=== PATIENT | female | born 1935 | race Caucasian/White ===

== ENCOUNTER 2019-07-06 15:42 | Inpatient (IN) | payer OTHER ==
[2019-07-06] MEDS ORDERED: ALBUTEROL 2.5 MG/3 ML NEB SOL ONE (16:24)
[2019-07-06] MEDS ORDERED: NA CHLORIDE 0.9% 500 ML ONE (16:24)
[2019-07-06] MEDS ORDERED: IPRATROPIUM BROM 0.5MG/2.5ML ONE (16:24)
[2019-07-06 17:17] LABS: Protime INR 1.34
[2019-07-06 17:18] LABS: Absolute Lymphocytes (CBC) 1.1 K/uL (0.7-4.9); Basophils % 0.3 % (0-1.3); Hematocrit 29.9 % (36.0-45.0); Lymphocytes % 7.1 % (15.3-44.8); MPV 7.8 fL (7.6-11.3); RBC Red Blood Cell Count 3.24 M/uL (3.86-4.86)
[2019-07-06] MEDS ORDERED: NA CHLORIDE 0.9% 1,000 ML ONE ×2 (17:28→21:53)
[2019-07-06] MEDS ORDERED: Levofloxacin500mg IV 500 MG/100 ML BAG IV ONE (17:28)
[2019-07-06] MEDS ORDERED: KETOROLAC 30 MG/ML INJ ONE (17:28)
[2019-07-06 17:34] LABS: Albumin 2.3 g/dL (3.4-5.0); Bilirubin Direct 0.4 mg/dL (0-0.2); Magnesium 1.9 mg/dL (1.8-2.4); Potassium 4.6 mmol/L (3.5-5.1); Protein, Total 6.4 g/dL (6.4-8.2); Troponin (Emerg Dept Use Only) 0.08 ng/mL (0.0-0.045)
[2019-07-06 17:52] LABS: Blood Morphology Comment NOT SEEN (NOT SEEN); Platelet Estimate ADEQ; Urine White Blood Cell Casts OK
--- NOTE | 2019-07-06 17:59 | EDPHYS ---
Physician Documentation [facility] Name: Allison Vickers Age: 84 yrs Sex: Female : 1935 Arrival Date: 07/06/2019 Time: 15:44 Bed 14 Private MD: Jalen Curran K ED Physician Terrance Howe HPI: 07/06 16:15 This 84 yrs old Female presents to ER via Wheelchair with complaints of cp Pneumonia. 16:15 The patient or guardian reports cough, that is intermittent. cp 16:15 Onset: The symptoms/episode began/occurred 3 day(s) ago. Associated signs and symptoms: cp Pertinent positives: fever, back pain, Pertinent negatives: chest pain, diarrhea, vomiting, abdominal pain. 16:15 The patient has been recently seen by a physician: the patient's primary care provider, cp with similar presenting complaints, and apparently given a diagnosis of pneumonia, and was sent to the [facility] Emergency Department for further evaluation. Historical: - Allergies: 15:56 Clindamycin; hb 15:56 Codeine; hb - Home Meds: 18:52 hydrocodone-acetaminophen 10-325 mg Oral tab 1 tab every 6 hours [Active]; albuterol ph sulfate 2.5 mg /3 mL (0.083 %) Nebulizer nebu 3 mL 4 times per day [Active]; atorvastatin 40 mg oral tab 1 tab once daily [Active]; carvedilol 12.5 mg oral tab 1 tab 2 times per day [Active]; furosemide 20 mg Oral tab 1 tab once daily [Active]; gabapentin 300 mg oral cap 1 cap 3 times per day [Active]; lisinopril 40 mg Oral tab 1 tab once daily [Active]; loratadine 10 mg oral TbDL 1 tab once daily [Active]; ondansetron HCl 4 mg Oral tab 1 tabs every 8 hours [Active]; pantoprazole 40 mg oral TbEC 1 tab once daily [Active]; Bryant 500 mg oral tab as needed [Active]; potassium chloride 20 mEq Oral TbER 1 tab once daily [Active]; ProAir HFA 90 mcg/actuation inhalation HFAA 2 puffs every 6 hours [Active]; Vitamin D Oral [Active]; - PMHx: 15:56 chronic bronchitis; Hypertension; Arthritis; carpal tunnel syndrome; Hiatal Hernia; hb diverticulosis; iron deficiency anemia; - PSHx: 15:56 Appendectomy; Tubal ligation; Carpal Tunnel Repair; Back; hb - Immunization history:: Adult Immunizations up to date. - Social history:: Smoking status: Patient/guardian denies using tobacco. - Ebola Screening: : No symptoms or risks identified at this time. ROS: 16:20 Constitutional: Positive for poor PO intake, Negative for body aches, chills, fever. cp 16:20 Eyes: Negative for injury, pain, redness, and discharge. cp 16:20 ENT: Negative for drainage from ear(s), ear pain, sore throat, difficulty swallowing, difficulty handling secretions. 16:20 Cardiovascular: Negative for chest pain, edema, palpitations. 16:20 Respiratory: Positive for cough, shortness of breath, Negative for hemoptysis, wheezing. 16:20 Abdomen/GI: Negative for abdominal pain, nausea, vomiting, and diarrhea, constipation, anorexia, black/tarry stool, rectal bleeding. 16:20 Back: Positive for chronic pain. 16:20 : Negative for urinary symptoms. 16:20 Skin: Negative for cellulitis, rash. 16:20 Neuro: Negative for altered mental status, headache, numbness, syncope, weakness. 16:20 All other systems are negative. Exam: 16:25 Constitutional: The patient appears in no acute distress, alert, awake, cp non-diaphoretic, non-toxic, well developed, well nourished, uncomfortable. 16:25 Head/Face: Normocephalic, atraumatic. cp 16:25 Eyes: Periorbital structures: appear normal, Pupils: equal, round, and reactive to light and accomodation, Extraocular movements: intact throughout, Conjunctiva: normal, no exudate, no injection, Sclera: no appreciated abnormality, Lids and lashes: appear normal, bilaterally. 16:25 ENT: External ear(s): are unremarkable, Ear canal(s): are normal, clear, TM's: bulging, is not appreciated, bilaterally, dullness, bilaterally, erythema, is not appreciated, bilaterally, Nose: is normal, Mouth: Lips: moist, Oral mucosa: pink and intact, moist, Posterior pharynx: is normal, airway is patent, no erythema, no exudate. 16:25 Neck: ROM/movement: is normal, is supple, without pain, no range of motions limitations, no meningismus, no nuchal rigidity, Lymph nodes: no appreciated lymphadenopathy. 16:25 Chest/axilla: Inspection: normal, Palpation: is normal, no crepitus, no tenderness. 16:25 Cardiovascular: Rate: normal, Rhythm: regular, Edema: is not appreciated, JVD: is not appreciated. 16:25 Respiratory: the patient does not display signs of respiratory distress, Respirations: labored breathing, is not present, intercostal retractions, are absent, shallow respirations, that is mild, tachypnea, is not appreciated, Breath sounds: decreased breath sounds, that are mild, are located in both bases, stridor, is not appreciated, wheezing: is not appreciated. 16:25 Abdomen/GI: Inspection: abdomen appears normal, Bowel sounds: active, all quadrants, Palpation: abdomen is soft and non-tender, in all quadrants, rebound tenderness, is not appreciated, voluntary guarding, is not appreciated, involuntary guarding, is not appreciated. 16:25 Back: pain, that is moderate, ROM is painful. 16:25 Skin: cellulitis, is not appreciated, no rash present. 16:25 Neuro: Orientation: to person, place \T\ time. Mentation: is normal, Motor: moves all fours, strength is normal. 16:46 ECG was reviewed by the Attending Physician. cp Vital Signs: 15:53 BP 67 / 49; Pulse 82; Resp 20; Temp 97.8; Pulse Ox 89% on R/A; Weight 49.9 kg; Height 5 hb ft. 4 in. (162.56 cm); Pain 9/10; 16:05 BP 89 / 51; ph 17:16 BP 84 / 47; Pulse 69; Resp 18; Pulse Ox 100% on 100% Nebulizer Mask; ph 17:21 BP 88 / 69; ph 17:45 BP 96 / 38; Pulse 69; Resp 16; Pulse Ox 96% on R/A; ph 18:39 BP 99 / 48; Pulse 71; Resp 18; Pulse Ox 93% on R/A; ph 19:22 BP 92 / 48; Pulse 66; Resp 30; Pulse Ox 92% on R/A; rv 19:45 BP 87 / 48; Pulse 73; Resp 16; Pulse Ox 96% on R/A; rv 20:00 BP 83 / 49; Pulse 73; Resp 16; Pulse Ox 96% on R/A; rv 20:15 BP 97 / 49; Pulse 75; Resp 17; Pulse Ox 96% on R/A; rv 15:53 Body Mass Index 18.88 (49.90 kg, 162.56 cm) hb Procedures: 07/07 14:04 Central Line: the site was prepped with Betadine, in sterile fashion, a triple lumen jr8 catheter was inserted, in the right femoral vein, in 1 attempts. placement was verified, by blood return, the site was dressed with 4X4s, Tegaderm, foam tape, using sterile technique, the patient tolerated the procedure, well. MDM: 07/06 16:[address] [facility] 16:30 Differential diagnosis: bronchitis, flu, pneumonia, sepsis. cp 07/07 14:02 Data reviewed: vital signs, nurses notes, lab test result(s), EKG, radiologic studies, jr8 plain films. Data interpreted: Pulse oximetry: on BIPAP is 97 %. Interpretation: acceptable. Counseling: I had a detailed discussion with the patient and/or guardian regarding: the historical points, exam findings, and any diagnostic results supporting the discharge/admit diagnosis, lab results, radiology results, the need for further work-up and treatment in the hospital. ED course: Patient started to deteriorate this AM. Work of breathing had increased and BP started to decreased. Hospital medicine was called down. We switched patients Abx and did a couple of fluid boluses along with increasing levophed. I placed central line in patient. BIPAP also added this AM. Patient doing much better . 07/06 16:13 Order name: Basic Metabolic Panel; Complete Time: 17:48 cp 07/06 17:48 Interpretation: Normal except: NA 135; BUN 36; CRE 2.01; GFR 24. cp 07/06 16:13 Order name: CBC with Diff; Complete Time: 19:04 cp 07/06 17:29 Interpretation: Normal except: WBC 15.9; RBC 3.24; HGB 10.2; HCT 29.9; EARLE% 84.0; LYM% cp 7.1; NEUT A 13.3; MNA 1.4. 07/06 16:13 Order name: LFT's; Complete Time: 17:48 cp 07/06 17:48 Interpretation: Normal except: ALK 139; BILID 0.4; ALB 2.3; GLOB 4.1; A/G 0.6. cp 07/06 16:13 Order name: Magnesium; Complete Time: 17:48 cp 07/06 16:13 Order name: NT PRO-BNP; Complete Time: 17:48 cp 07/06 17:48 Interpretation: Abnormal: NT PRO-BNP 9706. cp 07/06 16:13 Order name: PT-INR; Complete Time: 17:28 cp 07/06 17:29 Interpretation: Reviewed. cp 07/06 16:13 Order name: Troponin (emerg Dept Use Only); Complete Time: 17:48 cp 07/06 17:48 Interpretation: Abnormal: TROPED 0.08. cp 07/06 16:13 Order name: Procalcitonin; Complete Time: 19:04 cp 07/06 19:05 Interpretation: Abnormal: Procalcitonin 57.37. cp 07/06 16:13 Order name: Lactate; Complete Time: 17:28 cp 07/06 17:29 Interpretation: Reviewed. cp 07/06 16:13 Order name: Blood Culture Adult (2) cp 07/06 16:13 Order name: Urine Microscopic Only; Complete Time: 10:29 cp 07/06 17:26 Order name: CBC Smear Scan; Complete Time: 19:04 EDMS 07/06 22:42 Order name: Urine Dipstick--Ancillary (enter results) em1 07/06 23:03 Order name: Urine Dipstick-Ancillary; Complete Time: 10:29 EDMS 07/07 00:23 Order name: Group A Streptococcus Rapid Sc; Complete Time: 10:29 EDMS 07/07 00:28 Order name: Influenza Screen (A ; Complete Time: 10:29 EDMS 07/07 00:43 Order name: Lactate; Complete Time: 10:29 EDMS 07/07 06:13 Order name: Lactate; Complete Time: 10:29 EDMS 07/07 06:14 Order name: CBC with Automated Diff; Complete Time: 10:29 EDMS 07/07 06:19 Order name: Creatine Phosphokinase; Complete Time: 10:29 EDMS 07/07 06:19 Order name: CKMB Creatine Kinase MB; Complete Time: 10:29 EDMS 07/07 06:19 Order name: Troponin I; Complete Time: 10:29 EDMS 07/07 06:58 Order name: Blood Culture EDMS 07/07 07:19 Order name: Basic Metabolic Panel; Complete Time: 10:29 EDMS 07/07 07:19 Order name: Lipid Profile; Complete Time: 10:29 EDMS 07/07 07:19 Order name: T4 Free; Complete Time: 10:29 EDMS 07/07 07:19 Order name: Magnesium; Complete Time: 10:29 EDMS 07/07 07:19 Order name: Thyroid Stimulating Hormone; Complete Time: 10:29 EDMS 07/07 07:46 Order name: Transferrin Sat/Iron Binding; Complete Time: 10:29 EDMS 07/07 07:46 Order name: Ferritin; Complete Time: :29 EDMS 07/06 16:13 Order name: XRAY Chest (1 view); Complete Time: 10:29 cp 07/06 16:13 Order name: EKG; Complete Time: 16:14 cp 07/06 16:13 Order name: Cardiac monitoring; Complete Time: 16:19 cp 07/06 16:13 Order name: EKG - Nurse/Tech; Complete Time: 17:47 cp 07/06 16:13 Order name: IV Saline Lock; Complete Time: 16:20 cp 07/06 16:13 Order name: Labs collected and sent; Complete Time: 16:20 cp 07/06 16:13 Order name: O2 Per Protocol; Complete Time: 17:47 cp 07/06 16:13 Order name: O2 Sat Monitoring; Complete Time: 17:47 cp 07/06 16:13 Order name: Urine Dipstick-Ancillary (obtain specimen); Complete Time: 22:40 cp 07/06 17:06 Order name: Vital Signs; Complete Time: 17:22 cp 07/07 07:46 Order name: Vitamin B12 Level; Complete Time: 10:29 EDMS 07/07 08:43 Order name: RAD; Complete Time: 09:18 EDMS 07/07 09:55 Order name: RAD; Complete Time: 10:29 EDMS EC/04 16:46 Rate is 70 beats/min. Rhythm is regular. [place] interval is normal. QRS interval is normal. cp QT interval is normal. Interpreted by me. Reviewed by me. Administered Medications: 16:57 Drug: Albuterol - atroVENT (3:1) (2.5 mg - 0.5 mg) 3 ml Route: Nebulizer; ph 17:43 Follow up: Response: No adverse reaction ph 16:57 Drug: NS 0.9% 500 ml Route: IV; Rate: bolus; Site: left forearm; ph 17:42 Follow up: Response: No adverse reaction; IV Status: Completed infusion; IV Intake: ph 500ml 17:40 Drug: LevaQUIN 500 mg Volume: 100 ml; Route: IVPB; Infused Over: 60 mins; Site: left ph forearm; 18:38 Follow up: Response: No adverse reaction; IV Status: Completed infusion ph 17:40 Drug: NS 0.9% 500 ml Route: IV; Rate: bolus; Site: left forearm; ph 18:38 Follow up: Response: No adverse reaction; IV Status: Completed infusion; IV Intake: ph 500ml 17:41 Drug: TORadol - Ketorolac 15 mg Route: IVP; Site: left forearm; ph 17:58 Follow up: Response: No adverse reaction; Pain is decreased ph 18:37 Drug: Aspirin Chewable Tablet 324 mg Route: PO; ph 18:38 Follow up: Response: No adverse reaction ph 18:37 Drug: Cefepime 1 grams Route: IVPB; Rate: 200 ml/hr; Infused Over: 30 mins; Site: left ph forearm; 19:25 Follow up: IV Status: Completed infusion rv 19:13 Drug: NS 0.9% (30 ml/kg) 30 ml/kg Route: IV; Rate: bolus; Site: left antecubital; ph Disposition: 07/08 07:54 Co-signature as Attending Physician, Terrance Howe MD I agree with the assessment and [facility] plan of care. Disposition: 07/06/19 17:58 Hospitalization ordered by Marques Thomason for Inpatient Admission. Preliminary diagnosis are Unspecified kidney failure, Other sepsis, Pneumonia due to other specified bacteria. - Bed requested for Intensive Care Unit. - Status is Inpatient Admission. aa5 - Condition is Serious. - Problem is new. - Symptoms have improved. UTI on Admission? No Signatures: Dispatcher [employer] Terrance Lo MD MD cha Nieto, Roman, MD MD rn Calderon, Audri, RN RN aa5 Yariel Light PA PA [id number] Hodan Gayle RN RN ph Terrance Casey PA PA cp Garcia, Shanti, RN RN Sandra Andujar, RN RN Roman Tereza Hossein Owens RN Corrections: (The following items were deleted from the chart) 07/06 16:18 16:17 This 84 yrs old Female presents to ER via Wheelchair with complaints of cp Pneumonia. cp 17:29 17:29 Normal except: WBC 15.9; RBC 3.24; HGB 10.2; HCT 29.9; EARLE% 84.0; LYM% 7.1; NEUT cp A 13.3. cp 07/07 06:05 07/06 17:58 Hospitalization Ordered by Marques Thomason DO for Inpatient Admission. cg Preliminary diagnosis is Unspecified kidney failure; Other sepsis; Pneumonia due to other specified bacteria. Bed requested for Intensive Care Unit. Status is Inpatient Admission. Condition is Serious. Problem is new. Symptoms have improved. UTI on Admission? No. cp 07/07 12:21 06:05 07/06/2019 17:58 Hospitalization Ordered by Marques Thomason DO for Inpatient gm Admission. Preliminary diagnosis is Unspecified kidney failure; Other sepsis; Pneumonia due to other specified bacteria. Bed requested for [facility] ER HOLD. Status is Inpatient Admission. Condition is Serious. Problem is new. Symptoms have improved. UTI on Admission? No. cg 14:24 12:21 07/06/2019 17:58 Hospitalization Ordered by Marques Thomason DO for Inpatient aa5 Admission. Preliminary diagnosis is Unspecified kidney failure; Other sepsis; Pneumonia due to other specified bacteria. Bed requested for Intensive Care Unit. Status is Inpatient Admission. Condition is Serious. Problem is new. Symptoms have improved. UTI on Admission? No. gm
--- NOTE | 2019-07-06 17:59 | ER ---
Nurse's Notes [facility] Name: Allison Vickers Age: 84 yrs Sex: Female : 1935 Arrival Date: 07/06/2019 Time: 15:44 Bed 14 Private MD: Jalen Curran K Diagnosis: Unspecified kidney failure;Other sepsis;Pneumonia due to other specified bacteria Presentation: 07/06 15:52 Presenting complaint: Sent by Dr. Amin for RLL pneumonia, SOB, mid back pain, and hb decreased oral intake x 3 days. Transition of care: patient was not received from another setting of care. Onset of symptoms was July 03, 2019. Risk Assessment: Do you want to hurt yourself or someone else? Patient reports no desire to harm self or others. Care prior to arrival: None. 15:52 Method Of Arrival: Wheelchair hb 15:52 Acuity: JESUS 2 hb 16:11 Initial Sepsis Screen: Does the patient meet any 2 criteria? Mean Arterial Pressure ph (MAP) < 65. Does the patient have a suspected source of infection? Yes: Productive cough/pneumonia. Historical: - Allergies: 15:56 Clindamycin; hb 15:56 Codeine; hb - Home Meds: 18:52 hydrocodone-acetaminophen 10-325 mg Oral tab 1 tab every 6 hours [Active]; albuterol ph sulfate 2.5 mg /3 mL (0.083 %) Nebulizer nebu 3 mL 4 times per day [Active]; atorvastatin 40 mg oral tab 1 tab once daily [Active]; carvedilol 12.5 mg oral tab 1 tab 2 times per day [Active]; furosemide 20 mg Oral tab 1 tab once daily [Active]; gabapentin 300 mg oral cap 1 cap 3 times per day [Active]; lisinopril 40 mg Oral tab 1 tab once daily [Active]; loratadine 10 mg oral TbDL 1 tab once daily [Active]; ondansetron HCl 4 mg Oral tab 1 tabs every 8 hours [Active]; pantoprazole 40 mg oral TbEC 1 tab once daily [Active]; Bryant 500 mg oral tab as needed [Active]; potassium chloride 20 mEq Oral TbER 1 tab once daily [Active]; ProAir HFA 90 mcg/actuation inhalation HFAA 2 puffs every 6 hours [Active]; Vitamin D Oral [Active]; - PMHx: 15:56 chronic bronchitis; Hypertension; Arthritis; carpal tunnel syndrome; Hiatal Hernia; hb diverticulosis; iron deficiency anemia; - PSHx: 15:56 Appendectomy; Tubal ligation; Carpal Tunnel Repair; Back; hb - Immunization history:: Adult Immunizations up to date. - Social history:: Smoking status: Patient/guardian denies using tobacco. - Ebola Screening: : No symptoms or risks identified at this time. Screenin:11 Abuse screen: Denies threats or abuse. Denies injuries from another. Nutritional ph screening: No deficits noted. Tuberculosis screening: No symptoms or risk factors identified. Fall Risk No fall in past 12 months (0 pts). No secondary diagnosis (0 pts). IV access (20 points). Ambulatory Aid- Crutches/Cane/Walker (15 pts). Gait- Weak (10 pts.). Mental Status- Oriented to own ability (0 pts). Total Francisco Fall Scale indicates High Risk Score (45 or more points). Fall prevention measures have been instituted. Side Rails Up X 2 Placed Close to Nursing Station Frequent Obs/Assessments Occuring Family Present and informed to notify staff if the need to leave the bedside As available patient and family educated on Fall Prevention Program and Strategies. Assessment: 16:45 General: Appears in no apparent distress. uncomfortable, slender, well groomed, ph Behavior is cooperative, appropriate for age. Pain: Complains of pain in back. Neuro: Level of Consciousness is awake, alert, obeys commands, Oriented to person, place, time, situation. Cardiovascular: Capillary refill is sluggish in bilateral fingers Patient's skin is warm and dry. Respiratory: Reports shortness of breath cough that is pain with cough Airway is patent Respiratory effort is even, unlabored, Respiratory pattern is regular, symmetrical, Breath sounds are diminished bilaterally. GI: Reports decreased appetite x 3 days Patient currently denies abdominal pain, diarrhea, nausea, vomiting. Derm: Skin is fragile, is thin, Skin is pink, warm \T\ dry. Musculoskeletal: Circulation, motion, and sensation intact. Range of motion: intact in all extremities. 17:45 Reassessment: Patient appears in no apparent distress at this time. Patient and/or ph family updated on plan of care and expected duration. Pain level reassessed. Patient is alert, oriented x 3, equal unlabored respirations, skin warm/dry/pink. 18:39 Reassessment: Patient appears in no apparent distress at this time. Patient and/or ph family updated on plan of care and expected duration. Pain level reassessed. Patient is alert, oriented x 3, equal unlabored respirations, skin warm/dry/pink. Patient denies pain at this time. 19:22 Reassessment: Patient appears in no apparent distress at this time. PATIENT APPEARS TO rv BE COMFORTABLE AT THIS MOMENT. HOSPITALIST CAME IN AND TALKED TO THE PATIENT AND FAMILY, EXPLAINED THE PLAN OF CARE. PATIENT IS FOR ADMISSION IN ICU. PATIENT AND FAMILY AGREED. 20:20 Reassessment: BLOOD PRESSURE STAYS ON THE LOW SIDE AFTER THE BOLUS 30ML/KG. REFERRED TO rv DR CASE, GIVEN ANOTHER BOLUS OF NS. PRESSURE IS MORE STABLE OF THIS MOMENT. PATIENT AND FAMILY UPDATED ON THE STATUS OF BED ASSIGNMENT. 07/07 13:50 Reassessment: Gave report to SAMANTHA Wheeler. Information from the SBAR was given. all rb1 questions asked and answered. Vital Signs: 07/06 15:53 BP 67 / 49; Pulse 82; Resp 20; Temp 97.8; Pulse Ox 89% on R/A; Weight 49.9 kg; Height 5 hb ft. 4 in. (162.56 cm); Pain 9/10; 16:05 BP 89 / 51; ph 17:16 BP 84 / 47; Pulse 69; Resp 18; Pulse Ox 100% on 100% Nebulizer Mask; ph 17:21 BP 88 / 69; ph 17:45 BP 96 / 38; Pulse 69; Resp 16; Pulse Ox 96% on R/A; ph 18:39 BP 99 / 48; Pulse 71; Resp 18; Pulse Ox 93% on R/A; ph 19:22 BP 92 / 48; Pulse 66; Resp 30; Pulse Ox 92% on R/A; rv 19:45 BP 87 / 48; Pulse 73; Resp 16; Pulse Ox 96% on R/A; rv 20:00 BP 83 / 49; Pulse 73; Resp 16; Pulse Ox 96% on R/A; rv 20:15 BP 97 / 49; Pulse 75; Resp 17; Pulse Ox 96% on R/A; rv 15:53 Body Mass Index 18.88 (49.90 kg, 162.56 cm) hb ED Course: 15:44 Patient arrived in ED. as 15:45 Jalen Curran MD is Private Physician. as 15:53 Triage completed. hb 15:53 Arm band placed on. hb 15:57 Terrance Casey PA is PHCP. cp 15:57 Terrance Howe MD is Attending Physician. cp 16:02 Hodan Gayle, SAMANTHA is Primary Nurse. ph 16:12 Patient has correct armband on for positive identification. Placed in gown. Bed in low ph position. Call light in reach. Side rails up X2. monitoring tech on. Pulse ox on. NIBP on. Door closed. Warm blanket given. 16:32 XRAY Chest (1 view) In Process Unspecified. EDMS 16:45 Inserted saline lock: 22 gauge in left forearm, using aseptic technique. ph 16:59 EKG done, by school laboratory technician. reviewed by Terrance CATALAN. 3 17:54 Marques Case DO is Hospitalizing Provider. cp 18:39 Patient admitted, IV remains in place. ph 22:30 No provider procedures requiring assistance completed. Chowdary cath inserted, using rv sterile technique, 16 Fr., by or, balloon inflated, to gravity drainage, urine specimen collected. 10/05 07:00 Inserted 22 G R forearm, inserted by mini shifter. rb1 Administered Medications: 10/04 16:57 Drug: Albuterol - atroVENT (3:1) (2.5 mg - 0.5 mg) 3 ml Route: Nebulizer; ph 17:43 Follow up: Response: No adverse reaction ph 16:57 Drug: NS 0.9% 500 ml Route: IV; Rate: bolus; Site: left forearm; ph 17:42 Follow up: Response: No adverse reaction; IV Status: Completed infusion; IV Intake: ph 500ml 17:40 Drug: LevaQUIN 500 mg Volume: 100 ml; Route: IVPB; Infused Over: 60 mins; Site: left ph forearm; 18:38 Follow up: Response: No adverse reaction; IV Status: Completed infusion ph 17:40 Drug: NS 0.9% 500 ml Route: IV; Rate: bolus; Site: left forearm; ph 18:38 Follow up: Response: No adverse reaction; IV Status: Completed infusion; IV Intake: ph 500ml 17:41 Drug: TORadol - Ketorolac 15 mg Route: IVP; Site: left forearm; ph 17:58 Follow up: Response: No adverse reaction; Pain is decreased ph 18:37 Drug: Aspirin Chewable Tablet 324 mg Route: PO; ph 18:38 Follow up: Response: No adverse reaction ph 18:37 Drug: Cefepime 1 grams Route: IVPB; Rate: 200 ml/hr; Infused Over: 30 mins; Site: left ph forearm; 19:25 Follow up: IV Status: Completed infusion rv 19:13 Drug: NS 0.9% (30 ml/kg) 30 ml/kg Route: IV; Rate: bolus; Site: left antecubital; ph Intake: 17:42 IV: 500ml; Total: 500ml. ph 18:38 IV: 500ml; Total: 1000ml. ph Outcome: 17:58 Decision to Hospitalize by Provider. cp 07/07 06:51 Admitted to ER Hold. Please see [facility] for further documentation. rv Condition: stable Discharge instructions given to patient, Instructed on the need for admit. 14:24 Patient left the ED. aa5 Signatures: Dispatcher [employer] EDMS Denisse Ley Audri RN RN aa5 Hodan Gayle RN RN ph Terrance Casey PA PA cp Caridad Woodruff, RN RN [facility] Sandra Andujar RN RN Gertrudis Mclaughlin [facility] Hossein Owens RN RN rv Corrections: (The following items were deleted from the chart) 07/06 15:54 15:52 Presenting complaint: Sent by Dr. Amin for pneumonia, SOB, and decreased hb oral intake x 3 days hb 15:56 15:52 Presenting complaint: Sent by Dr. Amin for pneumonia, SOB, mid back pain, hb and decreased oral intake x 3 days hb
[2019-07-06] MEDS ORDERED: ASPIRIN 81 MG CHEWABLE TABLET ONE (18:21)
[2019-07-06] MEDS ORDERED: CEFEPIME 1 GM/100 ML BAG IV ONE (18:21)
[2019-07-06] MEDS ORDERED: NA CHLORIDE 0.9% 2,000 ML ONE (19:06)
--- NOTE | 2019-07-06 19:54 | P.HP ---
Certification for Inpatient Patient admitted to: Inpatient With expected LOS: >2 Midnights Patient will require the following post-hospital care: None Practitioner: I am a practitioner with admitting privileges, knowledge of patient current condition, hospital course, and medical plan of care. Services: Services provided to patient in accordance with Admission requirements found in Title 42 Section 412.3 of the Code of Federal Regulations Patient History Date of Service: 07/06/19 Primary Care Provider: Dr. Wong; Cardiology-Dr. Ash Reason for admission: Fatigue, cough, fever History of Present Illness: 84-year-old female presented to the emergency room with fatigue, cough and fever. Patient with history of hypertension and chronic vertebral fractures. Patient takes lisinopril/carvedilol/Lasix. Over the past week patient has been very tired. She also reported cough and congestion. Over the last 2 days she has been running fever. She denies any nausea, vomiting, diarrhea or constipation. She denies any chest pain. She thought it maybe allergies. Her symptoms did not improve therefore she came to the ER for further evaluation. In the ER patient was found to be hypotensive with blood pressures around 75. Patient was given IV fluid bolus per protocol. Patient found to have right sided pneumonia. White count 15.9, hemoglobin 10.2. Sodium 135, potassium 4.6. BUN of 36, creatinine 2.01 with a GFR of 24. Glucose 96. Troponin 0.08. BNP 9700. Lactic acid within normal range at 1.4 but pro calcitonin elevated at 57. Patient was admitted for sepsis/pneumonia. Sepsis protocol in place. When I saw the patient in the ER, she appeared comfortable. Blood pressure still remained low. She was getting her 30 milligram/kilogram bolus of IV fluids. Antibiotics have been initiated. Home medications list reviewed: Yes - Past Medical/Surgical History Diabetic: No -: Hypertension -: Chronic vertebral fractures -: Former smoker -: Back surgery -: Appendectomy Psychosocial/ Personal History: Patient is - Family History Family History: Reviewed- Non-Contributory - Social History Smoking Status: Former smoker Alcohol use: No CD- Drugs: No Caffeine use: Yes Place of Residence: Home Review of Systems General: Fever, Chills, Weakness, Malaise, As per HPI Eyes: Unremarkable ENT: Nose Congestion, As per HPI Respiratory: Cough, Shortness of Breath, As per HPI Cardiovascular: Unremarkable Gastrointestinal: Unremarkable Genitourinary: Unremarkable Musculoskeletal: Unremarkable Integumentary: Unremarkable Neurological: Unremarkable Lymphatics: Unremarkable Physical Examination - Physical Exam General: Alert, In no apparent distress, Oriented x3, Cooperative HEENT: Atraumatic, Normocephalic, PERRLA, Other (Dry mucous membranes) Neck: Supple, No Thyromegaly Respiratory: Crackles/rales (Crackles to the right side) Cardiovascular: Normal pulses, Regular rate/rhythm Gastrointestinal: Normal bowel sounds, Soft and benign, Non-distended, No tenderness, No masses, No rebound, No guarding Musculoskeletal: No contractures, No erythema, No tenderness, No warmth, Kyphosis, Scoliosis Integumentary: No tenderness/swelling, No erythema, No warmth, No cyanosis Neurological: Normal speech, Normal strength at 5/5 x4 extr, Normal tone, Normal affect - Studies Laboratory Data (last 24 hrs) 07/06/19 16:40: PT 15.6 H, INR 1.34 07/06/19 16:40: WBC 15.9 H, Hgb 10.2 L, Hct 29.9 L, Plt Count 233 07/06/19 16:40: Sodium 135 L, Potassium 4.6, BUN 36 H, Creatinine 2.01 H, Glucose 96, Magnesium 1.9, Total Bilirubin 1.0, AST 20, ALT 21, Alkaline Phosphatase 139 H Assessment and Plan - Plan Impression: Sepsis secondary to right upper lobe pneumonia Acute renal injury suspect dehydration Elevated troponin likely cardiac stress related to sepsis History of hypertension Chronic vertebral fractures Anemia likely of chronic disease Plan: Sepsis secondary to right upper lobe pneumonia: Patient will be admitted to ICU for close monitoring. Will continue with sepsis protocol. Patient has received 30 milligram/kilogram bolus of normal saline. Will continue with aggressive IV fluid hydration. Will maintain map of 65. IV antibiotics- Rocephin and Zithromax initiated. Will obtain sputum, blood cultures. Will recheck chest x-ray tomorrow. Will also obtain echocardiogram to further evaluate. Cardiology consulted due to elevated troponin but this is likely related to cardiac stress. Will continue to monitor closely. Will hold her lisinopril and Lasix due to low blood pressure. Monitor electrolytes. Replacement protocol in place. DVT prophylaxis-Lovenox provided. Daytime hospitalist will continue her care. Will follow up on sepsis protocol. Anticipate discharge in the next 3-4 days pending clinical improvement. Acute renal injury suspect dehydration: Continue with aggressive IV fluid hydration. Replace in protocol in place. Continue to monitor lab closely. Will hold her lisinopril and Lasix. Elevated troponin likely cardiac stress related to sepsis: Continue monitor cardiac enzymes. Cardiology consulted to further assess. Likely no need for intervention. History of hypertension: Continue to hold blood pressure medication from home. Patient takes lisinopril and Lasix. Need to investigate other medications. Chronic vertebral fractures: May need to provide medication for pain. Anemia likely of chronic disease: Will check iron and B12 studies. Monitor hemoglobin closely. Discharge Plan: Home Plan to discharge in: Greater than 2 days - Advance Directives Does patient have a Living Will: No Does patient have a Durable POA for Healthcare: No - Code Status/Comfort Care Code Status Assessed: Yes (Patient is full code) Time Spent Managing Pts Care (In Minutes): 60
[2019-07-06] MEDS ORDERED: NOREPINEPHRINE 4mg/D5W 250mL 4 MG/250 ML BAG IV ONE (21:51)
[2019-07-06] MEDS ORDERED: BENZONATATE 100 MG CAP PO PRN (22:41)
[2019-07-06] MEDS ORDERED: FAMOTIDINE 20 MG TAB PO SCH (22:41)
[2019-07-06] MEDS ORDERED: ONDANSETRON 4 MG/2 ML VIAL IV PRN (22:41)
[2019-07-06] MEDS ORDERED: ACETAMINOPHEN 500 MG TAB PO PRN (22:41)
[2019-07-06] MEDS ORDERED: CEFTRIAXONE 1 GM/NS 50 ML 1 GM/50 ML BAG IV SCH (22:41)
[2019-07-06] MEDS ORDERED: GUAIFENESIN 600 MG SA TAB PO PRN (22:41)
[2019-07-06] MEDS ORDERED: NACHLORIDE 0.45% 1,000 ML IV SCH (22:41)
[2019-07-06 23:02] LABS: Urine Blood NEGATIVE (NEG); Urine Glucose NEGATIVE (NEG); Urine Protein 1+ (NEG); Urine Specific Gravity 1.015 (1.005-1.030)
[2019-07-06 23:13] LABS: Urine Amorphous Sediment 2+ /HPF (NONE SEEN); Urine Bacteria <20 /HPF (<20); Urine Culture Reflex Order NOT NEEDED; Urine Mucus LIGHT /HPF (NONE SEEN); Urine RBC NONE SEEN /HPF (NONE SEEN)
[2019-07-06] MEDS ORDERED: NACHLORIDE 0.45% 1,000 ML IV ONE (23:34)
[2019-07-06] MEDS ORDERED: CEFTRIAXONE/SWI 1gm 1 GM/10 ML SYR ONE (23:34)
[2019-07-06] MEDS ORDERED: FAMOTIDINE 20 MG/2 ML VIAL IV ONE (23:34)
--- NOTE | 2019-07-07 00:48 | P.INFCA ---
Sepsis Focused Assessment - Focused Assessment Complete? Sepsis Focused Assessment Completed?: Yes - Sepsis Screen Result Septic Shock: Positive - Evaluation Current stage of sepsis: Septic shock - Vital Signs Reviewed: Yes Heart rate: 66 Blood Pressure: 97/60 Respiratory Rate: 15 - Examination Date exam was performed: 07/07/19 Time exam was performed: 00:48 Heart: Regular rate/rhythm Lungs: Crackles Peripheral pulses: 3+ Normal Peripheral pulse location: Radial Capillary refill: >2 Seconds Skin examination: Normal turgor
--- NOTE | 2019-07-07 00:53 | P.PN ---
Subjective Date of Service: 07/07/19 Primary Care Provider: Dr. Wong; Cardiology-Dr. Ash Chief Complaint: Fatigue, cough, fever Subjective: Other (Patient stable this time. Patient was started on Levophed earlier. Blood pressure improved. Continue IV antibiotic therapy.) Physical Examination - Vital Signs Blood Pressure: 97/60 Pulse: 66 Respirations: 15 Pulse Ox (%): 100 - Physical Exam General: Alert, In no apparent distress, Oriented x3, Cooperative HEENT: Atraumatic Neck: Supple Respiratory: Crackles/rales (Crackles to the bases but good air movement bilateral) Cardiovascular: Normal pulses, Regular rate/rhythm Gastrointestinal: Normal bowel sounds, Soft and benign, Non-distended, No tenderness, No masses, No rebound, No guarding Musculoskeletal: No erythema, No tenderness, No warmth Integumentary: No tenderness/swelling, No erythema, No warmth, No cyanosis Neurological: Normal speech, Normal strength at 5/5 x4 extr, Normal tone, Normal affect - Studies Laboratory Data (last 24 hrs) 07/06/19 16:40: PT 15.6 H, INR 1.34 07/06/19 16:40: WBC 15.9 H, Hgb 10.2 L, Hct 29.9 L, Plt Count 233 07/06/19 16:40: Sodium 135 L, Potassium 4.6, BUN 36 H, Creatinine 2.01 H, Glucose 96, Magnesium 1.9, Total Bilirubin 1.0, AST 20, ALT 21, Alkaline Phosphatase 139 H Medications List Reviewed: Yes Assessment & Plan Discharge Plan: Home Plan to discharge in: Greater than 2 days - Code Status/Comfort Care Code Status Assessed: Yes (Patient is full code) Physician Review Additional Text: Impression: Septic shock secondary to right upper lobe pneumonia Acute renal injury suspect dehydration Elevated troponin likely cardiac stress related to sepsis History of hypertension Chronic vertebral fractures Anemia likely of chronic disease Plan: Septic shock secondary to right upper lobe pneumonia: Patient continues with aggressive IV fluid hydration. Patient was started on Levophed to maintain map of 65. Continue IV antibiotic therapy-Rocephin, Zithromax. Sputum, blood cultures obtained. Recheck chest x-ray this morning. Maintain sats above 90%. Continue to follow lab closely. Echocardiogram ordered. Patient admitted to ICU for close monitoring. Cardiology consulted due to elevated troponin but this is likely related to cardiac stress. Will hold her lisinopril and Lasix due to low blood pressure and acute renal failure. Will consult Nephrology to further monitor and address. Electrolyte replacement protocol in place. DVT prophylaxis-Lovenox provided. Daytime hospitalist will continue her care. Anticipate discharge in the next 3-4 days with clinical improvement Acute renal injury suspect dehydration: Continue with aggressive IV fluid hydration. Patient now on Levophed. Continue to hold lisinopril/Lasix. Nephrology consulted to further address. Elevated troponin likely cardiac stress related to sepsis: Continue to monitor cardiac enzymes. Cardiology consulted to further assess. Likely no need for intervention. Echocardiogram ordered. History of hypertension: Continue to hold blood pressure medication-lisinopril/ Lasix. Need to investigate other medications. Chronic vertebral fractures: May need to provide medication for pain. Anemia likely of chronic disease: Will check iron and B12 studies. Monitor hemoglobin closely. Time Spent Managing Pts Care (In Minutes): 55
[2019-07-07] MEDS ORDERED: NOREPINEPHRINE 4mg/D5W 250mL 4 MG/250 ML BAG IV ONE (02:57)
--- NOTE | 2019-07-07 04:39 | EKG ---
Test Date: 2019-07-06 Test Time: 16:41:22 Jewelry Maker: DANY MEASUREMENT RESULTS: Intervals: Rate: 70 MN: 130 QRSD: 70 QT: 358 QTc: 386 [place]: P: 75 MN: 130 QRS: 79 T: 62 INTERPRETIVE STATEMENTS: Normal sinus rhythm Normal ECG Compared to ECG 06/07/1997 07:03:00 No significant changes Electronically Signed On 07-07-19 04:38:27 CDT by Bruce Mckenzie
[2019-07-07 06:04] LABS: Absolute Lymphocytes (CBC) 0.4 K/uL (0.7-4.9); Basophils % 0.3 % (0-1.3); Hematocrit 31.7 % (36.0-45.0); Lymphocytes % 11.7 % (15.3-44.8); MPV 7.8 fL (7.6-11.3); RBC Red Blood Cell Count 3.39 M/uL (3.86-4.86)
[2019-07-07 06:19] LABS: CKMB Creatine Kinase MB 2.4 ng/mL (0.3-3.6); Troponin I 0.04 ng/mL (0.0-0.045)
[2019-07-07 07:19] LABS: Magnesium 1.7 mg/dL (1.8-2.4); Potassium 4.6 mmol/L (3.5-5.1); Thyroid Stimulating Hormone 0.817 uIU/mL (0.360-3.740)
[2019-07-07 07:46] LABS: Ferritin 212.6 ng/mL (8-388)
[2019-07-07] MEDS: HYDROCODONE/APAP 7.5/325 MG TAB PO PRN ×2 (07:50→18:18)
[2019-07-07] MEDS ORDERED: MAGNESIUM SULFATE 1 gm IVPB 1 GM/100 ML BAG IV ONE ×2 (08:04→09:07)
--- NOTE | 2019-07-07 08:41 | RAD REPORT ---
EXAM DESCRIPTION: Jairon Single View07/07/2019 7:01 am CLINICAL HISTORY: Chest pain COMPARISON: July 06, 2019 FINDINGS: Mild worsening in the right upper lobe consolidation No other change IMPRESSION: Mild worsening in the right upper lobe consolidation probably representing pneumonia. Th is be followed until it is clear to help exclude a post obstructive process/underlying mass
[2019-07-07] MEDS: FOLIC ACID 1 MG TABLET PO SCH (09:00)
[2019-07-07] MEDS: ASPIRIN EC 81 MG TAB PO SCH (09:00)
[2019-07-07] MEDS: FAMOTIDINE 20 MG TAB PO SCH (09:00)
[2019-07-07] MEDS ORDERED: ENOXAPARIN 40 MG/0.4 ML SQ SCH (09:00)
[2019-07-07] MEDS: THIAMINE HCL 100 MG TABLET PO SCH (09:00)
[2019-07-07] MEDS ORDERED: AZITHROMYCIN IV 500 MG in NA CHLORIDE 0.9% 250 ML IVPB SCH (09:00)
[2019-07-07] MEDS ORDERED: CEFTRIAXONE/SWI 1gm 1 GM/10 ML SYR IV SCH (09:00)
[2019-07-07] MEDS: ENOXAPARIN 30 MG/0.3 ML SQ SCH (09:00)
[2019-07-07] MEDS ORDERED: IPRATROPIUM BROM 0.5MG/2.5ML ONE (09:03)
[2019-07-07] MEDS ORDERED: ALBUTEROL 2.5 MG/3 ML NEB SOL ONE (09:03)
[2019-07-07] MEDS ORDERED: FOLIC ACID 1 MG TABLET ONE (09:06)
[2019-07-07] MEDS ORDERED: ENOXAPARIN 30 MG/0.3 ML SQ ONE (09:06)
[2019-07-07] MEDS ORDERED: ASPIRIN EC 81 MG TAB PO ONE (09:06)
[2019-07-07] MEDS ORDERED: FAMOTIDINE 20 MG/2 ML VIAL IV ONE (09:07)
[2019-07-07] MEDS ORDERED: NACHLORIDE 0.45% 0 ML IV ONE (09:07)
[2019-07-07] MEDS ORDERED: CEFTRIAXONE/SWI 1gm 0 GM/0 ML SYR ONE (09:07)
[2019-07-07] MEDS: ALBUTEROL 2.5 MG/3 ML NEB SOL NEB PRN (09:10)
[2019-07-07] MEDS: IPRATROPIUM BROM 0.5MG/2.5ML NEB PRN (09:10)
[2019-07-07] MEDS ORDERED: ACETAMINOPHEN 500 MG TAB ONE (09:24)
[2019-07-07] MEDS ORDERED: Levofloxacin500mg IV 500 MG/100 ML BAG IV ONE (09:27)
[2019-07-07] MEDS ORDERED: FAMOTIDINE 20 MG TAB ONE (09:27)
[2019-07-07] MEDS ORDERED: D5 0.45 NS 1,000 ML IV ONE (09:27)
[2019-07-07] MEDS ORDERED: ACETAMINOPHEN 500 MG TAB PO ONE (09:30)
--- NOTE | 2019-07-07 09:53 | RAD REPORT ---
EXAM DESCRIPTION: Jairon Single View07/07/2019 9:35 am CLINICAL HISTORY: Shortness of breath COMPARISON: July 07 FINDINGS: Mild worsening in the right upper lobe consolidation. Left lung appears clear The heart is normal size IMPRESSION: Mild worsening in the right upper lobe consolidation consistent with pneumonia. This be followed until it is clear to exclude a post obstructive process/underlying mass
--- NOTE | 2019-07-07 09:54 | RAD REPORT ---
EXAM DESCRIPTION: Jairon Single View07/07/2019 8:30 am CLINICAL HISTORY: Cough COMPARISON: none FINDINGS: Moderate right upper lobe opacity Left lung appears clear of acute infiltrate. The heart is normal size IMPRESSION: Moderate right upper lobe opacity probably pneumonia
[2019-07-07] MEDS: Levofloxacin500mg IV 500 MG/100 ML BAG IV SCH (10:00)
[2019-07-07] MEDS: CEFEPIME/SWI 1gm 10 ML IV SCH (10:00)
[2019-07-07] MEDS ORDERED: D5 0.45 NS 1,000 ML IV SCH (10:00)
[2019-07-07] MEDS ORDERED: NA CHLORIDE 0.9% 500 ML ONE ×2 (10:28→11:46)
[2019-07-07] MEDS ORDERED: THIAMINE HCL 100 MG TABLET ONE (11:23)
--- NOTE | 2019-07-07 13:22 | P.CNS ---
Date of Consult: 07/07/19 Reason for Consult: AMBER Primary Care Provider: Dr. Wong; Cardiology-Dr. Ash Chief Complaint: Fatigue, cough, fever History of Present Illness: An 84 Y/o woman with PMHX of HTN , CHF ,CHronic vertebral fractures.Patient takes lisinopril/carvedilol/Lasix. sent from pulmonary clinic for PNA Pt was complaining of SOB and productive cough for 2-3 days, seen by her die stamper , CXR revealed PNA, pt instructed to come to ER in ER pt was hypotensive , febrile, Cr elevated to 2.0, elevated pro josette , teran placed with minimally UO on admission no chest pain, nausea , vomiting or diarrhea Allergies clindamycin Allergy (Verified 07/06/19 22:38) Itching/Hives/Rash codeine Allergy (Verified 07/06/19 22:38) Itching/Hives/Rash - Past Medical/Surgical History Diabetic: No -: Hypertension -: Chronic vertebral fractures -: Former smoker -: Back surgery -: Appendectomy Psychosocial/ Personal History: Patient is - Social History Alcohol use: No CD- Drugs: No Caffeine use: Yes Place of Residence: Home Physical Examination Temp Pulse Resp BP Pulse Ox 98.4 F 83 21 H 104/55 L 95 07/07/19 12:00 07/07/19 12:00 07/07/19 12:00 07/07/19 12:00 07/07/19 12:00 General: Oriented x3, Mild distress HEENT: Atraumatic Neck: Supple, Without JVD or thyroid abnormality Respiratory: Other (Rt sided rales ) Cardiovascular: No edema, Regular rate/rhythm, No gallops, No rubs, No murmurs Gastrointestinal: Soft and benign Laboratory Data (last 24 hrs) 07/06/19 16:40: PT 15.6 H, INR 1.34 07/06/19 16:40: WBC 15.9 H, Hgb 10.2 L, Hct 29.9 L, Plt Count 233 07/06/19 16:40: Sodium 135 L, Potassium 4.6, BUN 36 H, Creatinine 2.01 H, Glucose 96, Magnesium 1.9, Total Bilirubin 1.0, AST 20, ALT 21, Alkaline Phosphatase 139 H - Problems (1) AMBER (acute kidney injury) Current Visit: Yes Status: Acute Conclusions/Impression: AMBER Cr baseline ~1.0 Possibly due to ischemic ATN and dehydration will dc IVF Cont pressers Cont to hold lasix Septic shock due to PNA Cont ABx f/u cultures BP meds on hold Anemia GINGER will start IV iron when more stable prognosis guarded
[2019-07-07] MEDS ORDERED: HYDROCORTISONE SUC 100 MG INJ IV ONE (13:40)
--- NOTE | 2019-07-07 14:15 | CON ---
Chief Complaint: Trouble breathing. History Of Present Illness: Ms. Vickers came into the hospital with trouble breathing. Entire right u pper lobe is consolidated. She has abnormal procalcitonin levels, other signs of sepsis. She is on norepinephrine now. Her blood pressure is just 78/52. She has a history of severe obstructive lung disease. She was a heavy cigarette smoker until September 2018. She sees Dr. Ash. Dr. Ash told her that she does not have any significant heart disease. She has not had intracoronary stents or by pass surgery or heart catheterization. Apparently, noninvasive tests were done. We do not have any of those. Those are under the care of Dr. Ash. The patient is not having chest pain that she has abnormal troponins, and I am asked to evaluate her for that. Medications: The patient's outpatient medications had been albuterol, Atrovent. Actually, we are no t sure what her outpatient medications had been. Past History: Includes chronic bronchitis, hypotension, arthritis, carpal tunnel syndrome, hiatal he rnia, iron-deficiency anemia, diverticulosis. She has had appendectomy, tubal ligation. Allergies: SHE IS ALLERGIC TO CLINDAMYCIN AND CODEINE. Physical Examination: Vital signs: The patient's heart rate is 90. Her blood pressure 78/52. Attempts to raise her blood pressure being done with the norepinephrine. General: She is alert, not in distress. Cardiac: Within normal limits. Extremities: The skin is still well perfused despite her low blood pressure. Diagnostic Studies: Her electrocardiogram shows sinus rhythm. It is normal in every way. Laboratory Data: Reveals troponin levels of 0.08. N-terminal proBNP is 9706. Creatinine 2.01. She has elevated procalcitonin levels. The procalcitonin was 57.37 when she came in. Impression: The patient's slight rise in enzymes is no doubt related to sepsis from pneumonia, has c onsolidated lung looks. I would be concerned that there might be a mass and not just pneumonia there . At some point, doing a CAT scan might be useful with the patient is deteriorating fairly quickly a nd I think perhaps admitting to her to a higher level of care would be good, I would be in favor of leela gonzalez to a tertiary care facility. She is not even in the ICU now. She is in the ER, hypotensive with sepsis. SH/MODL Voice ID: [id number] Report ID: [id number]
[2019-07-07] MEDS ORDERED: WATER FOR INJ,STERILE 10 ML IV PRN (15:02)
[2019-07-07] MEDS: NOREPINEPHRINE 4 MG in D5W 250 ML IV PRN ×3 (15:16→21:15)
[2019-07-07 17:51] LABS: Urine Protein/Creatinine Ratio 1.38 ratio (<0.15)
[2019-07-07] MEDS: TRAMADOL HCL 50 MG TAB PO PRN (20:22)
[2019-07-07] MEDS ORDERED: FAMOTIDINE 20 MG TAB PO SCH (21:00)
[2019-07-07] MEDS ORDERED: CEFEPIME 1 GM/VIAL IV SCH (21:00)
[2019-07-08] MEDS: NOREPINEPHRINE 4 MG in D5W 250 ML IV PRN (00:01)
[2019-07-08] MEDS: HYDROCODONE/APAP 7.5/325 MG TAB PO PRN (04:45)
[2019-07-08 05:56] LABS: Absolute Lymphocytes (CBC) 0.4 K/uL (0.7-4.9); Basophils % 0.3 % (0-1.3); Hematocrit 28.5 % (36.0-45.0); Lymphocytes % 4.5 % (15.3-44.8); MPV 8.4 fL (7.6-11.3); RBC Red Blood Cell Count 3.11 M/uL (3.86-4.86)
[2019-07-08 06:07] LABS: Magnesium 2.2 mg/dL (1.8-2.4); Potassium 4.4 mmol/L (3.5-5.1)
[2019-07-08] MEDS: TRAMADOL HCL 50 MG TAB PO PRN (07:19)
--- NOTE | 2019-07-08 08:05 | RAD REPORT ---
EXAM DESCRIPTION: US - Renal Ultrasound-Complete - 07/07/2019 9:23 pm CLINICAL HISTORY: Acute kidney injury COMPARISON: None. FINDINGS: The right kidney measures 10.3 x 3.6 x 5.1 cm. The left kidney measures 10.2 x 4.4 x 3.9 cm. Renal cortical thickness and echogenicity are normal. No hydronephrosis or suspicious renal mass. An 11 millimeter cyst is present in the upper pole of the right kidney with a 15 millimeter cyst med ial lower pole right kidney. Urinary bladder is contracted around a Chowdary catheter limiting assessment. IMPRESSION: No hydronephrosis or suspicious renal mass. Benign right renal cysts are identified up to 15 mm in size. Bladder is contracted around a Chowdary catheter.
--- NOTE | 2019-07-08 08:57 | RAD REPORT ---
EXAM DESCRIPTION: RAD - Chest Single View - 07/08/2019 8:13 am CLINICAL HISTORY: Pneumonia COMPARISON: July 07 TECHNIQUE: AP portable chest image was obtained 0810 hours . FINDINGS: Large right upper lobe pneumonia is again identified. Findings are improved but differenti al is minimal. No new finding in the left lung field or lower right lung field. Cardiomediastinal jessica houette is stable. No measurable pleural effusion and no pneumothorax. No acute bony abnormality seen . No acute aortic findings suspected. IMPRESSION: Large right upper lobe pneumonia showing improvement. Interval change from prior day is minimal.
[2019-07-08] MEDS: Levofloxacin500mg IV 500 MG/100 ML BAG IV SCH (09:35)
[2019-07-08] MEDS: ENOXAPARIN 30 MG/0.3 ML SQ SCH (09:35)
[2019-07-08] MEDS: FAMOTIDINE 20 MG TAB PO SCH (09:38)
[2019-07-08] MEDS: ASPIRIN EC 81 MG TAB PO SCH (09:38)
[2019-07-08] MEDS: THIAMINE HCL 100 MG TABLET PO SCH (09:38)
[2019-07-08] MEDS: FOLIC ACID 1 MG TABLET PO SCH (09:38)
[2019-07-08] MEDS: CEFEPIME/SWI 1gm 10 ML IV SCH (09:39)
--- NOTE | 2019-07-08 11:24 | P.PN ---
Subjective Date of Service: 07/09/19 Primary Care Provider: Dr. Wong; Cardiology-Dr. Ash Chief Complaint: Fatigue, cough, fever Subjective: Improving pt with Hx of CHF , amitted for Pneumonia, sepsis and Hypotension was on pressers Today feels better , but still complaining of back pain Cr at baseline consider changing albuterol to Xopenex Physical Examination - Vital Signs Temperature: 97.3 F Blood Pressure: 119/98 Pulse: 120 Respirations: 30 Pulse Ox (%): 98 - Physical Exam General: Oriented x3, Mild distress HEENT: Atraumatic Neck: Supple, Without JVD or thyroid abnormality Respiratory: Rhonchi/gurgles Cardiovascular: No edema, Regular rate/rhythm, Normal S1 S2, No gallops, No rubs , No murmurs Gastrointestinal: Soft and benign Musculoskeletal: No swelling - Studies Medications List Reviewed: Yes Assessment And Plan - Current Problems (Diagnosis) (1) AMBER (acute kidney injury) Current Visit: Yes Status: Acute - Plan AMBER resolved Cr baseline ~1.0 Possibly due to ischemic ATN and dehydration Cont to hold lasix Septic shock due to PNA Cont ABx f/u cultures BP meds on hold off pressers now Anemia GINGER will start IV iron when more stable prognosis guarded Physician Review: Patient Assessed, Agree with Above Assessment and Plan
--- NOTE | 2019-07-08 11:43 | P.PN ---
Subjective Date of Service: 07/08/19 Primary Care Provider: Dr. Wong; Cardiology-Dr. Ash Chief Complaint: Fatigue, cough, fever Patient seen and examined at bedside. No family at bedside. Chart reviewed and case discussed with nursing staff. Patient reports feeling a little better. Continues to complain of back pain Off of Levophed this morning, blood pressure is holding steady at this time Review of Systems 10-point ROS is otherwise unremarkable Physical Examination - Vital Signs Temperature: 97.3 F Blood Pressure: 119/98 Pulse: 120 Respirations: 30 Pulse Ox (%): 98 - Physical Exam General: Alert, In no apparent distress HEENT: Atraumatic, PERRLA, EOMI Neck: Supple, JVD not distended Respiratory: Clear to auscultation bilaterally, Normal air movement Cardiovascular: Regular rate/rhythm, Normal S1 S2 Gastrointestinal: Normal bowel sounds, No tenderness Musculoskeletal: No tenderness Integumentary: No rashes Neurological: Normal speech, Normal tone, Normal affect Lymphatics: No axilla or inguinal lymphadenopathy - Studies Medications List Reviewed: Yes Assessment And Plan - Plan Impression: Septic shock secondary to right upper lobe pneumonia Acute renal injury suspect dehydration Elevated troponin likely cardiac stress related to sepsis History of hypertension Chronic vertebral fractures Anemia likely of chronic disease Plan: Septic shock secondary to right upper lobe pneumonia: -continue IV fluid hydration. -patient currently weaned off of Levophed. Blood pressure is holding steady at this time. -continue IV antibiotics-Levaquin and cefepime. -sputum and blood cultures NG24 -continue supportive care-provide oxygen as needed -continue to hold blood pressure medications at this time. Acute renal injury likely pre renal/ATN -nephrology consulted, recommendations appreciated -Continue to hold lisinopril/Lasix. Elevated troponin likely cardiac stress related to sepsis: -cardiology consulted, recommendations appreciated. No further cardiac interventions planned at this time. History of hypertension: -Continue to hold blood pressure medication-lisinopril/Lasix. Chronic vertebral fractures: -will review home medications Anemia likely of chronic disease: Will check iron and B12 studies. Monitor hemoglobin closely. DVT prophylaxis: Lovenox GI prophylaxis: Protonix, home medication Diet: Heart healthy Disposition: Continue to monitor in the ICU, continue to monitor blood pressures. Physician Review Additional Text: .
[2019-07-08] MEDS ORDERED: HYDROCODONE/APAP 10/325 TAB PO SCH (12:00)
[2019-07-08] MEDS: HYDROCODONE/APAP 10/325 TAB PO PRN ×2 (12:33→19:33)
[2019-07-08] MEDS: ALBUTEROL 2.5 MG/3 ML NEB SOL NEB PRN (13:50)
[2019-07-08] MEDS: IPRATROPIUM BROM 0.5MG/2.5ML NEB PRN (13:50)
[2019-07-09] MEDS: HYDROCODONE/APAP 10/325 TAB PO PRN ×4 (03:40→20:58)
[2019-07-09] MEDS ORDERED: MORPHINE 2 MG/ML SYR IV ONE (04:01)
[2019-07-09 05:12] LABS: Absolute Lymphocytes (CBC) 0.5 K/uL (0.7-4.9); Basophils % 0.2 % (0-1.3); Lymphocytes % 4.3 % (15.3-44.8); MPV 7.8 fL (7.6-11.3); RBC Red Blood Cell Count 3.09 M/uL (3.86-4.86)
[2019-07-09 05:19] VITALS: BMI 21.2
[2019-07-09 05:30] LABS: Magnesium 2.1 mg/dL (1.8-2.4); Potassium 4.7 mmol/L (3.5-5.1)
[2019-07-09] MEDS: Umeclidinium Brm/Vilanterol Tr [Anoro Ellipta 62.5-25 Mcg Inh] IH SCH (09:00)
[2019-07-09] MEDS: FOLIC ACID 1 MG TABLET PO SCH (09:27)
[2019-07-09] MEDS: ENOXAPARIN 30 MG/0.3 ML SQ SCH (09:27)
[2019-07-09] MEDS: ASPIRIN EC 81 MG TAB PO SCH (09:27)
[2019-07-09] MEDS: FAMOTIDINE 20 MG TAB PO SCH (09:27)
[2019-07-09] MEDS: THIAMINE HCL 100 MG TABLET PO SCH (09:28)
[2019-07-09] MEDS: CEFEPIME/SWI 1gm 10 ML IV SCH (09:28)
[2019-07-09] MEDS: Levofloxacin500mg IV 500 MG/100 ML BAG IV SCH (09:29)
[2019-07-09] MEDS: ALBUTEROL 2.5 MG/3 ML NEB SOL NEB PRN (09:42)
[2019-07-09] MEDS: IPRATROPIUM BROM 0.5MG/2.5ML NEB PRN (09:42)
--- NOTE | 2019-07-09 11:10 | ECHO ---
HEIGHT: 5 ft 4 in WEIGHT: 123 lb 12.8 oz DATE OF STUDY: 07/09/[address]: Marques Thomason DO 2-DIMENSIONAL: YES M.MODE: YES DOPPLER: YES COLOR FLOW: YES TDS: NO PORTABLE: NO DEFINITY: NO BUBBLE STUDY: NO DIAGNOSIS: SEPSIS, HYPERTENSION CARDIAC HISTORY: CATHERIZATION: NO SURGERY: NO PROSTHETIC VALVE: NO PACEMAKER: NO MEASUREMENTS (cm) DIASTOLIC (NORMALS) SYSTOLIC (NORMALS) IVSd 1.1 (0.6-1.2) LA Diam 3.7 (1.9-4.0) LVEF 71% LVIDd 4.1 (3.5-5.7) LVIDs 2.4 (2.0-3.5) %FS 40% LVPWd 1.1 (0.6-1.2) Ao Diam 2.6 (2.0-3.7) 2 DIMENSIONAL ASSESSMENT: RIGHT ATRIUM: NORMAL LEFT ATRIUM: NORMAL RIGHT VENTRICLE: NORMAL LEFT VENTRICLE: NORMAL TRICUSPID VALVE: NORMAL MITRAL VALVE: NORMAL PULMONIC VALVE: NORMAL AORTIC VALVE: NORMAL PERICARDIAL EFFUSION: NONE AORTIC ROOT: NORMAL LEFT VENTRICULAR WALL MOTION: NORMAL. DOPPLER/COLOR FLOW: MILD MITRAL AND TRICUSPID REGURGITATION. ESTIMATED RIGHT VENTRICULAR SYSTOLIC PRESSURE 42mmHg (MILD PULMONARY HYPERTENSION). IMPAIRED LEFT VENTRICULAR RELAXATION. COMMENTS: NORMAL 2D ECHO. MILD MITRAL AND TRICUSPID REGURGITATION. MILD PULMONARY HYPERTENSION. IMPAIRED LEFT VENTRICULAR RELAXATION. TECHNOLOGIST: AMOR NG
[2019-07-09] MEDS: TRAMADOL HCL 50 MG TAB PO PRN (13:08)
[2019-07-09] MEDS: ALBUTEROL 2.5 MG/3 ML NEB SOL NEB SCH ×2 (14:25→20:10)
[2019-07-09] MEDS: IPRATROPIUM BROM 0.5MG/2.5ML NEB SCH ×2 (14:25→20:10)
--- NOTE | 2019-07-09 18:01 | P.PN ---
Subjective Date of Service: 07/09/19 Primary Care Provider: Dr. Wong; Cardiology-Dr. Ash Chief Complaint: Fatigue, cough, fever Subjective: Improving Patient seen and examined at bedside. No family at bedside. Chart reviewed and case discussed with nursing staff. Patient reports feeling a little better. Continues to complain of back pain Off of Levophed since yesterday, blood pressure is holding steady at this time Doing well this morning, tolerating an oral diet Review of Systems 10-point ROS is otherwise unremarkable Physical Examination - Vital Signs Temperature: 97.2 F Blood Pressure: 157/77 Pulse: 94 Respirations: 16 Pulse Ox (%): 94 - Physical Exam General: Alert, Oriented x3, Moderate distress HEENT: Atraumatic, PERRLA, EOMI Neck: Supple, JVD not distended Respiratory: Clear to auscultation bilaterally, Normal air movement Cardiovascular: Regular rate/rhythm, Normal S1 S2 Gastrointestinal: Normal bowel sounds, No tenderness Musculoskeletal: No tenderness Integumentary: No rashes Neurological: Normal speech, Normal tone, Normal affect Lymphatics: No axilla or inguinal lymphadenopathy - Studies Microbiology Data (last 24 hrs): 07/06/19 13:00 Sputum Gram Stain - Final Medications List Reviewed: Yes Assessment And Plan - Plan Impression: Septic shock secondary to right upper lobe pneumonia Acute renal injury suspect dehydration Elevated troponin likely cardiac stress related to sepsis History of hypertension Chronic vertebral fractures Anemia likely of chronic disease Plan: Septic shock secondary to right upper lobe pneumonia: -continue IV fluid hydration. -patient currently weaned off of Levophed. Blood pressure is holding steady at this time. -continue IV antibiotics-Levaquin and cefepime. -sputum and blood cultures NG24 -continue supportive care-provide oxygen as needed -continue to hold blood pressure medications at this time. Will restart as blood pressures start to increase Acute renal injury likely pre renal/ATN -nephrology consulted, recommendations appreciated -Continue to hold lisinopril/Lasix. Elevated troponin likely cardiac stress related to sepsis: -cardiology consulted, recommendations appreciated. No further cardiac interventions planned at this time. History of hypertension: -Continue to hold blood pressure medication-lisinopril/Lasix. Chronic vertebral fractures: -will review home medications Anemia likely of chronic disease: Will check iron and B12 studies. Monitor hemoglobin closely. DVT prophylaxis: Lovenox GI prophylaxis: Protonix, home medication Diet: Heart healthy Disposition: Transfer to the floor. Physician Review Additional Text: .
[2019-07-10] MEDS: TRAMADOL HCL 50 MG TAB PO PRN ×2 (00:29→23:13)
[2019-07-10] MEDS: IPRATROPIUM BROM 0.5MG/2.5ML NEB SCH ×4 (01:25→19:25)
[2019-07-10] MEDS: ALBUTEROL 2.5 MG/3 ML NEB SOL NEB SCH ×4 (01:25→19:25)
[2019-07-10] MEDS: HYDROCODONE/APAP 10/325 TAB PO PRN ×3 (02:57→18:05)
--- NOTE | 2019-07-10 03:01 | PN ---
Date of Progress Note: 07/09/2019 Chief Complaint: Acute kidney injury, nonoliguric, associated with prerenal azotemia. Patient responded to treatment. Renal function has improved. Patient has history of congestive heart failure. She was admitted for pneumonia , sepsis, and severe hypotension, septic shock. She required pressors. She has been weaned off pressors. Serum creatinine improved to baseline. Patient has nonoliguric urine output. Electrolytes are stable ranges. Review of Systems: Patient is complaining of chronic pain. Denies nausea, vomiting. Physical Examination: Lungs: Clear to auscultation bilaterally. Heart: S1, S2. Abdomen: Soft, benign. Extremities: No edema. Laboratory Data: Hemoglobin 9.4, WBC 11.6, platelet count 237,000. Sodium 139 , potassium 4.7, chloride 109, CO2 23, BUN 23, creatinine 0.82, calcium 9.0, magnesium 2.1. Impression And Plan: 1. Acute kidney injury. Creatinine level has improved from 2.01 to 0.82. Renal function is plateauing at baseline. There is persistent prerenal azotemia. BUN is 23 and improved from 36. 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 Renal function improved to baseline. Avoid nephrotoxic medication. 2. Chronic pain. Avoid nephrotoxic medication. 3. Anemia. Monitor iron level and iron study will be evaluated to rule out anemia due to iron deficiency. I spent total 36 min including 25 min to coordinate care plan. SAUL/SUNDEEP Voice ID: [id number] Report ID: [id number] BARRY
[2019-07-10 04:35] LABS: Absolute Lymphocytes (CBC) 0.6 K/uL (0.7-4.9); Basophils % 0.4 % (0-1.3); Hematocrit 30.7 % (36.0-45.0); Lymphocytes % 3.6 % (15.3-44.8); RBC Red Blood Cell Count 3.37 M/uL (3.86-4.86)
[2019-07-10 04:42] LABS: BUN Blood Urea Nitrogen 23 mg/dL (7-18); Bicarbonate 22 mmol/L (21-32); Glucose Level 81 mg/dL (74-106); Magnesium 1.9 mg/dL (1.8-2.4); Potassium 4.4 mmol/L (3.5-5.1); Sodium Level 141 mmol/L (136-145)
[2019-07-10 05:32] LABS: Blood Morphology Comment NOT SEEN (NOT SEEN); Platelet Estimate ADEQ
[2019-07-10] MEDS ORDERED: HYDROMORPHONE HCL 0.5 MG/0.5 ML INJ IV ONE (06:34)
--- NOTE | 2019-07-10 07:16 | RAD REPORT ---
EXAM DESCRIPTION: RAD - Chest Single View - 07/10/2019 6:56 am CLINICAL HISTORY: f/u pneumonia Chest pain. COMPARISON: Chest Single View dated 07/08/2019; Chest Single View dated 07/07/2019; Chest Single View dated 07/07/2019; Chest Single View dated 07/06/2019 FINDINGS: Portable technique limits examination quality. Mild improvement in the right upper lobe pneumonia pattern is seen since the comparative study. Small bilateral pleural effusions are present. The heart is mildly enlarged in size. No displaced fracture s. IMPRESSION: Mild improvement in right upper lobe pneumonia since comparative study.
[2019-07-10] MEDS: ASPIRIN EC 81 MG TAB PO SCH (08:09)
[2019-07-10] MEDS: FAMOTIDINE 20 MG TAB PO SCH (08:09)
[2019-07-10] MEDS: THIAMINE HCL 100 MG TABLET PO SCH (08:09)
[2019-07-10] MEDS: ENOXAPARIN 30 MG/0.3 ML SQ SCH (08:10)
[2019-07-10] MEDS: FOLIC ACID 1 MG TABLET PO SCH (08:10)
[2019-07-10] MEDS: Umeclidinium Brm/Vilanterol Tr [Anoro Ellipta 62.5-25 Mcg Inh] IH SCH (08:44)
[2019-07-10] MEDS: CEFEPIME/SWI 1gm 10 ML IV SCH (08:44)
[2019-07-10] MEDS: Levofloxacin500mg IV 500 MG/100 ML BAG IV SCH (09:45)
--- NOTE | 2019-07-10 15:39 | P.PN ---
Subjective Date of Service: 07/10/19 Primary Care Provider: Dr. Wong; Cardiology-Dr. Ash Chief Complaint: Fatigue, cough, fever Patient seen and examined at bedside. No family at bedside. Chart reviewed and case discussed with nursing staff. Patient reports feeling a little better. Continues to complain of back pain Transferred out of the ICU, to the floor. Doing well this morning, tolerating an oral diet Review of Systems 10-point ROS is otherwise unremarkable Physical Examination - Vital Signs Temperature: 97.9 F Blood Pressure: 152/84 Pulse: 104 Respirations: 20 Pulse Ox (%): 95 - Physical Exam General: Alert, In no apparent distress HEENT: Atraumatic, PERRLA, EOMI Neck: Supple, JVD not distended Respiratory: Clear to auscultation bilaterally, Normal air movement Cardiovascular: Regular rate/rhythm, Normal S1 S2 Gastrointestinal: Normal bowel sounds, No tenderness Musculoskeletal: No tenderness Integumentary: No rashes Neurological: Normal speech, Normal tone, Normal affect Lymphatics: No axilla or inguinal lymphadenopathy - Studies Microbiology Data (last 24 hrs): 07/06/19 13:00 Sputum Gram Stain - Final 07/06/19 13:00 Sputum Culture & Sensitivity - Final Medications List Reviewed: Yes Assessment And Plan - Plan Impression: Septic shock secondary to right upper lobe pneumonia Acute renal injury suspect dehydration Elevated troponin likely cardiac stress related to sepsis History of hypertension Chronic vertebral fractures Anemia likely of chronic disease Plan: Septic shock secondary to right upper lobe pneumonia: Resolved -continue IV fluid hydration. -patient currently weaned off of Levophed. Blood pressure is holding steady at this time. -continue IV antibiotics-Levaquin and cefepime. -sputum and blood cultures negative to date -continue supportive care-provide oxygen as needed -continue to hold blood pressure medications at this time. Will restart as blood pressures start to increase Acute renal injury likely pre renal/ATN -nephrology consulted, recommendations appreciated -Continue to hold lisinopril/Lasix. Elevated troponin likely cardiac stress related to sepsis: -cardiology consulted, recommendations appreciated. No further cardiac interventions planned at this time. History of hypertension: -Continue to hold blood pressure medication-lisinopril/Lasix. Chronic vertebral fractures: -will review home medications Anemia likely of chronic disease: Will check iron and B12 studies. Monitor hemoglobin closely. DVT prophylaxis: Lovenox GI prophylaxis: Protonix, home medication Diet: Heart healthy Disposition: Pending symptomatic improvement. Anticipate discharge home in the next 24-48 hr. Physician Review: Patient Assessed, Agree with Above Assessment and Plan Physician Review Additional Text: .
--- NOTE | 2019-07-10 17:28 | PN ---
Date of Progress Note: 07/10/2019 Subjective: The patient was admitted with acute kidney injury, recovering very well. Physical Examination: Vital Signs: When I saw the patient, the patient lying in bed. Blood pressure of 152/84, pulse of 104, afebrile. Chest: Clear to auscultation. Heart: S1, S2. Systolic murmur. Abdomen: Soft, nontender. Extremities: No edema. Laboratory Data: WBC 15.7, H and H 10.3/30.7, platelets of 290. Sodium 141, potassium 4.4, bicarb 22, BUN 23, creatinine 0.6, calcium 9.3, magnesium 1.9. Current Medications: The patient on include cefepime, Levaquin, Lovenox, Tylenol, ipratropium, folic acid, Zofran, guaifenesin, thiamin. Renal ultrasound .. Assessment And Plan: 1. Acute kidney injury secondary to prerenal poor perfusion, acute tubular necrosis, recovered, resolved, normal volume. We will continue to monitor the patient. 2. Sepsis, septic shock secondary to pneumonia. Appropriate dose of antibiotic. 3. Hypertension, controlled, optimal. Continue current treatment. 4. Pneumonia. Continue current antibiotic. We will follow up with primary. CECILIO/SUNDEEP Voice ID: [id number] Report ID: [id number] BARRY
[2019-07-11] MEDS: HYDROCODONE/APAP 10/325 TAB PO PRN ×4 (00:13→19:51)
[2019-07-11] MEDS: ALBUTEROL 2.5 MG/3 ML NEB SOL NEB SCH ×4 (01:30→20:10)
[2019-07-11] MEDS: IPRATROPIUM BROM 0.5MG/2.5ML NEB SCH ×4 (01:30→20:10)
[2019-07-11] MEDS: Umeclidinium Brm/Vilanterol Tr [Anoro Ellipta 62.5-25 Mcg Inh] IH SCH (09:00)
[2019-07-11] MEDS: Levofloxacin500mg IV 500 MG/100 ML BAG IV SCH (09:27)
[2019-07-11] MEDS: THIAMINE HCL 100 MG TABLET PO SCH (09:27)
[2019-07-11] MEDS: FAMOTIDINE 20 MG TAB PO SCH (09:27)
[2019-07-11] MEDS: FOLIC ACID 1 MG TABLET PO SCH (09:28)
[2019-07-11] MEDS: TRAMADOL HCL 50 MG TAB PO PRN ×2 (09:28→16:50)
[2019-07-11] MEDS: CEFEPIME/SWI 1gm 10 ML IV SCH (09:29)
[2019-07-11] MEDS: ENOXAPARIN 30 MG/0.3 ML SQ SCH (09:29)
[2019-07-11] MEDS: ASPIRIN EC 81 MG TAB PO SCH (09:29)
--- NOTE | 2019-07-11 10:51 | P.PN ---
Subjective Date of Service: 07/11/19 Primary Care Provider: Dr. Wong; Cardiology-Dr. Ash Chief Complaint: Fatigue, cough, fever Subjective: No C/O voiced, Improving Patient seen and examined at bedside. No family at bedside. Chart reviewed and case discussed with nursing staff. Patient reports feeling a little better. Doing well this morning, tolerating an oral diet Working a little with PT Review of Systems 10-point ROS is otherwise unremarkable Physical Examination - Vital Signs Temperature: 97.8 F Blood Pressure: 129/84 Pulse: 114 Respirations: 16 Pulse Ox (%): 100 - Physical Exam General: Alert, In no apparent distress, Cachectic, Other (Elderly, frail) HEENT: Atraumatic, PERRLA, EOMI Neck: Supple, JVD not distended Respiratory: Clear to auscultation bilaterally, Normal air movement Cardiovascular: Regular rate/rhythm, Normal S1 S2 Gastrointestinal: Normal bowel sounds, No tenderness Musculoskeletal: No tenderness Integumentary: No rashes Neurological: Normal speech, Normal tone, Normal affect Lymphatics: No axilla or inguinal lymphadenopathy - Studies Microbiology Data (last 24 hrs): 07/06/19 13:00 Sputum Gram Stain - Final 07/06/19 13:00 Sputum Culture & Sensitivity - Final Medications List Reviewed: Yes Assessment And Plan - Plan Impression: Septic shock secondary to right upper lobe pneumonia Acute renal injury suspect dehydration Elevated troponin likely cardiac stress related to sepsis History of hypertension Chronic vertebral fractures Anemia likely of chronic disease Plan: Septic shock secondary to right upper lobe pneumonia: Resolved -patient weaned off of Levophed. Blood pressure is holding steady at this time. -Switch to PO antibiotics-Levaquin -sputum and blood cultures negative to date -continue supportive care-provide oxygen as needed -Restart BP medications Acute renal injury likely pre renal/ATN -nephrology consulted, recommendations appreciated Elevated troponin likely cardiac stress related to sepsis: -cardiology consulted, recommendations appreciated. No further cardiac interventions planned at this time. History of hypertension: -Continue blood pressure medication-lisinopril/Lasix. Chronic vertebral fractures: Anemia likely of chronic disease: Monitor hemoglobin closely. DVT prophylaxis: Lovenox GI prophylaxis: Protonix, home medication Diet: Heart healthy Disposition: Patient will benefit from SNF for further rehabilitation. SW consulted, pending placement. Physician Review: Patient Assessed, Agree with Above Assessment and Plan Physician Review Additional Text: .
[2019-07-11] MEDS: DOCUSATE NA 100 MG CAP PO SCH ×2 (12:21→20:44)
--- NOTE | 2019-07-11 16:28 | P.DS ---
Admission Date: 07/06/19 Discharge Date: 07/11/19 Primary Care Provider: Dr. Wong; Cardiology-Dr. Ash Disposition: TRANSFER TO CARE HOME Discharge Condition: FAIR Reason for Admission: Fatigue, cough, fever Consultations: Nephrology Brief History of Present Illness: 84-year-old female presented to the emergency room with fatigue, cough and fever. Patient with history of hypertension and chronic vertebral fractures. Patient takes lisinopril/carvedilol/Lasix. Over the past week patient has been very tired. She also reported cough and congestion. Over the last 2 days she has been running fever. She denies any nausea, vomiting, diarrhea or constipation. She denies any chest pain. She thought it maybe allergies. Her symptoms did not improve therefore she came to the ER for further evaluation. In the ER patient was found to be hypotensive with blood pressures around 75. Patient was given IV fluid bolus per protocol. Patient found to have right sided pneumonia. White count 15.9, hemoglobin 10.2. Sodium 135, potassium 4.6. BUN of 36, creatinine 2.01 with a GFR of 24. Glucose 96. Troponin 0.08. BNP 9700. Lactic acid within normal range at 1.4 but pro calcitonin elevated at 57. Patient was admitted for sepsis/pneumonia. Sepsis protocol in place. When I saw the patient in the ER, she appeared comfortable. Blood pressure still remained low. She was getting her 30 milligram/kilogram bolus of IV fluids. Antibiotics have been initiated. Hospital Course: Patient was admitted for septic shock secondary right upper lobe pneumonia. She was admitted to the ICU, started on Levophed and IV antibiotics. Sputum blood cultures remained negative throughout the stay. She was provided supportive care as needed. Her symptoms improved, she was weaned off of Levophed. Her blood pressures remained stable, she was transferred to the floor. Her creatinine returned back to baseline. She worked a little better with physical therapy. It was thought that patient would benefit greatly from detention facility. Her antibiotics were converted to oral, social work was consulted and patient was transferred to [facility] once accepted. She otherwise did well throughout the stay Vital Signs/Physical Exam: Temp Pulse Resp BP Pulse Ox 97.7 F 100 H 18 155/86 H 100 07/11/19 12:00 07/11/19 12:00 07/11/19 12:20 07/11/19 12:00 07/11/19 12:20 General: Alert, In no apparent distress HEENT: Atraumatic, PERRLA, EOMI Neck: Supple, JVD not distended Respiratory: Clear to auscultation bilaterally, Normal air movement Cardiovascular: Regular rate/rhythm, Normal S1 S2 Gastrointestinal: Normal bowel sounds, No tenderness Musculoskeletal: No tenderness Integumentary: No rashes Neurological: Normal speech, Normal tone, Normal affect Lymphatics: No axilla or inguinal lymphadenopathy Laboratory Data at Discharge: WBC 15.7 K/uL (4.3-10.9) H D 07/10/19 03:45 Hgb 10.3 g/dL (12.0-15.0) L 07/10/19 03:45 Hct 30.7 % (36.0-45.0) L 07/10/19 03:45 Plt Count 290 K/uL (152-406) D 07/10/19 03:45 PT 15.6 SECONDS (9.5-12.5) H 07/06/19 16:40 INR 1.34 07/06/19 16:40 Sodium 141 mmol/L (136-145) 07/10/19 03:45 Potassium 4.4 mmol/L (3.5-5.1) 07/10/19 03:45 BUN 23 mg/dL (7-18) H 07/10/19 03:45 Creatinine 0.61 mg/dL (0.55-1.3) 07/10/19 03:45 Glucose 81 mg/dL (74-106) 07/10/19 03:45 Magnesium 1.9 mg/dL (1.8-2.4) 07/10/19 03:45 Total Bilirubin 1.0 mg/dL (0.2-1.0) 07/06/19 16:40 AST 20 U/L (15-37) 07/06/19 16:40 ALT 21 U/L (12-78) 07/06/19 16:40 Alkaline Phosphatase 139 U/L (45-117) H 07/06/19 16:40 Troponin I 0.04 ng/mL (0.0-0.045) 07/07/19 05:35 Triglycerides 112 mg/dL (<150) 07/07/19 05:35 Cholesterol 113 mg/dL (<200) 07/07/19 05:35 HDL Cholesterol 30 mg/dL (40-60) L 07/07/19 05:35 Cholesterol/HDL Ratio 3.77 07/07/19 05:35 Home Medications: Albuterol Sulfate [Proair Respiclick] 2 inh IH Q6H PRN 07/07/19 Albuterol Sulfate [Ventolin Hfa] 2 inh IH Q6H PRN 07/07/19 Carvedilol 12.5 mg PO BID 07/07/19 Furosemide 20 mg PO DAILY 07/07/19 Gabapentin 300 mg PO TID 07/07/19 Hydrocodone Bit/Acetaminophen [Hydrocodon-Acetaminophn 10-325] 1 each PO Q6H 02/18 Lisinopril 40 mg PO DAILY 07/07/19 Loratadine 10 mg PO DAILY 07/07/19 Pantoprazole [Protonix Tab*] 40 mg PO DAILY 07/07/19 Potassium Chloride [Klor-Con] 20 meq PO DAILY 07/07/19 Umeclidinium Brm/Vilanterol Tr [Anoro Ellipta 62.5-25 Mcg INH] 1 each IH DAILY 07/07/19 l Gasseri/B Bifidum/B Longum [[facility] Capsule] 1 each PO DAILY PRN 07/07/19 predniSONE [Prednisone*] 20 mg PO BID PRN 07/07/19 Benzonatate [Tessalon Perle*] 100 mg PO TID PRN #15 cap 07/11/19 Docusate [Colace Cap*] 100 mg PO BID cap 07/11/19 levoFLOXacin [Levaquin*] 500 mg PO DAILY #9 tab 07/11/19 New Medications: Benzonatate [Tessalon Perle*] 100 mg PO TID PRN #15 cap PRN Reason: Cough levoFLOXacin [Levaquin*] 500 mg PO DAILY #9 tab Patient Discharge Instructions: Please follow up with the primary care physician in 2-3 days. New medications: Levaquin, an antibiotic for your pneumonia. Return to the emergency room for worsening symptoms. Diet: AHA Activity: Ad jesus manuel Followup: Ankur Nesbitt MD [Primary Care Provider] - Time spent managing pt's care (in minutes): 55
[2019-07-11] MEDS ORDERED: FUROSEMIDE 40 MG/4 ML VIAL IV ONE (20:38)
[2019-07-11] MEDS ORDERED: FUROSEMIDE 40 MG/4 ML VIAL ONE (20:41)
[2019-07-11] MEDS: CARVEDILOL 12.5 MG TAB PO SCH (20:44)
--- NOTE | 2019-07-11 20:47 | PN ---
Date of Progress Note: 07/11/2019 Subjective: The patient was admitted with acute kidney injury. Patient recovered significantly. Th e patient is feeling well. Physical Examination: Vital Signs: When I saw the patient, blood pressure 129/84, pulse of 110. Chest: Clear to auscultation. Heart: S1, S2. Regular. Systolic murmur. Abdomen: Soft, nontender. Extremities: No edema. Laboratory Data: WBC 15.7, H and H 10.3/30.7, platelets 290. Sodium 141, potassium 4.4, bicarb 22, BUN 23, creatinine 0.6, calcium 9.3, magnesium 1.9. Current Medications: The patient on its include. 1.Aspirin. 2.Levaquin 500 daily. 3.Lovenox. 4.Carvedilol 12.5. 5.Lisinopril 40. 6.Lasix 20 daily. 7.Pepcid. Assessment And Plan: 1.Acute kidney injury secondary to poor perfusion acute tubular necrosis, toxic acute tubular necros is secondary to sepsis, recovered, resolved. 2.Hypertension, controlled, optimal. Continue current medication. 3.Pneumonia with leukocytosis as by primary. 4.Hypomagnesemia. We will supplement. ROCAEL Voice ID: [id number] Report ID: [id number]
[2019-07-12] MEDS: TRAMADOL HCL 50 MG TAB PO PRN ×3 (00:11→21:29)
[2019-07-12] MEDS: IPRATROPIUM BROM 0.5MG/2.5ML NEB SCH ×4 (01:20→20:00)
[2019-07-12] MEDS: ALBUTEROL 2.5 MG/3 ML NEB SOL NEB SCH ×4 (01:20→20:00)
[2019-07-12] MEDS: HYDROCODONE/APAP 10/325 TAB PO PRN ×3 (07:13→18:53)
[2019-07-12] MEDS: FUROSEMIDE 20 MG TABLET PO SCH (09:05)
[2019-07-12] MEDS: ENOXAPARIN 30 MG/0.3 ML SQ SCH (09:05)
[2019-07-12] MEDS: CARVEDILOL 12.5 MG TAB PO SCH ×2 (09:06→21:29)
[2019-07-12] MEDS: DOCUSATE NA 100 MG CAP PO SCH ×2 (09:06→21:29)
[2019-07-12] MEDS: LISINOPRIL 20 MG TAB PO SCH (09:06)
[2019-07-12] MEDS: levoFLOXacin 500 MG TAB PO SCH (09:06)
[2019-07-12] MEDS: FOLIC ACID 1 MG TABLET PO SCH (09:06)
[2019-07-12] MEDS: ASPIRIN EC 81 MG TAB PO SCH (09:07)
[2019-07-12] MEDS: THIAMINE HCL 100 MG TABLET PO SCH (09:07)
[2019-07-12] MEDS: FAMOTIDINE 20 MG TAB PO SCH (09:07)
[2019-07-12] MEDS: Umeclidinium Brm/Vilanterol Tr [Anoro Ellipta 62.5-25 Mcg Inh] IH SCH (09:08)
--- NOTE | 2019-07-12 09:48 | P.PN ---
Subjective Date of Service: 07/11/19 PATIENT'S CLINICAL CONDITION HAS DETERIORATED. PATIENT IS TACHYCARDIC AND TACHYPNEIC. PATIENT HAS BEEN ON BIPAP. I REVIEWED THE CHEST X-RAYS FROM ADMISSION AND THERE IS SUBSTANTIAL WORSENING OF THE RIGHT UPPER LOBE PNEUMONIA. PATIENT COULD HAVE A POSTOBSTRUCTIVE PNEUMONIA PROCESS. WE WILL WAIT FOR RADIOLOGY REPORT. WILL NEED TO HOLD DISCHARGE AND MAKE SURE PNEUMONIA IS IMPROVING PRIOR TO DISCHARGE. MAY NEED TO ALSO MAKE SURE THIS IS NOT A POSTOBSTRUCTIVE PNEUMONIA CLINICALLY THESE ARE MUCH HARDER TO TREAT. Review of Systems 10-point ROS is otherwise unremarkable Physical Examination - Vital Signs Temperature: 97.8 F Blood Pressure: 112/63 Pulse: 92 Respirations: 20 Pulse Ox (%): 96 - Physical Exam General: Alert, In no apparent distress, Oriented x2 HEENT: Atraumatic, PERRLA, EOMI Neck: Supple, JVD not distended Respiratory: Diminished, Rhonchi/gurgles Cardiovascular: Other ( TACHYARRHYTHMIA), Systolic murmur Gastrointestinal: Normal bowel sounds, Soft and benign, Non-distended, No tenderness Musculoskeletal: No clubbing, No swelling, No tenderness Integumentary: No rashes Neurological: Normal speech, Normal tone, Sensation intact, Cranial nerves 3-12 intact, Normal affect, Abnormal strength Lymphatics: No axilla or inguinal lymphadenopathy - Studies Microbiology Data (last 24 hrs): 07/06/19 17:00 Blood - Blood Aerobic Blood Culture - Final No growth in 5 days. 07/06/19 17:00 Blood - Blood Anaerobic Blood Culture - Final No growth in 5 days. 07/06/19 16:40 Blood - Blood Aerobic Blood Culture - Final No growth in 5 days. 07/06/19 16:40 Blood - Blood Anaerobic Blood Culture - Final No growth in 5 days. Medications List Reviewed: Yes Assessment & Plan - Problems (Diagnosis) (1) Pneumonia of right upper lobe due to infectious organism Current Visit: Yes Status: Acute (2) Hypoxemia Current Visit: Yes Status: Acute (3) Encounter for counseling on use of bilevel positive airway pressure (BiPAP) therapy Current Visit: Yes Status: Acute (4) Tachycardia Current Visit: Yes Status: Acute - Plan PLAN: 1. CONTINUE WITH IV ANTIBIOTICS 2. AWAITING SPUTUM AND BLOOD CULTURE; PROCALCITONIN LEVEL 3. REPEAT CHEST X-RAY IN AM 4. WILL ORDER CT SCAN OF THE CHEST SINCE PNEUMONIA IS NOT IMPROVING 5. CONTINUE WITH NEBS NEEDED 6. O2 PER PROTOCOL 7. CONTINUE WITH GENTLE HYDRATION 8. REPEAT LABS INCLUDING CBC AND RENAL FUNCTION IN A.M. 9. OUTPT FOLLOW-UP WITH PULMONARY 10. GI AND DVT PROPHYLAXIS Discharge Plan: Home Plan to discharge in: Greater than 2 days - Advance Directives Does patient have a Living Will: Yes Does patient have a Durable POA for Healthcare: Yes - Code Status/Comfort Care Code Status Assessed: No Code Status: Full Code Physician Review: Patient Assessed, Agree with Above Assessment and Plan Critical Care: No Time Spent Managing PTS Care (In Minutes): 40
--- NOTE | 2019-07-12 10:14 | RAD REPORT ---
EXAM DESCRIPTION: Chest Single View CLINICAL HISTORY: Increased SOB/pneumonia TECHNIQUE: Single frontal view of the chest is submitted. COMPARISON: 07/10/2019 FINDINGS: Heart: The cardiothoracic silhouette is within normal limits. Lungs: Right upper lobe opacification appears more confluent along the periphery. Rounded area of opa cification centrally more pronounced on the current study measuring approximately 6 cm. Mediastinum: Thoracic aortic atherosclerosis. Possible small to moderate hiatal hernia. Pleura: Blunting of the costophrenic angles bilaterally. Slight fissural retraction on the right. Bones: Multilevel spondylosis. No acute fracture. Upper abdomen: Unremarkable IMPRESSION: Right upper lobe infiltrate appears more confluent along the periphery. Rounded area of opacification centrally measuring approximately 6 cm which appears more pronounced on the current nadiya dy. Follow-up is recommended in order to exclude underlying mass/malignancy. Possible small bilateral pleural effusions. Electronically signed by: Mina Mcdonald MD 07/11/2019 9:37 PM CDT Due to temporary technical issues with the PACS/Fluency reporting system, reports are being signed by the in house radiologist as a courtesy to ensure prompt reporting. The interpreting radiologist is f ully responsible for the content of the report.
--- NOTE | 2019-07-12 11:51 | RAD REPORT ---
EXAM DESCRIPTION: CT - Thorax Wo Con CLINICAL HISTORY: Chest pain Pneumonia COMPARISON: Chest Single View dated 07/11/2019 FINDINGS: Emphysematous changes are noted with a large area of consolidated lung in the right upper lobe with air bronchograms. This most likely represents bronchopneumonia, although follow-up imaging until complete clearance is recommended. Bilateral pleural effusions are present, slightly greater on the right. No pneumothorax. No axillary, mediastinal or hilar adenopathy. No concerning bony finding. Moderate hiatal hernia. All CT scans are performed using dose optimization technique as appropriate and may include automated exposure control or mA/KV adjustment according to patient size. IMPRESSION: Large area of bronchopneumonia suspected right upper lobe. An obstructing hilar mass is not seen, although assessment is limited by lack of IV contrast.Advise follow-up imaging until cleara nce.
[2019-07-12 12:43] LABS: Absolute Lymphocytes (CBC) 1.2 K/uL (0.7-4.9); Basophils % 0.3 % (0-1.3); Hematocrit 27.2 % (36.0-45.0); Lymphocytes % 9.1 % (15.3-44.8); MPV 7.7 fL (7.6-11.3); RBC Red Blood Cell Count 3.02 M/uL (3.86-4.86)
[2019-07-12 13:05] LABS: Albumin 1.5 g/dL (3.4-5.0); Bilirubin Total 0.3 mg/dL (0.2-1.0); Potassium 3.9 mmol/L (3.5-5.1); Protein, Total 5.1 g/dL (6.4-8.2)
--- NOTE | 2019-07-12 16:15 | P.PN ---
Subjective Date of Service: 07/12/19 Primary Care Provider: Dr. Wong; Cardiology-Dr. Ash Chief Complaint: Fatigue, cough, fever Subjective: Improving Patient seen and examined at bedside. No family at bedside. Chart reviewed and case discussed with nursing staff. Overnight, patient Review of Systems 10-point ROS is otherwise unremarkable Physical Examination - Vital Signs Temperature: 97.6 F Blood Pressure: 115/61 Pulse: 90 Respirations: 20 Pulse Ox (%): 96 - Physical Exam General: Alert, Oriented x3, Moderate distress HEENT: Atraumatic, PERRLA, EOMI Neck: Supple, JVD not distended Respiratory: Clear to auscultation bilaterally, Normal air movement Cardiovascular: Regular rate/rhythm, Normal S1 S2 Gastrointestinal: Normal bowel sounds, No tenderness Musculoskeletal: Tenderness Integumentary: No rashes Neurological: Normal speech, Normal tone, Normal affect - Studies Microbiology Data (last 24 hrs): 07/06/19 17:00 Blood - Blood Aerobic Blood Culture - Final No growth in 5 days. 07/06/19 17:00 Blood - Blood Anaerobic Blood Culture - Final No growth in 5 days. 07/06/19 16:40 Blood - Blood Aerobic Blood Culture - Final No growth in 5 days. 07/06/19 16:40 Blood - Blood Anaerobic Blood Culture - Final No growth in 5 days. Medications List Reviewed: Yes Assessment And Plan - Plan Impression: Septic shock secondary to right upper lobe pneumonia Acute renal injury suspect dehydration Elevated troponin likely cardiac stress related to sepsis History of hypertension Chronic vertebral fractures Anemia likely of chronic disease Plan: Septic shock secondary to right upper lobe pneumonia: Resolved -patient weaned off of Levophed. Blood pressure is holding steady at this time. -Switch to PO antibiotics-Levaquin -sputum and blood cultures negative to date -continue supportive care-provide oxygen as needed -Continue BP medications -CT scan with large area of bronchopneumonia in Right upper lobe Acute renal injury likely pre renal/ATN -nephrology consulted, recommendations appreciated Elevated troponin likely cardiac stress related to sepsis: -cardiology consulted, recommendations appreciated. No further cardiac interventions planned at this time. History of hypertension: -Continue blood pressure medication-lisinopril/Lasix. Chronic vertebral fractures: patient states she had another fall last week. She just mentioned this now; X-ray of the back ordered to evaluate for acute fracture. Anemia likely of chronic disease: Monitor hemoglobin closely. DVT prophylaxis: Lovenox GI prophylaxis: Protonix, home medication Diet: Heart healthy Disposition: Patient will benefit from SNF for further rehabilitation. SW consulted, accepted. Pending symptomatic improvement. Anticipate DC in the next 24-48 hrs Physician Review: Patient Assessed, Agree with Above Assessment and Plan Physician Review Additional Text: .
--- NOTE | 2019-07-12 16:17 | PN ---
Date of Progress Note: 07/12/2019 Subjective: The patient doing well. No event. No nausea. No vomiting. Physical Examination: Vital Signs: Blood pressure 112/63, pulse of 92. Chest: Clear to auscultation. Heart: S1, S2 regular. Abdomen: Soft, nontender. Extremities: No edema. Laboratory Data: WBC 15.7, H and H 10.3/30.7, platelets 290. Sodium 140, potassium 4.4, bicarb 22, BUN 23, creatinine 0.6, magnesium 1.9. Current Medications: The patient on its include Levaquin 500, aspirin, albuterol, Lovenox, carvedilo l 12.5 b.i.d., lisinopril 40, Lasix 20 daily, folic acid. Assessment And Plan: 1.Acute kidney injury secondary to toxic acute tubular necrosis, poor perfusion acute tubular necros is, recovered, resolved. 2.Hypomagnesemia, status post supplement. 3.Hypertension, controlled, optimal. Continue current medication. 4.Pneumonia. Continue current treatment. Follow up with the primary. ROCAEL Voice ID: [id number] Report ID: [id number]
--- NOTE | 2019-07-12 17:42 | RAD REPORT ---
EXAM DESCRIPTION: RAD - Thoracic Spine Ap/Lat - 07/12/2019 5:25 pm CLINICAL HISTORY: Worsening back pain CT chest July 12 COMPARISON: None. FINDINGS: AP & lateral views of the thoracic spine were obtained. T1-T10 bodies show normal height. Bones are osteopenic. No lytic, sclerotic or expansile destructive process. Patient has a large right upper lobe bronchopneumonia that is addressed in the CT study. No paraspinal masses are identified. No significant disc space narrowing. The T11-T12 bodies are addressed in the lumbar spine report. IMPRESSION: Osteopenic and degenerative changes involving T1-T10. T11-T12 findings are addressed in the lumbar spine report.
--- NOTE | 2019-07-12 17:44 | RAD REPORT ---
EXAM DESCRIPTION: RAD - Lumbar Spine 3 Views - 07/12/2019 5:25 pm CLINICAL HISTORY: Back pain, fall COMPARISON: None. FINDINGS: A three-view lumbar spine examination was performed. L2-L5 bodies are normal in height. Miah quinten are osteopenic. Prominent facet degenerative changes are present along with mild endplate spurrin g. No significant disc space narrowing seen. Approximately 50% wedge compression fracture deformity seen in the T12 body. No acute fracture lines confirmed on the CT chest study. T11 body shows approximately 15% height loss in the superior endplat e. Posterior wall height is preserved. Approximately 20% wedge compression of the L1 body is noted. P rominent anterior spurs noted at T12-L1. IMPRESSION: Approximately 50% wedge compression deformity of the T12 body with approximately 15% T11 and 20% L1 compression deformities. No associated lytic, blastic or expansile component. T12 and L1 are favored to be old. Age of the T11 compression is uncertain. Follow-up MR imaging could be performed when tolerable by the patient.
[2019-07-13] MEDS: HYDROCODONE/APAP 10/325 TAB PO PRN ×4 (01:50→19:34)
[2019-07-13] MEDS: ALBUTEROL 2.5 MG/3 ML NEB SOL NEB SCH ×4 (02:00→20:00)
[2019-07-13] MEDS: IPRATROPIUM BROM 0.5MG/2.5ML NEB SCH ×4 (02:00→20:00)
[2019-07-13] MEDS: CARVEDILOL 12.5 MG TAB PO SCH ×2 (08:30→20:46)
[2019-07-13] MEDS: levoFLOXacin 500 MG TAB PO SCH (08:30)
[2019-07-13] MEDS: FOLIC ACID 1 MG TABLET PO SCH (08:30)
[2019-07-13] MEDS: LISINOPRIL 20 MG TAB PO SCH (08:31)
[2019-07-13] MEDS: DOCUSATE NA 100 MG CAP PO SCH ×2 (08:31→20:45)
[2019-07-13] MEDS: FUROSEMIDE 20 MG TABLET PO SCH (08:31)
[2019-07-13] MEDS: THIAMINE HCL 100 MG TABLET PO SCH (08:32)
[2019-07-13] MEDS: FAMOTIDINE 20 MG TAB PO SCH (08:32)
[2019-07-13] MEDS: ASPIRIN EC 81 MG TAB PO SCH (09:00)
[2019-07-13] MEDS ORDERED: ENOXAPARIN 40 MG/0.4 ML SQ SCH (09:00)
--- NOTE | 2019-07-13 10:46 | P.PN ---
Subjective Date of Service: 07/13/19 Primary Care Provider: Dr. Wong; Cardiology-Dr. Ash Chief Complaint: Fatigue, cough, fever Subjective: New changes pt with Hx of CHF , amitted for Pneumonia, sepsis and Hypotension was on pressers Today pain is better controlled O2 sat >90% Bun slightly elevated, will cont to monitor , consider reducing lasix if cont to be elevated cleared for discharge from nephrology point of view and to follow in 2-3 wks with nephrology clinic Physical Examination - Vital Signs Temperature: 97.6 F Blood Pressure: 132/67 Pulse: 83 Respirations: 19 Pulse Ox (%): 97 - Physical Exam General: Oriented x3, Mild distress HEENT: Atraumatic Neck: Supple, Without JVD or thyroid abnormality Respiratory: Inspiratory wheezes, Rhonchi/gurgles Cardiovascular: No edema, Regular rate/rhythm, Normal S1 S2, No gallops, No rubs , No murmurs Gastrointestinal: Normal bowel sounds, Soft and benign Musculoskeletal: No swelling - Studies Medications List Reviewed: Yes Assessment And Plan - Current Problems (Diagnosis) (1) AMBER (acute kidney injury) Current Visit: Yes Status: Acute - Plan AMBER resolved Cr baseline ~1.0 Possibly due to ischemic ATN and dehydration Septic shock due to PNA Cont ABx Anemia GINGER completed IV iron HTN controlled prognosis guarded Physician Review: Patient Assessed, Agree with Above Assessment and Plan Physician Review Additional Text: .
[2019-07-13] MEDS: TRAMADOL HCL 50 MG TAB PO PRN ×2 (12:02→20:49)
[2019-07-13] MEDS: Umeclidinium Brm/Vilanterol Tr [Anoro Ellipta 62.5-25 Mcg Inh] IH SCH (12:03)
--- NOTE | 2019-07-13 12:40 | P.PN ---
Subjective Date of Service: 07/13/19 Primary Care Provider: Dr. Wong; Cardiology-Dr. Ash Chief Complaint: Fatigue, cough, fever Subjective: No C/O voiced, Improving Patient seen and examined at bedside. No family at bedside. Chart reviewed and case discussed with nursing staff. Overnight, patient Review of Systems 10-point ROS is otherwise unremarkable Physical Examination - Vital Signs Temperature: 97.8 F Blood Pressure: 118/60 Pulse: 86 Respirations: 19 Pulse Ox (%): 96 - Physical Exam General: Alert, In no apparent distress, Other (Elderly, frail) HEENT: Atraumatic, PERRLA, EOMI Neck: Supple, JVD not distended Respiratory: Clear to auscultation bilaterally, Normal air movement Cardiovascular: Regular rate/rhythm, Normal S1 S2 Gastrointestinal: Normal bowel sounds, No tenderness Musculoskeletal: No tenderness Integumentary: No rashes Neurological: Normal speech, Normal tone, Normal affect Lymphatics: No axilla or inguinal lymphadenopathy - Studies Medications List Reviewed: Yes Assessment And Plan - Plan Impression: Septic shock secondary to right upper lobe pneumonia Acute renal injury suspect dehydration Elevated troponin likely cardiac stress related to sepsis History of hypertension Chronic vertebral fractures Anemia likely of chronic disease Plan: Septic shock secondary to right upper lobe pneumonia: Resolved -patient weaned off of Levophed. Blood pressure is holding steady at this time. -Switch to PO antibiotics-Levaquin -sputum and blood cultures negative to date -continue supportive care-provide oxygen as needed -Continue BP medications -CT scan with large area of bronchopneumonia in Right upper lobe Acute renal injury likely pre renal/ATN -nephrology consulted, recommendations appreciated Elevated troponin likely cardiac stress related to sepsis: -cardiology consulted, recommendations appreciated. No further cardiac interventions planned at this time. History of hypertension: -Continue blood pressure medication-lisinopril/Lasix. Chronic vertebral fractures: patient states she had another fall last week. She just mentioned this now; X-ray of the back ordered to evaluate for acute fracture. Anemia likely of chronic disease: Monitor hemoglobin closely. DVT prophylaxis: Lovenox GI prophylaxis: Protonix, home medication Diet: Heart healthy Disposition: Patient will benefit from SNF for further rehabilitation. SW consulted, accepted. Pending symptomatic improvement. Anticipate DC today Physician Review: Patient Assessed, Agree with Above Assessment and Plan Physician Review Additional Text: .
[2019-07-13 14:20] VITALS: O2SAT 96
[2019-07-13 16:35] VITALS: TEMP 97.9
[2019-07-13 20:23] VITALS: BP 121/65
[2019-07-13] MEDS ORDERED: ENSURE ENLIVE 237 ML CAN PO SCH (21:00)
[2019-07-14] MEDS ORDERED: LIDOCAINE 4% PATCH TOP SCH (09:00)
== END 2019-07-13 21:35 | DRG 193 ==
LOC: ER 15:42 → ERHOLD 19:37 → 3RD-ICU 07-07 14:00 → 4TH 07-09 20:00
PROVIDERS: ADMIT Family Medicine; ATTEND Family Medicine
DX: J18.9 Pneumonia, unspecified organism (principal); R65.21 Severe sepsis with septic shock; N17.9 Acute kidney failure, unspecified; M84.48XA Pathological fracture, other site, initial encounter for fracture; I95.9 Hypotension, unspecified; D63.8 Anemia in other chronic diseases classified elsewhere; E86.0 Dehydration; I10 Essential (primary) hypertension
CPT/HCPCS: 36415; 51702; 71045; 71250; 72070; 72100; 76770; 80048; 80053; 80061; 80076; 81003; 81015; 82550; 82553; 82570; 82607; 82728; 83540; 83605; 83735; 83880; 84145; 84156; 84439; 84443; 84466; 84484; 85025; 85610; 87040; 87070; 87081; 87205; 87804; 93005; 93306; 94640; 94660; 94760; 96361; 96365; 96368; 96375; 97110; 97163; 97530; 99285; J0456; J0692; J0696; J1170; J1650; J1720; J1940; J2270; J3475; J7030; J7040; J7060; J7799

== ENCOUNTER 2019-12-31 14:30 | Observation (INO) | payer OTHER ==
[2019-12-31] MEDS ORDERED: NA CHLORIDE 0.9% 250 ML ONE (14:56)
[2019-12-31] MEDS ORDERED: AZITHROMYCIN 500 MG INJ IVPB ONE (14:56)
[2019-12-31] MEDS ORDERED: CEFTRIAXONE/SWI 1gm 1 GM/10 ML SYR ONE (14:56)
[2019-12-31 16:52] LABS: Absolute Lymphocytes (CBC) 0.6 K/uL (0.7-4.9); Basophils % 0.6 % (0-1.3); Hematocrit 27.8 % (36.0-45.0); MPV 7.7 fL (7.6-11.3); RBC Red Blood Cell Count 3.43 M/uL (3.86-4.86)
[2019-12-31 17:04] LABS: Protime INR 0.97
--- NOTE | 2019-12-31 17:08 | RAD REPORT ---
EXAM DESCRIPTION: RAD - Chest Single View - 12/31/2019 4:53 pm CLINICAL HISTORY: DYSPNEA Chest pain. COMPARISON: Chest Pa And Lat (2 Views) dated 11/06/2019; Chest Pa And Lat (2 Views) dated 09/10/2019; C hest Single View dated 07/11/2019; Chest Single View dated 07/10/2019 FINDINGS: Portable technique limits examination quality. Bilateral interstitial lung opacities are present, greatest in the upper lobes, likely representing i nterstitial pneumonia. The heart is normal in size. Small hiatal hernia.
[2019-12-31 17:17] LABS: ALT/SGPT 12 U/L (12-78); AST/SGOT 12 U/L (15-37); Albumin 3.1 g/dL (3.4-5.0); Alkaline Phosphatase 56 U/L (45-117); BUN Blood Urea Nitrogen 25 mg/dL (7-18); Bicarbonate 34 mmol/L (21-32); Bilirubin Direct 0.1 mg/dL (0-0.2); Bilirubin Total 0.5 mg/dL (0.2-1.0); CKMB Creatine Kinase MB < 1.0 ng/mL (0.3-3.6); Creatine Phosphokinase 30 U/L (26-192); Glucose Level 132 mg/dL (74-106); Lipase 78 U/L (73-393); Magnesium 2.1 mg/dL (1.8-2.4); NT PRO-BNP 1343 pg/mL (<450); Potassium 4.6 mmol/L (3.5-5.1); Protein, Total 7.5 g/dL (6.4-8.2); Sodium Level 135 mmol/L (136-145); Troponin (Emerg Dept Use Only) < 0.02 ng/mL (0.0-0.045)
[2019-12-31 17:22] LABS: Platelet Estimate INCR; Urine White Blood Cell Casts OK
[2019-12-31 17:23] LABS: Anisocytosis 1+; Blood Morphology Comment NOTED (NOT SEEN); Poikilocytosis 2+
--- NOTE | 2019-12-31 17:28 | ER ---
Nurse's Notes [facility] Name: Allison Vickers Age: 84 yrs Sex: Female : 1935 Arrival Date: 12/31/2019 Time: 14:30 Bed 25 Private MD: Diagnosis: Severe sepsis without septic shock;Pneumonia due to other specified infectious organisms;Hypoxemia Presentation: 12/30 14:30 Chief complaint: EMS states: pt has hx of COPD, c/o increasing SOB on exertion, fever, iw productive cough since Tuesday, was 88% on 3L NC, Sinus Tach at 116 bpm, up to 93% after A\T\A neb treatment. Coronavirus screen: Surgical mask placed on patient. Patient moved to private room, placed in contact and droplet isolation with eye protection until further assessment. Patient reports a cough. Patient reports shortness of breath or difficulty breathing. Patient reports a measured and/or subjective temperature greater than 100.4F. Patient denies travel on a cruise ship or to a country the [facility] currently lists as an affected area. Patient denies contact with known and/or suspected case of COVID-19. Ebola Screen: Patient negative for fever greater than or equal to 101.5 degrees Fahrenheit, and additional compatible Ebola Virus Disease symptoms Patient denies exposure to infectious person. Patient denies travel to an Ebola-affected area in the 21 days before illness onset. No symptoms or risks identified at this time. Initial Sepsis Screen: Does the patient meet any 2 criteria? HR > 90 bpm. Does the patient have a suspected source of infection? Yes: Productive cough/pneumonia. Risk Assessment: Do you want to hurt yourself or someone else? Patient reports no desire to harm self or others. 14:30 Method Of Arrival: EMS: [facility] iw 14:30 Acuity: JESUS 3 iw 16:25 Onset of symptoms was December 29, 2019. vc Triage Assessment: 16:19 General: Appears in no apparent distress. uncomfortable, Behavior is calm, cooperative, vc appropriate for age. Respiratory: Reports shortness of breath at rest on exertion cough that is productive, labored breathing Onset: The symptoms/episode began/occurred yesterday, the patient has moderate shortness of breath. Historical: - Allergies: 14:35 Clindamycin; iw 14:35 Codeine; iw - Home Meds: 14:35 albuterol sulfate 2.5 mg /3 mL (0.083 %) Inhl nebu 3 mL 4 times per day [Active]; iw atorvastatin 40 mg Oral tab 1 tab once daily [Active]; carvedilol 12.5 mg Oral tab 1 tab 2 times per day [Active]; furosemide 20 mg Oral tab 1 tab once daily [Active]; gabapentin 300 mg Oral cap 1 cap 3 times per day [Active]; hydrocodone-acetaminophen 10-325 mg Oral tab 1 tab every 6 hours [Active]; lisinopril 40 mg Oral tab 1 tab once daily [Active]; loratadine 10 mg Oral TbDL 1 tab once daily [Active]; ondansetron HCl 4 mg Oral tab 1 tabs every 8 hours [Active]; pantoprazole 40 mg Oral TbEC 1 tab once daily [Active]; Bryant 500 mg Oral tab as needed [Active]; potassium chloride 20 mEq Oral TbER 1 tab once daily [Active]; ProAir HFA 90 mcg/actuation inhalation HFAA 2 puffs every 6 hours [Active]; Vitamin D Oral [Active]; - PMHx: 14:35 Arthritis; carpal tunnel syndrome; chronic bronchitis; diverticulosis; hiatal hernia; iw Hypertension; IRON DEFICIENCY ANEMIA; ADD/ADHD; - PSHx: 14:35 Appendectomy; Tubal ligation; Carpal Tunnel Repair; Back; iw - Immunization history:: Adult Immunizations up to date. - Social history:: Patient/guardian denies using alcohol, street drugs, The patient lives with family, Smoking status: Patient denies any tobacco usage or history of. - Family history:: not pertinent. Screenin:14 Abuse screen: Denies threats or abuse. Nutritional screening: No deficits noted. vc Tuberculosis screening: No symptoms or risk factors identified. Fall Risk IV access (20 points). Ambulatory Aid- Crutches/Cane/Walker (15 pts). Gait- Weak (10 pts.). Mental Status- Oriented to own ability (0 pts). Total Francisco Fall Scale indicates High Risk Score (45 or more points). Assessment: 16:18 Pain: Denies pain. Cardiovascular: Rhythm is sinus rhythm with PACs. Respiratory: vc Airway is patent Respiratory effort is even, unlabored, Respiratory pattern is regular, symmetrical, Breath sounds are coarse Breath sounds with crackles. 16:25 General: Appears in no apparent distress. uncomfortable, ill, Behavior is calm, vc cooperative, appropriate for age. Neuro: Level of Consciousness is awake, alert, obeys commands, Oriented to person, place, time, situation, Appropriate for age. GI: No signs and/or symptoms were reported involving the gastrointestinal system. : No signs and/or symptoms were reported regarding the genitourinary system. 17:30 Reassessment: Patient appears in no apparent distress at this time. Patient and/or ls4 family updated on plan of care and expected duration. Pain level reassessed. Patient is alert, oriented x 3, equal unlabored respirations, skin warm/dry/pink. Patient states feeling better. 18:15 Reassessment: Patient appears in no apparent distress at this time. Patient and/or ls4 family updated on plan of care and expected duration. Pain level reassessed. Patient is alert, oriented x 3, equal unlabored respirations, skin warm/dry/pink. Pt assisted to commode. pt given water and oral swabs. 19:30 Reassessment: Patient appears in no apparent distress at this time. Patient and/or ls4 family updated on plan of care and expected duration. Pain level reassessed. Patient is alert, oriented x 3, equal unlabored respirations, skin warm/dry/pink. Patient states symptoms have improved. 20:15 Reassessment: Patient appears in no apparent distress at this time. Patient and/or ls4 family updated on plan of care and expected duration. Pain level reassessed. Patient is alert, oriented x 3, equal unlabored respirations, skin warm/dry/pink. Vital Signs: 16:40 BP 139 / 78; Pulse 75; Resp 14; Pulse Ox 100% on 3 lpm NC; Pain 0/10; ls4 17:30 BP 147 / 89; Pulse 75; Resp 19; Temp 97.9; Pulse Ox 100% on 2 lpm NC; Pain 0/10; ls4 18:14 BP 125 / 58; Pulse 71; Resp 16; Temp 98.4(O); Pulse Ox 100% on 2 lpm NC; Pain 0/10; ls4 19:15 BP 133 / 66; Pulse 69; Resp 16; Temp 98.0(O); Pulse Ox 100% on 2 lpm NC; Pain 0/10; ls4 20:15 BP 131 / 69; Pulse 71; Resp 17; Temp 98.0; Pulse Ox 99% on R/A; Pain 0/10; ls4 ED Course: 14:30 Patient arrived in ED. iw 14:32 Zoe Leiva, RN is Primary Nurse. vc 14:33 Triage completed. iw 14:37 Daniela Anders MD is Attending Physician. ma2 16:23 Arm band placed on. ls4 16:25 No provider procedures requiring assistance completed. ls4 16:53 XRAY Chest (1 view) In Process Unspecified. EDMS 17:27 Candi Curry MD is Hospitalizing Provider. ma2 Administered Medications: 16:40 Drug: Rocephin 1 grams Route: IV; Rate: calculated rate; Site: left forearm; ls4 16:50 Follow up: IV Status: Completed infusion; IV Intake: 10ml ls4 16:50 Drug: AZITHromycin 500 mg Route: IVPB; Infused Over: 1 hrs; Site: left forearm; ls4 17:50 Follow up: Response: No adverse reaction; IV Status: Completed infusion; IV Intake: ls4 250ml Intake: 16:50 IV: 10ml; Total: 10ml. ls4 17:50 IV: 250ml; Total: 260ml. ls4 Outcome: 17:27 Decision to Hospitalize by Provider. ma2 19:41 Admitted to Tele accompanied by tech, via stretcher, room 412, with oxygen, on monitor, ls4 with chart, Report called to Jennifer 20:24 Patient left the ED. sg 20:27 Condition: stable ls4 20:27 Discharge instructions given to patient, family, CALLED ANJELICA TO LET HIM KNOW OF ADMISSION AND PT CONDITION PER PATIENT REQUEST Instructed on the need for admit, Demonstrated understanding of instructions. Signatures: Dispatcher [employer] EDMS Santosh Ojeda RN RN sg Montse Mendez RN RN Daniela Anders MD MD vt2 Daphnye Wolfe RN RN 4 Zoe Leiva RN RN vc Corrections: (The following items were deleted from the chart) 19:40 19:39 Response: No adverse reaction; IV Status: Completed infusion; IV Intake: 250ml [id number]
--- NOTE | 2019-12-31 17:28 | EDPHYS ---
Physician Documentation [facility] Name: Allison Vickers Age: 84 yrs Sex: Female : 1935 Arrival Date: 12/31/2019 Time: 14:30 Bed 25 Private MD: ED Physician Daniela Anders HPI: 12/30 14:39 This 84 yrs old Female presents to ER via EMS with complaints of Breathing ma2 Difficulty. 14:39 The patient has shortness of breath at rest. Onset: The symptoms/episode began/occurred ma2 suddenly, gradually, 1 day(s) ago. Associated signs and symptoms: Pertinent positives: productive cough, Pertinent negatives: dizziness, nausea, visual changes. Severity of symptoms: At their worst the symptoms were moderate in the emergency department the symptoms are unchanged. The patient has experienced similar episodes in the past. 14:39 on home o2, has new cough and sob, when ems arrived pulse ws 110 and spo2 88 on 2 l nc, ma2 givne nebs and steroids iv by ems. Historical: - Allergies: 14:35 Clindamycin; iw 14:35 Codeine; iw - Home Meds: 14:35 albuterol sulfate 2.5 mg /3 mL (0.083 %) Inhl nebu 3 mL 4 times per day [Active]; iw atorvastatin 40 mg Oral tab 1 tab once daily [Active]; carvedilol 12.5 mg Oral tab 1 tab 2 times per day [Active]; furosemide 20 mg Oral tab 1 tab once daily [Active]; gabapentin 300 mg Oral cap 1 cap 3 times per day [Active]; hydrocodone-acetaminophen 10-325 mg Oral tab 1 tab every 6 hours [Active]; lisinopril 40 mg Oral tab 1 tab once daily [Active]; loratadine 10 mg Oral TbDL 1 tab once daily [Active]; ondansetron HCl 4 mg Oral tab 1 tabs every 8 hours [Active]; pantoprazole 40 mg Oral TbEC 1 tab once daily [Active]; Bryant 500 mg Oral tab as needed [Active]; potassium chloride 20 mEq Oral TbER 1 tab once daily [Active]; ProAir HFA 90 mcg/actuation inhalation HFAA 2 puffs every 6 hours [Active]; Vitamin D Oral [Active]; - PMHx: 14:35 Arthritis; carpal tunnel syndrome; chronic bronchitis; diverticulosis; hiatal hernia; iw Hypertension; IRON DEFICIENCY ANEMIA; ADD/ADHD; - PSHx: 14:35 Appendectomy; Tubal ligation; Carpal Tunnel Repair; Back; iw - Immunization history:: Adult Immunizations up to date. - Social history:: Patient/guardian denies using alcohol, street drugs, The patient lives with family, Smoking status: Patient denies any tobacco usage or history of. - Family history:: not pertinent. ROS: 14:39 Constitutional: Negative for fever, chills, and weight loss. ma2 14:39 All other systems are negative. Exam: 14:39 Constitutional: This is a well developed, well nourished patient who is awake, alert, ma2 and in no acute distress. Head/Face: Normocephalic, atraumatic. Eyes: Pupils equal round and reactive to light, extra-ocular motions intact. Lids and lashes normal. Conjunctiva and sclera are non-icteric and not injected. Cornea within normal limits. Periorbital areas with no swelling, redness, or edema. ENT: Nares patent. No nasal discharge, no septal abnormalities noted. Tympanic membranes are normal and external auditory canals are clear. Oropharynx with no redness, swelling, or masses, exudates, or evidence of obstruction, uvula midline. Mucous membranes moist. Neck: Trachea midline, no thyromegaly or masses palpated, and no cervical lymphadenopathy. Supple, full range of motion without nuchal rigidity, or vertebral point tenderness. No Meningismus. Chest/axilla: Normal chest wall appearance and motion. Nontender with no deformity. No lesions are appreciated. Cardiovascular: Regular rate and rhythm with a normal S1 and S2. No gallops, murmurs, or rubs. Normal PMI, no JVD. No pulse deficits. Abdomen/GI: Soft, non-tender, with normal bowel sounds. No distension or tympany. No guarding or rebound. No evidence of tenderness throughout. MS/ Extremity: Pulses equal, no cyanosis. Neurovascular intact. Full, normal range of motion. Neuro: Awake and alert, GCS 15, oriented to person, place, time, and situation. Cranial nerves II-XII grossly intact. Motor strength 5/5 in all extremities. Sensory grossly intact. Cerebellar exam normal. Normal gait. 14:39 Respiratory: moderate respiratory distress is noted, Respirations: labored breathing, Breath sounds: rales, that are moderate, are heard in the right upper lobe, right middle lobe and right posterior middle lobe, Respiratory rate: 20 Vital Signs: 16:40 BP 139 / 78; Pulse 75; Resp 14; Pulse Ox 100% on 3 lpm NC; Pain 0/10; ls4 17:30 BP 147 / 89; Pulse 75; Resp 19; Temp 97.9; Pulse Ox 100% on 2 lpm NC; Pain 0/10; ls4 18:14 BP 125 / 58; Pulse 71; Resp 16; Temp 98.4(O); Pulse Ox 100% on 2 lpm NC; Pain 0/10; ls4 19:15 BP 133 / 66; Pulse 69; Resp 16; Temp 98.0(O); Pulse Ox 100% on 2 lpm NC; Pain 0/10; ls4 20:15 BP 131 / 69; Pulse 71; Resp 17; Temp 98.0; Pulse Ox 99% on R/A; Pain 0/10; ls4 MDM: 14:37 Patient medically screened. ma2 14:39 Differential diagnosis: Anemia asthma, Bronchitis pneumonia, reactive airway disease, ma2 Sepsis. Antibiotic administration: Data reviewed: vital signs, nurses notes. Counseling: I had a detailed discussion with the patient and/or guardian regarding: the historical points, exam findings, and any diagnostic results supporting the discharge/admit diagnosis, the presence of at least one elevated blood pressure reading (>120/80) during this emergency department visit. 17:25 ED course: I attempted to call her pcp at his cell phone no answer, . 12/30 14:42 Order name: COVID-19 12/30 14:42 Order name: Flu; Complete Time: 16:57 12/30 14:42 Order name: Blood Culture Adult (2) 12/30 14:42 Order name: BMP; Complete Time: 17:23 12/30 14:42 Order name: CBC with Diff; Complete Time: 17:24 12/30 14:42 Order name: Ckmb; Complete Time: 17:23 12/30 14:42 Order name: CPK; Complete Time: 17:23 12/30 14:42 Order name: Hepatic Function; Complete Time: 17:23 ma2 12/30 14:42 Order name: Lipase; Complete Time: 17:23 ma2 12/30 14:42 Order name: Magnesium; Complete Time: 17:23 ma2 12/30 14:42 Order name: NT PRO-BNP; Complete Time: 17:23 ma2 12/30 14:42 Order name: PT-INR; Complete Time: 17:23 ma2 12/30 14:42 Order name: Ptt, Activated; Complete Time: 17:23 ma2 12/30 14:42 Order name: Troponin (emerg Dept Use Only); Complete Time: 17:23 ma2 12/30 14:42 Order name: EKG; Complete Time: 14:44 ma2 12/30 14:42 Order name: Cardiac monitoring; Complete Time: 16:13 ma2 12/30 14:42 Order name: EKG - Nurse/Tech; Complete Time: 16:14 ma2 12/30 14:42 Order name: IV Saline Lock; Complete Time: 16:14 ma2 12/30 14:42 Order name: Labs collected and sent; Complete Time: 16:14 ma2 12/30 14:42 Order name: O2 Per Protocol; Complete Time: 16:14 ma2 12/30 14:43 Order name: O2 Sat Monitoring; Complete Time: 16:14 ma2 12/30 16:24 Order name: XRAY Chest (1 view); Complete Time: 17:23 4 12/30 17:02 Order name: CBC Smear Scan; Complete Time: 17:25 EDMS 12/30 17:53 Order name: CONS Pharmacy Consult EDMS 12/30 17:53 Order name: CBC with Automated Diff EDMS 12/30 17:53 Order name: CBC with Automated Diff EDMS 12/30 17:53 Order name: Comprehensive Metabolic Panel EDMS 12/30 17:53 Order name: Comprehensive Metabolic Panel EDMS Administered Medications: 16:40 Drug: Rocephin 1 grams Route: IV; Rate: calculated rate; Site: left forearm; ls4 16:50 Follow up: IV Status: Completed infusion; IV Intake: 10ml ls4 16:50 Drug: AZITHromycin 500 mg Route: IVPB; Infused Over: 1 hrs; Site: left forearm; ls4 17:50 Follow up: Response: No adverse reaction; IV Status: Completed infusion; IV Intake: ls4 250ml Disposition: 12/31/19 17:27 Hospitalization ordered by Candi Curry for Inpatient Admission. Preliminary diagnosis are Severe sepsis without septic shock, Pneumonia due to other specified infectious organisms, Hypoxemia. - Bed requested for Telemetry/MedSurg (Inpatient). - Status is Inpatient Admission. sg - Condition is Stable. - Problem is new. - Symptoms are unchanged. Signatures: Dispatcher [employer] EDMS Nahomy Younger RN RN Santosh Ojeda RN RN Montse Mendez RN RN Daniela Anders MD MD [facility] Daphney Wolfe RN RN ls4 Zoe Leiva RN RN vc Corrections: (The following items were deleted from the chart) 18:15 17:27 Hospitalization Ordered by Candi Curry MD for Inpatient Admission. Preliminary diagnosis is Severe sepsis without septic shock; Pneumonia due to other specified infectious organisms; Hypoxemia. Bed requested for Telemetry/MedSurg (Inpatient). Status is Inpatient Admission. Condition is Stable. Problem is new. Symptoms are unchanged. [facility] 20:24 18:15 12/31/2019 17:27 Hospitalization Ordered by Candi Curry MD for Inpatient sg Admission. Preliminary diagnosis is Severe sepsis without septic shock; Pneumonia due to other specified infectious organisms; Hypoxemia. Bed requested for Telemetry/MedSurg (Inpatient). Status is Inpatient Admission. Condition is Stable. Problem is new. Symptoms are unchanged. dw
[2019-12-31] MEDS ORDERED: MORPHINE 2 MG/ML SYR IV PRN (17:51)
[2019-12-31] MEDS ORDERED: ACETAMINOPHEN 500 MG TAB PO PRN (17:51)
[2019-12-31] MEDS ORDERED: ONDANSETRON 4 MG/2 ML VIAL IV PRN (17:51)
--- NOTE | 2019-12-31 17:59 | P.HP ---
Patient History Date of Service: 12/31/19 Reason for admission: Shortness of breath History of Present Illness: Ms Vickers is 84-year-old female with a history of hypertension, COPD who presented to the hospital with complaints of shortness of breath. Symptoms started suddenly about 2 ruel ago and has rapidly progressed. Patient is on home oxygen and has chronic productive cough with color change of sputum. She had fever at home, as high as 101F. She has been extremely fatigued and with myalgia. Upon presentation, her heart rate was 110 and SpO2 was 88% on 2 L nasal cannula. Allergies clindamycin Allergy (Verified 07/07/19 15:27) unknown reaction codeine Allergy (Verified 07/07/19 15:27) unknown reaction Home Medications: Albuterol Sulfate [Proair Respiclick] 2 inh IH Q6H PRN 07/07/19 Albuterol Sulfate [Ventolin Hfa] 2 inh IH Q6H PRN 07/07/19 Furosemide 20 mg PO DAILY 07/07/19 Gabapentin 300 mg PO TID 07/07/19 Hydrocodone Bit/Acetaminophen [Hydrocodon-Acetaminophn 10-325] 1 each PO Q6H 02/18 Loratadine 10 mg PO DAILY 07/07/19 Pantoprazole [Protonix Tab*] 40 mg PO DAILY 07/07/19 Potassium Chloride [Klor-Con] 20 meq PO DAILY 07/07/19 Umeclidinium Brm/Vilanterol Tr [Anoro Ellipta 62.5-25 Mcg INH] 1 each IH DAILY 07/07/19 carvediloL [Carvedilol] 12.5 mg PO BID 07/07/19 l Gasseri/B Bifidum/B Longum [[facility] Capsule] 1 each PO DAILY PRN 07/07/19 lisinopriL [Lisinopril] 40 mg PO DAILY 07/07/19 predniSONE [Prednisone*] 20 mg PO BID PRN 07/07/19 Benzonatate [Tessalon Perle*] 100 mg PO TID PRN #15 cap 07/11/19 Docusate [Colace Cap*] 100 mg PO BID cap 07/11/19 levoFLOXacin [Levaquin*] 500 mg PO DAILY #9 tab 07/11/19 Lidocaine 4% Patch [Lidoderm 5% Patch] 1 patch TD DAILY #30 patch 07/13/19 traMADol HCL [Ultram*] 50 mg PO Q6H PRN #20 tab 07/13/19 - Past Medical/Surgical History Diabetic: No -: Hypertension -: Chronic vertebral fractures -: Former smoker -: hiatal hernia -: divertulosis -: anemia -: arthritis -: carpal tunnel -: copd -: Back surgery -: Appendectomy -: carpal tunnel sx -: tubal ligation Psychosocial/ Personal History: Patient is - Family History Father -: Hypertension, Stroke Mother -: Hypertension, Stroke Brother -: Lung disease Sister -: Heart disease - Social History Alcohol use: No CD- Drugs: No Caffeine use: Yes Review of Systems General: Chills Eyes: Unremarkable ENT: Unremarkable Respiratory: Cough, Shortness of Breath, Sputum Cardiovascular: As per HPI, Unremarkable Gastrointestinal: As per HPI Genitourinary: As per HPI Musculoskeletal: As per HPI Neurological: As per HPI Physical Examination - Vital Signs Blood Pressure: 139/78 Pulse: 75 Respirations: 14 - Physical Exam General: Alert, In no apparent distress HEENT: Atraumatic, PERRLA, Mucous membr. moist/pink, EOMI, Sclerae nonicteric Neck: Supple, 2+ carotid pulse no bruit, No LAD, Without JVD or thyroid abnormality Respiratory: Diminished, Crackles/rales, Expiratory wheezes Cardiovascular: Normal S1 S2, Irregular heart rate/rhythm Gastrointestinal: Normal bowel sounds, No tenderness Musculoskeletal: No tenderness Integumentary: No rashes Neurological: Normal gait, Normal speech, Normal tone, Normal affect Lymphatics: No axilla or inguinal lymphadenopathy - Studies Laboratory Data (last 24 hrs) 12/31/19 16:37: PT 11.4, INR 0.97, APTT 28.0 12/31/19 16:37: WBC 15.8 H, Hgb 8.6 L, Hct 27.8 L, Plt Count 419 H 12/31/19 16:37: Sodium 135 L, Potassium 4.6, BUN 25 H, Creatinine 0.90, Glucose 132 H, Magnesium 2.1, Total Bilirubin 0.5, AST 12 L, ALT 12, Alkaline Phosphatase 56, Lipase 78 Microbiology Data (last 24 hrs): 12/31/19 14:39 Nasopharnyx Influenza Type A Antigen Screen - Final 12/31/19 14:39 Nasopharnyx Influenza Type B Antigen Screen - Final Imagings Data: Bilateral interstitial lung opacities are present, greatest in the upper lobes, likely representing interstitial pneumonia. The heart is normal in size. Small hiatal hernia. Assessment and Plan - Plan Ms. Vickers is 84 year old female presented with shortness of breath. # sepsis present on admission secondary to community-acquired pneumonia- SIRS criteria met. Lactic acid and procalcitonin pending. -blood pressure is within normal limits. Maintain MAP greater than 65 -panculture. Influenza negative. -IV antibiotics. # acute on chronic respiratory failure-COPD exacerbation. -rule out COVID19 infection; Maintain droplet isolation pending results. -will minimize use of steriod pending COVID19 ruled out -hold aerosolized breathing treatments; continue supplemental oxygen and pulmonary toileting -probable chronic respiratory acidosis given compensatory alkalosis -Consult Dr. Curran, pt's primary dressage instructor. #Chronic normocytic anemia-hemoglobin less than baseline. Patient denies any bleeding. -check iron studies & FOBT. -trend H and H and transfuse if hemoglobin less than 7 # history of hypertension-hold anti hypertensives due to acute infection. # thrombocythemia-reactive # hyponatremia-mild hypovolemia. IV hydration. # hyperglycemia-rule out diabetes with hemoglobin A1c. -probably related to steriod use. DVT ppx- lovenox. Patient is full code. - Advance Directives Does patient have a Living Will: Yes Does patient have a Durable POA for Healthcare: Yes
[2019-12-31] MEDS: NA CHLORIDE 0.9% 1,000 ML IV SCH (19:22)
[2019-12-31 20:30] VITALS: O2SAT 100
[2019-12-31] MEDS: DOCUSATE NA 100 MG CAP PO SCH (21:00)
[2019-12-31 22:16] VITALS: BMI 18.0
[2020-01-01 04:28] LABS: Absolute Lymphocytes (CBC) 0.7 K/uL (0.7-4.9); Basophils % 0.3 % (0-1.3); Hematocrit 23.2 % (36.0-45.0); Lymphocytes % 6.1 % (15.3-44.8); MPV 8.1 fL (7.6-11.3); RBC Red Blood Cell Count 2.87 M/uL (3.86-4.86)
[2020-01-01 04:37] LABS: Albumin 2.4 g/dL (3.4-5.0); Bilirubin Total 0.1 mg/dL (0.2-1.0); Potassium 4.5 mmol/L (3.5-5.1); Protein, Total 6.1 g/dL (6.4-8.2)
--- NOTE | 2020-01-01 05:25 | EKG ---
Test Date: 2019-12-31 Test Time: 15:05:37 Timber Incisor Operator: KRISTAL MEASUREMENT RESULTS: Intervals: Rate: 73 ID: [id number] QRSD: 72 QT: 354 QTc: 389 Edison: P: 61 ID: [id number] QRS: 57 T: 48 INTERPRETIVE STATEMENTS: Sinus rhythm with premature atrial complexes with aberrant conduction Otherwise normal ECG Compared to ECG 07/06/2019 16:41:22 Atrial premature complex(es) now present Aberrant conduction of supraventricular beat(s) now present Electronically Signed On 01-01-20 05:23:44 CDT by Randall Brown
[2020-01-01] MEDS: NA CHLORIDE 0.9% 1,000 ML IV SCH (06:25)
[2020-01-01] MEDS: DOCUSATE NA 100 MG CAP PO SCH (07:56)
[2020-01-01] MEDS ORDERED: LORATADINE 10 MG TAB PO SCH (09:00)
[2020-01-01] MEDS ORDERED: CEFTRIAXONE/SWI 1gm 1 GM/10 ML SYR IVP SCH (09:00)
[2020-01-01] MEDS ORDERED: AZITHROMYCIN IV 500 MG in NA CHLORIDE 0.9% 250 ML IVPB SCH (09:00)
[2020-01-01] MEDS ORDERED: HYDROCODONE/APAP 10/325 TAB PO SCH (10:00)
--- NOTE | 2020-01-01 10:28 | EKG ---
Test Date: 2019-12-31 Test Time: 15:06:06 Oven Stripper: KRISTAL MEASUREMENT RESULTS: Intervals: Rate: 77 NC: 124 QRSD: 68 QT: 358 QTc: 405 Taylor: P: 79 NC: 124 QRS: 56 T: 59 INTERPRETIVE STATEMENTS: Sinus rhythm with frequent premature ventricular complexes Otherwise normal ECG Compared to ECG 12/31/2019 15:05:37 Ventricular premature complex(es) now present Atrial premature complex(es) no longer present Aberrant conduction of supraventricular beat(s) no longer present Electronically Signed On 01-01-20 10:27:50 CDT by Randall Brown
[2020-01-01 12:31] LABS: Hematocrit 28.6 % (36.0-45.0)
[2020-01-01 12:53] VITALS: BP 120/59; TEMP 97.3
--- NOTE | 2020-01-01 13:06 | P.DS ---
Admission Date: 12/31/19 Discharge Date: 01/01/20 Disposition: ROUTINE DISCHARGE Discharge Condition: FAIR Reason for Admission: Shortness of breath Consultations: Refrigerator Glazier Dr. Curran Brief History of Present Illness: Ms Vickers is 84-year-old female with a history of hypertension, COPD who presented to the hospital with complaints of shortness of breath. Symptoms started suddenly about 2 ruel ago and has rapidly progressed. Patient is on home oxygen and has chronic productive cough with color change of sputum. She had fever at home, as high as 101F. She has been extremely fatigued and with myalgia. Upon presentation, her heart rate was 110 and SpO2 was 88% on 2 L nasal cannula. Hospital Course: Patient is an 84-year-old female with past medical history of hypertension and COPD on oxygen who came into the hospital with shortness of breath and fevers. Patient was thought to have bilateral pneumonia and possible cas[place] virus infection. She was placed on isolation. Started on IV antibiotics and IV fluids. Her white blood cell count improved. Pro calcitonin was negative. Patient did not have any signs of sepsis. She is normally on 2 L of oxygen at home. She was saturating 100% on 4 L. patient was seen by pulmonology. Patient 's cultures also negative to date. Patient's breathing improved. Her BNP was slightly elevated. IV fluids were discontinued. Patient was doing well she was afebrile white blood cell count normalized no signs of sepsis cleared from pulmonology standpoint. Patient's virus testing is still pending at [facility] (formerly [facility]). Result will likely come back in the next 4-5 days. Patient was then discharged home in a stable condition to continue to self quarantine and isolate Ms. Vickers is 84 year old female presented with shortness of breath. # sepsis present on admission secondary to community-acquired pneumonia- SIRS criteria met. Resolved # acute on chronic respiratory failure-COPD exacerbation. Improving -rule out COVID19 infection. Results pending #Chronic normocytic anemia-stable # history of hypertension-stable # thrombocythemia-reactive # hyponatremia-resolved # hyperglycemia- prediabetic. Likely due to steroids. Counseled. Diet and exercise regimen for now. Repeat hemoglobin A1c in 3 months. PCP to follow up and start on metformin if necessary Vital Signs/Physical Exam: Temp Pulse Resp BP Pulse Ox 97.3 F 84 18 120/59 L 99 01/01/20 12:35 01/01/20 12:35 01/01/20 12:35 01/01/20 12:35 01/01/20 12:35 General: Alert, In no apparent distress, Oriented x3, Other (Elderly female, frail cachectic) HEENT: Atraumatic, PERRLA, EOMI Neck: Supple, JVD not distended Respiratory: Diminished, Other (No stridor or use of accessory muscles) Cardiovascular: Regular rate/rhythm, Normal S1 S2 Gastrointestinal: Normal bowel sounds, Soft and benign, Non-distended, No tenderness Musculoskeletal: No tenderness Integumentary: No rashes Neurological: Normal speech, Normal tone, Cranial nerves 3-12 intact, Normal affect Laboratory Data at Discharge: WBC 11.4 K/uL (4.3-10.9) H D 01/01/20 03:59 Hgb 8.7 g/dL (12.0-15.0) L 01/01/20 12:11 Hct 28.6 % (36.0-45.0) L D 01/01/20 12:11 Plt Count 346 K/uL (152-406) 01/01/20 03:59 PT 11.4 SECONDS (9.5-12.5) 12/31/19 16:37 INR 0.97 12/31/19 16:37 APTT 28.0 SECONDS (24.3-36.9) 12/31/19 16:37 Sodium 136 mmol/L (136-145) 01/01/20 03:59 Potassium 4.5 mmol/L (3.5-5.1) 01/01/20 03:59 BUN 24 mg/dL (7-18) H 01/01/20 03:59 Creatinine 0.73 mg/dL (0.55-1.3) 01/01/20 03:59 Glucose 132 mg/dL (74-106) H 01/01/20 03:59 Magnesium 2.1 mg/dL (1.8-2.4) 12/31/19 16:37 Total Bilirubin 0.1 mg/dL (0.2-1.0) L 01/01/20 03:59 AST 7 U/L (15-37) L 01/01/20 03:59 ALT 10 U/L (12-78) L 01/01/20 03:59 Alkaline Phosphatase 45 U/L (45-117) 01/01/20 03:59 Troponin I < 0.02 ng/mL (0.0-0.045) 12/31/19 20:29 Lipase 78 U/L (73-393) 12/31/19 16:37 Home Medications: Albuterol Sulfate [Proair Respiclick] 2 inh IH Q6H PRN 07/07/19 Furosemide 20 mg PO DAILY 07/07/19 Gabapentin 300 mg PO TID 07/07/19 Hydrocodone Bit/Acetaminophen [Hydrocodon-Acetaminophn 10-325] 1 each PO Q6H 02/18 Loratadine 10 mg PO DAILY 07/07/19 Pantoprazole [Protonix Tab*] 40 mg PO DAILY 07/07/19 Umeclidinium Brm/Vilanterol Tr [Anoro Ellipta 62.5-25 Mcg INH] 1 each IH DAILY 07/07/19 carvediloL [Carvedilol] 12.5 mg PO BID 07/07/19 lisinopriL [Lisinopril] 40 mg PO DAILY 07/07/19 predniSONE [Prednisone*] 20 mg PO BID PRN 07/07/19 Vit D3 5000 Intl Units 1 cap PO DAILY 01/01/20 levoFLOXacin [Levaquin] 500 mg PO DAILY #5 tab 01/01/20 New Medications: levoFLOXacin [Levaquin] 500 mg PO DAILY #5 tab Patient Discharge Instructions: Follow up with primary care physician in 2-3 days. Follow up with water maintenance supervisor Dr. Curran in 2 weeks. Return to ER for worsening condition Diet: Low sodium (1500ml fluid restriction) Activity: No strenuous activity Time spent managing pt's care (in minutes): 37
[2020-01-01] MEDS ORDERED: GABAPENTIN 300 MG CAP PO SCH (14:00)
[2020-01-01] MEDS ORDERED: carvediloL 12.5 MG TAB PO SCH (21:00)
[2020-01-01] MEDS ORDERED: ENSURE ENLIVE 237 ML CAN PO SCH (21:00)
[2020-01-02] MEDS ORDERED: HOME MED 1 EA UNK (Umeclidinium Brm/Vilanterol Tr [Anoro Ellipta 62.5-25 Mcg Inh] 1 EACH) IH SCH (09:00)
[2020-01-02] MEDS ORDERED: lisinopriL 20 MG TAB PO SCH (09:00)
[2020-01-02] MEDS ORDERED: PANTOPRAZOLE 40MG TABLET PO SCH (09:00)
[2020-01-02] MEDS ORDERED: FUROSEMIDE 20 MG TABLET PO SCH (09:00)
--- NOTE | 2020-01-07 05:31 | P.PN ---
Date of Service: 01/07/20 Sputum culture growing out E. coli resistant to Levaquin. Cefuroxime is sensitive. Has been called in to pharmacy and message left for the patient.
== END 2020-01-01 14:46 | disposition home or self-care (01) ==
LOC: ER 14:30 → 4TH 17:53
PROVIDERS: ADMIT Hospitalist; ATTEND Family Medicine
DX: A41.9 Sepsis, unspecified organism (principal); J15.5 Pneumonia due to Escherichia coli; J96.20 Acute and chronic respiratory failure, unspecified whether with hypoxia or hypercapnia; J44.1 Chronic obstructive pulmonary disease with (acute) exacerbation; Z99.81 Dependence on supplemental oxygen; E87.1 Hypo-osmolality and hyponatremia; D47.3 Essential (hemorrhagic) thrombocythemia; R73.03 Prediabetes; R73.9 Hyperglycemia, unspecified; I10 Essential (primary) hypertension; D64.9 Anemia, unspecified; Z87.891 Personal history of nicotine dependence; Z83.6 Family history of other diseases of the respiratory system; Z82.3 Family history of stroke; Z82.49 Family history of ischemic heart disease and other diseases of the circulatory system
CPT/HCPCS: 96365; 93005 ×2; 87040 ×2; 87070; 85025 ×2; 80048; 36415; 83735; 82550; 87205; 85610; 80076; 83605; 85730; 87077 ×2; 87186 ×2; 85018; 85014; 83036; 84484 ×2; 82553; 83690; 83540; 80053; 84145; 83880; 84466; 87804 ×2; 71045; 96375; 99285; U0002 ×2; J0456 ×2; J0696 ×2; J7030 ×4; G0378 ×3

== ENCOUNTER 2020-03-07 13:14 | Observation (INO) | payer OTHER ==
[2020-03-07] MEDS ORDERED: LEVALBUTEROL 1.25 MG/3 ML NEB ONE (13:53)
[2020-03-07 14:08] LABS: Urine Blood TRACE (NEG); Urine Glucose NEGATIVE (NEG); Urine Protein NEGATIVE (NEG); Urine pH 5.5 (5.0-7.0)
[2020-03-07 14:26] LABS: Absolute Lymphocytes (CBC) 1.8 K/uL (0.7-4.9); Basophils % 0.9 % (0-1.3); Hematocrit 24.9 % (36.0-45.0); Lymphocytes % 17.1 % (15.3-44.8); MPV 7.9 fL (7.6-11.3); Protime INR 0.99; RBC Red Blood Cell Count 3.16 M/uL (3.86-4.86)
[2020-03-07 14:41] LABS: ALT/SGPT 9 U/L (12-78); AST/SGOT 13 U/L (15-37); Albumin 2.8 g/dL (3.4-5.0); Alkaline Phosphatase 58 U/L (45-117); BUN Blood Urea Nitrogen 26 mg/dL (7-18); Bicarbonate 32 mmol/L (21-32); Bilirubin Direct < 0.1 mg/dL (0-0.2); Bilirubin Total 0.3 mg/dL (0.2-1.0); Glucose Level 106 mg/dL (74-106); Magnesium 2.1 mg/dL (1.8-2.4); NT PRO-BNP 702 pg/mL (<450); Potassium 4.6 mmol/L (3.5-5.1); Protein, Total 6.9 g/dL (6.4-8.2); Sodium Level 138 mmol/L (136-145); Troponin (Emerg Dept Use Only) < 0.02 ng/mL (0.0-0.045)
--- NOTE | 2020-03-07 14:48 | RAD REPORT ---
EXAM DESCRIPTION: MIRANDAMilana Single View03/07/2020 2:34 pm CLINICAL HISTORY: sob COMPARISON: December 2019 FINDINGS: Mild bilateral interstitial lung opacities are mostly chronic The heart is normal size. Moderate hiatal hernia
--- NOTE | 2020-03-07 16:36 | RAD REPORT ---
EXAM DESCRIPTION: CT - Chest For Pe Angio - 03/07/2020 4:25 pm CLINICAL HISTORY: sob COMPARISON: 2019 TECHNIQUE: Dynamically enhanced axial 3 mm thick images of the chest were obtained during administra tion of <100> mL Isovue 370 IV contrast. Coronal and oblique reconstruction images were generated and reviewed. Exam utilizes a protocol for optimal evaluation of pulmonary arterial tree. Maximum intensity projections 3D imaging was utilized All CT scans are performed using dose optimization technique as appropriate and may include automated exposure control or mA/KV adjustment according to patient size. FINDINGS: A pulmonary embolus is not seen. A thoracic aortic aneurysm is not noted. A pleural effusion is not seen. A pericardial effusion is not seen. Mild left lower lobe opacities Mild to moderate bilateral interstitial lung opacities. Moderate hiatal hernia Old thoracic compression fractures IMPRESSION: Negative for a pulmonary embolism. Mild left lower lobe opacities probably a mild pneumonia Mild to moderate bilateral interstitial lung opacities may represent a combination of pneumonitis/int erstitial pneumonia superimposed over chronic changes
--- NOTE | 2020-03-07 17:06 | EDPHYS ---
Physician Documentation [facility] Name: Allison Vickers Age: 84 yrs Sex: Female : 1935 Arrival Date: 03/07/2020 Time: 13:18 Bed 20 Private MD: Lisa Nesbitt R ED Physician Chin Allan HPI: 03/07 14:03 This 84 yrs old Female presents to ER via Wheelchair with complaints of jmm Cough, Congestion. 14:03 The patient or guardian reports cough, described as moderate. Onset: The jmm symptoms/episode began/occurred chronic. Modifying factors: The symptoms are alleviated by nothing, prescription meds, azithromycin. This is an 84 year old female with a history of COPD, anemia that presents to the ED with complaints of cough, shortness of breath worsening since yesterday. Patient states having increased body aches beginning today. . Historical: - Allergies: 13:29 Clindamycin; ll1 13:29 Codeine; ll1 - PMHx: 13:29 IRON DEFICIENCY ANEMIA; ADD/ADHD; Arthritis; carpal tunnel syndrome; chronic ll1 bronchitis; diverticulosis; hiatal hernia; Hypertension; - PSHx: 13:29 Appendectomy; Tubal ligation; Carpal Tunnel Repair; Back; ll1 - Immunization history:: Flu vaccine is up to date. - Social history:: Patient/guardian denies using alcohol, street drugs, tobacco products, Smoking status: Patient/guardian denies using tobacco, the patient reports quitting approximately 2 years ago. ROS: 14:03 Constitutional: Negative for fever, chills, and weight loss, Cardiovascular: Negative jmm for chest pain, palpitations, and edema. 14:03 Respiratory: Positive for cough. 14:03 All other systems are negative. Exam: 14:03 Constitutional: This is a well developed, well nourished patient who is awake, alert, jmm and in no acute distress. Head/Face: atraumatic. Eyes: EOMI, no conjunctival erythema appreciated ENT: Moist Mucus Membranes Neck: Trachea midline, Supple Chest/axilla: Normal chest wall appearance and motion. Cardiovascular: Regular rate and rhythm. No edema appreciated 14:03 Abdomen/GI: Non distended, soft Back: Normal ROM Skin: General appearance color normal MS/ Extremity: Moves all extremities, no obvious deformities appreciated, no edema noted to the lower extremities Neuro: Awake and alert, normal gait Psych: Behavior is normal, Mood is normal, Patient is cooperative and pleasant 14:03 Respiratory: mild respiratory distress is noted, Respirations: normal, Breath sounds: wheezing: that is moderate, is heard diffusely. Vital Signs: 13:35 BP 134 / 65; Pulse 79; Resp 18; Temp 98.4; Pulse Ox 97% on 2 lpm NC; Pain 3/10; ll1 14:00 BP 129 / 53; Pulse 97; Resp 17; Pulse Ox 98% ; ah 15:00 BP 130 / 57; Pulse 77; Resp 18; Pulse Ox 94% on 2 lpm NC; ah 16:00 BP 102 / 76; Pulse 79; Resp 18; Pulse Ox 99% ; ah 18:00 BP 104 / 49; Pulse 79; Resp 18; Pulse Ox 99% 2 lpm ; ah 19:05 BP 97 / 46; Pulse 75; Resp 18; Pulse Ox 94% 2 lpm ; ah 20:19 BP 101 / 47; Pulse 62; Resp 18; Pulse Ox 93% ; ah MDM: 13:28 Patient medically screened. [facility] 17:04 Data reviewed: vital signs, nurses notes. Counseling: I had a detailed discussion with [facility] the patient and/or guardian regarding: the historical points, exam findings, and any diagnostic results supporting the discharge/admit diagnosis, radiology results, the need for further work-up and treatment in the hospital. ED course: I discussed the patient with Beto Ayers whom accepted admission for Dr. Thomason. . 03/07 13:28 Order name: Basic Metabolic Panel; Complete Time: 14:48 [facility] 03/07 13:28 Order name: CBC with Diff; Complete Time: 14:48 [facility] 03/07 13:28 Order name: LFT's; Complete Time: 14:48 [facility] 03/07 13:28 Order name: Magnesium; Complete Time: 14:48 [facility] 03/07 13:28 Order name: NT PRO-BNP; Complete Time: 14:48 [facility] 03/07 13:28 Order name: PT-INR; Complete Time: 14:48 [facility] 03/07 13:28 Order name: Troponin (emerg Dept Use Only); Complete Time: 14:48 [facility] 03/07 13:28 Order name: XRAY Chest (1 view); Complete Time: 14:52 [facility] 03/07 13:29 Order name: Procalcitonin; Complete Time: 15:10 [facility] 03/07 13:29 Order name: Lactate; Complete Time: 14:48 [facility] 03/07 13:29 Order name: Blood Culture Adult (2) [facility] 03/07 14:03 Order name: Urine Dipstick--Ancillary (enter results); Complete Time: 14:48 eb 03/07 19:03 Order name: COVID-19 hb 03/07 20:12 Order name: [facility] 03/07 13:28 Order name: EKG; Complete Time: 13:29 [facility] 03/07 13:28 Order name: Cardiac monitoring; Complete Time: 14:16 [facility] 03/07 13:28 Order name: EKG - Nurse/Tech; Complete Time: 14:16 [facility] 03/07 13:28 Order name: IV Saline Lock; Complete Time: 14:16 [facility] 03/07 13:28 Order name: Labs collected and sent; Complete Time: 14:37 [facility] 03/07 13:28 Order name: O2 Per Protocol; Complete Time: 14:37 [facility] 03/07 13:28 Order name: O2 Sat Monitoring; Complete Time: 14:38 [facility] 03/07 13:31 Order name: Urine Dipstick-Ancillary (obtain specimen); Complete Time: 14:36 [facility] 03/07 14:53 Order name: CT Chest For PE Angio; Complete Time: 16:50 jmm Administered Medications: 14:30 Drug: Xopenex (3) 1.25 mg Route: Inhalation; 17:55 Drug: LevaQUIN 750 mg Volume: 150 ml; Route: IVPB; Infused Over: 90 mins; Site: right hand; 20:26 Follow up: Response: No adverse reaction; IV Status: Completed infusion Disposition: 03/08 07:08 Co-signature as Attending Physician, Chin Allan MD. rn Disposition: 03/07/20 17:06 Hospitalization ordered by Marques Thomason for Observation. Preliminary diagnosis are Pneumonia, Dypnea, Chronic obstructive pulmonary disease with (acute) exacerbation. - Bed requested for Telemetry/MedSurg (observation). - Status is Observation. - Condition is Stable. - Problem is new. - Symptoms are unchanged. Signatures: Dispatcher [employer] EDNahomy Agarwal RN RN Moises Gray PA PA [facility] Chin Allan MD MD rn Harris, Amy RN Yareli Farooq RN RN ll1 Corrections: (The following items were deleted from the chart) 03/07 18:31 17:06 Hospitalization Ordered by Marques Tohmason DO for Observation. Preliminary diagnosis is Pneumonia; Dypnea; Chronic obstructive pulmonary disease with (acute) exacerbation. Bed requested for Telemetry/MedSurg (observation). Status is Observation. Condition is Stable. Problem is new. Symptoms are unchanged. [facility] 20:27 18:31 03/07/2020 17:06 Hospitalization Ordered by Marques Thomason DO for Observation. Preliminary diagnosis is Pneumonia; Dypnea; Chronic obstructive pulmonary disease with (acute) exacerbation. Bed requested for Telemetry/MedSurg (observation). Status is Observation. Condition is Stable. Problem is new. Symptoms are unchanged. dw
--- NOTE | 2020-03-07 17:06 | ER ---
Nurse's Notes [facility] Name: Allison Vickers Age: 84 yrs Sex: Female : 1935 Arrival Date: 03/07/2020 Time: 13:18 Bed 20 Private MD: Lisa Nesbitt R Diagnosis: Pneumonia;Dypnea;Chronic obstructive pulmonary disease with (acute) exacerbation Presentation: 03/07 13:27 Chief complaint: Patient states: Cough/congestion remains, body aches all over. States ll1 she had pneumonia that she never fully got better from. Onset of symptoms. 13:27 Method Of Arrival: Wheelchair ll1 13:27 Acuity: JESUS 3 ll1 13:35 Coronavirus screen: Surgical mask placed on patient. Patient moved to private room, ll1 placed in contact and droplet isolation with eye protection until further assessment. Patient reports a cough. Patient reports shortness of breath or difficulty breathing. Patient reports a measured and/or subjective temperature greater than 100.4F. Patient denies travel on a cruise ship or to a country the [facility] currently lists as an affected area. Patient denies contact with known and/or suspected case of COVID-19. Ebola Screen: Patient denies travel to an Ebola-affected area in the 21 days before illness onset. Initial Sepsis Screen: Does the patient meet any 2 criteria? No. Patient's initial sepsis screen is negative. Does the patient have a suspected source of infection? Yes: Productive cough/pneumonia. Risk Assessment: Do you want to hurt yourself or someone else? Patient reports no desire to harm self or others. Historical: - Allergies: 13:29 Clindamycin; ll1 13:29 Codeine; ll1 - PMHx: 13:29 IRON DEFICIENCY ANEMIA; ADD/ADHD; Arthritis; carpal tunnel syndrome; chronic ll1 bronchitis; diverticulosis; hiatal hernia; Hypertension; - PSHx: 13:29 Appendectomy; Tubal ligation; Carpal Tunnel Repair; Back; ll1 - Immunization history:: Flu vaccine is up to date. - Social history:: Patient/guardian denies using alcohol, street drugs, tobacco products, Smoking status: Patient/guardian denies using tobacco, the patient reports quitting approximately 2 years ago. Screenin:03 Abuse screen: Denies threats or abuse. Nutritional screening: No deficits noted. Tuberculosis screening: No symptoms or risk factors identified. Fall Risk None identified. Assessment: 14:15 General: Appears in no apparent distress. Behavior is calm, cooperative. Pain: Denies ah pain. Neuro: Level of Consciousness is awake, alert, Oriented to person, place, time, situation. Cardiovascular: Capillary refill < 3 seconds Patient's skin is warm and dry. Respiratory: Airway is patent Respiratory effort is even, unlabored, Respiratory pattern is regular, symmetrical, Breath sounds with wheezes bilaterally. Respiratory: Reports shortness of breath at rest cough that is productive, GI: Bowel sounds present X 4 quads. : No signs and/or symptoms were reported regarding the genitourinary system. 15:15 Reassessment: Patient and/or family updated on plan of care and expected duration. Pain ah level reassessed. No needs voiced at this time. Vital Signs: 13:35 BP 134 / 65; Pulse 79; Resp 18; Temp 98.4; Pulse Ox 97% on 2 lpm NC; Pain 3/10; ll1 14:00 BP 129 / 53; Pulse 97; Resp 17; Pulse Ox 98% ; ah 15:00 BP 130 / 57; Pulse 77; Resp 18; Pulse Ox 94% on 2 lpm NC; ah 16:00 BP 102 / 76; Pulse 79; Resp 18; Pulse Ox 99% ; ah 18:00 BP 104 / 49; Pulse 79; Resp 18; Pulse Ox 99% 2 lpm ; ah 19:05 BP 97 / 46; Pulse 75; Resp 18; Pulse Ox 94% 2 lpm ; ah 20:19 BP 101 / 47; Pulse 62; Resp 18; Pulse Ox 93% ; ah ED Course: 13:18 Patient arrived in ED. mr 13:18 Lisa Nesbitt MD is Private Physician. mr 13:18 [facility] 13:18 Chin Allan MD is Attending Physician. [facility] 13:28 Triage completed. ll1 13:30 Arm band placed on Patient placed in an exam room, on a stretcher. ll1 13:37 Ira Mckenzie, RN is Primary Nurse. ah 14:05 Initial lab(s) drawn, by me, sent to lab. First set of blood cultures drawn by me. EKG em1 done, by ED staff, reviewed by Moises CATALAN. Inserted saline lock: 20 gauge in right wrist, using aseptic technique. Blood collected. 14:35 XRAY Chest (1 view) In Process Unspecified. EDMS 15:03 Patient has correct armband on for positive identification. Bed in low position. Call light in reach. Side rails up X 1. quality assurance monitor final on. Pulse ox on. NIBP on. 15:43 Radiology exam delayed due to IV insertion attempt and/or patient not having vm2 appropriate IV at this time. 16:27 CT Chest For PE Angio In Process Unspecified. EDMS 17:05 Marques Thomason DO is Hospitalizing Provider. [facility] 19:14 No provider procedures requiring assistance completed. Patient admitted, IV remains in place. 19:33 COVID-19 Sent. Administered Medications: 14:30 Drug: Xopenex (3) 1.25 mg Route: Inhalation; 17:55 Drug: LevaQUIN 750 mg Volume: 150 ml; Route: IVPB; Infused Over: 90 mins; Site: right hand; 20:26 Follow up: Response: No adverse reaction; IV Status: Completed infusion Outcome: 17:06 Decision to Hospitalize by Provider. [facility] 20:22 Admitted to [facility] accompanied by [facility], via stretcher, room 413, with oxygen, Report called to SAMANTHA López 20:22 Condition: stable 20:22 Instructed on the need for admit. 20:27 Patient left the ED. Signatures: Dispatcher [employer] [facility] Moises Fox PA PA [facility] Jassi, Monique Ley, Marciano em1 Ila Weber 2 Ira Mckenzie, RN RN Yareli Polanco RN RN ll1
[2020-03-07] MEDS ORDERED: Levofloxacin 750mg IV 750 MG/150 ML BAG IV ONE (17:55)
--- NOTE | 2020-03-07 18:07 | P.HP ---
Certification for Inpatient Patient admitted to: Observation With expected LOS: <2 Midnights Patient will require the following post-hospital care: None Practitioner: I am a practitioner with admitting privileges, knowledge of patient current condition, hospital course, and medical plan of care. Services: Services provided to patient in accordance with Admission requirements found in Title 42 Section 412.3 of the Code of Federal Regulations Patient History Date of Service: 03/07/20 Primary Care Provider: Dr. Wong; Pulmonary-Dr. Curran Reason for admission: cough, SOB History of Present Illness: 84-year-old female with history of COPD on chronic oxygen, hypertension, anemia of chronic disease, chronic pain and diastolic CHF. Patient presents with increasing and worsening cough which shortness of breath. Patient was seen by her PCP about 2 weeks ago. At that time she was given Zithromax. She reports that since that time her symptoms have been getting worse. Sputum now and yellow. Patient uses home oxygen. She has reported some weakness over the several days. Patient has not followed up with Pulmonary recently. She denies any fever, chills. She denies any significant chest pain. In the ER patient was evaluated. White count 10.8, hemoglobin 7.7. Prior hemoglobin was 8.7. Lactic acid and pro calcitonin unremarkable. Troponin unremarkable. Sodium 138, potassium 4.6. BUN of 26, creatinine 0.7. GFR 71. Glucose 106. Chest x-ray showed bilateral chronic opacities. CT scan shows no pulmonary embolism. Left lower lobe pneumonia and identified. Bilateral lung opacities likely chronic interstitial disease. Patient given antibiotic therapy. Patient admitted for further evaluation and observation. When I saw the patient ER, patient appeared stable. She does not appear septic. Allergies clindamycin Allergy (Verified 07/07/19 15:27) unknown reaction codeine Allergy (Verified 07/07/19 15:27) unknown reaction Home medications list reviewed: Yes Home Medications: Albuterol Sulfate [Proair Respiclick] 2 inh IH Q6H PRN 07/07/19 Furosemide 20 mg PO DAILY 07/07/19 Gabapentin 300 mg PO TID 07/07/19 Hydrocodone Bit/Acetaminophen [Hydrocodon-Acetaminophn 10-325] 1 each PO Q6H 07/07/19 Loratadine 10 mg PO DAILY 07/07/19 Pantoprazole [Protonix Tab*] 40 mg PO DAILY 07/07/19 Umeclidinium Brm/Vilanterol Tr [Anoro Ellipta 62.5-25 Mcg INH] 1 each IH DAILY 07/07/19 carvediloL [Carvedilol] 12.5 mg PO BID 07/07/19 lisinopriL [Lisinopril] 40 mg PO DAILY 07/07/19 predniSONE [Prednisone*] 20 mg PO BID PRN 07/07/19 Vit D3 5000 Intl Units 1 cap PO DAILY 01/01/20 levoFLOXacin [Levaquin] 500 mg PO DAILY #5 tab 01/01/20 Cefuroxime Axetil [Cefuroxime] 500 mg PO BID #14 tab 01/07/20 - Past Medical/Surgical History Diabetic: No -: Hypertension -: Chronic vertebral fractures -: Former smoker -: GERD with hiatal hernia -: Anemia of chronic disease -: Chronic pain -: Diastolic CHF with pulmonary hypertension -: Carpal tunnel disease -: Back surgery -: Appendectomy -: carpal tunnel sx -: tubal ligation Psychosocial/ Personal History: Patient is - Family History Father -: Hypertension, Stroke Mother -: Hypertension, Stroke Brother -: Lung disease Sister -: Heart disease - Social History Smoking Status: Former smoker Alcohol use: No CD- Drugs: No Caffeine use: Yes Place of Residence: Home Review of Systems General: Weakness, As per HPI Eyes: Unremarkable ENT: Unremarkable Respiratory: Cough, Shortness of Breath, SOB with Excertion, Sputum, As per HPI Cardiovascular: As per HPI Gastrointestinal: Unremarkable Genitourinary: Unremarkable Musculoskeletal: Unremarkable Integumentary: Unremarkable Neurological: Unremarkable Lymphatics: Unremarkable Physical Examination - Physical Exam General: Alert, In no apparent distress, Oriented x3, Cooperative, Other (Patient does appear pale) HEENT: Atraumatic, Normocephalic, Other (Dry mucous membranes) Neck: Supple Respiratory: Crackles/rales (Bilateral) Cardiovascular: Normal pulses, Regular rate/rhythm Gastrointestinal: Normal bowel sounds, Soft and benign, Non-distended, No tenderness, No masses, No rebound, No guarding Musculoskeletal: No erythema, No tenderness, No warmth Integumentary: No tenderness/swelling, No erythema, No warmth, No cyanosis Neurological: Normal speech, Normal strength at 5/5 x4 extr, Normal tone, Normal affect - Studies Laboratory Data (last 24 hrs) 03/07/20 14:05: PT 11.7, INR 0.99 03/07/20 14:05: WBC 10.8, Hgb 7.7 L*, Hct 24.9 L, Plt Count 472 H 03/07/20 14:05: Sodium 138, Potassium 4.6, BUN 26 H, Creatinine 0.78, Glucose 106, Magnesium 2.1, Total Bilirubin 0.3, AST 13 L, ALT 9 L, Alkaline Phosphatase 58 Assessment and Plan - Plan Impression: Shortness of breath, increased sputum with cough secondary to left lower lobe pneumonia with possible COPD exacerbation on chronic oxygen Anemia of chronic disease Chronic diastolic CHF with pulmonary hypertension GERD with hiatal hernia Chronic pain Plan: Shortness of breath, increased sputum with cough secondary to left lower lobe p neumonia with possible COPD exacerbation on chronic oxygen: Patient will be admitted for further evaluation and treatment. Will monitor on telemetry. Will start IV Levaquin. Will obtain blood, sputum cultures. Will also obtain COVID evaluation. Will consult pulmonology to further evaluate. Will also provide prednisone 10 mg daily. Will continue with COPD medication. Continue to maintain oxygen above 93%. Hemoglobin is low compared to prior. Will recheck in 4 hr. If hemoglobin less than 7.5 will transfuse 1 unit. Will continue to reassess. Recheck lab tomorrow. If medically stable. Anticipate discharge tomorrow. Advanced care planning and advanced directives addressed. Patient wishes to be full code. Patient is not require home health at discharge. Anemia of chronic disease: Patient with chronic anemia. Hemoglobin low compared to prior. Maintain hemoglobin above 7.5. Will recheck hemoglobin. Will transfuse if hemoglobin below 7.5. Chronic diastolic CHF with pulmonary hypertension: Will continue with Lasix and hypertensive medication. Will monitor closely. GERD with hiatal hernia: Will continue with Protonix. Chronic pain: Continue with chronic pain medication. Discharge Plan: Home Plan to discharge in: 24 Hours - Advance Directives Does patient have a Living Will: No Does patient have a Durable POA for Healthcare: No - Code Status/Comfort Care Code Status Assessed: Yes (Patient is full code) Time Spent Managing Pts Care (In Minutes): 55
[2020-03-07] MEDS ORDERED: TRAMADOL HCL 50 MG TAB PO PRN (21:10)
[2020-03-07] MEDS ORDERED: carvediloL 12.5 MG TAB PO ONE (21:10)
[2020-03-07] MEDS ORDERED: FUROSEMIDE 40 MG TABLET PO ONE (21:10)
[2020-03-07] MEDS: DULERA 100/5 (MOMETASONE/FORMOTEROL) INHALER IH SCH (21:10)
[2020-03-07] MEDS ORDERED: SODIUM CHLORIDE 0.9% 10ML INJ IV PRN (21:10)
[2020-03-07] MEDS ORDERED: ONDANSETRON 4 MG/2 ML VIAL IV PRN (21:10)
[2020-03-07] MEDS ORDERED: ALBUTEROL INHALER 60 PUFF/8 GM IH PRN (21:10)
[2020-03-07] MEDS ORDERED: ACETAMINOPHEN 500 MG TAB PO PRN (21:10)
[2020-03-07] MEDS: PANTOPRAZOLE 40 MG INJ IVP SCH (21:31)
[2020-03-07 21:58] VITALS: BMI 18.2
[2020-03-07] MEDS: HYDROCODONE/APAP 7.5/325 MG TAB PO PRN (23:55)
[2020-03-08 05:09] VITALS: O2SAT 97
[2020-03-08] MEDS: HYDROCODONE/APAP 7.5/325 MG TAB PO PRN (05:46)
[2020-03-08 06:28] LABS: Absolute Lymphocytes (CBC) 1.6 K/uL (0.7-4.9); Basophils % 0.7 % (0-1.3); Hematocrit 26.7 % (36.0-45.0); Lymphocytes % 22.2 % (15.3-44.8); MPV 7.6 fL (7.6-11.3)
[2020-03-08 06:50] LABS: Potassium 4.4 mmol/L (3.5-5.1)
--- NOTE | 2020-03-08 07:52 | EKG ---
Test Date: 2020-03-07 Test Time: 14:12:45 Correctional Supervisor Lieutenant: MARYBEL MEASUREMENT RESULTS: Intervals: Rate: 74 WI: 136 QRSD: 72 QT: 348 QTc: 386 [place]: P: 81 WI: 136 QRS: 61 T: 62 INTERPRETIVE STATEMENTS: Normal sinus rhythm Normal ECG Compared to ECG 12/31/2019 15:06:06 Ventricular premature complex(es) no longer present Electronically Signed On 03-08-20 07:51:49 CDT by Randall Brown
[2020-03-08] MEDS ORDERED: PNEUMOCOCCAL VACCINE 0.5 ML IMVAC ONE (08:00)
[2020-03-08] MEDS ORDERED: ENOXAPARIN 40 MG/0.4 ML SQ SCH (09:00)
[2020-03-08] MEDS ORDERED: predniSONE 10 MG TAB PO SCH (09:00)
[2020-03-08] MEDS: DULERA 100/5 (MOMETASONE/FORMOTEROL) INHALER IH SCH (09:00)
[2020-03-08] MEDS ORDERED: lisinopriL 20 MG TAB PO SCH (09:00)
[2020-03-08] MEDS: PANTOPRAZOLE 40 MG INJ IVP SCH (09:41)
--- NOTE | 2020-03-08 09:54 | P.DS ---
Admission Date: 03/07/20 Discharge Date: 03/08/20 Primary Care Provider: Dr. Wong; Pulmonary-Dr. Curran; Pain management- Dr. Flowers Disposition: ROUTINE DISCHARGE Discharge Condition: GOOD Reason for Admission: cough, SOB Consultations: Pulmonary-Dr. Curran Procedures: CT Chest: FINDINGS: A pulmonary embolus is not seen. A thoracic aortic aneurysm is not noted. A pleural effusion is not seen. A pericardial effusion is not seen. Mild left lower lobe opacities Mild to moderate bilateral interstitial lung opacities. Moderate hiatal hernia Old thoracic compression fractures IMPRESSION: Negative for a pulmonary embolism. Mild left lower lobe opacities probably a mild pneumonia Mild to moderate bilateral interstitial lung opacities may represent a combination of pneumonitis/interstitial pneumonia superimposed over chronic changes Medical Problem List: Shortness of breath, increased sputum with cough secondary to left lower lobe pneumonia with possible COPD exacerbation on chronic oxygen Anemia of chronic disease with iron deficiency Chronic diastolic CHF with pulmonary hypertension GERD with hiatal hernia Chronic pain Brief History of Present Illness: 84-year-old female with history of COPD on chronic oxygen, hypertension, anemia of chronic disease, chronic pain and diastolic CHF. Patient presents with increasing and worsening cough which shortness of breath. Patient was seen by her PCP about 2 weeks ago. At that time she was given Zithromax. She reports that since that time her symptoms have been getting worse. Sputum now and yellow. Patient uses home oxygen. She has reported some weakness over the several days. Patient has not followed up with Pulmonary recently. She denies any fever, chills. She denies any significant chest pain. In the ER patient was evaluated. White count 10.8, hemoglobin 7.7. Prior hemoglobin was 8.7. Lactic acid and pro calcitonin unremarkable. Troponin unremarkable. Sodium 138, potassium 4.6. BUN of 26, creatinine 0.7. GFR 71. Glucose 106. Chest x-ray showed bilateral chronic opacities. CT scan shows no pulmonary embolism. Left lower lobe pneumonia and identified. Bilateral lung opacities likely chronic interstitial disease. Patient given antibiotic therapy. Patient admitted for further evaluation and observation. When I saw the patient ER, patient appeared stable. She does not appear septic. Hospital Course: Patient presented with shortness of breath, increased sputum with cough secondary to left lower lobe pneumonia with possible COPD exacerbation. Patient with advanced COPD on chronic oxygen. Patient had been treated recently by her PCP with Zithromax. Symptoms worsened. Patient was admitted for further evaluation and treatment. CT scan revealed left lower lobe pneumonia. Patient was started on antibiotic therapy with improvement. At discharge she is without significant shortness of breath. Vital signs stable. She is without fever. Patient seen and evaluated by pulmonology. At discharge patient will continue with Levaquin 500 mg daily for 7 days. Patient will also continue with prednisone 10 mg daily for 7 days. At discharge she will continue with her COPD medication including Anoro 1 puff daily and albuterol 2 puffs 3 times a day as needed for shortness of breath. Recommend to recheck chest x-ray in 2-4 weeks to monitor resolution. Recommend to follow up with pulmonology in 1-2 weeks to follow up this hospitalization. Patient will continue with home oxygen to maintain sats above 93%. Patient with chronic diastolic CHF with pulmonary hypertension. This has remained stable. At discharge she will continue with her medication of Lasix 40 mg daily along with potassium supplementation. Patient will also continue with carvedilol 12.5 mg 1 pill twice daily and lisinopril 40 mg daily. Recommend to maintain blood pressure less 150/80. Further adjustment can be done by her PCP or pulmonology. Recommend to continue a 1500 cc per day fluid restriction and low-salt diet. Recommend to monitor her weight daily. If her weight increases by more than 5 lb she is to contact pulmonology for further recommendation. Patient with anemia of chronic disease. Patient with history of iron deficiency as well. Hemoglobin has remained stable. Will recommend to continue with iron 325 mg twice daily. Recommend to recheck CBC in 2-4 weeks to monitor her progress. Patient may require further evaluation to address her anemia if this has not been addressed in the past. This would require a EGD and colonoscopy. This can be further addressed by her PCP. Patient with GERD and hiatal hernia. Recommend to continue Protonix 40 mg daily. Recommend to follow up with GI to further monitor and address. Patient may require EGD and colonoscopy in the future to further monitor. Patient with chronic pain. At discharge she will continue with her pain medication including Tifton 10/325 mg 1 pill 3 times a day as needed for pain and gabapentin 300 mg 3 times a day. Patient will follow up with pain management to further monitor and address. Vital Signs/Physical Exam: Temp Pulse Resp BP Pulse Ox 98.5 F 85 17 141/66 H 92 03/08/20 08:00 03/08/20 08:00 03/08/20 08:00 03/08/20 08:00 03/08/20 08:00 General: Alert, In no apparent distress, Oriented x3, Cooperative HEENT: Atraumatic Neck: Supple Respiratory: Expiratory wheezes (Mild bilateral but good air movement) Cardiovascular: Normal pulses, Regular rate/rhythm Gastrointestinal: Normal bowel sounds, Soft and benign, Non-distended, No tenderness, No masses, No rebound, No guarding Musculoskeletal: No erythema, No tenderness, No warmth Integumentary: No tenderness/swelling, No erythema, No warmth, No cyanosis Neurological: Normal speech, Normal strength at 5/5 x4 extr, Normal tone, Normal affect Laboratory Data at Discharge: WBC 7.1 K/uL (4.3-10.9) D 03/08/20 06:12 Hgb 8.2 g/dL (12.0-15.0) L 03/08/20 06:12 Hct 26.7 % (36.0-45.0) L 03/08/20 06:12 Plt Count 434 K/uL (152-406) H 03/08/20 06:12 PT 11.7 SECONDS (9.5-12.5) 03/07/20 14:05 INR 0.99 03/07/20 14:05 Sodium 139 mmol/L (136-145) 03/08/20 06:12 Potassium 4.4 mmol/L (3.5-5.1) 03/08/20 06:12 BUN 17 mg/dL (7-18) 03/08/20 06:12 Creatinine 0.69 mg/dL (0.55-1.3) 03/08/20 06:12 Glucose 89 mg/dL (74-106) 03/08/20 06:12 Magnesium 2.1 mg/dL (1.8-2.4) 03/07/20 14:05 Total Bilirubin 0.3 mg/dL (0.2-1.0) 03/07/20 14:05 AST 13 U/L (15-37) L 03/07/20 14:05 ALT 9 U/L (12-78) L 03/07/20 14:05 Alkaline Phosphatase 58 U/L (45-117) 03/07/20 14:05 Home Medications: Albuterol Sulfate [Proair Respiclick] 2 inh IH Q6H PRN 07/07/19 Furosemide 40 mg PO DAILY 07/07/19 Gabapentin 300 mg PO TID 07/07/19 Hydrocodone Bit/Acetaminophen [Hydrocodon-Acetaminophn 10-325] 1 each PO Q6H 07/07/19 Loratadine 10 mg PO DAILY 07/07/19 Pantoprazole [Protonix Tab*] 40 mg PO DAILY 07/07/19 Umeclidinium Brm/Vilanterol Tr [Anoro Ellipta 62.5-25 Mcg INH] 1 each IH DAILY 07/07/19 carvediloL [Carvedilol] 12.5 mg PO BID 07/07/19 lisinopriL [Lisinopril] 40 mg PO DAILY 07/07/19 Vit D3 5000 Intl Units 1 cap PO DAILY 01/01/20 Potassium Chloride [Klor-Con M20] 1 tab PO DAILY 03/07/20 Ferrous Sulfate [Iron] 325 mg PO BID #60 tablet 03/08/20 Levofloxacin [Levaquin] 500 mg PO DAILY #7 tablet 03/08/20 predniSONE [Deltasone*] 10 mg PO DAILY #7 tab 03/08/20 New Medications: predniSONE [Deltasone*] 10 mg PO DAILY #7 tab Ferrous Sulfate [Iron] 325 mg PO BID #60 tablet Levofloxacin [Levaquin] 500 mg PO DAILY #7 tablet Patient Discharge Instructions: 1. Recommend follow up with PCP in 1 week to follow up hospitalization. 2. Patient presented with shortness of breath, increased sputum with cough secondary to left lower lobe pneumonia with possible COPD exacerbation. Patient with advanced COPD on chronic oxygen. Patient had been treated recently by her PCP with Zithromax. Symptoms worsened. Patient was admitted for further evaluation and treatment. CT scan revealed left lower lobe pneumonia. Patient was started on antibiotic therapy with improvement. At discharge she is without significant shortness of breath. Vital signs stable. She is without fever. Patient seen and evaluated by pulmonology. At discharge patient will continue with Levaquin 500 mg daily for 7 days. Patient will also continue with prednisone 10 mg daily for 7 days. At discharge she will continue with her COPD medication including Anoro 1 puff daily and albuterol 2 puffs 3 times a day as needed for shortness of breath. Recommend to recheck chest x-ray in 2-4 weeks to monitor resolution. Recommend to follow up with pulmonology in 1-2 weeks to follow up this hospitalization. Patient will continue with home oxygen to maintain sats above 93%. 3. Patient with chronic diastolic CHF with pulmonary hypertension. This has remained stable. At discharge she will continue with her medication of Lasix 40 mg daily along with potassium supplementation. Patient will also continue with carvedilol 12.5 mg 1 pill twice daily and lisinopril 40 mg daily. Recommend to maintain blood pressure less 150/80. Further adjustment can be done by her PCP or pulmonology. Recommend to continue a 1500 cc per day fluid restriction and low-salt diet. Recommend to monitor her weight daily. If her weight increases by more than 5 lb she is to contact pulmonology for further recommendation. 4. Patient with anemia of chronic disease. Patient with history of iron deficiency as well. Hemoglobin has remained stable. Will recommend to continue with iron 325 mg twice daily. Recommend to recheck CBC in 2-4 weeks to monitor her progress. Patient may require further evaluation to address her anemia if this has not been addressed in the past. This would require a EGD and colonoscopy. This can be further addressed by her PCP. 5. Patient with GERD and hiatal hernia. Recommend to continue Protonix 40 mg daily. Recommend to follow up with GI to further monitor and address. Patient may require EGD and colonoscopy in the future to further monitor. 6. Patient with chronic pain. At discharge she will continue with her pain medication including Tifton 10/325 mg 1 pill 3 times a day as needed for pain and gabapentin 300 mg 3 times a day. Patient will follow up with pain management to further monitor and address. Diet: AHA Activity: Fall precautions Time spent managing pt's care (in minutes): 55
[2020-03-08] MEDS ORDERED: GABAPENTIN 300 MG CAP PO SCH (14:00)
--- NOTE | 2020-03-08 16:46 | P.CNS ---
Date of Consult: 03/08/20 Primary Care Provider: Dr. Wong; Pulmonary-Dr. Curran; Pain management- Dr. Flowers Chief Complaint: cough, SOB History of Present Illness: Patient is 84 years of age well known to me recurrent hospital admissions with a history of severe COPD as not been feeling well for a week complaining of generalized body pain was treated with some Zithromax no relief has some shortness of breath on exertion denies any fever was a productive cough compliant with medications Allergies clindamycin Allergy (Verified 03/07/20 22:18) unknown reaction codeine Allergy (Verified 03/07/20 22:18) unknown reaction Home Medications: Albuterol Sulfate [Proair Respiclick] 2 inh IH Q6H PRN 07/07/19 Furosemide 40 mg PO DAILY 07/07/19 Gabapentin 300 mg PO TID 07/07/19 Hydrocodone Bit/Acetaminophen [Hydrocodon-Acetaminophn 10-325] 1 each PO Q6H 07/07/19 Loratadine 10 mg PO DAILY 07/07/19 Pantoprazole [Protonix Tab*] 40 mg PO DAILY 07/07/19 Umeclidinium Brm/Vilanterol Tr [Anoro Ellipta 62.5-25 Mcg INH] 1 each IH DAILY 07/07/19 carvediloL [Carvedilol] 12.5 mg PO BID 07/07/19 lisinopriL [Lisinopril] 40 mg PO DAILY 07/07/19 Vit D3 5000 Intl Units 1 cap PO DAILY 01/01/20 Potassium Chloride [Klor-Con M20] 1 tab PO DAILY 03/07/20 Doxycycline Hyclate 100 mg PO BID #20 tablet 03/08/20 Ferrous Sulfate [Iron] 325 mg PO BID #60 tablet 03/08/20 Levofloxacin [Levaquin] 500 mg PO DAILY #7 tablet 03/08/20 predniSONE [Deltasone*] 10 mg PO DAILY #7 tab 03/08/20 - Past Medical/Surgical History Diabetic: No -: Hypertension -: Chronic vertebral fractures -: Former smoker -: GERD with hiatal hernia -: Anemia of chronic disease -: Chronic pain -: Diastolic CHF with pulmonary hypertension -: Carpal tunnel disease -: Back surgery -: Appendectomy -: carpal tunnel sx -: tubal ligation Psychosocial/ Personal History: Patient is - Family History Father Medical History: Hypertension, Stroke Mother Medical History: Hypertension, Stroke Brother Medical History: Lung disease Sister Medical History: Heart disease - Social History Alcohol use: No CD- Drugs: No Caffeine use: Yes Place of Residence: Home Review of Systems General: Weakness Respiratory: Cough, Shortness of Breath Physical Examination Temp Pulse Resp BP Pulse Ox 98.6 F 81 18 148/67 H 95 03/08/20 12:00 03/08/20 12:00 03/08/20 12:00 03/08/20 12:00 03/08/20 12:00 General: Alert, Oriented x3, Mild distress Respiratory: Friction rub, Expiratory wheezes Cardiovascular: Regular rate/rhythm, Normal S1 S2 Gastrointestinal: Normal bowel sounds, Soft and benign - Problems (1) COPD exacerbation Current Visit: Yes Status: Acute Plan: Patient is 84 years of age admitted with COPD exacerbation may have an underlying pneumonia high risk for resistant infections I agree with levofloxacin also add doxycycline sputum cultures at was also anemic microcytic I have also ordered a serum ferritin levels B12 level she will benefit from long-acting nebulize medication which have worsened to her by a will order pharmacy she is to take her regular nebulize medications
[2020-03-08 17:07] VITALS: BP 150/68; TEMP 97.5
[2020-03-08] MEDS ORDERED: HYDROCODONE/APAP 10/325 TAB PO SCH (18:00)
[2020-03-08] MEDS ORDERED: Levofloxacin500mg IV 500 MG/100 ML BAG IV SCH (18:00)
[2020-03-08] MEDS ORDERED: carvediloL 12.5 MG TAB PO SCH (21:00)
[2020-03-08 21:14] LABS: Ferritin 32.7 ng/mL (8-388)
[2020-03-09] MEDS ORDERED: FUROSEMIDE 20 MG TABLET PO SCH (09:00)
[2020-03-09] MEDS ORDERED: HOME MED 1 EA UNK (Loratadine [Loratadine] 10 MG) PO SCH (09:00)
[2020-03-09] MEDS ORDERED: CHOLECALCIFEROL PO SCH (09:00)
[2020-03-09] MEDS ORDERED: HOME MED 1 EA UNK (Umeclidinium Brm/Vilanterol Tr [Anoro Ellipta 62.5-25 Mcg Inh] 1 EACH) IH SCH (09:00)
[2020-03-09] MEDS ORDERED: lisinopriL 20 MG TAB PO SCH (09:00)
[2020-03-09] MEDS ORDERED: LORATADINE 10 MG TAB PO SCH (09:00)
[2020-03-09] MEDS ORDERED: HOME MED 1 EA UNK (Lisinopril [Lisinopril] 40 MG) PO SCH (09:00)
== END 2020-03-08 17:50 | disposition home or self-care (01) ==
LOC: ER 13:14 → ERHOLD 17:49 → 4TH 19:46 → 2ND 03-08 06:08
PROVIDERS: ADMIT Family Medicine; ATTEND Family Medicine
DX: J44.1 Chronic obstructive pulmonary disease with (acute) exacerbation (principal); J18.9 Pneumonia, unspecified organism; R05 Cough; R06.02 Shortness of breath; Z20.828 Contact with and (suspected) exposure to other viral communicable diseases; D63.1 Anemia in chronic kidney disease; D50.9 Iron deficiency anemia, unspecified; I11.0 Hypertensive heart disease with heart failure; I50.32 Chronic diastolic (congestive) heart failure; I27.20 Pulmonary hypertension, unspecified; K21.9 Gastro-esophageal reflux disease without esophagitis; K44.9 Diaphragmatic hernia without obstruction or gangrene; G89.29 Other chronic pain; Z23 Encounter for immunization; Z99.81 Dependence on supplemental oxygen; Z79.899 Other long term (current) drug therapy; Z87.891 Personal history of nicotine dependence
CPT/HCPCS: 36415; 71045; 71275; 80048; 80076; 81003; 82607; 82728; 83605; 83735; 83880; 84145; 84484; 85014; 85018; 85025; 85610; 87040; 87070; 87077; 87186; 87205; 90471; 90670; 93005; 96365; 96366; 99285; C9113; G0378; J1650; J7512; Q9967; U0002

== ENCOUNTER 2020-03-21 21:20 | Emergency (ER) | payer OTHER ==
[2020-03-21 23:03] LABS: Absolute Lymphocytes (CBC) 1.3 K/uL (0.7-4.9)
[2020-03-21 23:06] LABS: Protime INR 0.97
[2020-03-21 23:07] LABS: Basophils % 0.6 % (0-1.3); Hematocrit 25.7 % (36.0-45.0); RBC Red Blood Cell Count 3.19 M/uL (3.86-4.86)
[2020-03-21] MEDS ORDERED: FENTANYL CITR 100 MCG/2 ML ONE (23:08)
[2020-03-21 23:22] LABS: ALT/SGPT 8 U/L (12-78); AST/SGOT 11 U/L (15-37); Albumin 2.9 g/dL (3.4-5.0); Alkaline Phosphatase 47 U/L (45-117); BUN Blood Urea Nitrogen 30 mg/dL (7-18); Bicarbonate 36 mmol/L (21-32); Bilirubin Direct 0.1 mg/dL (0-0.2); Bilirubin Total 0.5 mg/dL (0.2-1.0); CKMB Creatine Kinase MB < 1.0 ng/mL (0.3-3.6); Creatine Phosphokinase 22 U/L (26-192); Glucose Level 107 mg/dL (74-106); Lipase 37 U/L (73-393); Magnesium 2.3 mg/dL (1.8-2.4); NT PRO-BNP 666 pg/mL (<450); Potassium 4.9 mmol/L (3.5-5.1); Protein, Total 6.6 g/dL (6.4-8.2); Sodium Level 142 mmol/L (136-145); Troponin (Emerg Dept Use Only) < 0.02 ng/mL (0.0-0.045)
[2020-03-22] MEDS ORDERED: TRAMADOL HCL 50 MG TAB ONE (00:11)
[2020-03-22] MEDS ORDERED: HYDROCODONE/APAP 10/325 TAB ONE (00:18)
--- NOTE | 2020-03-22 01:00 | RAD REPORT ---
EXAM DESCRIPTION: CT - Thoracic Spine W/o Cont - 03/22/2020 12:47 am CLINICAL HISTORY: Fall, pain, radiculopathy PAIN COMPARISON: Spine Lumbar Wo Con dated 03/22/2020; Thoracic Spine Ap/Lat dated 11/06/2019; Lumbar Spine 3 Views dated 07/12/2019; Thoracic Spine Ap/Lat dated 07/12/2019 TECHNIQUE: Axial CT imaging through the thoracic spine and lumbar was performed with coronal and sag ittal re-formatted images. All CT scans are performed using dose optimization technique as appropriate and may include automated exposure control or mA/KV adjustment according to patient size. FINDINGS: Diffuse osteopenia is present. A mild compression fracture is present involving a lower th oracic vertebral body, suspected to be the T11 level. There is 10-15% loss of vertebral body height. A moderately severe compression fracture is present affecting the T12 vertebral body with pronounced kyphotic deformity. Mild compression fracture affects L1 with mild vertebral body height loss estimat ed at 10%. These fractures have a chronic appearance and had a similar in appearance on prior plain r adiographs. No paraspinal masses or hematoma. Emphysematous changes are present throughout the lungs with a moderate hiatal hernia. Punctate stone is present in the left kidney. IMPRESSION: Exaggerated lumbosacral kyphosis is present likely the result of multiple compression fr actures, which appear chronic in timeframe. If further assessment is clinically needed, MR imaging wo uld be advised for followup assessment.
--- NOTE | 2020-03-22 03:09 | ER ---
Nurse's Notes [facility] Name: Allison Vickers Age: 84 yrs Sex: Female : 1935 Arrival Date: 03/21/2020 Time: 21:26 Bed 8 Private MD: Diagnosis: Contusion of shoulder and upper arm;Contusion of lower back and pelvis;Skin avulsion Presentation: 03/21 21:27 Chief complaint: EMS states: PATIENT FELL TODAY AT 0500, FROM BED GOING TO THE BATHROOM. SLIPPED AND FELL ON HER RIGHT SIDE, HURTING HER RIGHT SHOULDER, RIGHT ARM, AND RIGHT LOWER BACK. DENIES HEAD INJURY, OR LOC. Coronavirus screen: Surgical mask placed on patient. Patient moved to private room, placed in contact and droplet isolation with eye protection until further assessment. Patient reports a cough. Patient reports shortness of breath or difficulty breathing. Patient denies measured and/or subjective temperature greater than 100.4F prior to today's visit. Patient denies travel on a cruise ship or to a country the [facility] currently lists as an affected area. Patient denies contact with known and/or suspected case of COVID-19. Ebola Screen: No symptoms or risks identified at this time. Initial Sepsis Screen: Does the patient meet any 2 criteria? RR > 20 per min. No. Patient's initial sepsis screen is negative. Does the patient have a suspected source of infection? Yes: Productive cough/pneumonia. Risk Assessment: Do you want to hurt yourself or someone else? Patient reports no desire to harm self or others. Onset of symptoms was March 21, 2020 at 05:00. 21:27 Acuity: JESUS 3 rv 21:27 Method Of Arrival: EMS: [facility] Triage Assessment: 21:30 General: Appears uncomfortable, Behavior is calm, cooperative. Pain: Complains of pain rv in anterior aspect of right shoulder and right low back. EENT: No signs and/or symptoms were reported regarding the EENT system. Neuro: Level of Consciousness is awake, alert, obeys commands, Oriented to person, place, time, situation. Cardiovascular: Patient's skin is warm and dry. Rhythm is sinus rhythm. Respiratory: Airway is patent Respiratory effort is labored, Respiratory pattern is tachypnea Breath sounds are coarse bilaterally. Derm: Skin is intact. Musculoskeletal: Range of motion: intact in all extremities, Swelling absent. Historical: - Allergies: 21:30 Clindamycin; rv 21:30 Codeine; rv - PMHx: 21:30 ADD/ADHD; Arthritis; carpal tunnel syndrome; chronic bronchitis; diverticulosis; hiatal rv hernia; Hypertension; IRON DEFICIENCY ANEMIA; Chronic pain; - PSHx: 21:30 BACK SURGERY; rv - Immunization history:: Adult Immunizations up to date. - Social history:: Smoking status: unknown. Screenin:31 Abuse screen: Denies threats or abuse. Denies injuries from another. Nutritional rv screening: No deficits noted. Tuberculosis screening: No symptoms or risk factors identified. Fall Risk Fall in past 12 months (25 points). Secondary diagnosis (15 points) impaired mobility, No IV (0 pts). Ambulatory Aid- Crutches/Cane/Walker (15 pts). Gait- Weak (10 pts.). Mental Status- Oriented to own ability (0 pts). Total Francisco Fall Scale indicates High Risk Score (45 or more points). Fall prevention measures have been instituted. Side Rails Up X 2 Frequent Obs/Assessments Occuring As available patient and family educated on Fall Prevention Program and Strategies. Assessment: 03/22 02:30 Reassessment: Patient and/or family updated on plan of care and expected duration. Pain rv level reassessed. Patient is alert, oriented x 3, equal unlabored respirations, skin warm/dry/pink. Patient states feeling better. Vital Signs: 03/21 21:27 BP 177 / 66; Pulse 88; Resp 23; Temp 98.8; Pulse Ox 89% on R/A; rv 22:54 BP 155 / 67; Pulse 80; Resp 20; Pulse Ox 100% on 3 lpm NC; rv 23:30 BP 114 / 72; Pulse 69; Resp 21; Pulse Ox 99% on 3 lpm NC; rv 03/22 00:30 BP 114 / 65; Pulse 70; Resp 19; Pulse Ox 98% on 3 lpm NC; rv 01:30 BP 135 / 64; Pulse 75; Resp 16; Pulse Ox 98% on R/A; rv 02:00 BP 118 / 71; Pulse 78; Resp 17; Pulse Ox 97% on R/A; rv 03:22 BP 120 / 76; Pulse 78; Resp 16; Temp 98.5; Pulse Ox 98% on R/A; rv ED Course: 03/21 21:26 Patient arrived in ED. rv 21:29 Triage completed. rv 21:31 Arm band placed on Patient placed in the treatment room, on a stretcher, Patient rv notified of wait time. 21:31 Patient has correct armband on for positive identification. Bed in low position. Side rv rails up X2. campus monitor on. Pulse ox on. NIBP on. 21:43 Hossein Owens RN is Primary Nurse. rv 21:45 Alex Stern MD is Attending Physician. tw4 22:42 XRAY Chest (1 view) In Process Unspecified. EDMS 22:43 XRAY Elbow RIGHT 2 view In Process Unspecified. EDMS 22:43 Hip Right 2 View In Process Unspecified. EDMS 22:43 Shoulder Right 2 View In Process Unspecified. EDMS 22:45 Inserted saline lock: 20 gauge in left antecubital area, using aseptic technique. Blood rv collected. 22:45 Initial lab(s) drawn, by me, sent to lab. First set of blood cultures drawn by me, EKG rv done, by ED staff, reviewed by Alex Stern MD Flu and/or RSV swab sent to lab. COVID-19 SWAB. 23:07 Second set of blood cultures drawn by me. rv 23:12 Notified Nurse Practitioner and/or Physician County Tax Ass[employer]or of a critical lab result(s), hgb sg 7.8. 03/22 00:12 Radiology exam delayed due to Waiting for patient to be given pain medication. kw1 00:48 CT Thoracic Spine Wo Cont In Process Unspecified. EDMS 00:48 CT Lumbar Spine Wo Con In Process Unspecified. EDMS 00:53 No provider procedures requiring assistance completed. rv 03:22 IV discontinued, intact, bleeding controlled, No redness/swelling at site. Pressure rv dressing applied. Administered Medications: 03/21 23:06 Drug: fentaNYL (PF) 25 mcg {Note: RASS 0.} Route: IVP; Site: left antecubital; rv 03/22 00:00 Follow up: Response: No adverse reaction; RASS: Alert and Calm (0) rv 00:13 Not Given (Patient Refused): traMADol 50 mg PO once; RASS on ADMIN: Combtv4, Very rv Agttd3, Agttd2, Rstlss1, AlertClm0, Drwsy-1, Lt Sdtn-2, Mod Sdtn-3, Dp Sdtn-4, UnArsble-5 00:13 Drug: HYDROcodone-acetaminophen 10 mg-325 mg 1 tabs {Note: RASS 0.} Route: PO; rv 02:29 Follow up: Response: No adverse reaction; Marked relief of symptoms; Pain is decreased; rv RASS: Alert and Calm (0) Outcome: 03:08 Discharge ordered by MD. [email or web address] 03:22 Discharged to home via wheelchair, with family. rv 03:22 Condition: good 03:22 Discharge instructions given to patient, family, Instructed on discharge instructions, follow up and referral plans. Demonstrated understanding of instructions, follow-up care. 03:23 Instructed on medication usage, Demonstrated understanding of medications, rv Prescriptions given X 1. 04:29 Patient left the ED. rv Addendum: 03/25/2020 18:07 Addendum: Other pt notified of negative COVID-19 swab results. Pt advised to remain in d m5 isolation until she is symptom free for 3 days and to return to the ED for worsening symptoms. Signatures: Dispatcher [employer] EDMS Katya Cruz RN RN dm5 Santosh Ojeda RN RN sg Clarisse Jones kw1 Alex Stern MD MD tw4 Hossein Owens, RN RN rv Corrections: (The following items were deleted from the chart) 03/21 21:43 21:27 Method Of Arrival: EMS: [facility] rv rv 23:07 22:45 Inserted saline lock: 20 gauge in right antecubital area, using aseptic rv technique. Blood collected. rv
--- NOTE | 2020-03-22 03:10 | EDPHYS ---
Physician Documentation [facility] Name: Allison Vickers Age: 84 yrs Sex: Female : 1935 Arrival Date: 03/21/2020 Time: 21:26 Bed 8 Private MD: ED Physician Alex Stern HPI: 03/22 01:45 This 84 yrs old Female presents to ER via EMS with complaints of fall right tw4 arm hip pain. 01:45 Details of fall: The patient fell from seated position, off the edge of a bed. Onset: tw4 The symptoms/episode began/occurred just prior to arrival, today. Associated injuries: The patient sustained right arm and right leg. Severity of symptoms: At their worst the symptoms were moderate, in the emergency department the symptoms are unchanged. Historical: - Allergies: 03/21 21:30 Clindamycin; rv 21:30 Codeine; rv - PMHx: 21:30 ADD/ADHD; Arthritis; carpal tunnel syndrome; chronic bronchitis; diverticulosis; hiatal rv hernia; Hypertension; IRON DEFICIENCY ANEMIA; Chronic pain; - PSHx: 21:30 BACK SURGERY; rv - Immunization history:: Adult Immunizations up to date. - Social history:: Smoking status: unknown. ROS: 03/22 01:45 Constitutional: Negative for fever, chills, and weight loss, Eyes: Negative for injury, tw4 pain, redness, and discharge, Cardiovascular: Negative for chest pain, palpitations, and edema, Respiratory: Negative for shortness of breath, cough, wheezing, and pleuritic chest pain, Abdomen/GI: Negative for abdominal pain, nausea, vomiting, diarrhea, and constipation. Skin: Negative for injury, rash, and discoloration, Neuro: Negative for headache, weakness, numbness, tingling, and seizure. MS/extremity: Positive for injury or acute deformity, decreased range of motion. Exam: 01:45 Constitutional: This is a well developed, well nourished patient who is awake, alert, tw4 and in no acute distress. Head/Face: Normocephalic, atraumatic. Chest/axilla: Normal chest wall appearance and motion. Nontender with no deformity. No lesions are appreciated. Cardiovascular: Regular rate and rhythm with a normal S1 and S2. No gallops, murmurs, or rubs. Normal PMI, no JVD. No pulse deficits. 01:45 Respiratory: Lungs have equal breath sounds bilaterally, clear to auscultation and percussion. No rales, rhonchi or wheezes noted. No increased work of breathing, no retractions or nasal flaring. Abdomen/GI: Soft, non-tender, with normal bowel sounds. No distension or tympany. No guarding or rebound. No evidence of tenderness throughout. 01:45 Neuro: Awake and alert, GCS 15, oriented to person, place, time, and situation. Cranial nerves II-XII grossly intact. Motor strength 5/5 in all extremities. Sensory grossly intact. Cerebellar exam normal. Normal gait. Psych: Awake, alert, with orientation to person, place and time. Behavior, mood, and affect are within normal limits. 01:45 Musculoskeletal/extremity: Extremities: noted in the right bicep and dorsal aspect of right forearm: abrasion, ecchymosis, laceration. Vital Signs: 03/21 21:27 BP 177 / 66; Pulse 88; Resp 23; Temp 98.8; Pulse Ox 89% on R/A; rv 22:54 BP 155 / 67; Pulse 80; Resp 20; Pulse Ox 100% on 3 lpm NC; rv 23:30 BP 114 / 72; Pulse 69; Resp 21; Pulse Ox 99% on 3 lpm NC; rv 03/22 00:30 BP 114 / 65; Pulse 70; Resp 19; Pulse Ox 98% on 3 lpm NC; rv 01:30 BP 135 / 64; Pulse 75; Resp 16; Pulse Ox 98% on R/A; rv 02:00 BP 118 / 71; Pulse 78; Resp 17; Pulse Ox 97% on R/A; rv 03:22 BP 120 / 76; Pulse 78; Resp 16; Temp 98.5; Pulse Ox 98% on R/A; rv MDM: 03/21 23:55 Patient medically screened. tw4 03/22 03:05 Differential diagnosis: abrasion, fracture, laceration. Data reviewed: vital signs, tw4 nurses notes. Data reviewed: lab test result(s), cardiac enzymes, CBC, electrolytes, radiologic studies, CT scan. Data interpreted: Pulse oximetry: Interpretation: normal. Counseling: I had a detailed discussion with the patient and/or guardian regarding: the historical points, exam findings, and any diagnostic results supporting the discharge/admit diagnosis, lab results, radiology results. Special discussion: I discussed with the patient/guardian in detail that at this point there is no indication for admission to the hospital. It is understood, however, that if the symptoms persist or worsen the patient needs to return immediately for re-evaluation. 03/21 21:46 Order name: COVID-19 [facility] 03/21 21:46 Order name: Flu [facility] 03/21 21:46 Order name: Strep [facility] 03/21 21:46 Order name: Blood Culture Adult (2) [facility] 03/21 21:46 Order name: BMP [facility] 03/21 21:46 Order name: CBC with Diff [facility] 03/21 21:46 Order name: Ckmb [facility] 03/21 21:46 Order name: CPK [facility] 03/21 21:46 Order name: D-Dimer [facility] 03/21 21:46 Order name: Hepatic Function [facility] 03/21 21:46 Order name: Lipase [facility] 03/21 21:46 Order name: Magnesium [facility] 03/21 21:46 Order name: NT PRO-BNP [facility] 03/21 21:46 Order name: PT-INR [facility] 03/21 21:46 Order name: Ptt, Activated [facility] 03/21 21:46 Order name: Troponin (emerg Dept Use Only) [facility] 03/21 21:46 Order name: CORONAVIRUS [facility] 03/21 21:46 Order name: Influenza Screen (A [facility] 03/21 21:46 Order name: Group A Streptococcus Rapid Sc [facility] 03/21 21:46 Order name: Blood Culture [facility] 03/21 21:53 Order name: XRAY Chest (1 view) 03/21 21:53 Order name: XRAY Elbow RIGHT 2 view 03/21 22:25 Order name: Hip Right 2 View [facility] 03/21 22:25 Order name: Shoulder Right 2 View [facility] 03/21 23:41 Order name: Throat Culture [facility] 03/21 23:56 Order name: CT Thoracic Spine Wo Cont [facility] 03/21 23:56 Order name: CT Lumbar Spine Wo Con [facility] 03/21 21:46 Order name: Document PUI#; Complete Time: 22:55 [facility] 03/21 21:46 Order name: Droplet/Contact Precautions; Complete Time: 22:55 [facility] 03/21 21:46 Order name: Labs collected and sent; Complete Time: :55 tw4 03/21 21:46 Order name: O2 Per Protocol; Complete Time: 22:55 tw4 03/21 21:46 Order name: Cardiac monitoring; Complete Time: 22:55 tw4 03/21 21:46 Order name: IV Saline Lock; Complete Time: 22:55 tw4 03/21 21:46 Order name: Labs collected and sent; Complete Time: :55 tw4 03/21 21:46 Order name: O2 Per Protocol; Complete Time: 22:55 tw4 03/21 21:46 Order name: O2 Sat Monitoring; Complete Time: :55 tw4 EC:37 Rhythm is regular. QRS [place] is Normal. [place] interval is normal. QRS interval is normal. tw4 QT interval is normal. No Q waves. T waves are Normal. No ST changes noted. Clinical impression: Normal ECG. Interpreted by me. Reviewed by me. Administered Medications: 03/21 23:06 Drug: fentaNYL (PF) 25 mcg {Note: RASS 0.} Route: IVP; Site: left antecubital; rv 03/22 00:00 Follow up: Response: No adverse reaction; RASS: Alert and Calm (0) rv 00:13 Not Given (Patient Refused): traMADol 50 mg PO once; RASS on ADMIN: Combtv4, Very rv Agttd3, Agttd2, Rstlss1, AlertClm0, Drwsy-1, Lt Sdtn-2, Mod Sdtn-3, Dp Sdtn-4, UnArsble-5 00:13 Drug: HYDROcodone-acetaminophen 10 mg-325 mg 1 tabs {Note: RASS 0.} Route: PO; rv 02:29 Follow up: Response: No adverse reaction; Marked relief of symptoms; Pain is decreased; rv RASS: Alert and Calm (0) Disposition: 03/22/20 03:08 Discharged to Home. Impression: Contusion of shoulder and upper arm, Contusion of lower back and pelvis, Skin avulsion. - Condition is Stable. - Discharge Instructions: Spinal Compression Fracture, Contusion, Deep Skin Avulsion. - Prescriptions for Tramadol 50 mg Oral Tablet - take 1 tablet by ORAL route every 8 hours as needed; 12 tablet. - Medication Reconciliation Form, Thank You Letter, Antibiotic Education, Prescription Opioid Use form. - Follow up: Private Physician; When: Upon discharge from the Emergency Department; Reason: Recheck today's complaints, Continuance of care, Re-evaluation by your physician. - Problem is new. - Symptoms have improved. Signatures: Dispatcher [employer] [facility] Alex Stern MD MD tw4 Hossein Owens RN RN rv Corrections: (The following items were deleted from the chart) 03/21 22:25 21:54 Hip Right 1 View+RAD.RAD.BRZ ordered. [facility] 22:25 21:54 Shoulder 1 View+RAD.RAD.BRZ ordered. [facility] 03/22 04:29 03:08 03/22/2020 03:08 Discharged to Home. Impression: Contusion of shoulder and upper rv arm; Contusion of lower back and pelvis; Skin avulsion. Condition is Stable. Forms are Medication Reconciliation Form, Thank You Letter, Antibiotic Education, Prescription Opioid Use. Follow up: Private Physician; When: Upon discharge from the Emergency Department; Reason: Recheck today's complaints, Continuance of care, Re-evaluation by your physician. Problem is new. Symptoms have improved. tw4
[2020-03-22 04:55] VITALS: BP 120/76; TEMP 98.5; O2SAT 98
--- NOTE | 2020-03-22 08:50 | RAD REPORT ---
EXAM DESCRIPTION: RAD - Chest Single View - 03/21/2020 10:42 pm CLINICAL HISTORY: COUGH, fall, chest pain COMPARISON: Portable March 07 TECHNIQUE: AP portable chest image was obtained 03/21/2020 10:42 pm . FINDINGS: No focal pulmonary contusion. Patient has extensive chronic interstitial lung disease. Pat tern is not substantially different. Early interstitial edema or infiltrate can easily be masked by t he chronic pattern. Large hiatal hernia is present. Heart and vasculature are normal. No measurable p leural effusion and no pneumothorax. No acute bony abnormality seen. No acute aortic findings suspect ed. IMPRESSION: No pneumothorax, pulmonary contusion or other traumatic injury to the chest identifiable . Patient has very extensive underlying interstitial lung disease which could easily mask early interst itial edema or infiltrate.
--- NOTE | 2020-03-22 08:51 | RAD REPORT ---
EXAM DESCRIPTION: Shoulder Right 2 View - 03/21/2020 10:43 pm CLINICAL HISTORY: PAIN, fall with right shoulder pain COMPARISON: No comparisons TECHNIQUE: Internal and external rotation views of the right shoulder were obtained. FINDINGS: There is no fracture or dislocation. AC joint is normal in appearance. Mild degenerative change present at the AC joint and undersurface of the acromion. Minimal capsular hypertrophy and josette cifications superiorly. Minimal spur projects from the acromion at the AC joint. Acromial humeral leslie nt space is normal range. No gross scapula fracture seen. Scapula is not fully assessed on this exami nation. IMPRESSION: Mild degenerative change the right shoulder joint with no fracture or acute finding. No gross scapula abnormality seen. Assessment is limited.
--- NOTE | 2020-03-22 08:52 | RAD REPORT ---
EXAM DESCRIPTION: RAD - Hip Right 2 View - 03/21/2020 10:43 pm CLINICAL HISTORY: PAIN, fall with hip pain COMPARISON: No comparisons FINDINGS: AP and frog-leg views of the right hip were obtained. There is no fracture or dislocation. No AVN or focal head abnormality. Partially imaged right hemipel vis shows no gross abnormality. Overall assessment is limited by underlying osteopenia and body habitus affects. IMPRESSION: Negative right hip examination for acute or significant findings.
--- NOTE | 2020-03-22 08:54 | RAD REPORT ---
EXAM DESCRIPTION: RAD - Elbow Right 2 View - 03/21/2020 10:42 pm CLINICAL HISTORY: PAIN, fall COMPARISON: No comparisons FINDINGS: No fracture is identified and no elevated posterior fat pad. There is no dislocation or pe riosteal reaction noted. No foreign body in the soft tissues. No other significant finding. IMPRESSION: Negative right elbow examination.
--- OUTSIDE RECORDS SUMMARY | 2020-03-22 12:58 | XMS REPORT | Clinical Summary ---
:1935 Author Organization [facility] Address [address] [place] [address] Care Team Providers Name Role Phone Jose Roberto Nesbitt MD Primary Care Provider [phone] Allergies Active Allergy Reactions Severity Noted Date Comments Clindamycin Other (See Comments) 03/21/2018 Pt stat es she was told not to take by PCP Codeine Other (See Comments) 03/21/2018 Childho od allergy Medications Medication Sig Dispensed Refills Start Date End Date Status HYDROcodone-acetaminoph Take 1 tablet by 0 Active en (NORCO) 7.5-325 mg mouth. per tablet gabapentin (NEURONTIN) 0 04/17/2018 Active 300 mg capsule clorazepate (TRANXENE) 0 04/01/2018 Active 7.5 MG tablet PROAIR HFA 90 0 02/03/2018 Activ e mcg/actuation inhaler lisinopril 0 04/01/2018 Active (PRINIVIL,ZESTRIL) 20 mg tablet metoprolol succinate XL 0 02/03/2018 Active (TOPROL-XL) 50 mg 24 hr tablet pantoprazole (PROTONIX) 0 04/01/2018 Active 40 MG EC tablet tiZANidine (ZANAFLEX) 4 0 03/21/2018 Active MG tablet traMADol (ULTRAM) 50 mg 0 04/17/2018 Active tablet Active Problems No known active problems Social History Tobacco Use Types Packs/Day Years Used Date Current Every Day Smoker Cigarettes 1 30 Alcohol Use Drinks/Week oz/Week Comments No Sex Assigned at Date Recorded Not on file Job Start Date Occupation Industry Not on file Not on file Not on file Travel History Travel Start Travel End No recent travel history available. Last Filed Vital Signs Not on file Plan of Treatment Health Maintenance Due Date Last Done Comments SHINGLES VACCINES (#1) 1987 65+ PNEUMOCOCCAL VACCINE (1 of 2 - PCV13) 2002 INFLUENZA VACCINE 05/03/2020 Results Not on fileafter 03/22/2019 Insurance Payer Benefit Plan / Subscriber ID Effective Phone Address T ype Group Dates COMMERCIAL MISC MISC COMMERCIAL xxxxxxxxx 2017-Pres Commercial ent MEDICARE MEDICARE PART A xxxxxxxxxx 2002-Pres [place], [place] Medicare AND B ent Advance Directives For more information, please contact: [phone] Type Date Recorded Patient Web Analyst Explanati on Advance Directives, Living Will and Medical Power of Load Tester
--- OUTSIDE RECORDS SUMMARY | 2020-03-22 12:59 | XMS REPORT | Continuity of Care Document ---
:1935 Author Organization [facility] t Address [address] [place] [address] Care Team Providers Name Role Phone Delicia LOPEZ Primary Care Physician Pob, Lab Main Attending Clinician Unavailable Problems This patient has no known problems. Allergies, Adverse Reactions, Alerts Allergy Allergy Status Severity Reaction(s) Onset Inactive Treating Comm ents Source Name Type Date Date Clinician Sisi Sears Active Other (See 0 [facility] ty to Comments) - she was Method i adverse 00:00: told not st reaction 00 to take s to by PCP drug Codeine Propensi Active Other (See Childhood [place] ty to Comments) - allergy Method i adverse 00:00: st reaction 00 s to drug Social History Social Habit Start Date Stop Date Quantity Comments Source History of tobacco Cigarette Smoker [place] use Voodoo Sex Assigned At [place] V[facility]oo Cigarettes smoked 2018-04-18 2018-04-18 [place] current (pack per 00:00:00 00:00:[address] day) - Reported Cigarette 2018-04-18 2018-04-18 [place] pack-years 00:00:00 00:00:00 Voodoo Alcohol intake 2018-04-18 2018-04-18 Current [place] 00:00:00 00:00:00 non-drinker of Voodoo alcohol (finding) Smoking Status Start Date Stop Date Source Current every day smoker 2018-04-18 00:00:00 Lolly we[place] Voodoo Medications Ordered Filled Start Stop Current Ordering Indication Dosage Frequency Signature Comments Components Source Medication Medication Date Date Medication? Clinician (SIG) Name Name HYDROcodone Yes 1{tbl} Take 1 [place] -acetaminop 7-17 tablet by Met lorna sosa (NORCO) 18:40: mouth. st 7.5-325 mg 21 per tablet gabapentin Yes [place] (NEURONTIN) 7-16 Methodi 300 mg 00:00: st capsule 00 traMADol Yes [place] (ULTRAM) 50 7-16 [facility] mg tablet 00:00: st 00 clorazepate Yes Nella huizar (TRANXENE) 6-30 Methodi 7.5 MG 00:00: st tablet 00 lisinopril Yes [place] (PRINIVIL,Z 6-30 Methodi ESTRIL) 20 00:00: st mg tablet 00 pantoprazol Yes Nella huizar e 6-30 Method[facility] (PROTONIX) 00:00: st 40 MG EC 00 tablet tiZANidine Yes [place] (ZANAFLEX) 6-19 Methodi 4 MG tablet 00:00: st 00 PROAIR HFA Yes [place] 90 5-04 Methodi mcg/actuati 00:00: st on inhaler 00 metoprolol Yes [place] succinate 5-04 Method[facility] XL 00:00: st (TOPROL-XL) 00 50 mg 24 hr tablet Procedures This patient has no known procedures. Plan of Care Planned Activity Planned Date Details Comments Source Future Scheduled 2020-05-03 INFLUENZA VACCINE Nella huizar Voodoo Test 00:00:00 [code = INFLUENZA VACCINE] Future Scheduled 2002 65+ PNEUMOCOCCAL Hank Voodoo Test 00:00:00 VACCINE (1 of 2 - PCV13) [code = 65+ PNEUMOCOCCAL VACCINE (1 of 2 - PCV13)] Future Scheduled 1987 SHINGLES VACCINES (#1) H suri Voodoo Test 00:00:00 [code = SHINGLES VACCINES (#1)] Encounters Start End Encounter Admission Attending Care Care Encounter Source Date/Time Date/Time Type Type Clinicians Facility Department ID 2019-12-20 2019-12-20 Crude Unit Operator James Maki [facility] [id number] 14:10:01 14:34:05 Visit Lab Main [place] [id number] [place] [id number] Professio [phone] [facility] [address] Building Results This patient has no known results.
== END 2020-03-22 04:29 | disposition home or self-care (01) ==
LOC: ER 21:20
DX: S40.021A Contusion of right upper arm, initial encounter (principal); S30.0XXA Contusion of lower back and pelvis, initial encounter; S51.801A Unspecified open wound of right forearm, initial encounter; Z20.828 Contact with and (suspected) exposure to other viral communicable diseases; W06.XXXA Fall from bed, initial encounter; Y93.9 Activity, unspecified; Y92.9 Unspecified place or not applicable; Z88.1 Allergy status to other antibiotic agents; Z88.5 Allergy status to narcotic agent; I10 Essential (primary) hypertension
CPT/HCPCS: 93005; 87040 ×2; 87070; 85025; 80048; 36415; 83735; 82550; 85610; 85379; 80076; 87081; 85730; 84484; 82553; 83690; 83880; 87804 ×2; 72131; 72128; 71045; 73502; 73070; 73030; 96374; 99285; U0001; J3010

== ENCOUNTER 2020-04-28 09:01 | Observation (INO) | payer OTHER ==
--- OUTSIDE RECORDS SUMMARY | 2020-04-28 10:28 | XMS REPORT | Clinical Summary ---
:1935 Author Organization [facility] Address [address] [place] [address] Care Team Providers Name Role Phone Jose Roberto Nesbitt MD Primary Care Provider [phone] Allergies Active Allergy Reactions Severity Noted Date [...] INFLUENZA VACCINE 05/03/2020 Results Not on fileafter 04/28/2019 Insurance Payer Benefit Plan / Subscriber ID Effective Phone Address T ype Group Dates COMMERCIAL MISC MISC COMMERCIAL xxxxxxxxx 2017-Pres Commercial ent MEDICARE MEDICARE PART A xxxxxxxxxx 2002-Pres [place], [place] Medicare AND B ent Advance Directives For more information, please contact: [phone] Type Date Recorded Patient Mold Presser Explanati on Advance Directives, Living Will and 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
--- OUTSIDE RECORDS SUMMARY | 2020-04-28 10:28 | XMS REPORT | Continuity of Care Document ---
:1935 Author Organization [facility] t Address [address] [place] [address] Care Team Providers Name Role Phone Delicia LOPEZ Primary Care Physician Pob, Lab Main Attending Clinician Unavailable Problems This patient has no known problems. Allergies, Adverse Reactions, Alerts Allergy Allergy Status Severity Reaction(s) Onset Inactive Treating Comm ents Source Name Type Date Date Clinician Sisi Sears Active Other (See 0 [facility] ty to Comments) - she was Method i adverse 00:00: told not st reaction 00 to take s to by PCP drug Codeine Propensi Active Other (See [facility] ty to Comments) - allergy Method i adverse 00:00: st reaction 00 s to drug Social History Social Habit Start Date Stop Date Quantity Comments Source History of tobacco Cigarette Smoker [place] use Shinto Sex Assigned At [place] Shinto Cigarettes smoked 2018-04-18 2018-04-18 [place] current (pack per 00:00:00 00:00:[address] day) - Reported Cigarette 2018-04-18 2018-04-18 [place] pack-years 00:00:00 00:00:00 Shinto Alcohol intake 2018-04-18 2018-04-18 Current [place] 00:00:00 00:00:00 non-drinker of Shinto alcohol (finding) Smoking Status Start Date Stop Date Source Current every day smoker 2018-04-18 00:00:00 Lolly weir Shinto Medications Ordered Filled Start Stop Current Ordering [...] 40 MG EC 00 tablet tiZANidine Yes [place] (ZANAFLEX) 6-19 Methodi 4 MG tablet 00:00: st 00 PROAIR HFA Yes [place] 90 5-04 Methodi mcg/actuati 00:00: st on inhaler 00 metoprolol Yes [place] succinate 5-04 Methodi XL 00:00: st (TOPROL-XL) 00 50 mg 24 hr tablet Procedures This patient has no known procedures. Plan of Care Planned Activity Planned Date Details Comments Source Future Scheduled 2020-05-03 INFLUENZA VACCINE Nella huizar [facility]into Test 00:00:00 [code = INFLUENZA VACCINE] Future Scheduled 2002 65+ PNEUMOCOCCAL [place] [facility] Test 00:00:00 VACCINE (1 of 2 - PCV13) [code = 65+ PNEUMOCOCCAL VACCINE (1 of 2 - PCV13)] Future Scheduled 1987 SHINGLES VACCINES (#1) [place] [facility] Test 00:00:00 [code = SHINGLES VACCINES (#1)] Encounters Start End Encounter Admission Attending Care Care Encounter Source Date/Time Date/Time Type Type Clinicians Facility Department ID 2019-12-20 2019-12-20 Reed Maker James Maki [facility] [id number] 14:10:01 14:34:05 Visit Lab Main [place] [id number] [place] [id number] Professio [phone] [facility] [address] Building Results This patient has no known results.
--- NOTE | 2020-04-28 11:24 | RAD REPORT ---
EXAM DESCRIPTION: RAD - Chest Single View - 04/28/2020 10:27 am CLINICAL HISTORY: Cough;COPD;Dyspnea COMPARISON: Portable March 21, 2020 TECHNIQUE: AP portable chest image was obtained 04/28/2020 10:27 am . FINDINGS: Patient has very extensive interstitial lung disease. Pattern may be fractionally increase d in the right upper lobe. No mass lesion identified. Fullness of the right hilum has not changed. He art and vasculature are normal. No measurable pleural effusion and no pneumothorax. No acute bony abn ormality seen. No acute aortic findings suspected. IMPRESSION: Extensive baseline interstitial pattern with a slight increase in the right apex. Early or mild right upper lobe pneumonia superimposed on chronic lung disease is suspected.
[2020-04-28 11:39] LABS: Absolute Lymphocytes (CBC) 1.6 K/uL (0.7-4.9); Basophils % 0.8 % (0-1.3); Hematocrit 29.5 % (36.0-45.0); Lymphocytes % 17.9 % (15.3-44.8); MPV 8.3 fL (7.6-11.3)
[2020-04-28 11:55] LABS: Protime INR 0.9
[2020-04-28 12:00] LABS: C-Reactive Protein 76.9 mg/L (<3.00); Ferritin 28.3 ng/mL (8-388); Potassium 4.9 mmol/L (3.5-5.1); Troponin (Emerg Dept Use Only) 0.05 ng/mL (0.0-0.045)
--- NOTE | 2020-04-28 12:11 | ER ---
Nurse's Notes [facility] Name: Allison Vickers Age: 85 yrs Sex: Female : 1935 Arrival Date: 04/28/2020 Time: 09:13 Bed 19 Private MD: Diagnosis: Pneumonia, unspecified organism;Chronic obstructive pulmonary disease with acute lower respiratory infection;Chronic obstructive pulmonary disease with (acute) exacerbation Presentation: 04/28 09:13 Chief complaint: EMS states: Productive cough x 5 days, had a little blood with cough jl7 this morning so pt called EMS. Pt uses home O2 via NC at 2 lpm. Coronavirus screen: Patient reports a cough. Patient denies shortness of breath or difficulty breathing. Patient denies measured and/or subjective temperature greater than 100.4F prior to today's visit. Patient denies travel on a cruise ship or to a country the [facility] currently lists as an affected area. Patient denies contact with known and/or suspected case of COVID-19. Patient instructed to continue to wear a mask when interacting with others. Patient moved to private room, placed in contact and droplet isolation with eye protection until further assessment. Prior COVID test collected on: x 2 or 3 weeks results are located within the EHR/EMR. Ebola Screen: No symptoms or risks identified at this time. Initial Sepsis Screen: Does the patient meet any 2 criteria? No. Patient's initial sepsis screen is negative. Does the patient have a suspected source of infection? Yes: Productive cough/pneumonia. Risk Assessment: Do you want to hurt yourself or someone else? Patient reports no desire to harm self or others. Onset of symptoms was April 23, 2020. Care prior to arrival: None. Transition of care: patient was not received from another setting of care. 09:13 Method Of Arrival: EMS: [facility] jl7 09:13 Acuity: JESUS 3 jl7 Triage Assessment: 09:21 General: Appears in no apparent distress. uncomfortable, Behavior is calm, cooperative, jl7 appropriate for age. Pain: Denies pain. EENT: No signs and/or symptoms were reported regarding the EENT system. Neuro: Level of Consciousness is awake, alert, obeys commands, Oriented to person, place, time, situation. Cardiovascular: Patient's skin is warm and dry. Respiratory: Reports cough that is productive, Airway is patent Respiratory effort is even, unlabored, Respiratory pattern is regular, symmetrical, Audible congestion noted without auscultation Onset: The symptoms/episode began/occurred gradually, the patient has moderate shortness of breath. GI: No signs and/or symptoms were reported involving the gastrointestinal system. : No signs and/or symptoms were reported regarding the genitourinary system. Derm: Skin is pink, warm \T\ dry. Musculoskeletal: No signs and/or symptoms reported regarding the musculoskeletal system. Historical: - Allergies: :21 Clindamycin; jl7 09:21 Codeine; jl7 - Home Meds: :21 ProAir HFA 90 mcg/actuation inhalation HFAA 2 puffs every 6 hours [Active]; Vitamin D jl7 Oral [Active]; gabapentin 300 mg Oral cap 1 cap 3 times per day [Active]; hydrocodone-acetaminophen 10-325 mg Oral tab 1 tab every 6 hours [Active]; loratadine 10 mg Oral TbDL 1 tab once daily [Active]; lisinopril 40 mg Oral tab 1 tab once daily [Active]; carvedilol 12.5 mg Oral tab 1 tab 2 times per day [Active]; pantoprazole 40 mg Oral TbEC 1 tab once daily [Active]; furosemide 20 mg Oral tab 1 tab once daily [Active]; - PMHx: :21 ADD/ADHD; Arthritis; carpal tunnel syndrome; chronic bronchitis; Chronic pain; jl7 diverticulosis; hiatal hernia; Hypertension; IRON DEFICIENCY ANEMIA; - Immunization history:: Adult Immunizations up to date. - Social history:: Smoking status: Patient/guardian denies using tobacco, the patient reports quitting approximately 2 years ago. - Family history:: not pertinent. - Hospitalizations: : No recent hospitalization is reported. Screenin:15 Abuse screen: Denies threats or abuse. Denies injuries from another. Nutritional jl7 screening: No deficits noted. Tuberculosis screening: No symptoms or risk factors identified. Fall Risk IV access (20 points). Total Francisco Fall Scale indicates No Risk (0-24 pts). Assessment: 09:15 General: See triage assessment. jl7 10:15 Reassessment: Patient appears in no apparent distress at this time. Patient and/or jl7 family updated on plan of care and expected duration. Pain level reassessed. Patient is alert, oriented x 3, equal unlabored respirations, skin warm/dry/pink. 11:30 Reassessment: Patient appears in no apparent distress at this time. No changes from jl7 previously documented assessment. Patient and/or family updated on plan of care and expected duration. Pain level reassessed. Patient is alert, oriented x 3, equal unlabored respirations, skin warm/dry/pink. 12:40 Reassessment: Pt reports severe back pain, rated 10/10, from old injury, reports taking jl7 Bunnell 10 mg at home, requesting pain medication. ERD notified, VO for Bunnell 10 mg PO. 14:08 Reassessment: Patient appears in no apparent distress at this time. Patient and/or jl7 family updated on plan of care and expected duration. Pain level reassessed. Patient is alert, oriented x 3, equal unlabored respirations, skin warm/dry/pink. Patient states feeling better. Patient states symptoms have improved. 14:11 Reassessment: Pt's [phone]. jl7 20:02 Cardiovascular: Rhythm is regular. wh Vital Signs: 09:13 BP 150 / 69; Pulse 74; Resp 17; Temp 98.2; Pulse Ox 100% on 2 lpm NC; Pain 0/10; jl7 10:15 BP 135 / 85; Pulse 74; Resp 21 S; Pulse Ox 100% on 2 lpm NC; jl7 11:30 BP 150 / 54; Pulse 75; Resp 17; Pulse Ox 100% ; jl7 12:00 BP 147 / 70; Pulse 93; Resp 22 S; Pulse Ox 100% on 2 lpm NC; jl7 12:30 BP 168 / 55; Pulse 92; Resp 25; Pulse Ox 96% on 2 lpm NC; jl7 13:30 BP 157 / 93; Pulse 84; Resp 23; Pulse Ox 100% on 2 lpm NC; jl7 14:30 BP 132 / 55; Pulse 70; Resp 21; Pulse Ox 100% 2 lpm ; jl7 15:30 BP 159 / 89; Pulse 79; Resp 19; Pulse Ox 100% on 2 lpm NC; jl7 16:30 BP 152 / 92; Pulse 80; Resp 21; Pulse Ox 97% on 2 lpm NC; jl7 17:30 BP 146 / 64; Pulse 71; Resp 20 S; Pulse Ox 100% on 2 lpm NC; jl7 20:02 BP 141 / 55; Pulse 67; Resp 16; Pulse Ox 100% on R/A; wh ED Course: 09:13 Patient arrived in ED. jl7 09:15 Chin Allan MD is Attending Physician. rn 09:15 Patient has correct armband on for positive identification. Placed in gown. Bed in low jl7 position. Call light in reach. Side rails up X2. campus monitor on. Pulse ox on. NIBP on. Warm blanket given. 09:17 Triage completed. jl7 09:21 Arm band placed on right wrist. jl7 09:23 Bo Colón, SAMANTHA is Primary Nurse. jl7 09:45 Inserted saline lock: 20 gauge in right wrist, using aseptic technique. jl7 10:25 Inserted saline lock: 22 gauge in right antecubital area, using aseptic technique. jl7 Blood collected. 10:27 CXR XRAY In Process Unspecified. EDMS 10:27 Initial lab(s) drawn, by me, sent to lab. First set of blood cultures drawn by in, EKG jl7 done, by ED staff, reviewed by Chin Allan MD COVID-19 swab sent to lab. 12:10 Sanchez Caruso MD is Hospitalizing Provider. rn 12:25 CT Chest For PE Angio In Process Unspecified. EDMS 18:00 No provider procedures requiring assistance completed. Patient admitted, IV remains in jl7 place. intact, No redness/swelling at site. Administered Medications: 12:45 Drug: Decadron - Dexamethasone 10 mg Route: IVP; Site: right antecubital; jl7 13:30 Follow up: Response: No adverse reaction jl7 12:45 Drug: Bunnell 10 mg-325 mg 1 tabs Route: PO; jl7 14:04 Follow up: Response: No adverse reaction; Pain is decreased jl7 Outcome: 12:10 Decision to Hospitalize by Provider. rn 18:00 Admitted to ER Hold. Please see [facility] for further documentation. jl7 18:00 Condition: stable 18:00 Discharge instructions given to patient, family, Instructed on the need for admit, Demonstrated understanding of instructions. 20:01 Admitted to Med/surg accompanied by tech, via stretcher, room 211, with oxygen, with chart, Report called to Alexis SINGH 20:01 Condition: stable 20:01 Instructed on the need for admit. 20:22 Patient left the ED. wh Signatures: Dispatcher [employer] Chin Chavez MD MD rn Leal, Jahala, RN RN jlNamrata Hammond
--- NOTE | 2020-04-28 12:11 | EDPHYS ---
Physician Documentation [facility] Name: Allison Vickers Age: 85 yrs Sex: Female : 1935 Arrival Date: 04/28/2020 Time: 09:13 Bed 19 Private MD: ED Physician Chin Allan HPI: 04/28 12:07 This 85 yrs old Female presents to ER via EMS with complaints of Productive rn Cough. 12:07 The patient or guardian reports cough, difficulty breathing. rn 12:07 Onset: The symptoms/episode began/occurred 5 day(s) ago. Severity of symptoms: At their rn worst the symptoms were mild, in the emergency department the symptoms are unchanged. The patient has experienced similar episodes in the past. Reports COPD, but last 5 days increased cough, productive with a little blood, + increased sob. On 2 L home O2. No recent abx. . Historical: - Allergies: 09:21 Clindamycin; jl7 09:21 Codeine; jl7 - Home Meds: 09:21 ProAir HFA 90 mcg/actuation inhalation HFAA 2 puffs every 6 hours [Active]; Vitamin D jl7 Oral [Active]; gabapentin 300 mg Oral cap 1 cap 3 times per day [Active]; hydrocodone-acetaminophen 10-325 mg Oral tab 1 tab every 6 hours [Active]; loratadine 10 mg Oral TbDL 1 tab once daily [Active]; lisinopril 40 mg Oral tab 1 tab once daily [Active]; carvedilol 12.5 mg Oral tab 1 tab 2 times per day [Active]; pantoprazole 40 mg Oral TbEC 1 tab once daily [Active]; furosemide 20 mg Oral tab 1 tab once daily [Active]; - PMHx: 09:21 ADD/ADHD; Arthritis; carpal tunnel syndrome; chronic bronchitis; Chronic pain; jl7 diverticulosis; hiatal hernia; Hypertension; IRON DEFICIENCY ANEMIA; - Immunization history:: Adult Immunizations up to date. - Social history:: Smoking status: Patient/guardian denies using tobacco, the patient reports quitting approximately 2 years ago. - Family history:: not pertinent. - Hospitalizations: : No recent hospitalization is reported. ROS: 12:07 Constitutional: Negative for fever, chills, and weight loss, Eyes: Negative for injury, rn pain, redness, and discharge, Cardiovascular: Negative for chest pain, palpitations, and edema, Respiratory: + cough and sob Abdomen/GI: Negative for abdominal pain, nausea, vomiting, diarrhea, and constipation, MS/Extremity: Negative for injury and deformity, Skin: Negative for injury, rash, and discoloration, Neuro: Negative for headache, numbness, tingling, and seizure. Exam: 12:07 Constitutional: Thin female, + mild tachypnea Head/Face: Normocephalic, atraumatic. fabric pattern grader: Regular rate and rhythm, No pulse deficits. Respiratory: + bilateral crackles with mild tachypnea Abdomen/GI: soft, non-tender Skin: Warm, dry MS/ Extremity: Pulses equal, no cyanosis. Neurovascular intact. Full, normal range of motion. Equal circumference. Neuro: Awake and alert, GCS 15, oriented to person, place, time, and situation. Vital Signs: 09:13 BP 150 / 69; Pulse 74; Resp 17; Temp 98.2; Pulse Ox 100% on 2 lpm NC; Pain 0/10; jl7 10:15 BP 135 / 85; Pulse 74; Resp 21 S; Pulse Ox 100% on 2 lpm NC; jl7 11:30 BP 150 / 54; Pulse 75; Resp 17; Pulse Ox 100% ; jl7 12:00 BP 147 / 70; Pulse 93; Resp 22 S; Pulse Ox 100% on 2 lpm NC; jl7 12:30 BP 168 / 55; Pulse 92; Resp 25; Pulse Ox 96% on 2 lpm NC; jl7 13:30 BP 157 / 93; Pulse 84; Resp 23; Pulse Ox 100% on 2 lpm NC; jl7 14:30 BP 132 / 55; Pulse 70; Resp 21; Pulse Ox 100% 2 lpm ; jl7 15:30 BP 159 / 89; Pulse 79; Resp 19; Pulse Ox 100% on 2 lpm NC; jl7 16:30 BP 152 / 92; Pulse 80; Resp 21; Pulse Ox 97% on 2 lpm NC; jl7 17:30 BP 146 / 64; Pulse 71; Resp 20 S; Pulse Ox 100% on 2 lpm NC; jl7 20:02 BP 141 / 55; Pulse 67; Resp 16; Pulse Ox 100% on R/A; wh MDM: 09:15 Patient medically screened. rn 12:09 Differential Diagnosis: Bronchitis Upper Respiratory Infection Viral Syndrome rn Pneumonia. Data reviewed: vital signs, nurses notes, lab test result(s), radiologic studies, plain films, and as a result, I will admit patient. Counseling: I had a detailed discussion with the patient and/or guardian regarding: the historical points, exam findings, and any diagnostic results supporting the discharge/admit diagnosis, lab results, radiology results, the need for further work-up and treatment in the hospital. Response to treatment: There is no appreciated change of the patient's symptoms at this time. Admission orders: after a detailed discussion of the patient's condition and case, the admit orders are written by me. 04/28 09:17 Order name: Blood Culture Adult (2) 04/28 09:17 Order name: BMP; Complete Time: 12:04/28 09:17 Order name: C-Reactive Protein; Complete Time: 12:04/28 09:17 Order name: CBC with Diff; Complete Time: 12:04/28 09:17 Order name: COVID-19 04/28 09:17 Order name: D-Dimer; Complete Time: 12:04/28 09:17 Order name: Ferritin; Complete Time: 12:04/28 09:17 Order name: Lactate; Complete Time: 12:04/28 09:17 Order name: Procalcitonin; Complete Time: 12:28 04/28 09:17 Order name: PT-INR; Complete Time: 12:02 04/28 09:17 Order name: Ptt, Activated; Complete Time: 12:02 04/28 09:17 Order name: Troponin (emerg Dept Use Only); Complete Time: 12:04/28 12:42 Order name: BNP 04/28 18:18 Order name: Troponin I EDMS 04/28 09:17 Order name: CXR XRAY; Complete Time: 11:25 04/28 09:17 Order name: EKG; Complete Time: 09:18 04/28 09:17 Order name: Cardiac monitoring; Complete Time: 09:23 04/28 09:17 Order name: Document PUI#; Complete Time: 19:15 04/28 09:17 Order name: Droplet/Contact Precautions; Complete Time: :04/28 09:17 Order name: EKG - Nurse/Tech; Complete Time: 19:01 rn 04/28 09:17 Order name: IV Start; Complete Time: 13:55 rn 04/28 09:17 Order name: Labs collected and sent; Complete Time: 13:55 rn 04/28 09:17 Order name: Notify Health Dept [phone]/ ; Complete Time: 19:15 rn 04/28 09:17 Order name: O2 Per Protocol; Complete Time: 09:24 rn 04/28 09:17 Order name: O2 Sat Monitoring; Complete Time: 09:24 rn 04/28 12:02 Order name: CT Chest For PE Angio; Complete Time: 12:40 rn Administered Medications: 12:45 Drug: Decadron - Dexamethasone 10 mg Route: IVP; Site: right antecubital; [facility] 13:30 Follow up: Response: No adverse reaction [facility] 12:45 Drug: Henry 10 mg-325 mg 1 tabs Route: PO; 7 14:04 Follow up: Response: No adverse reaction; Pain is decreased 7 Disposition: 04/28/20 12:10 Hospitalization ordered by Sanchez Caruso for Inpatient Admission. Preliminary diagnosis are Pneumonia, unspecified organism, Chronic obstructive pulmonary disease with acute lower respiratory infection, Chronic obstructive pulmonary disease with (acute) exacerbation. - Bed requested for Telemetry/MedSurg (Inpatient). - Status is Inpatient Admission. wh - Condition is Stable. - Problem is an ongoing problem. - Symptoms are unchanged. Signatures: Dispatcher [employer] EDMS Chin Allan MD MD rn Smirch, Shelby, RN RN Shanti Aceves RN RN cg Leal, Jahala, RN RN jl7 Namrata Alvarado Corrections: (The following items were deleted from the chart) 16:22 12:10 Hospitalization Ordered by Sanchez Caruso MD for Inpatient Admission. Preliminary ss diagnosis is Pneumonia, unspecified organism; Chronic obstructive pulmonary disease with acute lower respiratory infection; Chronic obstructive pulmonary disease with (acute) exacerbation. Bed requested for Telemetry/MedSurg (Inpatient). Status is Inpatient Admission. Condition is Stable. Problem is an ongoing problem. Symptoms are unchanged. rn 19:41 16:22 04/28/2020 12:10 Hospitalization Ordered by Sanchez Caruso MD for Inpatient cg Admission. Preliminary diagnosis is Pneumonia, unspecified organism; Chronic obstructive pulmonary disease with acute lower respiratory infection; Chronic obstructive pulmonary disease with (acute) exacerbation. Bed requested for [facility] ER HOLD. Status is Inpatient Admission. Condition is Stable. Problem is an ongoing problem. Symptoms are unchanged. ss 19:47 19:41 04/28/2020 12:10 Hospitalization Ordered by Sanchez Caruso MD for Inpatient cg Admission. Preliminary diagnosis is Pneumonia, unspecified organism; Chronic obstructive pulmonary disease with acute lower respiratory infection; Chronic obstructive pulmonary disease with (acute) exacerbation. Bed requested for Telemetry/MedSurg (Inpatient). Status is Inpatient Admission. Condition is Stable. Problem is an ongoing problem. Symptoms are unchanged. cg 20:22 19:47 04/28/2020 12:10 Hospitalization Ordered by Sanchez Caruso MD for Inpatient wh Admission. Preliminary diagnosis is Pneumonia, unspecified organism; Chronic obstructive pulmonary disease with acute lower respiratory infection; Chronic obstructive pulmonary disease with (acute) exacerbation. Bed requested for Telemetry/MedSurg (Inpatient). Status is Inpatient Admission. Condition is Stable. Problem is an ongoing problem. Symptoms are unchanged. cg
--- NOTE | 2020-04-28 12:34 | RAD REPORT ---
EXAM DESCRIPTION: CT - Chest For Pe Angio - 04/28/2020 12:24 pm CLINICAL HISTORY: COPD;Cough;Dyspnea COMPARISON: Chest For Pe Angio dated 03/07/2020; Chest Single View dated 04/28/2020 TECHNIQUE: Dynamically enhanced 3 mm thick images of the chest were obtained during administration o f approximately 150mL Isovue 370 IV contrast. Coronal and oblique MIP reconstruction images were gene rated and reviewed. Exam utilizes a protocol to evaluate the pulmonary arterial tree. All CT scans are performed using dose optimization technique as appropriate and may include automated exposure control or mA/KV adjustment according to patient size. FINDINGS: No pulmonary emboli are identified. The aorta as imaged shows no acute or suspicious finding. No pericardial thickening or effusion. No new mass or consolidation. The suspected patchy pneumonia posterior left base on March 07 is no long er present. The patient does have chronic interstitial opacification. Emphysematous changes are prese nt primarily in the upper lobes. This baseline pattern is not substantially different from comparison . Severity of this chronic pattern could mask early edema or infiltrate. No pleural based mass. No pl eural effusions. No mediastinal or hilar suspicious masses. No chest wall masses or abnormal axillary lymphadenopathy. Patient has a large hiatal hernia with approximately 25% of the stomach intrathoracic. IMPRESSION: No pulmonary emboli identified. Posterior gutter left pneumonia has resolved since March 07. No acute lung parenchymal process seen. The extensive chronic interstitial opacification pattern coul d mask early edema or infiltrate.
[2020-04-28] MEDS ORDERED: dexAMETHasone 10 MG/ML VIAL ONE (12:55)
[2020-04-28] MEDS ORDERED: HYDROCODONE/APAP 10/325 TAB ONE (12:55)
[2020-04-28] MEDS ORDERED: Levofloxacin500mg IV 500 MG/100 ML BAG IV SCH (16:25)
[2020-04-28] MEDS ORDERED: ALBUTEROL INHALER 60 PUFF/8 GM IH PRN (16:25)
[2020-04-28] MEDS ORDERED: HYDROCODONE/APAP 10/325 TAB PO PRN (16:25)
[2020-04-28] MEDS ORDERED: ONDANSETRON 4 MG/2 ML VIAL IV PRN (16:25)
[2020-04-28] MEDS: GABAPENTIN 300 MG CAP PO SCH ×2 (16:25→22:07)
[2020-04-28] MEDS: carvediloL 12.5 MG TAB PO SCH (18:00)
[2020-04-28] MEDS ORDERED: carvediloL 6.25 MG TAB ONE (19:34)
[2020-04-28] MEDS: predniSONE 20 MG TAB PO SCH (21:00)
[2020-04-28] MEDS: DULERA 200/5 (MOMETASONE/FORMOTEROL) INHALER IH SCH (21:00)
--- NOTE | 2020-04-28 21:10 | P.HP ---
Certification for Inpatient Patient admitted to: Observation With expected LOS: <2 Midnights Patient will require the following post-hospital care: None Practitioner: I am a practitioner with admitting privileges, knowledge of patient current condition, hospital course, and medical plan of care. Services: Services provided to patient in accordance with Admission requirements found in Title 42 Section 412.3 of the Code of Federal Regulations <Beto Ayers - Last Filed: 04/28/20 13:43> Patient History Date of Service: 04/28/20 Reason for admission: Hemoptysis, shortness of breath - Past Medical/Surgical History Diabetic: No -: Hypertension -: Chronic vertebral fractures -: Former smoker -: GERD with hiatal hernia -: Anemia of chronic disease -: Chronic pain -: Diastolic CHF with pulmonary hypertension -: Carpal tunnel disease -: copd -: Back surgery -: Appendectomy -: carpal tunnel sx -: tubal ligation Psychosocial/ Personal History: Patient is - Family History Family History: Reviewed- Non-Contributory - Family History Father -: Hypertension, Stroke Mother -: Hypertension, Stroke Brother -: Lung disease Sister -: Heart disease - Social History Smoking Status: Former smoker Alcohol use: No CD- Drugs: No Caffeine use: Yes Place of Residence: Home <AndriaBeto - Last Filed: 04/28/20 13:43> Date of Service: 04/28/20 <Timothy Caruso - Last Filed: 04/28/20 15:17> Allergies clindamycin Allergy (Verified 03/07/20 22:18) unknown reaction codeine Allergy (Verified 03/07/20 22:18) unknown reaction Home Medications: Albuterol Sulfate [Proair Respiclick] 2 inh IH Q6H PRN 07/07/19 Furosemide 40 mg PO DAILY 07/07/19 Gabapentin 300 mg PO TID 07/07/19 Hydrocodone Bit/Acetaminophen [Hydrocodon-Acetaminophn 10-325] 1 each PO Q6H 07/07/19 Loratadine 10 mg PO DAILY 07/07/19 Pantoprazole [Protonix Tab*] 40 mg PO DAILY 07/07/19 Umeclidinium Brm/Vilanterol Tr [Anoro Ellipta 62.5-25 Mcg INH] 1 each IH DAILY 10/05/19 carvediloL [Carvedilol] 12.5 mg PO BID 07/07/19 lisinopriL [Lisinopril] 40 mg PO DAILY 07/07/19 Vit D3 5000 Intl Units 1 cap PO DAILY 01/01/20 Potassium Chloride [Klor-Con M20] 1 tab PO DAILY 03/07/20 Doxycycline Hyclate 100 mg PO BID #20 tablet 03/08/20 Ferrous Sulfate [Iron] 325 mg PO BID #60 tablet 03/08/20 Levofloxacin [Levaquin] 500 mg PO DAILY #7 tablet 03/08/20 predniSONE [Deltasone*] 10 mg PO DAILY #7 tab 03/08/20 Review of Systems 10-point ROS is otherwise unremarkable Respiratory: Cough, Shortness of Breath, Hemoptysis <Beto Ayers - Last Filed: 04/28/20 13:43> Physical Examination - Physical Exam General: Alert, In no apparent distress HEENT: Atraumatic, PERRLA, Mucous membr. moist/pink, EOMI, Sclerae nonicteric Neck: Supple, 2+ carotid pulse no bruit, No LAD, Without JVD or thyroid abnormality Respiratory: Crackles/rales (Bilaterally) Cardiovascular: Regular rate/rhythm, Normal S1 S2 Capillary refill: <2 Seconds Gastrointestinal: Normal bowel sounds, No tenderness Musculoskeletal: No tenderness Integumentary: No rashes Neurological: Normal gait, Normal speech, Normal strength at 5/5 x4 extr, Normal tone, Normal affect Lymphatics: No axilla or inguinal lymphadenopathy - Studies Laboratory Data (last 24 hrs) 04/28/20 11:27: PT 10.6, INR 0.90, APTT 26.6 04/28/20 11:27: WBC 8.8, Hgb 9.0 L, Hct 29.5 L, Plt Count 291 04/28/20 11:27: Sodium 142, Potassium 4.9, BUN 32 H, Creatinine 0.81, Glucose 97 <Beto Ayers - Last Filed: 04/28/20 13:43> - Studies Laboratory Data (last 24 hrs) 04/28/20 11:27: PT 10.6, INR 0.90, APTT 26.6 04/28/20 11:27: WBC 8.8, Hgb 9.0 L, Hct 29.5 L, Plt Count 291 04/28/20 11:27: Sodium 142, Potassium 4.9, BUN 32 H, Creatinine 0.81, Glucose 97 Microbiology Data (last 24 hrs): 04/28/20 09:17 Nasopharnyx Coronavirus COVID-19 PCR - Final <Timothy Caruso - Last Filed: 04/28/20 15:17> Assessment and Plan - Plan Assessment Hemoptysis and right upper lobe infiltrate on chest x-ray 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 Will obtain sputum cultures and AFB. Will start patient on Levaquin at this time. Have consulted pulmonology. Patient at baseline oxygen requirement. Anticipate clinical improvement in discharge next 24-48 hr. Elevated troponin level: Will try in troponins and obtain echocardiogram. If any of these are abnormal or the troponin trend up will consult cardiology. Patient is chest pain-free. 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 Appreciate further input from pulmonology. Diastolic congestive heart failure with pulmonary hypertension: Have started patient's home medications, patient seems slightly overloaded. Will increase La six to IV dosage. GERD with hiatal hernia: Continue patient's Protonix. Discharge Plan: Home Plan to discharge in: 24 Hours - Advance Directives Does patient have a Living Will: Yes Does patient have a Durable POA for Healthcare: Yes - Code Status/Comfort Care Code Status Assessed: Yes Critical Care: No Time Spent Managing Pts Care (In Minutes): 55 <Bteo Ayers - Last Filed: 04/28/20 13:43> Physician Review Additional Text: Patient was seen and examined and findings were discussed Agree with the assessment and plan as documented by the HILDA <Timothy Caruso - Last Filed: 04/28/20 15:17>
[2020-04-28] MEDS: FUROSEMIDE 20 MG/ 2ML VIAL IV SCH (22:07)
[2020-04-29 00:06] VITALS: BMI 18.2
[2020-04-29] MEDS: carvediloL 12.5 MG TAB PO SCH (05:14)
[2020-04-29 05:53] LABS: Absolute Lymphocytes (CBC) 0.6 K/uL (0.7-4.9); Basophils % 0.3 % (0-1.3); Hematocrit 27.4 % (36.0-45.0); Lymphocytes % 17.1 % (15.3-44.8); MPV 8.4 fL (7.6-11.3); RBC Red Blood Cell Count 3.41 M/uL (3.86-4.86)
[2020-04-29 06:06] LABS: Protime INR 0.96
[2020-04-29 06:15] LABS: Magnesium 2.3 mg/dL (1.8-2.4); Potassium 5.1 mmol/L (3.5-5.1)
[2020-04-29] MEDS ORDERED: PANTOPRAZOLE 40MG TABLET PO SCH (06:30)
[2020-04-29] MEDS: GABAPENTIN 300 MG CAP PO SCH (08:23)
[2020-04-29 08:25] VITALS: BP 150/66; TEMP 98.9
[2020-04-29] MEDS: predniSONE 20 MG TAB PO SCH (08:25)
[2020-04-29] MEDS: FUROSEMIDE 20 MG/ 2ML VIAL IV SCH (08:25)
[2020-04-29] MEDS ORDERED: ENOXAPARIN 40 MG/0.4 ML SQ SCH (09:00)
[2020-04-29] MEDS ORDERED: lisinopriL 20 MG TAB PO SCH (09:00)
[2020-04-29] MEDS ORDERED: ENOXAPARIN 30 MG/0.3 ML SQ SCH (09:00)
[2020-04-29] MEDS: DULERA 200/5 (MOMETASONE/FORMOTEROL) INHALER IH SCH (09:11)
--- NOTE | 2020-04-29 09:23 | P.DS ---
Admission Date: 04/28/20 Discharge Date: 04/29/20 Reason for Admission: Hemoptysis, shortness of breath Consultations: Katherine Curran - Pulmonology Brief History of Present Illness: 85-year-old female with past medical history of COPD who was admitted for compl aints of hemoptysis and shortness of breath. Hospital Course: 85-year-old female with a past medical history of advanced COPD on 2 L nasal cannula at home was admitted for complaints of shortness of breath and hemoptysis. Patient is followed by Dr. Curran with pulmonology. Patient states she has not had hemoptysis since admission. CTA of the chest shows No pulmonary emboli identified. Posterior gutter left pneumonia has resolved since March 07. No acute lung parenchymal process seen. The extensive chronic interstitial opacification pattern could mask early edema or infiltrate. Patient is at her baseline with O2 requirement. She is on 2 L nasal cannula at home and is on 2 L nasal cannula currently. Pulmonology has seen patient and is recommending to be discharged on Levaquin 500 mg daily, doxycycline 100 mg b.i.d. and 10 mg of prednisone b.i.d. for 7 days. Patient can be discharged home to follow up with pulmonology in the next 2 weeks. Follow up with PCP in the next 2-3 days. <Chadwick Gregorio - Last Filed: 04/29/20 09:34> Admission Date: 04/28/20 Discharge Date: 04/30/20 <Timothy Caruso - Last Filed: 04/30/20 16:42> Disposition: ROUTINE DISCHARGE Discharge Condition: GOOD Vital Signs/Physical Exam: Temp Pulse Resp BP Pulse Ox 98.9 F 70 18 150/66 H 99 04/29/20 08:00 04/29/20 08:25 04/29/20 08:00 04/29/20 08:25 04/29/20 08:00 General: Alert, In no apparent distress, Oriented x3 HEENT: Atraumatic, Normocephalic, PERRLA Neck: Supple, Other (Trachea midline) Respiratory: Clear to auscultation bilaterally, Normal air movement Cardiovascular: No edema, Normal pulses, Regular rate/rhythm Gastrointestinal: Normal bowel sounds, Soft and benign, Non-distended Musculoskeletal: No clubbing, No swelling, No contractures Integumentary: No rashes, No breakdown, No significant lesion Neurological: Normal gait, Normal speech, Normal strength at 5/5 x4 extr, Normal tone Laboratory Data at Discharge: WBC 3.5 K/uL (4.3-10.9) L D 04/29/20 05:14 Hgb 8.6 g/dL (12.0-15.0) L 04/29/20 05:14 Hct 27.4 % (36.0-45.0) L 04/29/20 05:14 Plt Count 303 K/uL (152-406) 04/29/20 05:14 PT 11.3 SECONDS (9.5-12.5) 04/29/20 05:14 INR 0.96 04/29/20 05:14 APTT 27.2 SECONDS (24.3-36.9) 04/29/20 05:14 Sodium 140 mmol/L (136-145) 04/29/20 05:14 Potassium 5.1 mmol/L (3.5-5.1) 04/29/20 05:14 BUN 31 mg/dL (7-18) H 04/29/20 05:14 Creatinine 0.77 mg/dL (0.55-1.3) 04/29/20 05:14 Glucose 97 mg/dL (74-106) 04/29/20 05:14 Magnesium 2.3 mg/dL (1.8-2.4) 04/29/20 05:14 Troponin I 0.02 ng/mL (0.0-0.045) 04/29/20 01:58 Triglycerides 104 mg/dL (<150) 04/29/20 05:14 Cholesterol 174 mg/dL (<200) 04/29/20 05:14 HDL Cholesterol 87 mg/dL (40-60) H 04/29/20 05:14 Cholesterol/HDL Ratio 2.00 04/29/20 05:14 <Chadwick Gregorio - Last Filed: 04/29/20 09:34> Vital Signs/Physical Exam: Temp Pulse Resp BP Pulse Ox 98.9 F 70 18 150/66 H 99 04/29/20 08:00 04/29/20 08:25 04/29/20 08:00 04/29/20 08:25 04/29/20 08:00 Laboratory Data at Discharge: WBC 3.5 K/uL (4.3-10.9) L D 04/29/20 05:14 Hgb 8.6 g/dL (12.0-15.0) L 04/29/20 05:14 Hct 27.4 % (36.0-45.0) L 04/29/20 05:14 Plt Count 303 K/uL (152-406) 04/29/20 05:14 PT 11.3 SECONDS (9.5-12.5) 04/29/20 05:14 INR 0.96 04/29/20 05:14 APTT 27.2 SECONDS (24.3-36.9) 04/29/20 05:14 Sodium 140 mmol/L (136-145) 04/29/20 05:14 Potassium 5.1 mmol/L (3.5-5.1) 04/29/20 05:14 BUN 31 mg/dL (7-18) H 04/29/20 05:14 Creatinine 0.77 mg/dL (0.55-1.3) 04/29/20 05:14 Glucose 97 mg/dL (74-106) 04/29/20 05:14 Magnesium 2.3 mg/dL (1.8-2.4) 04/29/20 05:14 Troponin I 0.02 ng/mL (0.0-0.045) 04/29/20 01:58 Triglycerides 104 mg/dL (<150) 04/29/20 05:14 Cholesterol 174 mg/dL (<200) 04/29/20 05:14 HDL Cholesterol 87 mg/dL (40-60) H 04/29/20 05:14 Cholesterol/HDL Ratio 2.00 04/29/20 05:14 <Timothy Caruso - Last Filed: 04/30/20 16:42> Patient Discharge Instructions: Please go for prescriptions with patient. Patient to follow up with Dr. Curran in 2 weeks. Continue home medications. Prednisone was increased to 10 mg b.i.d. per pulmonology request. Diet: Regular Activity: Ad jesus manuel Time spent managing pt's care (in minutes): 50 <Chadwick Gregorio - Last Filed: 04/29/20 09:34> Physician Review: Patient Assessed, Agree with Above Assessment and Plan (Patient was seen and examined and findings were discussed on 04/29/2020 Agree with the assessment and plan as documented by the HILDA) <Timothy Caruso - Last Filed: 04/30/20 16:42> Home Medications: Albuterol Sulfate [Proair Respiclick] 2 inh IH Q6H PRN 07/07/19 Furosemide 40 mg PO DAILY 07/07/19 Gabapentin 300 mg PO TID 07/07/19 Hydrocodone Bit/Acetaminophen [Hydrocodon-Acetaminophn 10-325] 1 each PO Q6H 07/07/19 Loratadine 10 mg PO DAILY 07/07/19 Pantoprazole [Protonix Tab*] 40 mg PO DAILY 07/07/19 Umeclidinium Brm/Vilanterol Tr [Anoro Ellipta 62.5-25 Mcg INH] 1 each IH DAILY 07/07/19 carvediloL [Carvedilol] 12.5 mg PO BID 07/07/19 lisinopriL [Lisinopril] 40 mg PO DAILY 07/07/19 Vit D3 5000 Intl Units 1 cap PO DAILY 01/01/20 Potassium Chloride [Klor-Con M20] 1 tab PO DAILY 03/07/20 Albuterol Inhaler [Ventolin Inhaler*] 2 puff IH Q6H PRN hfa.aer.ad 04/29/20 Doxycycline Hyclate 100 mg PO BID 7 Days #14 tablet 04/29/20 Hydrocodone 10/APAP 325 [[place] 10/325*] 1 tab PO Q6H PRN tab 04/29/20 Levofloxacin [Levaquin] 500 mg PO DAILY 7 Days #7 tablet 04/29/20 Mometasone/Formoterol [Dulera 200 Mcg/5 Mcg Inhaler] 2 puff IH BID inhaler 04/29/20 Pantoprazole [Protonix Tab*] 40 mg PO DAILYAC tab 04/29/20 carvediloL [Coreg*] 12.5 mg PO BID 6AM 6PM tab 04/29/20 lisinopriL [Prinivil*] 40 mg PO DAILY tab 04/29/20 predniSONE [Deltasone*] 10 mg PO BID 30 Days #60 tab 04/29/20 New Medications: predniSONE [Deltasone*] 10 mg PO BID 30 Days #60 tab Doxycycline Hyclate 100 mg PO BID 7 Days #14 tablet Levofloxacin [Levaquin] 500 mg PO DAILY 7 Days #7 tablet Followup: Jalen Curran MD [ACTIVE - CAN ADMIT] -
[2020-04-29 10:41] VITALS: O2SAT 98
--- NOTE | 2020-04-29 12:12 | ECHO ---
HEIGHT: 5 ft 4 in WEIGHT: 106 lb 1.6 oz DATE OF STUDY: 04/29/[address]: Beto Ayers NP 2-DIMENSIONAL: YES M.MODE: YES DOPPLER: YES COLOR FLOW: YES TDS: NO PORTABLE: NO DEFINITY: NO BUBBLE STUDY: NO DIAGNOSIS: ELEVATED TROPONIN CARDIAC HISTORY: CATHERIZATION: NO SURGERY: NO PROSTHETIC VALVE: NO PACEMAKER: NO MEASUREMENTS (cm) DIASTOLIC (NORMALS) SYSTOLIC (NORMALS) IVSd 1.1 (0.6-1.2) LA Diam (1.9-4.0) LVEF 76% LVIDd 3.9 (3.5-5.7) LVIDs 2.2 (2.0-3.5) %FS 44% LVPWd 1.0 (0.6-1.2) Ao Diam 2.5 (2.0-3.7) 2 DIMENSIONAL ASSESSMENT: RIGHT ATRIUM: NORMAL LEFT ATRIUM: NORMAL RIGHT VENTRICLE: NORMAL LEFT VENTRICLE: NORMAL TRICUSPID VALVE: NORMAL MITRAL VALVE: NORMAL PULMONIC VALVE: NORMAL AORTIC VALVE: NORMAL PERICARDIAL EFFUSION: NONE AORTIC ROOT: NORMAL LEFT VENTRICULAR WALL MOTION: NORMAL. DOPPLER/COLOR FLOW: NORMAL. COMMENTS: NORMAL 2D ECHO WITH DOPPLER. NO WALL MOTION ABNORMALITY. NO EFFUSION. TECHNOLOGIST: AMOR NG
== END 2020-04-29 10:42 | disposition home or self-care (01) ==
LOC: ER 09:01 → ERHOLD 13:31 → 2ND 20:18
PROVIDERS: ADMIT Family Medicine; ATTEND Family Medicine
DX: R04.2 Hemoptysis (principal); R91.8 Other nonspecific abnormal finding of lung field; J44.9 Chronic obstructive pulmonary disease, unspecified; I11.0 Hypertensive heart disease with heart failure; I50.30 Unspecified diastolic (congestive) heart failure; I27.20 Pulmonary hypertension, unspecified; R05 Cough; R06.02 Shortness of breath; Z20.828 Contact with and (suspected) exposure to other viral communicable diseases; D63.8 Anemia in other chronic diseases classified elsewhere; K21.9 Gastro-esophageal reflux disease without esophagitis; K44.9 Diaphragmatic hernia without obstruction or gangrene; Z79.899 Other long term (current) drug therapy; Z87.891 Personal history of nicotine dependence; Z99.81 Dependence on supplemental oxygen
CPT/HCPCS: 93005; 93306; 87040; 85025 ×2; 80048 ×2; 36415; 83735; 85610 ×2; 80061; 85379; 83605; 85730 ×2; 84484 ×3; 82728; 84145; 83880; 86140; 71275; 71045; 96374; 99285; U0002; Q9967; J1940 ×2; J1650; J1100; G0378 ×3; J7512; J7606

== ENCOUNTER 2020-05-14 13:18 | Inpatient (IN) | payer OTHER ==
[2020-05-14 14:02] LABS: Absolute Lymphocytes (CBC) 0.8 K/uL (0.7-4.9); Basophils % 0.1 % (0-1.3); Hematocrit 28.2 % (36.0-45.0); Lymphocytes % 8.6 % (15.3-44.8); MPV 8.2 fL (7.6-11.3); RBC Red Blood Cell Count 3.41 M/uL (3.86-4.86)
[2020-05-14 14:17] LABS: Arterial Blood Carboxyhemoglob 1.3 % (0-1.5); Blood O2 Saturation 99.1 % (92-98.5)
[2020-05-14 14:19] LABS: ALT/SGPT 11 U/L (12-78); AST/SGOT 8 U/L (15-37); Albumin 2.3 g/dL (3.4-5.0); Alkaline Phosphatase 48 U/L (45-117); Amylase 31 U/L (25-115); BUN Blood Urea Nitrogen 35 mg/dL (7-18); Bicarbonate 38 mmol/L (21-32); Bilirubin Direct < 0.1 mg/dL (0-0.2); Bilirubin Total 0.3 mg/dL (0.2-1.0); CKMB Creatine Kinase MB < 1.0 ng/mL (0.3-3.6); Creatine Phosphokinase 19 U/L (26-192); Glucose Level 101 mg/dL (74-106); Lipase 52 U/L (73-393); Potassium 4.5 mmol/L (3.5-5.1); Protein, Total 6.7 g/dL (6.4-8.2); Sodium Level 148 mmol/L (136-145); Troponin (Emerg Dept Use Only) < 0.02 ng/mL (0.0-0.045)
--- OUTSIDE RECORDS SUMMARY | 2020-05-14 14:25 | XMS REPORT | Continuity of Care Document ---
:1935 Author Organization [facility] t Address [address] [place] [address] Care Team Providers Name Role Phone Delicia LOPEZ Primary Care Physician Pob, Lab Main Attending Clinician Unavailable Problems This patient has no known problems. Allergies, Adverse Reactions, Alerts Allergy Allergy Status Severity Reaction(s) Onset Inactive Treating Comm ents Source Name Type Date Date Clinician Clingloria Sears Active Other (See 0 [facility] ty to Comments) - she was Method i adverse 00:00: told not st reaction 00 to take s to by PCP drug Codeine Propensi Active Other (See Childhood [place] ty to Comments) - allergy Method i adverse 00:00: st reaction 00 s to drug Social History Social Habit Start Date Stop Date Quantity Comments Source History of tobacco Cigarette Smoker [place] use [facility] Sex Assigned At [place] [facility]anda[facility] Cigarettes smoked 2018-04-18 2018-04-18 [place] current (pack per 00:00:00 00:00:[address] day) - Reported Cigarette 2018-04-18 2018-04-18 [place] pack-years 00:00:00 00:00:00 [facility] Alcohol intake 2018-04-18 2018-04-18 Current [place] 00:00:00 00:00:00 non-drinker of [facility]anda[facility] alcohol (finding) Smoking Status Start Date Stop Date Source Current every day smoker 2018-04-18 00:00:00 Lolly weir [facility] Medications Ordered Filled Start Stop Current Ordering [...] 40 MG EC 00 tablet tiZANidine Yes [place] (ZANAFLEX) 6-19 [facility] 4 MG tablet 00:00: st 00 PROAIR HFA Yes [place] 90 5-04 [facility] mcg/actuati 00:00: st on inhaler 00 metoprolol Yes [place] succinate 5-04 [facility] XL 00:00: st (TOPROL-XL) 00 50 mg 24 hr tablet Procedures This patient has no known procedures. Plan of Care Planned Activity Planned Date Details Comments Source Future Scheduled 2020-06-03 INFLUENZA VACCINE Nella huizar [facility] Test 00:00:00 [code = INFLUENZA VACCINE] Future Scheduled 2002 65+ PNEUMOCOCCAL Hank [facility] Test 00:00:00 VACCINE (1 of 2 - PCV13) [code = 65+ PNEUMOCOCCAL VACCINE (1 of 2 - PCV13)] Future Scheduled 1987 SHINGLES VACCINES (#1) H suri [facility]anda[facility] Test 00:00:00 [code = SHINGLES VACCINES (#1)] Encounters Start End Encounter Admission Attending Care Care Encounter Source Date/Time Date/Time Type Type Clinicians Facility Department ID 2019-12-20 2019-12-20 Night Supervisor James Maki [facility] [id number] 14:10:01 14:34:05 Visit Lab Main [place] [id number] [place] [id number] [facility] [phone] [facility] [address] Results This patient has no known results.
--- OUTSIDE RECORDS SUMMARY | 2020-05-14 14:25 | XMS REPORT | Clinical Summary ---
:1935 Author Organization [facility] Address [address] [place] [address] Care Team Providers Name Role Phone Jose Roberto Nesbitt MD Primary Care Provider [phone] Allergies Active Allergy Reactions Severity Noted Date [...] of 2 - PCV13) 2002 INFLUENZA VACCINE 06/03/2020 Results Not on fileafter 05/14/2019 Insurance Payer Benefit Plan / Subscriber ID Effective Phone Address T ype Group Dates COMMERCIAL MISC MISC COMMERCIAL xxxxxxxxx 2017-Pres Commercial ent MEDICARE MEDICARE PART A xxxxxxxxxx 2002-Pres [place], [place] Medicare AND B ent Advance Directives For more information, please contact: [phone] Type Date Recorded Patient Infrastructure Architect Explanati on Advance Directives, Living Will and Medical Power of Signing Teacher
[2020-05-14] MEDS ORDERED: NA CHLORIDE 0.9% 1,000 ML ONE (14:41)
[2020-05-14 15:15] LABS: Arterial Blood Carboxyhemoglob 1.7 % (0-1.5); Blood Gas Oxyhemoglobin 86.9 % (94-97); Blood O2 Saturation 89.1 % (92-98.5)
--- NOTE | 2020-05-14 16:09 | RAD REPORT ---
EXAM DESCRIPTION: Jairon Single View05/14/2020 3:34 pm CLINICAL HISTORY: Shortness of breath COMPARISON: April 2020 FINDINGS: Bilateral pulmonary interstitial opacities have partially resolved The heart is mildly enlarged IMPRESSION: Partial resolution in bilateral pulmonary interstitial opacities
--- NOTE | 2020-05-14 16:37 | P.HP ---
Certification for Inpatient Patient admitted to: Inpatient With expected LOS: >2 Midnights Patient will require the following post-hospital care: None Practitioner: I am a practitioner with admitting privileges, knowledge of patient current condition, hospital course, and medical plan of care. Services: Services provided to patient in accordance with Admission requirements found in Title 42 Section 412.3 of the Code of Federal Regulations Patient History Date of Service: 05/14/20 Primary Care Provider: Dr. Wong; Pulmonary-Dr. Curran Reason for admission: Shortness of breath History of Present Illness: 85-year-old female with history of COPD, anemia of chronic disease, CHF, GERD and chronic pain. Patient recently hospitalized on 04/29/2020 for bilateral pneumonia. Patient reported increasing shortness of breath today. She reported that she evening getting short of breath after she was on her last dose of antibiotic. Patient denied any fever, chills. Some cough noted. She denies any other symptoms. She came to the ER for further evaluation. In the ER she was found to be hypoxic. Pulse oxygen saturations low. Patient was started on BiPAP. Chest x-ray showed resolving bilateral infiltrates. ABG showed pH is 7.35 with a PO2 of 57. CBC hemoglobin stable from last. White count 9.7. Sodium 148, potassium 4.5. BUN of 35, creatinine 0.7. Patient currently stable at this time on BiPAP. Patient admitted for further evaluation and treatment. When I saw the patient ER, she appeared stable on BiPAP. No other history provided. Previous hospitalization reviewed. Allergies clindamycin Allergy (Verified 04/28/20 19:09) unknown reaction codeine Allergy (Verified 04/28/20 19:09) unknown reaction Home medications list reviewed: Yes Home Medications: Albuterol Sulfate [Proair Respiclick] 2 inh IH Q6H PRN 07/07/19 Furosemide 40 mg PO DAILY 07/07/19 Gabapentin 300 mg PO TID 07/07/19 Hydrocodone Bit/Acetaminophen [Hydrocodon-Acetaminophn 10-325] 1 each PO Q6H 07/07/19 Loratadine 10 mg PO DAILY 07/07/19 Pantoprazole [Protonix Tab*] 40 mg PO DAILY 07/07/19 Umeclidinium Brm/Vilanterol Tr [Anoro Ellipta 62.5-25 Mcg INH] 1 each IH DAILY 07/07/19 carvediloL [Carvedilol] 12.5 mg PO BID 07/07/19 lisinopriL [Lisinopril] 40 mg PO DAILY 07/07/19 Vit D3 5000 Intl Units 1 cap PO DAILY 01/01/20 Potassium Chloride [Klor-Con M20] 1 tab PO DAILY 03/07/20 Albuterol Inhaler [Ventolin Inhaler*] 2 puff IH Q6H PRN hfa.aer.ad 04/29/20 Doxycycline Hyclate 100 mg PO BID 7 Days #14 tablet 04/29/20 Hydrocodone 10/APAP 325 [[place] 10/325*] 1 tab PO Q6H PRN tab 04/29/20 Levofloxacin [Levaquin] 500 mg PO DAILY 7 Days #7 tablet 04/29/20 Mometasone/Formoterol [Dulera 200 Mcg/5 Mcg Inhaler] 2 puff IH BID inhaler 04/29/20 Pantoprazole [Protonix Tab*] 40 mg PO DAILYAC tab 04/29/20 carvediloL [Coreg*] 12.5 mg PO BID 6AM 6PM tab 04/29/20 lisinopriL [Prinivil*] 40 mg PO DAILY tab 04/29/20 predniSONE [Deltasone*] 10 mg PO BID 30 Days #60 tab 04/29/20 - Past Medical/Surgical History Diabetic: No -: Hypertension -: Chronic vertebral fractures -: Former smoker -: GERD with hiatal hernia -: Anemia of chronic disease -: Chronic pain -: Diastolic CHF with pulmonary hypertension -: Carpal tunnel disease -: COPD -: Back surgery -: Appendectomy -: carpal tunnel sx -: tubal ligation Psychosocial/ Personal History: Patient is - Family History Father -: Hypertension, Stroke Mother -: Hypertension, Stroke Brother -: Lung disease Sister -: Heart disease - Social History Smoking Status: Unknown if ever smoked Alcohol use: No CD- Drugs: No Caffeine use: Yes Place of Residence: Home Review of Systems General: As per HPI Eyes: Unremarkable Respiratory: Shortness of Breath, SOB with Excertion, As per HPI Cardiovascular: Unremarkable Gastrointestinal: Unremarkable Genitourinary: Unremarkable Musculoskeletal: Unremarkable Integumentary: Unremarkable Neurological: Unremarkable Lymphatics: Unremarkable Physical Examination - Physical Exam General: Alert, Oriented x3, Cooperative, Mild distress, Other (Currently on BiPAP) HEENT: Atraumatic Neck: Supple Respiratory: Expiratory wheezes (Bilateral) Cardiovascular: Normal pulses, Regular rate/rhythm Gastrointestinal: Normal bowel sounds, Soft and benign, Non-distended Integumentary: No tenderness/swelling, No erythema, No warmth, No cyanosis Neurological: Normal speech, Normal strength at 5/5 x4 extr, Normal tone, Normal affect - Studies Laboratory Data (last 24 hrs) 05/14/20 13:40: PT 11.8, INR 1.00, APTT 24.5 05/14/20 13:40: WBC 9.7, Hgb 8.5 L, Hct 28.2 L, Plt Count 308 05/14/20 13:40: Sodium 148 H, Potassium 4.5, BUN 35 H, Creatinine 0.74, Glucose 101, Total Bilirubin 0.3, AST 8 L, ALT 11 L, Alkaline Phosphatase 48, Amylase 31, Lipase 52 L Assessment and Plan - Plan Impression: Acute on chronic respiratory failure likely secondary to COPD exacerbation with recent hospitalization for bilateral pneumonia Chronic diastolic CHF Anemia of chronic disease with iron deficiency GERD Hypertension Chronic pain Plan: Acute on chronic respiratory failure likely secondary to COPD exacerbation with recent hospitalization for bilateral pneumonia: Patient will be admitted for further evaluation and treatment. Will continue BiPAP and wean off. Will restart IV Levaquin and doxycycline. Will provide IV steroids. Will provide COPD medication. Will consult pulmonology for further recommendation. Will discuss further on recommendations for care. Place on DVT prophylaxis. Will monitor closely. Respiratory consulted. Will test for COVID. 3 prior tests have been negative. Anticipate improvement over the next 48-72 hr. Chronic diastolic CHF: Hold diuretics at this time. Will monitor closely. Anemia of chronic disease with iron deficiency: Continue medication. Will monitor closely. GERD: Continue medication Hypertension: Continue medication Chronic pain: Continue medication Discharge Plan: Home Plan to discharge in: Greater than 2 days - Advance Directives Does patient have a Living Will: Yes Does patient have a Durable POA for Healthcare: Yes - Code Status/Comfort Care Code Status Assessed: Yes (patient is full code) Time Spent Managing Pts Care (In Minutes): 55
[2020-05-14] MEDS ORDERED: CEFTRIAXONE/SWI 1gm 1 GM/10 ML SYR ONE (17:00)
--- NOTE | 2020-05-14 17:12 | EDPHYS ---
Physician Documentation [facility] Name: Allison Vickers Age: 85 yrs Sex: Female : 1935 Arrival Date: 05/14/2020 Time: 13:32 Bed 2 Private MD: ED Physician Peter Guerrero HPI: 05/14 17:12 This 85 yrs old Female presents to ER via EMS with complaints of Shortness Of kdr Breath. 17:12 The patient has shortness of breath at rest. Onset: The symptoms/episode began/occurred kdr gradually, 4 day(s) ago. Duration: The symptoms are continuous, and are steadily getting worse. The patient's shortness of breath is aggravated by exertion, light activity, is alleviated by nothing. Associated signs and symptoms: The patient has no apparent associated signs or symptoms. Severity of symptoms: At their worst the symptoms were moderate in the emergency department the symptoms are unchanged. The patient has experienced similar episodes in the past, chronically. The patient has been recently been admitted at [facility], was discharged last week, Was on abx for pneumonia on discharge. Historical: - Allergies: 13:32 Clindamycin; aa5 13:32 Codeine; aa5 - PMHx: 13:32 ADD/ADHD; Arthritis; carpal tunnel syndrome; chronic bronchitis; Chronic pain; aa5 diverticulosis; hiatal hernia; Hypertension; IRON DEFICIENCY ANEMIA; COPD; CHF; - Immunization history:: Adult Immunizations unknown. - Social history:: Smoking status: Patient denies any tobacco usage or history of. ROS: 17:25 Constitutional: Negative for fever, chills, and weight loss, Eyes: Negative for injury, kdr pain, redness, and discharge, Neck: Negative for injury, pain, and swelling, Cardiovascular: Negative for chest pain, palpitations, and edema, Abdomen/GI: Negative for abdominal pain, nausea, vomiting, diarrhea, and constipation, Back: Negative for injury and pain, : Negative for injury, bleeding, discharge, and swelling, MS/Extremity: Negative for injury and deformity, Skin: Negative for injury, rash, and discoloration, Neuro: Negative for headache, weakness, numbness, tingling, and seizure activity. Psych: Negative for depression, anxiety, suicide ideation, homicidal ideation, and hallucinations, Allergy/Immunology: Negative for hives, rash, and allergies, Endocrine: Negative for neck swelling, polydipsia, polyuria, polyphagia, and marked weight changes, Hematologic/Lymphatic: Negative for swollen nodes, abnormal bleeding, and unusual bruising. 17:25 Respiratory: Positive for cough, dyspnea on exertion, shortness of breath, at rest. Negative for hemoptysis. Exam: 17:25 Constitutional: This is a well developed, well nourished patient who is awake, alert, kdr and in mild to moderate distress. The patient is presently on BiPap Head/Face: Normocephalic, atraumatic. Eyes: Pupils equal round and reactive to light, extra-ocular motions intact. Lids and lashes normal. Conjunctiva and sclera are non-icteric and not injected. Cornea within normal limits. Periorbital areas with no swelling, redness, or edema. Neck: Trachea midline, no thyromegaly or masses palpated, and no cervical lymphadenopathy. Supple, full range of motion without nuchal rigidity, or vertebral point tenderness. No Meningismus. Chest/axilla: Normal chest wall appearance and motion. Nontender with no deformity. No lesions are appreciated. Cardiovascular: Regular rate and rhythm with a normal S1 and S2. No gallops, murmurs, or rubs. Normal PMI, no JVD. No pulse deficits. Abdomen/GI: Soft, non-tender, with normal bowel sounds. No distension or tympany. No guarding or rebound. No evidence of tenderness throughout. Back: No spinal tenderness. No costovertebral tenderness. Full range of motion. Skin: Warm, dry with normal turgor. Normal color with no rashes, no lesions, and no evidence of cellulitis. MS/ Extremity: Pulses equal, no cyanosis. Neurovascular intact. Full, normal range of motion. Neuro: Awake and alert, GCS 15, oriented to person, place, time, and situation. Cranial nerves II-XII grossly intact. Motor strength 5/5 in all extremities. Sensory grossly intact. Cerebellar exam normal. Normal gait. Psych: Awake, alert, with orientation to person, place and time. Behavior, mood, and affect are within normal limits. 17:25 Respiratory: mild respiratory distress is noted, Respirations: labored breathing, that is moderate. 18:37 ECG was reviewed by the Attending Physician. kdr Vital Signs: 13:32 BP 156 / 82; Pulse 91; Resp 28 A; Temp 97.4(A); Pulse Ox 100% on BiPAP; Pain 0/10; aa5 14:00 Weight 47.63 kg (R); aa5 14:30 Pulse Ox 91% on 30% BiPAP; aa5 14:56 BP 112 / 87; Pulse 74; Resp 20 S; Pulse Ox 86% on 30% BiPAP; aa5 15:10 Pulse Ox 94% on 35% BiPAP; aa5 15:35 BP 117 / 52; Pulse 71; Resp 18 S; Pulse Ox 99% on 35% BiPAP; aa5 16:30 BP 104 / 50; Pulse 67; Resp 18 S; Temp 97.6(A); Pulse Ox 100% on 35% BiPAP; aa5 17:30 BP 119 / 77; Pulse 72; Resp 20 S; Temp 97.2(A); Pulse Ox 98% on 35% BiPAP; aa5 18:30 BP 137 / 63; Pulse 68; Resp 18; Pulse Ox 95% on 35% BiPAP; aa5 20:04 BP 150 / 60; Pulse 72; Resp 16; Temp 97.6; Pulse Ox 96% on 6 lpm NC; sg 14:30 Dr. Guerrero notified of decreased O2 sat, DR. Guerrero states to continue to monitor and aa5 if below 90% to increase FiO2. 14:56 RT notified of decreased O2 sat aa5 Ventilator: 14:00 Fi02: 30%; aa5 14:00 Bi-PAP settings: IPAP 14, EPAP 7, FiO2 30%, Rate 14. aa5 MDM: 17:12 Patient medically screened. kdr 17:25 Data reviewed: vital signs, nurses notes, lab test result(s), EKG, radiologic studies. kdr Counseling: I had a detailed discussion with the patient and/or guardian regarding: the historical points, exam findings, and any diagnostic results supporting the discharge/admit diagnosis, lab results, radiology results, the need for further work-up and treatment in the hospital. 05/14 13:43 Order name: Amylase, Serum aa5 05/14 13:43 Order name: Basic Metabolic Panel aa5 05/14 13:43 Order name: Blood Culture Adult (2) aa5 05/14 13:43 Order name: CBC with Diff aa5 05/14 13:43 Order name: Ckmb; Complete Time: 15:47 [facility] 05/14 13:44 Order name: CPK; Complete Time: 15:47 [facility] 05/14 13:44 Order name: Lactate; Complete Time: 15:47 [facility] 05/14 13:44 Order name: LFT's; Complete Time: 15:47 [facility] 05/14 13:44 Order name: Lipase; Complete Time: 15:47 [facility] 05/14 13:44 Order name: Procalcitonin; Complete Time: 15:47 [facility] 05/14 13:44 Order name: Protime (+inr); Complete Time: 15:47 [facility] 05/14 13:44 Order name: Ptt, Activated; Complete Time: 15:47 [facility] 05/14 13:44 Order name: Troponin (emerg Dept Use Only); Complete Time: 15:47 [facility] 05/14 13:44 Order name: Urine Microscopic Only [facility] 05/14 13:44 Order name: Chest Single View XRAY [facility] 05/14 13:44 Order name: Cardiac monitoring; Complete Time: 14:32 [facility] 05/14 13:44 Order name: EKG - Nurse/Tech; Complete Time: 14:32 [facility] 05/14 13:44 Order name: Amylase; Complete Time: 15:47 [facility] 05/14 13:44 Order name: Basic Metabolic Panel; Complete Time: 15:47 [facility] 05/14 13:44 Order name: Blood Culture [facility] 05/14 13:44 Order name: CBC with Automated Diff; Complete Time: 15:47 [facility] 05/14 14:17 Order name: ABG Arterial Blood Gas; Complete Time: 15:47 [facility] 05/14 15:15 Order name: ABG Arterial Blood Gas; Complete Time: 15:47 [facility] 05/14 16:50 Order name: COVID-19 [facility] 05/14 18:11 Order name: CORONAVIRUS [facility] 05/14 19:20 Order name: SARS-COV-2 RT PCR [facility] 05/14 13:44 Order name: IV Saline Lock - Large Bore; Complete Time: 14:32 [facility] 05/14 13:44 Order name: Labs collected and sent; Complete Time: 14:32 [facility] 05/14 13:44 Order name: O2 Per Protocol; Complete Time: 14:32 [facility] 05/14 13:44 Order name: O2 Sat Monitoring; Complete Time: :32 aa EC:37 Rate is 74 beats/min. Rhythm is regular, Normal Sinus Rhythm with No ectopy. QRS Alpha kdr is Normal. PA interval is normal. QRS interval is normal. QT interval is normal. No Q waves. Clinical impression: NSR w/ Non-specific ST/T Changes. Administered Medications: 14:45 Drug: NS 0.9% (30 ml/kg) 30 ml/kg Route: IV; Rate: bolus; Site: left wrist; aa5 15:30 Follow up: IV Status: Completed infusion; IV Intake: 1000ml ; Only 1000ml administered aa5 per Dr. Guerrero VO. 16:52 Drug: Rocephin - (cefTRIAXone) 1 grams Route: IVPB; Infused Over: 30 mins; Site: left aa5 wrist; 17:00 Follow up: Response: No adverse reaction aa5 20:12 Follow up: IV Status: Completed infusion ea Disposition: 05/14/20 17:12 Hospitalization ordered by Marques Thomason for Inpatient Admission. Preliminary diagnosis are Pneumonia, unspecified organism, Shortness of breath, Respiratory failure, unspecified with hypoxia - 60% RA. - Bed requested for Telemetry/MedSurg (Inpatient). - Status is Inpatient Admission. ea - Condition is Fair. - Problem is an acute exacerbation. - Symptoms have improved. Signatures: Dispatcher [employer] EDMS Clarisse Polanco RN RN kl Gay, Steven, RN RN sg Rittger, Kevin, MD MD kdr Calderon, Audri RN RN [facility] Ofelia Mishra RN RN tl1 Leticia Ortiz RN RN ea Corrections: (The following items were deleted from the chart) 14:32 13:44 Accucheck ordered. aa5 aa5 18:05 17:12 Hospitalization Ordered by Marques Thomason DO for Inpatient Admission. Preliminary diagnosis is Pneumonia, unspecified organism; Shortness of breath; Respiratory failure, unspecified with hypoxia - 60% RA. Bed requested for Telemetry/MedSurg (Inpatient). Status is Inpatient Admission. Condition is Fair. Problem is an acute exacerbation. Symptoms have improved. kdr 19:48 18:05 05/14/2020 17:12 Hospitalization Ordered by Marques Prezas DO for Inpatient tl1 Admission. Preliminary diagnosis is Pneumonia, unspecified organism; Shortness of breath; Respiratory failure, unspecified with hypoxia - 60% RA. Bed requested for Telemetry/MedSurg (Inpatient). Status is Inpatient Admission. Condition is Fair. Problem is an acute exacerbation. Symptoms have improved. 19:50 19:48 05/14/2020 17:12 Hospitalization Ordered by Marques Thomason DO for Inpatient tl1 Admission. Preliminary diagnosis is Pneumonia, unspecified organism; Shortness of breath; Respiratory failure, unspecified with hypoxia - 60% RA. Bed requested for Telemetry/MedSurg (Inpatient). Status is Inpatient Admission. Condition is Fair. Problem is an acute exacerbation. Symptoms have improved. 1 20:06 19:50 05/14/2020 17:12 Hospitalization Ordered by Marques Thomason DO for Inpatient sg Admission. Preliminary diagnosis is Pneumonia, unspecified organism; Shortness of breath; Respiratory failure, unspecified with hypoxia - 60% RA. Bed requested for Telemetry/MedSurg (Inpatient). Status is Inpatient Admission. Condition is Fair. Problem is an acute exacerbation. Symptoms have improved. [facility] 20:13 20:06 05/14/2020 17:12 Hospitalization Ordered by Marques Thomason DO for Inpatient ea Admission. Preliminary diagnosis is Pneumonia, unspecified organism; Shortness of breath; Respiratory failure, unspecified with hypoxia - 60% RA. Bed requested for Telemetry/MedSurg (Inpatient). Status is Inpatient Admission. Condition is Fair. Problem is an acute exacerbation. Symptoms have improved.
--- NOTE | 2020-05-14 17:12 | ER ---
Nurse's Notes [facility] Name: Allison Vickers Age: 85 yrs Sex: Female : 1935 Arrival Date: 05/14/2020 Time: 13:32 Bed 2 Private MD: Diagnosis: Pneumonia, unspecified organism;Shortness of breath;Respiratory failure, unspecified with hypoxia-60% RA Presentation: 05/14 13:32 Chief complaint: EMS states: family called for difficulty breathing. EMS reports pt was aa5 60% 1 L NC upon scene arrival. Pt was placed on Bi-PAP by EMS. Pt reports dx with Pneumonia and taking antibiotics x 1 week. 13:32 Coronavirus screen: difficulty breathing, Client presents with at least one sign or aa5 symptom that may indicate coronavirus-19. Standard/surgical mask placed on the client. Provider contacted for isolation considerations. Ebola Screen: Patient negative for fever greater than or equal to 101.5 degrees Fahrenheit, and additional compatible Ebola Virus Disease symptoms. Initial Sepsis Screen: Does the patient meet any 2 criteria? RR > 20 per min. HR > 90 bpm. Yes Does the patient have a suspected source of infection? Yes: Productive cough/pneumonia. Risk Assessment: Do you want to hurt yourself or someone else? Patient reports no desire to harm self or others. Onset of symptoms was May 14, 2020. 13:32 Method Of Arrival: EMS: [facility] aa5 13:32 Acuity: JESUS 2 aa5 13:32 Care prior to arrival: IV initiated. 20 GA, in the right wrist, Glucose check: 140 aa5 Oxygen administered. via CPAP or BiPAP. Historical: - Allergies: 13:32 Clindamycin; aa5 13:32 Codeine; aa5 - PMHx: 13:32 ADD/ADHD; Arthritis; carpal tunnel syndrome; chronic bronchitis; Chronic pain; aa5 diverticulosis; hiatal hernia; Hypertension; IRON DEFICIENCY ANEMIA; COPD; CHF; - Immunization history:: Adult Immunizations unknown. - Social history:: Smoking status: Patient denies any tobacco usage or history of. Screenin:00 Abuse screen: Denies threats or abuse. Nutritional screening: Decreased appetite . aa5 Tuberculosis screening: No symptoms or risk factors identified. Fall Risk Fall in past 12 months (25 points). IV access (20 points). Total Francisco Fall Scale indicates High Risk Score (45 or more points). Fall prevention measures have been instituted. Side Rails Up X 2 Placed Close to Nursing Station. Assessment: 13:35 General: Appears uncomfortable, Behavior is cooperative. Pain: Denies pain. Neuro: aa5 Level of Consciousness is awake, alert, obeys commands, Oriented to person, place, time, situation. Cardiovascular: Heart tones S1 S2 present Rhythm is sinus rhythm. Respiratory: Reports shortness of breath cough Airway is patent Respiratory effort is labored, Respiratory pattern is tachypnea Tolerating Bi-PAP well Breath sounds with crackles bilaterally. GI: Abdomen is round Abd is soft and non tender X 4 quads. : Brief noted. EENT: No signs and/or symptoms were reported regarding the EENT system. Derm: Skin is pink, warm \\T\\ dry. Musculoskeletal: Range of motion: intact in all extremities. 14:30 Reassessment: x-ray at bedside, pt refusing chest x-ray. Pt appears upset, pt states "I aa5 want to see Dr. Flowers". Pt informed of need for x-ray and informed after results are back Dr. Guerrero will contact Dr. Flowers (PCP), pt remains upset. Emmy, x-ray tech reports pt got upset when she sat her up in the bed for chest x-ray. Pt appears confused but is A\\T\\O x person, place, situation, and time. Dr. Guerrero notified of findings and x-ray refusal. . 14:50 Reassessment: Pt appears calm and comfortable at this time. Pt cooperative and states aa5 no complaints at this time. . 14:58 Reassessment: RT at bedside repeating ABG per Dr. Guerrero . aa5 15:10 Reassessment: FiO2 increased to 35% by RT . aa5 16:50 Reassessment: Pt resting in bed with eyes closed, respirations even and unlabored, aa5 tolerating bi-pap well. . 16:55 Reassessment: COVID-19 swab collected and sent . aa5 17:30 Reassessment: Pt resting in bed with eyes closed, equal and unlabored respirations, pt aa5 tolerating bi-pap well. Pt easy to awaken to verbal stimuli. Pt states no complains at this time. . 18:30 Reassessment: Pt resting in bed with eyes closed respirations even and unlabored, aa5 tolerating bi-pap well. . 19:39 General: Appears in no apparent distress. Behavior is cooperative. Pain: Denies pain. ea Neuro: Level of Consciousness is awake, alert, obeys commands, Oriented to person, place, time, situation. Cardiovascular: Patient's skin is warm and dry. Respiratory: Airway is patent Respiratory effort is unlabored, Respiratory pattern is symmetrical, Pt currently on BiPAP. Derm: Skin is pink, warm \\T\\ dry. Musculoskeletal: Circulation, motion, and sensation intact. 19:58 Reassessment: Patient appears in no apparent distress at this time. pt removed BIPAP at sg this time, pt reports she no longer wants to wear a mask on her face. pt o2 saturation 88 % on RA, pt placed to NC at 6 lpm, o2 reading of 94% with RR of 18, pt states feeling better. Vital Signs: 13:32 BP 156 / 82; Pulse 91; Resp 28 A; Temp 97.4(A); Pulse Ox 100% on BiPAP; Pain 0/10; aa5 14:00 Weight 47.63 kg (R); aa5 14:30 Pulse Ox 91% on 30% BiPAP; aa5 14:56 BP 112 / 87; Pulse 74; Resp 20 S; Pulse Ox 86% on 30% BiPAP; aa5 15:10 Pulse Ox 94% on 35% BiPAP; aa5 15:35 BP 117 / 52; Pulse 71; Resp 18 S; Pulse Ox 99% on 35% BiPAP; aa5 16:30 BP 104 / 50; Pulse 67; Resp 18 S; Temp 97.6(A); Pulse Ox 100% on 35% BiPAP; aa5 17:30 BP 119 / 77; Pulse 72; Resp 20 S; Temp 97.2(A); Pulse Ox 98% on 35% BiPAP; aa5 18:30 BP 137 / 63; Pulse 68; Resp 18; Pulse Ox 95% on 35% BiPAP; aa5 20:04 BP 150 / 60; Pulse 72; Resp 16; Temp 97.6; Pulse Ox 96% on 6 lpm NC; sg 14:30 Dr. Guerrero notified of decreased O2 sat, DR. Guerrero states to continue to monitor and aa5 if below 90% to increase FiO2. 14:56 RT notified of decreased O2 sat aa5 ED Course: 13:32 Patient arrived in ED. iw 13:32 Peter Guerrero MD is Attending Physician. kdr 13:32 Arm band placed on Patient placed in an exam room, on a stretcher. aa5 13:32 Patient has correct armband on for positive identification. Placed in gown. Bed in low aa5 position. Call light in reach. Side rails up X2. alarm security or surveillance monitor on. Pulse ox on. NIBP on. 13:40 Inserted saline lock: 22 gauge in left wrist, using aseptic technique. Blood collected. aa5 13:40 Initial lab(s) drawn, by me, sent to lab. First set of blood cultures drawn by me. aa5 13:43 Lorene Gonzales RN is Primary Nurse. aa5 13:58 Second set of blood cultures drawn by lab staff. aa5 14:09 EKG done, by ED staff, reviewed by Peter Guerrero MD. aa5 14:15 Triage completed. aa5 15:34 Chest Single View XRAY In Process Unspecified. EDMS 17:11 Marques Thomason DO is Hospitalizing Provider. kdr 19:05 Report given to SAMANTHA Kelly. aa5 19:39 No provider procedures requiring assistance completed. Patient admitted, IV remains in ea place. Administered Medications: 14:45 Drug: NS 0.9% (30 ml/kg) 30 ml/kg Route: IV; Rate: bolus; Site: left wrist; aa5 15:30 Follow up: IV Status: Completed infusion; IV Intake: 1000ml ; Only 1000ml administered aa5 per Dr. Guerrero VO. 16:52 Drug: Rocephin - (cefTRIAXone) 1 grams Route: IVPB; Infused Over: 30 mins; Site: left aa5 wrist; 17:00 Follow up: Response: No adverse reaction aa5 20:12 Follow up: IV Status: Completed infusion ea Intake: 15:30 IV: 1000ml; Total: 1000ml. aa5 Ventilator: 14:00 Fi02: 30%; aa5 14:00 Bi-PAP settings: IPAP 14, EPAP 7, FiO2 30%, Rate 14. aa5 Outcome: 17:12 Decision to Hospitalize by Provider. kdr 19:39 Condition: stable ea 19:39 Instructed on the need for admit. 20:12 Admitted to Med/surg accompanied by tech, room 214, with oxygen, with chart, Report ea called to Report called to receiving nurse on second floor 20:13 Patient left the ED. ea Signatures: Dispatcher [employer] EDMS Santosh Ojeda, RN RN Peter Luz MD MD kdr Williams, Irene, RN RN iw Calderon, Audri, RN RN aa5 Leticia Ortiz RN RN ea Corrections: (The following items were deleted from the chart) 15:03 13:35 Respiratory: Reports shortness of breath cough Airway is patent Respiratory aa5 effort is labored, Respiratory pattern is tachypnea Breath sounds with crackles bilaterally. aa5 15:09 14:55 Reassessment: RT at bedside repeating ABG per Dr. Guerrero . aa5 aa5
[2020-05-14] MEDS ORDERED: ONDANSETRON 4 MG/2 ML VIAL IV PRN (20:33)
[2020-05-14] MEDS ORDERED: ACETAMINOPHEN 500 MG TAB PO PRN (20:33)
[2020-05-14] MEDS ORDERED: Levofloxacin500mg IV 500 MG/100 ML BAG IV SCH (20:33)
[2020-05-14] MEDS ORDERED: DOXYCYCLINE 100 MG in NA CHLORIDE 0.9% 100 ML IVPB SCH (21:00)
[2020-05-14] MEDS: ARFORMOTEROL TARTRATE 15 MCG/2 ML VIAL.NEB NEB SCH (22:10)
[2020-05-14] MEDS: ALBUTEROL 2.5 MG/3 ML NEB SOL NEB PRN (22:10)
[2020-05-14] MEDS: METHYLPREDNISOLONE 40 MG INJ IV SCH (22:10)
[2020-05-14] MEDS: lisinopriL 20 MG TAB PO SCH (22:11)
[2020-05-14] MEDS: GABAPENTIN 300 MG CAP PO SCH (22:11)
[2020-05-14] MEDS: carvediloL 12.5 MG TAB PO SCH (22:11)
[2020-05-14 22:17] LABS: CKMB Creatine Kinase MB < 1.0 ng/mL (0.3-3.6); Creatine Phosphokinase 19 U/L (26-192); Troponin I < 0.02 ng/mL (0.0-0.045)
[2020-05-14] MEDS ORDERED: DOXYCYCLINE HYCLATE 100MG INJ ONE (22:45)
[2020-05-14] MEDS ORDERED: NA CHLORIDE 0.9% 100 ML ONE (22:53)
[2020-05-15] MEDS: LORazepam 2 MG/ML VIAL IV PRN ×2 (00:01→20:04)
[2020-05-15] MEDS: METHYLPREDNISOLONE 40 MG INJ IV SCH ×2 (02:58→08:12)
[2020-05-15] MEDS: carvediloL 12.5 MG TAB PO SCH ×3 (06:00→17:22)
[2020-05-15] MEDS: PANTOPRAZOLE 40MG TABLET PO SCH ×2 (06:30→06:33)
[2020-05-15] MEDS: ARFORMOTEROL TARTRATE 15 MCG/2 ML VIAL.NEB NEB SCH ×2 (07:45→19:10)
[2020-05-15] MEDS: IPRATROPIUM BROM 0.5MG/2.5ML NEB PRN (07:45)
[2020-05-15] MEDS: ENOXAPARIN 40 MG/0.4 ML SQ SCH ×2 (08:12→08:16)
[2020-05-15] MEDS: GABAPENTIN 300 MG CAP PO SCH ×3 (08:13→20:03)
[2020-05-15] MEDS: lisinopriL 20 MG TAB PO SCH ×2 (08:13→20:03)
[2020-05-15] MEDS: FERROUS SULFATE 325 MG TAB PO SCH (08:13)
--- NOTE | 2020-05-15 08:31 | P.CNS ---
Date of Consult: 05/15/20 Primary Care Provider: Dr. Wong; Pulmonary-Dr. Curran Chief Complaint: Acute on chronic respiratory failure History of Present Illness: Patient is 85 years of age well known to be recurrent hospital admissions for COPD exacerbation with just recently here with hemoptysis discharge the call me twice that she has the coming more sleepy altered mental status he was brought here to the emergency room as found to be hypoxic hypercapnic was recen tly admitted with hemoptysis there is no evidence of pulmonary embolism she is very alert responsive was little drowsy all rating BiPAP Allergies clindamycin Allergy (Verified 04/28/20 19:09) unknown reaction codeine Allergy (Verified 04/28/20 19:09) unknown reaction Home Medications: Albuterol Sulfate [Proair Respiclick] 2 inh IH Q6H PRN 07/07/19 Furosemide 40 mg PO DAILY 07/07/19 Gabapentin 300 mg PO TID 07/07/19 Hydrocodone Bit/Acetaminophen [Hydrocodon-Acetaminophn 10-325] 1 each PO Q6H 07/07/19 Loratadine 10 mg PO DAILY 07/07/19 Pantoprazole [Protonix Tab*] 40 mg PO DAILY 07/07/19 Umeclidinium Brm/Vilanterol Tr [Anoro Ellipta 62.5-25 Mcg INH] 1 each IH DAILY 07/07/19 carvediloL [Carvedilol] 12.5 mg PO BID 07/07/19 lisinopriL [Lisinopril] 40 mg PO DAILY 07/07/19 Vit D3 5000 Intl Units 1 cap PO DAILY 01/01/20 Potassium Chloride [Klor-Con M20] 1 tab PO DAILY 03/07/20 Albuterol Inhaler [Ventolin Inhaler*] 2 puff IH Q6H PRN [email or web address] 04/29/20 Doxycycline Hyclate 100 mg PO BID 7 Days #14 tablet 04/29/20 Hydrocodone 10/APAP 325 [[place] 10/325*] 1 tab PO Q6H PRN tab 04/29/20 Levofloxacin [Levaquin] 500 mg PO DAILY 7 Days #7 tablet 04/29/20 Mometasone/Formoterol [Dulera 200 Mcg/5 Mcg Inhaler] 2 puff IH BID inhaler 04/29/20 Pantoprazole [Protonix Tab*] 40 mg PO DAILYAC tab 04/29/20 carvediloL [Coreg*] 12.5 mg PO BID 6AM 6PM tab 04/29/20 lisinopriL [Prinivil*] 40 mg PO DAILY tab 04/29/20 predniSONE [Deltasone*] 10 mg PO BID 30 Days #60 tab 04/29/20 - Past Medical/Surgical History Diabetic: No -: Hypertension -: Chronic vertebral fractures -: Former smoker -: GERD with hiatal hernia -: Anemia of chronic disease -: Chronic pain -: Diastolic CHF with pulmonary hypertension -: Carpal tunnel disease -: COPD -: Back surgery -: Appendectomy -: carpal tunnel sx -: tubal ligation Psychosocial/ Personal History: Patient is - Family History Father Medical History: Hypertension, Stroke Mother Medical History: Hypertension, Stroke Brother Medical History: Lung disease Sister Medical History: Heart disease - Social History Smoking Status: Unknown if ever smoked Alcohol use: No CD- Drugs: No Caffeine use: Yes Place of Residence: Home Review of Systems is unable to be obtained Physical Examination Temp Pulse Resp BP Pulse Ox 97.9 F 77 18 171/72 H 97 05/15/20 04:00 05/15/20 04:00 05/15/20 04:00 05/15/20 04:00 05/15/20 04:00 General: Alert, In no apparent distress Respiratory: Clear to auscultation bilaterally, Diminished Cardiovascular: No edema, Normal S1 S2 Gastrointestinal: Normal bowel sounds, Soft and benign Laboratory Data (last 24 hrs) 05/14/20 13:40: PT 11.8, INR 1.00, APTT 24.5 05/14/20 13:40: WBC 9.7, Hgb 8.5 L, Hct 28.2 L, Plt Count 308 05/14/20 13:40: Sodium 148 H, Potassium 4.5, BUN 35 H, Creatinine 0.74, Glucose 101, Total Bilirubin 0.3, AST 8 L, ALT 11 L, Alkaline Phosphatase 48, Amylase 31, Lipase 52 L - Problems (1) Respiratory failure Current Visit: Yes Status: Acute Plan: Patient is 85 years of age admitted with acute on chronic respiratory failure she has terminal COPD will qualify for a home noninvasive ventilator patient has chronic respiratory failure secondary to COPD needs known in the stain positive pressure ventilation to prevent hospitalization patient will benefit from a trilogy volume ventilator for nocturnal and daytime uses needed to decrease the risk of hospitalization home BiPAP is insufficient due to the severity of her condition patient was very hypoxic hypercapnic blood pressure is mildly elevated chest x-ray shows COPD changes no evidence of sepsis Dc antibiotics start on D5 water patient has home oxygen and bronchodilator Qualifiers: Chronicity: acute on chronic
[2020-05-15] MEDS: predniSONE 20 MG TAB PO SCH ×2 (09:00→20:04)
[2020-05-15] MEDS: D5W 1,000 ML IV SCH ×2 (09:05→20:04)
--- NOTE | 2020-05-15 13:38 | P.PN ---
Subjective Date of Service: 05/15/20 Primary Care Provider: Dr. Wong; Pulmonary-Dr. Curran Chief Complaint: Acute on chronic respiratory failure Subjective: Doing well Physical Examination - Vital Signs Temperature: 97 F Blood Pressure: 113/57 Pulse: 70 Respirations: 20 Pulse Ox (%): 97 - Physical Exam General: Alert HEENT: Atraumatic Neck: Supple Respiratory: Other (Patient on BiPAP today ) Cardiovascular: Normal pulses Neurological: Normal speech - Studies Laboratory Data (last 24 hrs) 05/14/20 13:40: PT 11.8, INR 1.00, APTT 24.5 05/14/20 13:40: WBC 9.7, Hgb 8.5 L, Hct 28.2 L, Plt Count 308 05/14/20 13:40: Sodium 148 H, Potassium 4.5, BUN 35 H, Creatinine 0.74, Glucose 101, Total Bilirubin 0.3, AST 8 L, ALT 11 L, Alkaline Phosphatase 48, Amylase 31, Lipase 52 L Medications List Reviewed: Yes Assessment & Plan Discharge Plan: Home Plan to discharge in: 48 Hours Physician Review Additional Text: Impression: Acute on chronic respiratory failure likely secondary to COPD exacerbation, end- stage disease with recent hospitalization for bilateral pneumonia Chronic diastolic CHF Anemia of chronic disease with iron deficiency GERD Hypertension Chronic pain Plan: Acute on chronic respiratory failure likely secondary to COPD exacerbation, end- stage disease, with recent hospitalization for bilateral pneumonia: Continue COPD treatment. Wean off BiPAP. Spoke with pulmonology. 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 Pulmonology recommends non invasive ventilator. Pulmonology has discontinued antibiotics as he suspects no infectious cause at this time. Will provide DVT prophylaxis. Will discuss with family about current plan of care. Will need to readdress advanced directives and advanced care planning once the patient is more alert. Chronic diastolic CHF: Continue to Hold diuretics at this time. Will monitor closely. Anemia of chronic disease with iron deficiency: Continue medication. Will monitor closely. GERD: Continue medication Hypertension: Continue medication Chronic pain: Continue medication Time Spent Managing Pts Care (In Minutes): 55
[2020-05-15] MEDS: ENSURE ENLIVE 237 ML CAN PO SCH (20:04)
[2020-05-15] MEDS: HYDROCODONE/APAP 7.5/325 MG TAB PO PRN (21:10)
[2020-05-16] MEDS: PANTOPRAZOLE 40MG TABLET PO SCH (05:34)
[2020-05-16] MEDS: carvediloL 12.5 MG TAB PO SCH ×2 (05:34→17:06)
[2020-05-16] MEDS: HYDROCODONE/APAP 7.5/325 MG TAB PO PRN ×2 (05:50→17:09)
[2020-05-16 08:15] LABS: Basophils % 0.3 % (0-1.3); Hematocrit 23.7 % (36.0-45.0)
[2020-05-16 08:23] LABS: Absolute Lymphocytes (CBC) 0.9 K/uL (0.7-4.9); Lymphocytes % 11.9 % (15.3-44.8); MPV 8.9 fL (7.6-11.3); RBC Red Blood Cell Count 3.02 M/uL (3.86-4.86)
[2020-05-16] MEDS: ENOXAPARIN 40 MG/0.4 ML SQ SCH (08:29)
[2020-05-16] MEDS: predniSONE 20 MG TAB PO SCH ×2 (08:30→20:59)
[2020-05-16] MEDS: lisinopriL 20 MG TAB PO SCH ×2 (08:30→20:59)
[2020-05-16] MEDS: FERROUS SULFATE 325 MG TAB PO SCH ×2 (08:30→20:59)
[2020-05-16] MEDS: GABAPENTIN 300 MG CAP PO SCH ×3 (08:30→20:59)
[2020-05-16] MEDS: ENSURE ENLIVE 237 ML CAN PO SCH ×2 (08:31→21:00)
[2020-05-16] MEDS: ARFORMOTEROL TARTRATE 15 MCG/2 ML VIAL.NEB NEB SCH ×2 (08:40→20:00)
[2020-05-16 08:44] LABS: BUN Blood Urea Nitrogen 40 mg/dL (7-18); Bicarbonate 34 mmol/L (21-32); CKMB Creatine Kinase MB < 1.0 ng/mL (0.3-3.6); Creatine Phosphokinase 17 U/L (26-192); Glucose Level 160 mg/dL (74-106); Magnesium 2.2 mg/dL (1.8-2.4); Potassium 4.3 mmol/L (3.5-5.1); Sodium Level 137 mmol/L (136-145); Troponin I < 0.02 ng/mL (0.0-0.045)
--- NOTE | 2020-05-16 12:12 | P.PN ---
Subjective Date of Service: 05/16/20 Primary Care Provider: Dr. Wong; Pulmonary-Dr. Curran Chief Complaint: Acute on chronic respiratory failure Subjective: Improving Physical Examination - Vital Signs Temperature: 97.5 F Blood Pressure: 142/96 Pulse: 61 Respirations: 16 Pulse Ox (%): 99 - Physical Exam General: Alert, Other (Patient more alert today.) HEENT: Atraumatic Neck: Supple Respiratory: Diminished (Bilateral), Other (Was on nasal cannula this morning) Cardiovascular: Normal pulses, Regular rate/rhythm Neurological: Normal speech, Normal strength at 5/5 x4 extr, Normal tone - Studies Medications List Reviewed: Yes Assessment & Plan Discharge Plan: Home (With home health) Plan to discharge in: 48 Hours Physician Review Additional Text: Impression: Acute on chronic respiratory failure likely secondary to COPD exacerbation, end- stage disease with recent hospitalization for bilateral pneumonia Chronic diastolic CHF Anemia of chronic disease with iron deficiency GERD Hypertension Chronic pain Plan: Acute on chronic respiratory failure likely secondary to COPD exacerbation, end- stage disease, with recent hospitalization for bilateral pneumonia: Continue COPD treatment. Wean off BiPAP. Pulmonology recommends to continue non invasive ventilator. Social work working to help with this. Physical therapy to evaluate ambulation. Will continue to readdress plan of care with family. Anticipate discharge likely in the next 48-72 hr once the non invasive ventilator can be arranged. Chronic diastolic CHF: Will consider restarting diuretic therapy at this time. Will monitor closely. Anemia of chronic disease with iron deficiency: Hemoglobin was low this morn ing. Will recheck again later. Maintain hemoglobin above 7.5. If below patient may require transfusion. GERD: Continue medication Hypertension: Continue medication Chronic pain: Continue medication Time Spent Managing Pts Care (In Minutes): 55
[2020-05-16 12:41] LABS: Hematocrit 26.9 % (36.0-45.0)
[2020-05-16] MEDS: BENZONATATE 100 MG CAP PO PRN (20:58)
[2020-05-17 04:47] LABS: Absolute Lymphocytes (CBC) 0.6 K/uL (0.7-4.9); Basophils % 0.6 % (0-1.3); Hematocrit 25.6 % (36.0-45.0); Lymphocytes % 8.4 % (15.3-44.8); MPV 8.3 fL (7.6-11.3); Magnesium 2.3 mg/dL (1.8-2.4); Potassium 4.4 mmol/L (3.5-5.1); RBC Red Blood Cell Count 3.22 M/uL (3.86-4.86)
[2020-05-17 05:08] LABS: Anisocytosis 1+; Blood Morphology Comment NOTED (NOT SEEN); Hypochromasia 1+; Platelet Estimate ADEQ
[2020-05-17 05:09] LABS: Ovalocytes 1+
[2020-05-17] MEDS: HYDROCODONE/APAP 7.5/325 MG TAB PO PRN ×3 (05:19→18:02)
[2020-05-17] MEDS: PANTOPRAZOLE 40MG TABLET PO SCH (05:20)
[2020-05-17] MEDS: carvediloL 12.5 MG TAB PO SCH ×2 (05:21→18:06)
[2020-05-17 07:01] LABS: Urine Appearance CLEAR; Urine Bilirubin NEGATIVE (NEG); Urine Blood NEGATIVE (NEG); Urine Color YELLOW; Urine Glucose NEGATIVE (NEG); Urine Microscopic Reflex NO UMIC; Urine Protein NEGATIVE (NEG); Urine Specific Gravity 1.025 (1.005-1.030); Urine Urobilinogen 0.2 mg/dL (0.2-1.0); Urine pH 5.5 (5.0-7.0)
[2020-05-17] MEDS: ALBUTEROL 2.5 MG/3 ML NEB SOL NEB PRN (08:15)
[2020-05-17] MEDS: ARFORMOTEROL TARTRATE 15 MCG/2 ML VIAL.NEB NEB SCH ×2 (08:15→20:00)
[2020-05-17] MEDS: IPRATROPIUM BROM 0.5MG/2.5ML NEB PRN (08:15)
[2020-05-17] MEDS: lisinopriL 20 MG TAB PO SCH ×2 (09:07→20:48)
[2020-05-17] MEDS: GABAPENTIN 300 MG CAP PO SCH ×3 (09:07→20:49)
[2020-05-17] MEDS: THEOPHYLLINE SR 100 MG TAB PO SCH (09:07)
[2020-05-17] MEDS: FERROUS SULFATE 325 MG TAB PO SCH ×2 (09:08→20:49)
[2020-05-17] MEDS: predniSONE 20 MG TAB PO SCH ×2 (09:09→20:49)
[2020-05-17] MEDS: ENOXAPARIN 40 MG/0.4 ML SQ SCH (09:09)
[2020-05-17] MEDS: FUROSEMIDE 20 MG TABLET PO SCH (09:09)
[2020-05-17] MEDS: ENSURE ENLIVE 237 ML CAN PO SCH ×2 (09:14→20:55)
--- NOTE | 2020-05-17 10:38 | P.PN ---
Subjective Date of Service: 05/17/20 Primary Care Provider: Dr. Wong; Pulmonary-Dr. Curran Chief Complaint: Acute on chronic respiratory failure Subjective: Improving, Doing well Physical Examination - Vital Signs Temperature: 97.8 F Blood Pressure: 144/67 Pulse: 61 Respirations: 18 Pulse Ox (%): 98 - Physical Exam General: Alert, Cooperative HEENT: Atraumatic Neck: Supple Respiratory: Clear to auscultation bilaterally, Normal air movement Cardiovascular: Normal pulses Neurological: Normal speech, Normal strength at 5/5 x4 extr, Normal tone, Normal affect - Studies Medications List Reviewed: Yes Assessment & Plan Discharge Plan: Home Plan to discharge in: 48 Hours Physician Review Additional Text: Impression: Acute on chronic respiratory failure likely secondary to COPD exacerbation, end- stage disease with recent hospitalization for bilateral pneumonia Chronic diastolic CHF Anemia of chronic disease with iron deficiency GERD Hypertension Chronic pain Plan: Acute on chronic respiratory failure likely secondary to COPD exacerbation, end- stage disease, with recent hospitalization for bilateral pneumonia: Patient doing well this time. Patient more alert. Continue COPD treatment. Wean off BiPAP. Pulmonology recommends to continue non invasive ventilator. Social work working to help with this. Physical therapy to evaluate ambulation. Will continue to readdress plan of care with family. Anticipate discharge likely in the next 48-72 hr once the non invasive ventilator can be arranged. Chronic diastolic CHF: Will start low-dose Lasix. Will monitor closely. Anemia of chronic disease with iron deficiency: Hemoglobin stable. Maintain hemoglobin above 7.5. Continue iron supplementation. GERD: Continue medication Hypertension: Continue medication Chronic pain: Continue medication Time Spent Managing Pts Care (In Minutes): 55
[2020-05-17 19:35] VITALS: BMI 16.6
[2020-05-17] MEDS: BENZONATATE 100 MG CAP PO PRN (20:49)
[2020-05-18] MEDS: HYDROCODONE/APAP 7.5/325 MG TAB PO PRN ×4 (00:02→20:40)
[2020-05-18] MEDS: PANTOPRAZOLE 40MG TABLET PO SCH (05:51)
[2020-05-18] MEDS: carvediloL 12.5 MG TAB PO SCH ×2 (05:51→17:07)
[2020-05-18] MEDS: ARFORMOTEROL TARTRATE 15 MCG/2 ML VIAL.NEB NEB SCH ×2 (08:33→20:10)
[2020-05-18] MEDS: THEOPHYLLINE SR 100 MG TAB PO SCH ×2 (09:24→12:00)
[2020-05-18] MEDS: predniSONE 20 MG TAB PO SCH (09:26)
[2020-05-18] MEDS: FERROUS SULFATE 325 MG TAB PO SCH ×2 (09:26→20:42)
[2020-05-18] MEDS: lisinopriL 20 MG TAB PO SCH ×2 (09:26→20:41)
[2020-05-18] MEDS: FUROSEMIDE 20 MG TABLET PO SCH (09:26)
[2020-05-18] MEDS: GABAPENTIN 300 MG CAP PO SCH ×3 (09:26→20:40)
[2020-05-18] MEDS: ENSURE ENLIVE 237 ML CAN PO SCH ×2 (09:27→20:43)
[2020-05-18] MEDS: ENOXAPARIN 40 MG/0.4 ML SQ SCH (09:27)
--- NOTE | 2020-05-18 10:44 | P.PN ---
Subjective Date of Service: 05/18/20 Primary Care Provider: Dr. Wong; Pulmonary-Dr. Curran Chief Complaint: Acute on chronic respiratory failure Subjective: Improving, Doing well Physical Examination - Vital Signs Temperature: 97.4 F Blood Pressure: 150/67 Pulse: 65 Respirations: 17 Pulse Ox (%): 93 - Physical Exam General: Alert, In no apparent distress, Oriented x3, Cooperative HEENT: Atraumatic Neck: Supple Respiratory: Other (Breath sounds improved) Cardiovascular: Normal pulses, Regular rate/rhythm Neurological: Normal speech, Normal strength at 5/5 x4 extr, Normal tone, Normal affect - Studies Medications List Reviewed: Yes Assessment & Plan Discharge Plan: Home Plan to discharge in: 24 Hours Physician Review Additional Text: Impression: Acute on chronic respiratory failure likely secondary to COPD exacerbation, end- stage disease with recent hospitalization for bilateral pneumonia Chronic diastolic CHF Anemia of chronic disease with iron deficiency GERD Hypertension Chronic pain Plan: Acute on chronic respiratory failure likely secondary to COPD exacerbation, end- stage disease, with recent hospitalization for bilateral pneumonia: Patient continues to improve. Continue COPD treatment. Await approval for non invasive ventilator which is recommended by pulmonology. Anticipate this will be approved tomorrow. Continue physical therapy. Anticipate discharge likely tomorrow if with non invasive ventilator in place. Continue oral steroids and oxygen. Chronic diastolic CHF: Continue with Lasix. Will monitor closely. Anemia of chronic disease with iron deficiency: Hemoglobin stable. Maintain hemoglobin above 7.5. Continue iron supplementation. GERD: Continue medication Hypertension: Continue medication Chronic pain: Continue medication Time Spent Managing Pts Care (In Minutes): 55
--- NOTE | 2020-05-18 10:57 | P.PN ---
Subjective Date of Service: 05/18/20 Primary Care Provider: Dr. Wong; Pulmonary-Dr. Curran Chief Complaint: Acute on chronic respiratory failure Subjective: Improving (Patient is doing much better on the BiPAP awaiting home setup feeling weak) Review of Systems General: Weakness Respiratory: Shortness of Breath Physical Examination - Vital Signs Temperature: 97.4 F Blood Pressure: 150/67 Pulse: 65 Respirations: 17 Pulse Ox (%): 93 - Physical Exam General: Alert, In no apparent distress, Oriented x3 Respiratory: Clear to auscultation bilaterally, Expiratory wheezes Cardiovascular: No edema, Regular rate/rhythm Gastrointestinal: Normal bowel sounds, Soft and benign - Studies Medications List Reviewed: Yes Assessment & Plan - Problems (Diagnosis) (1) Respiratory failure Current Visit: Yes Status: Acute Plan: Patient admitted with acute on chronic respiratory failure awaiting home BiPAP setup she also has microcytic anemia reduce theophylline to 200 mg daily physical therapy reduce prednisone to 10 mg twice a day Qualifiers: Chronicity: acute on chronic (2) Microcytic anemia Current Visit: Yes Status: Acute Plan: On a previous visit of ferritin level was low recommend man replacement therapy poly high risk for endoscopy or EGD check guaiacs
[2020-05-18] MEDS: predniSONE 10 MG TAB PO SCH ×2 (12:00→20:40)
[2020-05-18] MEDS: IPRATROPIUM BROM 0.5MG/2.5ML NEB PRN (20:10)
[2020-05-18] MEDS: BENZONATATE 100 MG CAP PO PRN (20:39)
[2020-05-19] MEDS: BENZONATATE 100 MG CAP PO PRN ×2 (06:34→11:53)
[2020-05-19] MEDS: PANTOPRAZOLE 40MG TABLET PO SCH (06:34)
[2020-05-19] MEDS: carvediloL 12.5 MG TAB PO SCH (06:34)
[2020-05-19] MEDS: HYDROCODONE/APAP 7.5/325 MG TAB PO PRN ×2 (06:36→11:53)
[2020-05-19] MEDS: ARFORMOTEROL TARTRATE 15 MCG/2 ML VIAL.NEB NEB SCH (07:37)
[2020-05-19] MEDS: predniSONE 10 MG TAB PO SCH (08:53)
[2020-05-19] MEDS: ENSURE ENLIVE 237 ML CAN PO SCH (08:57)
[2020-05-19] MEDS: FUROSEMIDE 20 MG TABLET PO SCH (08:58)
[2020-05-19] MEDS: ENOXAPARIN 40 MG/0.4 ML SQ SCH (08:58)
[2020-05-19] MEDS: FERROUS SULFATE 325 MG TAB PO SCH (08:58)
[2020-05-19] MEDS: GABAPENTIN 300 MG CAP PO SCH (08:59)
[2020-05-19] MEDS: lisinopriL 20 MG TAB PO SCH (09:00)
[2020-05-19] MEDS: THEOPHYLLINE SR 100 MG TAB PO SCH (09:00)
[2020-05-19 10:35] VITALS: O2SAT 94
--- NOTE | 2020-05-19 10:55 | P.DS ---
Admission Date: 05/14/20 Discharge Date: 05/19/20 Primary Care Provider: Dr. Wong; Pulmonary-Dr. Curran Disposition: DC HOME/HOME HEALTH CARE Discharge Condition: GOOD Reason for Admission: Acute on chronic respiratory failure Consultations: Pulmonary-Dr. Curran Procedures: CXR: FINDINGS: Bilateral pulmonary interstitial opacities have partially resolved The heart is mildly enlarged IMPRESSION: Partial resolution in bilateral pulmonary interstitial opacities Medical Problem List: Acute on chronic respiratory failure likely secondary to COPD exacerbation, end- stage disease with recent hospitalization for bilateral pneumonia Chronic diastolic CHF Anemia of chronic disease with iron deficiency GERD Hypertension Chronic pain Brief History of Present Illness: 85-year-old female with history of COPD, anemia of chronic disease, CHF, GERD and chronic pain. Patient recently hospitalized on 04/29/2020 for bilateral pneumonia. Patient reported increasing shortness of breath today. She reported that she evening getting short of breath after she was on her last dose of antibiotic. Patient denied any fever, chills. Some cough noted. She denies any other symptoms. She came to the ER for further evaluation. In the ER she was found to be hypoxic. Pulse oxygen saturations low. Patient was started on BiPAP. Chest x-ray showed resolving bilateral infiltrates. ABG showed pH is 7.35 with a PO2 of 57. CBC hemoglobin stable from last. White count 9.7. Sodium 148, potassium 4.5. BUN of 35, creatinine 0.7. Patient currently stable at this time on BiPAP. Patient admitted for further evaluation and treatment. When I saw the patient ER, she appeared stable on BiPAP. No other history provided. Previous hospitalization reviewed. Hospital Course: Patient presented with acute on chronic respiratory failure with hypoxia and hypercapnia. This was related to COPD exacerbation. Patient with end-stage disease. Patient recently hospitalized for bilateral pneumonia. The patient was treated in the course of her stay. Patient required BiPAP. Pulmonology was consulted. Antibiotics were initiated but discontinued by pulmonology as he felt this was all COPD related. Pulmonology recommended the patient would require noninvasive ventilator. At discharge this has been arranged. At discharge she appears to be at her baseline level. At discharge patient will continue with oxygen to maintain sats above 93%. Non invasive ventilator has been arranged. She will continue with this at home during periods of shortness of breath. The company will send a respiratory therapist to educate patient on this. At discharge patient will also continue with Trelegy 2 puffs daily, theophylline 400 mg daily and albuterol 2 puffs 3 times a day as needed for shortness of breath. The patient will also continue with prednisone 10 mg 1 pill twice daily. Recommend follow up with pulmonology within 1 week to further address her care. Patient educated on her COPD as this is end-stage. At discharge home health and physical therapy will be arranged. Patient with chronic diastolic CHF. This is remained stable. At discharge she may continue with Lasix 20 mg daily. She may continue with a 1500 cc per day fluid restriction and low-salt diet. Recommend to monitor her weight daily. If her weight increases by more than 5 lb she is to contact her PCP for further recommendation. Patient with hypertension. This has remained stable. At discharge she will continue with carvedilol 12.5 mg 1 pill twice daily and lisinopril 40 mg daily. Recommend to monitor her blood pressure daily. Recommend to maintain blood pressure less 150/80. Further adjustment can be done by her PCP. Patient with GERD. At discharge she will continue with Protonix 40 mg daily. Patient with anemia of chronic disease and iron deficiency. This has remained stable. Maintain hemoglobin above 7.5. At discharge patient will continue with iron supplementation twice daily. Recommend to recheck lab-CBC in 1-2 weeks to monitor her progress. Patient with chronic pain. At discharge she will continue her chronic pain medications including gabapentin 300 mg 3 times a day, hydrocodone as needed for severe pain and tramadol as needed for moderate pain. Further adjustment in medication can be done by her PCP. Patient has a skin tear to the back. This was addressed by nurses. Wound care was consulted. Will continue with wound care instructions. This can be followed up by home health and her physician. Vital Signs/Physical Exam: Temp Pulse Resp BP Pulse Ox 97.6 F 70 16 135/66 97 05/19/20 09:02 05/19/20 09:00 05/19/20 07:36 05/19/20 09:00 05/19/20 07:36 General: Alert, In no apparent distress, Oriented x3, Cooperative HEENT: Atraumatic Neck: Supple Respiratory: Clear to auscultation bilaterally, Normal air movement Cardiovascular: Normal pulses, Regular rate/rhythm Gastrointestinal: Normal bowel sounds, Soft and benign, Non-distended Neurological: Normal speech, Normal strength at 5/5 x4 extr, Normal tone, Normal affect Laboratory Data at Discharge: WBC 7.0 K/uL (4.3-10.9) 05/17/20 04:05 Hgb 8.0 g/dL (12.0-15.0) L 05/17/20 04:05 Hct 25.6 % (36.0-45.0) L 05/17/20 04:05 Plt Count 228 K/uL (152-406) 05/17/20 04:05 PT 11.8 SECONDS (9.5-12.5) 05/14/20 13:40 INR 1.00 05/14/20 13:40 APTT 24.5 SECONDS (24.3-36.9) 05/14/20 13:40 Sodium 142 mmol/L (136-145) 05/17/20 04:05 Potassium 4.4 mmol/L (3.5-5.1) 05/17/20 04:05 BUN 36 mg/dL (7-18) H 05/17/20 04:05 Creatinine 0.72 mg/dL (0.55-1.3) 05/17/20 04:05 Glucose 136 mg/dL (74-106) H 05/17/20 04:05 Magnesium 2.3 mg/dL (1.8-2.4) 05/17/20 04:05 Total Bilirubin 0.3 mg/dL (0.2-1.0) 05/14/20 13:40 AST 8 U/L (15-37) L 05/14/20 13:40 ALT 11 U/L (12-78) L 05/14/20 13:40 Alkaline Phosphatase 48 U/L (45-117) 05/14/20 13:40 Troponin I < 0.02 ng/mL (0.0-0.045) 05/16/20 07:27 Amylase 31 U/L (25-115) 05/14/20 13:40 Lipase 52 U/L (73-393) L 05/14/20 13:40 Home Medications: Albuterol Sulfate [Proair Hfa] 2 puff IH QID 05/15/20 Carvedilol [Coreg] 1 tab PO BIDWM 05/15/20 Ferrous Sulfate [Ferrous Sulfate*] 325 mg PO BID 05/15/20 Fluticasone/Umeclidin/Vilanter [Trelegy Ellipta 100-62.5-25] 2 puff IH DAILY 05/15/20 Furosemide [Lasix] 20 mg PO DAILY 05/15/20 Gabapentin 1 cap PO TID 05/15/20 Hydrocodone/Acetaminophen [Hydrocodone-Acetamin 10-325 mg] 1 tab PO QIDP PRN 05/15/20 Lisinopril [Zestril] 40 mg PO DAILY 05/15/20 Pantoprazole [Protonix Tab*] 40 mg PO DAILY 05/15/20 Theophylline Anhydrous [Theophylline] 400 mg PO DAILY 05/15/20 traMADol HCL [Ultram*] 50 mg PO Q8HP 05/15/20 predniSONE [Deltasone*] 10 mg PO BIDWM #60 tab 05/19/20 New Medications: predniSONE [Deltasone*] 10 mg PO BIDWM #60 tab Patient Discharge Instructions: 1. Recommend follow up with PCP in 1 week to follow up this hospitalization. 2. Patient presented with acute on chronic respiratory failure with hypoxia and hypercapnia. This was related to COPD exacerbation. Patient with end-stage disease. Patient recently hospitalized for bilateral pneumonia. The patient was treated in the course of her stay. Patient required BiPAP. Pulmonology was consulted. Antibiotics were initiated but discontinued by pulmonology as he felt this was all COPD related. Pulmonology recommended the patient would require noninvasive ventilator. At discharge this has been arranged. At discharge she appears to be at her baseline level. At discharge patient will continue with oxygen to maintain sats above 93%. Non invasive ventilator has been arranged. She will continue with this at home during periods of shortness of breath. The company will send a respiratory therapist to educate patient on this. At discharge patient will also continue with Trelegy 2 puffs daily, theophylline 400 mg daily and albuterol 2 puffs 3 times a day as needed for shortness of breath. The patient will also continue with prednisone 10 mg 1 pill twice daily. Recommend follow up with pulmonology within 1 week to further address her care. Patient educated on her COPD as this is end-stage. At discharge home health and physical therapy will be arranged. 3. Patient with chronic diastolic CHF. This is remained stable. At discharge she may continue with Lasix 20 mg daily. She may continue with a 1500 cc per day fluid restriction and low-salt diet. Recommend to monitor her weight daily. If her weight increases by more than 5 lb she is to contact her PCP for further recommendation. 4. Patient with hypertension. This has remained stable. At discharge she will continue with carvedilol 12.5 mg 1 pill twice daily and lisinopril 40 mg daily. Recommend to monitor her blood pressure daily. Recommend to maintain blood pressure less 150/80. F urther adjustment can be done by her PCP. 5. Patient with GERD. At discharge she will continue with Protonix 40 mg daily. 6. Patient with anemia of chronic disease and iron deficiency. This has remained stable. Maintain hemoglobin above 7.5. At discharge patient will continue with iron supplementation twice daily. Recommend to recheck lab-CBC in 1-2 weeks to monitor her progress. 7. Patient with chronic pain. At discharge she will continue her chronic pain medications including gabapentin 300 mg 3 times a day, hydrocodone as needed for severe pain and tramadol as needed for moderate pain. Further adjustment in medication can be done by her PCP. 8. Patient has a skin tear to the back. This was addressed by nurses. Wound care was consulted. Will continue with wound care instructions. This can be followed up by home health and her physician. Diet: AHA Activity: Fall precautions Time spent managing pt's care (in minutes): 55
[2020-05-19 14:24] VITALS: BP 112/53; TEMP 98
== END 2020-05-19 14:40 | disposition home health service (06) | DRG 189 ==
LOC: ER 13:18 → ERHOLD 16:20 → 2ND 20:07
PROVIDERS: ADMIT Family Medicine; ATTEND Family Medicine
PROC: 5A09557 Assistance with Respiratory Ventilation, Greater than 96 Consecutive Hours, Continuous Positive Airway Pressure (ICD-10-PCS; principal; 2020-05-14)
DX: J96.21 Acute and chronic respiratory failure with hypoxia (principal); I50.32 Chronic diastolic (congestive) heart failure; J44.1 Chronic obstructive pulmonary disease with (acute) exacerbation; J96.22 Acute and chronic respiratory failure with hypercapnia; I11.0 Hypertensive heart disease with heart failure; K21.9 Gastro-esophageal reflux disease without esophagitis; D50.9 Iron deficiency anemia, unspecified; D63.8 Anemia in other chronic diseases classified elsewhere; G89.29 Other chronic pain; Z88.1 Allergy status to other antibiotic agents; Z88.5 Allergy status to narcotic agent; Z79.52 Long term (current) use of systemic steroids; Z79.899 Other long term (current) drug therapy; Z79.891 Long term (current) use of opiate analgesic; Z87.891 Personal history of nicotine dependence; Z98.51 Tubal ligation status
CPT/HCPCS: 36415; 71045; 80048; 80076; 80198; 81003; 82150; 82550; 82553; 82805; 83605; 83690; 83735; 84145; 84484; 85014; 85018; 85025; 85610; 85730; 87040; 93005; 94640; 94660; 94760; 96365; 96366; 96367; 97112; 97116; 97161; 97530; 99251; 99285; J0696; J1650; J2920; J7030; J7512; J7605; U0003

== ENCOUNTER 2020-06-04 12:54 | Observation (INO) | payer OTHER ==
--- OUTSIDE RECORDS SUMMARY | 2020-06-04 12:56 | XMS REPORT | Continuity of Care Document ---
:1935 Author Organization [facility] t Address [address] [place] [address] Care Team Providers Name Role Phone Delicia LOPEZ Primary Care Physician Pob, Lab Main Attending Clinician Unavailable Problems This patient has no known problems. Allergies, Adverse Reactions, Alerts Allergy Allergy Status Severity Reaction(s) Onset Inactive Treating Comm ents Source Name Type Date Date Clinician Sisi Sears Active Other (See 0 [facility] ty to Comments) - she was Method i adverse 00:00: told not st reaction 00 to take s to by PCP drug Codeine Propensi Active Other (See [facility] ty to Comments) 03-21 allergy Method i adverse 00:00: st reaction 00 s to drug Social History Social Habit Start Date Stop Date Quantity Comments Source History of tobacco Cigarette Smoker Blanket use [facility] Sex Assigned At Blanket [facility] Cigarettes smoked 2018-04-18 2018-04-18 Blanket current (pack per 00:00:00 00:00:[address] day) - Reported Cigarette 2018-04-18 2018-04-18 Blanket pack-years 00:00:00 00:00:00 [facility] Alcohol intake 2018-04-18 2018-04-18 Current Blanket 00:00:00 00:00:00 non-drinker of [facility] alcohol (finding) Smoking Status Start Date Stop Date Source Current every day smoker 2018-04-18 00:00:00 Lolly weir [facility] Medications Ordered Filled Start Stop Current Ordering [...] 40 MG EC 00 tablet tiZANidine Yes Blanket (ZANAFLEX) 6-19 [facility] 4 MG tablet 00:00: st 00 PROAIR HFA Yes Blanket 90 5-04 [facility] mcg/actuati 00:00: st on inhaler 00 metoprolol Yes Blanket succinate 5-04 [facility] XL 00:00: st (TOPROL-XL) 00 50 mg 24 hr tablet Procedures This patient has no known procedures. Plan of Care Planned Activity Planned Date Details Comments Source Future Scheduled 2020-07-03 INFLUENZA VACCINE Nella huizar [facility] Test 00:00:00 [code = INFLUENZA VACCINE] Future Scheduled 2002 65+ PNEUMOCOCCAL Blanket [facility] Test 00:00:00 VACCINE (1 of 2 - PCV13) [code = 65+ PNEUMOCOCCAL VACCINE (1 of 2 - PCV13)] Future Scheduled 1987 SHINGLES VACCINES (#1) [place] [facility] Test 00:00:00 [code = SHINGLES VACCINES (#1)] Encounters Start End Encounter Admission Attending Care Care Encounter Source Date/Time Date/Time Type Type Clinicians Facility Department ID 2019-12-20 2019-12-20 Wrapper Cashier James Maki [facility] [id number] 14:10:01 14:34:05 Visit Lab Main [place] [id number] [place] [id number] [facility] [phone] [facility] [address] Results This patient has no known results.
--- OUTSIDE RECORDS SUMMARY | 2020-06-04 12:56 | XMS REPORT | Clinical Summary ---
:1935 Author Organization [facility] Address [address] [place] [address] Care Team Providers Name Role Phone Jose Roberto Nesbitt MD Primary Care Provider [phone] Allergies Active Allergy Reactions Severity Noted Date [...] of 2 - PCV13) 2002 INFLUENZA VACCINE 07/03/2020 Results Not on fileafter 06/04/2019 Insurance Payer Benefit Plan / Subscriber ID Effective Phone Address T ype Group Dates COMMERCIAL MISC MISC COMMERCIAL xxxxxxxxx 2017-Pres Commercial ent MEDICARE MEDICARE PART A xxxxxxxxxx 2002-Pres [place], [place] Medicare AND B ent Advance Directives For more information, please contact: [phone] Type Date Recorded Patient Traffic Or System Dispatcher Explanati on Advance Directives, Living Will and Medical Power of Filing Clerk
--- NOTE | 2020-06-04 13:25 | RAD REPORT ---
EXAM DESCRIPTION: Jairon Single View06/04/2020 1:18 pm CLINICAL HISTORY: Cough COMPARISON: May 14, 2020 FINDINGS: No significant change in mild right upper lobe opacities. Lungs are moderately hyperaerated. The heart is borderline enlarged
[2020-06-04 14:03] LABS: Absolute Lymphocytes (CBC) 1.6 K/uL (0.7-4.9); Basophils % 0.4 % (0-1.3); Hematocrit 31.1 % (36.0-45.0); Lymphocytes % 10.2 % (15.3-44.8); MPV 7.9 fL (7.6-11.3); RBC Red Blood Cell Count 3.75 M/uL (3.86-4.86)
[2020-06-04 14:05] LABS: Protime INR 0.94
[2020-06-04 14:29] LABS: Albumin 2.5 g/dL (3.4-5.0); Bilirubin Direct 0.2 mg/dL (0-0.2); Bilirubin Total 0.5 mg/dL (0.2-1.0); Magnesium 2.5 mg/dL (1.8-2.4); Protein, Total 6.3 g/dL (6.4-8.2); Troponin (Emerg Dept Use Only) 0.23 ng/mL (0.0-0.045)
[2020-06-04 14:51] LABS: Platelet Estimate ADEQ; White Blood Cell Scan OK
[2020-06-04 14:52] LABS: Blood Morphology Comment NOTED (NOT SEEN); Hypochromasia 1+
--- NOTE | 2020-06-04 15:55 | EDPHYS ---
Physician Documentation [facility] Name: Allison Vickers Age: 85 yrs Sex: Female : 1935 Arrival Date: 06/04/2020 Time: 12:59 Bed 16 Private MD: ED Physician Peter Guerrero HPI: 06/04 13:45 This 85 yrs old Female presents to ER via EMS with complaints of Fever. jr8 13:45 The patient reports fever, not measured (subjective). Onset: The symptoms/episode jr8 began/occurred acutely, yesterday. Modifying factors: there are no obvious modifying factors. Associated signs and symptoms: Pertinent positives: cough. Severity of symptoms: At their worst the symptoms were moderate in the emergency department the symptoms are unchanged. It is unknown whether or not the patient has had similar symptoms in the past. The patient has not recently seen a physician. [place] staff stated that patient has history of pneumonia and CHF in past. Started to have shortness of breath, cough , and fever since last night . Historical: - Allergies: 13:02 Clindamycin; ll1 13:02 Codeine; ll1 - PMHx: 13:02 ADD/ADHD; carpal tunnel syndrome; CHF; Arthritis; chronic bronchitis; Chronic pain; ll1 COPD; diverticulosis; hiatal hernia; Hypertension; IRON DEFICIENCY ANEMIA; - Immunization history:: Flu vaccine is up to date. - Social history:: Smoking status: Patient/guardian denies using tobacco. ROS: 13:45 Cardiovascular: Negative for chest pain, palpitations, and edema, Abdomen/GI: Negative jr8 for abdominal pain, nausea, vomiting, diarrhea, and constipation, Back: Negative for injury and pain, MS/Extremity: Negative for injury and deformity, Skin: Negative for injury, rash, and discoloration, Neuro: Negative for headache, weakness, numbness, tingling, and seizure. 13:45 Constitutional: Positive for chills, fatigue, malaise. 13:45 Respiratory: Positive for cough. Exam: 13:45 Eyes: Pupils equal round and reactive to light, extra-ocular motions intact. Lids and jr8 lashes normal. Conjunctiva and sclera are non-icteric and not injected. Cornea within normal limits. Periorbital areas with no swelling, redness, or edema. ENT: Nares patent. No nasal discharge, no septal abnormalities noted. Tympanic membranes are normal and external auditory canals are clear. Oropharynx with no redness, swelling, or masses, exudates, or evidence of obstruction, uvula midline. Mucous membranes moist. Neck: Trachea midline, no thyromegaly or masses palpated, and no cervical lymphadenopathy. Supple, full range of motion without nuchal rigidity, or vertebral point tenderness. No Meningismus. Cardiovascular: Regular rate and rhythm with a normal S1 and S2. No gallops, murmurs, or rubs. Normal PMI, no JVD. No pulse deficits. Respiratory: Lungs have equal breath sounds bilaterally, clear to auscultation and percussion. No rales, rhonchi or wheezes noted. No increased work of breathing, no retractions or nasal flaring. Abdomen/GI: Soft, non-tender, with normal bowel sounds. No distension or tympany. No guarding or rebound. No evidence of tenderness throughout. Back: No spinal tenderness. No costovertebral tenderness. Full range of motion. Skin: Warm, dry with normal turgor. Normal color with no rashes, no lesions, and no evidence of cellulitis. MS/ Extremity: Pulses equal, no cyanosis. Neurovascular intact. Full, normal range of motion. 13:45 Neuro: Orientation: to person, place, Mentation: able to follow commands, slow to respond, Memory: immediate memory is intact, remote memory is impaired, recent memory is impaired, Motor: moves all fours, Sensation: no obvious gross deficits, Gait: not tested. seizure activity, is not displayed by the patient, Abnormal movements: there are no abnormal movements. Vital Signs: 12:59 BP 133 / 68; Pulse 80; Resp 20; Temp 99.2; Pulse Ox 100% on 3 lpm NC; Weight 47.6 kg; ls4 Pain 0/10; 14:00 BP 123 / 76; Pulse 76; Resp 16; Pulse Ox 99% ; Pain 0/10; ls4 15:00 BP 122 / 74; Pulse 76; Resp 16; Pulse Ox 99% on R/A; Pain 5/10; ls4 16:00 BP 123 / 74; Pulse 75; Resp 16; Pulse Ox 99% on R/A; Pain 4/10; ls4 18:04 BP 114 / 58; Pulse 96; Resp 16; Temp 97.8(O); Pulse Ox 98% on R/A; ls4 MDM: 13:00 Patient medically screened. [facility] 15:52 Data reviewed: vital signs, nurses notes, lab test result(s), EKG, radiologic studies, jr8 plain films. Data interpreted: Pulse oximetry: on room air is 100 %. Interpretation: normal. Counseling: I had a detailed discussion with the patient and/or guardian regarding: the historical points, exam findings, and any diagnostic results supporting the discharge/admit diagnosis, lab results, radiology results, the need for further work-up and treatment in the hospital. 06/04 13:12 Order name: Basic Metabolic Panel; Complete Time: 14:32 [facility] 06/04 13:12 Order name: CBC with Diff; Complete Time: 14:54 [facility] 06/04 13:12 Order name: LFT's; Complete Time: 14:32 [facility] 06/04 13:12 Order name: Magnesium; Complete Time: 14:32 [facility] 06/04 13:12 Order name: NT PRO-BNP; Complete Time: 14:32 [facility] 06/04 13:12 Order name: PT-INR; Complete Time: 14:18 [facility] 06/04 13:12 Order name: Troponin (emerg Dept Use Only); Complete Time: 14:32 [facility] 06/04 13:12 Order name: XRAY Chest (1 view); Complete Time: 13:32 [facility] 06/04 13:12 Order name: Blood Culture Adult (2) [facility] 06/04 13:12 Order name: Procalcitonin; Complete Time: 14:54 [facility] 06/04 13:12 Order name: Urine Microscopic Only [facility] 06/04 14:31 Order name: CBC Smear Scan; Complete Time: 14:54 EDMS 06/04 16:55 Order name: Urine Dipstick--Ancillary (enter results); Complete Time: 17:34 bd 06/04 19:56 Order name: COVID-19 sg 06/04 13:12 Order name: EKG; Complete Time: 13:12 [facility] 06/04 13:12 Order name: Cardiac monitoring; Complete Time: 14:00 [facility] 06/04 13:12 Order name: EKG - Nurse/Tech; Complete Time: 14:00 [facility] 06/04 13:12 Order name: IV Saline Lock; Complete Time: 14:00 [facility] 06/04 13:12 Order name: Labs collected and sent; Complete Time: 14:00 [facility] 06/04 13:12 Order name: O2 Per Protocol; Complete Time: 14:00 [facility] 06/04 13:12 Order name: O2 Sat Monitoring; Complete Time: 14:00 8 Administered Medications: 16:29 Drug: Lovenox 1 mg/kg Route: Sub-Q; Site: right lower abdomen; ls4 16:29 Drug: Rocephin - (cefTRIAXone) 1 grams Route: IVPB; Infused Over: 10 mins; Site: right ls4 antecubital; 16:30 Drug: Lasix 40 mg Route: IVP; Site: right antecubital; ls4 Disposition: 06/04/20 15:55 Hospitalization ordered by Marques Thomason for Observation. Preliminary diagnosis is Acute combined systolic (congestive) and diastolic (congestive) heart failure. - Bed requested for Telemetry/MedSurg (observation). - Status is Observation. ls4 - Condition is Stable. - Problem is new. - Symptoms are unchanged. Signatures: Dispatcher [employer] EDMS Niki Borden bd Yariel Light PA PA jr8 Daphney Wolfe RN RN ls4 Yareli Polanco RN RN ll1 Corrections: (The following items were deleted from the chart) 17:51 15:55 Hospitalization Ordered by Marques Thomason DO for Observation. Preliminary bd diagnosis is Acute combined systolic (congestive) and diastolic (congestive) heart failure. Bed requested for Telemetry/MedSurg (observation). Status is Observation. Condition is Stable. Problem is new. Symptoms are unchanged. jr8 18:00 17:51 06/04/2020 15:55 Hospitalization Ordered by Marques Thomason DO for Observation. ls4 Preliminary diagnosis is Acute combined systolic (congestive) and diastolic (congestive) heart failure. Bed requested for Telemetry/MedSurg (observation). Status is Observation. Condition is Stable. Problem is new. Symptoms are unchanged. bd 20:12 18:00 06/04/2020 15:55 Hospitalization Ordered by Marques Thomason DO for Observation. ls4 Preliminary diagnosis is Acute combined systolic (congestive) and diastolic (congestive) heart failure. Bed requested for Telemetry/MedSurg (observation). Status is Observation. Condition is Stable. Problem is new. Symptoms are unchanged. ls4
--- NOTE | 2020-06-04 15:55 | ER ---
Nurse's Notes [facility] Name: Allison Vickers Age: 85 yrs Sex: Female : 1935 Arrival Date: 06/04/2020 Time: 12:59 Bed 16 Private MD: Diagnosis: Acute combined systolic (congestive) and diastolic (congestive) heart failure Presentation: 06/04 12:59 Chief complaint: Patient states: SOB, cough, fever since last night. O2 93-94% 3-4L per ll1 NC all the time at home. Fever 101.3 oral for EMS. Unable to get IV. Coronavirus screen: Client denies travel out of the [place] in the last 14 days. cough unrelated to allergies, difficulty breathing, fever, Client presents with at least one sign or symptom that may indicate coronavirus-19. Standard/surgical mask placed on the client. The client reports previous COVID testing was negative. last week. Ebola Screen: Patient denies travel to an Ebola-affected area in the 21 days before illness onset. Initial Sepsis Screen: Does the patient meet any 2 criteria? No. Patient's initial sepsis screen is negative. Risk Assessment: Do you want to hurt yourself or someone else? Patient reports no desire to harm self or others. Onset of symptoms was June 03, 2020. 12:59 Method Of Arrival: EMS ll1 12:59 Acuity: JESUS 3 ll1 14:56 Initial Sepsis Screen: Does the patient have a suspected source of infection? No. ls4 Patient's initial sepsis screen is negative. Triage Assessment: 12:01 General: Appears uncomfortable. General: Appears in no apparent distress. unkempt, ls4 Behavior is fussy. Neuro: Level of Consciousness is awake, alert, obeys commands, Oriented to person. Cardiovascular: Chest pain is denied. Respiratory: Airway is patent Respiratory effort is even, unlabored, shallow, Respiratory pattern is regular. Historical: - Allergies: 13:02 Clindamycin; ll1 13:02 Codeine; ll1 - PMHx: 13:02 ADD/ADHD; carpal tunnel syndrome; CHF; Arthritis; chronic bronchitis; Chronic pain; ll1 COPD; diverticulosis; hiatal hernia; Hypertension; IRON DEFICIENCY ANEMIA; - Immunization history:: Flu vaccine is up to date. - Social history:: Smoking status: Patient/guardian denies using tobacco. Screenin:23 Abuse screen: Denies threats or abuse. Denies injuries from another. Nutritional ls4 screening: No deficits noted. Tuberculosis screening: No symptoms or risk factors identified. Fall Risk None identified. Assessment: 14:20 General: Appears emaciated, malnourished, Behavior is fussy. Pain: Complains of pain in ls4 thoracic area Pain currently is 5 out of 10 on a pain scale. Neuro: Level of Consciousness is awake, alert, obeys commands, Oriented to person. Cardiovascular: Capillary refill < 3 seconds Patient's skin is warm and dry. Respiratory: Airway is patent Respiratory effort is even, unlabored, shallow, Respiratory pattern is regular. Derm: Decubitus located on THORACIC SPINE. 18:31 Reassessment: Report to Marcus SINGH. ls4 Vital Signs: 12:59 BP 133 / 68; Pulse 80; Resp 20; Temp 99.2; Pulse Ox 100% on 3 lpm NC; Weight 47.6 kg; ls4 Pain 0/10; 14:00 BP 123 / 76; Pulse 76; Resp 16; Pulse Ox 99% ; Pain 0/10; ls4 15:00 BP 122 / 74; Pulse 76; Resp 16; Pulse Ox 99% on R/A; Pain 5/10; ls4 16:00 BP 123 / 74; Pulse 75; Resp 16; Pulse Ox 99% on R/A; Pain 4/10; ls4 18:04 BP 114 / 58; Pulse 96; Resp 16; Temp 97.8(O); Pulse Ox 98% on R/A; ls4 ED Course: 12:59 Patient arrived in ED. ll1 13:00 Yariel Light PA is PHCP. jr8 13:00 Peter Guerrero MD is Attending Physician. jr8 13:01 Triage completed. ll1 13:03 Arm band placed on Patient placed in an exam room, on a stretcher. ll1 13:03 Patient has correct armband on for positive identification. Bed in low position. Call ls4 light in reach. Side rails up X 1. air sampling and monitoring on. Pulse ox on. NIBP on. 13:03 Warm blanket given. Verbal reassurance given. ls4 13:18 XRAY Chest (1 view) In Process Unspecified. EDMS 13:59 EKG done, by ED staff, reviewed by Yariel CATALAN. jp3 14:10 Inserted saline lock: 24 gauge in right antecubital area, using aseptic technique. ls4 Blood collected. Oxygen administration via nasal cannula \T\ 3L/min. 14:20 Daphney Wolfe, RN is Primary Nurse. ls4 14:27 No provider procedures requiring assistance completed. ls4 15:55 Marques Thomason DO is Hospitalizing Provider. jr8 Administered Medications: 16:29 Drug: Lovenox 1 mg/kg Route: Sub-Q; Site: right lower abdomen; ls4 16:29 Drug: Rocephin - (cefTRIAXone) 1 grams Route: IVPB; Infused Over: 10 mins; Site: right ls4 antecubital; 16:30 Drug: Lasix 40 mg Route: IVP; Site: right antecubital; ls4 Outcome: 15:55 Decision to Hospitalize by Provider. jr8 20:12 Patient left the ED. ls4 Signatures: Dispatcher [employer] EDWI Yariel Light PA PA jr8 David Krueger jp3 Daphney Wolfe, RN RN ls4 Yareli Polanco RN RN ll1 Corrections: (The following items were deleted from the chart) 16:10 12:59 BP 133 / 68; Pulse 80bpm; Resp 20bpm; Pulse Ox 100% 3 lpm Nasal Cannula; Temp ls4 99.2F; Pain 0/10; ll1
[2020-06-04] MEDS ORDERED: CEFTRIAXONE/SWI 1gm 1 GM/10 ML SYR ONE (16:28)
[2020-06-04] MEDS ORDERED: FUROSEMIDE 40 MG/4 ML VIAL ONE (16:28)
[2020-06-04] MEDS ORDERED: ENOXAPARIN 60 MG/0.6 ML SQ ONE (16:29)
[2020-06-04 17:33] LABS: Urine Blood NEGATIVE (NEG); Urine Glucose NEGATIVE (NEG); Urine Protein NEGATIVE (NEG); Urine pH 8.5 (5.0-7.0)
[2020-06-04] MEDS ORDERED: ACETAMINOPHEN 500 MG TAB PO PRN (18:28)
[2020-06-04] MEDS ORDERED: ONDANSETRON 4 MG/2 ML VIAL IV PRN (18:28)
--- NOTE | 2020-06-04 18:50 | P.HP ---
Certification for Inpatient Patient admitted to: Observation With expected LOS: <2 Midnights Patient will require the following post-hospital care: None Practitioner: I am a practitioner with admitting privileges, knowledge of patient current condition, hospital course, and medical plan of care. Services: Services provided to patient in accordance with Admission requirements found in Title 42 Section 412.3 of the Code of Federal Regulations Patient History Date of Service: 06/04/20 Primary Care Provider: Dr. Valdez Reason for admission: Altered mental status History of Present Illness: 85-year-old female with history of COPD, CHF, anemia, GERD, hypertension and chronic pain. Patient presented to the emergency room with some altered mental status changes. Further history came from the daughter who reported that over the past several day she has been having some shortness of breath and edema to the lower extremity. She noted that the patient was lethargic this morning. No reports of fever, chills, or significant shortness of breath noted she came to the ER for further evaluation. Patient recently hospitalized in May for acute respiratory failure related to COPD exacerbation. Vital signs stable. White count 15.3. Hemoglobin 9.4. Sodium 143, potassium 5. BUN of 28, creatinine 0.85 with a GFR 64. Glucose 74. Magnesium 2.5. Troponin elevated at 0.23. Pro calcitonin unremarkable. BNP slightly elevated. Chest x-ray unchanged from prior. Urinalysis negative. Patient given IV Lasix in the emergency room. Patient admitted for further evaluation and observation. Allergies clindamycin Allergy (Verified 04/28/20 19:09) unknown reaction codeine Allergy (Verified 04/28/20 19:09) unknown reaction Home medications list reviewed: Yes Home Medications: Albuterol Sulfate [Proair Hfa] 2 puff IH QID 05/15/20 Carvedilol [Coreg] 1 tab PO BIDWM 05/15/20 Ferrous Sulfate [Ferrous Sulfate*] 325 mg PO BID 05/15/20 Fluticasone/Umeclidin/Vilanter [Trelegy Ellipta 100-62.5-25] 2 puff IH DAILY 05/15/20 Furosemide [Lasix] 20 mg PO DAILY 05/15/20 Gabapentin 1 cap PO TID 05/15/20 Hydrocodone/Acetaminophen [Hydrocodone-Acetamin 10-325 mg] 1 tab PO QIDP PRN 05/15/20 Lisinopril [Zestril] 40 mg PO DAILY 05/15/20 Pantoprazole [Protonix Tab*] 40 mg PO DAILY 05/15/20 Theophylline Anhydrous [Theophylline] 400 mg PO DAILY 05/15/20 traMADol HCL [Ultram*] 50 mg PO Q8HP 05/15/20 predniSONE [Deltasone*] 10 mg PO BIDWM #60 tab 05/19/20 - Past Medical/Surgical History Diabetic: No -: Hypertension -: Chronic vertebral fractures -: Former smoker -: GERD with hiatal hernia -: Anemia of chronic disease -: Chronic pain -: Diastolic CHF with pulmonary hypertension -: Carpal tunnel disease -: COPD, end-stage -: Back surgery -: Appendectomy -: carpal tunnel sx -: tubal ligation Psychosocial/ Personal History: Patient is - Family History Father -: Hypertension, Stroke Mother -: Hypertension, Stroke Brother -: Lung disease Sister -: Heart disease - Social History Smoking Status: Former smoker Alcohol use: No CD- Drugs: No Caffeine use: Yes Place of Residence: Home Review of Systems General: Weakness, As per HPI (Edema) Eyes: As per HPI ENT: As per HPI Respiratory: As per HPI Cardiovascular: Edema Gastrointestinal: Unremarkable Genitourinary: Unremarkable Musculoskeletal: Unremarkable Integumentary: Unremarkable Neurological: Unremarkable Lymphatics: Unremarkable Physical Examination - Physical Exam General: Alert, In no apparent distress, Cooperative HEENT: Atraumatic Neck: Supple Respiratory: Crackles/rales Cardiovascular: Normal pulses, Regular rate/rhythm Gastrointestinal: Normal bowel sounds, Soft and benign, Non-distended, No m asses, No rebound, No guarding Integumentary: No erythema, No warmth, No cyanosis, Tenderness/swelling (Edema to the lower extremities noted) Neurological: Normal speech, Normal strength at 5/5 x4 extr, Normal tone, Normal affect - Studies Laboratory Data (last 24 hrs) 06/04/20 13:51: PT 11.1, INR 0.94 06/04/20 13:51: WBC 15.3 H, Hgb 9.4 L, Hct 31.1 L, Plt Count 244 06/04/20 13:51: Sodium 143, Potassium 5.0, BUN 28 H, Creatinine 0.85, Glucose 74, Magnesium 2.5 H, Total Bilirubin 0.5, AST 10 L, ALT 12, Alkaline Phosphatase 55 Assessment and Plan - Plan Impression: Acute encephalopathy likely metabolic related to acute on chronic diastolic CHF with elevated troponin likely ischemic demand COPD end-stage on oxygen with non invasive ventilator at home Anemia of chronic disease GERD Hypertension Chronic pain Plan: Patient will be admitted for further evaluation and treatment. Continue IV diuretic therapy. Will teach on fluid restriction. Previous echo shows ejection fraction 76% with diastolic dysfunction. Restart home medication. Will provide medication for COPD. Will provide prednisone. Maintain sats above 93%. Patient uses home oxygen. She also has a non invasive ventilator. No evidence of infection. Will continue to monitor closely. Will consult cardiology for further recommendation on CHF. Doubt no further cardiac in tervention. Await further recommendations from cardiology. Continue home medications including carvedilol, lisinopril. Will provide aspirin. Provide DVT prophylaxis. Continue monitor and adjust. Reassess tomorrow. Discharge Plan: Home Plan to discharge in: 24 Hours - Advance Directives Does patient have a Living Will: Yes Does patient have a Durable POA for Healthcare: Yes - Code Status/Comfort Care Code Status Assessed: Yes (Patient full code) Time Spent Managing Pts Care (In Minutes): 55
[2020-06-04] MEDS: ENOXAPARIN 40 MG/0.4 ML SQ SCH (19:00)
[2020-06-04] MEDS: carvediloL 12.5 MG TAB PO SCH (19:00)
[2020-06-04] MEDS: ARFORMOTEROL TARTRATE 15 MCG/2 ML VIAL.NEB NEB SCH (20:25)
[2020-06-04 21:24] LABS: CKMB Creatine Kinase MB < 1.0 ng/mL (0.3-3.6); Creatine Phosphokinase 29 U/L (26-192); Troponin I 0.25 ng/mL (0.0-0.045)
[2020-06-04 21:50] VITALS: BMI 18.4
[2020-06-04] MEDS: predniSONE 10 MG TAB PO SCH (21:53)
[2020-06-05] MEDS: ALBUTEROL 2.5 MG/3 ML NEB SOL NEB PRN ×2 (00:05→08:01)
[2020-06-05] MEDS: IPRATROPIUM BROM 0.5MG/2.5ML NEB PRN ×2 (00:05→08:01)
[2020-06-05] MEDS: carvediloL 12.5 MG TAB PO SCH (05:20)
[2020-06-05 05:34] LABS: Absolute Lymphocytes (CBC) 0.6 K/uL (0.7-4.9); Basophils % 0.3 % (0-1.3); Hematocrit 27.9 % (36.0-45.0); Lymphocytes % 5.8 % (15.3-44.8); MPV 8.6 fL (7.6-11.3)
[2020-06-05 06:27] LABS: BUN Blood Urea Nitrogen 27 mg/dL (7-18); Bicarbonate 36 mmol/L (21-32); CKMB Creatine Kinase MB < 1.0 ng/mL (0.3-3.6); Creatine Phosphokinase 24 U/L (26-192); Glucose Level 104 mg/dL (74-106); HDL Cholesterol 69 mg/dL (40-60); LDL Cholesterol, Calculated 46 (<130); Magnesium 2.2 mg/dL (1.8-2.4); Potassium 4.3 mmol/L (3.5-5.1); Sodium Level 141 mmol/L (136-145); Troponin I 0.16 ng/mL (0.0-0.045)
[2020-06-05] MEDS: ARFORMOTEROL TARTRATE 15 MCG/2 ML VIAL.NEB NEB SCH (08:01)
--- NOTE | 2020-06-05 08:17 | EKG ---
Test Date: 2020-06-04 Test Time: 13:55:30 Otologist: REBEL MEASUREMENT RESULTS: Intervals: Rate: 85 [place]: 132 QRSD: 66 QT: 334 QTc: 397 [place]: P: 90 [place]: 132 QRS: 76 T: 65 INTERPRETIVE STATEMENTS: Normal sinus rhythm Septal infarct, age undetermined Abnormal ECG Compared to ECG 05/14/2020 21:56:11 Myocardial infarct finding now present Electronically Signed On 06-05-20 08:16:31 CDT by Randall Brown
--- NOTE | 2020-06-05 08:28 | P.DS ---
Admission Date: 06/04/20 Discharge Date: 06/05/20 Primary Care Provider: Dr. Valdez; Cardiology-Dr. Ash Disposition: DC HOME/HOME HEALTH CARE Discharge Condition: GOOD Reason for Admission: Altered mental status Consultations: Cardiology-Dr. Brown Procedures: CXR: COMPARISON: May 14, 2020 FINDINGS: No significant change in mild right upper lobe opacities. Lungs are moderately hyperaerated. The heart is borderline enlarged ECHO 04/2020: EF 75% LEFT VENTRICULAR WALL MOTION: NORMAL. DOPPLER/COLOR FLOW: NORMAL. COMMENTS: NORMAL 2D ECHO WITH DOPPLER. NO WALL MOTION ABNORMALITY. NO EFFUSION. 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 Patient presented to the emergency room with some altered mental status changes. Further history came from the daughter who reported that over the past several day she has been having some shortness of breath and edema to the lower extremity. She noted that the patient was lethargic this morning. No reports of fever, chills, or significant shortness of breath noted she came to the ER for further evaluation. Patient recently hospitalized in May for acute respiratory failure related to COPD exacerbation. Vital signs stable. White count 15.3. Hemoglobin 9.4. Sodium 143, potassium 5. BUN of 28, creatinine 0.85 with a GFR 64. Glucose 74. Magnesium 2.5. Troponin elevated at 0.23. Pro calcitonin unremarkable. BNP slightly elevated. Chest x-ray unchanged from prior. Urinalysis negative. Patient given IV Lasix in the emergency room. Patient admitted for further evaluation and observation. Hospital Course: Patient presented with altered mental status likely metabolic secondary to acute on chronic diastolic CHF. Patient's daughter had reported increasing edema to the lower extremities. Some shortness of breath also noted. Patient was evaluated the emergency room. Patient given IV Lasix with improvement. Troponin slightly elevated. Likely ischemic demand. Cardiology was consulted to further evaluate. No further intervention was required. Recent echocardiogram shows ejection fraction 76%. Diastolic dysfunction noted. Patient was recently seen for COPD exacerbation. Her diuretic therapy had been decrease at that time. Patient was taking Lasix 20 mg daily. At discharge she is without significant shortness of breath. Edema improved. At discharge she will continue with a 1500 cc per day fluid restriction and low-salt diet. Recommend to monitor her weight daily. If her weight increases by more than 5 she is to contact cardiology or her PCP to further address. At discharge she w ill continue with Lasix 40 mg 1 pill daily. If with increasing edema and shortness of breath patient may require twice daily dosing. This can be further managed by Cardiology or PCP. Recommend follow up with cardiology within 1 week to follow up this hospitalization. Patient will continue with home oxygen to maintain sats above 90%. Patient with underlying COPD. This is chronic. This appears stable at this time. Patient with end-stage disease on chronic steroid, home oxygen and NIV. At discharge she will continue with Trelegy 2 puffs daily, Pro air 2 puffs 3 times a day as needed for shortness of breath and Theophyline 400 mg daily. Recommend to maintain sats above 90%. Patient will continue with oxygen at home. She may use NIV at bedtime. Recommend follow up with pulmonology in 1 week to follow up her care. Further adjustment in her medication can be done by pulmonology. Patient with hypertension. This has remained stable. At discharge she will continue with carvedilol 12.5 mg 1 pill twice daily and lisinopril 40 mg daily. Recommend to maintain blood pressure less 150/80. Further adjustment may be required. Medication may need to be held if blood pressure less than 110. Recommend follow up with PCP in cardiology to further monitor and address. Patient with GERD. At discharge she will continue with Protonix 40 mg daily. Patient with anemia of chronic disease. Patient with iron and B12 deficiency. At discharge she will continue with iron 325 mg 1 pill twice daily and vitamin B12 supplementation daily. Recommend to recheck lab-CBC, iron and B12 in 1 m [facility] to monitor her care. Patient with chronic pain. Patient takes tramadol 50 mg 1 pill 3 times a day as needed for pain and hydrocodone 10/325 mg every 4 hr as needed for pain. Recommend to use tramadol for mild pain and hydrocodone for severe pain. May need to hold medication if with increase sedation. It would benefit her to follow up with PCP to wean off pain medication entirely. This can be further addressed by her PCP. Other consideration is to establish care with chronic pain management to further manage. Patient will continue with home health at discharge. Vital Signs/Physical Exam: Temp Pulse Resp BP Pulse Ox 97.3 F 70 18 103/53 L 94 06/05/20 06:00 06/05/20 06:00 06/05/20 06:00 06/05/20 06:00 06/05/20 06:00 General: Alert, In no apparent distress, Oriented x3, Cooperative HEENT: Atraumatic Neck: Supple Respiratory: Clear to auscultation bilaterally, Normal air movement Cardiovascular: Normal pulses, Regular rate/rhythm Gastrointestinal: Normal bowel sounds, Soft and benign, Non-distended Integumentary: No tenderness/swelling, No erythema, No warmth, No cyanosis Neurological: Normal speech, Normal strength at 5/5 x4 extr, Normal tone, Normal affect Laboratory Data at Discharge: WBC 10.8 K/uL (4.3-10.9) D 06/05/20 04:59 Hgb 8.8 g/dL (12.0-15.0) L 06/05/20 04:59 Hct 27.9 % (36.0-45.0) L 06/05/20 04:59 Plt Count 207 K/uL (152-406) 06/05/20 04:59 PT 11.1 SECONDS (9.5-12.5) 06/04/20 13:51 INR 0.94 06/04/20 13:51 Sodium 141 mmol/L (136-145) 06/05/20 04:59 Potassium 4.3 mmol/L (3.5-5.1) 06/05/20 04:59 BUN 27 mg/dL (7-18) H 06/05/20 04:59 Creatinine 0.64 mg/dL (0.55-1.3) 06/05/20 04:59 Glucose 104 mg/dL (74-106) 06/05/20 04:59 Magnesium 2.2 mg/dL (1.8-2.4) 06/05/20 04:59 Total Bilirubin 0.5 mg/dL (0.2-1.0) 06/04/20 13:51 AST 10 U/L (15-37) L 06/04/20 13:51 ALT 12 U/L (12-78) 06/04/20 13:51 Alkaline Phosphatase 55 U/L (45-117) 06/04/20 13:51 Troponin I 0.16 ng/mL (0.0-0.045) H 06/05/20 04:59 Triglycerides 77 mg/dL (<150) 06/05/20 04:59 Cholesterol 130 mg/dL (<200) 06/05/20 04:59 HDL Cholesterol 69 mg/dL (40-60) H 06/05/20 04:59 Cholesterol/HDL Ratio 1.88 06/05/20 04:59 Home Medications: Albuterol Sulfate [Proair Hfa] 2 puff IH QID 05/15/20 Carvedilol [Coreg] 1 tab PO BIDWM 05/15/20 Ferrous Sulfate [Ferrous Sulfate*] 325 mg PO BID 05/15/20 Fluticasone/Umeclidin/Vilanter [Trelegy Ellipta 100-62.5-25] 2 puff IH DAILY 05/15/20 Gabapentin 1 cap PO TID 05/15/20 Hydrocodone/Acetaminophen [Hydrocodone-Acetamin 10-325 mg] 1 tab PO QIDP PRN 05/15/20 Lisinopril [Zestril] 40 mg PO DAILY 05/15/20 Pantoprazole [Protonix Tab*] 40 mg PO DAILY 05/15/20 Theophylline Anhydrous [Theophylline] 400 mg PO DAILY 05/15/20 traMADol HCL [Ultram*] 50 mg PO Q8HP 05/15/20 predniSONE [Deltasone*] 10 mg PO BIDWM #60 tab 05/19/20 Furosemide [Lasix] 40 mg PO DAILY #30 06/05/20 Loratadine [Claritin*] 1 tab PO DAILY 06/05/20 Mv-Mn/Iron/Folic Acid/Herb 190 [Vitamin D3 Complete Caplet] 1 tab PO DAILY 06/05/20 New Medications: Furosemide [Lasix] 40 mg PO DAILY #30 Patient Discharge Instructions: 1. Follow up with PCP in 1 week to follow up this hospitalization. 2. Patient presented with altered mental status likely metabolic secondary to acute on chronic diastolic CHF. Patient's daughter had reported increasing edema to the lower extremities. Some shortness of breath also noted. Patient was evaluated the emergency room. Patient given IV Lasix with improvement. Troponin slightly elevated. Likely ischemic demand. Cardiology was consulted to further evaluate. No further intervention was required. Recent echocardiogram shows ejection fraction 76%. Diastolic dysfunction noted. Patient was recently seen for COPD exacerbation. Her diuretic therapy had been decrease at that time. Patient was taking Lasix 20 mg daily. At discharge she is without significant shortness of breath. Edema improved. At discharge she will continue with a 1500 cc per day fluid restriction and low-salt diet. Recommend to monitor her weight daily. If her weight increases by more than 5 she is to contact cardiology or her PCP to further address. At discharge she will continue with Lasix 40 mg 1 pill daily. If with increasing edema and shortness of breath patient may require twice daily dosing. This can be further managed by Cardiology or PCP. Recommend follow up with cardiology within 1 week to follow up this hospitalization. Patient will continue with home oxygen to maintain sats above 90%. 3. Patient with underlying COPD. This is chronic. This appears stable at this time. Patient with end-stage disease on chronic steroid, home oxygen and NIV. At discharge she will continue with Trelegy 2 puffs daily, Pro air 2 puffs 3 times a day as needed for shortness of breath and Theophyline 400 mg daily. Recommend to maintain sats above 90%. Patient will continue with oxygen at home. She may use NIV at bedtime. Recommend follow up with pulmonology in 1 week to follow up her care. Further adjustment in her medication can be done by pulmonology. 4. Patient with hypertension. This has remained stable. At discharge she will continue with carvedilol 12.5 mg 1 pill twice daily and lisinopril 40 mg daily. Recommend to maintain blood pressure less 150/80. Further adjustment may be required. Medication may need to be held if blood pressure less than 110. Recommend follow up with PCP in cardiology to further monitor and address. 5. Patient with GERD. At discharge she will continue with Protonix 40 mg daily. 6. Patient with anemia of chronic disease. Patient with iron and B12 deficiency. At discharge she will continue with iron 325 mg 1 pill twice daily and vitamin B12 supplementation daily. Recommend to recheck lab-CBC, iron and B12 in 1 month to monitor her care. 7. Patient with chronic pain. Patient takes tramadol 50 mg 1 pill 3 times a day as needed for pain and hydrocodone 10/325 mg every 4 hr as needed for pain. Recommend to use tramadol for mild pain and hydrocodone for severe pain. May need to hold medication if with increase sedation. It would benefit her to follow up with PCP to wean off pain medication entirely. This can be further addressed by her PCP. Other consideration is to establish care with chronic pain management to further manage. 8. Patient will continue with home health at discharge. Diet: AHA Activity: Fall precautions Time spent managing pt's care (in minutes): 55
[2020-06-05 08:56] VITALS: O2SAT 95
--- NOTE | 2020-06-05 08:56 | RAD REPORT ---
EXAM DESCRIPTION: RAD - Chest Single View - 06/05/2020 6:52 am CLINICAL HISTORY: follow up CHF Chest pain. COMPARISON: Chest Single View dated 06/04/2020; Chest Single View dated 05/14/2020; Chest Single View d ated 04/28/2020; Chest Single View dated 03/21/2020 FINDINGS: Portable technique limits examination quality. Mild bilateral interstitial lung opacities are again seen, without significant change since preceding day's study. The heart is normal in size. No displaced fractures.Small hiatal hernia. IMPRESSION: Stable chest since preceding day's examination.
[2020-06-05] MEDS ORDERED: THIAMINE HCL 100 MG TABLET PO SCH (09:00)
[2020-06-05] MEDS ORDERED: FOLIC ACID 1 MG TABLET PO SCH (09:00)
[2020-06-05] MEDS ORDERED: ASPIRIN 81 MG CHEWABLE TABLET PO SCH (09:00)
[2020-06-05] MEDS ORDERED: FUROSEMIDE 20 MG/ 2ML VIAL IV SCH (09:00)
[2020-06-05] MEDS ORDERED: lisinopriL 20 MG TAB PO SCH (09:00)
[2020-06-05 09:08] VITALS: BP 146/66
[2020-06-05] MEDS: ENOXAPARIN 40 MG/0.4 ML SQ SCH (09:08)
[2020-06-05] MEDS: predniSONE 10 MG TAB PO SCH (09:08)
[2020-06-05 09:52] VITALS: TEMP 97.8
--- NOTE | 2020-06-08 12:02 | CON ---
Date of Consultation: 06/05/2020 Reason For Consultation: Altered mental status and elevated troponin. History Of Present Illness: Ms. Vickers is an 85-year-old woman with a history of diastolic congestive heart failure, pulmonary hypertension, COPD, anemia, hypertension, gastroesophageal reflux, and atte ntion deficit disorder. She came in with fever, altered mental status, was found to have an elevated troponin of 0.6, and we were consulted. The patient denied any chest pain, shortness of breath, [place] sea, vomiting, diaphoresis, PND, orthopnea, pedal edema, palpitation, or syncope. She is feeling bet ter after antibiotic treatment. Past Medical History: As stated above. Allergies: CLINDAMYCIN AND CODEINE. Review of Systems: Negative. Social History: Negative. Family History: Noncontributory. Medications: At home include theophylline inhaler and prednisone. She is on lisinopril/HCT, Coreg, iron, Lasix, Neurontin, and Protonix. Physical Examination: Vital Signs: Stable. She was afebrile. She was in a sinus rhythm. HEENT: Negative. Neck: Supple without any bruit, lymphadenopathy, JVD, or thyromegaly. Chest: Revealed wheezing on expiration, but no rales. Cardiac: Revealed a regular rhythm and rate. No murmurs, gallops, or rubs. Abdomen: Benign. Extremities: Revealed no clubbing, cyanosis, or edema. Diagnostic Data: Chest x-ray showed COPD. 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 Hemoglobin was 8.8. Troponin was 0.6. BNP was 2709. Recent echocardiogram was normal. Impression And Plan: 1.Chronic obstructive pulmonary disease exacerbation and hypoxia and fever and anemia causing her el evated troponin. This is demand ischemia. I do not think we are dealing with an acute coronary synd harshil. Recent echocardiogram in April 2020 is normal. 2.History of pulmonary hypertension that seems to have resolved as per last echo. 3.History of congestive heart failure with normal ejection fraction that has improved. 4.History of anemia, chronic. 5.Hypertension, well controlled. 6.Gastroesophageal reflux disease. 7.Attention deficit disorder. The patient is on appropriate therapy at home. She was on appropriat e therapy in the hospital. No need for any cardiac workup at this point. She can go home with her h ome medications. We will be happy to see her in the office in the next 2 to 3 weeks. RAND/SUNDEEP Voice ID: [id number] Report ID: [id number]
== END 2020-06-05 09:58 | disposition home health service (06) ==
LOC: ER 12:54 → UNDOADMOB 17:32 → ERHOLD 17:32 → 2ND 18:09
PROVIDERS: ADMIT Family Medicine; ATTEND Family Medicine
DX: I11.0 Hypertensive heart disease with heart failure (principal); I50.33 Acute on chronic diastolic (congestive) heart failure; J44.9 Chronic obstructive pulmonary disease, unspecified; G93.40 Encephalopathy, unspecified; R09.02 Hypoxemia; K21.9 Gastro-esophageal reflux disease without esophagitis; G89.29 Other chronic pain; D50.9 Iron deficiency anemia, unspecified; D51.9 Vitamin B12 deficiency anemia, unspecified; D63.8 Anemia in other chronic diseases classified elsewhere; K44.9 Diaphragmatic hernia without obstruction or gangrene; R50.9 Fever, unspecified; I27.20 Pulmonary hypertension, unspecified; I24.8 Other forms of acute ischemic heart disease; F98.8 Other specified behavioral and emotional disorders with onset usually occurring in childhood and adolescence; M19.90 Unspecified osteoarthritis, unspecified site; K57.90 Diverticulosis of intestine, part unspecified, without perforation or abscess without bleeding; Z99.81 Dependence on supplemental oxygen; Z79.52 Long term (current) use of systemic steroids; Z88.3 Allergy status to other anti-infective agents; Z88.6 Allergy status to analgesic agent; Z87.891 Personal history of nicotine dependence; Z20.828 Contact with and (suspected) exposure to other viral communicable diseases; Z82.49 Family history of ischemic heart disease and other diseases of the circulatory system; Z82.3 Family history of stroke
CPT/HCPCS: 93005; 87040 ×2; 85025 ×2; 80048 ×2; 36415; 83735 ×2; 82550 ×2; 85610; 80061; 80076; 83605; 81003; 84484 ×3; 82553 ×2; 84145; 83880; 71045 ×2; 94640 ×2; 96375; 96372; 96374; 99285; U0003; J1940 ×2; J1650 ×2; J7605 ×2; J0696; G0378 ×3; J7512

== ENCOUNTER 2020-06-11 12:15 | Emergency (ER) | payer OTHER ==
--- OUTSIDE RECORDS SUMMARY | 2020-06-11 12:16 | XMS REPORT | Continuity of Care Document ---
:1935 Author Organization [facility] t Address [address] [place] [address] Care Team Providers Name Role Phone Delicia LOPEZ Primary Care Physician Pob, Lab Main Attending Clinician Unavailable Problems This patient has no known problems. Allergies, Adverse Reactions, Alerts Allergy Allergy Status Severity Reaction(s) Onset Inactive Treating Comm ents Source Name Type Date Date Clinician Sisi Sears Active Other (See 0 [facility] ty to Comments) - she was Method i adverse 00:00: told not st reaction 00 to take s to by PCP drug Codeine Propensi Active Other (See [facility] ty to Comments) 03-21 allergy Method i adverse 00:00: st reaction 00 s to drug Social History Social Habit Start Date Stop Date Quantity Comments Source History of tobacco Cigarette Smoker [place] use [facility] Sex Assigned At [place] [facility] Cigarettes smoked 2018-04-18 2018-04-18 [place] current (pack per 00:00:00 00:00:[address] day) - Reported Cigarette 2018-04-18 2018-04-18 [place] pack-years 00:00:00 00:00:00 [facility] Alcohol intake 2018-04-18 2018-04-18 Current [place] 00:00:00 00:00:00 non-drinker of [facility] alcohol (finding) Smoking Status Start Date Stop Date Source Current every day smoker 2018-04-18 00:00:00 Lolly we[place] [facility] Medications Ordered Filled Start Stop Current Ordering [...] 40 MG EC 00 tablet tiZANidine Yes [place] (ZANAFLEX) 6-19 [facility] 4 MG tablet 00:00: st 00 PROAIR HFA Yes [place] 90 5-04 [facility] mcg/actuati 00:00: st on inhaler 00 metoprolol Yes [place] succinate 5-04 [facility] XL 00:00: st (TOPROL-XL) 00 50 mg 24 hr tablet Procedures This patient has no known procedures. Plan of Care Planned Activity Planned Date Details Comments Source Future Scheduled 2020-07-03 INFLUENZA VACCINE Nella huizar [facility] Test 00:00:00 [code = INFLUENZA VACCINE] Future Scheduled 2002 65+ PNEUMOCOCCAL [place] [facility] Test 00:00:00 VACCINE (1 of 2 - PCV13) [code = 65+ PNEUMOCOCCAL VACCINE (1 of 2 - PCV13)] Future Scheduled 1987 SHINGLES VACCINES (#1) [place] [facility] Test 00:00:00 [code = SHINGLES VACCINES (#1)] Encounters Start End Encounter Admission Attending Care Care Encounter Source Date/Time Date/Time Type Type Clinicians Facility Department ID 2019-12-20 2019-12-20 Bronze Chaser James Maki [facility] [id number] 14:10:01 14:34:05 Visit Lab Main [place] [id number] [place] [id number] Professio [phone] [facility] [address] Results This patient has no known results.
--- OUTSIDE RECORDS SUMMARY | 2020-06-11 12:16 | XMS REPORT | Clinical Summary ---
:1935 Author Organization [facility] Address [address] [place] [address] Care Team Providers Name Role Phone Jose Roberto Nesbitt MD Primary Care Provider [phone] Allergies Active Allergy Reactions Severity Noted Date [...] INFLUENZA VACCINE 07/03/2020 Results Not on fileafter 06/11/2019 Insurance Payer Benefit Plan / Subscriber ID Effective Phone Address T ype Group Dates COMMERCIAL MISC MISC COMMERCIAL xxxxxxxxx 2017-Pres Commercial ent MEDICARE MEDICARE PART A xxxxxxxxxx 2002-Pres [place], [place] Medicare AND B ent Advance Directives For more information, please contact: [phone] Type Date Recorded Patient Monogram Operator Explanati on Advance Directives, Living Will and Medical Power of Territory Sales Executive
[2020-06-11] MEDS ORDERED: NA CHLORIDE 0.9% 250 ML ONE ×2 (12:47→15:19)
--- NOTE | 2020-06-11 13:03 | RAD REPORT ---
EXAM DESCRIPTION: RAD - Chest Single View - 06/11/2020 12:48 pm CLINICAL HISTORY: COPD Chest pain. COMPARISON: Chest Single View dated 06/05/2020; Chest Single View dated 06/04/2020; Chest Single View da shy 05/14/2020; Chest Single View dated 04/28/2020 FINDINGS: Portable technique limits examination quality. The lungs are emphysematous but grossly clear. The heart is normal in size. No displaced fractures.Sm all hiatal hernia. IMPRESSION: Mild COPD.
[2020-06-11 13:08] LABS: Absolute Lymphocytes (CBC) 1.2 K/uL (0.7-4.9); Basophils % 0.5 % (0-1.3); Hematocrit 31.5 % (36.0-45.0); Lymphocytes % 12.5 % (15.3-44.8); MPV 7.8 fL (7.6-11.3); RBC Red Blood Cell Count 3.72 M/uL (3.86-4.86)
[2020-06-11 13:18] LABS: Magnesium 2.7 mg/dL (1.8-2.4)
[2020-06-11 14:23] LABS: Urine Blood NEGATIVE (NEG); Urine Glucose NEGATIVE (NEG); Urine Protein NEGATIVE (NEG); Urine Specific Gravity 1.015 (1.005-1.030)
[2020-06-11 14:45] LABS: Urine Bacteria 20-50 /HPF (<20); Urine RBC <5 /HPF (NONE SEEN)
[2020-06-11 14:46] LABS: Urine Culture Reflex Order NOT NEEDED
--- NOTE | 2020-06-11 15:03 | ER ---
Nurse's Notes [facility] Name: Allison Vickers Age: 85 yrs Sex: Female : 1935 Arrival Date: 06/11/2020 Time: 12:17 Bed 17 Private MD: Diagnosis: Dehydration;Urinary tract infection, site not specified Presentation: 06/11 12:20 Chief complaint: EMS states: pt from home, the family said about 3 days ago she started tw2 with these tremors and she came here for blood work, kidney function was a little off but other than that was sent home, family states she started doing it again and they called Dr. Fisher and office said to come here, vs stable , hx of COPD 93% on 3L NC at home with lots of extension tubing. Coronavirus screen: At this time, the client does not indicate any symptoms associated with coronavirus-19. Ebola Screen: Patient denies travel to an Ebola-affected area in the 21 days before illness onset. Initial Sepsis Screen: Does the patient meet any 2 criteria? No. Patient's initial sepsis screen is negative. Does the patient have a suspected source of infection? No. Patient's initial sepsis screen is negative. Risk Assessment: Do you want to hurt yourself or someone else? Patient reports no desire to harm self or others. Onset of symptoms was June 11, 2020. 12:20 Method Of Arrival: EMS: [facility] tw2 12:20 Acuity: JESUS 3 tw2 Triage Assessment: 12:23 General: Appears in no apparent distress. slender, Behavior is calm, cooperative, tw2 appropriate for age. Pain: Complains of pain in back. Musculoskeletal: Range of motion: intact in all extremities. Historical: - Allergies: 12:25 Clindamycin; tw2 12:25 Codeine; tw2 - Home Meds: 12:25 carvedilol 12.5 mg Oral tab 1 tab 2 times per day [Active]; furosemide 20 mg Oral tab 1 tw2 tab once daily [Active]; gabapentin 300 mg Oral cap 1 cap 3 times per day [Active]; hydrocodone-acetaminophen 10-325 mg Oral tab 1 tab every 6 hours [Active]; lisinopril 40 mg Oral tab 1 tab once daily [Active]; loratadine 10 mg Oral TbDL 1 tab once daily [Active]; pantoprazole 40 mg Oral TbEC 1 tab once daily [Active]; ProAir HFA 90 mcg/actuation inhalation HFAA 2 puffs every 6 hours [Active]; Vitamin D Oral [Active]; - PMHx: 12:25 IRON DEFICIENCY ANEMIA; diverticulosis; Hypertension; hiatal hernia; COPD; chronic tw2 bronchitis; carpal tunnel syndrome; Arthritis; ADD/ADHD; Chronic pain; CHF; - Immunization history:: Adult Immunizations. - Social history:: Smoking status: . - Family history:: not pertinent. - Hospitalizations: : No recent hospitalization is reported. Screenin:25 Abuse screen: Denies threats or abuse. Nutritional screening: No deficits noted. tw2 Tuberculosis screening: No symptoms or risk factors identified. Fall Risk Secondary diagnosis (15 points) impaired mobility. Assessment: 12:30 General: Appears in no apparent distress. Behavior is calm, cooperative, appropriate jr10 for age. Pain: Complains of pain in back Pain does not radiate. Pain currently is 6 out of 10 on a pain scale. Quality of pain is described as aching, Pain began chronic Is intermittent, episodic, Aggravated by increased activity, repositioning. Neuro: No deficits noted. Level of Consciousness is awake, alert, obeys commands, Oriented to person, place, time, situation, Appropriate for age. Cardiovascular: No deficits noted. Denies chest pain. Respiratory: No deficits noted. Denies shortness of breath hx of COPD, chronic O2 user at 3L via NC. GI: No deficits noted. No signs and/or symptoms were reported involving the gastrointestinal system. : No deficits noted. No signs and/or symptoms were reported regarding the genitourinary system. EENT: No deficits noted. No signs and/or symptoms were reported regarding the EENT system. Derm: No deficits noted. No signs and/or symptoms reported regarding the dermatologic system. Musculoskeletal: Circulation, motion, and sensation intact. Range of motion: intact in all extremities, Swelling absent reports fall this morning; reports intermittent upper body tremors, no hx of parkinson's dx. 14:11 Reassessment: pt family contact information: Ganesh (): [phone]. jr10 Vital Signs: 12:20 BP 149 / 73; Pulse 83; Resp 18; Temp 98.2(O); Pulse Ox 100% on 2 lpm NC; Weight 49.9 kg tw2 (R); Height 5 ft. 4 in. (162.56 cm); Pain 4/10; 13:53 BP 120 / 54; Pulse 88; Resp 20; Pulse Ox 100% on 3 lpm NC; jr10 15:16 BP 141 / 63; Pulse 86; Resp 18; Pulse Ox 98% on 3 lpm NC; jr10 12:20 Body Mass Index 18.88 (49.90 kg, 162.56 cm) tw2 ED Course: 12:17 Patient arrived in ED. jr10 12:20 Placed in gown. Bed in low position. Side rails up X 1. cytogenetics laboratory manager on. Pulse ox tw2 on. NIBP on. 12:22 Triage completed. tw2 12:22 Arm band placed on. tw2 12:24 Chin Allan MD is Attending Physician. rn 12:30 Inserted saline lock: 20 gauge in left forearm, using aseptic technique. IV is patent, jr10 is intact, with fluids infusing freely, with good blood return, Flushed. 12:34 Angie Keene, SAMANTHA is Primary Nurse. jr10 12:48 XRAY Chest (1 view) In Process Unspecified. EDMS 12:58 No provider procedures requiring assistance completed. jr10 15:56 IV discontinued, intact, bleeding controlled, No redness/swelling at site. Pressure jr10 dressing applied. Administered Medications: 13:00 Drug: NS 0.9% 250 ml Route: IV; Rate: bolus; Site: right forearm; jr10 13:35 Follow up: Response: No adverse reaction; IV Status: Completed infusion jr10 15:16 Drug: NS 0.9% 250 ml Route: IV; Rate: bolus; Site: left forearm; jr10 15:58 Follow up: Response: No adverse reaction; IV Status: Completed infusion jr10 15:16 Drug: Macrobid 100 mg Route: PO; jr10 15:58 Follow up: Response: No adverse reaction jr10 Outcome: 15:02 Discharge ordered by . rn 15:57 Discharged to home via wheelchair. jr10 15:57 Condition: good 15:57 Discharge instructions given to patient, family, Instructed on discharge instructions, follow up and referral plans. Demonstrated understanding of instructions, follow-up care, medications, Prescriptions given X 1. 15:57 Patient left the ED. jr10 Signatures: Dispatcher [employer] EDChin Carvajal MD MD rn Wise, Tara, RN RN tw2 Angie Keene RN RN jr10
--- NOTE | 2020-06-11 15:03 | EDPHYS ---
Physician Documentation [facility] Name: Allison Vickers Age: 85 yrs Sex: Female : 1935 Arrival Date: 06/11/2020 Time: 12:17 Bed 17 Private MD: ED Physician Chin Allan HPI: 06/11 13:55 This 85 yrs old Female presents to ER via EMS with complaints of Tremor. rn 13:55 Patient reports generalized weakness and tremor that began a few days ago, reports rn "twitching" in hands. No focal neuro complaint. NO head injury. No chest pain or abd pain. No vomiting/diarrhea.. Onset: The symptoms/episode began/occurred 3 day(s) ago. Severity of symptoms: At their worst the symptoms were mild in the emergency department the symptoms are unchanged. The patient has not experienced similar symptoms in the past. The patient has not recently seen a physician. Historical: - Allergies: 12:25 Clindamycin; tw2 12:25 Codeine; tw2 - Home Meds: 12:25 carvedilol 12.5 mg Oral tab 1 tab 2 times per day [Active]; furosemide 20 mg Oral tab 1 tw2 tab once daily [Active]; gabapentin 300 mg Oral cap 1 cap 3 times per day [Active]; hydrocodone-acetaminophen 10-325 mg Oral tab 1 tab every 6 hours [Active]; lisinopril 40 mg Oral tab 1 tab once daily [Active]; loratadine 10 mg Oral TbDL 1 tab once daily [Active]; pantoprazole 40 mg Oral TbEC 1 tab once daily [Active]; ProAir HFA 90 mcg/actuation inhalation HFAA 2 puffs every 6 hours [Active]; Vitamin D Oral [Active]; - PMHx: 12:25 IRON DEFICIENCY ANEMIA; diverticulosis; Hypertension; hiatal hernia; COPD; chronic tw2 bronchitis; carpal tunnel syndrome; Arthritis; ADD/ADHD; Chronic pain; CHF; - Immunization history:: Adult Immunizations. - Social history:: Smoking status: . - Family history:: not pertinent. - Hospitalizations: : No recent hospitalization is reported. ROS: 13:55 Constitutional: Negative for fever, chills, and weight loss, Eyes: Negative for injury, rn pain, redness, and discharge, Cardiovascular: Negative for chest pain, palpitations, and edema, Respiratory: Negative for shortness of breath, cough, wheezing, and pleuritic chest pain, Abdomen/GI: Negative for abdominal pain, nausea, vomiting, diarrhea, and constipation, MS/Extremity: Negative for injury and deformity, Skin: Negative for injury, rash, and discoloration, Neuro: Negative for headache,numbness, tingling, and seizure. Exam: 13:55 Constitutional: This is a well developed, well nourished patient who is awake, alert, rn and in no acute distress. Head/Face: Normocephalic, atraumatic. Eyes: Periorbital areas with no swelling, redness, or edema. Cardiovascular: Regular rate and rhythm. No pulse deficits. Respiratory: Speaking full sentences, unlabored Abdomen/GI: soft, non-tender MS/ Extremity: Pulses equal, no cyanosis. Neurovascular intact. Full, normal range of motion. Equal circumference. Intermittent twitching of hands/fingers, no gross tremor or lower extremity symptoms. Neuro: Awake and alert, GCS 15, oriented to person, place, time, and situation. Cranial nerves II-XII grossly intact. Motor strength 4/5 in all extremities. Sensory grossly intact. Cerebellar exam normal. Vital Signs: 12:20 BP 149 / 73; Pulse 83; Resp 18; Temp 98.2(O); Pulse Ox 100% on 2 lpm NC; Weight 49.9 kg tw2 (R); Height 5 ft. 4 in. (162.56 cm); Pain 4/10; 13:53 BP 120 / 54; Pulse 88; Resp 20; Pulse Ox 100% on 3 lpm NC; jr10 15:16 BP 141 / 63; Pulse 86; Resp 18; Pulse Ox 98% on 3 lpm NC; jr10 12:20 Body Mass Index 18.88 (49.90 kg, 162.56 cm) tw2 MDM: 12:24 Patient medically screened. rn 15:01 Differential Diagnosis dehydration, UTI. Data reviewed: vital signs, nurses notes, laboratory equipment cleaner test result(s), radiologic studies, plain films, and as a result, I will discharge patient. Counseling: I had a detailed discussion with the patient and/or guardian regarding: the historical points, exam findings, and any diagnostic results supporting the discharge/admit diagnosis, lab results, radiology results, the need for outpatient follow up, to return to the emergency department if symptoms worsen or persist or if there are any questions or concerns that arise at home. Response to treatment: the patient's symptoms have mildly improved after treatment, and as a result, I will discharge patient. Special discussion: I discussed with the patient/guardian in detail that at this point there is no indication for admission to the hospital. It is understood, however, that if the symptoms persist or worsen the patient needs to return immediately for re-evaluation. ED course: Pt with UTI and dehydration, spoke with daughter, updated with results, will dc home with abx and pcp f/u for culture f/u. . 06/11 12:33 Order name: CBC with Diff; Complete Time: 13:26 rn 06/11 12:33 Order name: Basic Metabolic Panel; Complete Time: 14:51 rn 06/11 12:33 Order name: Urine Culture rn 06/11 12:33 Order name: Urine Microscopic Only; Complete Time: 14:51 rn 06/11 12:33 Order name: Magnesium; Complete Time: 14:51 rn 06/11 12:33 Order name: BNP; Complete Time: 14:51 rn 06/11 12:33 Order name: IV Start; Complete Time: 14:17 rn 06/11 12:33 Order name: Urine Dipstick-Ancillary (obtain specimen); Complete Time: 14:17 rn 06/11 12:33 Order name: XRAY Chest (1 view); Complete Time: 13:26 rn 06/11 12:33 Order name: Procalcitonin; Complete Time: 14:51 rn 06/11 14:16 Order name: Urine Dipstick--Ancillary (enter results); Complete Time: 14:51 bd Administered Medications: 13:00 Drug: NS 0.9% 250 ml Route: IV; Rate: bolus; Site: right forearm; jr10 13:35 Follow up: Response: No adverse reaction; IV Status: Completed infusion jr10 15:16 Drug: NS 0.9% 250 ml Route: IV; Rate: bolus; Site: left forearm; jr10 15:58 Follow up: Response: No adverse reaction; IV Status: Completed infusion jr10 15:16 Drug: Macrobid 100 mg Route: PO; jr10 15:58 Follow up: Response: No adverse reaction jr10 Disposition: 06/11/20 15:02 Discharged to Home. Impression: Dehydration, Urinary tract infection, site not specified. - Condition is Stable. - Discharge Instructions: Dehydration, Adult, Urinary Tract Infection, Adult. - Prescriptions for Macrobid 100 mg Oral Capsule - take 1 capsule by ORAL route every 12 hours for 7 days; 14 capsule. - Medication Reconciliation Form, Thank You Letter, Antibiotic Education, Prescription Opioid Use form. - Follow up: Private Physician; When: 2 - 3 days; Reason: Recheck today's complaints, Re-evaluation by your physician. - Problem is new. - Symptoms have improved. Signatures: Dispatcher [employer] EDChin Carvajal MD MD rn Wise, Andra RN RN tw2 Angie Keene RN RN jr10 Corrections: (The following items were deleted from the chart) 15:57 15:02 06/11/2020 15:02 Discharged to Home. Impression: Dehydration; Urinary tract jr10 infection, site not specified. Condition is Stable. Forms are Medication Reconciliation Form, Thank You Letter, Antibiotic Education, Prescription Opioid Use. Follow up: Private Physician; When: 2 - 3 days; Reason: Recheck today's complaints, Re-evaluation by your physician. Problem is new. Symptoms have improved. rn
[2020-06-11] MEDS ORDERED: NITROFURAN MACRO 100 MG CAP PO ONE (15:19)
[2020-06-11 16:02] VITALS: TEMP 98.2
[2020-06-11 16:04] VITALS: BP 141/63; O2SAT 98
== END 2020-06-11 15:57 | disposition home or self-care (01) ==
LOC: ER 12:15
DX: E86.0 Dehydration (principal); N39.0 Urinary tract infection, site not specified; I10 Essential (primary) hypertension; I50.9 Heart failure, unspecified; G89.29 Other chronic pain; Z88.1 Allergy status to other antibiotic agents; Z88.5 Allergy status to narcotic agent
CPT/HCPCS: 87088; 85025; 87086; 80048; 36415; 83735; 84145; 83880; 71045; 99284; J7050 ×2; 81003; 81015

== ENCOUNTER 2020-06-25 15:22 | Inpatient (IN) | payer OTHER ==
--- OUTSIDE RECORDS SUMMARY | 2020-06-25 15:23 | XMS REPORT | Clinical Summary ---
:1935 Author Organization [facility] Address [address] [place] [address] Care Team Providers Name Role Phone Jose Roberto Nesbitt MD Primary Care Provider [phone] Allergies Active Allergy Reactions Severity Noted Date [...] Assigned at Date Recorded Not on file Last Filed Vital Signs Not on file Plan of Treatment Health Maintenance Due Date Last Done Comments SHINGLES VACCINES (#1) 1987 65+ PNEUMOCOCCAL VACCINE (1 of 1 - PPSV23) 2002 INFLUENZA VACCINE 06/03/2020 Results Not on fileafter 06/25/2019 Insurance Payer Benefit Plan / Subscriber ID Effective Phone Address T ype Group Dates COMMERCIAL MISC MISC COMMERCIAL [id number] 2017-Pres Commercial ent MEDICARE MEDICARE PART A [id number] 2002-Pres [place], [place] Medicare AND B ent Advance Directives For more information, please contact: [phone] Type Date Recorded Patient Account Support Manager Explanati on Advance Directives, Living Will and Medical Power of Desk Operator
--- OUTSIDE RECORDS SUMMARY | 2020-06-25 15:23 | XMS REPORT | Continuity of Care Document ---
:1935 Author Organization [facility] t Address [address] [place] [address] Care Team Providers Name Role Phone Delicia LOPEZ Primary Care Physician Pob, Lab Main Attending Clinician Unavailable Problems This patient has no known problems. Allergies, Adverse Reactions, Alerts Allergy Allergy Status Severity Reaction(s) Onset Inactive Treating Comm ents Source Name Type Date Date Clinician Sisi Sears Active Other (See 0 [facility] ty to Comments) - she was Method i adverse 00:00: told not st reaction 00 to take s to by PCP drug Codeine Propensi Active Other (See [facility] ty to Comments) - allergy Method i adverse 00:00: st reaction 00 s to drug Social History Social Habit Start Date Stop Date Quantity Comments Source History of tobacco Cigarette Smoker [facility] use [facility] Sex Assigned At [facility] Cigarettes smoked 2018-04-18 2018-04-18 [facility] current (pack per 00:00:00 00:00:[address] day) - Reported Cigarette 2018-04-18 2018-04-18 [facility] pack-years 00:00:00 00:00:00 [facility] Alcohol intake 2018-04-18 2018-04-18 Current [facility] 00:00:00 00:00:00 non-drinker of [facility] alcohol (finding) Smoking Status Start Date Stop Date Source Current every day smoker 2018-04-18 00:00:00 [place]olly [facility] [facility] Medications Ordered Filled Start Stop Current Ordering [...] 40 MG EC 00 tablet tiZANidine Yes [facility] (ZANAFLEX) 6-19 [facility] 4 MG tablet 00:00: st 00 PROAIR HFA Yes [facility] 90 5-04 [facility] mcg/actuati 00:00: st on inhaler 00 metoprolol Yes [facility] succinate 5-04 [facility] XL 00:00: st (TOPROL-XL) 00 50 mg 24 hr tablet Procedures This patient has no known procedures. Plan of Care Planned Activity Planned Date Details Comments Source Future Scheduled 2020-06-03 INFLUENZA VACCINE Nella huizar [facility] Test 00:00:00 [code = INFLUENZA VACCINE] Future Scheduled 2002 65+ PNEUMOCOCCAL [place] [facility] Test 00:00:00 VACCINE (1 of 1 - PPSV23) [code = 65+ PNEUMOCOCCAL VACCINE (1 of 1 - PPSV23)] Future Scheduled 1987 SHINGLES VACCINES (#1) [place] [facility] Test 00:00:00 [code = SHINGLES VACCINES (#1)] Encounters Start End Encounter Admission Attending Care Care Encounter Source Date/Time Date/Time Type Type Clinicians Facility Department ID 2019-12-20 2019-12-20 Area Attendant James Maki [facility] [id number] 14:10:01 14:34:05 Visit Lab Main [place] [id number] [place] [id number] Professio [phone] [facility] [address] Results This patient has no known results.
--- NOTE | 2020-06-25 16:51 | RAD REPORT ---
EXAM DESCRIPTION: RAD - Chest Single View - 06/25/2020 4:42 pm CLINICAL HISTORY: AMS Chest pain. COMPARISON: Chest Single View dated 06/11/2020; Chest Single View dated 06/05/2020; Chest Single View da shy 06/04/2020; Chest Single View dated 05/14/2020 FINDINGS: Portable technique limits examination quality. Bilateral interstitial lung opacities are seen suggesting interstitial pneumonitis or bronchitis. The heart is upper limit normal in size. No displaced fractures.
[2020-06-25] MEDS ORDERED: CEFTRIAXONE 1000 MG/VIAL ONE (17:24)
[2020-06-25] MEDS ORDERED: NA CHLORIDE 0.9% 50 ML IV ONE (17:25)
[2020-06-25 17:39] LABS: Protime INR 0.91
[2020-06-25 17:44] LABS: Absolute Lymphocytes (CBC) 1.4 K/uL (0.7-4.9); Basophils % 0.7 % (0-1.3); Hematocrit 25.3 % (36.0-45.0); Lymphocytes % 10.2 % (15.3-44.8); MPV 9.3 fL (7.6-11.3); RBC Red Blood Cell Count 2.93 M/uL (3.86-4.86)
--- NOTE | 2020-06-25 18:59 | EDPHYS ---
Physician Documentation [facility] Name: Allison Vickers Age: 85 yrs Sex: Female : 1935 Arrival Date: 06/25/2020 Time: 15:26 Bed 16 Private MD: ED Physician Terrance Howe HPI: 06/25 16:56 This 85 yrs old Female presents to ER via EMS with complaints of Altered kdr Mental Status. 16:56 The patient presents with confusion, decreased mental status, decreased responsiveness. kdr Onset: The symptoms/episode began/occurred gradually, last night. Possible causes: CVA or TIA, sepsis, unknown. Associated signs and symptoms: Pertinent positives: confusion, Pertinent negatives: abdominal pain, agitation, ataxia, blurred vision, chest pain, combativeness, diaphoresis, diarrhea, dizziness, headache, lightheadedness. Current symptoms: In the emergency department the patient's symptoms are unchanged from the initial presentation. Patient's baseline: Neuro: alert but confused, Motor: no deficits. It is unknown whether or not the patient has had similar symptoms in the past. It is unknown whether or not the patient has recently seen a physician. Historical: - Allergies: 22:53 Clindamycin; jd3 22:53 Codeine; jd3 - PMHx: 22:53 COPD; carpal tunnel syndrome; Arthritis; CHF; Hypertension; diverticulosis; IRON jd3 DEFICIENCY ANEMIA; hiatal hernia; Chronic pain; chronic bronchitis; ADD/ADHD; - Immunization history:: Adult Immunizations up to date. - Social history:: Smoking status: unknown. ROS: 16:56 Constitutional: The patient is unable to give a history - obtained from Eyes: kdr Negative for injury, pain, redness, and discharge, Neck: Negative for injury, pain, and swelling, Cardiovascular: Negative for chest pain, palpitations, and edema, Respiratory: Negative for shortness of breath, cough, wheezing, and pleuritic chest pain, Abdomen/GI: Negative for abdominal pain, nausea, vomiting, diarrhea, and constipation, Back: Negative for injury and pain. 16:56 Neuro: Positive for altered mental status, weakness. Exam: 16:56 Constitutional: This is a well developed, well nourished patient who is soomnolent but kdr in no acute distress. Head/Face: Normocephalic, atraumatic. Neck: Trachea midline, no thyromegaly or masses palpated, and no cervical lymphadenopathy. Supple, full range of motion without nuchal rigidity, or vertebral point tenderness. No Meningismus. Chest/axilla: Normal chest wall appearance and motion. Nontender with no deformity. No lesions are appreciated. Cardiovascular: Regular rate and rhythm with a normal S1 and S2. No gallops, murmurs, or rubs. Normal PMI, no JVD. No pulse deficits. Respiratory: Lungs have equal breath sounds bilaterally, clear to auscultation and percussion. No rales, rhonchi or wheezes noted. No increased work of breathing, no retractions or nasal flaring. Abdomen/GI: Soft, non-tender, with normal bowel sounds. No distension or tympany. No guarding or rebound. No evidence of tenderness throughout. MS/ Extremity: Pulses equal, no cyanosis. Neurovascular intact. Full, normal range of motion. 16:56 Neuro: Orientation: Not oriented to person, place, time, situation, Mentation: inappropriate for stated age, slow to respond, confused. 19:19 ECG was reviewed by the Attending Physician. raven Vital Signs: 15:33 BP 101 / 52; Pulse 80; Resp 17; Temp 99.3; Pulse Ox 92% on 4 lpm NC; ll2 16:06 BP 101 / 52; Pulse 94; Resp 17; Temp 99.3; Pulse Ox 92% on 4 lpm NC; ll2 16:33 BP 92 / 53; Pulse 70; Resp 18; Pulse Ox 100% on 4 lpm NC; ll2 17:30 BP 157 / 68; Pulse 91; Resp 21; Pulse Ox 98% ; jd3 19:00 Weight 40.82 kg (R); jd3 20:05 BP 66 / 33; Pulse 55; Resp 13; Pulse Ox 100% on 4 lpm NC; ll2 21:53 BP 79 / 46; Pulse 53; Resp 23; Pulse Ox 100% on 4 lpm NC; ll2 22:43 BP 112 / 55; Pulse 54; Resp 15 S; Pulse Ox 100% on 3.5 lpm NC; jd3 23:23 BP 107 / 50; Pulse 68; Resp 15; Pulse Ox 83% on 4 lpm NC; ll2 23:23 O2 sat noted and assessed, pt didnt have a good wave form, O2 sat returned to 98% 4L N/Cll2 Procedures: 22:36 Central Line: the site was prepped with Betadine, in sterile fashion, a triple lumen raven catheter was inserted, in the right femoral vein, in 2 attempts. placement was verified, by blood return, the site was dressed with using sterile technique, the patient tolerated the procedure, well. MDM: 16:56 Data reviewed: vital signs, nurses notes, lab test result(s), radiologic studies. kdr Counseling: I had a detailed discussion with the patient and/or guardian regarding: the historical points, exam findings, and any diagnostic results supporting the discharge/admit diagnosis, lab results, radiology results. 18:08 Patient medically screened. [facility] 19:01 Differential Diagnosis: CVA, electrolyte abnormality, pneumonia, sepsis, TIA, UTI, raven volume depletion. Data interpreted: food court team member: rate is 70 beats/min, rhythm is regular, Pulse oximetry: on room air is 100 %. Test interpretation: by ED physician or midlevel provider: ECG, plain radiologic studies. Other consultation: gi at [facility] , not to accept, outpatient work up. 06/25 15:53 Order name: Amylase, Serum [facility] 06/25 15:53 Order name: Basic Metabolic Panel [facility] 06/25 15:53 Order name: Blood Culture Adult (2) kdr 06/25 15:53 Order name: CBC with Diff; Complete Time: 17:57 kdr 06/25 15:53 Order name: Ckmb; Complete Time: 19:28 kdr 06/25 15:53 Order name: CPK; Complete Time: 19:28 [facility] 06/25 15:53 Order name: Lactate; Complete Time: 17:57 [facility] 06/25 15:53 Order name: LFT's; Complete Time: 19:28 kdr 06/25 15:53 Order name: Lipase; Complete Time: 19:28 kdr 06/25 15:53 Order name: Procalcitonin; Complete Time: 18:41 kdr 06/25 15:53 Order name: Protime (+inr); Complete Time: 17:57 kdr 06/25 15:53 Order name: Ptt, Activated; Complete Time: 17:57 kdr 06/25 15:53 Order name: Troponin (emerg Dept Use Only); Complete Time: 19:28 kdr 06/25 15:53 Order name: Urine Microscopic Only; Complete Time: 19:56 [facility] 06/25 15:53 Order name: Chest Single View XRAY; Complete Time: 17:57 [facility] 06/25 15:53 Order name: Amylase; Complete Time: 19:28 [facility] 06/25 15:53 Order name: Basic Metabolic Panel; Complete Time: 19:28 [facility] 06/25 16:15 Order name: Glucose, Ancillary Testing; Complete Time: 17:57 [facility] 06/25 18:41 Order name: Type And Screen [facility] 06/25 18:44 Order name: COVID-19 [facility] 06/25 18:45 Order name: Urine Dipstick--Ancillary (enter results); Complete Time: 19:28 em1 06/25 18:55 Order name: Packed RBC Leukored [facility] 06/25 18:59 Order name: CT Head Brain wo Cont [facility] 06/25 19:01 Order name: ABG [facility] 06/25 19:30 Order name: Urine Culture [facility] 06/25 19:32 Order name: CT Abd/Pelvis - Without Contrast: no iv no oral [facility] 06/25 20:47 Order name: CT [facility] 06/25 20:53 Order name: CT [facility] 06/25 23:03 Order name: Troponin I [facility] 06/25 23:26 Order name: ABO/RH no charge [facility] 06/25 15:53 Order name: Cardiac monitoring; Complete Time: 15:54 [facility] 06/25 15:53 Order name: EKG - Nurse/Tech; Complete Time: 15:54 [facility] 06/25 15:53 Order name: IV Saline Lock - Large Bore; Complete Time: 17:19 [facility] 06/25 15:53 Order name: Labs collected and sent; Complete Time: 17:19 [facility] 06/25 15:53 Order name: O2 Per Protocol; Complete Time: 15:54 [facility] 06/25 15:53 Order name: O2 Sat Monitoring; Complete Time: 15:54 [facility] 06/25 15:53 Order name: Urine Dipstick-Ancillary (obtain specimen); Complete Time: 18:40 [facility] 06/25 18:44 Order name: Epi; Complete Time: 18:44 [facility] EC:19 Rate is 72 beats/min. Rhythm is regular. QRS [place] is Normal. MO interval is normal. QRS raven interval is normal. QT interval is normal. No Q waves. T waves are Normal. No ST changes noted. Clinical impression: Normal ECG and No evidence of ischemia. Interpreted by me. Reviewed by me. Administered Medications: 17:24 Drug: Rocephin - (cefTRIAXone) 1 grams Route: IVPB; Infused Over: 30 mins; Site: right jd3 hand; 18:28 Follow up: Response: No adverse reaction; IV Status: Completed infusion ll2 19:18 Drug: ProTONIX 80 mg Route: IVP; Site: right hand; ll2 20:15 Follow up: Response: No adverse reaction jd3 19:18 Drug: Xopenex 2.5 mg Route: Inhalation; ll2 19:18 Drug: AtroVENT Aerosol 0.5 mg Route: Inhalation; ll2 20:58 Follow up: Response: No adverse reaction ll2 20:58 Drug: SOLU-Medrol 2 mg/kg Route: IVP; Site: right hand; ll2 21:50 Follow up: Response: No adverse reaction jd3 22:38 Drug: Zosyn 3.375 grams Route: IVPB; Infused Over: 60 mins; Site: right femoral; ll2 22:56 Follow up: Response: No adverse reaction; IV Status: Infusion continued upon admission jd3 22:38 Drug: NS 0.9% 1000 ml Route: IV; Rate: 1 bolus; Site: right femoral; ll2 22:56 Follow up: Response: No adverse reaction; IV Status: Infusion continued upon admission jd3 22:47 Not Given (Physician Discretion): Kayexalate 30 grams PO once jd3 Point of Care Testing: Blood Glucose: 16:06 Blood Glucose: 83 mg/dL; ll2 Ranges: Critical Glucose Levels:Adult <50 mg/dl or >400 mg/dl <40 mg/dl or >180 mg/dl Disposition: 06/25/20 18:58 Hospitalization ordered by Daniela Rivas for Inpatient Admission. Preliminary diagnosis are Altered mental status, unspecified, Anemia, unspecified, Pneumonia due to other specified bacteria, Chronic obstructive pulmonary disease, unspecified. - Bed requested for Telemetry/MedSurg (Inpatient). - Status is Inpatient Admission. ll2 - Condition is Fair. - Problem is new. - Symptoms have improved. Signatures: Dispatcher [employer] EDTerrance Bennett MD MD cha Rittger, Kevin, MD MD kdr Lasagna, Tonya, RN RN tl1 Shaheen Mayes, RN RN jd3 Sara Gotti RN RN ll2 Corrections: (The following items were deleted from the chart) 19:05 18:58 Hospitalization Ordered by Daniela Rivas MD for Inpatient Admission. Preliminary raven diagnosis is Altered mental status, unspecified; Anemia, unspecified; Pneumonia due to other specified bacteria. Bed requested for Telemetry/MedSurg (Inpatient). Status is Inpatient Admission. Condition is Fair. Problem is new. Symptoms have improved. [facility] 21:23 19:05 06/25/2020 18:58 Hospitalization Ordered by Daniela Rivas MD for Inpatient tl1 Admission. Preliminary diagnosis is Altered mental status, unspecified; Anemia, unspecified; Pneumonia due to other specified bacteria; Chronic obstructive pulmonary disease, unspecified. Bed requested for Telemetry/MedSurg (Inpatient). Status is Inpatient Admission. Condition is Fair. Problem is new. Symptoms have improved. [facility] 23:26 21:23 06/25/2020 18:58 Hospitalization Ordered by Daniela Rivas MD for Inpatient ll2 Admission. Preliminary diagnosis is Altered mental status, unspecified; Anemia, unspecified; Pneumonia due to other specified bacteria; Chronic obstructive pulmonary disease, unspecified. Bed requested for Telemetry/MedSurg (Inpatient). Status is Inpatient Admission. Condition is Fair. Problem is new. Symptoms have improved. tl1
--- NOTE | 2020-06-25 18:59 | ER ---
Nurse's Notes [facility] Name: Allison Vickers Age: 85 yrs Sex: Female : 1935 Arrival Date: 06/25/2020 Time: 15:26 Bed 16 Private MD: Diagnosis: Altered mental status, unspecified;Anemia, unspecified;Pneumonia due to other specified bacteria;Chronic obstructive pulmonary disease, unspecified Presentation: 06/25 15:33 Chief complaint: EMS states: pt was D/C last week with UTI and pnumonia. Over the last ll2 4 days she has not been eating, drinking, or having much urine output. She is AAOX1, person only. Coronavirus screen: Client denies travel out of the [place] in the last 14 days. difficulty breathing, fever, shortness of breath, recently tested with negative results. Ebola Screen: Patient negative for fever greater than or equal to 101.5 degrees Fahrenheit, and additional compatible Ebola Virus Disease symptoms. Initial Sepsis Screen: Does the patient meet any 2 criteria? No. Patient's initial sepsis screen is negative. Does the patient have a suspected source of infection? No. Patient's initial sepsis screen is negative. Risk Assessment: Do you want to hurt yourself or someone else? Patient reports no desire to harm self or others. Note satting at 60% without O2. Onset of symptoms was June 21, 2020 at 11:00. 15:33 Method Of Arrival: EMS: [facility] ll2 15:33 Acuity: JESUS 2 ll2 Triage Assessment: 15:38 General: Appears uncomfortable, Behavior is calm, quiet. Pain: Denies pain. EENT: No ll2 signs and/or symptoms were reported regarding the EENT system. Neuro: Level of Consciousness is awake, confused, Oriented to person. Cardiovascular: Capillary refill < 3 seconds Patient's skin is warm and dry. Respiratory: Airway is patent Respiratory effort is even, labored, Respiratory pattern is symmetrical. GI: No signs and/or symptoms were reported involving the gastrointestinal system. : Parent/caregiver report the patient having inability to void since past 4 days. Derm: Skin is intact, is fragile, is thin, Skin is dry, Skin is pink, warm \T\ dry. Skin temperature is warm. Musculoskeletal: Circulation, motion, and sensation intact. Range of motion: limited in all extremities. Historical: - Allergies: 22:53 Clindamycin; jd3 22:53 Codeine; jd3 - PMHx: 22:53 COPD; carpal tunnel syndrome; Arthritis; CHF; Hypertension; diverticulosis; IRON jd3 DEFICIENCY ANEMIA; hiatal hernia; Chronic pain; chronic bronchitis; ADD/ADHD; - Immunization history:: Adult Immunizations up to date. - Social history:: Smoking status: unknown. Screenin:33 Abuse screen: Denies threats or abuse. Nutritional screening: No deficits noted. ll2 Tuberculosis screening: No symptoms or risk factors identified. Fall Risk IV access (20 points). Ambulatory Aid- Crutches/Cane/Walker (15 pts). Gait- Impaired (20 pts.). Mental Status- Overestimates/Forgets Limitations (15 pts.). Total Francisco Fall Scale indicates High Risk Score (45 or more points). Fall prevention measures have been instituted. Side Rails Up X 2 Placed Close to Nursing Station Family Present and informed to notify staff if the need to leave the bedside. Assessment: 16:07 Reassessment: see triage assessment. ll2 16:30 Reassessment: lab called with lab value of hmg 7.5. ERD notified. jd3 17:05 Reassessment: No changes from previously documented assessment. Patient and/or family jd3 updated on plan of care and expected duration. Pain level reassessed. Patient is alert, oriented x 3, equal unlabored respirations, skin warm/dry/pink. 18:00 Reassessment: No changes from previously documented assessment. Patient and/or family ll2 updated on plan of care and expected duration. Pain level reassessed. Patient is alert, oriented x 3, equal unlabored respirations, skin warm/dry/pink. 18:30 Reassessment: No changes from previously documented assessment. Patient and/or family ll2 updated on plan of care and expected duration. Pain level reassessed. resting in bed. decision made to hospitalize. 19:40 Reassessment: No changes from previously documented assessment. Patient and/or family ll2 updated on plan of care and expected duration. Pain level reassessed. Patient is alert, oriented x 3, equal unlabored respirations, skin warm/dry/pink. 22:45 Reassessment: Patient and/or family updated on plan of care and expected duration. Pain jd3 level reassessed. report attempt made, reported that nurse is busy and will call ER nurse back. Vital Signs: 15:33 BP 101 / 52; Pulse 80; Resp 17; Temp 99.3; Pulse Ox 92% on 4 lpm NC; ll2 16:06 BP 101 / 52; Pulse 94; Resp 17; Temp 99.3; Pulse Ox 92% on 4 lpm NC; ll2 16:33 BP 92 / 53; Pulse 70; Resp 18; Pulse Ox 100% on 4 lpm NC; ll2 17:30 BP 157 / 68; Pulse 91; Resp 21; Pulse Ox 98% ; jd3 19:00 Weight 40.82 kg (R); jd3 20:05 BP 66 / 33; Pulse 55; Resp 13; Pulse Ox 100% on 4 lpm NC; ll2 21:53 BP 79 / 46; Pulse 53; Resp 23; Pulse Ox 100% on 4 lpm NC; ll2 22:43 BP 112 / 55; Pulse 54; Resp 15 S; Pulse Ox 100% on 3.5 lpm NC; jd3 23:23 BP 107 / 50; Pulse 68; Resp 15; Pulse Ox 83% on 4 lpm NC; ll2 23:23 O2 sat noted and assessed, pt didnt have a good wave form, O2 sat returned to 98% 4L N/Cll2 ED Course: 15:26 Patient arrived in ED. em1 15:27 Peter Guerrero MD is Attending Physician. kdr 15:32 Sara Gotti RN is Primary Nurse. ll2 15:38 Triage completed. ll2 16:06 Arm band placed on right wrist. ll2 16:34 Patient has correct armband on for positive identification. Fall risk band placed. ll2 Placed in gown. Bed in low position. Call light in reach. Side rails up X2. Adult w/ patient. 16:42 Chest Single View XRAY In Process Unspecified. EDMS 18:08 Attending Physician role handed off by Peter Guerrero MD raven 18:08 Terrance Howe MD is Attending Physician. raven 18:28 2 missed attempts, SAMANTHA Hall notified. ll2 18:39 Chowdary cath inserted, using sterile technique, by ED staff, balloon inflated, to gravity ss drainage, other [address] Howe as patient has very small urinary meatus anatomy. 18:40 Initial lab(s) drawn, by ED staff, sent to lab. First set of blood cultures drawn by ED ll2 staff. Inserted saline lock: 24 gauge in right hand, using aseptic technique. Blood collected. 18:45 Urine Microscopic Only Sent. [facility] 18:57 Daniela Rivas MD is Hospitalizing Provider. [facility] 19:10 COVID-19 Sent. [facility] 22:35 Assisted provider with central line placement. Set up central line tray. Triple lumen jd3 line placed in right femoral. Line placed by Terrance Howe MD Placement verified by blood return, Patient tolerated well. 22:55 Patient admitted, IV remains in place. jd3 Administered Medications: 17:24 Drug: Rocephin - (cefTRIAXone) 1 grams Route: IVPB; Infused Over: 30 mins; Site: right jd3 hand; 18:28 Follow up: Response: No adverse reaction; IV Status: Completed infusion ll2 19:18 Drug: ProTONIX 80 mg Route: IVP; Site: right hand; ll2 20:15 Follow up: Response: No adverse reaction jd3 19:18 Drug: Xopenex 2.5 mg Route: Inhalation; ll2 19:18 Drug: AtroVENT Aerosol 0.5 mg Route: Inhalation; ll2 20:58 Follow up: Response: No adverse reaction ll2 20:58 Drug: SOLU-Medrol 2 mg/kg Route: IVP; Site: right hand; ll2 21:50 Follow up: Response: No adverse reaction jd3 22:38 Drug: Zosyn 3.375 grams Route: IVPB; Infused Over: 60 mins; Site: right femoral; ll2 22:56 Follow up: Response: No adverse reaction; IV Status: Infusion continued upon admission jd3 22:38 Drug: NS 0.9% 1000 ml Route: IV; Rate: 1 bolus; Site: right femoral; ll2 22:56 Follow up: Response: No adverse reaction; IV Status: Infusion continued upon admission jd3 22:47 Not Given (Physician Discretion): Kayexalate 30 grams PO once jd3 Point of Care Testing: Blood Glucose: 16:06 Blood Glucose: 83 mg/dL; ll2 Ranges: Outcome: 18:58 Decision to Hospitalize by Provider. [facility] 22:54 Admitted to Med/surg accompanied by tech, via stretcher, room 402, with oxygen, with jd3 chart, Report called to Cortney SINGH 22:54 Condition: stable 22:54 Instructed on the need for admit, Demonstrated understanding of instructions. 23:26 Patient left the ED. ll2 Signatures: Dispatcher [employer] EDMS Terrance Howe MD MD cha Rittger, Kevin, MD MD kdr Martinez, Marcaino 1 Isabel Sibley RN RN Delores Bar 3 Shaheen Mayes RN RN jd3 Huhn, Donald 4 Sara Gotti RN RN ll2 Corrections: (The following items were deleted from the chart) 18:41 18:39 Chowdary cath inserted, using sterile technique, by ED staff, balloon inflated, to gravity drainage, ll2
[2020-06-25] MEDS ORDERED: PANTOPRAZOLE 40 MG INJ ONE (19:15)
[2020-06-25] MEDS ORDERED: LEVALBUTEROL 1.25 MG/3 ML NEB ONE (19:15)
[2020-06-25] MEDS ORDERED: IPRATROPIUM BROM 0.5MG/2.5ML ONE (19:15)
[2020-06-25] MEDS ORDERED: PIPER/TAZO/NS 3.375gm 3.375 GM/100 ML BAG ONE (19:16)
[2020-06-25 19:20] LABS: Albumin 2.4 g/dL (3.4-5.0); Bilirubin Direct 0.1 mg/dL (0-0.2); Bilirubin Total 0.4 mg/dL (0.2-1.0); CKMB Creatine Kinase MB 6.2 ng/mL (0.3-3.6); Protein, Total 6.5 g/dL (6.4-8.2); Troponin (Emerg Dept Use Only) 0.14 ng/mL (0.0-0.045)
[2020-06-25 19:23] LABS: Potassium 5.7 mmol/L (3.5-5.1)
[2020-06-25 19:24] LABS: Urine Blood TRACE (NEG); Urine Glucose NEGATIVE (NEG); Urine Protein NEGATIVE (NEG)
[2020-06-25 19:29] LABS: Urine Amorphous Sediment 2+ /HPF (NONE SEEN); Urine Bacteria 20-50 /HPF (<20); Urine Culture Reflex Order REFLEXED; Urine RBC <5 /HPF (NONE SEEN)
[2020-06-25 20:05] LABS: Arterial Blood Carboxyhemoglob 1.3 % (0-1.5); Blood Gas Oxyhemoglobin 95.5 % (94-97)
[2020-06-25] MEDS ORDERED: METHYLPREDNISOLONE 40 MG INJ ONE (20:11)
[2020-06-25] MEDS ORDERED: SOD POLYSTYREN SUL 15 GM/60 ML UCUP ONE (20:12)
--- NOTE | 2020-06-25 20:45 | RAD REPORT ---
EXAM DESCRIPTION: CT - Head Brain Wo Cont - 06/25/2020 8:37 pm CLINICAL HISTORY: MENTAL STATUS CHANGE Headache, drowsiness COMPARISON: No comparisons TECHNIQUE: All CT scans are performed using dose optimization technique as appropriate and may inclu de automated exposure control or mA/KV adjustment according to patient size. FINDINGS: No intracranial hemorrhage, hydrocephalus or extra-axial fluid collection.No areas of brai n edema or evidence of midline shift. The paranasal sinuses and mastoids are clear. The calvarium is intact. IMPRESSION: No acute intracranial abnormality.
--- NOTE | 2020-06-25 20:51 | P.HP ---
Certification for Inpatient With expected LOS: >2 Midnights Patient will require the following post-hospital care: None Practitioner: I am a practitioner with admitting privileges, knowledge of patient current condition, hospital course, and medical plan of care. Services: Services provided to patient in accordance with Admission requirements found in Title 42 Section 412.3 of the Code of Federal Regulations <Chadwick Gregorio - Last Filed: 06/25/20 20:42> Patient History Date of Service: 06/25/20 Reason for admission: PNA/AMBER/AMS History of Present Illness: 84-year-old female with past medical history of end-stage COPD on home oxygen, chronic diastolic congestive heart failure, anemia, GERD, essential hypertension and chronic pain is brought to the emergency room via EMS with complaints of decreased responsiveness, confusion and decreased mental status. Patient is alert but rapidly falls asleep. states that the patient was in the hospital 3 weeks ago and discharged home. States she was admitted for similar complaints. At that time patient was found to have acute encephalopathy likely related to chronic diastolic heart failure. See was discharged home and was doing well. Patient was brought to the emergency room last week and was sent home with antibiotics for UTI. Patient completed her antibiotics for UTI and has progressively worsened over the past 4 days. In the emergency room patient is somnolent. She is alert but confused. Patient is oriented to person. Has a states that she has just been having more health issues over the past month. States she has "Been going downhill" recently. States that she has not been eating or drinking fluids and is having a harder time getting her to eat or drink anything. and patient's wishes were to be DNR. In the emergency room lab work shows a white cell count slightly elevated at 13.3, hemoglobin of 7.5 with a hematocrit of 25.3 %period% creatinine of 3.02. Baseline is usually 0.96 on 06/11/2020. GFR 15, CK of 813 with a CK-MB of 6.2, troponin of 0.14. Patient's troponin was 0.23 on 06/04/2020. And a potassium of 5.7 slightly elevated. ABG shows a pH of 7.41 with a CO2 of 43.9 and an O2 of 107.0 on 4 L nasal cannula. Echocardiogram from 06/04/2020 shows an EF of 76%. CT abdomen pelvis pending and CT of the head pending. Chest x-ray suggest ady of pneumonia. UA unremarkable. Patient will be admitted and further evaluated. Home medications list reviewed: No - Past Medical/Surgical History Diabetic: No -: Hypertension -: Chronic vertebral fractures -: Former smoker -: GERD with hiatal hernia -: Anemia of chronic disease -: Chronic pain -: Diastolic CHF with pulmonary hypertension -: Carpal tunnel disease -: COPD, end-stage -: Back surgery -: Appendectomy -: carpal tunnel sx -: tubal ligation Psychosocial/ Personal History: Patient is and lives with - Family History Father -: Hypertension, Stroke Mother -: Hypertension, Stroke Brother -: Lung disease Sister -: Heart disease - Social History Smoking Status: Former smoker Alcohol use: No CD- Drugs: No Caffeine use: Yes Place of Residence: Home <Chadwick Gregorio - Last Filed: 06/25/20 20:42> Date of Service: 06/25/20 <Daniela Rivas - Last Filed: 06/29/20 18:47> Allergies clindamycin Allergy (Verified 04/28/20 19:09) unknown reaction codeine Allergy (Verified 04/28/20 19:09) unknown reaction Home Medications: Carvedilol [Coreg] 1 tab PO BIDWM 05/15/20 Gabapentin 1 cap PO TID 05/15/20 Hydrocodone/Acetaminophen [Hydrocodone-Acetamin 10-325 mg] 1 tab PO QIDP PRN 05/15/20 Lisinopril [Zestril] 40 mg PO DAILY 05/15/20 Pantoprazole [Protonix Tab*] 40 mg PO DAILY 05/15/20 Loratadine [Claritin*] 1 tab PO DAILY 06/05/20 Cholecalciferol (Vitamin D3) [Vitamin D3] 5,000 unit PO DAILY 06/26/20 Fluticasone/Umeclidin/Vilanter [Trelegy Ellipta 100-62.5-25] 1 each IH DAILY 06/26/20 Furosemide [Lasix] 20 mg PO BID 06/26/20 predniSONE [Deltasone*] 10 mg PO DAILY 06/26/20 Review of Systems is unable to be obtained General: As per HPI <Chadwick Gregorio - Last Filed: 06/25/20 20:42> Physical Examination - Vital Signs Temperature: 99.3 F Blood Pressure: 101/52 Pulse: 80 Respirations: 17 Pulse Ox (%): 100 (4 L NC) - Physical Exam General: Alert, In no apparent distress, Oriented x1 HEENT: Atraumatic, Normocephalic, PERRLA, Mucous membr. moist/pink Neck: Supple, No Thyromegaly, Other (Trachea midline) Respiratory: Clear to auscultation bilaterally, Normal air movement Cardiovascular: No edema, Normal pulses Capillary refill: <2 Seconds Gastrointestinal: Normal bowel sounds, Soft and benign, Non-distended Musculoskeletal: No clubbing, No swelling, No contractures, No erythema Integumentary: No rashes, No breakdown, No significant lesion, No tenderness/swelling Neurological: Normal tone, Sensation intact - Studies Laboratory Data (last 24 hrs) 06/25/20 17:07: PT 10.8, INR 0.91, APTT 28.8 06/25/20 17:07: WBC 13.3 H, Hgb 7.5 L*, Hct 25.3 L, Plt Count 283 06/25/20 17:07: Sodium 143, Potassium 5.7 H*, BUN 96 H, Creatinine 3.02 H, Glucose 80, Total Bilirubin 0.4, AST 39 H, ALT 14, Alkaline Phosphatase 63, Amylase 61, Lipase 326 <Chadwick Gregorio - Last Filed: 06/25/20 20:42> Assessment and Plan - Plan Impression: Altered mental status complicated by history of chronic diastolic heart failure, possible pneumonia and end-stage COPD: Chronic diastolic heart failure with elevated troponins: Acute kidney injury with elevated CK and CK-MB: End-stage COPD on home oxygen at 4 L nasal cannula: Anemia of chronic disease: Hyperkalemia: Essential hypertension: Plan: Altered mental status complicated by history of chronic diastolic heart failure, possible pneumonia and end-stage COPD: Likely a combination of multiple comorbidities. Will start IV antibiotics of Rocephin and azithromycin. Will place on telemetry. Patient is DNR. Will monitor vitals. Chronic diastolic heart failure with elevated troponins: Likely demand ischemia. Patient's troponins were elevated high either on 06/04/2020 at 0.23. Echocardiogram at that time showed an EF of 76% and normal wall motion. Patient is in no distress and per had not been complaining of chest pain. Acute kidney injury with elevated CK and CK-MB: Likely secondary to dehydration. states patient has not been the eating or drinking much in the last 4 days. Continue gentle IV fluids. Monitor vitals. End-stage COPD on home oxygen at 4 L nasal cannula: Patient is on home oxygen at 4 L nasal cannula per statement. She also has breathing treatments as needed. Will continue to monitor O2 saturations. Continue breathing treatments. Anemia of chronic disease: Patient noted to have a hemoglobin of 5.7 with a hematocrit of 25.3. Will receive 1 unit PRBCs in the ER. Monitor H&H. No evidence of active bleeding. Hyperkalemia: Given Kayexalate in the ER. Likely secondary to dehydration. Will monitor potassium. Place on continuous telemetry. Essential hypertension: Patient's blood pressure stable. Will hold off on restarting home medications for now. Discharge Plan: Home Plan to discharge in: Greater than 2 days - Advance Directives Does patient have a Living Will: No Does patient have a Durable POA for Healthcare: No - Code Status/Comfort Care Code Status Assessed: Yes Time Spent Managing Pts Care (In Minutes): 55 <Chadwick Gregorio - Last Filed: 06/25/20 20:42> Date of Service: 06/26/20 Agree with the above findings. Discussed case with HILDA. Events since admission noted. <Daniela Rivas - Last Filed: 06/29/20 18:47>
--- NOTE | 2020-06-25 20:52 | RAD REPORT ---
EXAM DESCRIPTION: CT - Abdomen Pelvis Wo Contrast - 06/25/2020 8:38 pm CLINICAL HISTORY: Abdominal pain. PAIN COMPARISON: No comparisons TECHNIQUE: CT imaging of the abdomen and pelvis was performed without contrast. Solid organ, bowel a nd vascular assessment is limited due to lack of IV and oral contrast. All CT scans are performed using dose optimization technique as appropriate and may include automated exposure control or mA/KV adjustment according to patient size. FINDINGS: Airspace infiltrate is present in the posterior left lung base with trace pleural effusion , likely representing pneumonia.Moderate axial hiatal hernia noted. The liver shows no gross mass or biliary dilatation. The spleen, pancreas and adrenal glands are with in normal limits. Punctate calculus is present left kidney without hydronephrosis. 15 mm cyst is seen posterior cortex right kidney. No right-sided stone or hydronephrosis. Small stones are likely prese nt in the gallbladder. No bowel obstruction, free air, free fluid or abscess. The appendix is normal. A large amount of sto ol is present in the rectum. Chowdary catheter is in place in the urinary bladder. The osseous structures are within normal limits. IMPRESSION: Posterior left lower lobe pneumonia. Possible cholelithiasis. Small nonobstructing left renal calculus. Rectal fecal impaction. Moderate hiatal hernia. A limited non-contrast examination was performed as detailed.
[2020-06-25] MEDS ORDERED: AZITHROMYCIN IV 500 MG in NA CHLORIDE 0.9% 250 ML IVPB SCH (21:00)
[2020-06-25] MEDS: NA CHLORIDE 0.9% 1,000 ML IV SCH (21:00)
[2020-06-25] MEDS ORDERED: NA CHLORIDE 0.9% 1,000 ML ONE (22:17)
[2020-06-26] MEDS ORDERED: NA CHLORIDE 0.9% 500 ML ONE (00:42)
[2020-06-26] MEDS ORDERED: NA CHLORIDE 0.9% 250 ML ONE (00:50)
[2020-06-26] MEDS ORDERED: AZITHROMYCIN 500 MG INJ IVPB ONE (00:50)
[2020-06-26 01:59] VITALS: BMI 16.8
[2020-06-26] MEDS: IPRATROPIUM BROM 0.5MG/2.5ML NEB PRN (02:03)
[2020-06-26 05:41] LABS: Magnesium 2.9 mg/dL (1.8-2.4); Potassium 5.5 mmol/L (3.5-5.1); Troponin I 0.15 ng/mL (0.0-0.045)
[2020-06-26] MEDS ORDERED: PNEUMOCOCCAL VACCINE 0.5 ML IMVAC ONE (08:00)
[2020-06-26] MEDS ORDERED: Levofloxacin500mg IV 500 MG/100 ML BAG IV SCH (10:00)
[2020-06-26] MEDS: NA CHLORIDE 0.9% 1,000 ML IV SCH ×3 (10:20→21:11)
[2020-06-26 10:36] LABS: Absolute Lymphocytes (CBC) 0.4 K/uL (0.7-4.9); Basophils % 0.1 % (0-1.3); Hematocrit 38.8 % (36.0-45.0); MPV 9.1 fL (7.6-11.3); RBC Red Blood Cell Count 4.52 M/uL (3.86-4.86)
[2020-06-26] MEDS: PIPER/TAZO/NS 2.25gm 2.25 GM/50 ML BAG IVPB SCH ×2 (11:07→18:17)
[2020-06-26] MEDS: Levofloxacin500mg IV 500 MG/100 ML BAG IV SCH (11:08)
[2020-06-26 11:18] LABS: Folic Acid, (Folate) 9.1 ng/mL (3.1-17.5); Magnesium 2.8 mg/dL (1.8-2.4); Thyroid Stimulating Hormone 0.395 uIU/mL (0.360-3.740)
[2020-06-26] MEDS: FENTANYL CITR 100 MCG/2 ML IV PRN ×2 (11:27→21:10)
[2020-06-26 12:27] LABS: Blood Morphology Comment NOT SEEN (NOT SEEN); Platelet Estimate ADEQ
[2020-06-26] MEDS ORDERED: MINERAL OIL 30 ML UCUP PO ONE (13:17)
[2020-06-26] MEDS ORDERED: CEFTRIAXONE 1 GM/NS 50 ML 1 GM/50 ML BAG IV SCH (16:00)
[2020-06-26] MEDS ORDERED: CEFTRIAXONE/SWI 1gm 1 GM/10 ML SYR IV SCH (17:00)
[2020-06-26] MEDS: ENSURE ENLIVE 237 ML CAN PO SCH (21:00)
[2020-06-27] MEDS: PIPER/TAZO/NS 2.25gm 2.25 GM/50 ML BAG IVPB SCH ×3 (01:22→16:59)
[2020-06-27] MEDS: FENTANYL CITR 100 MCG/2 ML IV PRN (06:50)
[2020-06-27] MEDS: ENSURE ENLIVE 237 ML CAN PO SCH ×2 (08:10→22:47)
[2020-06-27] MEDS ORDERED: FENTANYL CITR 100 MCG/2 ML IV ONE (11:17)
[2020-06-27] MEDS ORDERED: FENTANYL CITR 100 MCG/2 ML ONE (11:32)
[2020-06-27] MEDS: MINERAL OIL ENEMA 135 ML BTL PR SCH (12:20)
--- NOTE | 2020-06-27 13:06 | RAD REPORT ---
EXAM DESCRIPTION: MRI - Brain Wo Cont - 06/27/2020 12:33 pm CLINICAL HISTORY: Alteration of consciousness/confusion/weakness COMPARISON: June 25, 2020 cat scan TECHNIQUE: Axial, sagittal, and coronal magnetic images of the brain were obtained. Contrast was not requested FINDINGS: Images are degraded by patient motion artifact Diffusion-weighted/ADC mapping demonstrates 7 millimeter area of abnormal signal within the deep whit e matter of the left parietal lobe. A 5 millimeter area of abnormal signal is present within the deep white matter of the right frontal lobe. The abnormal signal within the left parietal lobe appears ac neema. The abnormal signal within the right frontal lobe appears subacute. The ventricles are normal caliber. An extra-axial fluid collection is not present Fluid within the sinuses/mastoids is not noted IMPRESSION: 7 millimeter acute infarct deep white matter left parietal lobe 5 millimeter subacute infarct deep right matter right parietal lobe
[2020-06-27] MEDS: NA CHLORIDE 0.9% 1,000 ML IV SCH (14:33)
[2020-06-27] MEDS ORDERED: ONDANSETRON 4 MG/2 ML VIAL IV PRN (16:36)
[2020-06-27] MEDS: CLOPIDOGREL 75 MG TABLET PO SCH (16:59)
[2020-06-27] MEDS: ASPIRIN EC 81 MG TAB PO SCH (16:59)
[2020-06-27] MEDS: ENOXAPARIN 30 MG/0.3 ML SQ SCH (17:00)
--- NOTE | 2020-06-27 19:22 | CON ---
Reason For Consultation: Consultation called because of possible stroke. History Of Present Illness: Ms. Vickers is an 85-year-old patient with history of COPD, hypertension, iron deficiency anemia, and reportedly prior episodes of confusion, which have resolved. I spoke wit h the patient's son, who was in the room. He said about 2 weeks ago, she began to be less interactiv e, more confused, disoriented, and had the possibility of pneumonia. He said she actually had about 4 hospitalizations with pneumonia where she would come in, get antibiotics, seem to do well, go back home, and then come right back after the antibiotics have been completed with more symptoms of pneumo melinda. At this hospitalization, she again is treated for possible pneumonia and has had workup includi ng a head CT scan and then brain MRI, which identified an acute 7 mm left parietal stroke and a subac ute mountain 5 mm right parietal stroke. Although, the patient's son could not clearly identify something nigel t may lead to when the subacute stroke occurred, it is possible that it was earlier either in this we ek or late last week when she seemed to take another turn from her interaction to less interactive be havior. Past Medical History: Hiatal hernia, chronic back pain managed by Dr. Flowers, pain management spec ialist in addition to chronic bronchitis, arthritis, carpal tunnel syndrome, and COPD with a long his tory of smoking. Allergies: CLINDAMYCIN AND CODEINE. Family History: Noncontributory. Social History: The patient lives with her and has a long history of smoking a pack of cigar ettes a day up to about less than a year ago and drinking about 4 mixed alcoholic drinks per week. Review of Systems: As indicated, repeated bouts of shortness of breath, pneumonia, and cough and some right-sided weakne ss involving the face and arm that fluctuated, chronic back pain making it difficult for her to do an y kind of physical exercise or activity. Otherwise, diffuse weakness from chronic anemia. Physical Examination: Vital Signs: Blood pressure 107/56, pulse 68, respiratory rate 15, oxygen saturation 100% on 3-4 L. General: Ms. Vickers is lying in bed, resting on the right side. She is in no acute distress. She is asleep, but easily aroused, and she is alert once alerted and oriented to person, place, and follows commands appropriately. Chest: In terms of air movement, equal on both sides. Abdomen: Soft. Extremities: No significant clubbing, cyanosis, or edema. Neurologic: She has a decrease in the right nasolabial fold that is subtle and also decreased sensat ion on the right compared to left face. Otherwise, tongue in the midline. Palate in the midline. I n terms of strength, she was lying on the right side and it was very difficult to determine if there is an asymmetry of strength. She did squeeze both hands appropriately. She did move proximally, eas miri on both upper extremities, although perhaps subtle right complete left-sided weakness noted. In the lower extremities, she did move both feet equally well, some difficulty bending the knees bilater ally, probably because of pain. Sensation, she did not have any extinction, she could identify left and right sensations in the feet and legs equally. Reflexes are depressed in the upper and lower ext remities. Coordination in the upper extremities intact, difficult to fully assess. In terms of gait , she had significant back pain and the therapists were unable to get her up to stand and ambulate. Laboratory Data: Reviewed. Assessment: Ms. Vickers is an 85-year-old patient with a subacute and acute stroke, possibly related t o chronic hypertension, cigarette smoking, repeated infections from pneumonia, and dehydration. She has significant chronic low back pain and is difficult to be able to withstand aggressive physical th erapy to aid in her recovery. Plan: She should continue with at least aspirin, perhaps along with Plavix 75 mg daily, folic acid, and high dose statin. She may benefit from speech therapy most likely in a longterm facility, as at home she would be at a high risk of a fall and perhaps fracture because it is just her and her , and he would not be able to care for her 24 hours a day as will be required at least until she is capable of her being able to be upright and transfer more safely. All this was discussed with the patient's son, his father was not in the room at the time, and they will make the decisions rega rding the transfer to a longterm facility as was discussed. URVASHI/SUNDEEP Voice ID: [id number] Report ID: [id number]
[2020-06-28] MEDS: PIPER/TAZO/NS 2.25gm 2.25 GM/50 ML BAG IVPB SCH ×3 (00:01→18:12)
[2020-06-28] MEDS: NA CHLORIDE 0.9% 1,000 ML IV SCH ×2 (04:05→18:13)
[2020-06-28] MEDS: FENTANYL CITR 100 MCG/2 ML IV PRN ×5 (05:53→21:44)
[2020-06-28] MEDS: ENOXAPARIN 30 MG/0.3 ML SQ SCH (09:00)
[2020-06-28] MEDS: ASPIRIN EC 81 MG TAB PO SCH (09:17)
[2020-06-28] MEDS: CLOPIDOGREL 75 MG TABLET PO SCH (09:17)
[2020-06-28] MEDS: ENSURE ENLIVE 237 ML CAN PO SCH ×2 (09:18→20:59)
[2020-06-28] MEDS: MINERAL OIL ENEMA 135 ML BTL PR SCH (12:00)
[2020-06-28] MEDS: Levofloxacin500mg IV 500 MG/100 ML BAG IV SCH (14:11)
[2020-06-29] MEDS: PIPER/TAZO/NS 2.25gm 2.25 GM/50 ML BAG IVPB SCH ×3 (00:43→15:50)
[2020-06-29] MEDS ORDERED: HYDRALAZINE HCL 20 MG/ML VIAL IV PRN (01:05)
[2020-06-29] MEDS: FENTANYL CITR 100 MCG/2 ML IV PRN ×3 (04:08→15:43)
[2020-06-29] MEDS: NA CHLORIDE 0.9% 1,000 ML IV SCH ×2 (05:00→18:20)
[2020-06-29] MEDS: ASPIRIN EC 81 MG TAB PO SCH (08:03)
[2020-06-29] MEDS: ENOXAPARIN 30 MG/0.3 ML SQ SCH (08:04)
[2020-06-29] MEDS: CLOPIDOGREL 75 MG TABLET PO SCH (08:04)
[2020-06-29] MEDS: ENSURE ENLIVE 237 ML CAN PO SCH ×2 (08:14→19:33)
[2020-06-29] MEDS: MINERAL OIL ENEMA 135 ML BTL PR SCH (12:00)
[2020-06-29] MEDS ORDERED: HYDROMORPHONE HCL 0.5 MG/0.5 ML INJ IV PRN (14:41)
[2020-06-29] MEDS ORDERED: dexAMETHasone 4 MG/ML VIAL IV ONE (14:41)
[2020-06-29] MEDS: CYCLOBENZAPRINE 10 MG TAB PO PRN (14:51)
[2020-06-29] MEDS: IPRATROPIUM BROM 0.5MG/2.5ML NEB PRN (17:58)
--- NOTE | 2020-06-29 18:52 | P.PN ---
Subjective Date of Service: 06/26/20 Patient having pain in the back. She has apparently suffer 3 vertebral fractures. This is happened in the past. She has kyphosis. She is not really doing much at this time. We are not able to get an MRI of the brain the will continue with anti-platelet therapy and statin therapy. Possibly related to in fectious etiology and continue with antibiotic coverage. Patient refusing blood draws. Reluctant to have anything done. Review of Systems 10-point ROS is otherwise unremarkable Physical Examination - Vital Signs Temperature: 98.7 F Blood Pressure: 180/80 Pulse: 66 Respirations: 18 Pulse Ox (%): 98 - Physical Exam General: Alert, In no apparent distress, Confused Respiratory: Clear to auscultation bilaterally, Normal air movement Cardiovascular: Regular rate/rhythm, Normal S1 S2 Gastrointestinal: Normal bowel sounds, Soft and benign, Non-distended, No tenderness Musculoskeletal: No clubbing, No swelling Neurological: Sensation intact, Cranial nerves 3-12 intact - Studies Medications List Reviewed: Yes Assessment & Plan - Problems (Diagnosis) (1) Altered awareness, transient Current Visit: Yes Status: Acute (2) Chronic thoracic back pain Current Visit: Yes Status: Acute (3) History of COPD Current Visit: Yes Status: Acute (4) Leukocytosis Current Visit: Yes Status: Acute (5) Generalized weakness Current Visit: Yes Status: Acute (6) AMBER (acute kidney injury) Current Visit: No Status: Acute - Plan Plan: 1. Gentle hydration 2. Pain control 3. Physical therapy evaluation 4. MRI of the brain 5. Neurology consultation 6. Anti-platelet therapy 7. Statin therapy 8. DVT prophylaxis 9. Antibiotic coverage 10. GI and DVT prophylax Discharge Plan: Half-Way Plan to discharge in: Greater than 2 days - Advance Directives Does patient have a Living Will: Yes Does patient have a Durable POA for Healthcare: Yes - Code Status/Comfort Care Code Status Assessed: Yes Code Status: Do Not Attempt Resuscitat Critical Care: No Time Spent Managing PTS Care (In Minutes): 35
--- NOTE | 2020-06-29 18:56 | P.PN ---
Subjective Date of Service: 06/27/20 MRI of the brain revealed multiple infarcts. Continue with anti-platelet therapy and statin therapy. Neurology spoke with family as well. Patient strength has improved from admission and neurologically she is doing better. However, she is not able to really participate with physical therapy aggressively and she will probably need inpatient rehab or penitentiary facility placement. Family would prefer [facility]. Review of Systems 10-point ROS is otherwise unremarkable Physical Examination - Vital Signs Temperature: 98.7 F Blood Pressure: 180/80 Pulse: 66 Respirations: 18 Pulse Ox (%): 98 - Physical Exam General: Alert, In no apparent distress, Oriented x3 Respiratory: Clear to auscultation bilaterally, Normal air movement Cardiovascular: Regular rate/rhythm, Normal S1 S2, No murmurs Gastrointestinal: Normal bowel sounds, Soft and benign, Non-distended, No tenderness Musculoskeletal: No clubbing, No swelling, No tenderness Neurological: Sensation intact, Cranial nerves 3-12 intact Lymphatics: No axilla or inguinal lymphadenopathy - Studies Medications List Reviewed: Yes Assessment & Plan - Problems (Diagnosis) (1) Altered awareness, transient Current Visit: Yes Status: Acute (2) Chronic thoracic back pain Current Visit: Yes Status: Acute (3) History of COPD Current Visit: Yes Status: Acute (4) Leukocytosis Current Visit: Yes Status: Acute (5) Generalized weakness Current Visit: Yes Status: Acute (6) AMBER (acute kidney injury) Current Visit: No Status: Acute - Plan Plan: Continue with plan of care as mentioned below 1. Gentle hydration; diet as tolerated; swallowing assessed at bedside and is appropriate for her diet as tolerated 2. Pain control; patient chronic pain and will continue with anti-inflammatories as well as pain medication. 3. Physical therapy evaluation appreciated. Patient max assist. Arrange for inpatient rehab for penitentiary facility placement. Family would prefer [facility] if she goes to a SNF 4. MRI of the brain is pending 5. Neurology consultation appreciated 6. Anti-platelet therapy 7. Statin therapy 8. DVT prophylaxis 9. Antibiotic coverage; may DC since MRI is positive and explained her diminished neurologic condition upon admission 10. GI and DVT prophylax Discharge Plan: Home Plan to discharge in: Greater than 2 days - Advance Directives Does patient have a Living Will: Yes Does patient have a Durable POA for Healthcare: Yes - Code Status/Comfort Care Code Status Assessed: Yes Code Status: Do Not Attempt Resuscitat Critical Care: No Time Spent Managing PTS Care (In Minutes): 30
--- NOTE | 2020-06-29 18:59 | P.PN ---
Subjective Date of Service: 06/28/20 Patient doing well with no new complaints. Continues to slowly improve. Still hurting in the lower back. She is however talking to me much more. Review of Systems 10-point ROS is otherwise unremarkable Physical Examination - Vital Signs Temperature: 98.7 F Blood Pressure: 180/80 Pulse: 66 Respirations: 18 Pulse Ox (%): 98 - Physical Exam General: Alert, In no apparent distress, Oriented x3, Demented Respiratory: Clear to auscultation bilaterally, Normal air movement Cardiovascular: Regular rate/rhythm, Normal S1 S2, No murmurs Gastrointestinal: Normal bowel sounds, Soft and benign, Non-distended, No tenderness Musculoskeletal: No clubbing, No swelling, No tenderness Integumentary: No rashes Neurological: Sensation intact, Cranial nerves 3-12 intact, Abnormal gait, Abnormal strength, Abnormal tone - Studies Medications List Reviewed: Yes Assessment & Plan - Problems (Diagnosis) (1) Altered awareness, transient Current Visit: Yes Status: Acute (2) Chronic thoracic back pain Current Visit: Yes Status: Acute (3) History of COPD Current Visit: Yes Status: Acute (4) Leukocytosis Current Visit: Yes Status: Acute (5) Generalized weakness Current Visit: Yes Status: Acute (6) AMBER (acute kidney injury) Current Visit: No Status: Acute - Plan Plan: Continue with plan of care as mentioned below 1. Hep-Lock IV if tolerating diet 2. Pain control; patient chronic pain and will continue with anti-inflammatories as well as pain medication. 3. Physical therapy evaluation appreciated. Patient max assist. Having a difficult time sitting up on the side of the bed by herself. Arrange for inpatient rehab for longterm facility placement. Family would prefer [facility] if she goes to a SNF 4. MRI of the brain revealed 2 strokes-1 was subacute and the other was an acute stroke; 5. Neurology consultation appreciated 6. Anti-platelet therapy 7. Statin therapy 8. DVT prophylaxis 9. Will Dc antibiotic coverage 10. GI and DVT prophylax Discharge Plan: Home Plan to discharge in: Greater than 2 days - Advance Directives Does patient have a Living Will: Yes Does patient have a Durable POA for Healthcare: Yes - Code Status/Comfort Care Code Status: Do Not Attempt Resuscitat Critical Care: No Time Spent Managing PTS Care (In Minutes): 30
--- NOTE | 2020-06-29 19:03 | P.PN ---
Subjective Date of Service: 06/29/20 Patient continues to slowly improve. Still having the back pain which we have medicated her. Family is requesting longterm facility placement at [facility]. Will work on this tomorrow. Continue with physical therapy. Swallow study has been assessed and she tolerates diet adequately. Continue with DVT prophylaxis along with anti-platelet therapy and statin therapy. Review of Systems 10-point ROS is otherwise unremarkable Physical Examination - Vital Signs Temperature: 98.7 F Blood Pressure: 180/80 Pulse: 66 Respirations: 18 Pulse Ox (%): 98 - Physical Exam General: Alert, In no apparent distress, Oriented x3 Respiratory: Clear to auscultation bilaterally, Normal air movement Cardiovascular: Regular rate/rhythm, Normal S1 S2, No murmurs Gastrointestinal: Normal bowel sounds, Soft and benign, Non-distended, No tenderness Musculoskeletal: No clubbing, No swelling, No tenderness Neurological: Abnormal strength, Abnormal tone, Abnormal sensation - Studies Medications List Reviewed: Yes Assessment & Plan - Problems (Diagnosis) (1) Altered awareness, transient Current Visit: Yes Status: Acute (2) Chronic thoracic back pain Current Visit: Yes Status: Acute (3) History of COPD Current Visit: Yes Status: Acute (4) Leukocytosis Current Visit: Yes Status: Acute (5) Generalized weakness Current Visit: Yes Status: Acute (6) AMBER (acute kidney injury) Current Visit: No Status: Acute - Plan Plan: Continue with plan of care as mentioned below 1. Hep-Lock IV 2. Pain control 3. Physical therapy evaluation appreciated. Patient max assist. Having a difficult time sitting up on the side of the bed by herself. Arrange longterm facility placement. Family would prefer [facility]. 4. MRI of the brain revealed 2 strokes-1 was subacute and the other was an acute stroke; continue monitoring 5. Neurology consultation appreciated 6. Anti-platelet therapy 7. Statin therapy 8. DVT prophylaxis 9. Will Dc antibiotic coverage 10. GI and DVT prophylax Discharge Plan: [facility] Plan to discharge in: 48 Hours - Advance Directives Does patient have a Living Will: Yes Does patient have a Durable POA for Healthcare: Yes - Code Status/Comfort Care Code Status Assessed: Yes Code Status: Do Not Attempt Resuscitat Critical Care: No Time Spent Managing PTS Care (In Minutes): 35
[2020-06-29] MEDS ORDERED: carvediloL 12.5 MG TAB PO ONE (19:04)
[2020-06-29] MEDS ORDERED: FUROSEMIDE 20 MG TABLET PO PRN (19:05)
[2020-06-29 19:09] LABS: Absolute Lymphocytes (CBC) 0.5 K/uL (0.7-4.9); Basophils % 0.2 % (0-1.3); Hematocrit 36.6 % (36.0-45.0); Lymphocytes % 6.3 % (15.3-44.8); MPV 8.6 fL (7.6-11.3); RBC Red Blood Cell Count 4.23 M/uL (3.86-4.86)
[2020-06-29] MEDS: HYDROCODONE/APAP 10/325 TAB PO PRN (19:33)
[2020-06-29 19:40] LABS: Blood Morphology Comment NOTED (NOT SEEN); Elliptocytes 1+; Platelet Estimate ADEQ
[2020-06-29 20:44] LABS: Potassium 3.8 mmol/L (3.5-5.1)
[2020-06-29] MEDS ORDERED: GABAPENTIN 300 MG CAP PO SCH (21:00)
[2020-06-29] MEDS ORDERED: FUROSEMIDE 20 MG TABLET PO SCH (21:00)
[2020-06-30] MEDS: HYDROCODONE/APAP 10/325 TAB PO PRN ×3 (01:34→20:01)
[2020-06-30] MEDS: FENTANYL CITR 100 MCG/2 ML IV PRN (03:32)
[2020-06-30 05:14] LABS: Basophils % 0.1 % (0-1.3); Hematocrit 32.6 % (36.0-45.0); Lymphocytes % 14.4 % (15.3-44.8); MPV 8.8 fL (7.6-11.3); RBC Red Blood Cell Count 3.75 M/uL (3.86-4.86)
[2020-06-30 05:32] LABS: BUN Blood Urea Nitrogen 35 mg/dL (7-18); Bicarbonate 30 mmol/L (21-32); Glucose Level 114 mg/dL (74-106); Potassium 3.8 mmol/L (3.5-5.1); Sodium Level 156 mmol/L (136-145)
[2020-06-30] MEDS ORDERED: MELATONIN 3 MG TABLET PO PRN (06:33)
--- NOTE | 2020-06-30 07:00 | RAD REPORT ---
EXAM DESCRIPTION: RAD - Chest Single View - 06/30/2020 6:18 am CLINICAL HISTORY: pneumonia COMPARISON: June 25 TECHNIQUE: AP portable chest image was obtained 06/30/2020 6:18 am . FINDINGS: Bilateral apical pleural thickening is present worse on the right. Patient has a prominent baseline interstitial opacification pattern. Lung volumes are reduced compared to the prior study. R etrocardiac left base is poorly aerated. Left hemidiaphragm is obscured. Left base pneumonia remains. Mediastinum is distorted by significant rotation. Heart and vasculature are normal. No measurable ple ural effusion and no pneumothorax. No acute bony abnormality seen. No acute aortic findings suspected . IMPRESSION: Left base opacification obscuring the left hemidiaphragm. This is worse than prior study which may be the affects of persistent pneumonia and shallow inspiration. Diffusely prominent interstitial pattern throughout all lung boss.
--- NOTE | 2020-06-30 08:14 | EEG ---
CHART: [id number] TEST ID#: [id number] DATE OF STUDY: 06/27/2020 THE EEG WAS RECORDED PORTABLE IN THE PATIENT'S ROOM ON A 17 CHANNEL MACHINE. ELECTRODES WERE APPLIED IN THE USUAL MANNER USING THE INTERNATIONAL 10-20 SYSTEM. THE WAKING BACKGROUND RHYTHM IN THIS RECORD CONSISTS OF FAIRLY WELL DEVELOPED AND FAIRLY WELL ORGANIZED WAVES OF 7 HZ., MAXIMAL IN THE POSTERIOR HEAD REGIONS WHICH ATTENUATE FAIRLY NORMALLY WITH EYE OPENING. LOW-VOLTAGE 15-18 ACTIVITY MIXED WITH OCCASIONAL MODERATE VOLTAGE 1.5-3 HZ ACTIVITY EXPRESSED IN THE FRONTAL REGIONS. THERE ARE NO FOCAL OR LATERALIZING FEATURES. NO EPILEPTIFORM ACTIVITY APPEARS. SLEEP DID NOT OCCUR. HYPERVENTILATION WAS NOT PERFORMED. PHOTIC STIMULATION PRODUCED NO DRIVING BILATERALLY. IMPRESSION: THIS IS A MILDLY ABNORMAL EEG DUE TO A MILDLY SLOW BACKGROUND. THIS ISABELLA NON-SPECIFIC FINDING INDICATING THE PRESENCE OF A MILD DIFFUSE DISTURBANCE IN CEREBRAL FUNCTION.
[2020-06-30] MEDS: ENOXAPARIN 30 MG/0.3 ML SQ SCH (09:00)
[2020-06-30] MEDS ORDERED: HOME MED 1 EA UNK (Fluticasone/Umeclidin/Vilanter [Trelegy Ellipta 100-62.5-25] 1 EACH) IH SCH (09:00)
[2020-06-30] MEDS ORDERED: POTASSIUM CL SA 10 MEQ TAB PO ONE (09:00)
[2020-06-30] MEDS: carvediloL 12.5 MG TAB PO SCH ×2 (09:14→17:31)
[2020-06-30] MEDS: predniSONE 10 MG TAB PO SCH (09:14)
[2020-06-30] MEDS: GABAPENTIN 400 MG CAP PO SCH ×3 (09:14→20:01)
[2020-06-30] MEDS: LORATADINE 10 MG TAB PO SCH (09:14)
[2020-06-30] MEDS: CLOPIDOGREL 75 MG TABLET PO SCH (09:14)
[2020-06-30] MEDS: ASPIRIN EC 81 MG TAB PO SCH (09:15)
[2020-06-30] MEDS: PANTOPRAZOLE 40MG TABLET PO SCH (09:15)
[2020-06-30] MEDS: lisinopriL 20 MG TAB PO SCH (09:15)
[2020-06-30] MEDS: VITAMIN D 5,000 UNIT CAP PO SCH (09:15)
[2020-06-30] MEDS: ENSURE ENLIVE 237 ML CAN PO SCH ×2 (09:15→20:14)
--- NOTE | 2020-06-30 14:56 | P.PN ---
Subjective Date of Service: 06/30/20 Chief Complaint: PNA/AMBER/AMS Subjective: Improving, Doing well Physical Examination - Vital Signs Temperature: 98.3 F Blood Pressure: 145/67 Pulse: 64 Respirations: 18 Pulse Ox (%): 99 - Physical Exam General: Alert, Cooperative HEENT: Atraumatic Neck: Supple Respiratory: Clear to auscultation bilaterally, Normal air movement, Other (On nasal cannula) Neurological: Normal speech, Normal strength at 5/5 x4 extr, Normal tone, Normal affect - Studies Microbiology Data (last 24 hrs): 06/25/20 18:56 Nasopharnyx Coronavirus COVID-19 PCR - Final Medications List Reviewed: Yes Assessment & Plan Discharge Plan: Other (long term facility) Plan to discharge in: 24 Hours Physician Review Additional Text: Impression: CVA, 7 millimeter acute infarct deep white matter left parietal lobe and 5 millimeter subacute infarct deep right matter right parietal lobe Acute renal injury COPD on chronic oxygen and steroid dependent Chronic back pain HTN Plan: Continue aspirin and Plavix. Continue with current medications. Patient currently being evaluated for skilled placement. Await approval. Patient also on medication for hypertension and hyperlipidemia. Continue physical therapy if stable. Continue medication for pain. Patient on DVT prophylaxis. Continue current plan of care. Time Spent Managing Pts Care (In Minutes): 55
[2020-06-30] MEDS: CYCLOBENZAPRINE 10 MG TAB PO PRN (18:17)
[2020-07-01] MEDS: HYDROCODONE/APAP 10/325 TAB PO PRN ×3 (03:00→13:02)
--- NOTE | 2020-07-01 07:43 | P.PN ---
Subjective Date of Service: 07/01/20 Chief Complaint: PNA/AMBER/AMS Subjective: Doing well Physical Examination - Vital Signs Temperature: 97.7 F Blood Pressure: 136/63 Pulse: 57 Respirations: 16 Pulse Ox (%): 99 - Physical Exam General: Alert, In no apparent distress, Oriented x3, Cooperative HEENT: Atraumatic Neck: Supple Respiratory: Clear to auscultation bilaterally, Normal air movement Cardiovascular: Normal pulses, Regular rate/rhythm Neurological: Normal speech, Normal strength at 5/5 x4 extr, Normal tone, Normal affect - Studies Microbiology Data (last 24 hrs): 06/25/20 19:06 Blood - Blood Aerobic Blood Culture - Final No growth in 5 days. 06/25/20 19:06 Blood - Blood Anaerobic Blood Culture - Final No growth in 5 days. 06/25/20 17:07 Blood - Blood Aerobic Blood Culture - Final No growth in 5 days. 06/25/20 17:07 Blood - Blood Anaerobic Blood Culture - Final No growth in 5 days. 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 Patient on DVT prophylaxis. Continue with physical therapy. Patient awaiting approval to go to a skilled facility. Anticipate likely discharge to skilled facility today. Acute renal injury with hypernatremia likely from dehydration: Overall improved. Encourage oral intake. Will adjust medications accordingly. End stage COPD on chronic oxygen and steroid dependent: Continue with oral steroid and oxygen. Continue COPD medication. Patient understands that she has end-stage COPD. Patient is do not resuscitate. Hospice was offered during the course of her stay. She does not want hospice at this time. Awaiting approval for skilled placement. Chronic back pain: Continue medication HTN: Continue medication Anemia of chronic disease: Hemoglobin stable. Monitor this closely. Patient received transfusion during her stay. GERD with hiatal hernia: Continue medication. Recommend no further use of nonsteroidal anti-inflammatories. Chronic diastolic CHF: Continue with fluid restriction. Lasix to be use as needed. No need for Lasix at this time. Continue oxygen Time Spent Managing Pts Care (In Minutes): 55
[2020-07-01] MEDS ORDERED: POTASSIUM CL SA 10 MEQ TAB PO ONE (08:00)
[2020-07-01] MEDS ORDERED: ASPIRIN EC 81 MG TAB PO SCH (09:00)
[2020-07-01] MEDS: PANTOPRAZOLE 40MG TABLET PO SCH (09:15)
[2020-07-01] MEDS: VITAMIN D 5,000 UNIT CAP PO SCH (09:15)
[2020-07-01] MEDS: ENOXAPARIN 30 MG/0.3 ML SQ SCH (09:15)
[2020-07-01] MEDS: predniSONE 10 MG TAB PO SCH (09:16)
[2020-07-01] MEDS: GABAPENTIN 400 MG CAP PO SCH ×2 (09:16→13:03)
[2020-07-01] MEDS: carvediloL 12.5 MG TAB PO SCH ×2 (09:17→17:02)
[2020-07-01] MEDS: CLOPIDOGREL 75 MG TABLET PO SCH (09:17)
[2020-07-01] MEDS: LORATADINE 10 MG TAB PO SCH (09:17)
[2020-07-01] MEDS: lisinopriL 20 MG TAB PO SCH (09:18)
[2020-07-01] MEDS: ENSURE ENLIVE 237 ML CAN PO SCH (09:32)
[2020-07-01 10:38] VITALS: O2SAT 95
[2020-07-01] MEDS: IPRATROPIUM BROM 0.5MG/2.5ML NEB PRN (11:16)
--- NOTE | 2020-07-01 12:17 | P.DS ---
Admission Date: 06/25/20 Discharge Date: 07/01/20 Primary Care Provider: Dr. Wong Disposition: TRANSFER TO SNF - MEDICAL Discharge Condition: GOOD Reason for Admission: PNA/AMBER/AMS Consultations: Neurology-Dr. Goss Procedures: MRI Brain: FINDINGS: Images are degraded by patient motion artifact Diffusion-weighted/ADC mapping demonstrates 7 millimeter area of abnormal signal within the deep white matter of the left parietal lobe. A 5 millimeter area of abnormal signal is present within the deep white matter of the right frontal lo be. The abnormal signal within the left parietal lobe appears acute. The abnormal signal within the right frontal lobe appears subacute. The ventricles are normal caliber. 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 Patient presented with increase confusion. Over the past 2 weeks patient has been less interactive and more confused. She had had 4 prior hospitalizations for pneumonia. Patient admitted for further evaluation. Hospital Course: Patient presented with altered mental status-confusion. Metabolic encephalopathy was suspected. There was also some question of possible pneumonia but this was excluded. Upon further evaluation MRI showed evidence of CVA. 7 mm acute infarct to the deep white matter left parietal lobe along with a 5 mm subacute infarct deep right matter to the right parietal lobe were noted. Neurology was consulted. Patient received aspirin and Plavix. Patient worked with physical therapy. Patient has done well during the course of her stay. There was some consideration of hospice but the patient preferred not at this time. Advanced care planning was addressed. Patient wishes to go to a skilled facility to continue rehab. Patient has been accepted. At discharge patient will continue with aspirin 81 mg daily, folic acid 1 mg daily and Plavix 75 mg daily. No need for statin medication as LDL was 33. At discharge she is without significant confusion. Patient stable for discharge. Speech initially evaluated patient. They recommended pureed diet. The prior to discharge patient was re-evaluated. No evidence of dysphagia. Patient may continue with [employer] diet. Patient also had acute renal injury with hypernatremia likely from dehydration. This improved during the course of her stay. At discharge she will continue with Ensure Enlive 1 can twice daily. Patient with end-stage COPD on chronic oxygen and steroid dependent. This has remained stable. Patient was ruled out to have pneumonia at this time. At discharge patient will continue with her medication including Trelegy 1 puff daily and albuterol 2 puffs twice daily as needed for shortness of breath. At discharge she will also continue with oxygen maintain sats above 93%. Patient currently on 2 L per nasal cannula. Patient also takes prednisone 10 mg daily which she will continue. Patient with hypertension. This has remained stable. At discharge she will continue with lisinopril 40 mg daily. Recommend to monitor blood pressure daily. Recommend to maintain blood pressure less 150/80. Further adjustment can be done by her PCP. Patient with anemia of chronic disease. Recommend multi vitamin daily. This can be followed as an outpatient. Patient with GERD and hiatal hernia. Recommend no further use of nonsteroidal anti-inflammatories. At discharge patient will continue with Protonix 40 mg daily. Patient with chronic diastolic CHF. Patient has done well with fluid restriction only. Patient takes Lasix 20 mg. At discharge she may continue with a 1500 cc per day fluid restriction. Recommend to monitor her weight daily. If with increasing edema then patient may take Lasix 20 mg b.i.d. as needed. This can be further adjusted at the alf. Patient may also continue with Claritin 10 mg daily, melatonin 3 mg at bedtime for insomnia, and vitamin D3 daily. Patient also has chronic back pain. At discharge she will continue with her medications including gabapentin 300 mg 3 times a day and hydrocodone 10/325 mg 1 pill 4 times a day as needed for pain. As mentioned before patient is do not resuscitate. Patient does not wish hospice at this time. Patient will continue with therapy at the [facility] facility then may return home with home health. Vital Signs/Physical Exam: Temp Pulse Resp BP Pulse Ox 98.2 F 68 18 147/71 H 95 07/01/20 09:15 07/01/20 09:18 07/01/20 09:15 07/01/20 09:18 07/01/20 09:15 General: Alert, In no apparent distress, Oriented x3, Cooperative HEENT: Atraumatic Neck: Supple Respiratory: Clear to auscultation bilaterally Cardiovascular: Normal pulses, Regular rate/rhythm Gastrointestinal: Normal bowel sounds, Soft and benign, Non-distended Neurological: Normal speech, Normal strength at 5/5 x4 extr, Normal tone, Normal affect Laboratory Data at Discharge: WBC 6.8 K/uL (4.3-10.9) 06/30/20 04:39 Hgb 10.2 g/dL (12.0-15.0) L 06/30/20 04:39 Hct 32.6 % (36.0-45.0) L 06/30/20 04:39 Plt Count 197 K/uL (152-406) 06/30/20 04:39 PT 10.8 SECONDS (9.5-12.5) 06/25/20 17:07 INR 0.91 06/25/20 17:07 APTT 28.8 SECONDS (24.3-36.9) 06/25/20 17:07 Sodium Cancelled 07/01/20 05:00 Potassium Cancelled 07/01/20 05:00 BUN Cancelled 07/01/20 05:00 Creatinine Cancelled 07/01/20 05:00 Glucose Cancelled 07/01/20 05:00 Magnesium 2.8 mg/dL (1.8-2.4) H 06/26/20 10:15 Total Bilirubin 0.4 mg/dL (0.2-1.0) 06/25/20 17:07 AST 39 U/L (15-37) H 06/25/20 17:07 ALT 14 U/L (12-78) 06/25/20 17:07 Alkaline Phosphatase 63 U/L (45-117) 06/25/20 17:07 Troponin I 0.12 ng/mL (0.0-0.045) H 06/26/20 10:15 Triglycerides 154 mg/dL (<150) H 06/28/20 06:44 Cholesterol 118 mg/dL (<200) 06/28/20 06:44 HDL Cholesterol 54 mg/dL (40-60) 09/26/20 06:44 Cholesterol/HDL Ratio 2.19 06/28/20 06:44 Amylase 61 U/L (25-115) 06/25/20 17:07 Lipase 326 U/L (73-393) 06/25/20 17:07 Home Medications: Carvedilol [Coreg] 1 tab PO BIDWM 05/15/20 Gabapentin 1 cap PO TID 05/15/20 Hydrocodone/Acetaminophen [Hydrocodone-Acetamin 10-325 mg] 1 tab PO QIDP PRN 05/15/20 Lisinopril [Zestril] 40 mg PO DAILY 05/15/20 Pantoprazole [Protonix Tab*] 40 mg PO DAILY 05/15/20 Loratadine [Claritin*] 1 tab PO DAILY 06/05/20 Cholecalciferol (Vitamin D3) [Vitamin D3] 5,000 unit PO DAILY 06/26/20 Fluticasone/Umeclidin/Vilanter [Trelegy Ellipta 100-62.5-25] 1 each IH DAILY 06/26/20 Furosemide [Lasix] 20 mg PO BID 06/26/20 predniSONE [Deltasone*] 10 mg PO DAILY 06/26/20 Albuterol Inhaler [Ventolin Inhaler*] 2 puff IH Q6H PRN #1 hfa.aer.ad 07/01/20 Aspirin [Aspirin EC 81 MG] 81 mg PO DAILY #30 tablet. 07/01/20 Clopidogrel Bisulfate [Plavix*] 75 mg PO DAILY #30 tablet 07/01/20 Ensure Enlive 237 ml PO BID #60 can 07/01/20 Folic Acid 1 mg PO DAILY #90 tablet 07/01/20 Melatonin [Melatonin*] 3 mg PO BEDTIME PRN PRN #30 tablet 07/01/20 New Medications: Aspirin [Aspirin EC 81 MG] 81 mg PO DAILY #30 tablet. Ensure Enlive 237 ml PO BID #60 can Folic Acid 1 mg PO DAILY #90 tablet Melatonin [Melatonin*] 3 mg PO BEDTIME PRN PRN #30 tablet PRN Reason: Insomnia Clopidogrel Bisulfate [Plavix*] 75 mg PO DAILY #30 tablet Albuterol Inhaler [Ventolin Inhaler*] 2 puff IH Q6H PRN #1 hfa.aer.ad PRN Reason: Shortness Of Breath Patient Discharge Instructions: 1. Patient will be transferred to skilled facility to continue therapy. 2. Patient presented with altered mental status- confusion. Metabolic encephalopathy was suspected. There was also some question of possible pneumonia. Upon further evaluation MRI showed evidence of CVA. 7 mm acute infarct to the deep white matter left parietal lobe along with a 5 mm subacute infarct deep right matter to the right parietal lobe were noted. Neurology was consulted. Patient received aspirin and Plavix. Patient worked with physical therapy. Patient has done well during the course of her stay. There was some consideration of hospice but the patient preferred not at this time. Advanced care planning was addressed. Patient wishes to go to a skilled facility to continue rehab. Patient has been accepted. At discharge patient will continue with aspirin 81 mg daily, folic acid 1 mg daily and Plavix 75 mg daily. No need for statin medication as LDL was 33. 3. Speech initially evaluated patient. They recommended pureed diet. The prior to discharge patient was re-evaluated. No evidence of dysphagia. Patient may continue with [employer] diet. 4. Patient also had acute renal injury with hypernatremia likely from dehydration. This improved during the course of her stay. At discharge she will continue with Ensure Enlive 1 can twice daily. 5. Patient with end-stage COPD on chronic oxygen and steroid dependent. This has remained stable. Patient was ruled out to have pneumonia at this time. At discharge patient will continue with her medication including Trelegy 1 puff daily and albuterol 2 puffs twice daily as needed for shortness of breath. At discharge she will also continue with oxygen maintain sats above 93%. Patient currently on 2 L per nasal cannula. Patient also takes prednisone 10 mg daily which she will continue. 6. Patient with hypertension. This has remained stable. At discharge she will continue with lisinopril 40 mg daily. Recommend to monitor blood pressure daily. Recommend to maintain blood pressure less 150/80. Further adjustment can be done by her PCP. 7. Patient with anemia of chronic disease. Recommend multi vitamin daily. This can be followed as an outpatient. 8. Patient with GERD and hiatal hernia. Recommend no further use of nonsteroidal anti-inflammatories. At discharge patient will continue with Protonix 40 mg daily. 9. Patient with chronic diastolic CHF. Patient has done well with fluid restriction only. Patient takes Lasix 20 mg. At discharge she may continue with a 1500 cc per day fluid restriction. Recommend to monitor her weight daily. If with increasing edema then patient may take Lasix 20 mg b.i.d. as needed. This can be further adjusted at the alf. 10. Patient may also continue with Claritin 10 mg daily, melatonin 3 mg at bedtime for insomnia, and vitamin D3 daily. 11. Patient also has chronic back pain. At discharge she will continue with her medications including gabapentin 300 mg 3 times a day and hydrocodone 10/325 mg 1 pill 4 times a day as needed for pain. 12. As mentioned before patient is do not resuscitate. Patient does not wish hospice at this time. Patient will continue with therapy at the [facility] facility then may return home with home health. Diet: AHA Activity: Fall precautions Time spent managing pt's care (in minutes): 55
[2020-07-01 16:34] VITALS: BP 152/72; TEMP 97.9
== END 2020-07-01 17:45 | DRG 64 ==
LOC: ER 15:22 → ERHOLD 20:36 → 4TH 23:00 → 2ND 07-01 14:51
PROVIDERS: ADMIT Hospitalist; ATTEND Family Medicine
PROC: 30233N1 Transfusion of Nonautologous Red Blood Cells into Peripheral Vein, Percutaneous Approach (ICD-10-PCS; principal; 2020-06-26)
DX: I63.9 Cerebral infarction, unspecified (principal); E43 Unspecified severe protein-calorie malnutrition; G93.41 Metabolic encephalopathy; Z68.1 Body mass index [BMI] 19.9 or less, adult; I50.32 Chronic diastolic (congestive) heart failure; N17.9 Acute kidney failure, unspecified; E87.0 Hyperosmolality and hypernatremia; I11.0 Hypertensive heart disease with heart failure; J44.9 Chronic obstructive pulmonary disease, unspecified; Z99.81 Dependence on supplemental oxygen; K21.9 Gastro-esophageal reflux disease without esophagitis; G89.29 Other chronic pain; Z66 Do not resuscitate; Z87.891 Personal history of nicotine dependence; Z98.51 Tubal ligation status; Z90.49 Acquired absence of other specified parts of digestive tract; Z88.1 Allergy status to other antibiotic agents; Z79.52 Long term (current) use of systemic steroids; Z79.899 Other long term (current) drug therapy; R79.89 Other specified abnormal findings of blood chemistry; E87.5 Hyperkalemia; D63.8 Anemia in other chronic diseases classified elsewhere; D72.829 Elevated white blood cell count, unspecified; M54.6 Pain in thoracic spine; R53.1 Weakness; F03.90 Unspecified dementia, unspecified severity, without behavioral disturbance, psychotic disturbance, mood disturbance, and anxiety; E78.5 Hyperlipidemia, unspecified; E86.0 Dehydration; K44.9 Diaphragmatic hernia without obstruction or gangrene; G47.00 Insomnia, unspecified; Z20.828 Contact with and (suspected) exposure to other viral communicable diseases
CPT/HCPCS: 36415; 36430; 51702; 70450; 70551; 71045; 74176; 80048; 80061; 80076; 81003; 81015; 82085; 82150; 82274; 82533; 82550; 82553; 82607; 82746; 82805; 82947; 83540; 83605; 83615; 83690; 83735; 83880; 84145; 84439; 84443; 84484; 85025; 85044; 85610; 85652; 85730; 86140; 86850; 86900; 86901; 87040; 87086; 87088; 92526; 92610; 93005; 94640; 95816; 97110; 97161; 97530; 99285; C9113; J0456; J1650; J2543; J2920; J3010; J7030; J7050; J7512; P9016; U0002

== ENCOUNTER 2021-03-09 12:44 | Emergency (ER) | payer OTHER ==
--- OUTSIDE RECORDS SUMMARY | 2021-03-09 12:46 | XMS REPORT | Continuity of Care Document ---
:1935 Author Organization [facility] t Address [address] [place] [address] [address] [place] [address] Care Team Providers Name Role Phone Delicia LOPEZ Primary Care Physician Matt SINGH Attending Clinician Theodore Mendez DO Attending Clinician Darrius LOPEZ S Attending Clinician Gregoria LOPEZ Attending Clinician Cayden VERDUZCO Attending Clinician Rodney LOPEZ Attending Clinician Doctor Unassigned, Name Attending Clinician Unavailable Pob, Lab Main Attending Clinician Unavailable Gregoria LOPEZ Admitting Clinician Rodney LOPEZ Admitting Clinician Problems This patient has no known problems. Allergies, Adverse Reactions, Alerts Allergy Allergy Status Severity Reaction(s) Onset Inactive Treating Comm ents Source Name Type Date Date Clinician Sisi Sears Active Other (See [facility] ty to Comments) 03-21 she was [facility] adverse 00:00: told not st reaction 00 to take s to by PCP drug Codeine Propensi Active Other (See [facility] ty to Comments) 03-21 allergy [facility] i adverse 00:00: st reaction 00 s to drug Social History Social Habit Start Date Stop Date Quantity Comments Source History of tobacco Cigarette Smoker [facility] Cigarettes smoked 2018-04-18 2018-04-18 [facility] current (pack per 00:00:00 00:00:[address] day) - Reported Cigarette 2018-04-18 2018-04-18 [facility] pack-years 00:00:00 00:00:00 [facility] Alcohol intake 2018-04-18 2018-04-18 Current [facility] 00:00:00 00:00:00 non-drinker of [facility] alcohol (finding) Sex Ass[birth year] At [birth year] [facility] 00:00:00 00:00:00 [facility] Smoking Status Start Date Stop Date Source Current every day smoker 2018-04-18 00:00:00 [facility]olly[facility] peresg[facility] Medications Ordered Filled Start Stop Current Ordering Indication Dosage Frequency Signature Comments Components Source Medication Medication Date Date Medication? Clinician (SIG) Name Name HYDROcodone Yes 1{tbl} Take 1 [place] -acetaminop 7-17 tablet by Met lorna sosa (NORCO) 18:40: mouth. st 7.5-325 mg 21 per tablet gabapentin Yes [facility] (NEURONTIN) 7-16 [facility] 300 mg 00:00: st capsule 00 traMADol Yes [facility] (ULTRAM) 50 7-16 [facility] mg tablet 00:00: st 00 clorazepate Yes [place] n (TRANXENE) 6-30 [facility] 7.5 MG 00:00: st tablet 00 lisinopril Yes [facility] (PRINIVIL,Z 6-30 [facility] ESTRIL) 20 00:00: st mg tablet 00 pantoprazol Yes Nella n e 6-30 [facility] (PROTONIX) 00:00: st 40 MG EC 00 tablet tiZANidine Yes [facility] (ZANAFLEX) 6-19 [facility] 4 MG tablet 00:00: st 00 PROAIR HFA 2017- Yes [facility] 90 5-04 [facility] mcg/actuati 00:00: st on inhaler 00 metoprolol 2017- Yes [facility] succinate 5-04 [facility] XL 00:00: st (TOPROL-XL) 00 50 mg 24 hr tablet Procedures This patient has no known procedures. Plan of Care Planned Activity Planned Date Details Comments Source Future Scheduled 2021-05-03 INFLUENZA VACCINE [place] [facility] 00:00:00 [code = INFLUENZA VACCINE] Future Scheduled 1987 SHINGLES VACCINES (#1) Devan mccord [facility] Test 00:00:00 [code = SHINGLES VACCINES (#1)] Future Scheduled 1949 COVID-19 VACCINE (1) Lolly weir [facility] 00:00:00 [code = COVID-19 VACCINE (1)] Future Scheduled 1943 65+ PNEUMOCOCCAL [place] [facility] Test 00:00:00 VACCINE (1 of 2 - PPSV23) [code = 65+ PNEUMOCOCCAL VACCINE (1 of 2 - PPSV23)] Encounters Start End Encounter Admission Attending Care Care Encounter Source Date/Time Date/Time Type Type Clinicians Facility Department ID 2020-08-11 2020-08-11 Transition Fred Gutierrez [id number] 00:00:00 00:00:00 of Care Lissa Willson [id number] [place] [id number] 2020-08-02 2020-08-09 [facility] Andrea Danae J [facility] 1.2.84 [id number] [id number] 18:18:00 17:46:00 Encounter Zuly Rizo [id number] 0 Lorene Kinney [id number] [place] [id number] 2020-08-05 2020-08-05 Transition Fred Gutierrez [id number] 00:00:00 00:00:00 of Care Lissa Willson [id number] [place] [id number] 2020-08-01 2020-08-02 Emergency Cecilia Rodarte [facility] 1.2.840. [id number] 13:38:00 14:03:00 Kris Stevens [id number] [place] [id number] [place] [id number] 2020-07-21 2020-07-21 Orders Doctor CASAS [id number] 00:00:00 00:00:00 Only Unassigned, GISELA [id number] [place] [facility] [id number] 2019-12-20 2019-12-20 [employer] James Maki [facility] [id number] 14:10:01 14:34:05 Visit Lab Main [place] [id number] [place] [id number] [facility] [id number] [address] Results This patient has no known results.
--- NOTE | 2021-03-09 14:05 | RAD REPORT ---
EXAM DESCRIPTION: RAD - Chest Pa And Lat (2 Views) - 03/09/2021 2:00 pm CLINICAL HISTORY: COUGH Chest pain. COMPARISON: Chest Pa And Lat (2 Views) dated 01/28/2021; Chest Single View dated 06/30/2020; Chest Sin gle View dated 06/25/2020; Chest Single View dated 06/11/2020 FINDINGS: Emphysematous changes are present throughout the lungs. Small right pleural effusion is no shy, appearing chronic. The heart is normal in size. Moderate hiatal hernia is present. Thoracolumbar prominent kyphosis is noted caused by anterior wedge compression deformities.
[2021-03-09] MEDS ORDERED: METHYLPREDNISOLONE 125 MG INJ ONE (15:37)
[2021-03-09] MEDS ORDERED: AZITHROMYCIN 500 MG INJ IVPB ONE (15:37)
[2021-03-09] MEDS ORDERED: ALBUTEROL 2.5 MG/3 ML NEB SOL ONE (15:37)
[2021-03-09] MEDS ORDERED: CEFTRIAXONE/SWI 1gm 1 GM/10 ML SYR ONE (15:38)
[2021-03-09] MEDS ORDERED: IPRATROPIUM BROM 0.5MG/2.5ML ONE (15:38)
[2021-03-09] MEDS ORDERED: NA CHLORIDE 0.9% 100 ML ONE (15:38)
[2021-03-09] MEDS ORDERED: NA CHLORIDE 0.9% 250 ML ONE (15:38)
[2021-03-09 16:05] LABS: Basophils % 0.5 % (0-1.3); Lymphocytes % 12.1 % (15.3-44.8); MPV 8.4 fL (7.6-11.3); RBC Red Blood Cell Count 3.56 M/uL (3.86-4.86)
[2021-03-09 16:12] LABS: Protime INR 0.99
[2021-03-09 16:23] LABS: ALT/SGPT 12 U/L (12-78); AST/SGOT 16 U/L (15-37); Albumin 3.4 g/dL (3.4-5.0); Alkaline Phosphatase 66 U/L (45-117); BUN Blood Urea Nitrogen 13 mg/dL (7-18); Bicarbonate 38 mmol/L (21-32); Bilirubin Direct < 0.1 mg/dL (0-0.2); Bilirubin Total 0.3 mg/dL (0.2-1.0); Glucose Level 89 mg/dL (74-106); Magnesium 2.3 mg/dL (1.8-2.4); NT PRO-BNP 452 pg/mL (<450); Potassium 4.4 mmol/L (3.5-5.1); Protein, Total 7.6 g/dL (6.4-8.2); Sodium Level 140 mmol/L (136-145); Troponin (Emerg Dept Use Only) < 0.02 ng/mL (0.0-0.045)
--- NOTE | 2021-03-09 18:17 | EDPHYS ---
Physician Documentation [facility] Name: Allison Vickers Age: 85 yrs Sex: Female : 1935 Arrival Date: 03/09/2021 Time: 12:47 Bed 15 Private MD: ED Physician Chin Allan HPI: 03/09 14:46 This 85 yrs old Female presents to ER via Ambulatory with complaints of pm1 Fever, Congestion. 14:46 The patient or guardian reports cough, with productive sputum, that is green. Onset: pm1 The symptoms/episode began/occurred today, thickening of sputum started two days ago. Severity of symptoms: in the emergency department the symptoms have improved, shortness of breath is not present in the emergency department. Modifying factors: the symptoms are aggravated by nothing. Associated signs and symptoms: Pertinent positives: elevated temperature of 99.7, Pertinent negatives: chest pain, diarrhea, sore throat, vomiting. The patient has experienced similar episodes in the past, a few times, Patient is concerned that she might have pneumonia. The patient has not recently seen a physician. Historical: - Allergies: 13:07 Clindamycin; jd3 13:07 Codeine; jd3 - Home Meds: 13:07 ProAir HFA 90 mcg/actuation inhalation HFAA 2 puffs every 6 hours [Active]; Vitamin D jd3 Oral [Active]; gabapentin 300 mg Oral cap 1 cap 3 times per day [Active]; hydrocodone-acetaminophen 10-325 mg Oral tab 1 tab every 6 hours [Active]; carvedilol 12.5 mg Oral tab 1 tab 2 times per day [Active]; lisinopril 40 mg Oral tab 1 tab once daily [Active]; loratadine 10 mg Oral TbDL 1 tab once daily [Active]; furosemide 20 mg Oral tab 1 tab once daily [Active]; pantoprazole 40 mg Oral TbEC 1 tab once daily [Active]; prednisone Oral [Active]; - PMHx: 13:07 COPD; Hypertension; hiatal hernia; Chronic pain; chronic bronchitis; CHF; jd3 diverticulosis; carpal tunnel syndrome; Arthritis; ADD/ADHD; IRON DEFICIENCY ANEMIA; - Immunization history:: Adult Immunizations up to date. - Social history:: Smoking status: unknown. ROS: 14:46 Eyes: Negative for injury, pain, redness, and discharge, ENT: Negative for injury, pm1 pain, and discharge, Neck: Negative for injury, pain, and swelling, Cardiovascular: Negative for chest pain, palpitations, and edema. 14:46 Abdomen/GI: Negative for abdominal pain, nausea, vomiting, diarrhea, and constipation, Back: Negative for injury and pain, : Negative for injury, bleeding, discharge, and swelling, MS/Extremity: Negative for injury and deformity, Skin: Negative for injury, rash, and discoloration, Neuro: Negative for headache, weakness, numbness, tingling, and seizure. 14:46 Constitutional: Positive for fever, Negative for body aches, poor PO intake. 14:46 Respiratory: Positive for cough, with green sputum, Negative for shortness of breath, wheezing. Exam: 14:46 Constitutional: This is a well developed, well nourished patient who is awake, alert, pm1 and in no acute distress. Head/Face: Normocephalic, atraumatic. 14:46 Back: No spinal tenderness. No costovertebral tenderness. Full range of motion. Skin: Warm, dry with normal turgor. Normal color with no rashes, no lesions, and no evidence of cellulitis. MS/ Extremity: Pulses equal, no cyanosis. Neurovascular intact. Full, normal range of motion. 14:46 Eyes: Exam is negative for acute changes, Extraocular movements: intact throughout, Conjunctiva: normal, Sclera: no acute changes, icterus, is not appreciated. 14:46 ENT: Mouth: Lips: normal, Oral mucosa: normal, pink and intact, moist. 14:46 Cardiovascular: Rate: normal, Rhythm: regular, Pulses: no pulse deficits are appreciated, Edema: is not appreciated. 14:46 Respiratory: Exam negative for acute changes, respiratory distress, shortness of breath, Breath sounds: are clear throughout. 14:46 Abdomen/GI: Inspection: abdomen appears normal, Palpation: abdomen is soft and non-tender, in all quadrants. 14:46 Neuro: Exam negative for acute changes, Orientation: is normal, Motor: is normal, moves all fours. Vital Signs: 13:07 BP 153 / 72; Pulse 92; Resp 17 S; Temp 98.3(O); Pulse Ox 97% on 3 lpm NC; Weight 40.82 jd3 kg (R); Height 5 ft. 4 in. (162.56 cm) (R); Pain 6/10; 15:00 BP 143 / 74; Pulse 81; Resp 16; Pulse Ox 100% ; bp 16:00 BP 139 / 52; Pulse 86; Resp 15; Pulse Ox 100% ; bp 17:00 BP 138 / 66; Pulse 89; Resp 16; Pulse Ox 98% ; bp 18:12 BP 107 / 50; Pulse 92; Resp 16; Pulse Ox 100% ; bp 13:07 Body Mass Index 15.45 (40.82 kg, 162.56 cm) jd3 MDM: 14:28 Patient medically screened. pm1 18:16 Data reviewed: vital signs. Data interpreted: Pulse oximetry: on room air is 100 %. pm1 Interpretation: normal. Counseling: I had a detailed discussion with the patient and/or guardian regarding: the historical points, exam findings, and any diagnostic results supporting the discharge/admit diagnosis, lab results, radiology results, the need for outpatient follow up, to return to the emergency department if symptoms worsen or persist or if there are any questions or concerns that arise at home. 03/09 14:41 Order name: Basic Metabolic Panel; Complete Time: 16:39 pm1 03/09 14:41 Order name: CBC with Diff; Complete Time: 16:21 pm1 03/09 14:41 Order name: LFT's; Complete Time: 16:39 pm1 03/09 14:41 Order name: Magnesium; Complete Time: 16:39 pm1 03/09 14:41 Order name: NT PRO-BNP; Complete Time: 16:39 pm1 03/09 14:41 Order name: PT-INR; Complete Time: 16:39 pm1 03/09 13:08 Order name: Chest Pa And Lat (2 Views) XRAY; Complete Time: 14:27 kb 03/09 14:41 Order name: Troponin (emerg Dept Use Only); Complete Time: 16:39 pm1 03/09 14:41 Order name: Flu; Complete Time: 18:16 pm1 03/09 17:50 Order name: SARS-COV-2 RT PCR; Complete Time: 18:16 EDMS 03/09 14:41 Order name: EKG; Complete Time: 14:42 pm1 03/09 14:41 Order name: Cardiac monitoring; Complete Time: 16:39 pm1 03/09 14:41 Order name: EKG - Nurse/Tech; Complete Time: 17:24 pm1 03/09 14:41 Order name: IV Saline Lock; Complete Time: 16:39 pm1 03/09 14:41 Order name: Labs collected and sent; Complete Time: 16:39 pm1 03/09 14:41 Order name: O2 Per Protocol; Complete Time: 16:39 pm1 03/09 14:41 Order name: O2 Sat Monitoring; Complete Time: 16:39 pm1 Administered Medications: 15:00 Drug: Albuterol - atroVENT (ipratropium) (3:1) (2.5 mg - 0.5 mg) 3 ml Route: Nebulizer; bp 17:23 Follow up: Response: Marked relief of symptoms bp 15:45 Drug: SOLU-Medrol (methylPrednisoLONE) 125 mg Route: IVP; Site: right forearm; bp 17:23 Follow up: Response: Marked relief of symptoms bp 15:45 Drug: Rocephin (cefTRIAXone) 1 grams Route: IV; Rate: calculated rate; Site: right bp forearm; 17:23 Follow up: IV Status: Completed infusion; IV Intake: 50ml bp 15:45 Drug: AZITHromycin 500 mg Route: IVPB; Infused Over: 1 hrs; Site: right forearm; bp 17:23 Follow up: IV Status: Completed infusion; IV Intake: 250ml bp Disposition: 03/10 07:05 Co-signature as Attending Physician, hCin Allan MD. rn Disposition: 03/09/21 18:17 Discharged to Home. Impression: Chronic obstructive pulmonary disease with (acute) exacerbation. - Condition is Stable. - Discharge Instructions: Chronic Obstructive Pulmonary Disease Exacerbation. - Prescriptions for Prednisone 20 mg Oral Tablet - take 3 tablet by ORAL route once daily for 5 days; 15 tablet. Zithromax Z- Davis 250 mg Oral Tablet - take 1 tablet by ORAL route as directed for 5 days Day 1 - take two (2) tablets one time. Day 2, 3, 4 , 5 take one (1) tablet once daily.; 6 tablet. - Medication Reconciliation Form, Thank You Letter, Antibiotic Education, Prescription Opioid Use form. - Follow up: Emergency Department; When: As needed; Reason: Worsening of condition. Follow up: Private Physician; When: 2 - 3 days; Reason: Recheck today's complaints, Continuance of care, Re-evaluation by your physician. - Problem is new. - Symptoms have improved. Signatures: Dispatcher [employer] EDNY Chin Allan MD MD rn Marinas, Patrick, JUKEBOX OPERATOR JUKEBOX OPERATOR pm1 Shaheen Mayes RN RN jAmado Martins RN RN bp Porter Nathanael ad5 Corrections: (The following items were deleted from the chart) 06 14:45 14:42 Chest Single View+RAD.RAD.BRZ ordered. EDNY EDNY 16:29 14:42 CORONAVIRUS+MR.LAB.BRZ ordered. [facility] EDNY 19:20 18:17 03/09/2021 18:17 Discharged to Home. Impression: Chronic obstructive pulmonary ad5 disease with (acute) exacerbation. Condition is Stable. Forms are Medication Reconciliation Form, Thank You Letter, Antibiotic Education, Prescription Opioid Use. Follow up: Emergency Department; When: As needed; Reason: Worsening of condition. Follow up: Private Physician; When: 2 - 3 days; Reason: Recheck today's complaints, Continuance of care, Re-evaluation by your physician. Problem is new. Symptoms have improved. pm1
--- NOTE | 2021-03-09 18:17 | ER ---
Nurse's Notes [facility] Name: Allison Vickers Age: 85 yrs Sex: Female : 1935 Arrival Date: 03/09/2021 Time: 12:47 Bed 15 Private MD: Diagnosis: Chronic obstructive pulmonary disease with (acute) exacerbation Presentation: 03/09 13:00 Chief complaint: Patient states: "I have a history of pneumonia and i was concerned j that I have it again because I woke up with coughing up this nasty stuff and I was running a temp of 99.7.". Coronavirus screen: At this time, the client does not indicate any symptoms associated with coronavirus-19. Ebola Screen: Patient negative for fever greater than or equal to 101.5 degrees Fahrenheit, and additional compatible Ebola Virus Disease symptoms. Initial Sepsis Screen: Does the patient meet any 2 criteria? No. Patient's initial sepsis screen is negative. Does the patient have a suspected source of infection? No. Patient's initial sepsis screen is negative. Risk Assessment: Do you want to hurt yourself or someone else? Patient reports no desire to harm self or others. Onset of symptoms was March 09, 2021. 13:00 Method Of Arrival: Ambulatory jd3 13:00 Acuity: JESUS 2 jd3 Triage Assessment: 14:00 General: Appears in no apparent distress. uncomfortable, Behavior is cooperative, bp appropriate for age. 14:00 Pain: Denies pain. EENT: No deficits noted. EENT: Nares with drainage noted. Neuro: bp Level of Consciousness is obeys commands, Oriented to. Neuro: Level of Consciousness is awake, alert, obeys commands, Oriented to Appropriate for age Moves all extremities. Full function. Cardiovascular: No deficits noted. Respiratory: Breath sounds with rales Breath sounds with rhonchi. GI: No signs and/or symptoms were reported involving the gastrointestinal system. : No signs and/or symptoms were reported regarding the genitourinary system. Derm: No deficits noted. Musculoskeletal: No deficits noted. Circulation, motion, and sensation intact. Range of motion: intact in all extremities. Historical: - Allergies: 13:07 Clindamycin; jd3 13:07 Codeine; jd3 - Home Meds: 13:07 ProAir HFA 90 mcg/actuation inhalation HFAA 2 puffs every 6 hours [Active]; Vitamin D jd3 Oral [Active]; gabapentin 300 mg Oral cap 1 cap 3 times per day [Active]; hydrocodone-acetaminophen 10-325 mg Oral tab 1 tab every 6 hours [Active]; carvedilol 12.5 mg Oral tab 1 tab 2 times per day [Active]; lisinopril 40 mg Oral tab 1 tab once daily [Active]; loratadine 10 mg Oral TbDL 1 tab once daily [Active]; furosemide 20 mg Oral tab 1 tab once daily [Active]; pantoprazole 40 mg Oral TbEC 1 tab once daily [Active]; prednisone Oral [Active]; - PMHx: 13:07 COPD; Hypertension; hiatal hernia; Chronic pain; chronic bronchitis; CHF; jd3 diverticulosis; carpal tunnel syndrome; Arthritis; ADD/ADHD; IRON DEFICIENCY ANEMIA; - Immunization history:: Adult Immunizations up to date. - Social history:: Smoking status: unknown. Screenin:10 Abuse screen: Denies threats or abuse. Denies injuries from another. Nutritional bp screening: No deficits noted. Tuberculosis screening: No symptoms or risk factors identified. Fall Risk None identified. Assessment: 13:10 General: SEE TRIAGE NOTE. Neuro: Level of Consciousness is awake, alert, obeys bp commands, Oriented to Appropriate for age. 15:00 Reassessment: No changes from previously documented assessment. Patient and/or family bp updated on plan of care and expected duration. Pain level reassessed. Patient is alert, oriented x 3, equal unlabored respirations, skin warm/dry/pink. 17:00 Reassessment: Patient states feeling better. Cardiovascular: Rhythm is sinus rhythm. bp Cardiovascular: Patient's skin is warm and dry. Respiratory: Airway is patent Respiratory effort is even, labored, the patient has mild shortness of breath. Respiratory: Breath sounds with wheezes bilaterally. 18:12 Reassessment: No changes from previously documented assessment. Patient and/or family bp updated on plan of care and expected duration. Pain level reassessed. Patient is alert, oriented x 3, equal unlabored respirations, skin warm/dry/pink. ALL CURRENT ORDERS COMPLETED, DISPO PENDING. 18:49 Reassessment: D/C ON HOLD PENDING RT C/S FOR HOME 02 BOTTLE. bp 19:10 Reassessment: Patient appears in no apparent distress at this time. Patient and/or ad5 family updated on plan of care and expected duration. Pain level reassessed. Patient is alert, oriented x 3, equal unlabored respirations, skin warm/dry/pink. Vital Signs: 13:07 BP 153 / 72; Pulse 92; Resp 17 S; Temp 98.3(O); Pulse Ox 97% on 3 lpm NC; Weight 40.82 jd3 kg (R); Height 5 ft. 4 in. (162.56 cm) (R); Pain 6/10; 15:00 BP 143 / 74; Pulse 81; Resp 16; Pulse Ox 100% ; bp 16:00 BP 139 / 52; Pulse 86; Resp 15; Pulse Ox 100% ; bp 17:00 BP 138 / 66; Pulse 89; Resp 16; Pulse Ox 98% ; bp 18:12 BP 107 / 50; Pulse 92; Resp 16; Pulse Ox 100% ; bp 13:07 Body Mass Index 15.45 (40.82 kg, 162.56 cm) jd3 ED Course: 12:47 Patient arrived in ED. as 13:01 Triage completed. jd3 13:08 Arm band placed on. jd3 13:10 Patient has correct armband on for positive identification. Bed in low position. Call bp light in reach. Side rails up X2. 13:30 Inserted saline lock: 22 gauge in right forearm, using aseptic technique. Blood bp collected. 14:00 Chest Pa And Lat (2 Views) XRAY In Process Unspecified. EDMS 14:23 Amado Steinberg, SAMANTHA is Primary Nurse. bp 14:26 Norm Tavarez NP is PHCP. pm1 14:26 Chin Allan MD is Attending Physician. pm1 19:15 No provider procedures requiring assistance completed. IV discontinued, intact, ad5 bleeding controlled, No redness/swelling at site. Pressure dressing applied. Administered Medications: 15:00 Drug: Albuterol - atroVENT (ipratropium) (3:1) (2.5 mg - 0.5 mg) 3 ml Route: Nebulizer; bp 17:23 Follow up: Response: Marked relief of symptoms bp 15:45 Drug: SOLU-Medrol (methylPrednisoLONE) 125 mg Route: IVP; Site: right forearm; bp 17:23 Follow up: Response: Marked relief of symptoms bp 15:45 Drug: Rocephin (cefTRIAXone) 1 grams Route: IV; Rate: calculated rate; Site: right bp forearm; 17:23 Follow up: IV Status: Completed infusion; IV Intake: 50ml bp 15:45 Drug: AZITHromycin 500 mg Route: IVPB; Infused Over: 1 hrs; Site: right forearm; bp 17:23 Follow up: IV Status: Completed infusion; IV Intake: 250ml bp Intake: 17:23 IV: 50ml; Total: 50ml. bp 17:23 IV: 250ml; Total: 300ml. bp Outcome: 18:17 Discharge ordered by MD. pm1 19:17 Discharged to home via wheelchair, with family. ad5 19:17 Condition: stable 19:17 Discharge instructions given to patient, family, Instructed on discharge instructions, follow up and referral plans. medication usage, Demonstrated understanding of instructions, follow-up care, medications. 19:20 Patient left the ED. ad5 Signatures: Dispatcher [employer] EDMS Denisse Ley Patrick, BETHANY VAUDEVILLE ACTOR pm1 Shaheen Mayes RN RN jAmado Martins RN RN bp Nathanael Porter ad5 Corrections: (The following items were deleted from the chart) 14:48 14:00 Inserted saline lock: 22 gauge in right forearm, using aseptic technique. Blood bp collected. Missed attempt(s): 20 gauge bp 14:58 14:00 Respiratory: Stridor noted bp bp 17:18 14:59 Reassessment: bp bp 18:13 18:12 BP 196 / 76; Pulse 61bpm; Resp 16bpm; Pulse Ox 100%; bp bp
[2021-03-09 19:41] VITALS: TEMP 98.3
[2021-03-09 19:48] VITALS: BP 107/50; O2SAT 100
--- NOTE | 2021-03-11 07:29 | EKG ---
Test Date: 2021-03-09 Test Time: 16:59:00 Corridor Redevelopment Manager: BP MEASUREMENT RESULTS: Intervals: Rate: 89 CA: 132 QRSD: 70 QT: 320 QTc: 389 [place]: P: 79 CA: 132 QRS: 60 T: 67 INTERPRETIVE STATEMENTS: Normal sinus rhythm Anterior infarct, age undetermined Abnormal ECG Compared to ECG 06/25/2020 15:46:52 Myocardial infarct finding now present Electronically Signed On 03-11-21 07:26:48 CDT by Randall Brown
== END 2021-03-09 19:20 | disposition home or self-care (01) ==
LOC: ER 12:44
DX: J44.1 Chronic obstructive pulmonary disease with (acute) exacerbation (principal); Z20.822 Contact with and (suspected) exposure to COVID-19; I11.0 Hypertensive heart disease with heart failure; I50.9 Heart failure, unspecified; K44.9 Diaphragmatic hernia without obstruction or gangrene; G89.29 Other chronic pain; M19.90 Unspecified osteoarthritis, unspecified site; F90.9 Attention-deficit hyperactivity disorder, unspecified type
CPT/HCPCS: 96365; 96368; 93005; 85025; 80048; 36415; 83735; 85610; 80076; 84484; 83880; 87804 ×2; 71046; 96375; 99285; 96366; U0003; J0456; J0696; J7050; J2930

== ENCOUNTER 2021-04-27 19:53 | Emergency (ER) | payer OTHER ==
[2021-04-27 20:32] LABS: Urine Blood Negative (Negative); Urine Glucose Negative (Negative); Urine Protein Negative (Negative); Urine Specific Gravity 1.015 (1.005-1.030)
[2021-04-27 20:53] LABS: Urine Bacteria <20 /HPF (<20); Urine RBC <5 /HPF (NONE SEEN)
--- NOTE | 2021-04-27 21:15 | RAD REPORT ---
EXAM DESCRIPTION: RAD - Chest Single View - 04/27/2021 9:03 pm CLINICAL HISTORY: Cough;COPD COMPARISON: March 09 TECHNIQUE: AP portable chest image was obtained 04/27/2021 9:03 pm . FINDINGS: Fibrotic lung pattern is accentuated by shallow inspiration. No new mass or consolidations seen. Mediastinum distorted by rotation. Hiatal hernia is present. Heart and vasculature are normal. No measurable pleural effusion and no pneumothorax. No acute bony abnormality seen. No acute aortic findings suspected. IMPRESSION: No acute cardiopulmonary process. No significant change from comparison study.
[2021-04-27] MEDS ORDERED: FENTANYL CITR 100 MCG/2 ML ONE (21:19)
[2021-04-27] MEDS ORDERED: METHYLPREDNISOLONE 125 MG INJ ONE (21:20)
[2021-04-27] MEDS ORDERED: LEVALBUTEROL 1.25 MG/3 ML NEB ONE (21:20)
[2021-04-27] MEDS ORDERED: ONDANSETRON 4 MG/2 ML VIAL ONE (21:20)
[2021-04-27] MEDS ORDERED: IPRATROPIUM BROM 0.5MG/2.5ML ONE (21:21)
[2021-04-27] MEDS ORDERED: FENTANYL 25 MCG/PATCH TD ONE (21:42)
--- NOTE | 2021-04-27 21:46 | RAD REPORT ---
EXAM DESCRIPTION: CT - Thoracic Spine W/o Cont - 04/27/2021 9:19 pm CLINICAL HISTORY: Back pain, history of compression fracture COMPARISON: None. TECHNIQUE: Axial 3 mm thick images of the thoracic spine were obtained with sagittal and coronal rec onstruction images generated and reviewed. All CT scans are performed using dose optimization technique as appropriate and may include automated exposure control or mA/KV adjustment according to patient size. FINDINGS: 50% wedge compression deformity is present in the T12 body. Posterior wall height is prese rved with no encroachment of the central canal. Approximately 30% compression fracture deformity is seen in the T11 body. Posterior wall height is pr eserved. There does appear to be acute fracture line along superior endplate favoring this to be acut e or subacute in age. Partial compression along the superior endplate T8 body is present age undetermined. Remaining thorac ic vertebrae are normal in height. The T12 compression causes accentuated thoracolumbar junction kyph osis. No significant disc space narrowing. No pathologic bone process identified. No paraspinal mass or hematoma. Central canal detail is inherently limited on CT imaging. IMPRESSION: Approximately 30% compression fracture deformity T11 body suspected to be acute or subac neema in age. Posterior wall height is preserved with no encroachment into the central canal. Wedge compression fracture T12 with accentuated thoracolumbar kyphosis. This is believed to be chroni c. Minimal height loss superior endplate T8 age undetermined.
--- NOTE | 2021-04-27 21:48 | RAD REPORT ---
EXAM DESCRIPTION: CT - Spine Lumbar Wo Con - 04/27/2021 9:19 pm CLINICAL HISTORY: Deformity;Pain COMPARISON: None. TECHNIQUE: Thin section axial imaging of the lumbar spine was performed. Sagittal and coronal recon struction images were generated and reviewed. All CT scans are performed using dose optimization technique as appropriate and may include automated exposure control or mA/KV adjustment according to patient size. FINDINGS: 50% wedge compression deformity of T12 with accentuated thoracolumbar junction kyphosis. W all height is preserved posteriorly with no canal encroachment. This is a chronic pattern. Partial co mpression superior endplate L1 body also a stable finding. No canal encroachment. L2-L5 normal in hei ght. Bones are osteopenic. No pathologic bone process. Central canal detail is inherently limited. Disc bulge changes are present but no significant canal o r foramen stenoses identifiable. SI joint degenerative changes are present. No sacral ala fractures confirmed. IMPRESSION: Chronic compression fracture deformities T12 and L1. No acute finding confirmed.
[2021-04-27 22:30] LABS: Urine Blood Negative (Negative); Urine Glucose Negative (Negative); Urine Protein Trace (Negative); Urine pH 5.5 (5.0-7.0)
[2021-04-27 22:47] LABS: Arterial Blood Carboxyhemoglob 1.5 % (0-1.5); Blood Gas Oxyhemoglobin 89.1 % (94-97); Blood O2 Saturation 91.6 % (92-98.5)
[2021-04-27 23:52] LABS: Absolute Lymphocytes (CBC) 0.7 K/uL (0.7-4.9); Basophils % 0.5 % (0-1.3); Hematocrit 34.5 % (36.0-45.0); Lymphocytes % 4.1 % (15.3-44.8); MPV 7.1 fL (7.6-11.3); Protime INR 0.94; RBC Red Blood Cell Count 3.87 M/uL (3.86-4.86)
[2021-04-28 00:08] LABS: ALT/SGPT 18 U/L (12-78); AST/SGOT 13 U/L (15-37); Albumin 3.3 g/dL (3.4-5.0); Alkaline Phosphatase 65 U/L (45-117); BUN Blood Urea Nitrogen 19 mg/dL (7-18); Bilirubin Direct 0.2 mg/dL (0-0.2); Bilirubin Total 0.6 mg/dL (0.2-1.0); Glucose Level 122 mg/dL (74-106); Magnesium 1.9 mg/dL (1.8-2.4); NT PRO-BNP 1650 pg/mL (<450); Potassium 3.6 mmol/L (3.5-5.1); Protein, Total 7.3 g/dL (6.4-8.2); Sodium Level 138 mmol/L (136-145); Troponin (Emerg Dept Use Only) < 0.02 ng/mL (0.0-0.045)
[2021-04-28 00:12] LABS: Bicarbonate 43 mmol/L (21-32)
[2021-04-28] MEDS ORDERED: AMOX/K CLAV 875 MG TAB ONE (01:41)
[2021-04-28 02:23] LABS: Blood Morphology Comment NOTED (NOT SEEN); Platelet Estimate ADEQ; Polychromasia SLIGHT
--- NOTE | 2021-04-28 07:59 | EKG ---
Test Date: 2021-04-27 Test Time: 21:51:34 Entertainment Lawyer: CATALINO MEASUREMENT RESULTS: Intervals: Rate: 101 ND: 124 QRSD: 66 QT: 310 QTc: 401 [place]: P: 87 ND: 124 QRS: 51 T: 62 INTERPRETIVE STATEMENTS: Sinus tachycardia Possible Left atrial enlargement Borderline ECG Compared to ECG 03/09/2021 16:59:00 Sinus rhythm no longer present Myocardial infarct finding no longer present Electronically Signed On 04-28-21 07:57:37 CDT by Randall Brown
--- NOTE | 2021-04-28 17:47 | ER ---
Nurse's Notes [facility] Name: Allison Vickers Age: 86 yrs Sex: Female : 1935 Arrival Date: 04/27/2021 Time: 19:57 Bed 5 Private MD: Diagnosis: COPD/ Chronic obstructive pulmonary disease, unspecified;Low back pain-and thoracic, kyphiosis;Fracture of thoracic vertebra-T11, 30% compression fracture Presentation: 04/27 20:08 Chief complaint: Patient states: back pain, SOB, chronic back pain, COPD pt wears 3L NC bs2 at home. Coronavirus screen: Client denies travel out of the [place] in the last 14 days. Ebola Screen: No symptoms or risks identified at this time. Initial Sepsis Screen: Does the patient meet any 2 criteria? No. Patient's initial sepsis screen is negative. Does the patient have a suspected source of infection? No. Patient's initial sepsis screen is negative. Risk Assessment: Do you want to hurt yourself or someone else? Patient reports no desire to harm self or others. Onset of symptoms was April 27, 2021. 20:08 Method Of Arrival: EMS: [facility] bs2 20:08 Acuity: JESUS 3 bs2 20:10 Care prior to arrival: Medication(s) given: 40 mg Lasix, A\T\A treatment IV initiated. 20 bs2 GA, in the right forearm. Triage Assessment: 20:10 General: Appears uncomfortable, slender, Behavior is calm, cooperative, appropriate for bs2 age. Pain: Complains of pain in thoracic area Pain currently is 10 out of 10 on a pain scale. Musculoskeletal: Circulation, motion, and sensation intact. Historical: - Allergies: 20:10 Clindamycin; bs2 20:10 Codeine; bs2 - Home Meds: 20:10 carvedilol 12.5 mg Oral tab 1 tab 2 times per day [Active]; furosemide 20 mg Oral tab 1 bs2 tab once daily [Active]; gabapentin 300 mg Oral cap 1 cap 3 times per day [Active]; hydrocodone-acetaminophen 10-325 mg Oral tab 1 tab every 6 hours [Active]; lisinopril 40 mg Oral tab 1 tab once daily [Active]; loratadine 10 mg Oral TbDL 1 tab once daily [Active]; pantoprazole 40 mg Oral TbEC 1 tab once daily [Active]; Prednisone Oral [Active]; ProAir HFA 90 mcg/actuation inhalation HFAA 2 puffs every 6 hours [Active]; Vitamin D Oral [Active]; - PMHx: 20:10 ADD/ADHD; Arthritis; carpal tunnel syndrome; chronic bronchitis; CHF; Chronic pain; bs2 COPD; diverticulosis; hiatal hernia; Hypertension; IRON DEFICIENCY ANEMIA; - PSHx: 20:10 Ligation of fallopian tube; Appendectomy; back; bs2 - Immunization history:: Adult Immunizations up to date, Client reports receiving the 2nd dose of the Covid vaccine, Flu vaccine is up to date. - Social history:: Smoking status: Patient/guardian denies using tobacco, the patient reports quitting approximately 3 years ago. Assessment: 04/28 01:35 Reassessment: Patient and/or family updated on plan of care and expected duration. Pain ea level reassessed. Patient is alert, oriented x 3, equal unlabored respirations, skin warm/dry/pink. Discharge instruction given to patient verbalized the understanding of instruction. Pt left ED via wheelchair per ED staff. Vital Signs: 04/27 20:08 BP 160 / 77 LA Sitting (auto/); Pulse 105 MON; Resp 20 S; Temp 98.9(O); Pulse Ox 98% on bs2 3 lpm NC; Weight 43.09 kg (R); Height 5 ft. 4 in. (162.56 cm) (R); Pain 10/10; 20:08 Body Mass Index 16.31 (43.09 kg, 162.56 cm) bs2 ED Course: 19:57 Patient arrived in ED. cf2 20:08 Shayla Mckeon, RN is Primary Nurse. bs2 20:10 Triage completed. bs2 20:10 Arm band placed on right wrist. bs2 20:26 Terrance Howe MD is Attending Physician. raven 21:03 XRAY Chest (1 view) In Process Unspecified. EDMS 21:18 CT Thoracic Spine Wo Cont In Process Unspecified. EDMS 21:19 CT Lumbar Spine Wo Con In Process Unspecified. EDMS 21:25 Basic Metabolic Panel Sent. bs2 21:25 CBC with Diff Sent. bs2 21:25 LFT's Sent. bs2 21:25 Magnesium Sent. bs2 21:25 NT PRO-BNP Sent. bs2 21:25 PT-INR Sent. bs2 21:25 Troponin (emerg Dept Use Only) Sent. bs2 04/28 00:02 Manual Differential Sent. bs2 00:02 Troponin (emerg Dept Use Only) Sent. bs2 00:02 NT PRO-BNP Sent. bs2 00:03 Magnesium Sent. bs2 00:03 LFT's Sent. bs2 00:03 Basic Metabolic Panel Sent. bs2 00:51 Jalen Curran MD is Referral Physician. raven Administered Medications: 04/27 20:45 Drug: SOLU-Medrol (methylPrednisoLONE) 125 mg Route: IVP; Site: right forearm; bs2 04/28 00:02 Follow up: Response: No adverse reaction bs2 04/27 21:00 Drug: fentaNYL (PF) 25 mcg Route: IVP; Site: right forearm; bs2 04/28 00:02 Follow up: Response: No adverse reaction; Pain is unchanged, physician notified bs2 04/27 21:00 Drug: Zofran (Ondansetron) 4 mg Route: IVP; Site: right forearm; bs2 04/28 00:02 Follow up: Response: No adverse reaction bs2 04/27 21:24 CANCELLED (dosage change): fentaNYL Patch (50 mcg/hr) 1 patches Transdermal once; RASS bs2 on ADMIN: Combtv4, Very Agttd3, Agttd2, Rstlss1, AlertClm0, Drwsy-1, Lt Sdtn-2, Mod Sdtn-3, Dp Sdtn-4, UnArsble-5 22:00 Drug: Xopenex (levalbuterol) 2.5 mg Route: Inhalation; bs2 22:00 Drug: AtroVENT (ipratropium) Aerosol 0.5 mg Route: Inhalation; bs2 22:00 Drug: fentaNYL Patch (25 mcg/hr) 1 patches Route: Transdermal; Site: affected area; bs2 04/28 00:02 Follow up: Response: No adverse reaction; Pain is unchanged, physician notified bs2 Outcome: 00:52 Discharge ordered by MD. carbajal 01:36 Patient left the ED. mw2 Signatures: Dispatcher [employer] EDTerrance Bennett MD MD cha Antunez, Elena RN RN ea Loretta Cabezas mw2 Jesica Stapleton cf2 Shayla Mckeon, RN RN bs2
--- NOTE | 2021-04-28 17:47 | EDPHYS ---
Physician Documentation [facility] Name: Allison Vickers Age: 86 yrs Sex: Female : 1935 Arrival Date: 04/27/2021 Time: 19:57 Bed 5 Private MD: FERNANDO Physician Terrance Howe HPI: 04/27 20:52 This 86 yrs old Female presents to ER via EMS with complaints of Back Pain. raven 20:52 The patient presents with pain that is acute, with no known mechanism of injury. The raven symptoms are located in the thoracic area and lumbar area. Onset: The symptoms/episode began/occurred 1 day(s) ago. The pain does not radiate. The problem was sustained from unknown cause. Historical: - Allergies: 20:10 Clindamycin; bs2 20:10 Codeine; bs2 - Home Meds: 20:10 carvedilol 12.5 mg Oral tab 1 tab 2 times per day [Active]; furosemide 20 mg Oral tab 1 bs2 tab once daily [Active]; gabapentin 300 mg Oral cap 1 cap 3 times per day [Active]; hydrocodone-acetaminophen 10-325 mg Oral tab 1 tab every 6 hours [Active]; lisinopril 40 mg Oral tab 1 tab once daily [Active]; loratadine 10 mg Oral TbDL 1 tab once daily [Active]; pantoprazole 40 mg Oral TbEC 1 tab once daily [Active]; Prednisone Oral [Active]; ProAir HFA 90 mcg/actuation inhalation HFAA 2 puffs every 6 hours [Active]; Vitamin D Oral [Active]; - PMHx: 20:10 ADD/ADHD; Arthritis; carpal tunnel syndrome; chronic bronchitis; CHF; Chronic pain; bs2 COPD; diverticulosis; hiatal hernia; Hypertension; IRON DEFICIENCY ANEMIA; - PSHx: 20:10 Ligation of fallopian tube; Appendectomy; back; bs2 - Immunization history:: Adult Immunizations up to date, Client reports receiving the 2nd dose of the Covid vaccine, Flu vaccine is up to date. - Social history:: Smoking status: Patient/guardian denies using tobacco, the patient reports quitting approximately 3 years ago. ROS: 20:53 Constitutional: Negative for fever, chills, and weight loss, Eyes: Negative for injury, raven pain, redness, and discharge, ENT: Negative for injury, pain, and discharge, Neck: Negative for injury, pain, and swelling, Cardiovascular: Negative for chest pain, palpitations, and edema, Abdomen/GI: Negative for abdominal pain, nausea, vomiting, diarrhea, and constipation, : Negative for injury, bleeding, discharge, and swelling, MS/Extremity: Negative for injury and deformity, Skin: Negative for injury, rash, and discoloration, Neuro: Negative for headache, weakness, numbness, tingling, and seizure, Psych: Negative for depression, anxiety, suicide ideation, homicidal ideation, and hallucinations, Allergy/Immunology: Negative for hives, rash, and allergies, Endocrine: Negative for neck swelling, polydipsia, polyuria, polyphagia, and marked weight changes, Hematologic/Lymphatic: Negative for swollen nodes, abnormal bleeding, and unusual bruising. 20:53 Respiratory: Positive for cough, shortness of breath. 20:53 Back: Positive for decreased range of motion, pain at rest, pain with movement, of the thoracic area and lumbar area. Exam: 20:53 Constitutional: This is a well developed, well nourished patient who is awake, alert, raven and in no acute distress. Head/Face: Normocephalic, atraumatic. Eyes: Pupils equal round and reactive to light, extra-ocular motions intact. Lids and lashes normal. Conjunctiva and sclera are non-icteric and not injected. Cornea within normal limits. Periorbital areas with no swelling, redness, or edema. ENT: Nares patent. No nasal discharge, no septal abnormalities noted. Tympanic membranes are normal and external auditory canals are clear. Oropharynx with no redness, swelling, or masses, exudates, or evidence of obstruction, uvula midline. Mucous membranes moist. Neck: Trachea midline, no thyromegaly or masses palpated, and no cervical lymphadenopathy. Supple, full range of motion without nuchal rigidity, or vertebral point tenderness. No Meningismus. Chest/axilla: Normal chest wall appearance and motion. Nontender with no deformity. No lesions are appreciated. Abdomen/GI: Soft, non-tender, with normal bowel sounds. No distension or tympany. No guarding or rebound. No evidence of tenderness throughout. Back: No spinal tenderness. No costovertebral tenderness. Full range of motion. Female : Normal external genitalia. Skin: Warm, dry with normal turgor. Normal color with no rashes, no lesions, and no evidence of cellulitis. MS/ Extremity: Pulses equal, no cyanosis. Neurovascular intact. Full, normal range of motion. Neuro: Awake and alert, GCS 15, oriented to person, place, time, and situation. Cranial nerves II-XII grossly intact. Motor strength 5/5 in all extremities. Sensory grossly intact. Cerebellar exam normal. Normal gait. Psych: Awake, alert, with orientation to person, place and time. Behavior, mood, and affect are within normal limits. 20:53 Cardiovascular: Rate: tachycardic, actual rate is 105 bpm, Rhythm: regular, Pulses: Pulses are 4+ in bilateral radial, brachial, femoral, popliteal, posterior tibial and and dorsalis pedis arteries.. Heart sounds: normal, Edema: is not appreciated, JVD: is not appreciated. 21:57 ECG was reviewed by the Attending Physician. raven Vital Signs: 20:08 BP 160 / 77 LA Sitting (auto/); Pulse 105 MON; Resp 20 S; Temp 98.9(O); Pulse Ox 98% on bs2 3 lpm NC; Weight 43.09 kg (R); Height 5 ft. 4 in. (162.56 cm) (R); Pain 10/10; 20:08 Body Mass Index 16.31 (43.09 kg, 162.56 cm) bs2 MDM: 20:27 Patient medically screened. raven 20:54 Antibiotic administration: Not indicated. Differential diagnosis: Chronic Obstructive raven Pulmonary Disease chronic back pain, Osteoarthritis Osteoporosis Unstable Angina. The patient's Wells Deep Vein Thrombosis Score was calculated as follows: Total Score: 0-2 Pts- Low Risk. The patient's pulmonary embolism risk score was calculated as follows: Total Score: 0-2 points. This patient was found to be at low risk for a pulmonary embolism by using the Well's assessment criteria. Immunization status: Pneumococcal vaccine: Influenza vaccine: Data reviewed: vital signs, nurses notes, EMS record, lab test result(s), EKG, radiologic studies, CT scan, plain films. Data interpreted: monitor worker: rate is 105 beats/min, rhythm is regular, Pulse oximetry: on room air is 98 %. Test interpretation: by ED physician or midlevel provider: ECG, plain radiologic studies. Counseling: I had a detailed discussion with the patient and/or guardian regarding: the historical points, exam findings, and any diagnostic results supporting the discharge/admit diagnosis, lab results, radiology results, the need for outpatient follow up. 04/27 20:15 Order name: Urine Microscopic Only; Complete Time: 21:57 [facility] 04/27 20:32 Order name: Urine Dipstick-Ancillary; Complete Time: 21:57 [facility] 04/27 20:48 Order name: Basic Metabolic Panel; Complete Time: 00:41 [facility] 04/27 20:48 Order name: CBC with Diff [facility] 04/27 20:48 Order name: LFT's; Complete Time: 00:41 [facility] 04/27 20:48 Order name: Magnesium; Complete Time: 00:41 [facility] 04/27 20:48 Order name: NT PRO-BNP; Complete Time: 00:41 [facility] 04/27 20:48 Order name: PT-INR; Complete Time: 00:41 [facility] 04/27 20:48 Order name: Troponin (emerg Dept Use Only); Complete Time: 00:41 [facility] 04/27 20:48 Order name: XRAY Chest (1 view); Complete Time: 21:57 [facility] 04/27 20:48 Order name: ABG; Complete Time: 23:55 [facility] 04/27 22:30 Order name: Urine Dipstick-Ancillary; Complete Time: 22:45 [facility] 04/27 23:58 Order name: Manual Differential [facility] 04/27 20:15 Order name: Urine Dipstick-Ancillary (obtain specimen); Complete Time: 20:22 [facility] 04/27 20:48 Order name: EKG; Complete Time: 20:49 [facility] 04/27 20:48 Order name: Cardiac monitoring; Complete Time: 22:34 [facility] 04/27 20:48 Order name: EKG - Nurse/Tech; Complete Time: 22:34 [facility] 04/27 20:48 Order name: IV Saline Lock; Complete Time: 21:24 [facility] 04/27 20:48 Order name: Labs collected and sent; Complete Time: 21:24 [facility] 04/27 20:52 Order name: CT Thoracic Spine Wo Cont; Complete Time: 21:57 [facility] 04/27 20:52 Order name: CT Lumbar Spine Wo Con; Complete Time: 21:57 [facility] 04/27 20:48 Order name: O2 Per Protocol; Complete Time: 21:24 [facility] 04/27 20:48 Order name: O2 Sat Monitoring; Complete Time: 21:24 raven 04/27 23:14 Order name: Labs - recollect needed; Complete Time: 00:01 em EC:57 Rate is 101 beats/min. Rhythm is regular. QRS [place] is Normal. RI interval is normal. raven QRS interval is normal. QT interval is normal. No Q waves. T waves are Normal. No ST changes noted. Clinical impression: Sinus tachycardia and No evidence of ischemia. Interpreted by me. Reviewed by me. Administered Medications: 20:45 Drug: SOLU-Medrol (methylPrednisoLONE) 125 mg Route: IVP; Site: right forearm; bs2 04/28 00:02 Follow up: Response: No adverse reaction 2 04/27 21:00 Drug: fentaNYL (PF) 25 mcg Route: IVP; Site: right forearm; bs2 04/28 00:02 Follow up: Response: No adverse reaction; Pain is unchanged, physician notified bs2 04/27 21:00 Drug: Zofran (Ondansetron) 4 mg Route: IVP; Site: right forearm; bs2 04/28 00:02 Follow up: Response: No adverse reaction 2 04/27 21:24 CANCELLED (dosage change): fentaNYL Patch (50 mcg/hr) 1 patches Transdermal once; RASS bs2 on ADMIN: Combtv4, Very Agttd3, Agttd2, Rstlss1, AlertClm0, Drwsy-1, Lt Sdtn-2, Mod Sdtn-3, Dp Sdtn-4, UnArsble-5 22:00 Drug: Xopenex (levalbuterol) 2.5 mg Route: Inhalation; bs2 22:00 Drug: AtroVENT (ipratropium) Aerosol 0.5 mg Route: Inhalation; bs2 22:00 Drug: fentaNYL Patch (25 mcg/hr) 1 patches Route: Transdermal; Site: affected area; bs2 04/28 00:02 Follow up: Response: No adverse reaction; Pain is unchanged, physician notified bs2 Disposition Summary: 04/28/21 00:52 Discharge Ordered Location: Home raven Problem: new raven Symptoms: have improved raven Condition: Stable raven Diagnosis - COPD/ Chronic obstructive pulmonary disease, unspecified raven - Low back pain - and thoracic, kyphiosis raven - Fracture of thoracic vertebra - T11, 30% compression fracture raven Followup: raven - With: Private Physician - When: 2 - 3 days - Reason: Recheck today's complaints, Continuance of care, Re-evaluation by your physician Followup: raven - With: Jalen Curran MD - When: 2 - 3 days - Reason: Recheck today's complaints, Re-evaluation by your physician Discharge Instructions: - Discharge Summary Sheet raven - Acute Back Pain, Adult raven - Chronic Back Pain raven - Chronic Obstructive Pulmonary Disease raven - Musculoskeletal Pain raven - Thoracic Spine Fracture raven - Chronic Back Pain, [id number] raven - Thoracic Spine Fracture, [id number] [facility] Forms: - Medication Reconciliation Form raven - Thank You Letter raven - Antibiotic Education raven - Prescription Opioid Use [facility] Prescriptions: - albuterol sulfate 90 mcg/actuation Inhalation HFA aerosol inhaler - inhale 2 puff by INHALATION route every 4-6 hours; 1 puff; Refills: 0, Product [facility] Selection Permitted - Xopenex 1.25 mg/3 mL Inhalation Solution for Nebulization - inhale 1 unit by NEBULIZATION route every 8 hours As needed; 1 box; Refills: 0, [facility] Product Selection Permitted - Medrol (Davis) 4 mg Oral Tablets, Dose Pack - take 1 tablet by ORAL route as directed - follow package instructions; 1 [facility] packet; Refills: 0, Product Selection Permitted - Augmentin 875-125 mg Oral Tablet - take 1 tablet by ORAL route every 12 hours for 7 days; 14 tablet; Refills: 0, [facility] Product Selection Permitted Signatures: Dispatcher [employer] Terrance Lo MD MD cha Munoz, Edgar, RN RN Shayla Jj RN RN bs2 Corrections: (The following items were deleted from the chart) 04/27 21:24 20:52 fentaNYL Patch (50 mcg/hr) 1 patches Transdermal once; RASS on ADMIN: Combtv4, bs2 Very Agttd3, Agttd2, Rstlss1, AlertClm0, Drwsy-1, Lt Sdtn-2, Mod Sdtn-3, Dp Sdtn-4, UnArsble-5 ordered. [facility] 21:24 21:24 fentaNYL Patch (50 mcg/hr) 1 patches Transdermal once; RASS on ADMIN: Combtv4, bs2 Very Agttd3, Agttd2, Rstlss1, AlertClm0, Drwsy-1, Lt Sdtn-2, Mod Sdtn-3, Dp Sdtn-4, UnArsble-5 ordered. bs2
[2021-04-29 16:46] VITALS: BP 160/77; TEMP 98.9; O2SAT 98
== END 2021-04-28 01:36 | disposition home or self-care (01) ==
LOC: ER 19:53
DX: S22.089A Unspecified fracture of T11-T12 vertebra, initial encounter for closed fracture (principal); M40.205 Unspecified kyphosis, thoracolumbar region; J44.9 Chronic obstructive pulmonary disease, unspecified; I10 Essential (primary) hypertension; I50.9 Heart failure, unspecified; Z88.3 Allergy status to other anti-infective agents; Z88.5 Allergy status to narcotic agent
CPT/HCPCS: 93005; 85025; 80048; 36415; 83735; 85610; 80076; 84484; 83880; 72131; 72128; 71045; 82805; J3010; J2930; J2405; 81003; 81015

== ENCOUNTER 2021-05-02 10:31 | Emergency (ER) | payer OTHER ==
--- OUTSIDE RECORDS SUMMARY | 2021-05-02 10:35 | XMS REPORT | Continuity of Care Document ---
:1935 Author Organization [facility] t Address [address] [place] [address] Care Team Providers Name Role Phone Delicia LOPEZ Primary Care Physician Matt SINGH Attending Clinician Theodore Mendez DO Attending Clinician Darrius LOPEZ S Attending Clinician Gregoria LOPEZ Attending Clinician Cayden VERDUZCO Attending Clinician Rodney LOPEZ Attending Clinician Doctor Unassigned, Name Attending Clinician Unavailable Pob, Lab Main Attending Clinician Unavailable Gregoria LOPEZ Admitting Clinician Rodney LOPEZ Admitting Clinician Problems Condition Condition Condition Status Onset Resolution Last Treating Co mments Source Name Details Category Date Date Treatment Clinician Date No known No known Disease Metho di active active st problems problems Hospit a l Allergies, Adverse Reactions, Alerts Allergy Allergy Status Severity Reaction(s) Onset Inactive Treating Comm ents Source Name Type Date Date Clinician Clindamy Propensi Active Other (See Pt states Methodi cory ty to Comments) 6- she was st adverse 00:00: told not Hospita reaction 00 to take l s to by PCP drug Codeine Propensi Active Other (See Childhood Methodi ty to Comments) 6- allergy st adverse 00:00: Hospita reaction 00 l s to drug Social History Social Habit Start Date Stop Date Quantity Comments Source History of tobacco Cigarette Smoker [facility] Cigarettes smoked 2018-04-18 2018-04-[address] current (pack per 00:00:00 00:00:00 Hospita l day) - Reported Cigarette 2018-04-18 2018-04-18 [facility] pack-years 00:00:00 00:00:00 Hospital Alcohol intake 2018-04-18 2018-04-18 Current [facility] 00:00:00 00:00:00 non-drinker of Hospital alcohol (finding) Sex Assigned At [birth year] [facility] 00:00:00 00:00:00 Hospital Smoking Status Start Date Stop Date Source Current every day smoker 2018-04-18 00:00:00 Met [facility] Medications Ordered Filled Start Stop Current Ordering Indication Dosage Frequency Signature Comments Components Source Medication Medication Date Date Medication? Clinician (SIG) Name Name HYDROcodone Yes 1{tbl} Take 1 Me thodi -acetaminop 7-[address] sosa (NORCO) 23:40: mouth. Hosp gabe 7.5-325 mg 21 l per tablet gabapentin Yes [facility] (NEURONTIN) 7-16 st 300 mg 00:00: Hospita capsule 00 l traMADol Yes [facility] (ULTRAM) 50 7-16 st mg tablet 00:00: Hospita 00 l clorazepate Yes [facility] i (TRANXENE) 6-30 st 7.5 MG 00:00: Hospita tablet 00 l lisinopril Yes [facility] (PRINIVIL,Z 6-30 st ESTRIL) 20 00:00: Hospita mg tablet 00 l pantoprazol Yes [facility] i e 6-30 st (PROTONIX) 00:00: Hospita 40 MG EC 00 l tablet tiZANidine Yes [facility] (ZANAFLEX) 6-19 st 4 MG tablet 00:00: Hospit a 00 l PROAIR HFA Yes [facility] 90 5-04 st mcg/actuati 00:00: Hospit a on inhaler 00 l metoprolol 2018-0 Yes [facility] succinate 5-04 st XL 00:00: Hospita (TOPROL-XL) 00 l 50 mg 24 hr tablet Procedures This patient has no known procedures. Plan of Care Planned Activity Planned Date Details Comments Source Future Scheduled Test 65+ PNEUMOCOCCAL Me [facility] VACCINE (1 of 2 - PPSV23) [code = 65+ PNEUMOCOCCAL VACCINE (1 of 2 - PPSV23)] Future Scheduled Test COVID-19 VACCINE (1) [facility] [code = COVID-19 VACCINE (1)] Future Scheduled Test SHINGLES VACCINES (#1) [facility] [code = SHINGLES VACCINES (#1)] Future Scheduled Test INFLUENZA VACCINE [code [facility] = INFLUENZA VACCINE] Encounters Start End Encounter Admission Attending Care Care Encounter Source Date/Time Date/Time Type Type Clinicians Facility Department ID 2020-08-11 2020-08-11 Transition Fred Gutierrez [id number] 00:00:00 00:00:00 of Care Lissa Willson [id number] [place] [id number] 2020-08-02 2020-08-09 Hospital Danae Mendez [facility] 1.2.84 0.114 [id number] 18:18:00 17:46:00 Encounter Zuly Rizo [id number] 0 Lorene Kinney [id number] [place] [id number] 2020-08-05 2020-08-05 Transition Fred Gutierrez [id number] 00:00:00 00:00:00 of Care Lissa Willson [id number] [place] [id number] [id number] 2020-08-01 2020-08-02 Emergency Cecilia Rodarte [facility] 1.2.840. [id number] 13:38:00 14:03:00 Kris Stevens [id number] [place] [id number] [place] [id number] 2020-07-21 2020-07-21 Orders Doctor YESSENIA [id number] 00:00:00 00:00:00 Only Unassigned, GISELA [id number] [place] [facility] [id number] 2019-12-20 2019-12-20 Retina Subspecialist James Maki [facility] [id number] 14:10:01 14:34:05 Visit Lab Main [place] [id number] [place] [id number] [place] [id number] [facility] [address] Results Test Description Test Time Test Comments Results Result Comments Source SARS-COV2/RT-PCR ([facility]) 2020-04-28 19:12:00 Test Item Value Reference Range Interpretation Comme nts SARS-COV2/RT-PCR (test code = 4464041) Negative Not Detected, N egative, See external report for linked test SARS-COV-2 PERFORMING LAB (test code = BSC 7846239) Negative results do not preclude SARS-CoV-2 infection and should not be used as the sole basis for patient management decisions. Negative results must be combined with clinical observations, patient history, and epidemiological information. A false negative result may occur if a specimen is improperly collected, transported or handled.The limit of detection for this assay is 250 copies/mL.This SARS CoV-2 test is a rapid, real-time RT-PCR test intended for the qualitative detection of nucleic acid from SARS-CoV-2 in a nasopharyngeal swab specimen collected from individuals suspected of COVID-19 by their healthcare provider.This test has not been Food and Drug Administration (FDA) cleared or approved and has been authorized by FDA under an Emergency Use Authorization (EUA). This EUA will be effective until the declaration that circumstances exist justifying the authorization of the emergency use of in vitro diagnostic tests for detection and/or diagnosis of COVID-19 is terminated under Section 564(b)(2) of the Act or the EUA is revoked under Section 564(g) of the Act.Fact Sheet for Healthcare Pro viders:https://www.Aconex.com/Documents/Xpert%20Xpress%20SARS%20CoV-2/Fact%20Sh eets/302-2572%61JFDT-YGO-5%20HEALTHCARE%20PROVIDERS%20FACT%20SHEET.pdfFact Sheet for Healthcare Patients:https://www.Groxis/Documents/Xpert%20Xpress%20SARS%20CoV-2/Fact%20Sheets/3023801%20SARS-COV -2%20PATIENT%20FACT%20SHEET.pdfPerforming Laboratory:[facility], [place] [address]HTOT-XMS5/RT-PCR ([facility]) 2020-03-08 04:10:00 Test Item Value Reference Range Interpretation Comments SARS-COV2/RT-PCR (test Not Detected Not Detected, Negative code = [id number]) SARS-COV-2 PERFORMING LAB [facility] (test code = [id number]) Negative results do not preclude SARS-CoV-2 infection and should not be used as the sole basis for patient management decisions. Negative results must be combined with clinical observations, patient history, and epidemiological information. A false negative result may occur if a specimen is improperly collected, transported or handled.The limit of detection for this assay is 250 copies/mL.This SARS CoV-2 test is a rapid, real-time RT-PCR test intended for the qualitative detection of nucleic acid from SARS-CoV-2 in a nasopharyngeal swab specimen collected from individuals suspected of COVID-19 by their healthcare provider.This test has not been Food and Drug Administration (FDA) cleared or approved and has been authorized by FDA under an Emergency Use Authorization (EUA). This EUA will be effective until the declaration that circumstances exist justifying the authorization of the emergency use of in vitro diagnostic tests for detection and/or diagnosis of COVID-19 is terminated under Section 564(b)(2) of the Act or the EUA is revoked under Section 564(g) of the Act.Fact Sheet for Healthcare Pro viders:https://www.PermissionTV/Documents/Xpert%20Xpress%20SARS%20CoV-2/Fact%20Sh eets/302-8542%13WEAB-CQL-5%20HEALTHCARE%20PROVIDERS%20FACT%20SHEET.pdfFact Sheet for Healthcare Patients:https://www.cephe id.com/Documents/Xpert%20Xpress%20SARS%20CoV-2/Fact%20Sheets/218-3545%20SARS-COV -2%20PATIENT%20FACT%20SHEET.pdfPerforming Laboratory:[facility] [place] [address]
--- NOTE | 2021-05-02 13:38 | ER ---
Nurse's Notes [facility] Name: Allison Vickers Age: 86 yrs Sex: Female : 1935 Arrival Date: 05/02/2021 Time: 10:32 Bed 30 Private MD: Diagnosis: Wedge compression fracture of T11-T12 vertebra;Wedge compression fracture of first lumbar vertebra Presentation: 05/02 10:54 Chief complaint: EMS states: were called out for chronic back pain, pt just got a new iw fentanyl patch placed yesterday. Coronavirus screen: At this time, the client does not indicate any symptoms associated with coronavirus-19. Ebola Screen: Patient negative for fever greater than or equal to 101.5 degrees Fahrenheit, and additional compatible Ebola Virus Disease symptoms Patient denies exposure to infectious person. Patient denies travel to an Ebola-affected area in the 21 days before illness onset. No symptoms or risks identified at this time. 10:54 Method Of Arrival: EMS: [facility] iw 10:54 Acuity: JESUS 3 iw 11:45 Initial Sepsis Screen: Does the patient meet any 2 criteria? No. Patient's initial iw sepsis screen is negative. Does the patient have a suspected source of infection? No. Patient's initial sepsis screen is negative. Risk Assessment: Do you want to hurt yourself or someone else? Patient reports no desire to harm self or others. Onset of symptoms was April 27, 2021. 11:47 Note pt states she normally gets a shot of fentanyl , this episode started on Tuesday, iw was seen here earlier this week for similar symptoms. Historical: - Allergies: 11:46 Clindamycin; iw 11:46 Codeine; iw - PMHx: 11:46 ADD/ADHD; Arthritis; carpal tunnel syndrome; CHF; chronic bronchitis; Chronic pain; iw COPD; diverticulosis; hiatal hernia; Hypertension; IRON DEFICIENCY ANEMIA; - PSHx: 11:46 Appendectomy; back; Ligation of fallopian tube; iw - Immunization history:: Adult Immunizations up to date. - Social history:: Smoking status: . - Family history:: not pertinent. - Hospitalizations: : No recent hospitalization is reported. Screenin:20 Abuse screen: Denies threats or abuse. Nutritional screening: No deficits noted. ll1 Tuberculosis screening: No symptoms or risk factors identified. Fall Risk IV access (20 points). Ambulatory Aid- Crutches/Cane/Walker (15 pts). Gait- Weak (10 pts.). Total Francisco Fall Scale indicates High Risk Score (45 or more points). Fall prevention measures have been instituted. Side Rails Up X 2 Frequent Obs/Assessments Occuring As available patient and family educated on Fall Prevention Program and Strategies. Assessment: 12:23 General: Appears uncomfortable, Behavior is cooperative, appropriate for age, anxious, ll1 restless. Pain: Complains of pain in back Quality of pain is described as aching, throbbing, Aggravated by increased activity. Musculoskeletal: Circulation, motion, and sensation intact. Capillary refill < 3 seconds, Tenderness present in back Reports pain in back. Injury Description: fall over 10 years ago. Had compression fractures, chronic pain since. 13:20 Reassessment: No changes from previously documented assessment. Patient and/or family ll1 updated on plan of care and expected duration. Pain level reassessed. Patient is alert, oriented x 3, equal unlabored respirations, skin warm/dry/pink. Patient states symptoms have not improved. 14:18 Reassessment: No changes from previously documented assessment. Patient and/or family ll1 updated on plan of care and expected duration. Pain level reassessed. Patient states symptoms have not improved. Vital Signs: 11:47 BP 142 / 92; Pulse 94; Resp 22 S; Temp 97.6; Pulse Ox 92% on 3 lpm NC; iw 14:17 BP 119 / 62; Pulse 81; Resp 22; Pulse Ox 100% on 4 lpm NC; Pain 10/10; ll1 14:17 BP 127 / 95; Resp 21; ll1 ED Course: 10:32 Patient arrived in ED. rg4 10:55 Triage completed. iw 11:48 Arm band placed on. iw 12:20 Yareli Polanco, SAMANTHA is Primary Nurse. ll1 12:20 Patient placed in an exam room, on a stretcher. ll1 12:20 Patient has correct armband on for positive identification. Bed in low position. Call ll1 light in reach. Side rails up X2. Pulse ox on. NIBP on. 12:25 Chin Allan MD is Attending Physician. rn 13:36 Rod Dawson MD is Referral Physician. rn 14:17 No provider procedures requiring assistance completed. Patient did not have IV access ll1 during this emergency room visit. Administered Medications: 14:15 Drug: HYDROcodone-acetaminophen 5 mg-325 mg 1 tabs Route: PO; ll1 14:28 Follow up: Response: No adverse reaction; RASS: Drowsy (-1) ll1 Outcome: 13:37 Discharge ordered by . rn 14:18 Patient left the ED. ll1 14:18 Discharged to home via wheelchair. 1 14:18 Condition: stable 14:18 Discharge instructions given to patient, family, Instructed on discharge instructions, follow up and referral plans. medication usage, Demonstrated understanding of instructions, follow-up care, medications. Signatures: Montse Mendez RN RN iw Nieto, Roman, MD MD rn Garcia, Rubi 4 Yareli Polanco RN RN 1 Corrections: (The following items were deleted from the chart) 14:50 14:28 Patient left the ED. 1 1
--- NOTE | 2021-05-02 13:38 | EDPHYS ---
Physician Documentation [facility] Name: Allison Vickers Age: 86 yrs Sex: Female : 1935 Arrival Date: 05/02/2021 Time: 10:32 Bed 30 Private MD: ED Physician Chin Allan HPI: 05/02 13:28 This 86 yrs old Female presents to ER via EMS with complaints of Back Pain. rn 13:28 The patient presents with pain that is chronic, with no known mechanism of injury. The rn symptoms are located in the thoracic area and lumbar area. The pain does not radiate. Onset: The symptoms/episode began/occurred 2 week(s) ago. Modifying factors: The patient symptoms are alleviated by remaining still, the patient symptoms are aggravated by any movement, bending. Associated signs and symptoms: Pertinent negatives: fever, incontinence, urinary retention. Severity of symptoms: At their worst the symptoms were moderate, in the emergency department the symptoms have improved. The patient has experienced similar episodes in the past. Reports chronic back pain, recently seen for increase in pain of the lower thoracic and upper lower lumbar region. Denies fall or acute trauma. Denies urinary retention/weakness of lower extremities/urinary incontinence. Denies abdominal pain. Denies fever. Seen here last week and had CT imaging that showed subacute thoracic compression fracture. No acute changes recently, but still having pain. Patient takes hydrocodone 10 mg every 6-8 hours which helps.. Historical: - Allergies: 11:46 Clindamycin; iw 11:46 Codeine; iw - PMHx: 11:46 ADD/ADHD; Arthritis; carpal tunnel syndrome; CHF; chronic bronchitis; Chronic pain; iw COPD; diverticulosis; hiatal hernia; Hypertension; IRON DEFICIENCY ANEMIA; - PSHx: 11:46 Appendectomy; back; Ligation of fallopian tube; iw - Immunization history:: Adult Immunizations up to date. - Social history:: Smoking status: . - Family history:: not pertinent. - Hospitalizations: : No recent hospitalization is reported. ROS: 13:28 Constitutional: Negative for fever, chills, and weight loss, Neck: Negative for injury, rn pain, and swelling, Cardiovascular: Negative for chest pain, palpitations, and edema, Respiratory: Negative for shortness of breath, cough, wheezing, and pleuritic chest pain, Abdomen/GI: Negative for abdominal pain, nausea, vomiting, diarrhea, and constipation, Back: + back pain : Negative for injury, bleeding, discharge, and swelling, MS/Extremity: Negative for injury and deformity, Skin: Negative for injury, rash, and discoloration, Neuro: Negative for headache, weakness, numbness, tingling, and seizure. Exam: 13:28 Constitutional: Thin female, sleeping. Neck: Trachea midline, no masses palpated, no rn vertebral point tenderness. No Meningismus. Chest/axilla: Normal chest wall appearance and motion. Nontender with no deformity Cardiovascular: Regular rate and rhythm. No pulse deficits. Respiratory: No retractions Abdomen/GI: soft, non-tender, no masses Back: No spinal tenderness. Skin: Warm, dry MS/ Extremity: Pulses equal, no cyanosis. Neuro: Somnolent, but awakens to voice., GCS 15, oriented to person, place, time, and situation. Cranial nerves II-XII grossly intact. Motor strength 4/5 in all extremities. Sensory grossly intact. Vital Signs: 11:47 BP 142 / 92; Pulse 94; Resp 22 S; Temp 97.6; Pulse Ox 92% on 3 lpm NC; iw 14:17 BP 119 / 62; Pulse 81; Resp 22; Pulse Ox 100% on 4 lpm NC; Pain 10/10; ll1 14:17 BP 127 / 95; Resp 21; ll1 MDM: 12:25 Patient medically screened. rn 13:28 Differential diagnosis: arthritis, fracture, sciatica, contusion. Data reviewed: vital rn signs, nurses notes, old medical records, and as a result, I will discharge patient. Counseling: I had a detailed discussion with the patient and/or guardian regarding: the historical points, exam findings, and any diagnostic results supporting the discharge/admit diagnosis, radiology results, the need for outpatient follow up, to return to the emergency department if symptoms worsen or persist or if there are any questions or concerns that arise at home. Response to treatment: the patient's symptoms have mildly improved after treatment, and as a result, I will discharge patient. Special discussion: I discussed with the patient/guardian in detail that at this point there is no indication for admission to the hospital. It is understood, however, that if the symptoms persist or worsen the patient needs to return immediately for re-evaluation. Based on the history and exam findings, there is no indication for further emergent testing or inpatient evaluation. I discussed with the patient/guardian the need to see the back specialist for further evaluation of the symptoms. ED course: Patient with subacute thoracic spine compression fracture, no acute neurological findings, patient already on hydrocodone 10 mg every 6-8 hours. Patient somnolent currently and do not recommend stronger pain medication at this time due to chronic respiratory issues. Had long discussion with regarding this. Recommend pain management. Patient has already seen Dr. Bae in for spine, and he recommended an MRI and continued pain management at this time. Nothing new to offer today. Return precautions given and understood.. Administered Medications: 14:15 Drug: HYDROcodone-acetaminophen 5 mg-325 mg 1 tabs Route: PO; ll1 14:28 Follow up: Response: No adverse reaction; RASS: Drowsy (-1) ll1 Disposition Summary: 05/02/21 13:37 Discharge Ordered Location: Home rn Problem: an ongoing problem rn Symptoms: have improved rn Condition: Stable rn Diagnosis - Wedge compression fracture of T11-T12 vertebra rn - Wedge compression fracture of first lumbar vertebra rn Followup: rn - With: Rod Dawson MD - When: As needed - Reason: Recheck today's complaints, Re-evaluation by your physician Discharge Instructions: - Discharge Summary Sheet rn - Spinal Compression Fracture rn Forms: - Medication Reconciliation Form rn - Thank You Letter rn - Antibiotic rn assessment - Prescription Opioid Use rn Signatures: Montse Mendez RN RN Chin Miramontes MD MD rn Lewis, Lynsay, RN RN ll1
[2021-05-02] MEDS ORDERED: HYDROCODONE/APAP 5/325 MG TAB ONE (14:24)
[2021-05-02 14:38] VITALS: BP 142/92; TEMP 97.6; O2SAT 92
== END 2021-05-02 14:28 | disposition home or self-care (01) ==
LOC: ER 10:31
DX: S32.010A Wedge compression fracture of first lumbar vertebra, initial encounter for closed fracture (principal); S22.080A Wedge compression fracture of T11-T12 vertebra, initial encounter for closed fracture; I10 Essential (primary) hypertension; Z88.3 Allergy status to other anti-infective agents; Z88.5 Allergy status to narcotic agent
CPT/HCPCS: 99283

== ENCOUNTER 2021-05-03 13:19 | Inpatient (IN) | payer OTHER ==
--- OUTSIDE RECORDS SUMMARY | 2021-05-03 13:22 | XMS REPORT | Continuity of Care Document ---
:1935 Author Organization [facility] t Address [address] [place] [place] [address] Care Team Providers Name Role Phone Delicia [...] Other (See Childhood Methodi ty to Comments) 6-[address] adverse 00:00: Hospita reaction 00 l s to drug Social History Social Habit Start Date Stop Date Quantity Comments Source Sex Assigned At [facility] History of tobacco Cigarette Smoker [facility] Cigarettes smoked 2018-04-18 2018-04-[address] current (pack per 00:00:00 00:00:00 Hospita l day) - Reported Cigarette 2018-04-18 2018-04-18 [facility] pack-years 00:00:00 00:00:00 Hospital Alcohol intake 2018-04-18 2018-04-18 Current [facility] 00:00:00 00:00:00 non-drinker of Hospital alcohol (finding) Smoking Status Start Date Stop Date Source Current every day smoker 2018-04-18 00:00:00 Met [facility] Medications Ordered Filled Start Stop Current Ordering Indication Dosage Frequency Signature Comments Components Source Medication Medication Date Date Medication? Clinician (SIG) Name Name HYDROcodone Yes 1{tbl} Take 1 Me thodi -acetaminop 7-[address] hen (NORCO) 23:40: mouth. Hosp gabe 7.5-325 mg 21 l per tablet HYDROcodone Yes 1{tbl} Take 1 Me thodi -acetaminop 7-[address] hen (NORCO) 23:40: mouth. Hosp gabe 7.5-325 mg 21 l per tablet gabapentin Yes [facility] (NEURONTIN) 7-16 st 300 mg 00:00: Hospita capsule 00 l traMADol Yes [facility] (ULTRAM) 50 7-16 st mg tablet 00:00: Hospita 00 l gabapentin Yes [facility] (NEURONTIN) 7-16 st 300 [...] Hospita 40 MG EC 00 l tablet clorazepate Yes Method i (TRANXENE) 630 st 7.5 MG 00:00: Hospita tablet 00 l lisinopril 0 Yes [facility] (PRINIVIL,Z 6-30 st ESTRIL) 20 00:00: Hospita mg tablet 00 l pantoprazol Yes [facility] i e 630 st (PROTONIX) 00:00: Hospita 40 MG EC 00 l tablet tiZANidine Yes [facility] (ZANAFLEX) 6 st 4 MG tablet 00:00: Hospit a 00 l tiZANidine Yes [facility] (ZANAFLEX) 6 st 4 MG tablet 00:00: Hospit a 00 l PROAIR HFA 0 Yes [facility] 90 5-04 st mcg/actuati 00:00: Hospit a on inhaler 00 l metoprolol 0 Yes [facility] succinate 5-04 st XL 00:00: Hospita (TOPROL-XL) 00 l 50 mg 24 hr tablet PROAIR HFA Yes [facility] 90 5-04 st mcg/actuati 00:00: Hospit a on inhaler 00 l metoprolol 0 Yes [facility] succinate 5-04 st XL 00:00: Hospita (TOPROL-XL) 00 l 50 mg 24 hr tablet Procedures This patient has no known procedures. Plan of Care Planned Activity Planned Date Details Comments Source Future Scheduled Test 65+ PNEUMOCOCCAL [facility] VACCINE (1 of 2 - PPSV23) [code = 65+ PNEUMOCOCCAL VACCINE (1 of 2 - PPSV23)] Future Scheduled Test COVID-19 VACCINE (1) [facility] [code = COVID-19 VACCINE (1)] Future Scheduled Test SHINGLES VACCINES (#1) [facility] [code = SHINGLES VACCINES (#1)] Future Scheduled Test INFLUENZA VACCINE [code [facility] = INFLUENZA VACCINE] Future Scheduled Test 65+ PNEUMOCOCCAL [facility] VACCINE (1 of 2 - PPSV23) [code = 65+ PNEUMOCOCCAL VACCINE (1 of 2 - PPSV23)] Future Scheduled Test COVID-19 VACCINE (1) [facility] [code = COVID-19 VACCINE (1)] Future Scheduled Test SHINGLES VACCINES (#1) [facility] [code = SHINGLES VACCINES (#1)] Future Scheduled Test INFLUENZA VACCINE [code [facility] = INFLUENZA VACCINE] Encounters Start End Encounter Admission Attending Care Care Encounter Source Date/Time Date/Time Type Type Clinicians Facility Department ID 2020-08-11 2020-08-11 Transition Fred Gutierrez [id number] 00:00:00 00:00:00 of Care Lissa Willson [id number] [place] [id number] 2020-08-02 2020-08-09 Hospital Andrea Danae Theodore [facility] 1.2.84 0.114 [id number] 18:18:00 17:46:00 Encounter Zuly Rizo [id number] 0 Lorene Kinney [id number] [place] [id number] 2020-08-05 2020-08-05 Transition Fred Gutierrez [id number] 00:00:00 00:00:00 of Care Lissa Khouryy [id number] [place] [id number] 2020-08-01 2020-08-02 Emergency Cecilia Rodarte [facility] 1.2.840. [id number] 13:38:00 14:03:00 [place] [id number] [place] [id number] [place] [id number] 2020-07-21 2020-07-21 Orders Doctor YESSENIA [id number] 00:00:00 00:00:00 Only Unassigned, GISELA [id number] [place] [facility] [id number] [id number] 2019-12-20 2019-12-20 Manager [employer] Database James Maki [facility] [id number] 14:10:01 14:34:05 Visit Lab Main [place] [id number] [place] [id number] [facility] [id number] [facility] [address] Results Test Description Test Time Test Comments Results Result Comments Source SARS-COV2/RT-PCR ([facility]) 2020-04-28 19:12:00 Test Item Value Reference Range Interpretation Comme nts SARS-COV2/RT-PCR (test code = 3532093) Negative Not Detected, N egative, See external report for linked test SARS-COV-2 PERFORMING LAB (test code = [facility] 4950400) Negative results do not preclude SARS-CoV-2 infection [...] of the Act.Fact Sheet for Healthcare Pro viders:https://www.[employer]/Documents/Xpert%20Xpress%20SARS%20CoV-2/Fact%20Sh eets/302-2282%11FZFN-GXC-8%20HEALTHCARE%20PROVIDERS%20FACT%20SHEET.pdfFact Sheet for Healthcare Patients:https://www.[employer]/Documents/Xpert%20Xpress%20SARS%20CoV-2/Fact%20Sheets/3023801%20SARS-COV -2%20PATIENT%20FACT%20SHEET.pdfPerforming Laboratory:[place] [address], [place] [address]FNQQ-KCG3/RT-PCR ([facility]) 2020-03-08 04:10:00 Test Item Value Reference Range Interpretation Comments SARS-COV2/RT-PCR (test Not Detected Not Detected, Negative code = 2062480) SARS-COV-2 PERFORMING LAB [facility] (test code = 7719435) Negative results do not preclude SARS-CoV-2 infection [...] of the Act.Fact Sheet for Healthcare Pro viders:https://www.[employer]/Documents/Xpert%20Xpress%20SARS%20CoV-2/Fact%20Sh eets/3023802%29WMAX-PFL-7%20HEALTHCARE%20PROVIDERS%20FACT%20SHEET.pdfFact Sheet for Healthcare Patients:https://www.[employer]/Documents/Xpert%20Xpress%20SARS%20CoV-2/Fact%20Sheets/3023801%20SARS-COV -2%20PATIENT%20FACT%20SHEET.pdfPerforming Laboratory:[facility] [place] [address]
--- NOTE | 2021-05-03 21:14 | RAD REPORT ---
EXAM DESCRIPTION: RAD - Chest Single View - 05/03/2021 9:08 pm CLINICAL HISTORY: dehydration Chest pain. COMPARISON: Chest Single View dated 04/27/2021; Chest Pa And Lat (2 Views) dated 03/09/2021; Chest Pa A nd Lat (2 Views) dated 01/28/2021; Chest Single View dated 06/30/2020 FINDINGS: Portable technique limits examination quality. The lungs are emphysematous with haziness in the left lung base which may represent a mild infiltrate / pneumonia. . The heart is mildly enlarged in size. No displaced fractures.Moderate hiatal hernia.
[2021-05-03] MEDS ORDERED: NA CHLORIDE 0.9% 1,000 ML ONE (21:39)
[2021-05-03 21:41] LABS: Protime INR 0.91
[2021-05-03 21:42] LABS: Absolute Lymphocytes (CBC) 0.8 K/uL (0.7-4.9); Basophils % 0.4 % (0-1.3); Hematocrit 34.3 % (36.0-45.0); Lymphocytes % 5.2 % (15.3-44.8); RBC Red Blood Cell Count 3.77 M/uL (3.86-4.86)
[2021-05-03 22:05] LABS: ALT/SGPT 21 U/L (12-78); AST/SGOT 19 U/L (15-37); Albumin 3.1 g/dL (3.4-5.0); Alkaline Phosphatase 80 U/L (45-117); BUN Blood Urea Nitrogen 24 mg/dL (7-18); Bicarbonate 39 mmol/L (21-32); Bilirubin Direct 0.1 mg/dL (0-0.2); Bilirubin Total 0.4 mg/dL (0.2-1.0); Glucose Level 101 mg/dL (74-106); Magnesium 2.4 mg/dL (1.8-2.4); NT PRO-BNP 7674 pg/mL (<450); Potassium 4.8 mmol/L (3.5-5.1); Protein, Total 7.4 g/dL (6.4-8.2); Sodium Level 140 mmol/L (136-145); Troponin (Emerg Dept Use Only) < 0.02 ng/mL (0.0-0.045)
[2021-05-03 22:57] LABS: Blood Morphology Comment NOT SEEN (NOT SEEN); Platelet Estimate ADEQ
[2021-05-03 23:03] LABS: Arterial Blood Carboxyhemoglob 1.3 % (0-1.5); Blood Gas Oxyhemoglobin 92.6 % (94-97); Blood O2 Saturation 95.1 % (92-98.5)
[2021-05-03] MEDS ORDERED: ALBUTEROL 2.5 MG/3 ML NEB SOL ONE (23:14)
[2021-05-03] MEDS ORDERED: IPRATROPIUM BROM 0.5MG/2.5ML ONE (23:15)
[2021-05-03] MEDS ORDERED: CEFTRIAXONE/SWI 1gm 1 GM/10 ML SYR ONE (23:57)
[2021-05-04 00:21] LABS: Urine Blood 2+ (Negative); Urine Glucose Negative (Negative); Urine Protein 1+ (Negative); Urine pH 6.5 (5.0-7.0)
[2021-05-04 01:01] LABS: Urine Appearance CLEAR (Clear); Urine Bilirubin NEGATIVE (Negative); Urine Blood 1+ (Negative); Urine Color YELLOW (Yellow); Urine Glucose NEGATIVE (Negative); Urine Protein TRACE (Negative); Urine Specific Gravity >=1.030 (1.005-1.030); Urine Urobilinogen 0.2 mg/dL (0.2-1.0); Urine pH 6.5 (5.0-7.0)
[2021-05-04 01:04] LABS: Urine Microscopic Reflex ORDER UMIC
[2021-05-04 01:10] LABS: Urine Bacteria <20 /HPF (<20); Urine RBC <5 /HPF (NONE SEEN); Urine Urothelial Cells <5 /HPF (NONE SEEN)
--- NOTE | 2021-05-04 03:30 | EDPHYS ---
Physician Documentation [facility] Name: Allison Vickers Age: 86 yrs Sex: Female : 1935 Arrival Date: 05/03/2021 Time: 13:25 Bed 25 Private MD: ED Physician Jose Sanchez HPI: 05/03 20:37 This 86 yrs old Female presents to ER via EMS with complaints of Won't Eat, pkl Dehydration. 20:37 patient not eating for 2 days. The patient has been recently seen at the [facility] Emergency Department, yesterday, Patient seen in this ER yesterday for chronic back pain and discharged. Historical: - Allergies: 14:15 Clindamycin; ll1 14:15 Codeine; ll1 - PMHx: 14:15 CHF; Hypertension; diverticulosis; IRON DEFICIENCY ANEMIA; hiatal hernia; chronic ll1 bronchitis; carpal tunnel syndrome; ADD/ADHD; Chronic pain; Arthritis; COPD; - PSHx: 14:15 Appendectomy; back; Ligation of fallopian tube; ll1 - Immunization history:: Client reports receiving the 2nd dose of the Covid vaccine, Flu vaccine is not up to date. - Social history:: Smoking status: Patient/guardian denies using tobacco, the patient reports quitting approximately 11 years ago. ROS: 20:37 Eyes: Negative for injury, pain, redness, and discharge, ENT: Negative for injury, pkl pain, and discharge, Neck: Negative for injury, pain, and swelling, Cardiovascular: Negative for chest pain, palpitations, and edema, Respiratory: Negative for shortness of breath, cough, wheezing, and pleuritic chest pain, Abdomen/GI: Negative for abdominal pain, nausea, vomiting, diarrhea, and constipation. 20:37 Back: Positive for pain at rest, of the lower back. 20:37 : Negative for urinary symptoms. 20:37 MS/extremity: Negative for acute changes. 20:37 Skin: Negative for rash. 20:37 Neuro: Negative for altered mental status. Exam: 20:37 Head/Face: Normocephalic, atraumatic. Eyes: Pupils equal round and reactive to light, pkl extra-ocular motions intact. Lids and lashes normal. Conjunctiva and sclera are non-icteric and not injected. Cornea within normal limits. Periorbital areas with no swelling, redness, or edema. ENT: Nares patent. No nasal discharge, no septal abnormalities noted. Tympanic membranes are normal and external auditory canals are clear. Oropharynx with no redness, swelling, or masses, exudates, or evidence of obstruction, uvula midline. Mucous membranes moist. Neck: Trachea midline, no thyromegaly or masses palpated, and no cervical lymphadenopathy. Supple, full range of motion without nuchal rigidity, or vertebral point tenderness. No Meningismus. Chest/axilla: Normal chest wall appearance and motion. Nontender with no deformity. No lesions are appreciated. Cardiovascular: Regular rate and rhythm with a normal S1 and S2. No gallops, murmurs, or rubs. Normal PMI, no JVD. No pulse deficits. Respiratory: Lungs have equal breath sounds bilaterally, clear to auscultation and percussion. No rales, rhonchi or wheezes noted. No increased work of breathing, no retractions or nasal flaring. Abdomen/GI: Soft, non-tender, with normal bowel sounds. No distension or tympany. No guarding or rebound. No evidence of tenderness throughout. 20:37 Back: pain, that is mild, of the lower back. 20:37 : Exam negative for acute changes. 20:37 Musculoskeletal/extremity: Exam is negative for acute changes. 20:37 Skin: Exam negative for rash. 20:37 Neuro: Orientation: appropriate for stated age, Mentation: appropriate for stated age, Cranial nerves: grossly normal, Motor: is normal. Vital Signs: 14:13 BP 187 / 102; Pulse 92; Resp 20; Temp 98.5; Pulse Ox 96% ; Weight 40.82 kg; Height 5 ll1 ft. 4 in. (162.56 cm); Pain 6/10; 22:00 BP 154 / 94; Pulse 90; Resp 24; Pulse Ox 100% on R/A; bb 23:57 BP 153 / 88; Pulse 79; Resp 16 S; Pulse Ox 100% on BiPAP; bb 05/04 01:51 BP 156 / 65; Pulse 75; Resp 24 S; Pulse Ox 100% on BiPAP; bb 02:53 BP 166 / 66; Pulse 76; Resp 20 S; Pulse Ox 100% on BiPAP; bb 04:18 BP 210 / 95; Pulse 86; Resp 20 S; Pulse Ox 100% on BiPAP; bb 04:58 BP 152 / 85; Pulse 99; Resp 18 S; Pulse Ox 100% on BiPAP; bb 06:20 BP 173 / 81; Pulse 105; Resp 24 S; Pulse Ox 98% on 2 lpm NC; bb 05/03 14:13 Body Mass Index 15.45 (40.82 kg, 162.56 cm) ll1 MDM: 05/03 20:13 Patient medically screened. pk 05/04 03:26 Data reviewed: vital signs, nurses notes, lab test result(s), EKG, radiologic studies, pkl CT scan, plain films. ED course: Talked to ( Yariel Rangel ) Admit to Dr. Matthews. 05/03 20:30 Order name: Basic Metabolic Panel pk 05/03 20:30 Order name: CBC with Diff; Complete Time: 23:01 pkl 05/03 20:30 Order name: LFT's; Complete Time: 22:50 pkl 05/03 20:30 Order name: Magnesium; Complete Time: 22:50 pkl 05/03 20:30 Order name: NT PRO-BNP; Complete Time: 22:50 pkl 05/03 20:30 Order name: PT-INR; Complete Time: 22:29 pkl 05/03 20:30 Order name: Troponin (emerg Dept Use Only); Complete Time: 22:50 pkl 05/03 20:30 Order name: UA; Complete Time: 01:12 pkl 05/03 20:30 Order name: Blood Culture Adult (2) pk 05/03 20:30 Order name: Lactate; Complete Time: 22:29 pkl 05/03 20:31 Order name: Basic Metabolic Panel; Complete Time: 22:50 EDMS 05/03 21:52 Order name: Manual Differential; Complete Time: 23:01 EDMS 05/03 22:29 Order name: SARS-COV-2 RT PCR; Complete Time: 22:29 EDMS 05/03 20:30 Order name: XRAY Chest (1 view); Complete Time: 22:29 pkl 05/03 22:35 Order name: ABG bb 05/03 22:36 Order name: ABG Arterial Blood Gas; Complete Time: 00:17 EDMS 05/03 23:03 Order name: CT Chest For PE Angio pkl 05/03 23:04 Order name: Procalcitonin; Complete Time: 01:12 pkl 05/04 00:21 Order name: Urine Dipstick-Ancillary; Complete Time: 00:22 EDMS 05/04 00:21 Order name: Urine Dipstick-Ancillary; Complete Time: 00:21 EDMS 05/04 01:05 Order name: Urine Microscopic Only; Complete Time: 01:12 EDMS 05/03 20:30 Order name: EKG; Complete Time: 20:31 pkl 05/03 20:30 Order name: Cardiac monitoring; Complete Time: 22:33 pkl 05/03 20:30 Order name: EKG - Nurse/Tech; Complete Time: 22:33 pkl 05/03 20:30 Order name: IV Saline Lock; Complete Time: 21:26 pkl 05/03 20:30 Order name: Labs collected and sent; Complete Time: 21:26 pkl 05/03 20:30 Order name: O2 Per Protocol; Complete Time: 22:00 pkl 05/03 20:30 Order name: O2 Sat Monitoring; Complete Time: 22:00 pkl Administered Medications: 05/03 21:26 Drug: NS 0.9% 500 ml Route: IV; Rate: bolus; Site: left forearm; 22:30 Follow up: IV Status: Completed infusion; IV Intake: 500ml 21:30 Drug: NS 0.9% 1000 ml Route: IV; Rate: 100 ml/hr; Site: left forearm; 05/04 02:30 Follow up: IV Status: Order to discontinue infusion; IV Intake: 500ml 05/03 23:00 Drug: Albuterol - atroVENT (ipratropium) (3:1) (2.5 mg - 0.5 mg) 3 ml Route: Nebulizer; 05/04 00:00 Follow up: Response: No adverse reaction 05/03 23:54 Drug: Rocephin (cefTRIAXone) 1 grams Route: IV; Rate: calculated rate; Site: left bb forearm; 05/04 00:00 Follow up: IV Status: Completed infusion; IV Intake: 10ml 04:25 Drug: hydrALAZINE 10 mg Route: IVP; Site: left forearm; 05:00 Follow up: Response: No adverse reaction; Blood pressure is lowered bb 05:00 Drug: fentaNYL (PF) 50 mcg {Note: RASS 1.} Route: IVP; Site: left forearm; bb 05:24 Follow up: Response: No adverse reaction; Pain is decreased; RASS: Drowsy (-1) bb 05:38 Drug: LevaQUIN (levofloxacin) 750 mg Volume: 150 ml; Route: IVPB; Infused Over: 90 bb mins; Site: left forearm; 05:45 Drug: fentaNYL (PF) 50 mcg Route: IVP; Site: left forearm; bb 06:14 Follow up: Response: No adverse reaction; Pain is decreased; RASS: Light sedation (-2) bb 14:43 Drug: Benadryl (diphenhydrAMINE) 25 mg Route: IVP; Site: left hand; ld1 14:43 Drug: Pepcid (famotidine) 20 mg Route: IVP; Site: left hand; ld1 Disposition Summary: 05/04/21 03:29 Hospitalization Ordered Hospitalization Status: Inpatient Admission pkl Provider: Abdiel Matthews pkl Condition: Stable pkl Problem: new pkl Symptoms: are unchanged pkl Bed/Room Type: Standard pkl Location: Telemetry/MedSurg (Inpatient)(05/04/21 17:28) dw Room Assignment: 209(05/04/21 17:28) dw Diagnosis - Pneumonia. Respiratory Failure pkl Forms: - Medication Reconciliation Form pkl - SBAR form pkl Signatures: Dispatcher [employer] EDHI Juliane Tidwell RN RN mw Woody, Diana, RN RN dw Lam, Pin, MD MD pkl Kevin Herrmann RN RN em Ballard, Brenda, RN RN bb Roszak, Josh, PA PA jr8 Page, Corey, PA PA cp Lewis, Lynsay, RN RN ll1 Ade Cameron RN RN ld1 Corrections: (The following items were deleted from the chart) 05/03 21:23 20:37 CORONAVIRUS+MR.LAB.BRZ ordered. [facility] 05/04 03:45 03:29 Telemetry/MedSurg (Inpatient) pkl mw 03:45 03:29 pkl mw 17:28 03:45 [facility] ER HOLD mw dw 17:28 03:45 ERHOLD- mw dw
--- NOTE | 2021-05-04 03:30 | ER ---
Nurse's Notes [facility] Name: Allison Vickers Age: 86 yrs Sex: Female : 1935 Arrival Date: 05/03/2021 Time: 13:25 Bed 25 Private MD: Diagnosis: Pneumonia. Respiratory Failure Presentation: 05/03 14:13 Chief complaint: Patient states: Not eating well and dehydrated for 2 days. Sent in by [facility] home health nurse for dehydration. Has chronic back pain that still hurts even though she is taking Guy as prescribed. Coronavirus screen: Client denies travel out of the [place] in the last 14 days. At this time, the client does not indicate any symptoms associated with coronavirus-19. Ebola Screen: Patient denies travel to an Ebola-affected area in the 21 days before illness onset. Initial Sepsis Screen: Does the patient meet any 2 criteria? HR > 90 bpm. No. Patient's initial sepsis screen is negative. Does the patient have a suspected source of infection? No. Patient's initial sepsis screen is negative. Risk Assessment: Do you want to hurt yourself or someone else? Patient reports no desire to harm self or others. Onset of symptoms was May 02, 2021. 14:13 Method Of Arrival: EMS [facility] 14:13 Acuity: JESUS 3 1 Historical: - Allergies: 14:15 Clindamycin; ll1 14:15 Codeine; ll1 - PMHx: 14:15 CHF; Hypertension; diverticulosis; IRON DEFICIENCY ANEMIA; hiatal hernia; chronic ll1 bronchitis; carpal tunnel syndrome; ADD/ADHD; Chronic pain; Arthritis; COPD; - PSHx: 14:15 Appendectomy; back; Ligation of fallopian tube; ll1 - Immunization history:: Client reports receiving the 2nd dose of the Covid vaccine, Flu vaccine is not up to date. - Social history:: Smoking status: Patient/guardian denies using tobacco, the patient reports quitting approximately 11 years ago. Screenin:00 Abuse screen: Denies threats or abuse. Nutritional screening: pt family states he is bb unable to get pt to eat or take her medicine. Tuberculosis screening: No symptoms or risk factors identified. Fall Risk Secondary diagnosis (15 points) impaired mobility, confused. IV access (20 points). Mental Status- Overestimates/Forgets Limitations (15 pts.). Total Francisco Fall Scale indicates High Risk Score (45 or more points). Fall prevention measures have been instituted. Side Rails Up X 2 Family Present and informed to notify staff if the need to leave the bedside. Assessment: 20:00 General: Appears cachectic, Behavior is listless. Pain: Complains of pain in back. bb Neuro: Level of Consciousness is awake, confused, Oriented to person. 20:00 Cardiovascular: Heart tones S1 S2 present Capillary refill < 3 seconds Patient's skin bb is warm and dry. Edema is absent. Respiratory: Respiratory effort is labored, Respiratory pattern is tachypnea Breath sounds with wheezes in right upper lobe and right middle lobe. GI: No deficits noted. Derm: Skin is dry, Skin is pale, Skin temperature is cool. Musculoskeletal: Circulation, motion, and sensation intact. 21:00 Reassessment: No changes from previously documented assessment. family at bedside. bb 22:25 Reassessment: pt awake, oriented x 1, resp labored, tachypneic, IV site intact, patent, bb with fluids infusing, family at bedside. 23:28 Reassessment: Anshu at bedside for placement of bipap. bb 23:55 Reassessment: pt returned from CT via stretcher, IV site intact, patent. bb 05/04 01:50 Reassessment: pt appears to be sleeping, eyes closed, bipap in place, IV site intact, bb family at bedside. 02:52 Reassessment: pt appears to be sleeping, eyes closed, Bipap in place, family at bb bedside, awaiting admission. 04:19 Reassessment: pt bp 210/95 Yariel CATALAN notified, new orders received. bb 04:58 Reassessment: pt crying out appears in pain Yariel CATALAN notified new orders received bb pt medicated see DEC. 06:17 Reassessment: pt resting, moaning periodically, Bipap in place, bilateral breath sounds bb clear, IV site intact, patent, levaquin infusing, family at bedside. Vital Signs: 05/03 14:13 BP 187 / 102; Pulse 92; Resp 20; Temp 98.5; Pulse Ox 96% ; Weight 40.82 kg; Height 5 ll1 ft. 4 in. (162.56 cm); Pain 6/10; 22:00 BP 154 / 94; Pulse 90; Resp 24; Pulse Ox 100% on R/A; bb 23:57 BP 153 / 88; Pulse 79; Resp 16 S; Pulse Ox 100% on BiPAP; bb 05/04 01:51 BP 156 / 65; Pulse 75; Resp 24 S; Pulse Ox 100% on BiPAP; bb 02:53 BP 166 / 66; Pulse 76; Resp 20 S; Pulse Ox 100% on BiPAP; bb 04:18 BP 210 / 95; Pulse 86; Resp 20 S; Pulse Ox 100% on BiPAP; bb 04:58 BP 152 / 85; Pulse 99; Resp 18 S; Pulse Ox 100% on BiPAP; bb 06:20 BP 173 / 81; Pulse 105; Resp 24 S; Pulse Ox 98% on 2 lpm NC; bb 05/03 14:13 Body Mass Index 15.45 (40.82 kg, 162.56 cm) ll1 ED Course: 05/03 13:25 Patient arrived in ED. ds1 14:15 Triage completed. ll1 14:16 Arm band placed on. ll1 20:00 Patient has correct armband on for positive identification. Bed in low position. Call bb light in reach. Side rails up X2. Adult w/ patient. Pulse ox on. NIBP on. Warm blanket given. 20:13 Jose Sanchez MD is Attending Physician. pkl 20:18 Autumn Crowder, RN is Primary Nurse. zb 20:48 Primary Nurse role handed off by Autumn Crowder RN bb 20:48 Kristi Roberts, RN is Primary Nurse. bb 21:08 XRAY Chest (1 view) In Process Unspecified. EDMS 21:17 Inserted saline lock: 22 gauge in left wrist, using aseptic technique. Blood collected. ds4 23:54 CT Chest For PE Angio In Process Unspecified. EDMS 05/04 00:15 Chowdary cath inserted, using sterile technique, 16 Fr., by vt, balloon inflated, to bb gravity drainage, urine specimen collected. 01:51 No provider procedures requiring assistance completed. Patient admitted, IV remains in bb place. 03:28 Abdiel Matthews is Hospitalizing Provider. pkl Administered Medications: 05/03 21:26 Drug: NS 0.9% 500 ml Route: IV; Rate: bolus; Site: left forearm; em 22:30 Follow up: IV Status: Completed infusion; IV Intake: 500ml bb 21:30 Drug: NS 0.9% 1000 ml Route: IV; Rate: 100 ml/hr; Site: left forearm; bb 05/04 02:30 Follow up: IV Status: Order to discontinue infusion; IV Intake: 500ml bb 05/03 23:00 Drug: Albuterol - atroVENT (ipratropium) (3:1) (2.5 mg - 0.5 mg) 3 ml Route: Nebulizer; bb 05/04 00:00 Follow up: Response: No adverse reaction 05/03 23:54 Drug: Rocephin (cefTRIAXone) 1 grams Route: IV; Rate: calculated rate; Site: left bb forearm; 05/04 00:00 Follow up: IV Status: Completed infusion; IV Intake: 10ml bb 04:25 Drug: hydrALAZINE 10 mg Route: IVP; Site: left forearm; bb 05:00 Follow up: Response: No adverse reaction; Blood pressure is lowered bb 05:00 Drug: fentaNYL (PF) 50 mcg {Note: RASS 1.} Route: IVP; Site: left forearm; bb 05:24 Follow up: Response: No adverse reaction; Pain is decreased; RASS: Drowsy (-1) bb 05:38 Drug: LevaQUIN (levofloxacin) 750 mg Volume: 150 ml; Route: IVPB; Infused Over: 90 bb mins; Site: left forearm; 05:45 Drug: fentaNYL (PF) 50 mcg Route: IVP; Site: left forearm; bb 06:14 Follow up: Response: No adverse reaction; Pain is decreased; RASS: Light sedation (-2) bb 14:43 Drug: Benadryl (diphenhydrAMINE) 25 mg Route: IVP; Site: left hand; ld1 14:43 Drug: Pepcid (famotidine) 20 mg Route: IVP; Site: left hand; ld1 Intake: 05/03 22:30 IV: 500ml; Total: 500ml. bb 05/04 00:00 IV: 10ml; Total: 510ml. bb 02:30 IV: 500ml; Total: 1010ml. bb Outcome: 01:51 Condition: stable bb 01:51 Instructed on the need for admit. 03:29 Decision to Hospitalize by Provider. pkl 18:22 Admitted to Med/surg accompanied by tech, via stretcher, room 209, with chart, Report ld1 called to SAMANTHA Willett. 18:22 Patient left the ED. ld1 Signatures: Dispatcher [employer] Jose Whatley MD MD pkl Kevin Herrmann, RN RN Yamila Sheriff ds1 Kristi Roberts RN RN bb Harshil Ames ds4 Yraeli Polanco RN SAMANTHA ll1 Autumn Crowder RN RN zb Dibbern, Lauren RN RN ld1
[2021-05-04] MEDS ORDERED: HYDRALAZINE HCL 20 MG/ML VIAL ONE (04:44)
[2021-05-04] MEDS ORDERED: FENTANYL CITR 100 MCG/2 ML ONE (05:15)
[2021-05-04] MEDS ORDERED: HYDRALAZINE HCL 20 MG/ML VIAL IV PRN (05:25)
--- NOTE | 2021-05-04 05:36 | P.HP ---
Certification for Inpatient Patient admitted to: Inpatient With expected LOS: >2 Midnights Practitioner: I am a practitioner with admitting privileges, knowledge of patient current condition, hospital course, and medical plan of care. Services: Services provided to patient in accordance with Admission requirements found in Title 42 Section 412.3 of the Code of Federal Regulations Patient History Date of Service: 05/04/21 Primary Care Provider: Delicia Reason for admission: Pneumonia History of Present Illness: Is a 86-year-old patient with a history of congestive heart failure, hypertension, COPD, chronic pain that presented to the emergency room today for worsening of condition. Patient has been seen in the ER over the past few days for chronic pain. patient stated that now she is not eating and drinking very well and appears more altered than normal. Patient was worked up in the emergency room and found to be hypercarbic with a CO2 of 98 and a pH of 7.24. Chest x-ray revealed pneumonia which was also confirmed on the CT. SARS negative. Blood work was remarkable for a white cell count of 16.1, hemoglobin 10.8, hematocrit 34.3, platelet 249. Chemistry showed a sodium of 140, potassium 4.8, chloride of 97, bicarb 39, BUN 24, creatinine 0.41, glucose 101. Patient was put on BiPAP and started on antibiotics in the emergency room. Medicine was consult that time and will admit patient for further evaluation. Allergies clindamycin Allergy (Verified 04/28/20 19:09) unknown reaction codeine Allergy (Verified 04/28/20 19:09) unknown reaction Home medications list reviewed: Yes Home Medications: Carvedilol [Coreg] 1 tab PO BIDWM 05/15/20 Gabapentin 1 cap PO TID 05/15/20 Hydrocodone/Acetaminophen [Hydrocodone-Acetamin 10-325 mg] 1 tab PO QIDP PRN 05/15/20 Lisinopril [Zestril] 40 mg PO DAILY 05/15/20 Pantoprazole [Protonix Tab*] 40 mg PO DAILY 05/15/20 Loratadine [Claritin*] 1 tab PO DAILY 06/05/20 Cholecalciferol (Vitamin D3) [Vitamin D3] 5,000 unit PO DAILY 06/26/20 Fluticasone/Umeclidin/Vilanter [Trelegy Ellipta 100-62.5-25] 1 each IH DAILY 06/26/20 Furosemide [Lasix] 20 mg PO BID 06/26/20 predniSONE [Deltasone*] 10 mg PO DAILY 06/26/20 Albuterol Inhaler [Ventolin Inhaler*] 2 puff IH Q6H PRN #1 hfa.aer.ad 07/01/20 Aspirin [Aspirin EC 81 MG] 81 mg PO DAILY #30 tablet. 07/01/20 Clopidogrel Bisulfate [Plavix*] 75 mg PO DAILY #30 tablet 07/01/20 Ensure Enlive 237 ml PO BID #60 can 07/01/20 Folic Acid 1 mg PO DAILY #90 tablet 07/01/20 Melatonin [Melatonin*] 3 mg PO BEDTIME PRN PRN #30 tablet 07/01/20 - Past Medical/Surgical History Diabetic: No -: Hypertension -: Chronic vertebral fractures -: Former smoker -: GERD with hiatal hernia -: Anemia of chronic disease -: Chronic pain -: Diastolic CHF with pulmonary hypertension -: Carpal tunnel disease -: COPD, end-stage -: Back surgery -: Appendectomy -: carpal tunnel sx -: tubal ligation Psychosocial/ Personal History: Patient is and lives with - Family History Father -: Hypertension, Stroke Mother -: Hypertension, Stroke Brother -: Lung disease Sister -: Heart disease - Social History Smoking Status: Former smoker Smoking therapy provided: No Alcohol use: No CD- Drugs: No Caffeine use: Yes Place of Residence: Home Review of Systems General: As per HPI Eyes: Unremarkable ENT: Unremarkable Respiratory: Shortness of Breath Cardiovascular: Unremarkable Gastrointestinal: Unremarkable Genitourinary: Unremarkable Musculoskeletal: Unremarkable Integumentary: Unremarkable Neurological: As per HPI Lymphatics: Unremarkable Physical Examination - Vital Signs Temperature: 98.5 F Blood Pressure: 187/102 Pulse: 90 Respirations: 24 Pulse Ox (%): 100 (BiPAP) - Physical Exam General: Alert, Mild distress, Confused HEENT: Normocephalic, PERRLA Neck: Supple, 2+ carotid pulse no bruit, JVD not distended, No Thyromegaly Respiratory: Crackles/rales (Lower lobes) Cardiovascular: No edema, Normal pulses, Regular rate/rhythm, Normal S1 S2 Capillary refill: <2 Seconds Gastrointestinal: Normal bowel sounds, Soft and benign, Non-distended, No tenderness, No masses, No rebound, No guarding Musculoskeletal: No clubbing, No swelling, No contractures, No erythema, No tenderness, No warmth Integumentary: No rashes, No breakdown, No significant lesion, No tenderness/swelling, No erythema, No warmth, No cyanosis Neurological: Normal speech, Normal strength at 5/5 x4 extr, Normal tone, Sensation intact, Normal affect Lymphatics: No axilla or inguinal lymphadenopathy - Studies Laboratory Data (last 24 hrs) 05/03/21 21:17: PT 10.5, INR 0.91 05/03/21 21:17: WBC 16.10 H, Hgb 10.8 L, Hct 34.3 L, Plt Count 249 05/03/21 21:17: Sodium 140, Potassium 4.8, BUN 24 H, Creatinine 0.41 L, Glucose 101, Magnesium 2.4 D, Total Bilirubin 0.4, AST 19, ALT 21, Alkaline Phosphatase 80 Assessment and Plan - Problems (Diagnosis) (1) Hypercarbia Current Visit: Yes Status: Acute (2) Pneumonia Current Visit: Yes Status: Acute Qualifiers: Pneumonia type: due to unspecified organism Laterality: bilateral Lung location: unspecified part of lung Qualified Code(s): J18.9 - Pneumonia, unspecified organism (3) Hypertension Current Visit: Yes Status: Chronic Qualifiers: Hypertension type: primary hypertension Qualified Code(s): I10 - Essential (primary) hypertension (4) Chronic pain Current Visit: Yes Status: Chronic Qualifiers: Chronic pain type: due to trauma Qualified Code(s): G89.21 - Chronic pain due to trauma (5) Congestive heart failure Current Visit: Yes Status: Chronic Qualifiers: Heart failure type: unspecified Heart failure chronicity: chronic Qualified Code(s): I50.9 - Heart failure, unspecified (6) Altered awareness, transient Current Visit: No Status: Acute (7) History of COPD Current Visit: No Status: Chronic - Plan 1. Patient will be admitted to telemetry unit for further evaluation of pneumonia with hypercarbia 2. Patient will remain on BiPAP for the hypercarbia and will monitor ABGs over the next several hours for improvement 3. Patient will continue on antibiotics for pneumonia we will wait for blood cultures to come back 4. Vital signs per protocol 5. Patient will be lightly hydrated for dehydration. We will continue to monitor I's and O's and fluid assessment 6. Blood pressure will be monitored and treated for anything over 160 systolic or 90 diastolic 7. DVT prophylaxis Discharge Plan: Home Plan to discharge in: Greater than 2 days - Advance Directives Does patient have a Living Will: Yes Does patient have a Durable POA for Healthcare: Yes - Code Status/Comfort Care Code Status Assessed: Yes Code Status: Do Not Attempt Resuscitat Critical Care: No Time Spent Managing Pts Care (In Minutes): 80
[2021-05-04] MEDS ORDERED: Levofloxacin 750mg IV 750 MG/150 ML BAG IV ONE (05:49)
[2021-05-04] MEDS: NA CHLORIDE 0.9% 1,000 ML IV SCH ×2 (07:18→23:59)
[2021-05-04] MEDS ORDERED: IPRATROPIUM BROM 0.5MG/2.5ML NEB PRN (07:18)
[2021-05-04] MEDS ORDERED: ALBUTEROL 2.5 MG/3 ML NEB SOL NEB PRN (07:18)
--- NOTE | 2021-05-04 09:00 | RAD REPORT ---
EXAM DESCRIPTION: CT - Chest For Pe Angio - 05/03/2021 11:54 pm CLINICAL HISTORY: DYSPNEA TECHNIQUE: Contiguous axial images obtained through the chest during angiographic phase following th e uneventful administration of IV contrast. Sagittal and coronal reformatted images were provided. TN P reformatted images were provided. This exam was performed according to our departmental dose-optimization program, which includes autom ated exposure control, adjustment of the mA and/or kV according to patient size and/or use of iterati ve reconstruction technique. COMPARISON: 04/28/2020 FINDINGS: Diagnostic quality: There is good opacification of the pulmonary arterial tree. Motion art ifact degrades image quality and limits evaluation of segmental and subsegmental vessels particularly at the lung bases. Lungs: Centrilobular emphysema. Mild biapical pleural parenchymal scar. Patchy multifocal reticular n odular opacities with a right upper and left lower lobe predominance. Mild left basilar consolidation . Right middle lobe calcified granuloma. Airways are patent. Pleura: Trace bilateral pleural effusions. No pneumothorax. Heart and pericardium: The heart is mildly enlarged. Coronary artery calcification.. No pericardial e ffusion. Mediastinum and jey: No pathologically enlarged lymph nodes. Moderate hiatal hernia. Lower neck and chest wall: 6 mm partially calcified right thyroid nodule. Vessels: No pulmonary arterial filling defects. Mild to moderate atherosclerotic disease. No thoracic aortic aneurysm. Upper abdomen: Hepatic and splenic parenchymal calcifications compatible with remote granulomatous or ganism exposure. Bones: Multilevel spondylosis. Remote T11, T12 and L1 compression deformities with associated kyphosi s. Interval T8 compression fracture with approximately 40% loss of overall height. The endplates appe ar fairly well corticated. IMPRESSION: 1. Motion artifact degrades image quality and limits evaluation of segmental and subse gmental vessels particularly at the lung bases. No central or proximal segmental pulmonary embolic di sease. 2. Patchy multifocal infiltrates bilaterally. Mild left basilar consolidation (atelectasis and/or i nfiltrate). Trace bilateral pleural effusions. 3. Interval T8 compression fracture with approximately 40% loss of overall height. The endplates ap pear fairly well corticated and may be related to remote trauma. 4. 6 mm right thyroid nodule. No follow-up imaging is recommended. Reference: J Am Mane Radiol. 201 Nov;12(2): 143-50 5. Other findings as above. Electronically signed by: Mina Mcdonald MD 05/04/2021 12:23 AM CDT Due to temporary technical issues with the PACS/Fluency reporting system, reports are being signed by the in house radiologists without review as a courtesy to insure prompt reporting. The interpreting radiologist is fully responsible for the content of the report.
--- NOTE | 2021-05-04 09:04 | EKG ---
Test Date: 2021-05-03 Test Time: 22:27:27 Director Product Development: [employer]ALINO MEASUREMENT RESULTS: Intervals: Rate: 92 CA: 122 QRSD: 68 QT: 348 QTc: 430 [place]: P: 77 CA: 122 QRS: 85 T: 80 INTERPRETIVE STATEMENTS: Sinus rhythm with premature atrial complexes Otherwise normal ECG Compared to ECG 04/27/2021 21:51:34 Atrial premature complex(es) now present Sinus tachycardia no longer present Electronically Signed On 05-04-21 09:03:54 CDT by Randall Brown
[2021-05-04] MEDS: MORPHINE 4 MG/ML SYR IV PRN ×2 (11:11→20:14)
[2021-05-04] MEDS: ONDANSETRON 4 MG/2 ML VIAL IV PRN (11:12)
[2021-05-04] MEDS ORDERED: MORPHINE 4 MG/ML SYR ONE (11:29)
[2021-05-04] MEDS ORDERED: ONDANSETRON 4 MG/2 ML VIAL ONE (11:29)
[2021-05-04] MEDS ORDERED: ACETAMINOPHEN 500 MG TAB ONE (11:54)
[2021-05-04] MEDS ORDERED: ACETAMINOPHEN 650MG/RECT SUPP PR ONE ×2 (12:12→12:13)
[2021-05-04 13:02] VITALS: BMI 16.5
[2021-05-04] MEDS ORDERED: FAMOTIDINE 20 MG/2 ML VIAL IV ONE (15:01)
[2021-05-04] MEDS ORDERED: DIPHENHYDRAMINE 50 MG/ML VIAL ONE (15:01)
[2021-05-04] MEDS: ENOXAPARIN 40 MG/0.4 ML SQ SCH (17:00)
--- NOTE | 2021-05-04 17:26 | P.PN ---
Date of Service: 05/04/21 Patient seen and examined. She is confused and restless. She is maintained on oxygen by nasal cannula. Low-grade fever Elevated blood pressure. Diagnosis: Pneumonia Metabolic encephalopathy Sepsis. Plan: Continue antibiotics Hold lasix Morphine p.r.n. for shortness of breath. Haldol p.r.n. for agitation. Supplemental oxygen Bronchodilators. Follow cultures.
[2021-05-04] MEDS: HYDRALAZINE HCL 20 MG/ML VIAL IV PRN (23:59)
[2021-05-05] MEDS: MORPHINE 4 MG/ML SYR IV PRN ×3 (00:30→22:08)
[2021-05-05 05:41] LABS: Hematocrit 32.1 % (36.0-45.0); MPV 7.1 fL (7.6-11.3); RBC Red Blood Cell Count 3.59 M/uL (3.86-4.86)
[2021-05-05] MEDS ORDERED: Levofloxacin500mg IV 500 MG/100 ML BAG IV SCH (06:00)
[2021-05-05 06:02] LABS: BUN Blood Urea Nitrogen 23 mg/dL (7-18); Bicarbonate 35 mmol/L (21-32); Glucose Level 73 mg/dL (74-106); Sodium Level 142 mmol/L (136-145)
[2021-05-05 06:08] LABS: Magnesium 2.3 mg/dL (1.8-2.4); Potassium 4.6 mmol/L (3.5-5.1)
--- NOTE | 2021-05-05 08:51 | RAD REPORT ---
EXAM DESCRIPTION: RAD - Chest Single View - 05/05/2021 8:28 am CLINICAL HISTORY: SOB, eval opacities, ?CHF COMPARISON: Chest Single View dated 05/03/2021; Chest Single View dated 04/27/2021; Chest Pa And Lat (2 Views) dated 03/09/2021; Chest Pa And Lat (2 Views) dated 01/28/2021; Chest For Pe Angio dated 05/03/2021 FINDINGS: Emphysema. Increasing opacities within the upper lungs bilaterally, left greater than righ t. No consolidative airspace disease. The heart size is within normal limits.No acute osseous abnorma lity. No significant pleural effusions or pneumothorax. IMPRESSION: Increasing ill-defined opacities in the upper lungs concerning for infection or inflamma tion. There are also some mild opacities medially within the left lung base which are similar.
--- NOTE | 2021-05-05 08:53 | P.PN ---
Subjective Date of Service: 05/05/21 Primary Care Provider: Delicia Chief Complaint: Pneumonia Subjective: Improving (more alert this morning, AAOx2, but still lethargic, on bipap overnight.) Review of Systems 10-point ROS is otherwise unremarkable Physical Examination - Vital Signs Temperature: 97.9 F Blood Pressure: 173/81 Pulse: 107 Respirations: 20 Pulse Ox (%): 97 - Studies Microbiology Data (last 24 hrs): 05/03/21 21:17 Blood - Blood Anaerobic Blood Culture - Final Assessment & Plan Physician Review Additional Text: Physical Exam General: AAOx2, sleepy HEENT: PERRL, normal conjunctiva Respiratory: Crackles/rales bilateral bases Cardiovascular: No edema, Normal pulses, Regular rate/rhythm, Normal S1 S2 Gastrointestinal: soft, nontender, nondistended Musculoskeletal: no joint swelling/tenderness Integumentary: No rashes, No breakdown Neurological: Normal speech, moves all extremities, tired Problem List acute hypoxemic respiratory failure with hypercarbia secondary to pneumonia and COPD exacerbation Acute on chronic COPD exacerbation HTN chronic pain chronic CHF metabolic encephalopathy -continue telemetry -continue antibiotics -ABG ordered for this morning to re-eval CO2 and BIPAP -pulm consulted given h/o COPD and hypercapnia -cultures pending -dc IVF today -hypertensive, restart home meds, PRN hydralazine Code: DNR Dispo: anticipate dc home in 2-3 days Time Spent Managing Pts Care (In Minutes): 35
[2021-05-05] MEDS: NA CHLORIDE 0.9% 1,000 ML IV SCH (09:58)
[2021-05-05 10:54] LABS: Arterial Blood Carboxyhemoglob 1.3 % (0-1.5); Blood Gas Oxyhemoglobin 95.2 % (94-97); Blood O2 Saturation 97.7 % (92-98.5)
[2021-05-05] MEDS: HYDRALAZINE HCL 20 MG/ML VIAL IV PRN (12:09)
[2021-05-05] MEDS: ENSURE ENLIVE 237 ML CAN PO SCH ×2 (15:38→23:10)
[2021-05-05] MEDS: carvediloL 12.5 MG TAB PO SCH (18:07)
[2021-05-05] MEDS: ENOXAPARIN 40 MG/0.4 ML SQ SCH (18:08)
[2021-05-05] MEDS: ACETAMINOPHEN 500 MG TAB PO PRN (18:12)
[2021-05-06 05:49] LABS: Absolute Lymphocytes (CBC) 0.7 K/uL (0.7-4.9); Basophils % 0.7 % (0-1.3); Hematocrit 27.7 % (36.0-45.0); MPV 7.1 fL (7.6-11.3); RBC Red Blood Cell Count 3.08 M/uL (3.86-4.86)
[2021-05-06 06:05] LABS: BUN Blood Urea Nitrogen 30 mg/dL (7-18); Bicarbonate 39 mmol/L (21-32); Glucose Level 101 mg/dL (74-106); Magnesium 2.4 mg/dL (1.8-2.4); Sodium Level 144 mmol/L (136-145)
[2021-05-06 06:37] LABS: Arterial Blood Carboxyhemoglob 1.3 % (0-1.5); Blood Gas Oxyhemoglobin 95.7 % (94-97); Blood O2 Saturation 98.1 % (92-98.5)
[2021-05-06] MEDS: MORPHINE 4 MG/ML SYR IV PRN ×3 (07:08→16:51)
--- NOTE | 2021-05-06 07:49 | P.PN ---
Subjective Date of Service: 05/06/21 Primary Care Provider: Delicia Chief Complaint: Pneumonia Subjective: Improving (feeling better, tolerating BIPAP yesterday/overnight. Would like to come off of it. more alert/oriented, CO2 improving) Review of Systems 10-point ROS is otherwise unremarkable Physical Examination - Vital Signs Temperature: 98.0 F Blood Pressure: 162/77 Pulse: 66 Respirations: 18 Pulse Ox (%): 96 Assessment & Plan Physician Review Additional Text: Physical Exam General: AAOx3, thin, frail appearing HEENT: PERRL, normal conjunctiva Respiratory: Crackles/rales bilateral bases, nonlabored on BIPAP Cardiovascular: No edema, Regular rate/rhythm Gastrointestinal: soft, nontender, nondistended Musculoskeletal: no joint swelling/tenderness Integumentary: No rashes, No breakdown Neurological: Normal speech, moves all extremities teran in place Problem List acute hypoxemic respiratory failure with hypercarbia secondary to pneumonia and COPD exacerbation Acute on chronic COPD exacerbation, on chronic O2 at home HTN chronic pain chronic CHF metabolic encephalopathy -continue telemetry -continue levaquin for pneumonia -ABG ordered for this morning to re-eval CO2 and BIPAP - CO2 improving, will place patient on nasal cannula -pulm consulted given h/o COPD and hypercapnia, may benefit from NIV at home -cultures pending - no growth so far -hypertensive, restarted home meds 05/05, PRN hydralazine -improving Code: DNR Dispo: anticipate dc home in ~2 days patient and states were looking into palliative care, does not want hospice protective services social worker consulted Time Spent Managing Pts Care (In Minutes): 35
[2021-05-06] MEDS: carvediloL 12.5 MG TAB PO SCH ×2 (09:03→16:50)
[2021-05-06] MEDS: levoFLOXacin 500 MG TAB PO SCH (09:03)
[2021-05-06] MEDS: HYDRALAZINE HCL 20 MG/ML VIAL IV PRN (09:04)
[2021-05-06] MEDS: ENSURE ENLIVE 237 ML CAN PO SCH ×3 (09:05→21:00)
--- NOTE | 2021-05-06 13:45 | P.CNS ---
Date of Consult: 05/06/21 (Pt agreed to TV) Reason for Consult: Resp failure Primary Care Provider: Delicia Chief Complaint: Pneumonia/ Reps failure History of Present Illness: Age 86 AMS, not eating and drinking,Aw penumonia, resp failure REcurrent pneumonias Allergies clindamycin Allergy (Verified 04/28/20 19:09) unknown reaction codeine Allergy (Verified 04/28/20 19:09) unknown reaction Home Medications: Carvedilol [Coreg] 12.5 mg PO BIDWM 05/15/20 Gabapentin 300 mg PO TID 05/15/20 Hydrocodone/Acetaminophen [Hydrocodone-Acetamin 10-325 mg] 1 tab PO QID 05/15/20 Pantoprazole [Protonix Tab*] 40 mg PO DAILY 05/15/20 Cholecalciferol (Vitamin D3) [Vitamin D3] 1,000 unit PO DAILY 06/26/20 Fluticasone/Umeclidin/Vilanter [Trelegy Ellipta 100-62.5-25] 1 each IH DAILY 06/26/20 Furosemide [Lasix] 20 mg PO DAILY 06/26/20 Albuterol Inhaler [Ventolin Inhaler*] 2 puff IH Q6H PRN #1 hfa.aer.ad 07/01/20 Melatonin [Melatonin*] 3 mg PO BEDTIME PRN PRN #30 tablet 07/01/20 Potassium Gluconate [Potassium] 99 mg PO DAILY 05/05/21 - Past Medical/Surgical History Diabetic: No -: Hypertension -: Chronic vertebral fractures -: Former smoker -: GERD with hiatal hernia -: Anemia of chronic disease -: Chronic pain -: Diastolic CHF with pulmonary hypertension -: Carpal tunnel disease -: COPD, end-stage -: Back surgery -: Appendectomy -: carpal tunnel sx -: tubal ligation Psychosocial/ Personal History: Patient is and lives with - Family History Father Medical History: Hypertension, Stroke Mother Medical History: Hypertension, Stroke Brother Medical History: Lung disease Sister Medical History: Heart disease - Social History Smoking Status: Unknown if ever smoked Alcohol use: No CD- Drugs: No Caffeine use: Yes Place of Residence: Home Review of Systems General: Weakness Respiratory: Shortness of Breath Physical Examination Temp Pulse Resp BP Pulse Ox 97.8 F 89 22 H 124/60 97 05/06/21 12:00 05/06/21 12:00 05/06/21 12:00 05/06/21 12:00 05/06/21 12:00 General: Alert, Oriented x3, Cooperative - Problems (1) Respiratory failure with hypercapnia Current Visit: Yes Status: Acute Plan: PT i s 86 yrs of age terminal COPD Aw exacerbation/ PT will benfir from NIV to prevent hospital readmissions/ In view of severity of COPD BIPAP deemed inappropriate/ CT reviewed Qualifiers: Chronicity: chronic Qualified Code(s): J96.12 - Chronic respiratory failure with hypercapnia
[2021-05-06] MEDS: ENOXAPARIN 40 MG/0.4 ML SQ SCH (16:51)
[2021-05-07] MEDS: MORPHINE 4 MG/ML SYR IV PRN ×2 (03:43→08:16)
[2021-05-07 05:54] LABS: Absolute Lymphocytes (CBC) 0.9 K/uL (0.7-4.9); Basophils % 0.5 % (0-1.3); Hematocrit 28.1 % (36.0-45.0); Lymphocytes % 12.4 % (15.3-44.8); MPV 6.8 fL (7.6-11.3); RBC Red Blood Cell Count 3.13 M/uL (3.86-4.86)
[2021-05-07 06:20] LABS: BUN Blood Urea Nitrogen 33 mg/dL (7-18); Glucose Level 105 mg/dL (74-106); Magnesium 2.3 mg/dL (1.8-2.4); Potassium 4.1 mmol/L (3.5-5.1); Sodium Level 143 mmol/L (136-145)
[2021-05-07 06:21] LABS: Bicarbonate 41 mmol/L (21-32)
[2021-05-07] MEDS: levoFLOXacin 500 MG TAB PO SCH (08:16)
[2021-05-07] MEDS: ENSURE ENLIVE 237 ML CAN PO SCH ×3 (08:16→22:56)
[2021-05-07] MEDS: carvediloL 12.5 MG TAB PO SCH ×2 (08:16→17:02)
--- NOTE | 2021-05-07 09:23 | RAD REPORT ---
EXAM DESCRIPTION: RAD - Chest Single View - 05/07/2021 4:54 am CLINICAL HISTORY: pneumonia, f/u opacities Chest pain. COMPARISON: Chest Single View dated 05/05/2021; Chest Single View dated 05/03/2021; Chest Single View da shy 04/27/2021; Chest Pa And Lat (2 Views) dated 03/09/2021 FINDINGS: Portable technique limits examination quality. Mild interstitial lung opacities are present bilaterally appearing fractionally improved since prior study. The heart is moderately enlarged with a tortuous thoracic aorta. Small hiatal hernia is presen t.
[2021-05-07] MEDS ORDERED: FUROSEMIDE 20 MG TABLET PO SCH (10:15)
[2021-05-07 10:33] LABS: Blood Morphology Comment NOT SEEN (NOT SEEN); Platelet Estimate ADEQ
[2021-05-07] MEDS: THEOPHYLLINE SR 100 MG TAB PO SCH ×2 (10:41→22:56)
[2021-05-07] MEDS: GABAPENTIN 300 MG CAP PO SCH ×3 (10:42→22:56)
[2021-05-07] MEDS: HYDROCODONE/APAP 10/325 TAB PO PRN ×3 (10:42→22:57)
[2021-05-07] MEDS: acetaZOLAMIDE 250 MG TAB PO SCH (10:42)
[2021-05-07] MEDS: predniSONE 20 MG TAB PO SCH ×2 (10:42→22:56)
--- NOTE | 2021-05-07 10:59 | P.PN ---
Subjective Date of Service: 05/07/21 Primary Care Provider: Delicia Chief Complaint: Pneumonia/ Reps failure Subjective: Improving (breathing more comfortably, near baseline. however back pain worsening. has not had home pain medications. denies any new neuro findings . has not gotten out of bed) Review of Systems 10-point ROS is otherwise unremarkable Physical Examination - Vital Signs Temperature: 97.9 F Blood Pressure: 141/64 Pulse: 80 Respirations: 20 Pulse Ox (%): 97 Assessment & Plan Physician Review Additional Text: Physical Exam General: AAOx3, thin, frail appearing, uncomfortable / in pain HEENT: PERRL, normal conjunctiva Respiratory: diminished bilaterally with crackles at bases, on NC Cardiovascular: trace edema bilaterally, Regular rate/rhythm Gastrointestinal: soft, nontender, nondistended Musculoskeletal: tenderness along thoracic spine / paraspinal muscles Integumentary: No rashes, No breakdown Neurological: Normal speech, moves all extremities equally teran in place Problem List acute hypoxemic respiratory failure with hypercarbia secondary to pneumonia and COPD exacerbation Acute on chronic COPD exacerbation, on chronic O2 at home T8 compression fracture w/ ~40% loss of height, non-acute HTN chronic back pain chronic CHF metabolic encephalopathy, resolved -continue telemetry -continue levaquin for pneumonia -ABG improved with BIPAP. placed on nasal cannula during day since 05/06 -pulm consulted given h/o COPD and hypercapnia, would likely benefit from NIV at home -cultures pending - no growth so far -hypertensive, restarted home meds 05/05, PRN hydralazine -improving -restart home pain medication - norco and gabapentin - TRADE MANAGER reviewed, no red flags, chronic medications -remove teran after improved pain control Code: DNR Dispo: anticipate dc home in ~1-2 days patient and states were looking into palliative care, does not want hospice social media editor consulted Time Spent Managing Pts Care (In Minutes): 35
[2021-05-07] MEDS: IPRATROPIUM BROM 0.5MG/2.5ML NEB SCH ×2 (15:15→21:00)
[2021-05-07] MEDS: ENOXAPARIN 40 MG/0.4 ML SQ SCH (17:01)
[2021-05-07] MEDS: ONDANSETRON 4 MG/2 ML VIAL IV PRN (17:01)
[2021-05-08] MEDS: IPRATROPIUM BROM 0.5MG/2.5ML NEB SCH ×4 (02:00→20:00)
[2021-05-08 06:15] LABS: Magnesium 2.7 mg/dL (1.8-2.4); Potassium 5.2 mmol/L (3.5-5.1)
[2021-05-08] MEDS: Fluticasone/Umeclidin/Vilanter [Trelegy Ellipta 100-62.5-25] Blst.W.Dev IH SCH (09:00)
[2021-05-08] MEDS ORDERED: FUROSEMIDE 20 MG TABLET PO SCH (09:00)
[2021-05-08] MEDS: acetaZOLAMIDE 250 MG TAB PO SCH (09:18)
[2021-05-08] MEDS: carvediloL 12.5 MG TAB PO SCH ×2 (09:18→16:27)
[2021-05-08] MEDS: levoFLOXacin 500 MG TAB PO SCH (09:18)
[2021-05-08] MEDS: HYDROCODONE/APAP 10/325 TAB PO PRN ×3 (09:18→21:45)
[2021-05-08] MEDS: GABAPENTIN 300 MG CAP PO SCH ×3 (09:18→21:38)
[2021-05-08] MEDS: THEOPHYLLINE SR 100 MG TAB PO SCH ×2 (09:19→21:46)
[2021-05-08] MEDS: predniSONE 20 MG TAB PO SCH ×2 (09:19→21:38)
[2021-05-08] MEDS: ENSURE ENLIVE 237 ML CAN PO SCH ×3 (09:19→21:00)
--- NOTE | 2021-05-08 13:45 | P.PN ---
Subjective Date of Service: 05/08/21 Primary Care Provider: Delicia Chief Complaint: Pneumonia/ Reps failure Subjective: Improving (pt feeling much better today, breathing comfortably on 2L NC, pain controlled) Review of Systems 10-point ROS is otherwise unremarkable Physical Examination - Vital Signs Temperature: 98.3 F Blood Pressure: 117/59 Pulse: 84 Respirations: 18 Pulse Ox (%): 96 Assessment & Plan Physician Review Additional Text: Physical Exam General: AAOx3, thin, frail appearing, NAD HEENT: PERRL, normal conjunctiva Respiratory: diminished bilaterally with crackles at bases, on 2NC Cardiovascular: trace edema bilaterally, Regular rate/rhythm Gastrointestinal: soft, nontender, nondistended Integumentary: No rashes, No breakdown Neurological: Normal speech, moves all extremities equally teran in place Problem List acute hypoxemic respiratory failure with hypercarbia secondary to pneumonia and COPD exacerbation Acute on chronic COPD exacerbation, on chronic O2 at home T8 compression fracture w/ ~40% loss of height, non-acute HTN chronic back pain chronic CHF metabolic encephalopathy, resolved -continue telemetry -continue levaquin for pneumonia -ABG improved with BIPAP. placed on nasal cannula during day since 05/06 -pulm consulted given h/o COPD and hypercapnia, NIV ordered for home -cultures: no growth -hypertensive, restarted home meds 05/05, PRN hydralazine -restart home pain medication - norco and gabapentin - BAIT MAKER reviewed, no red flags, chronic medications -pain improved -dc teran -set up with palliative care with [facility], however and patient now refusing, want to go use their previous [facility] services Code: DNR Dispo: anticipate dc home on palliative care when set up Time Spent Managing Pts Care (In Minutes): 35
[2021-05-08] MEDS ORDERED: ALBUTEROL 2.5 MG/3 ML NEB SOL NEB PRN (14:00)
[2021-05-08] MEDS: ENOXAPARIN 40 MG/0.4 ML SQ SCH (16:27)
[2021-05-09] MEDS: IPRATROPIUM BROM 0.5MG/2.5ML NEB SCH ×4 (02:00→20:57)
[2021-05-09] MEDS: HYDROCODONE/APAP 10/325 TAB PO PRN ×3 (03:48→21:07)
[2021-05-09 06:28] LABS: Magnesium 2.6 mg/dL (1.8-2.4)
[2021-05-09] MEDS: Fluticasone/Umeclidin/Vilanter [Trelegy Ellipta 100-62.5-25] Blst.W.Dev IH SCH (09:00)
[2021-05-09] MEDS: acetaZOLAMIDE 250 MG TAB PO SCH (09:37)
[2021-05-09] MEDS: levoFLOXacin 500 MG TAB PO SCH (09:38)
[2021-05-09] MEDS: GABAPENTIN 300 MG CAP PO SCH ×3 (09:38→20:49)
[2021-05-09] MEDS: predniSONE 20 MG TAB PO SCH ×2 (09:38→20:49)
[2021-05-09] MEDS: carvediloL 12.5 MG TAB PO SCH ×2 (09:39→17:14)
[2021-05-09] MEDS: THEOPHYLLINE SR 100 MG TAB PO SCH ×2 (09:39→20:49)
[2021-05-09] MEDS: ONDANSETRON 4 MG/2 ML VIAL IV PRN (09:40)
[2021-05-09] MEDS: ENSURE ENLIVE 237 ML CAN PO SCH ×3 (09:46→20:50)
[2021-05-09] MEDS ORDERED: MAGNESIUM HYDROXIDE 8% 30 ML PO PRN (10:05)
[2021-05-09] MEDS ORDERED: MAGNESIUM HYDROXIDE 8% 30 ML PO ONE ×2 (10:05→10:06)
[2021-05-09 11:51] LABS: Blood Gas Oxyhemoglobin 95.5 % (94-97); Blood O2 Saturation 98.2 % (92-98.5)
--- NOTE | 2021-05-09 13:06 | P.PN ---
Subjective Date of Service: 05/09/21 Primary Care Provider: Delicia Chief Complaint: Pneumonia/ Reps failure Subjective: Worsening (pt had rough physician/internist, pain and more fatigued. has not been using BIPAP overnight. no nausea/vomiting, decreased appetite since yes terday) Review of Systems 10-point ROS is otherwise unremarkable Physical Examination - Vital Signs Temperature: 99.4 F Blood Pressure: 157/72 Pulse: 87 Respirations: 18 Pulse Ox (%): 98 - Studies Microbiology Data (last 24 hrs): 05/03/21 21:17 Blood - Blood Aerobic Blood Culture - Final No growth in 5 days. 05/03/21 21:17 Blood - Blood Anaerobic Blood Culture - Final Assessment & Plan Physician Review Additional Text: Physical Exam General: AAOx3, thin, frail appearing, NAD HEENT: PERRL, normal conjunctiva Respiratory: diminished bilaterally at bases, on 2NC Cardiovascular: no edema, Regular rate/rhythm Gastrointestinal: soft, nontender, nondistended Integumentary: No rashes, No breakdown Neurological: Normal speech, moves all extremities equally teran in place Problem List acute hypoxemic respiratory failure with hypercarbia secondary to pneumonia and COPD exacerbation Acute on chronic COPD exacerbation, on chronic O2 at home T8 compression fracture w/ ~40% loss of height, non-acute HTN chronic back pain chronic CHF metabolic encephalopathy, resolved -continue telemetry -continue levaquin for pneumonia -ABG improved with BIPAP. placed on nasal cannula during day since 05/06; has not been wearing BIPAP at night the last 2-3 nights, suspect hypercapnia leading to patient's decline in last ~24hrs -pulm consulted given h/o COPD and hypercapnia, NIV ordered for home -cultures: no growth -hypertensive, restarted home meds 05/05, PRN hydralazine -restart home pain medication - norco and gabapentin - GENERAL SCRAP WORKER reviewed, no red flags, chronic medications -pain improved -maintain teran for now for adequate I/Os, dc in AM -set up with palliative care with [facility], however and patient now refusing, want to go use their previous [facility] health services Code: DNR Dispo: anticipate dc home on palliative care when set up delayed now due to family changing their preference. Time Spent Managing Pts Care (In Minutes): 35
[2021-05-09] MEDS: ENOXAPARIN 40 MG/0.4 ML SQ SCH (17:14)
[2021-05-10] MEDS: IPRATROPIUM BROM 0.5MG/2.5ML NEB SCH ×4 (02:39→21:02)
[2021-05-10 06:53] LABS: MPV 6.8 fL (7.6-11.3)
[2021-05-10 06:54] LABS: BUN Blood Urea Nitrogen 41 mg/dL (7-18); Bicarbonate 40 mmol/L (21-32); Glucose Level 125 mg/dL (74-106); Magnesium 2.7 mg/dL (1.8-2.4); Potassium 4.7 mmol/L (3.5-5.1); Sodium Level 139 mmol/L (136-145)
[2021-05-10] MEDS: HYDROCODONE/APAP 10/325 TAB PO PRN ×3 (07:10→21:02)
[2021-05-10] MEDS: Fluticasone/Umeclidin/Vilanter [Trelegy Ellipta 100-62.5-25] Blst.W.Dev IH SCH (09:00)
[2021-05-10] MEDS: MORPHINE 4 MG/ML SYR IV PRN (09:49)
[2021-05-10] MEDS: levoFLOXacin 500 MG TAB PO SCH (09:53)
[2021-05-10] MEDS: GABAPENTIN 300 MG CAP PO SCH ×3 (09:53→21:02)
[2021-05-10] MEDS: THEOPHYLLINE SR 100 MG TAB PO SCH ×2 (09:53→21:00)
[2021-05-10] MEDS: predniSONE 20 MG TAB PO SCH ×2 (09:54→21:02)
[2021-05-10] MEDS: carvediloL 12.5 MG TAB PO SCH ×2 (09:54→16:01)
[2021-05-10] MEDS: ENSURE ENLIVE 237 ML CAN PO SCH ×3 (09:55→21:00)
--- NOTE | 2021-05-10 14:39 | P.PN ---
Subjective Date of Service: 05/10/21 Primary Care Provider: Delicia Chief Complaint: Pneumonia/ Reps failure Subjective: Improving (Feels much better, wore BiPAP throughout the night, much more alert and oriented, still with some back pain. Increased appetite, small bowel movement yesterday) Review of Systems 10-point ROS is otherwise unremarkable Physical Examination - Vital Signs Temperature: 98.5 F Blood Pressure: 136/63 Pulse: 76 Respirations: 14 Pulse Ox (%): 96 Assessment & Plan Physician Review Additional Text: Physical Exam General: AAOx3, thin, frail appearing, NAD HEENT: PERRL, normal conjunctiva Respiratory: diminished bilaterally at bases, on 2NC Cardiovascular: no edema, Regular rate/rhythm Gastrointestinal: soft, nontender, nondistended teran in place Problem List acute hypoxemic respiratory failure with hypercarbia secondary to pneumonia and COPD exacerbation Acute on chronic COPD exacerbation, on chronic O2 at home T8 compression fracture w/ ~40% loss of height, non-acute HTN chronic back pain chronic CHF metabolic encephalopathy, resolved -continue telemetry -continue levaquin for pneumonia -pulm consulted given h/o COPD and hypercapnia, NIV ordered for home -ABG improved with BIPAP. placed on nasal cannula during day since 05/06; has not been wearing BIPAP at night the last 2-3 nights, suspect hypercapnia leading to patient's decline -improved after wearing BIPAP again last night -hypertensive, restarted home meds 05/05, PRN hydralazine -restarted home pain medication - norco and gabapentin - [employer] reviewed, no red flags, chronic medications -pain improved -maintain teran for now for adequate I/Os, dc in AM - ordered -set up with palliative care with [facility], however and patient now refusing, want to go use their previous [facility] services Code: DNR Dispo: anticipate dc home on palliative care when set up delayed now due to family changing their preference. Time Spent Managing Pts Care (In Minutes): 35
[2021-05-10] MEDS ORDERED: BISACODYL 10 MG RECTAL SUPP PR ONE (14:43)
[2021-05-10] MEDS: ENOXAPARIN 40 MG/0.4 ML SQ SCH (16:01)
[2021-05-11] MEDS: IPRATROPIUM BROM 0.5MG/2.5ML NEB SCH ×4 (01:12→19:30)
[2021-05-11] MEDS: HYDROCODONE/APAP 10/325 TAB PO PRN ×4 (04:21→22:36)
[2021-05-11 08:00] LABS: Arterial Blood Carboxyhemoglob 1.3 % (0-1.5); Blood Gas Oxyhemoglobin 95.3 % (94-97); Blood O2 Saturation 97.8 % (92-98.5)
[2021-05-11] MEDS: Fluticasone/Umeclidin/Vilanter [Trelegy Ellipta 100-62.5-25] Blst.W.Dev IH SCH (09:00)
[2021-05-11] MEDS: carvediloL 12.5 MG TAB PO SCH ×2 (09:29→16:40)
[2021-05-11] MEDS: GABAPENTIN 300 MG CAP PO SCH ×3 (09:29→21:02)
[2021-05-11] MEDS: ENSURE ENLIVE 237 ML CAN PO SCH ×3 (09:29→21:03)
[2021-05-11] MEDS: levoFLOXacin 500 MG TAB PO SCH (09:29)
[2021-05-11] MEDS: predniSONE 20 MG TAB PO SCH ×2 (09:32→21:02)
[2021-05-11] MEDS: MAGNESIUM HYDROXIDE 8% 30 ML PO PRN (09:36)
[2021-05-11] MEDS: THEOPHYLLINE SR 100 MG TAB PO SCH ×2 (09:40→21:02)
[2021-05-11] MEDS ORDERED: BISACODYL 10 MG RECTAL SUPP PR ONE (12:02)
[2021-05-11] MEDS: ENOXAPARIN 40 MG/0.4 ML SQ SCH (16:39)
[2021-05-11] MEDS ORDERED: ALBUTEROL 2.5 MG/3 ML NEB SOL NEB PRN (17:00)
--- NOTE | 2021-05-11 17:04 | P.PN ---
Subjective Date of Service: 05/11/21 Primary Care Provider: Delicia Chief Complaint: Pneumonia/ Reps failure Subjective: Improving ( states she is too weak to go home - he won't be able to adequately care for her) Review of Systems 10-point ROS is otherwise unremarkable Physical Examination - Vital Signs Temperature: 98.1 F Blood Pressure: 97/53 Pulse: 71 Respirations: 18 Pulse Ox (%): 97 Assessment & Plan Physician Review Additional Text: Physical Exam General: AAOx3, thin, frail appearing, NAD HEENT: PERRL, normal conjunctiva Respiratory: diminished bilaterally at bases, on 2NC Cardiovascular: no edema, Regular rate/rhythm Gastrointestinal: soft, nontender, nondistended teran in place Problem List acute hypoxemic respiratory failure with hypercarbia secondary to pneumonia and COPD exacerbation Acute on chronic COPD exacerbation, on chronic O2 at home T8 compression fracture w/ ~40% loss of height, non-acute HTN chronic back pain chronic CHF metabolic encephalopathy, resolved constipation -continue telemetry -continue levaquin for pneumonia -pulm consulted given h/o COPD and hypercapnia, NIV ordered for home -ABG improved with BIPAP. placed on nasal cannula during day since 05/06; has not been wearing BIPAP at night the last 2-3 nights, suspect hypercapnia leading to patient's decline -improved after wearing BIPAP -hypertensive, restarted home meds 05/05, PRN hydralazine -restarted home pain medication - norco and gabapentin - [employer] reviewed, no red flags, chronic medications -pain improved -set up with palliative care with [facility], however and patient changes their minds - wanted to go use their previous [facility] services -changed their minds again and want SNF -give miralax, suppository Code: DNR Dispo: anticipate dc to SNF in next few days when ready delayed now due to family changing their preference. Time Spent Managing Pts Care (In Minutes): 35
[2021-05-11] MEDS: DOCUSATE NA/SENNA CONC 1 TAB PO PRN (21:01)
[2021-05-12] MEDS: IPRATROPIUM BROM 0.5MG/2.5ML NEB SCH ×4 (01:17→20:00)
[2021-05-12] MEDS: HYDROCODONE/APAP 10/325 TAB PO PRN ×4 (04:04→20:26)
[2021-05-12 06:05] LABS: BUN Blood Urea Nitrogen 33 mg/dL (7-18); Bicarbonate 39 mmol/L (21-32); Glucose Level 140 mg/dL (74-106); Magnesium 2.6 mg/dL (1.8-2.4); Potassium 4.4 mmol/L (3.5-5.1); Sodium Level 138 mmol/L (136-145)
[2021-05-12] MEDS: Fluticasone/Umeclidin/Vilanter [Trelegy Ellipta 100-62.5-25] Blst.W.Dev IH SCH (09:00)
[2021-05-12] MEDS: levoFLOXacin 500 MG TAB PO SCH (09:22)
[2021-05-12] MEDS: carvediloL 12.5 MG TAB PO SCH ×2 (09:22→17:01)
[2021-05-12] MEDS: GABAPENTIN 300 MG CAP PO SCH ×3 (09:22→20:27)
[2021-05-12] MEDS: THEOPHYLLINE SR 100 MG TAB PO SCH ×2 (09:22→20:26)
[2021-05-12] MEDS: predniSONE 20 MG TAB PO SCH (09:22)
[2021-05-12] MEDS: ENSURE ENLIVE 237 ML CAN PO SCH ×3 (09:23→20:27)
[2021-05-12] MEDS: POLYETHYL GLY 3350 17 GM/DOSE PO ONE ×2 (10:34→11:00)
[2021-05-12] MEDS ORDERED: BISACODYL 10 MG RECTAL SUPP PR ONE (11:00)
--- NOTE | 2021-05-12 14:47 | P.PN ---
Subjective Date of Service: 05/12/21 Primary Care Provider: Delicia Chief Complaint: Pneumonia/ Reps failure Patient states her breathing is better today. She is maintained on 3 L of oxygen by nasal cannula. She is using BiPAP during sleep. She is complaining of back pain. Physical Examination - Vital Signs Temperature: 99.7 F Blood Pressure: 140/63 Pulse: 66 Respirations: 18 Pulse Ox (%): 98 - Physical Exam General: In no apparent distress, Oriented x3, Other HEENT: Other (Oxygen by nasal cannula) Neck: JVD not distended Respiratory: Diminished, Expiratory wheezes (Bilateral) Cardiovascular: No edema, Regular rate/rhythm, Normal S1 S2 Gastrointestinal: Soft and benign, Non-distended, No tenderness Musculoskeletal: No swelling Integumentary: No rashes Neurological: Normal strength at 5/5 x4 extr Assessment And Plan Physician Review Additional Text: Problem List acute hypoxemic respiratory failure with hypercarbia secondary to pneumonia and COPD exacerbation Acute on chronic COPD exacerbation, on chronic O2 at home T8 compression fracture w/ ~40% loss of height, non-acute HTN chronic back pain chronic CHF metabolic encephalopathy, resolved constipation Plan: -continue levaquin for pneumonia -pulm consulted given h/o COPD and hypercapnia, NIV ordered for home -ABG improved with BIPAP. placed on nasal cannula during day since 05/06; has not been wearing BIPAP at night the last 2-3 nights, suspect hypercapnia leading to patient's decline. She is also tolerating oxygen by nasal cannula. -hypertensive, restarted home meds 05/05, PRN hydralazine -continue norco and gabapentin. -patient declines palliative care. Patient and requesting for skilled rehab. -miralax, suppository p.r.n. for constipation. Code: DNR Dispo: SNF.
[2021-05-12] MEDS ORDERED: MELATONIN 3 MG TABLET PO PRN (14:51)
[2021-05-12] MEDS: ENOXAPARIN 40 MG/0.4 ML SQ SCH (17:00)
[2021-05-12] MEDS: ACETAMINOPHEN 500 MG TAB PO PRN (17:01)
[2021-05-13] MEDS: IPRATROPIUM BROM 0.5MG/2.5ML NEB SCH ×4 (02:00→19:40)
[2021-05-13] MEDS: HYDROCODONE/APAP 10/325 TAB PO PRN ×3 (02:10→18:44)
[2021-05-13 03:26] VITALS: O2SAT 98
[2021-05-13] MEDS: MORPHINE 4 MG/ML SYR IV PRN ×2 (05:33→15:38)
[2021-05-13 06:16] LABS: Absolute Lymphocytes (CBC) 1.7 K/uL (0.7-4.9); Basophils % 0.5 % (0-1.3); Hematocrit 27.3 % (36.0-45.0); Lymphocytes % 22.2 % (15.3-44.8); MPV 6.6 fL (7.6-11.3); RBC Red Blood Cell Count 3.07 M/uL (3.86-4.86)
[2021-05-13 06:27] LABS: BUN Blood Urea Nitrogen 29 mg/dL (7-18); Bicarbonate 39 mmol/L (21-32); Glucose Level 85 mg/dL (74-106); Potassium 4.2 mmol/L (3.5-5.1); Sodium Level 140 mmol/L (136-145)
[2021-05-13] MEDS: Fluticasone/Umeclidin/Vilanter [Trelegy Ellipta 100-62.5-25] Blst.W.Dev IH SCH (08:55)
[2021-05-13] MEDS: predniSONE 20 MG TAB PO SCH (08:55)
[2021-05-13] MEDS: carvediloL 12.5 MG TAB PO SCH ×2 (08:55→18:15)
[2021-05-13] MEDS: PANTOPRAZOLE 40MG TABLET PO SCH (08:56)
[2021-05-13] MEDS: GABAPENTIN 300 MG CAP PO SCH ×3 (08:57→20:42)
[2021-05-13] MEDS: levoFLOXacin 500 MG TAB PO SCH (08:57)
[2021-05-13] MEDS: VITAMIN D 1000 UNIT TAB PO SCH (08:59)
[2021-05-13] MEDS: THEOPHYLLINE SR 100 MG TAB PO SCH ×2 (08:59→20:42)
[2021-05-13] MEDS: ENSURE ENLIVE 237 ML CAN PO SCH ×3 (09:01→20:43)
[2021-05-13 10:00] LABS: Blood Morphology Comment NOTED (NOT SEEN); Platelet Estimate ADEQ; White Blood Cell Scan OK (OK)
[2021-05-13] MEDS ORDERED: TRAZODONE 50 MG TABLET PO PRN (13:27)
--- NOTE | 2021-05-13 13:32 | P.PN ---
Subjective Date of Service: 05/13/21 Primary Care Provider: Delicia Chief Complaint: Pneumonia/ Reps failure Patient complaining of poor sleep. She is maintained on 3 L of oxygen by nasal cannula. She is using BiPAP during sleep. Physical Examination - Vital Signs Temperature: 98.2 F Blood Pressure: 118/55 Pulse: 67 Respirations: 18 Pulse Ox (%): 98 - Physical Exam General: Alert, In no apparent distress HEENT: Mucous membr. moist/pink Neck: Other (Oxygen by nasal cannula) Respiratory: Diminished (Bilateral), Crackles/rales (Coarse crackles bilateral lungs.) Cardiovascular: No edema, Regular rate/rhythm, Normal S1 S2 Gastrointestinal: Normal bowel sounds, Soft and benign, Non-distended Musculoskeletal: No swelling Integumentary: No rashes Neurological: Normal strength at 5/5 x4 extr Assessment And Plan Physician Review Additional Text: Problem List acute hypoxemic respiratory failure with hypercarbia secondary to pneumonia and COPD exacerbation Acute on chronic COPD exacerbation, on chronic O2 at home T8 compression fracture w/ ~40% loss of height, non-acute HTN chronic back pain chronic CHF metabolic encephalopathy, resolved constipation Plan: -continue levaquin for pneumonia -pulm is following, NIV ordered for home -weaned off continuous BiPAP, patient tolerated oxygen by nasal. She is using BiPAP during sleep. -continue home medications for hypertension, PRN hydralazine -continue norco and gabapentin. -patient declines palliative care. Patient and requesting for skilled rehab. -miralax, suppository p.r.n. for constipation. -stable for discharge to SNF. Code: DNR Dispo: SNF.
[2021-05-13] MEDS: ENOXAPARIN 40 MG/0.4 ML SQ SCH (17:00)
[2021-05-14] MEDS: HYDROCODONE/APAP 10/325 TAB PO PRN ×3 (00:42→13:21)
[2021-05-14] MEDS: IPRATROPIUM BROM 0.5MG/2.5ML NEB SCH ×3 (02:00→14:39)
[2021-05-14 06:18] LABS: Absolute Lymphocytes (CBC) 1.8 K/uL (0.7-4.9); Basophils % 0.5 % (0-1.3); Hematocrit 27.1 % (36.0-45.0); Lymphocytes % 14.9 % (15.3-44.8); MPV 7.1 fL (7.6-11.3); RBC Red Blood Cell Count 3.05 M/uL (3.86-4.86)
[2021-05-14 06:27] LABS: Potassium 4.3 mmol/L (3.5-5.1); Sodium Level 138 mmol/L (136-145)
[2021-05-14 06:32] LABS: BUN Blood Urea Nitrogen 27 mg/dL (7-18); Bicarbonate 40 mmol/L (21-32); Glucose Level 80 mg/dL (74-106)
[2021-05-14] MEDS: ENSURE ENLIVE 237 ML CAN PO SCH (09:00)
[2021-05-14] MEDS ORDERED: BISACODYL 10 MG RECTAL SUPP PR ONE ×2 (10:08→10:16)
[2021-05-14] MEDS: MAGNESIUM HYDROXIDE 8% 30 ML PO PRN (10:44)
[2021-05-14] MEDS: ACETAMINOPHEN 500 MG TAB PO PRN (10:49)
[2021-05-14] MEDS: DOCUSATE NA/SENNA CONC 1 TAB PO PRN (10:50)
[2021-05-14] MEDS: carvediloL 12.5 MG TAB PO SCH (10:53)
[2021-05-14] MEDS: predniSONE 20 MG TAB PO SCH (10:53)
[2021-05-14] MEDS: VITAMIN D 1000 UNIT TAB PO SCH (10:53)
[2021-05-14] MEDS: PANTOPRAZOLE 40MG TABLET PO SCH (10:54)
[2021-05-14] MEDS: levoFLOXacin 500 MG TAB PO SCH (10:54)
[2021-05-14] MEDS: GABAPENTIN 300 MG CAP PO SCH (10:54)
[2021-05-14 12:50] VITALS: BP 137/59; TEMP 98.8
--- NOTE | 2021-05-14 13:21 | P.DS ---
Admission Date: 05/04/21 Discharge Date: 05/14/21 Primary Care Provider: Delicia Disposition: TRANSFER TO CUSTODIAL Discharge Condition: FAIR Reason for Admission: Pneumonia/ Reps failure - Problems (1) Respiratory failure with hypercapnia Current Visit: Yes Status: Acute Qualifiers: Chronicity: chronic Qualified Code(s): J96.12 - Chronic respiratory failure with hypercapnia (2) Chronic thoracic back pain Current Visit: No Status: Acute (3) Metabolic encephalopathy Current Visit: Yes Status: Acute (4) Functional constipation Current Visit: Yes Status: Acute (5) Hypertension Current Visit: Yes Status: Chronic Qualifiers: Hypertension type: primary hypertension Qualified Code(s): I10 - Essential (primary) hypertension Brief History of Present Illness: 86-year-old woman with a history of advanced COPD, CHF, hypertension, chronic back pain presented to the emergency department due to worsening respiratory condition. Patient reported progressive shortness of breath. Also reported back pain. Chest x-ray done in the emergency department demonstrated pneumonia which is confirmed on the CT scan. COVID 19 test negative. Patient had leukocytosis. She was hypoxic and was placed on BiPAP therapy and admitted for further management. Hospital Course: Patient admitted to the medical floor and started on IV antibiotics. He was also placed on scheduled bronchodilators and steroids. Patient seen and evaluated by pulmonary who recommended outpatient NIV which has been ordered. Patient respiratory condition improved with treatment, mental status cleared and she is currently at baseline. She is tolerating oxygen by nasal cannula with good oxygen saturation. Patient uses BiPAP during sleep. Patient declined hospice and opted for skilled rehab. She has clinically improved and deemed stable for discharge. Vital Signs/Physical Exam: Temp Pulse Resp BP Pulse Ox 98.8 F 72 20 137/59 L 95 05/14/21 12:00 05/14/21 12:00 05/14/21 12:00 05/14/21 12:00 05/14/21 12:00 General: Alert, In no apparent distress, Oriented x3 HEENT: Mucous membr. moist/pink Neck: JVD not distended Respiratory: Crackles/rales (Bilateral coarse crackles) Cardiovascular: No edema, Regular rate/rhythm, Normal S1 S2 Gastrointestinal: Normal bowel sounds, Soft and benign, Non-distended, No tenderness Musculoskeletal: No swelling Integumentary: No rashes Neurological: Normal strength at 5/5 x4 extr Laboratory Data at Discharge: WBC 11.70 K/uL (4.3-10.9) H D 05/14/21 05:47 Hgb 9.1 g/dL (12.0-15.0) L 05/14/21 05:47 Hct 27.1 % (36.0-45.0) L 05/14/21 05:47 Plt Count 414 K/uL (152-406) H 05/14/21 05:47 PT 10.5 SECONDS (9.5-12.5) 05/03/21 21:17 INR 0.91 05/03/21 21:17 Sodium 138 mmol/L (136-145) 05/14/21 05:47 Potassium 4.3 mmol/L (3.5-5.1) 05/14/21 05:47 BUN 27 mg/dL (7-18) H 05/14/21 05:47 Creatinine 0.42 mg/dL (0.55-1.3) L 05/14/21 05:47 Glucose 80 mg/dL (74-106) 05/14/21 05:47 Magnesium 2.6 mg/dL (1.8-2.4) H 05/12/21 05:31 Total Bilirubin 0.4 mg/dL (0.2-1.0) 05/03/21 21:17 AST 19 U/L (15-37) 05/03/21 21:17 ALT 21 U/L (12-78) 05/03/21 21:17 Alkaline Phosphatase 80 U/L (45-117) 05/03/21 21:17 Home Medications: Carvedilol [Coreg] 12.5 mg PO BIDWM 05/15/20 Gabapentin 300 mg PO TID 05/15/20 Pantoprazole [Protonix Tab*] 40 mg PO DAILY 05/15/20 Cholecalciferol (Vitamin D3) [Vitamin D3] 1,000 unit PO DAILY 06/26/20 Fluticasone/Umeclidin/Vilanter [Trelegy Ellipta 100-62.5-25] 1 each IH DAILY 06/26/20 Furosemide [Lasix] 20 mg PO DAILY 06/26/20 Melatonin [Melatonin*] 3 mg PO BEDTIME PRN PRN #30 tablet 07/01/20 Potassium Gluconate [Potassium] 99 mg PO DAILY 05/05/21 Albuterol Neb [Proventil 0.083% Neb Soln] 2.5 mg NEB Q4H PRN amp 05/14/21 Ensure Enlive 237 ml PO TID can 05/14/21 Ipratropium Neb [Atrovent*] 0.5 mg NEB [id number] amp 05/14/21 Mag Hydroxide 8% [Milk Of Magnesia*] 30 ml PO DAILYPRN PRN ucup 05/14/21 Oxycodone HCl 10 mg PO QID PRN #16 tablet 05/14/21 Polyethylene Glycol 3350 [Miralax] 17 gm PO DAILY PRN #30 powd.pack 05/14/21 Theophylline [Nate-Dur*] 200 mg PO BID tab 05/14/21 Trazodone [Desyrel*] 50 mg PO BEDTIME PRN PRN tablet 05/14/21 levoFLOXacin [Levaquin*] 500 mg PO DAILY #2 tab 05/14/21 predniSONE [Prednisone] 5 mg PO DAILY #60 tablet 05/14/21 New Medications: levoFLOXacin [Levaquin*] 500 mg PO DAILY #2 tab Polyethylene Glycol 3350 [Miralax] 17 gm PO DAILY PRN #30 powd.pack PRN Reason: Constipation Oxycodone HCl 10 mg PO QID PRN #16 tablet PRN Reason: PAIN predniSONE [Prednisone] 5 mg PO DAILY #60 tablet Diet: AHA Activity: Fall precautions Followup: Ankur Nesbitt MD [Primary Care Provider] - Time spent managing pt's care (in minutes): 38
== END 2021-05-14 15:12 | DRG 190 ==
LOC: ER 13:19 → ERHOLD 05-04 05:17 → 2ND 05-04 18:18
PROVIDERS: ADMIT Internal Medicine; ATTEND Internal Medicine
PROC: 5A09357 Assistance with Respiratory Ventilation, Less than 24 Consecutive Hours, Continuous Positive Airway Pressure (ICD-10-PCS; principal; 2021-05-04)
DX: J44.0 Chronic obstructive pulmonary disease with (acute) lower respiratory infection (principal); J18.9 Pneumonia, unspecified organism; J96.02 Acute respiratory failure with hypercapnia; J96.01 Acute respiratory failure with hypoxia; G93.41 Metabolic encephalopathy; S22.069A Unspecified fracture of T7-T8 vertebra, initial encounter for closed fracture; I50.32 Chronic diastolic (congestive) heart failure; J44.1 Chronic obstructive pulmonary disease with (acute) exacerbation; Z99.81 Dependence on supplemental oxygen; I11.0 Hypertensive heart disease with heart failure; G89.29 Other chronic pain; Z66 Do not resuscitate; K59.00 Constipation, unspecified; Z20.822 Contact with and (suspected) exposure to COVID-19
CPT/HCPCS: 36415; 51702; 71045; 71275; 80048; 80076; 81003; 81015; 82805; 83605; 83735; 83880; 84145; 84484; 85025; 85027; 85610; 86140; 87040; 87070; 87077; 87186; 87205; 93005; 94660; 94760; 97112; 97161; 97530; 99283; 99285; J0360; J0696; J1200; J1650; J2405; J3010; J7030; J7512; Q9967; U0003

== ENCOUNTER 2022-02-13 11:32 | Emergency (ER) | payer OTHER ==
--- OUTSIDE RECORDS SUMMARY | 2022-02-13 11:35 | XMS REPORT | Continuity of Care Document ---
:1935 Author Organization [facility] t Address [address] [place] [address] Care Team Providers Name Role Phone Delicia LOPEZ Primary Care Physician Erin GURROLA Attending Clinician Doctor Unassigned, Name Attending Clinician Unavailable ERIN Attending Clinician Unavailable ERIN Attending Clinician Unavailable Matt SINGH Attending Clinician Theodore Mendez DO Attending Clinician Darrius LOPEZ S Attending Clinician Gregoria LOPEZ Attending Clinician Cayden VERDUZCO Attending Clinician Rodney LOPEZ Attending Clinician Pob, Lab Main Attending Clinician Unavailable Gregoria LOPEZ Admitting Clinician Rodney LOPEZ Admitting Clinician Payers Payer Name Policy Type Policy Number Effective Date Expiration Date S ource Problems Condition Condition Condition Status Onset Resolution Last Treating Co mments Source Name Details Category Date Date Treatment Clinician Date COPD COPD Disease Active Univers (chronic (chronic 8-17 [place]y of obstructiv [place] e e 00 Medical pulmonary pulmonary Bran ch disease) disease) E46 E46 Disease Active 2019-10 Univers Unspecifie Unspecifie 1-05 it y of d severe d severe 00:00: [place] protein-ca protein-ca 00 Me gauri ribeiro Branch malnutriti malnutriti on on Anemia Anemia Disease Active 2019-10 Univers 1-03 ity of 00:00: [place] 00 Medical Branch Pneumonia Pneumonia Disease Active 2019-10 Uni vers due to due to 1-03 [place]y of infectious infectious [place] organism organism 00 Medica l Branch E44.0 E44.0 Disease Active 2019-10 Univers Moderate Moderate 1-02 ity of protein protein 00:00: [place] calorie calorie 00 Medical malnutriti malnutriti Br anch on on Dyspnea Dyspnea Disease Active 2019-10 Univers 0-31 ity of 00:00: [place] 00 Medical Branch 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 0-30 it y of anemia anemia 00:00: [place] 00 Medical Branch Essential Essential Disease Active 2017-10 Uni vers hypertensi hypertensi 2-02 it y of on on 00:00: [place] 00 Medical Branch Cigarette Cigarette Disease Active 2017-10 Uni vers nicotine nicotine 2-02 ity of dependence dependence [place] without without 00 Medical complicati complicati Br anch on on 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 00:00: [place] disease disease 00 Medical Branch Elevated Elevated Disease Active 2017-10 Unive rs troponin I troponin I 2- it y of level level 00:00: [place] 00 Medical Branch Elevated Elevated Disease Active 2017-10 Unive rs brain brain 2-02 ity of natriureti natriureti 00:[place] c peptide c peptide 00 Medi josette (BNP) (BNP) Branch level level 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 2 00:00: [place] 00 Medical Branch Acute on Acute on Disease Active 2017-10 Unive rs chronic chronic 2-02 [place] of diastolic diastolic 00:[place] heart heart 00 Medical failure failure Branch DEAN DEAN Disease Active 2017-10 Univers (dyspnea (dyspnea 2-01 ity of on on 00:00: [place] exertion) exertion) 00 Medi josette Branch Bilateral Bilateral Disease Active 2017-10 Uni vers leg edema leg edema 2-01 ity of 00:00: [place] 00 Medical Branch Hyponatrem Hyponatrem Disease Active 2017-10 U nivers ia ia 0-23 ity of 00:00: [place] 00 Medical Branch No known No known Disease Metho di active active st problems problems Hospit a l Allergies, Adverse Reactions, Alerts Allergy Allergy Status Severity Reaction(s) Onset Inactive Treating Comm ents Source Name Type Date Date Clinician Penicill Propensi Active Unknown - 2019-10 Uni vers ins ty to See comments 0-30 ity of adverse 00:00: [place] reaction 00 Medical s Branch PENICILL Drug Active Unknown-Cmnt 2019-10 Un rubio INS Class 0-30 ity of 00:00: [place] 00 Medical Branch Clindamy Propensi Active Unknown - Pt states Univers cory ty to See comments 6-19 she was ity of adverse 00:00: told not [place] reaction 00 to take Medical s by PCP Branch Codeine Propensi Active Unknown - Childhood U nivers ty to See comments 6- allergy ity of adverse 00:00: [place] reaction 00 Medical s Branch CLINDAMY DRUG Active Unknown-Cmnt Un rubio CORY INGREDI 6-19 ity of 00:00: [place] 00 Medical Branch CODEINE DRUG Active Unknown-Cmnt Uni vers INGREDI 6-19 ity of 00:00: [place] 00 Medical Branch Clindamy Propensi Active Other (See Pt states Methodi cory ty to Comments) 6-[address] adverse 00:00: told not Hospita reaction 00 to take l s to by PCP drug Codeine Propensi Active Other (See Childhood Methodi ty to Comments) 6- allergy st adverse 00:00: Hospita reaction 00 l s to drug Social History Social Habit Start Date Stop Date Quantity Comments Source Exposure to Not sure [facility] SARS-CoV-2 (event) [facility] Alcohol intake 2021-12-17 2021-12-17 Current University of 00:00:00 00:00:00 non-drinker of [facility] alcohol Branch (finding) Cigarettes smoked 2019-01-05 2019-01-05 Univers ity of current (pack per 00:00:00 00:00:00 ) - Reported Branch Cigarette 2019-01-05 2019-01-05 University of pack-years 00:00:00 00:00:00 [facility] Tobacco use and 2019-01-05 2019-01-05 Never used Universit y of exposure 00:00:00 00:00:00 [facility] History of tobacco 2018-09-02 Cigarette Smoker University of use 00:00:00 [facility] Sex [birth year] Universit y of 00:00:00 00:00:00 [facility] Smoking Status Start Date Stop Date Source Former smoker 2019-01-05 00:00:00 2019-01-05 00:00:00 Universi ty of [facility] Current every day 2018-04-18 00:00:00 [facility] smoker Medications Ordered Filled Start Stop Current Ordering Indication Dosage Frequency Signature Comments Components Source Medication Medication Date Date Medication? Clinician (SIG) Name Name doxycycline Yes [id number] 100mg Take 1 Univers hyclate 100 4-18 capsule by it y of mg capsule 00:00: mouth [place] 00 every 12 Medical (twelve) Branch hours. doxycycline 2021- Yes [id number] 100mg Take 1 Univers hyclate 100 4-18 04-26 capsule by i ty of mg capsule 00:00: 04:59 mouth [place] 00 :00 every 12 Medical (twelve) Branch hours for 7 days. fluticasone Yes [id number] 1{puff} Inhale 1 Univers -umeclidin- 3-17 Puff ity of vilanter 00:00: daily. [place] (TRELEGY 00 Medical ELLIPTA) Branch 100-62.5-25 mcg DsDv fluticasone Yes [id number] 1{puff} Inhale 1 Univers -umeclidin- 3-17 Puff ity of vilanter 00:00: daily. [place] (TRELEGY 00 Medical ELLIPTA) Branch 100-62.5-25 mcg DsDv fluticasone Yes [id number] 1{puff} Inhale 1 Univers -umeclidin- 3-17 Puff ity of vilanter 00:00: daily. [place] (TRELEGY 00 Medical ELLIPTA) Branch 100-62.5-25 mcg DsDv fluticasone Yes [id number] 1{puff} Inhale 1 Univers -umeclidin- 3-17 Puff ity of vilanter 00:00: daily. [place] (TRELEGY 00 Medical ELLIPTA) Branch 100-62.5-25 mcg DsDv lidocaine 5 Yes [id number] 1{patch Apply 1 Univers % (700 8-25 } Patch to ity of mg/patch) 00:00: area(s) [place] patch 00 daily. Medical Branch lidocaine 5 2020- Yes [id number] 1{patch Apply 1 Univers % (700 8-25 } Patch to ity of mg/patch) 00:00: area(s) [place] patch 00 daily. Medical Branch lidocaine 5 Yes [id number] 1{patch Apply 1 Univers % (700 8-25 } Patch to ity of mg/patch) 00:00: area(s) [place] patch 00 daily. Medical Branch lidocaine 5 Yes [id number] 1{patch Apply 1 Univers % (700 8-25 } Patch to ity of mg/patch) 00:00: area(s) [place] patch 00 daily. Medical Branch tiotropium 2021- No [id number] 18ug Inhale 1 Univers 18 mcg 8-25 03-17 capsule ity of inhalation 00:00: 00:00 [place]. [place] :[place] tiotropium 2021- No [id number] 18ug Inhale 1 Univers 18 mcg 8-25 03-17 capsule ity of inhalation 00:00: 00:00 [place]. [place] :[place] Branch acetaminoph Yes 650mg Take 650 U nivers en 8-24 mg by ity of (TYLENOL) 00:00: mouth [place] 325 mg Cap 00 every 4 Medica l (four) Branch hours as needed for Pain (scale 4-6) or Fever. gabapentin Yes 300mg Take 1 Univ ers 300 mg 8-24 capsule by ity of capsule 00:00: mouth 3 [place] 00 (three) Medical times Branch daily. loratadine 0 Yes 10mg Take 1 Unive rs (CLARITIN) 8-24 tablet by ity of 10 mg 00:00: mouth [place] tablet 00 daily. Medical Branch ipratropium Yes [id number] 3mL Inhale 3 Univers -albuteroL 8-24 mL 4 ity of 0.5 mg-3 00:00: (four) [place] mg(2.5 mg 00 times Medical base)/3 mL daily as Branc h nebulizer needed for solution Wheezing. albuterol Yes 2{puff} Inhale 2 U nivers (PROAIR 8-24 Puffs ity of HFA) 90 00:00: every 6 [place] mcg/actuati 00 (six) Medical on inhaler hours. Branch Cholecalcif Yes Take by Un rubio argenis, 8-24 mouth ity of Vitamin D3, 00:00: weekly. [place] (VITAMIN 00 Medical D3) 125 mcg Branch (5,000 unit) tablet docusate Yes 100mg Take 1 Univer s (COLACE) 8-24 capsule by ity o f 100 mg 00:00: mouth [place] capsule 00 daily. Medical Branch ferrous Yes 325mg Take 1 Univers sulfate 325 8-24 tablet by ity of mg (65 mg 00:00: mouth [place] iron) EC 00 daily with Medic al tablet breakfast. Branch foLIC acid Yes 1mg Take 1 Unive rs 1 mg tablet 8-24 tablet by ity of 00:00: mouth [place] 00 daily. Medical Branch KCL 10 mEq Yes 10meq Take 1 Univ ers tablet 8-24 tablet by ity of 00:00: mouth [place] 00 daily. Medical Branch melatonin 3 Yes 3mg Take 1 Univ ers mg tablet 8-24 tablet by ity o f 00:00: mouth at [place] 00 bedtime. Medical Branch pantoprazol Yes [id number] 40mg Take 1 Univers e 40 mg EC 8-24 tablet by ity of tablet 00:00: mouth [place] 00 daily. Medical Branch theophyllin Yes 200mg Take 1 Uni vers e (MIKKI-24) 8-24 capsule by it y of 200 mg 24 00:00: mouth [place] hr capsule 00 daily. Medical Branch vitamin Yes [id number] 1000ug Take 1 Un rubio B-12 1,000 8-24 tablet by ity of mcg tablet 00:00: mouth [place] 00 daily. Medical Branch polyethylen Yes 17g Take 17 g U nivers e glycol 8-24 by mouth ity of 3350 00:00: daily. [place] (MIRALAX) 00 Medical 17 Branch gram/dose powder prednisoLON Yes 10mg Take 2 Univ ers E 5 mg 8-24 tablets by ity of tablet 00:00: mouth [place] 00 daily. Medical Branch HYDROcodone Yes 1{tbl} Take 1 Un rubio -acetaminop 8-24 tablet by ity of hen 10-325 00:00: mouth [place] mg tablet 00 every 6 Medical (six) Branch hours. furosemide 0 Yes 20mg Take 1 Unive rs 20 mg 8-24 tablet by ity of tablet 00:00: mouth [place] 00 daily. Medical Branch carvediloL Yes 12.5mg Take 1 Uni vers 12.5 mg 8-24 tablet by ity of tablet 00:00: mouth 2 [place] 00 (two) Medical times Branch daily with meals. acetaminoph Yes 650mg Take 650 U nivers en 8-24 mg by ity of (TYLENOL) 00:00: mouth [place] 325 mg Cap 00 every 4 Medica l (four) Branch hours as needed for Pain (scale 4-6) or Fever. gabapentin Yes 300mg Take 1 Univ ers 300 mg 8-24 capsule by ity of capsule 00:00: mouth 3 [place] 00 (three) Medical times Branch daily. loratadine Yes 10mg Take 1 Unive rs (CLARITIN) 8-24 tablet by ity of 10 mg 00:00: mouth [place] tablet 00 daily. Medical Branch ipratropium Yes [id number] 3mL Inhale 3 Univers -albuteroL 8-24 mL 4 ity of 0.5 mg-3 00:00: (four) [place] mg(2.5 mg 00 times Medical base)/3 mL daily as Branc h nebulizer needed for solution Wheezing. albuterol Yes 2{puff} Inhale 2 U nivers (PROAIR 8-24 Puffs ity of HFA) 90 00:00: every 6 [place] mcg/actuati 00 (six) Medical on inhaler hours. Branch Cholecalcif Yes Take by Un rubio argenis, 8-24 mouth ity of Vitamin D3, 00:00: weekly. [place] as (VITAMIN 00 Medical D3) 125 mcg Branch (5,000 unit) tablet docusate Yes 100mg Take 1 Univer s (COLACE) 8-24 capsule by ity o f 100 mg 00:00: mouth [place] capsule 00 daily. Medical Branch ferrous Yes 325mg Take 1 Univers sulfate 325 8-24 tablet by ity of mg (65 mg 00:00: mouth [place] iron) EC 00 daily with Medic al tablet breakfast. Branch foLIC acid Yes 1mg Take 1 Unive rs 1 mg tablet 8-24 tablet by ity of 00:00: mouth [place] 00 daily. Medical Branch KCL 10 mEq Yes 10meq Take 1 Univ ers tablet 8-24 tablet by ity of 00:00: mouth [place] 00 daily. Medical Branch melatonin 3 Yes 3mg Take 1 Univ ers mg tablet 8-24 tablet by ity o f 00:00: mouth at [place] 00 bedtime. Medical Branch pantoprazol Yes [id number] 40mg Take 1 Univers e 40 mg EC 8-24 tablet by ity of tablet 00:00: mouth [place] 00 daily. Medical Branch theophyllin Yes 200mg Take 1 Uni vers e (MIKKI-24) 8-24 capsule by it y of 200 mg 24 00:00: mouth [place] hr capsule 00 daily. Medical Branch vitamin Yes [id number] 1000ug Take 1 Un rubio B-12 1,000 8-24 tablet by ity of mcg tablet 00:00: mouth [place] 00 daily. Medical Branch polyethylen Yes 17g Take 17 g U nivers e glycol 8-24 by mouth ity of 3350 00:00: daily. [place] (MIRALAX) 00 Medical 17 Branch gram/dose powder prednisoLON Yes 10mg Take 2 Univ ers E 5 mg 8-24 tablets by ity of tablet 00:00: mouth [place] 00 daily. Medical Branch HYDROcodone Yes 1{tbl} Take 1 Un rubio -acetaminop 8-24 tablet by ity of hen 10-325 00:00: mouth [place] mg tablet 00 every 6 Medical (six) Branch hours. furosemide Yes 20mg Take 1 Unive rs 20 mg 8-24 tablet by ity of tablet 00:00: mouth [place] 00 daily. Medical Branch carvediloL Yes 12.5mg Take 1 Uni vers 12.5 mg 8-24 tablet by ity of tablet 00:00: mouth 2 [place] 00 (two) Medical times Branch daily with meals. acetaminoph Yes 650mg Take 650 U nivers en 8-24 mg by ity of (TYLENOL) 00:00: mouth [place] 325 mg Cap 00 every 4 Medica l (four) Branch hours as needed for Pain (scale 4-6) or Fever. gabapentin Yes 300mg Take 1 Univ ers 300 mg 8-24 capsule by ity of capsule 00:00: mouth 3 [place] 00 (three) Medical times Branch daily. loratadine Yes 10mg Take 1 Unive rs (CLARITIN) 8-24 tablet by ity of 10 mg 00:00: mouth [place] tablet 00 daily. Medical Branch ipratropium Yes [id number] 3mL Inhale 3 Univers -albuteroL 8-24 mL 4 ity of 0.5 mg-3 00:00: (four) [place] mg(2.5 mg 00 times Medical base)/3 mL daily as Branc h nebulizer needed for solution Wheezing. albuterol Yes 2{puff} Inhale 2 U nivers (PROAIR 8-24 Puffs ity of HFA) 90 00:00: every 6 [place] mcg/actuati 00 (six) Medical on inhaler hours. Branch Cholecalcif Yes Take by Un rubio argenis, 8-24 mouth ity of Vitamin D3, 00:00: weekly. [place] (VITAMIN 00 Medical D3) 125 mcg Branch (5,000 unit) tablet docusate Yes 100mg Take 1 Univer s (COLACE) 8-24 capsule by ity o f 100 mg 00:00: mouth [place] capsule 00 daily. Medical Branch ferrous Yes 325mg Take 1 Univers sulfate 325 8-24 tablet by ity of mg (65 mg 00:00: mouth [place] iron) EC 00 daily with Medic al tablet breakfast. Branch foLIC acid Yes 1mg Take 1 Unive rs 1 mg tablet 8-24 tablet by ity of 00:00: mouth [place] 00 daily. Medical Branch KCL 10 mEq Yes 10meq Take 1 Univ ers tablet 8-24 tablet by ity of 00:00: mouth [place] 00 daily. Medical Branch melatonin 3 0 Yes 3mg Take 1 Univ ers mg tablet 8-24 tablet by ity o f 00:00: mouth at [place] 00 bedtime. Medical Branch pantoprazol 0 Yes [id number] 40mg Take 1 Univers e 40 mg EC 8-24 tablet by ity of tablet 00:00: mouth [place] 00 daily. Medical Branch theophyllin Yes 200mg Take 1 Uni vers e (MIKKI-24) 8-24 capsule by it y of 200 mg 24 00:00: mouth [place] hr capsule 00 daily. Medical Branch vitamin Yes [id number] 1000ug Take 1 Un rubio B-12 1,000 8-24 tablet by ity of mcg tablet 00:00: mouth [place] 00 daily. Medical Branch polyethylen Yes 17g Take 17 g U nivers e glycol 8-24 by mouth ity of 3350 00:00: daily. [place] (MIRALAX) 00 Medical 17 Branch gram/dose powder prednisoLON 0 Yes 10mg Take 2 Univ ers E 5 mg 8-24 tablets by ity of tablet 00:00: mouth [place] 00 daily. Medical Branch HYDROcodone 0 Yes 1{tbl} Take 1 Un rubio -acetaminop 8-24 tablet by ity of hen 10-325 00:00: mouth [place] mg tablet 00 every 6 Medical (six) Branch hours. furosemide 0 Yes 20mg Take 1 Unive rs 20 mg 8-24 tablet by ity of tablet 00:00: mouth [place] 00 daily. Medical Branch carvediloL 0 Yes 12.5mg Take 1 Uni vers 12.5 mg 8-24 tablet by ity of tablet 00:00: mouth 2 [place] 00 (two) Medical times Branch daily with meals. acetaminoph 0 Yes 650mg Take 650 U nivers en 8-24 mg by ity of (TYLENOL) 00:00: mouth [place] 325 mg Cap 00 every 4 Medica l (four) Branch hours as needed for Pain (scale 4-6) or Fever. gabapentin 0 Yes 300mg Take 1 Univ ers 300 mg 8-24 capsule by ity of capsule 00:00: mouth 3 [place] 00 (three) Medical times Branch daily. loratadine Yes 10mg Take 1 Unive rs (CLARITIN) 8-24 tablet by ity of 10 mg 00:00: mouth [place] tablet 00 daily. Medical Branch ipratropium Yes [id number] 3mL Inhale 3 Univers -albuteroL 8-24 mL 4 ity of 0.5 mg-3 00:00: (four) [place] mg(2.5 mg 00 times Medical base)/3 mL daily as Branc h nebulizer needed for solution Wheezing. albuterol Yes 2{puff} Inhale 2 U nivers (PROAIR 8-24 Puffs ity of HFA) 90 00:00: every 6 [place] mcg/actuati 00 (six) Medical on inhaler hours. Branch Cholecalcif Yes Take by Un rubio argenis, 8-24 mouth ity of Vitamin D3, 00:00: weekly. [place] (VITAMIN 00 Medical D3) 125 mcg Branch (5,000 unit) tablet docusate Yes 100mg Take 1 Univer s (COLACE) 8-24 capsule by ity o f 100 mg 00:00: mouth [place] capsule 00 daily. Medical Branch ferrous Yes 325mg Take 1 Univers sulfate 325 8-24 tablet by ity of mg (65 mg 00:00: mouth [place] iron) EC 00 daily with Medic al tablet breakfast. Branch foLIC acid Yes 1mg Take 1 Unive rs 1 mg tablet 8-24 tablet by ity of 00:00: mouth [place] 00 daily. Medical Branch KCL 10 mEq Yes 10meq Take 1 Univ ers tablet 8-24 tablet by ity of 00:00: mouth [place] 00 daily. Medical Branch melatonin 3 Yes 3mg Take 1 Univ ers mg tablet 8-24 tablet by ity o f 00:00: mouth at [place] 00 bedtime. Medical Branch pantoprazol Yes [id number] 40mg Take 1 Univers e 40 mg EC 8-24 tablet by ity of tablet 00:00: mouth [place] 00 daily. Medical Branch theophyllin Yes 200mg Take 1 Uni vers e (MIKKI-24) 8-24 capsule by it y of 200 mg 24 00:00: mouth [place] hr capsule 00 daily. Medical Branch vitamin Yes [id number] 1000ug Take 1 Un rubio B-12 1,000 8-24 tablet by ity of mcg tablet 00:00: mouth [place] 00 daily. Medical Branch polyethylen Yes 17g Take 17 g U nivers e glycol 8-24 by mouth ity of 3350 00:00: daily. [place] (MIRALAX) 00 Medical 17 Branch gram/dose powder prednisoLON Yes 10mg Take 2 Univ ers E 5 mg 8-24 tablets by ity of tablet 00:00: mouth [place] 00 daily. Medical Branch HYDROcodone Yes 1{tbl} Take 1 Un rubio -acetaminop 8-24 tablet by ity of hen 10-325 00:00: mouth [place] mg tablet 00 every 6 Medical (six) Branch hours. furosemide Yes 20mg Take 1 Unive rs 20 mg 8-24 tablet by ity of tablet 00:00: mouth [place] 00 daily. Medical Branch carvediloL Yes 12.5mg Take 1 Uni vers 12.5 mg 8-24 tablet by ity of tablet 00:00: mouth 2 [place] 00 (two) Medical times Branch daily with meals. fluticasone 2021- No 1{puff} Inhale 1 Univers -umeclidin- 8- 03-17 Puff ity of vilanter 00:00: 00:00 daily. [place] (TRELEGY 00 :00 Medical ELLIPTA) Branch 100-62.5-25 mcg DsDv fluticasone 2021- No [id number] 1{puff} Inhale 1 Univers propion-chuck -24 03-17 Puff every i ty of meteroL 00:00: 00:00 12 [place] 250-50 00 :00 (twelve) Medical mcg/dose hours. Branch inhalation disk fluticasone 2021- No 1{puff} Inhale 1 Univers -umeclidin- 8-24 03-17 Puff ity of vilanter 00:00: 00:00 daily. [place] (TRELEGY 00 :00 Medical ELLIPTA) Branch 100-62.5-25 mcg DsDv fluticasone 2021- No [id number] 1{puff} Inhale 1 Univers propion-chuck 8-24 03-17 Puff every i ty of meteroL 00:00: 00:00 12 [place] 250-50 00 :00 (twelve) Medical mcg/dose hours. Branch inhalation disk HYDROcodone Yes 1{tbl} Take 1 Me thodi -acetaminop 7-[address] [facility] (NORCO) 23:40: mouth. Hosp gabe 7.5-325 mg 21 l per tablet traMADol Yes [facility] (ULTRAM) 50 7-16 [facility] mg tablet 00:00: [facility]osp[facility] 00 l gabapentin 0 Yes [facility] (NEURONTIN) [facility]-16 [facility] 300 mg 00:00: Hospita capsule 00 l clorazepate Yes Method i (TRANXENE) [...] Hospit a on inhaler 00 l metoprolol Yes [facility] succinate 5-04 st XL 00:00: Hospita (TOPROL-XL) 00 l 50 mg 24 hr tablet Immunizations Ordered Filled Immunization Date Status Comments [facility] Immunization Name Name Influenza Virus 2020-07-06 Completed Universit y of Vaccine 00:00:00 [facility] Influenza Virus 2020-07-06 Completed Universit y of Vaccine 00:00:00 [facility] Influenza Virus 2020-07-06 Completed Universit y of Vaccine 00:00:00 [facility] Influenza Virus 2020-07-06 Completed Universit y of Vaccine 00:00:00 [facility] Influenza High Dose 2019-09-22 Completed Unive rsity of 00:00:00 [facility] Influenza High Dose 2019-09-22 Completed Unive rsity of 00:00:00 [facility] Influenza High Dose 2019-09-22 Completed Unive rsity of 00:00:00 [facility] Influenza High Dose 2019-09-22 Completed Unive rsity of 00:00:00 [facility] PPD (TB) 2019-07-10 Completed University 00:00:00 [facility] PPD (TB) 2019-07-10 Completed University 00:00:00 [facility] PPD (TB) 2019-07-10 Completed University 00:00:00 [facility] PPD (TB) 2019-07-10 Completed University 00:00:00 [facility] Vital Signs Vital Name Observation Time Observation Value Comments Source Systolic blood 2021-12-17 177 mm[Hg] [place] of pressure 19:10:00 [facility] Diastolic blood 2021-12-17 77 mm[Hg] [place] o f pressure 19:10:00 [facility] Heart rate 2021-12-17 77 /min [facility] 19:10:00 [facility] Respiratory rate 2021-12-17 23 /min [facility] 19:06:00 [facility] Body height 2021-12-17 152.4 cm [facility] 19:06:00 [facility] Body weight 2021-12-17 43.092 kg [facility] 19:06:00 [facility] BMI 2021-12-17 18.55 kg/m2 [facility] 19:06:00 [facility] Oxygen saturation 2021-12-17 78 /min with deep [facility] [place] Arterial blood 19:06:00 breaths 94% [facility] by Pulse oximetry [place] Procedures Procedure Date / Time Performed Performing Clinician [facility] HOME HEALTH - OTHER 2022-01-05 05:01:00 Doctor Unassigned, No [facility] [place] Name [facility] Plan of Care Planned Activity Planned Date Details Comments Source Future Scheduled Test 65+ PNEUMOCOCCAL [facility] VACCINE (1 of 2 - PPSV23) [code = 65+ PNEUMOCOCCAL VACCINE (1 of 2 - PPSV23)] Future Scheduled Test COVID-19 VACCINE (1) [facility] [code = COVID-19 VACCINE (1)] Future Scheduled Test SHINGLES VACCINES (#1) [facility] [code = SHINGLES VACCINES (#1)] Future Scheduled Test INFLUENZA VACCINE [code [facility] = INFLUENZA VACCINE] Encounters Start End Encounter Admission Attending Care Care Encounter Source Date/Time Date/Time Type Type Clinicians Facility Department ID [id number] Telephone Erin [facility] [id number] Univers 00:00:00 00:00:00 Sheaobey MARUQEZ [id number] i ty [facility] [id number] [id number] [place] dical NAL 5 [facility] 2022-01-05 2022-01-05 Orders Doctor YESSENIA [id number] Univers 00:00:00 00:00:00 Only Unassigned, GISELA [id number] ity of [place] [facility] [id number] [place] as [id number] [address] 2021-12-17 2021-12-17 Office Erin [facility] [id number] Univers 14:00:00 14:30:00 Visit Juwan MARQUEZ [id number] i ty [place] [id number] [place] [phone] [address] 2021-12-17 2021-12-17 Outpatient R JUWAN KHAN [facility] 10 [id number] Univers 14:00:00 14:00:00 JUWAN KHAN i ty of [facility] 2020-08-11 2020-08-11 Transition Fred Gutierrez [id number] 00:00:00 00:00:00 of Care Lissa Willson [id number] [place] [id number] [facility] 2020-08-02 2020-08-09 [facility] Danae Mendez [facility] [id number] 18:18:00 17:46:00 Encounter Zuly Rizo [id number] 0 Lorene Kinney [id number] [place] [id number] 2020-08-05 2020-08-05 Transition Fred Gutierrez [id number] 00:00:00 00:00:00 of Care Lissa Willson [id number] [place] [id number] 2020-08-01 2020-08-02 Emergency Cecilia Rodarte [facility] 1.2.840. [id number] 13:38:00 14:03:00 Kris Stevens [id number] [place] [id number] [place] [id number] 2020-07-21 2020-07-21 Orders Doctor YESSENIA [id number] 00:00:00 00:00:00 Only Unassigned, GISELA [id number] [place] [facility] [id number] 2019-12-20 2019-12-20 Access Tech James Maki [facility] [id number] 14:10:01 14:34:05 Visit Lab Main Spnecer [id number] [place] [id number] [facility] [id number] [address] Results Test Description Test Time Test Comments Results Result Comments Source SARS-COV2/RT-PCR ([facility]) 2020-04-28 19:12:00 Test Item Value Reference Range Interpretation Comme nts SARS-COV2/RT-PCR (test code = 2759112) Negative Not Detected, N egative, See external report for linked test SARS-COV-2 PERFORMING LAB (test code = BSC 4202513) Negative results do not preclude SARS-CoV-2 infection [...] of the Act.Fact Sheet for Healthcare Pro viders:https://www.[employer]/Documents/Xpert%20Xpress%20SARS%20CoV-2/Fact%20Sh eets/302-3802%65HKPN-MXA-2%20HEALTHCARE%20PROVIDERS%20FACT%20SHEET.pdfFact Sheet for Healthcare Patients:https://www.[employer]/Documents/Xpert%20Xpress%20SARS%20CoV-2/Fact%20Sheets/302-3801%20SARS-COV -2%20PATIENT%20FACT%20SHEET.pdfPerforming Laboratory:[address] [id number]/RT-PCR ([facility]) 2020-03-08 04:10:00 Test Item Value Reference Range Interpretation Comments SARS-COV2/RT-PCR (test Not Detected Not Detected, Negative code = [id number]) SARS-COV-[address] [facility] (test code = [id number]) Negative results do not preclude SARS-CoV-2 infection [...] of the Act.Fact Sheet for Healthcare Pro viders:https://www.[employer]/Documents/Xpert%20Xpress%20SARS%20CoV-2/Fact%20Sh eets/3023802%11OYBV-DYU-2%20HEALTHCARE%20PROVIDERS%20FACT%20SHEET.pdfFact Sheet for Healthcare Patients:https://www.[employer]/Documents/Xpert%20Xpress%20SARS%20CoV-2/Fact%20Sheets/3023801%20SARS-COV -2%20PATIENT%20FACT%20SHEET.pdfPerforming Laboratory:[facility] [address]
[2022-02-13] MEDS ORDERED: NA CHLORIDE 0.9% 500 ML ONE (12:10)
[2022-02-13 12:23] LABS: Urine Blood Trace-intact (Negative); Urine Glucose Negative (Negative); Urine Protein Negative (Negative); Urine pH 8.5 (5.0-7.0)
[2022-02-13 12:48] LABS: Absolute Lymphocytes (CBC) 1.5 K/uL (0.7-4.9); Hematocrit 33.1 % (36.0-45.0); Lymphocytes % 12.6 % (15.3-44.8); MPV 6.8 fL (7.6-11.3); RBC Red Blood Cell Count 3.72 M/uL (3.86-4.86)
[2022-02-13 13:02] LABS: Protime INR 0.96
[2022-02-13 13:08] LABS: Albumin 3.3 g/dL (3.4-5.0); Bilirubin Direct 0.2 mg/dL (0-0.2); Bilirubin Total 0.6 mg/dL (0.2-1.0); Magnesium 2.2 mg/dL (1.8-2.4); Potassium 3.9 mmol/L (3.5-5.1); Troponin High Sensitivity 13.1 pg/mL (<58.9)
--- NOTE | 2022-02-13 14:28 | RAD REPORT ---
EXAM DESCRIPTION: RAD - Chest Single View - 02/13/2022 2:12 pm CLINICAL HISTORY: CONGESTION COMPARISON: Chest Single View dated 05/07/2021; Chest Single View dated 05/05/2021; Chest Single View da shy 05/03/2021; Chest Single View dated 04/27/2021; Abdomen Pelvis W Contrast dated 02/13/2022 FINDINGS: Lines: None. Lungs: Diffuse prominence of the pulmonary interstitium. Question discrete right upper lobe pulmonary nodule. Pleural: No significant pleural effusions or pneumothorax. Cardiac: The heart size is within normal limits. Bones: No acute fractures. Other: IMPRESSION: No definite acute process identified. Prominence of the pulmonary interstitium may refle ct chronic changes. Right upper lobe nodular opacity which is nonspecific. This could be further eval uated with either chest CT or 4-6 week follow-up chest radiograph.
--- NOTE | 2022-02-13 14:36 | RAD REPORT ---
EXAM DESCRIPTION: CTAbdomen Pelvis W Contrast - 02/13/2022 2:25 pm CLINICAL HISTORY: Abdominal pain, acute, nonlocalized COMPARISON: Chest For Pe Angio dated 05/03/2021 TECHNIQUE: CT of the abdomen and pelvis was performed. All CT scans are performed using dose optimization technique as appropriate and may include automated exposure control or mA/KV adjustment according to patient size. FINDINGS: Lower chest: Small right and trace left pleural effusion. Probably chronic changes in the lung bases. Moderate hiatal hernia. Liver: No acute abnormality or suspicious lesions. Biliary: Distended gallbladder which is otherwise nonspecific. Common bile duct is within normal limi ts for patient's age. Stomach: No significant focal abnormality. Duodenum: No significant focal abnormality. Pancreas: No significant abnormality. Spleen: No significant abnormality. Adrenal: No suspicious lesions. Kidney/ureter: No hydronephrosis. No renal calculi. Too small to characterize and/or benign appearing renal lesions are noted. Retroperitoneum: No retroperitoneal adenopathy. Vascular: No aneurysm. Atherosclerosis. Bowel: Moderate stool in the colon. No bowel obstruction. Peritoneum: Trace free fluid. Bladder: Grossly unremarkable. Reproductive: No adnexal masses. Bones: No acute fracture. Bone graft harvest site at the left iliac bone. Remote T11 and T12 compress ion fractures. Mild compression deformity at L1 is also chronic. Other: n/a IMPRESSION: No acute intra-abdominal or pelvic finding. Multiple incidental findings as noted above.
[2022-02-13] MEDS ORDERED: ONDANSETRON 4 MG/2 ML VIAL ONE (14:54)
[2022-02-13] MEDS ORDERED: MORPHINE 4 MG/ML SYR ONE (14:54)
--- NOTE | 2022-02-13 15:26 | ER ---
Nurse's Notes [facility] Name: Allison Vickers Age: 86 yrs Sex: Female : 1935 Arrival Date: 02/13/2022 Time: 11:40 Bed 15 Private MD: Diagnosis: Lower abdominal pain, unspecified Presentation: 02/13 11:40 Chief complaint: EMS states: "86 year old female called us reporting weakness and jd3 abdominal pain. on arrival the home health nurse filled us in that the pt is having increased shortness of breath. she has been having green mucus and productive cough. pt reports abdominal pain was relieved after having a bowel movement. we started a 22 G IV to the left forearm and we gave a total of 50 mcg of Fentanyl for her back pain. pt is on 3 L nasal canula at home and if she exerts herself at all, her O2 saturation goes down.". Coronavirus screen: cough unrelated to allergies, difficulty breathing, Client presents with at least one sign or symptom that may indicate coronavirus-19. Standard/surgical mask placed on the client. Provider contacted for isolation considerations. Ebola Screen: No symptoms or risks identified at this time. Initial Sepsis Screen: Does the patient meet any 2 criteria? No. Patient's initial sepsis screen is negative. Does the patient have a suspected source of infection? No. Patient's initial sepsis screen is negative. Risk Assessment: Do you want to hurt yourself or someone else? Patient reports no desire to harm self or others. Onset of symptoms was February 12, 2022. 11:40 Method Of Arrival: EMS: [facility] jd3 11:40 Acuity: JESUS 3 jd3 Historical: - Allergies: 11:44 Clindamycin; jd3 11:44 Codeine; jd3 - PMHx: 11:44 chronic bronchitis; ADD/ADHD; Arthritis; carpal tunnel syndrome; CHF; Chronic pain; jd3 COPD; hiatal hernia; Hypertension; diverticulosis; IRON DEFICIENCY ANEMIA; - PSHx: 11:44 Appendectomy; back; Ligation of fallopian tube; jd3 - Immunization history:: Adult Immunizations up to date, Client reports receiving the 2nd dose of the Covid vaccine, Pneumococcal vaccine is up to date, Flu vaccine is up to date. - Social history:: Smoking status: Patient/guardian denies using tobacco, the patient reports quitting approximately 3 years ago. - Family history:: not pertinent. Screenin:47 Abuse screen: Denies threats or abuse. Nutritional screening: No deficits noted. jd3 Tuberculosis screening: No symptoms or risk factors identified. Fall Risk IV access (20 points). Ambulatory Aid- None/Bed Rest/Nurse Assist (0 pts). Gait- Weak (10 pts.). Mental Status- Oriented to own ability (0 pts). Total Francisco Fall Scale indicates Low Risk Score (25-44 pts). Fall prevention measures have been instituted. Side Rails Up X 2 Placed close to Nursing Station Frequent Obs/Assesments occuring Family Present and informed to notify staff if they need to leave bedside. Assessment: 11:45 General: Appears in no apparent distress. uncomfortable, Behavior is calm, cooperative, jd3 appropriate for age. Pain: Complains of pain in back Quality of pain is described as aching. Neuro: Pruitt Agitation-Sedation Scale (RASS): 0 - Alert and Calm Level of Consciousness is awake, alert, obeys commands, Oriented to person, place, time, situation. Cardiovascular: Heart tones present Capillary refill < 3 seconds Patient's skin is warm and dry. Rhythm is regular. Respiratory: Airway is patent Respiratory effort is even, labored, shallow, Respiratory pattern is symmetrical, tachypnea Breath sounds are coarse Breath sounds with rhonchi bilaterally. GI: No signs and/or symptoms were reported involving the gastrointestinal system. : No signs and/or symptoms were reported regarding the genitourinary system. EENT: No signs and/or symptoms were reported regarding the EENT system. Derm: Skin is intact, Skin is dry, Skin is normal, Skin temperature is warm. Musculoskeletal: Circulation, motion, and sensation intact. Range of motion:. 13:24 Reassessment: Patient appears in no apparent distress at this time. No changes from jd3 previously documented assessment. Patient and/or family updated on plan of care and expected duration. Pain level reassessed. 14:27 Reassessment: Patient appears in no apparent distress at this time. No changes from jd3 previously documented assessment. Patient and/or family updated on plan of care and expected duration. Pain level reassessed. 16:06 Reassessment: Patient appears in no apparent distress at this time. No changes from jd3 previously documented assessment. Patient and/or family updated on plan of care and expected duration. Pain level reassessed. 16:08 Reassessment: Patient appears in no apparent distress at this time. Patient and/or jd3 family updated on plan of care and expected duration. Pain level reassessed. Patient states feeling better. Vital Signs: 11:45 BP 159 / 62; Pulse 81; Resp 25 S; Temp 98.9(O); Pulse Ox 94% on 3 lpm NC; Weight 44 kg jd3 (R); Height 5 ft. 4 in. (162.56 cm) (R); Pain 2/10; 13:24 BP 172 / 81; Pulse 85; Resp 25 S; Pulse Ox 92% on 3 lpm NC; jd3 14:25 Pulse Ox 87% on 3 lpm NC; jd3 14:27 BP 167 / 67; Pulse 89; Resp 25 S; Pulse Ox 94% on 3 lpm NC; jd3 16:07 BP 164 / 66; Pulse 91; Resp 24 S; Pulse Ox 93% on 3 lpm NC; jd3 11:45 Body Mass Index 16.65 (44.00 kg, 162.56 cm) jd3 14:25 on exertion jd3 ED Course: 11:40 Patient arrived in ED. jd3 11:44 Triage completed. jd3 11:45 Arm band placed on. EKG completed in triage. Results shown to MD. jd3 11:47 Patient has correct armband on for positive identification. Bed in low position. Call jd3 light in reach. Side rails up X2. Adult w/ patient. Client placed on continuous cardiac and pulse oximetry monitoring. NIBP monitoring applied. front desk monitor on. Pulse ox on. NIBP on. 11:49 Daniela Anders MD is Attending Physician. ma2 11:50 EKG done, by ED staff, reviewed by Daniela Anders MD. em1 12:00 Shaheen Mayes, SAMANTHA is Primary Nurse. jd3 12:00 Maintain EMS IV. Dressing intact. Good blood return noted. Gauge \\T\\ site: 22 G to the jd3 left forearm. 14:14 XRAY Chest (1 view) In Process Unspecified. EDMS 14:27 CT Abd/Pelvis - IV Contrast Only In Process Unspecified. EDMS 16:07 No provider procedures requiring assistance completed. IV discontinued, intact, jd3 bleeding controlled, No redness/swelling at site. Pressure dressing applied. Administered Medications: 12:43 Drug: NS 0.9% 500 ml Route: IV; Rate: 500 bolus; Site: left forearm; jd3 13:40 Follow up: Response: No adverse reaction; IV Status: Completed infusion jd3 14:54 Drug: morphine 4 mg Route: IVP; Site: left forearm; jd3 15:50 Follow up: Response: No adverse reaction; RASS: Alert and Calm (0) jd3 14:54 Drug: Zofran (Ondansetron) 4 mg Route: IVP; Site: left forearm; jd3 15:50 Follow up: Response: No adverse reaction jd3 Medication: 11:47 VIS not applicable for this client. jd3 Outcome: 15:25 Discharge ordered by . ced 16:07 Discharged to home via wheelchair, with family. jd3 16:07 Condition: stable 16:07 Discharge instructions given to patient, family, Instructed on discharge instructions, follow up and referral plans. medication usage, Demonstrated understanding of instructions, follow-up care, medications, Prescriptions given X 1. 16:09 Patient left the ED. jd3 Signatures: Dispatcher [employer] EDMarciano Perez em1 Shaheen Mayes RN RN Daniela Rehman MD MD ma2 Corrections: (The following items were deleted from the chart) 13:33 11:45 Respiratory: Airway is patent Respiratory effort is even, labored, shallow, jd3 Respiratory pattern is symmetrical, tachypnea Breath sounds are coarse Breath sounds with rhonchi bilaterally. jd3
--- NOTE | 2022-02-13 15:26 | EDPHYS ---
Physician Documentation [facility] Name: Allison Vickers Age: 86 yrs Sex: Female : 1935 Arrival Date: 02/13/2022 Time: 11:40 Bed 15 Private MD: ED Physician Daniela Anders HPI: 02/13 13:46 This 86 yrs old Female presents to ER via EMS with complaints of Abdominal pain. ma2 13:46 Onset: The symptoms/episode began/occurred gradually, 2 day(s) ago. Associated signs ma2 and symptoms: Pertinent negatives: diaphoresis, fever, loss of consciousness, nausea. Severity of symptoms: At their worst the symptoms were. 86-year-old female, presents with suprapubic abdominal pain today, of note patient use home oxygen has been having shortness of breath for 2 years after COVID. Denies change in her respiratory symptoms or condition.. Historical: - Allergies: 11:44 Clindamycin; jd3 11:44 Codeine; jd3 - PMHx: 11:44 chronic bronchitis; ADD/ADHD; Arthritis; carpal tunnel syndrome; CHF; Chronic pain; jd3 COPD; hiatal hernia; Hypertension; diverticulosis; IRON DEFICIENCY ANEMIA; - PSHx: 11:44 Appendectomy; back; Ligation of fallopian tube; jd3 - Immunization history:: Adult Immunizations up to date, Client reports receiving the 2nd dose of the Covid vaccine, Pneumococcal vaccine is up to date, Flu vaccine is up to date. - Social history:: Smoking status: Patient/guardian denies using tobacco, the patient reports quitting approximately 3 years ago. - Family history:: not pertinent. ROS: 13:46 Constitutional: Negative for fever, chills, and weight loss. ma2 13:46 All other systems are negative. Exam: 13:46 Constitutional: This is a well developed, well nourished patient who is awake, alert, ma2 and in no acute distress. Chest/axilla: Normal chest wall appearance and motion. Nontender with no deformity. No lesions are appreciated. Cardiovascular: Regular rate and rhythm with a normal S1 and S2. No gallops, murmurs, or rubs. Normal PMI, no JVD. No pulse deficits. Respiratory: Crepitation both lungs, saturation as 92 patient is on 3 L oxygen via nasal cannula r lungs have equal breath sounds bilaterally, clear to auscultation and percussion. No rales, rhonchi or wheezes noted. No increased work of breathing, no retractions or nasal flaring. Abdomen/GI: Soft, non-tender, with normal bowel sounds. No distension or tympany. No guarding or rebound. No evidence of tenderness throughout. Skin: Warm, dry with normal turgor. Normal color with no rashes, no lesions, and no evidence of cellulitis. MS/ Extremity: Pulses equal, no cyanosis. Neurovascular intact. Full, normal range of motion. Neuro: Awake and alert, GCS 15, oriented to person, place, time, and situation. Cranial nerves II-XII grossly intact. Motor strength 5/5 in all extremities. Sensory grossly intact. Cerebellar exam normal. Normal gait. Vital Signs: 11:45 BP 159 / 62; Pulse 81; Resp 25 S; Temp 98.9(O); Pulse Ox 94% on 3 lpm NC; Weight 44 kg jd3 (R); Height 5 ft. 4 in. (162.56 cm) (R); Pain 2/10; 13:24 BP 172 / 81; Pulse 85; Resp 25 S; Pulse Ox 92% on 3 lpm NC; jd3 14:25 Pulse Ox 87% on 3 lpm NC; jd3 14:27 BP 167 / 67; Pulse 89; Resp 25 S; Pulse Ox 94% on 3 lpm NC; jd3 16:07 BP 164 / 66; Pulse 91; Resp 24 S; Pulse Ox 93% on 3 lpm NC; jd3 11:45 Body Mass Index 16.65 (44.00 kg, 162.56 cm) jd3 14:25 on exertion jd3 MDM: 15:23 Differential diagnosis: Lab work unremarkable, chest x-ray with right upper lung nodule ma2 that needs repeat x-ray in 6 weeks, I made family aware, patient is also aware of that there is incidental finding on CT abdomen, 11 T12 and L1 compression fracture, patient is aware of that she will continue to follow-up. There is no acute finding, lab work is unremarkable, vital signs are unremarkable noncritical, and at baseline, patient baseline saturation is 91% on 3 L O2 nasal cannula, according to patient her respiratory condition at this time is at her baseline. Patient would like to be discharged home. Data reviewed: vital signs, nurses notes, EMS record. 15:23 Data reviewed: lab test result(s). Counseling: I had a detailed discussion with the [facility] patient and/or guardian regarding: the historical points, exam findings, and any diagnostic results supporting the discharge/admit diagnosis, the presence of at least one elevated blood pressure reading (>120/80) during this emergency department visit, the need for outpatient follow up. 15:25 Patient medically screened. 02/13 12:02 Order name: Basic Metabolic Panel; Complete Time: 13:21 la02/13 12:02 Order name: CBC with Diff; Complete Time: 13:21 la02/13 12:02 Order name: LFT's; Complete Time: 13: la02/13 12:02 Order name: Magnesium; Complete Time: 13:21 la02/13 12:02 Order name: NT PRO-BNP; Complete Time: 13:21 la02/13 12:02 Order name: PT-INR; Complete Time: 13: la02/13 12:02 Order name: Troponin HS; Complete Time: 13:21 la02/13 12:02 Order name: XRAY Chest (1 view); Complete Time: 14:44 la02/13 12:02 Order name: EKG; Complete Time: 12:02 02/13 12:23 Order name: Urine Dipstick-Ancillary; Complete Time: 13:21 [facility] 02/13 13:23 Order name: CT Abd/Pelvis - IV Contrast Only; Complete Time: 14:44 la02/13 12:02 Order name: Cardiac monitoring; Complete Time: 12:03 02/13 12:02 Order name: EKG - Nurse/Tech; Complete Time: 12:02 la02/13 12:02 Order name: IV Saline Lock; Complete Time: 12:04 la02/13 12:02 Order name: Labs collected and sent; Complete Time: 12:44 02/13 12:02 Order name: O2 Per Protocol; Complete Time: 12:04 la02/13 12:02 Order name: O2 Sat Monitoring; Complete Time: 12:04 02/13 12:02 Order name: Urine Dipstick-Ancillary (obtain specimen); Complete Time: 12:22 ma2 Administered Medications: 12:43 Drug: NS 0.9% 500 ml Route: IV; Rate: 500 bolus; Site: left forearm; jd3 13:40 Follow up: Response: No adverse reaction; IV Status: Completed infusion jd3 14:54 Drug: morphine 4 mg Route: IVP; Site: left forearm; jd3 15:50 Follow up: Response: No adverse reaction; RASS: Alert and Calm (0) jd3 14:54 Drug: Zofran (Ondansetron) 4 mg Route: IVP; Site: left forearm; jd3 15:50 Follow up: Response: No adverse reaction jd3 Disposition Summary: 02/13/22 15:25 Discharge Ordered Location: Home ma2 Condition: Stable ma2 Diagnosis - Lower abdominal pain, unspecified ma2 Followup: ma2 - With: Private Physician - When: Tomorrow - Reason: If symptoms return, Continuance of care Discharge Instructions: - Discharge Summary Sheet ma2 - Abdominal Pain, Adult ma2 Forms: - Medication Reconciliation Form ma2 - Thank You Letter ma2 - Antibiotic Education ma2 - Prescription Opioid Use ma2 Prescriptions: - Colace 100 mg Oral Tablet - take 1 tablet by ORAL route every 12 hours; 14 tablet; Refills: 0, Product ma2 Selection Permitted Signatures: Dispatcher [employer] Shaheen Espinoza RN RN jd3 Alzahri, Mohammad, MD MD ma2 Corrections: (The following items were deleted from the chart) 12:03 12:02 Urine Test ordered. ma2 ma2
[2022-02-13 20:24] VITALS: TEMP 98.9
[2022-02-13 20:29] VITALS: BP 164/66; O2SAT 93
--- NOTE | 2022-02-14 14:47 | EKG ---
Test Date: 2022-02-13 Test Time: 11:42:24 Signal Worker Helper: RAKAN MEASUREMENT RESULTS: Intervals: Rate: 78 [place]: QRSD: 62 QT: 336 QTc: 383 [place]: P: 78 NJ: QRS: 64 T: 61 INTERPRETIVE STATEMENTS: Atrial flutter Abnormal ECG Compared to ECG 05/03/2021 22:27:27 Sinus rhythm no longer present Atrial premature complex(es) no longer present Electronically Signed On 02-14-22 14:47:05 CDT by Tavon Hill
== END 2022-02-13 16:09 | disposition home or self-care (01) ==
LOC: ER 11:32
DX: R10.30 Lower abdominal pain, unspecified (principal); Z86.16 Personal history of COVID-19; Z88.3 Allergy status to other anti-infective agents; Z88.5 Allergy status to narcotic agent
CPT/HCPCS: 36415; 71045; 74177; 80048; 80076; 81003; 83735; 83880; 84484; 85025; 85610; 93005; 96361; 96374; 96375; 99284; J2405; J7040; Q9967

== ENCOUNTER 2022-02-15 12:47 | Inpatient (IN) | payer OTHER ==
--- OUTSIDE RECORDS SUMMARY | 2022-02-15 12:51 | XMS REPORT | Continuity of Care Document ---
:1935 Author Organization [facility] t Address [address] [place] [address] Care Team Providers Name Role Phone Delicia [...] Quantity Comments Source Exposure to Not sure [facility] SARS-CoV-2 (event) [facility] [place] Alcohol intake 2021-12-17 2021-12-17 Current University of 00:00:00 00:00:00 non-drinker of [facility] alcohol Branch (finding) Cigarettes smoked 2019-01-05 2019-01-05 Univers ity of current (pack per 00:00:00 00:00:00 ) - Reported Branch Cigarette 2019-01-05 2019-01-05 University of pack-years 00:00:00 00:00:00 [facility] [place] Tobacco use and 2019-01-05 2019-01-05 Never used Universit y of exposure 00:00:00 00:00:00 [facility] [place] History of tobacco 2018-09-02 Cigarette Smoker University of use 00:00:00 [facility] [place] Sex Ass[birth year] At [birth year] Universit y of 00:00:00 00:00:00 [facility] [place] Smoking Status Start Date Stop Date Source Former smoker 2019-01-05 00:00:00 2019-01-05 00:00:00 Universi ty of [facility] [place] Current every day 2018-04-18 00:00:00 [facility] smoker Medications Ordered Filled Start Stop Current Ordering Indication Dosage Frequency Signature Comments Components Source Medication Medication Date Date Medication? Clinician (SIG) Name Name doxycycline Yes [id number] 100mg Take 1 Univers hyclate 100 4-18 capsule by it y of mg capsule 00:00: mouth [place] 00 every 12 Medical (twelve) Branch hours. doxycycline 2021- Yes [id number] 100mg Take 1 Univers hyclate 100 4-18 04-26 capsule by i ty of mg capsule 00:00: 04:59 mouth [place] 00 :00 every 12 Medical (twelve) Branch hours for 7 days. fluticasone Yes [id number] 1{puff} Inhale 1 Univers -umeclidin- 3-17 Puff ity of vilanter 00:00: daily. [place] (TRELEGY 00 Medical ELLIPTA) Branch 100-62.5-25 mcg DsDv fluticasone Yes [id number] 1{puff} Inhale 1 Univers -umeclidin- 3-17 Puff ity of vilanter 00:00: daily. [place] (TRELEGY 00 Medical ELLIPTA) Branch 100-62.5-25 mcg DsDv fluticasone Yes [id number] 1{puff} Inhale 1 Univers -umeclidin- 3-17 Puff ity of vilanter 00:00: daily. [place] (TRELEGY 00 Medical ELLIPTA) Branch 100-62.5-25 mcg DsDv fluticasone Yes [id number] 1{puff} Inhale 1 Univers -umeclidin- 3-17 Puff ity of vilanter 00:00: daily. [place] (TRELEGY 00 Medical ELLIPTA) Branch 100-62.5-25 mcg DsDv lidocaine 5 Yes [id number] 1{patch Apply 1 Univers % (700 8-25 } Patch to ity of mg/patch) 00:00: area(s) [place] patch 00 daily. Medical Branch lidocaine 5 Yes [id number] 1{patch Apply 1 Univers % (700 8-25 } Patch to ity of mg/patch) 00:00: area(s) [place] patch 00 daily. Medical Branch lidocaine 5 Yes [id number] 1{patch Apply 1 Univers % (700 8-25 } Patch to ity of mg/patch) 00:00: area(s) [place] patch 00 daily. Medical Branch lidocaine 5 Yes [id number] 1{patch Apply 1 Univers % (700 8-25 } Patch to ity of mg/patch) 00:00: area(s) [place] patch 00 daily. Medical Branch tiotropium 2021- No [id number] 18ug Inhale 1 Univers 18 mcg 8-25 03-17 capsule ity of inhalation 00:00: 00[place] tiotropium 2021- No [id number] 18ug Inhale 1 Univers 18 mcg 8-25 03-17 capsule ity of inhalation 00:00: 00:[place] carvediloL Yes 12.5mg Take 1 Uni vers 12.5 mg 8-24 tablet by ity of tablet 00:00: mouth 2 (two) Medical times Branch daily with meals. acetaminoph Yes 650mg Take 650 U nivers en 8-24 mg by ity of (TYLENOL) 00:00: mouth [place] 325 mg Cap 00 every 4 Medica l (four) Branch hours as needed for Pain (scale 4-6) or Fever. gabapentin Yes 300mg Take 1 Univ ers 300 mg 8-24 capsule by ity of capsule 00:00: mouth 3 00 (three) Medical times Branch daily. loratadine Yes 10mg Take 1 Unive rs (CLARITIN) 8-24 tablet by ity of 10 mg 00:00: mouth [place] tablet 00 daily. Medical Branch ipratropium Yes [id number] 3mL Inhale 3 Univers -albuteroL 8-24 mL [...] [place] 00 bedtime. Medical Branch pantoprazol Yes [id number] 40mg Take 1 Univers e 40 mg EC 8-24 tablet by ity of tablet 00:00: mouth [place] 00 daily. Medical Branch theophyllin Yes 200mg Take 1 Uni vers e (MIKKI-24) 8-24 capsule by it y of 200 mg 24 00:00: mouth [place] hr capsule 00 daily. Medical Branch vitamin Yes [id number] 1000ug Take 1 Un rubio B-12 1,000 [...] tablet 00 daily. Medical Branch ipratropium Yes [id number] 3mL Inhale 3 Univers -albuteroL 8-24 mL [...] [place] 00 bedtime. Medical Branch pantoprazol Yes [id number] 40mg Take 1 Univers e 40 mg EC 8-24 tablet by ity of tablet 00:00: mouth [place] 00 daily. Medical Branch theophyllin Yes 200mg Take 1 Uni vers e (MIKKI-24) 8-24 capsule by it y of 200 mg 24 00:00: mouth [place] hr capsule 00 daily. Medical Branch vitamin Yes [id number] 1000ug Take 1 Un rubio B-12 1,000 8-24 tablet by ity of mcg tablet 00:00: mouth [place] 00 daily. Medical Branch polyethylen Yes 17g Take 17 g U nivers e glycol 8-24 by mouth ity of 3350 00:00: daily. [place] (MIRALAX) 00 Medical 17 Branch gram/dose powder [...] tablet 00 daily. Medical Branch ipratropium Yes [id number] 3mL Inhale 3 Univers -albuteroL 8-24 mL [...] [place] 00 bedtime. Medical Branch pantoprazol Yes [id number] 40mg Take 1 Univers e 40 mg EC 8-24 tablet by ity of tablet 00:00: mouth [place] 00 daily. Medical Branch theophyllin Yes 200mg Take 1 Uni vers e (MIKKI-24) 8-24 capsule by it y of 200 mg 24 00:00: mouth [place] hr capsule 00 daily. Medical Branch vitamin Yes [id number] 1000ug Take 1 Un rubio B-12 1,000 8-24 tablet by ity of mcg tablet 00:00: mouth [place] 00 daily. Medical Branch polyethylen Yes 17g Take 17 g U nivers e glycol 8-24 by mouth ity of 3350 00:00: daily. [place] (MIRALAX) 00 Medical 17 Branch gram/dose powder [...] tablet 00 daily. Medical Branch ipratropium Yes [id number] 3mL Inhale 3 Univers -albuteroL 8-24 mL [...] [place] 00 bedtime. Medical Branch pantoprazol Yes [id number] 40mg Take 1 Univers e 40 mg EC 8-24 tablet by ity of tablet 00:00: mouth [place] 00 daily. Medical Branch theophyllin Yes 200mg Take 1 Uni vers e (MIKKI-24) 8-24 capsule by it y of 200 mg 24 00:00: mouth [place] hr capsule 00 daily. Medical Branch vitamin Yes [id number] 1000ug Take 1 Un rubio B-12 1,000 8-24 tablet by ity of mcg tablet 00:00: mouth [place] 00 daily. Medical Branch polyethylen Yes 17g Take 17 g U nivers e glycol 8-24 by mouth ity of 3350 00:00: daily. [place] (MIRALAX) 00 [place] [address] Branch gram/dose powder prednisoLON Yes 10mg Take 2 Univ ers E 5 mg 8-24 tablets by ity of tablet 00:00: mouth [place] 00 daily. Medical Branch HYDROcodone Yes 1{tbl} Take 1 Un rubio -acetaminop 8-24 tablet by ity of hen 10-325 00:00: mouth [place] mg tablet 00 every 6 Medical (six) Branch hours. furosemide Yes 20mg Take 1 Unive rs 20 mg 8-24 tablet by ity of tablet 00:00: mouth [place] 00 daily. Medical Branch fluticasone 2021- No 1{puff} Inhale 1 Univers -umeclidin- 8- 03-17 Puff ity of vilanter 00:00: 00:00 daily. [place] (TRELEGY 00 :00 Medical ELLIPTA) Branch 100-62.5-25 mcg DsDv fluticasone 2021- No [id number] 1{puff} Inhale 1 Univers propion-chuck -24 03-17 Puff every i ty of meteroL 00:00: 00:00 12 [place] 250-50 00 :00 (twelve) Medical mcg/dose hours. Branch inhalation disk fluticasone 2021- No 1{puff} Inhale 1 Univers -umeclidin- 8-24 03-17 Puff ity of vilanter 00:00: 00:00 daily. [place] (TRELEGY 00 :00 Medical ELLIPTA) Branch 100-62.5-25 mcg DsDv fluticasone 2- No [id number] 1{puff} Inhale 1 Univers propion-chuck 8-24 03-17 [...] Ordered Filled Immunization Date Status Comments [facility] Immunization Name Name Influenza Virus 2020-07-06 Completed Universit y of Vaccine 00:00:00 [facility] [place] Influenza Virus 2020-07-06 Completed Universit y of Vaccine 00:00:00 [facility] [place] Influenza Virus 2020-07-06 Completed Universit y of Vaccine 00:00:00 [facility] [place] Influenza Virus 2020-07-06 Completed Universit y of Vaccine 00:00:00 [facility] [place] Influenza High Dose 2019-09-22 Completed Unive rsity of 00:00:00 [facility] [place] Influenza High Dose 2019-09-22 Completed Unive rsity of 00:00:00 [facility] [place] Influenza High Dose 2019-09-22 Completed Unive rsity of 00:00:00 [facility] [place] Influenza High Dose 2019-09-22 Completed Unive rsity of 00:00:00 [facility] [place] PPD (TB) 2019-07-10 Completed University 00:00:00 [facility] [place] PPD (TB) 2019-07-10 Completed University 00:00:00 [facility] [place] PPD (TB) 2019-07-10 Completed University 00:00:00 [facility] [place] PPD (TB) 2019-07-10 Completed University 00:00:00 [facility] [place] Vital Signs Vital Name Observation Time Observation Value Comments Source Systolic blood 2021-12-17 177 mm[Hg] [place] of pressure 19:10:00 [facility] [place] Diastolic blood 2021-12-17 77 mm[Hg] [place] o f pressure 19:10:00 [facility] [place] Heart rate 2021-12-17 77 /min [facility] 19:10:00 [facility] [place] Respiratory rate 2021-12-17 23 /min [facility] 19:06:00 [facility] [place] Body height 2021-12-17 152.4 cm [facility] 19:06:00 [facility] [place] Body weight 2021-12-17 43.092 kg [facility] 19:06:00 [facility] [place] BMI 2021-12-17 18.55 kg/m2 [facility] 19:06:00 [facility] [place] Oxygen saturation 2021-12-17 78 /min with deep [facility] Arterial blood 19:06:00 breaths 94% [facility] by Pulse oximetry [place] Procedures Procedure Date / Time Performed Performing Clinician [facility] HOME HEALTH - OTHER 2022-01-05 05:01:00 Doctor Unassigned, No Un iversity of [place] Name [facility] Plan of Care Planned Activity Planned Date Details Comments Source Future Scheduled Test 65+ PNEUMOCOCCAL [facility] VACCINE (1 of 2 - PPSV23) [code = 65+ PNEUMOCOCCAL VACCINE (1 of 2 - PPSV23)] Future Scheduled Test COVID-19 VACCINE (1) [facility] [code = COVID-19 VACCINE (1)] Future Scheduled Test SHINGLES VACCINES (#1) [facility] [code = SHINGLES VACCINES (#1)] Future Scheduled Test INFLUENZA VACCINE [code [facility] = INFLUENZA VACCINE] Encounters Start End Encounter Admission Attending Care Care Encounter Source Date/Time Date/Time Type Type Clinicians Facility Department ID 2022-01-112022-01-11 Telephone Erin [facility] [id number] Univers 00:00:00 00:00:00 Sheaobey MARQUEZ [id number] i ty [facility] [place] [id number] Tn dical NAL 5 [facility] 2022-01-05 2022-01-05 Orders Doctor YESSENIA [id number] Univers 00:00:00 00:00:00 Only Unassigned, GISELA 350.1.13.10 ity of War [facility] 4.2.7.2.686 [place] as [id number] [address] 2021-12-17 2021-12-17 Office Erin [facility] [id number] Univers 14:00:00 14:30:00 Visit Juwan MARQUEZ [id number] i ty [place]2.686 [place] [id number] [address] 2021-12-17 2021-12-17 Outpatient R JUWAN KHAN [facility] [id number] Univers 14:00:00 14:00:00 JUWAN KHAN i ty of [facility] [place] 2020-08-11 2020-08-11 Transition Fred Gutierrez [id number] 00:00:00 00:00:00 of Care Lissa Willson [id number] [place] 4.2.7.2.686 [id number] [facility] 2020-08-02 2020-08-09 [facility] Danae Mendez [facility] 1.2.84 [id number] [id number] 18:18:00 17:46:00 Encounter Zuly Rizo 350.1.13.1 0 Lorene Kinney 4.2.7.2.686 [place] [id number] 2020-08-05 2020-08-05 Transition Fred Gutierrez [id number] 00:00:00 00:00:00 of Care Lissa Willson [id number] [place] 4.2.7.2.686 [id number] 2020-08-01 2020-08-02 Emergency Cecilia Rodarte [facility] 1.2.840. [id number] 13:38:00 14:03:00 Kris Stevens [id number] [place] 4.2.7.2.686 [place] [id number] 2020-07-21 2020-07-21 Orders Doctor YESSENIA [id number] 00:00:00 00:00:00 Only Unassigned, GISELA 350.1.13.10 War [facility] 4.2.7.2.686 [id number] 2019-12-20 2019-12-20 [employer] James Maki [facility] [id number] 14:10:01 14:34:05 Visit Lab Main [place] [id number] [place] 4.2.7.2.686 [facility] [id number] [address] Results Test Description Test Time Test Comments Results Result Comments Source SARS-COV2/RT-PCR ([facility]) 2020-04-28 19:12:00 Test Item Value Reference Range Interpretation Comme nts SARS-COV2/RT-PCR (test code = 0670790) Negative Not Detected, N egative, See external report for linked test SARS-COV-2 PERFORMING LAB (test code = BSC 7003890) Negative results do not preclude SARS-CoV-2 infection [...] of the Act.Fact Sheet for Healthcare Pro viders:https://www.[employer]/Documents/Xpert%20Xpress%20SARS%20CoV-2/Fact%20Sh eets/302-3802%25PLAO-GAA-7%20HEALTHCARE%20PROVIDERS%20FACT%20SHEET.pdfFact Sheet for Healthcare Patients:https://www.[employer]/Documents/Xpert%20Xpress%20SARS%20CoV-2/Fact%20Sheets/302-3801%20SARS-COV -2%20PATIENT%20FACT%20SHEET.pdfPerforming Laboratory:[address] [id number]-[id number]/RT-PCR ([facility]) 2020-03-08 04:10:00 Test Item Value Reference Range Interpretation Comments SARS-COV2/RT-PCR (test Not Detected Not Detected, Negative code = 8397434) SARS-COV-2 PERFORMING LAB [facility] (test code = 9389207) Negative results do not preclude SARS-CoV-2 infection [...] of the Act.Fact Sheet for Healthcare Pro viders:https://www.[employer] - [employer]/Documents/Xpert%20Xpress%20SARS%20CoV-2/Fact%20Sh eets/3023802%44VSBV-RNE-6%20HEALTHCARE%20PROVIDERS%20FACT%20SHEET.pdfFact Sheet for Healthcare Patients:https://www.[employer]/Documents/Xpert%20Xpress%20SARS%20CoV-2/Fact%20Sheets/3023801%20SARS-COV -2%20PATIENT%20FACT%20SHEET.pdfPerforming Laboratory:[facility] [address]
--- NOTE | 2022-02-15 13:45 | RAD REPORT ---
EXAM DESCRIPTION: RAD - Chest Single View - 02/15/2022 1:33 pm CLINICAL HISTORY: COUGH Chest pain. COMPARISON: Chest Single View dated 02/13/2022; Chest Single View dated 05/07/2021; Chest Single View d ated 05/05/2021; Chest Single View dated 05/03/2021 FINDINGS: Portable technique limits examination quality. Moderate bilateral pulmonary opacities are present likely representing pulmonary edema or pneumonia. The heart is mildly enlarged in size. Small bilateral pleural effusions.Large hiatal hernia.
--- NOTE | 2022-02-15 13:49 | RAD REPORT ---
EXAM DESCRIPTION: CT - Head Brain Wo Cont - 02/15/2022 1:43 pm CLINICAL HISTORY: Mental status change, unknown cause Headache, drowsiness COMPARISON: Head Brain Wo Cont dated 06/25/2020 TECHNIQUE: All CT scans are performed using dose optimization technique as appropriate and may inclu de automated exposure control or mA/KV adjustment according to patient size. FINDINGS: No intracranial hemorrhage, hydrocephalus or extra-axial fluid collection.Mild brain atrop hy.No areas of brain edema or evidence of midline shift. The paranasal sinuses and mastoids are clear. The calvarium is intact. IMPRESSION: No acute intracranial abnormality.
[2022-02-15] MEDS ORDERED: NA CHLORIDE 0.9% 50 ML ONE (14:00)
[2022-02-15] MEDS ORDERED: AZITHROMYCIN 500 MG INJ IVPB ONE (14:00)
[2022-02-15] MEDS ORDERED: ALBUTEROL 2.5 MG/3 ML NEB SOL ONE ×2 (14:00→19:50)
[2022-02-15] MEDS ORDERED: IPRATROPIUM BROM 0.5MG/2.5ML ONE ×2 (14:00→19:50)
[2022-02-15] MEDS ORDERED: FENTANYL CITR 100 MCG/2 ML ONE (14:00)
[2022-02-15] MEDS ORDERED: NA CHLORIDE 0.9% 250 ML ONE (14:00)
[2022-02-15] MEDS ORDERED: CEFTRIAXONE 1000 MG/VIAL ONE (14:00)
[2022-02-15 14:30] LABS: Urine Blood 2+ (Negative); Urine Glucose Negative (Negative); Urine Protein 2+ (Negative); Urine Specific Gravity 1.025 (1.005-1.030); Urine pH 5.5 (5.0-7.0)
[2022-02-15 15:16] LABS: Protime INR 1.13
[2022-02-15 15:32] LABS: Absolute Lymphocytes (CBC) 0.5 K/uL (0.7-4.9); Hematocrit 26.2 % (36.0-45.0); Lymphocytes % 11.7 % (15.3-44.8); MPV 7.5 fL (7.6-11.3); RBC Red Blood Cell Count 2.91 M/uL (3.86-4.86)
[2022-02-15 15:35] LABS: AST/SGOT 13 U/L (15-37); Albumin 2.4 g/dL (3.4-5.0); Alkaline Phosphatase 51 U/L (45-117); BUN Blood Urea Nitrogen 32 mg/dL (7-18); Bicarbonate 32 mmol/L (21-32); Bilirubin Direct 0.2 mg/dL (0-0.2); Bilirubin Total 0.4 mg/dL (0.2-1.0); Glomerular Filtration Rate 67 ml/min (=/>90); Glucose Level 90 mg/dL (74-106); Magnesium 2.3 mg/dL (1.8-2.4); NT PRO-BNP 615 pg/mL (<450); Potassium 4.2 mmol/L (3.5-5.1); Protein, Total 6.2 g/dL (6.4-8.2); Sodium Level 135 mmol/L (136-145)
[2022-02-15 15:42] LABS: ALT/SGPT < 10 U/L (12-78)
[2022-02-15] MEDS ORDERED: ACETAMINOPHEN 500 MG TAB PO PRN (17:09)
[2022-02-15] MEDS ORDERED: ONDANSETRON 4 MG/2 ML VIAL IV PRN (17:09)
--- NOTE | 2022-02-15 17:21 | ER ---
Nurse's Notes [facility] Name: Allison Vickers Age: 86 yrs Sex: Female : 1935 Arrival Date: 02/15/2022 Time: 12:48 Bed 2 Private MD: Diagnosis: Other pneumonia, unspecified organism;Altered mental status, unspecified Presentation: 02/15 12:48 Chief complaint: EMS states: toned out for confusion/altered mental status. Upon ld1 arrival pt is AAOX3. Reports chronic back pain. Coronavirus screen: At this time, the client does not indicate any symptoms associated with coronavirus-19. Ebola Screen: No symptoms or risks identified at this time. Initial Sepsis Screen: Does the patient meet any 2 criteria? No. Patient's initial sepsis screen is negative. Does the patient have a suspected source of infection? No. Patient's initial sepsis screen is negative. Risk Assessment: Do you want to hurt yourself or someone else? Patient reports no desire to harm self or others. Onset of symptoms was February 15, 2022. 12:48 Method Of Arrival: EMS: [facility] ld1 12:48 Acuity: JESUS 3 ld1 15:25 Acuity: JESUS 2 ph Triage Assessment: 12:50 General: Appears in no apparent distress. comfortable, Behavior is calm, cooperative, ld1 appropriate for age. Pain: Complains of pain in back Pain does not radiate. Pain currently is 7 out of 10 on a pain scale. Quality of pain is described as throbbing. EENT: No signs and/or symptoms were reported regarding the EENT system. Neuro: Level of Consciousness is awake, alert, obeys commands, confused, Oriented to person, place, situation. Cardiovascular: Capillary refill < 3 seconds Patient's skin is warm and dry. Rhythm is sinus rhythm. Respiratory: Airway is patent Respiratory effort is even, unlabored. GI: Abdomen is flat, non-distended. : No signs and/or symptoms were reported regarding the genitourinary system. Derm: No signs and/or symptoms reported regarding the dermatologic system. Musculoskeletal: Reports pain in back. Historical: - Allergies: 12:50 Clindamycin; ld1 12:50 Codeine; ld1 - PMHx: 12:50 ADD/ADHD; diverticulosis; IRON DEFICIENCY ANEMIA; Hypertension; hiatal hernia; carpal ld1 tunnel syndrome; Arthritis; CHF; chronic bronchitis; Chronic pain; COPD; - PSHx: 12:50 Appendectomy; back; Ligation of fallopian tube; ld1 - Immunization history:: Adult Immunizations up to date, Client reports receiving the 2nd dose of the Covid vaccine. - Social history:: Smoking status: Patient/guardian denies using tobacco, Patient/guardian denies using alcohol. Screenin:52 Abuse screen: Denies threats or abuse. Denies injuries from another. Nutritional ld1 screening: No deficits noted. Tuberculosis screening: No symptoms or risk factors identified. Fall Risk None identified. Assessment: 12:52 Reassessment: See triage assessment. ld1 14:21 Reassessment: Patient appears in no apparent distress at this time. Patient and/or ld1 family updated on plan of care and expected duration. Pain level reassessed. Patient is alert, oriented x 3, equal unlabored respirations, skin warm/dry/pink. 15:23 Reassessment: Patient appears in no apparent distress at this time. Patient and/or ld1 family updated on plan of care and expected duration. Pain level reassessed. 15:42 Reassessment: Patient appears in no apparent distress at this time. Patient and/or ph family updated on plan of care and expected duration. Pain level reassessed. 17:00 Reassessment: Patient appears in no apparent distress at this time. No changes from ld1 previously documented assessment. Patient and/or family updated on plan of care and expected duration. Pain level reassessed. 18:53 Reassessment: Patient appears in no apparent distress at this time. Patient and/or ld1 family updated on plan of care and expected duration. Pain level reassessed. Patient states feeling better. Vital Signs: 12:48 BP 123 / 80; Pulse 76; Resp 30; Temp 98.1(O); Pulse Ox 95% on 3 lpm NC; Weight 45.36 ld1 kg; Height 5 ft. 3 in. (160.02 cm); Pain 6/10; 14:21 BP 143 / 97; Pulse 92; Resp 25; Pulse Ox 99% on Nebulizer Mask; ld1 15:23 BP 131 / 70; Pulse 87; Resp 24; Pulse Ox 92% on 3 lpm NC; ld1 15:42 BP 131 / 70; Pulse 88; Resp 18; Pulse Ox 92% on 3 lpm NC; ph 17:00 BP 114 / 47; Pulse 84; Resp 19; Pulse Ox 98% on 3 lpm NC; ph 18:38 BP 121 / 44; Pulse 85; Resp 19; Pulse Ox 93% on 3 lpm NC; ph 19:08 BP 122 / 45; Pulse 90; Resp 25; Temp 102.2(O); Pulse Ox 92% on 3 lpm NC; mh5 12:48 Body Mass Index 17.71 (45.36 kg, 160.02 cm) ld1 NIH Stroke Scale Scores: 12:50 NIHSS Score: 0 ld1 ED Course: 12:48 Patient arrived in ED. ld1 12:50 Triage completed. ld1 12:50 Arm band placed on right wrist. ld1 12:51 Terrance Casey PA is PHCP. cp 12:51 Terrance Howe MD is Attending Physician. cp 12:52 Patient has correct armband on for positive identification. Placed in gown. Bed in low ld1 position. Call light in reach. Side rails up X2. threat monitoring analyst on. Pulse ox on. NIBP on. Door closed. Noise minimized. Warm blanket given. 12:52 No provider procedures requiring assistance completed. Maintain EMS IV. Dressing ld1 intact. Good blood return noted. Site clean \\T\\ dry. Gauge \\T\\ site: 20G RW. 13:07 Influenza Screen (a \\T\\ B) Sent. ld1 13:07 COVID-19 SARS RT PCR (Document "Date of Onset" if Symptomatic) Sent. ld1 13:11 COVID swab sent to lab. Flu and/or RSV swab sent to lab. 5 13:26 XRAY Chest (1 view) In Process Unspecified. EDMS 13:32 Ade Cameron, RN is Primary Nurse. ld1 13:45 CT Head Brain wo Cont In Process Unspecified. EDMS 14:35 Urine collected: straight cath specimen, cloudy. Inserted saline lock: 24 gauge in left 5 hand, using aseptic technique. Straight cath inserted, using sterile technique, 16 Fr. Specimen obtained. 15:07 Blood Culture Adult (2) Sent. 5 15:07 Lactate Sent. 5 15:07 Procalcitonin Sent. 5 15:07 Basic Metabolic Panel Sent. mh5 15:07 CBC with Diff Sent. mh5 15:08 LFT's Sent. mh5 15:08 Magnesium Sent. 5 15:08 NT PRO-BNP Sent. mh5 15:08 PT-INR Sent. mh5 15:08 Troponin HS Sent. mh5 15:08 EKG done, by ED staff, reviewed by Terrance CATALAN. 5 17:20 Daniela Rivas MD is Hospitalizing Provider. cp 21:03 Patient admitted, IV remains in place. as6 Administered Medications: 14:06 Drug: fentaNYL (PF) 25 mcg Route: IVP; Site: right wrist; ld1 21:04 Follow up: Response: No adverse reaction as6 14:07 Drug: Albuterol 2.5 mg Route: Inhalation; ld1 21:04 Follow up: Response: No adverse reaction as6 14:07 Drug: AtroVENT (ipratropium) Aerosol 0.5 mg Route: Inhalation; ld1 21:04 Follow up: Response: No adverse reaction as6 15:00 Drug: Rocephin - (cefTRIAXone) 1 grams Route: IVPB; Infused Over: 30 mins; Site: left ld1 jugular; 21:04 Follow up: Response: No adverse reaction; IV Status: Completed infusion; IV Intake: [id number] 15:34 Drug: Zithromax (azithromycin) 500 mg Route: IVPB; Infused Over: 1 hrs; Site: left ld1 jugular; 21:04 Follow up: Response: No adverse reaction; IV Status: Completed infusion; IV Intake: as6 100ml Medication: 12:52 VIS not applicable for this client. ld1 Intake: 21:04 IV: 100ml; Total: 100ml. as6 21:04 IV: 50ml; Total: 150ml. as6 Outcome: 17:21 Decision to Hospitalize by Provider. cp 21:03 Admitted to Med/surg accompanied by tech, family with patient, via stretcher, room 212, as6 with oxygen, with chart, Report called to Nunu SINGH 21:03 Condition: stable 21:03 Instructed on the need for admit. 21:05 Patient left the ED. as6 NIH Stroke Scale - NIH Stroke Score Date: 02/15/2022 Time: 12:50 Total Score = 0 1a. Level of Consciousness (LOC) - 0(Alert) 1b. Level of Consciousness (LOC) (Month \\T\\ Age) - 0(Both) 1c. LOC Commands (Open \\T\\ Closes Eyes/Flat Lock Machine Operator) - 0(Both) 2. Best Gaze (Lateral Gaze Paresis) - 0(Normal) 3. Visual Field Loss - 0(No visual loss) 4. Facial Palsy - 0(Normal) 5a. Left Arm: Motor (10-second hold) - 0(No drift) 5b. Right Arm: Motor (10-second hold) - 0(No drift) 6a. Left Leg: Motor (5-second hold - always test supine) - 0(No drift) 6b. Right Leg: Motor (5-second hold - always test supine) - 0(No drift) 7. Limb Ataxia (finger/nose \\T\\ heel/bernard - test with eyes open) - 0(Absent) 8. Sensory Loss (pinprick arms/legs/face) - 0(Normal) 9. Best Language: Aphasia (description/naming/reading) - 0(No aphasia) 10. Dysarthria (speech clarity - read or repeat words) - 0(Normal) 11. Extinction and Inattention (visual/tactile/auditory/spatial/personal) - 0(No abnormality) Initials: ld1 Signatures: Dispatcher [employer] Hodan Fairbanks RN RN ph Page, Corey, PA PA cp Martinez, Maria [facility] Ade Cameron RN RN ld1 Jesus Aden RN RN as6
--- NOTE | 2022-02-15 17:21 | EDPHYS ---
Physician Documentation [facility] Name: Allison Vickers Age: 86 yrs Sex: Female : 1935 Arrival Date: 02/15/2022 Time: 12:48 Bed 2 Private MD: FERNANDO Physician Terrance Howe HPI: 02/15 13:00 This 86 yrs old Female presents to ER via EMS with complaints of Altered Mental Status. cp 13:00 The patient presents with confusion. Onset: The symptoms/episode began/occurred today. cp 13:00 Possible causes: unknown. Associated signs and symptoms: Pertinent positives: cp productive cough, Pertinent negatives: abdominal pain, chest pain. Patient's baseline: Neuro: alert and fully oriented, Motor: no deficits, Ambulation: walks with assist only, Speech: normal. Historical: - Allergies: 12:50 Clindamycin; ld1 12:50 Codeine; ld1 - PMHx: 12:50 ADD/ADHD; diverticulosis; IRON DEFICIENCY ANEMIA; Hypertension; hiatal hernia; carpal ld1 tunnel syndrome; Arthritis; CHF; chronic bronchitis; Chronic pain; COPD; - PSHx: 12:50 Appendectomy; back; Ligation of fallopian tube; ld1 - Immunization history:: Adult Immunizations up to date, Client reports receiving the 2nd dose of the Covid vaccine. - Social history:: Smoking status: Patient/guardian denies using tobacco, Patient/guardian denies using alcohol. ROS: 13:05 Constitutional: Negative for fever. cp 13:05 ENT: Negative for ear pain, sore throat, difficulty swallowing, difficulty handling cp secretions. 13:05 Cardiovascular: Negative for chest pain. 13:05 Respiratory: Positive for cough, with green sputum, shortness of breath. 13:05 Abdomen/GI: Negative for abdominal pain, vomiting, diarrhea, constipation. 13:05 Neuro: Positive for altered mental status, Negative for headache. 13:05 All other systems are negative. Exam: 13:10 Constitutional: The patient appears in no acute distress, alert, awake, cp non-diaphoretic, non-toxic, well developed, well nourished. 13:10 Head/Face: Normocephalic, atraumatic. cp 13:10 Eyes: Periorbital structures: appear normal, Conjunctiva: normal, no exudate, no injection, Sclera: no appreciated abnormality, Lids and lashes: appear normal, bilaterally. 13:10 ENT: External ear(s): are unremarkable, Nose: is normal, Mouth: Lips: dry, Oral mucosa: moist, Posterior pharynx: Airway: no evidence of obstruction, patent. 13:10 Neck: ROM/movement: is normal, is supple, without pain, no range of motions limitations, no meningismus. 13:10 Chest/axilla: Inspection: normal, Palpation: is normal, no crepitus, no tenderness. 13:10 Cardiovascular: Rate: normal, Rhythm: irregular, Edema: mild lower leg edema, JVD: is not appreciated. 13:10 Respiratory: the patient does not display signs of respiratory distress, Respirations: shallow respirations, that is mild, Breath sounds: bronchial sounds, that are moderate, are heard diffusely, stridor, is not appreciated, + upper airway congestion. wheezing: is not appreciated. 13:10 Abdomen/GI: Inspection: abdomen appears normal, Palpation: abdomen is soft and non-tender, in all quadrants. 13:10 Back: pain, that is moderate, of the thoracic area, ROM is painful, with all movement. 13:10 Skin: cellulitis, is not appreciated, no rash present. 13:10 Neuro: Orientation: to person, situation, Mentation: able to follow commands, slow to respond, Motor: moves all fours, strength is normal, Sensation: no obvious gross deficits. 17:00 : Rectal exam: Guaiac testing: results were negative for occult blood. cp Vital Signs: 12:48 BP 123 / 80; Pulse 76; Resp 30; Temp 98.1(O); Pulse Ox 95% on 3 lpm NC; Weight 45.36 ld1 kg; Height 5 ft. 3 in. (160.02 cm); Pain 6/10; 14:21 BP 143 / 97; Pulse 92; Resp 25; Pulse Ox 99% on Nebulizer Mask; ld1 15:23 BP 131 / 70; Pulse 87; Resp 24; Pulse Ox 92% on 3 lpm NC; ld1 15:42 BP 131 / 70; Pulse 88; Resp 18; Pulse Ox 92% on 3 lpm NC; ph 17:00 BP 114 / 47; Pulse 84; Resp 19; Pulse Ox 98% on 3 lpm NC; ph 18:38 BP 121 / 44; Pulse 85; Resp 19; Pulse Ox 93% on 3 lpm NC; ph 19:08 BP 122 / 45; Pulse 90; Resp 25; Temp 102.2(O); Pulse Ox 92% on 3 lpm NC; mh5 12:48 Body Mass Index 17.71 (45.36 kg, 160.02 cm) ld1 NIH Stroke Scale Scores: 12:50 NIHSS Score: 0 ld1 MDM: 12:56 Patient medically screened. cp 13:00 Differential Diagnosis: CVA, electrolyte abnormality, intracranial bleed, meningitis, cp pneumonia, sepsis, UTI, volume depletion. 16:15 Data reviewed: vital signs, nurses notes, lab test result(s), EKG, radiologic studies, cp plain films. 16:15 Test interpretation: by ED physician or midlevel provider: ECG, plain radiologic cp studies. 16:25 Physician consultation: Daniela Rivas MD was called at 16:20, was contacted at 16:25, cp regarding admission, to the telemetry unit. patient's condition. 02/15 12:55 Order name: Basic Metabolic Panel; Complete Time: 15:53 02/15 15:53 Interpretation: Normal except: NA 135; ANION GAP 9.2; BUN 32; GFR 67. cp 02/15 12:55 Order name: CBC with Diff; Complete Time: 15:53 02/15 15:53 Interpretation: Normal except: WBC 4.4; RBC 2.91; HGB 8.4; HCT 26.2; MPV 7.5; EARLE% cp 74.0; LYM% 11.7; MN% 12.9; LYMA 0.5. 02/15 12:55 Order name: LFT's; Complete Time: 15:53 cp 02/15 15:54 Interpretation: Normal except: AST 13; ALT < 10; TP 6.2; ALB 2.4; GLOB 3.8; A/G 0.6. cp 02/15 12:55 Order name: Magnesium; Complete Time: 15:53 cp 02/15 12:55 Order name: NT PRO-BNP; Complete Time: 15:53 02/15 15:54 Interpretation: Abnormal: NT PRO-BNP 615. 02/15 12:55 Order name: PT-INR; Complete Time: 15:53 cp 02/15 12:55 Order name: Troponin HS; Complete Time: 15:53 cp 05 12:55 Order name: Procalcitonin; Complete Time: 15:53 cp 02/15 15:54 Interpretation: Abnormal: Procalcitonin 6.92. cp 02/15 12:55 Order name: Lactate; Complete Time: 15:53 cp 02/15 12:55 Order name: Blood Culture Adult (2) cp 02/15 12:55 Order name: Influenza Screen (a \\T\\ B); Complete Time: 15:53 cp 02/15 12:55 Order name: COVID-19 SARS RT PCR (Document "Date of Onset" if Symptomatic); Complete cp Time: 15:53 02/15 14:30 Order name: Urine Dipstick-Ancillary; Complete Time: 15:53 EDME 02/15 15:54 Interpretation: Normal except: UKET 1+; UBLD 2+; UPROT 2+. cp 02/15 17:13 Order name: CBC with Automated Diff EDMS 02/15 12:55 Order name: CT Head Brain wo Cont; Complete Time: 13:50 cp 02/15 12:55 Order name: XRAY Chest (1 view); Complete Time: 13:50 cp 02/15 13:51 Interpretation: Report review. cp 02/15 17:13 Order name: CBC with Automated Diff EDMS 02/15 17:13 Order name: Comprehensive Metabolic Panel EDMS 02/15 17:13 Order name: Comprehensive Metabolic Panel EDMS 02/15 17:13 Order name: Lactate EDMS 05 17:13 Order name: Lactate EDMS 05 17:13 Order name: Lipid Profile EDMS 05 17:13 Order name: Lipid Profile EDMS 05 17:13 Order name: Magnesium EDMS 05 17:13 Order name: Magnesium EDMS 05 17:13 Order name: NT PRO-BNP EDMS 05 17:13 Order name: NT PRO-BNP EDMS 05 17:13 Order name: Procalcitonin EDMS 0516 12:55 Order name: Cath; Complete Time: 14:35 cp 05 12:55 Order name: Urine Dipstick-Ancillary (obtain specimen); Complete Time: 14:35 cp 02/15 12:55 Order name: Urine Test (obtain specimen); Complete Time: 15:14 cp 05/16 12:55 Order name: EKG; Complete Time: 12:56 02/15 12:55 Order name: Cardiac monitoring; Complete Time: 13:06 02/15 12:55 Order name: EKG - Nurse/Tech; Complete Time: 14:26 02/15 12:55 Order name: IV Saline Lock; Complete Time: 13:06 02/15 12:55 Order name: Labs collected and sent; Complete Time: 15:08 02/15 12:55 Order name: O2 Per Protocol; Complete Time: 13: 02/15 12:55 Order name: O2 Sat Monitoring; Complete Time: 13:06 02/15 17:13 Order name: Heart Healthy EDMS EC: Rate is 85 beats/min. Rhythm is irregular. QRS interval is normal. QT interval is cp normal. Interpreted by me. Reviewed by me. Administered Medications: 14:06 Drug: fentaNYL (PF) 25 mcg Route: IVP; Site: right wrist; ld1 21:04 Follow up: Response: No adverse reaction as6 14:07 Drug: Albuterol 2.5 mg Route: Inhalation; ld1 21:04 Follow up: Response: No adverse reaction as6 14:07 Drug: AtroVENT (ipratropium) Aerosol 0.5 mg Route: Inhalation; ld1 21:04 Follow up: Response: No adverse reaction as6 15:00 Drug: Rocephin - (cefTRIAXone) 1 grams Route: IVPB; Infused Over: 30 mins; Site: left ld1 jugular; 21:04 Follow up: Response: No adverse reaction; IV Status: Completed infusion; IV Intake: [id number] 15:34 Drug: Zithromax (azithromycin) 500 mg Route: IVPB; Infused Over: 1 hrs; Site: left ld1 jugular; 21:04 Follow up: Response: No adverse reaction; IV Status: Completed infusion; IV Intake: as6 100ml Disposition Summary: 02/15/22 17:21 Hospitalization Ordered Hospitalization Status: Inpatient Admission cp Provider: Daniela Rivas cp Location: Telemetry/MedSurg (Inpatient) cp Condition: Stable cp Problem: new cp Symptoms: have improved cp Bed/Room Type: Standard cp Room Assignment: [facility](02/15/22 19:55) cg Diagnosis - Other pneumonia, unspecified organism cp - Altered mental status, unspecified cp Forms: - Medication Reconciliation Form cp - SBAR form cp NIH Stroke Scale - NIH Stroke Score Date: 02/15/2022 Time: 12:50 Total Score = 0 1a. Level of Consciousness (LOC) - 0(Alert) 1b. Level of Consciousness (LOC) (Month \\T\\ Age) - 0(Both) 1c. LOC Commands (Open \\T\\ Closes Eyes/Crime Lab Analyst) - 0(Both) 2. Best Gaze (Lateral Gaze Paresis) - 0(Normal) 3. Visual Field Loss - 0(No visual loss) 4. Facial Palsy - 0(Normal) 5a. Left Arm: Motor (10-second hold) - 0(No drift) 5b. Right Arm: Motor (10-second hold) - 0(No drift) 6a. Left Leg: Motor (5-second hold - always test supine) - 0(No drift) 6b. Right Leg: Motor (5-second hold - always test supine) - 0(No drift) 7. Limb Ataxia (finger/nose \\T\\ heel/bernard - test with eyes open) - 0(Absent) 8. Sensory Loss (pinprick arms/legs/face) - 0(Normal) 9. Best Language: Aphasia (description/naming/reading) - 0(No aphasia) 10. Dysarthria (speech clarity - read or repeat words) - 0(Normal) 11. Extinction and Inattention (visual/tactile/auditory/spatial/personal) - 0(No abnormality) Initials: ld1 Signatures: Dispatcher [employer] EDMS Terrance Casey PA PA cp Garcia, Cindy, RN RN cg Ade Cameron RN RN ld1 Jesus Aden RN as6 Corrections: (The following items were deleted from the chart) 17:14 17:13 Procalcitonin ordered. EDMS EDMS 19:55 17:21 cp cg
[2022-02-15] MEDS ORDERED: Levofloxacin 750mg IV 750 MG/150 ML BAG IV SCH (18:00)
[2022-02-15] MEDS: ENOXAPARIN 40 MG/0.4 ML SQ SCH (18:00)
[2022-02-15] MEDS: NA CHLORIDE 0.9% 1,000 ML IV SCH (18:00)
[2022-02-15] MEDS: METHYLPREDNISOLONE 125 MG INJ IV SCH (18:00)
[2022-02-15] MEDS ORDERED: METHYLPREDNISOLONE 125 MG INJ ONE (19:23)
[2022-02-15] MEDS ORDERED: ENOXAPARIN 40 MG/0.4 ML SQ ONE (19:24)
[2022-02-15] MEDS ORDERED: Levofloxacin 750mg IV 750 MG/150 ML BAG IV ONE (19:24)
[2022-02-15] MEDS ORDERED: ACETAMINOPHEN 500 MG TAB ONE (19:24)
[2022-02-15] MEDS ORDERED: NA CHLORIDE 0.9% 1,000 ML ONE (19:24)
[2022-02-15] MEDS: ALBUTEROL 2.5 MG/3 ML NEB SOL NEB SCH (20:00)
[2022-02-15] MEDS: IPRATROPIUM BROM 0.5MG/2.5ML NEB SCH (20:00)
[2022-02-15] MEDS: HYDROCODONE/APAP 10/325 TAB PO PRN (21:54)
[2022-02-15 23:10] VITALS: BMI 17.6
[2022-02-16] MEDS: METHYLPREDNISOLONE 125 MG INJ IV SCH ×4 (00:16→17:24)
[2022-02-16] MEDS: ALBUTEROL 2.5 MG/3 ML NEB SOL NEB SCH ×4 (02:00→19:51)
[2022-02-16] MEDS: IPRATROPIUM BROM 0.5MG/2.5ML NEB SCH ×4 (02:00→19:51)
[2022-02-16] MEDS: HYDROCODONE/APAP 10/325 TAB PO PRN ×4 (04:50→18:22)
[2022-02-16 05:30] LABS: Absolute Lymphocytes (CBC) 0.2 K/uL (0.7-4.9); Hematocrit 27.1 % (36.0-45.0); Lymphocytes % 5.9 % (15.3-44.8); MPV 7.1 fL (7.6-11.3); RBC Red Blood Cell Count 3.04 M/uL (3.86-4.86)
[2022-02-16 05:47] LABS: AST/SGOT 15 U/L (15-37); Albumin 2.3 g/dL (3.4-5.0); Alkaline Phosphatase 55 U/L (45-117); BUN Blood Urea Nitrogen 26 mg/dL (7-18); Bicarbonate 31 mmol/L (21-32); Bilirubin Total 0.3 mg/dL (0.2-1.0); Glomerular Filtration Rate 78 ml/min (=/>90); Glucose Level 146 mg/dL (74-106); HDL Cholesterol 75 mg/dL (40-60); LDL Cholesterol, Calculated 77 mg/dL (<130); Magnesium 2.3 mg/dL (1.8-2.4); NT PRO-BNP 1639 pg/mL (<450); Potassium 4.4 mmol/L (3.5-5.1); Protein, Total 6.7 g/dL (6.4-8.2); Sodium Level 135 mmol/L (136-145)
[2022-02-16 05:49] LABS: ALT/SGPT < 10 U/L (12-78)
[2022-02-16] MEDS: ENOXAPARIN 40 MG/0.4 ML SQ SCH (08:49)
--- NOTE | 2022-02-16 09:35 | EKG ---
Test Date: 2022-02-15 Test Time: 14:08:03 Glucose And Syrup Weigher: JONNY MEASUREMENT RESULTS: Intervals: Rate: 85 DC: QRSD: 72 QT: 372 QTc: 442 Kemmerer: P: 55 DC: QRS: 75 T: 63 INTERPRETIVE STATEMENTS: Atrial flutter with variable AV block with premature ventricular or aberrantly conducted complexes Low voltage QRS Abnormal ECG Compared to ECG 02/13/2022 11:42:24 Ventricular premature complex(es) now present Low QRS voltage now present Electronically Signed On 02-16-22 09:32:23 CDT by Randall Brown
--- NOTE | 2022-02-16 10:17 | P.HP ---
Certification for Inpatient Patient admitted to: Inpatient With expected LOS: >2 Midnights Patient will require the following post-hospital care: None Practitioner: I am a practitioner with admitting privileges, knowledge of patient current condition, hospital course, and medical plan of care. Services: Services provided to patient in accordance with Admission requirements found in Title 42 Section 412.3 of the Code of Federal Regulations Patient History Date of Service: 02/15/22 Reason for admission: Shortness of breath History of Present Illness: Patient is an 86-year-old female who came to the hospital with difficulty breathing. Patient was found to have acute COPD exacerbation as well as a questionable left lower lobe infiltrate. Patient will be admitted to the hospital for further treatment. Patient's BNP is also slightly elevated. Patient had an echocardiogram done about a year ago which did not reveal any systolic heart failure. Patient's to be admitted for treatment of COPD along with gentle diuresing. Patient follows up with local pulmonary and we will consult them. Patient wears home oxygen as well. Allergies clindamycin Allergy (Verified 04/28/20 19:09) unknown reaction codeine Allergy (Verified 04/28/20 19:09) unknown reaction Home Medications: Carvedilol [Coreg] 12.5 mg PO BIDWM 05/15/20 Gabapentin 300 mg PO TID 05/15/20 Pantoprazole [Protonix Tab*] 40 mg PO DAILY 05/15/20 Cholecalciferol (Vitamin D3) [Vitamin D3] 1,000 unit PO DAILY 06/26/20 Fluticasone/Umeclidin/Vilanter [Trelegy Ellipta 100-62.5-25] 1 each IH DAILY 06/26/20 Furosemide [Lasix] 20 mg PO DAILY 06/26/20 Melatonin [Melatonin*] 3 mg PO BEDTIME PRN PRN #30 tablet 07/01/20 Potassium Gluconate [Potassium] 99 mg PO DAILY 05/05/21 Albuterol Neb [Proventil 0.083% Neb Soln] 2.5 mg NEB Q4H PRN amp 05/14/21 Ensure Enlive 237 ml PO TID can 05/14/21 Ipratropium Neb [Atrovent*] 0.5 mg NEB [id number] amp 05/14/21 Mag Hydroxide 8% [Milk Of Magnesia*] 30 ml PO DAILYPRN PRN ucup 05/14/21 Oxycodone HCl 10 mg PO QID PRN #16 tablet 05/14/21 Polyethylene Glycol 3350 [Miralax] 17 gm PO DAILY PRN #30 powd.pack 05/14/21 Theophylline [Nate-Dur*] 200 mg PO BID tab 05/14/21 Trazodone [Desyrel*] 50 mg PO BEDTIME PRN PRN tablet 05/14/21 levoFLOXacin [Levaquin*] 500 mg PO DAILY #2 tab 05/14/21 predniSONE [Prednisone] 5 mg PO DAILY #60 tablet 05/14/21 - Past Medical/Surgical History Has patient received pneumonia vaccine in the past: Yes Diabetic: No -: Hypertension -: Chronic vertebral fractures -: Former smoker -: GERD with hiatal hernia -: Anemia of chronic disease -: Chronic pain -: Diastolic CHF with pulmonary hypertension -: Carpal tunnel disease -: COPD, end-stage -: Back surgery -: Appendectomy -: carpal tunnel sx -: tubal ligation Psychosocial/ Personal History: Patient is and lives with - Family History Father Medical History: Hypertension, Stroke Mother Medical History: Hypertension, Stroke Brother Medical History: Lung disease Sister Medical History: Heart disease - Social History Smoking Status: Former smoker Alcohol use: No CD- Drugs: No Caffeine use: Yes Place of Residence: Home Review of Systems 10-point ROS is otherwise unremarkable Physical Examination - Vital Signs Temperature: 97.8 F Blood Pressure: 166/80 Pulse: 73 Respirations: 18 Pulse Ox (%): 97 - Studies Laboratory Data (last 24 hrs) 02/15/22 15:00: PT 12.5, INR 1.13 02/15/22 15:00: WBC 4.4 D, Hgb 8.4 L, Hct 26.2 L D, Plt Count 171 02/15/22 15:00: Sodium 135 L, Potassium 4.2, BUN 32 H, Creatinine 0.86, Glucose 90, Magnesium 2.3, Total Bilirubin 0.4, AST 13 L, ALT < 10 L, Alkaline Phosphatase 51 Microbiology Data (last 24 hrs): 02/15/22 13:54 Blood - Blood Anaerobic Blood Culture - Final 02/15/22 13:03 Nasopharnyx Influenza Type A Antigen Screen - Final 02/15/22 13:03 Nasopharnyx Influenza Type B Antigen Screen - Final Assessment & Plan - Problems (Diagnosis) (1) AMBER (acute kidney injury) Current Visit: No Status: Acute (2) COPD exacerbation Current Visit: No Status: Acute (3) Congestive heart failure Current Visit: No Status: Chronic Qualifiers: (4) History of COPD Current Visit: No Status: Chronic (5) Hypertension Current Visit: No Status: Chronic Qualifiers: - Plan Plan: 1. Continue with albuterol and Atrovent nebs 2. Continue with IV steroids 3. Continue with IV antibiotic therapy 4. Pulmonary consultation 5. Patient is on home oxygen and will continue 6. Repeat chest x-ray in the morning 7. Out of bed and ambulate 8. GI and DVT prophylaxis Discharge Plan: Home Plan to discharge in: Greater than 2 days - Advance Directives Does patient have a Living Will: No Does patient have a Durable POA for Healthcare: No - Code Status/Comfort Care Code Status Assessed: Yes Code Status: Full Code Critical Care: No Time Spent Managing PTS Care (In Minutes): 45
--- NOTE | 2022-02-16 10:18 | P.PN ---
Subjective Date of Service: 02/16/22 Subjective: No new changes, No C/O voiced, Improving Review of Systems 10-point ROS is otherwise unremarkable Physical Examination - Vital Signs Temperature: 97.8 F Blood Pressure: 166/80 Pulse: 73 Respirations: 18 Pulse Ox (%): 97 - Physical Exam General: Alert, In no apparent distress, Oriented x3 HEENT: Atraumatic, PERRLA, EOMI Neck: Supple, JVD not distended Respiratory: Clear to auscultation bilaterally, Normal air movement Cardiovascular: Regular rate/rhythm, Normal S1 S2 Gastrointestinal: Normal bowel sounds, No tenderness Musculoskeletal: No tenderness Integumentary: No rashes Neurological: Normal speech, Normal tone, Normal affect Lymphatics: No axilla or inguinal lymphadenopathy - Studies Laboratory Data (last 24 hrs) 02/15/22 15:00: PT 12.5, INR 1.13 02/15/22 15:00: WBC 4.4 D, Hgb 8.4 L, Hct 26.2 L D, Plt Count 171 02/15/22 15:00: Sodium 135 L, Potassium 4.2, BUN 32 H, Creatinine 0.86, Glucose 90, Magnesium 2.3, Total Bilirubin 0.4, AST 13 L, ALT < 10 L, Alkaline Phosphatase 51 Microbiology Data (last 24 hrs): 02/15/22 13:54 Blood - Blood Anaerobic Blood Culture - Final 02/15/22 13:03 Nasopharnyx Influenza Type A Antigen Screen - Final 02/15/22 13:03 Nasopharnyx Influenza Type B Antigen Screen - Final Medications List Reviewed: Yes Assessment & Plan - Problems (Diagnosis) (1) COPD exacerbation Current Visit: No Status: Acute (2) AMBER (acute kidney injury) Current Visit: No Status: Acute (3) Congestive heart failure Current Visit: No Status: Chronic Qualifiers: Heart failure type: diastolic Heart failure chronicity: acute Qualified Code(s): I50.31 - Acute diastolic (congestive) heart failure (4) History of COPD Current Visit: No Status: Chronic (5) Hypertension Current Visit: No Status: Chronic Qualifiers: Hypertension type: primary hypertension - Plan Plan: continue plan of care as mentioned below 1. Continue with albuterol and Atrovent nebs 2. Continue with IV steroids 3. Continue with IV antibiotic therapy 4. Pulmonary consultation 5. Patient is on home oxygen and will continue 6. Repeat chest x-ray in the morning 7. Out of bed and ambulate 8. GI and DVT prophylaxis Discharge Plan: Home Plan to discharge in: Greater than 2 days - Advance Directives Does patient have a Living Will: No Does patient have a Durable POA for Healthcare: No - Code Status/Comfort Care Code Status: Full Code Critical Care: No Time Spent Managing PTS Care (In Minutes): 45
[2022-02-17] MEDS: HYDROCODONE/APAP 10/325 TAB PO PRN ×3 (00:38→23:09)
[2022-02-17] MEDS: METHYLPREDNISOLONE 125 MG INJ IV SCH ×4 (00:38→17:30)
[2022-02-17] MEDS: NA CHLORIDE 0.9% 1,000 ML IV SCH (00:42)
[2022-02-17] MEDS: IPRATROPIUM BROM 0.5MG/2.5ML NEB SCH ×4 (02:00→20:30)
[2022-02-17] MEDS: ALBUTEROL 2.5 MG/3 ML NEB SOL NEB SCH ×4 (02:00→20:30)
[2022-02-17 06:01] LABS: Absolute Lymphocytes (CBC) 0.4 K/uL (0.7-4.9); Hematocrit 27.2 % (36.0-45.0); Lymphocytes % 7.1 % (15.3-44.8); MPV 7.2 fL (7.6-11.3); RBC Red Blood Cell Count 3.03 M/uL (3.86-4.86)
[2022-02-17 06:22] LABS: Magnesium 2.6 mg/dL (1.8-2.4); Potassium 4.6 mmol/L (3.5-5.1)
--- NOTE | 2022-02-17 08:17 | RAD REPORT ---
EXAM DESCRIPTION: Jairon Single View02/17/2022 4:39 am CLINICAL HISTORY: Chest pain COMPARISON: February 15, 2022 FINDINGS: No significant change in the bilateral pulmonary opacities. Heart remains enlarged. Small pleural effusions suspected IMPRESSION: No significant change in the mild to moderate bilateral pulmonary opacities which could represent pulmonary edema or pneumonia
[2022-02-17] MEDS ORDERED: FUROSEMIDE 20 MG/ 2ML VIAL IV ONE (08:30)
[2022-02-17] MEDS: ENOXAPARIN 40 MG/0.4 ML SQ SCH (09:07)
[2022-02-17] MEDS ORDERED: levoFLOXacin 750 MG TAB PO SCH (18:00)
[2022-02-18] MEDS: METHYLPREDNISOLONE 125 MG INJ IV SCH ×2 (00:46→05:34)
[2022-02-18] MEDS: ALBUTEROL 2.5 MG/3 ML NEB SOL NEB SCH ×2 (02:00→09:24)
[2022-02-18] MEDS: IPRATROPIUM BROM 0.5MG/2.5ML NEB SCH ×2 (02:00→09:24)
[2022-02-18] MEDS ORDERED: HYDROCODONE/APAP 10/325 TAB PO PRN (03:54)
[2022-02-18] MEDS ORDERED: PANTOPRAZOLE 40MG TABLET PO SCH (07:30)
[2022-02-18] MEDS ORDERED: carvediloL 12.5 MG TAB PO SCH (08:00)
[2022-02-18] MEDS ORDERED: GABAPENTIN 300 MG CAP PO SCH (09:00)
[2022-02-18] MEDS ORDERED: FUROSEMIDE 20 MG TABLET PO SCH (09:00)
[2022-02-18] MEDS ORDERED: FOLIC ACID 1 MG TABLET PO SCH (09:00)
[2022-02-18] MEDS ORDERED: POLYETHYL GLY 3350 17 GM/DOSE PO SCH (09:00)
[2022-02-18] MEDS ORDERED: DOCUSATE NA 100 MG CAP PO SCH (09:00)
[2022-02-18] MEDS ORDERED: POTASSIUM CL SA 10 MEQ TAB PO SCH (09:00)
[2022-02-18] MEDS: ENOXAPARIN 40 MG/0.4 ML SQ SCH (09:07)
[2022-02-18] MEDS: NA CHLORIDE 0.9% 1,000 ML IV SCH (09:21)
--- NOTE | 2022-02-18 09:26 | P.PN ---
Date of Service: 02/17/22 Subjective Subjective: Patient respiratory status has improved. Continue with current treatment Review of Systems 10-point ROS is otherwise unremarkable Physical Examination - Vital Signs Reviewed - Physical Exam General: Alert, In no apparent distress, Oriented x3 Respiratory: Clear to auscultation bilaterally, Normal air movement Cardiovascular: Regular rate/rhythm, Normal S1 S2 Gastrointestinal: Normal bowel sounds, No tenderness Neurological: Normal speech, Normal tone, Normal affect Assessment & Plan - Problems (Diagnosis) (1) COPD exacerbation Current Visit: No Status: Acute (2) AMBER (acute kidney injury) Current Visit: No Status: Acute (3) Congestive heart failure Current Visit: No Status: Chronic Qualifiers: Heart failure type: diastolic Heart failure chronicity: acute Qualified Code(s): I50.31 - Acute diastolic (congestive) heart failure (4) History of COPD Current Visit: No Status: Chronic (5) Hypertension Current Visit: No Status: Chronic Qualifiers: Hypertension type: primary hypertension - Plan Continue plan of care mention below continue plan of care as mentioned below 1. Continue with albuterol and Atrovent nebs 2. Continue with IV steroids 3. Continue with IV antibiotic therapy 4. Pulmonary consultation 5. Patient is on home oxygen and will continue 6. Repeat chest x-ray in the morning 7. Out of bed and ambulate 8. GI and DVT prophylaxis
[2022-02-18] MEDS ORDERED: LOSARTAN POTASSIUM 50 MG TABLET PO ONE (09:27)
[2022-02-18] MEDS ORDERED: FUROSEMIDE 20 MG/ 2ML VIAL IV ONE (09:27)
[2022-02-18 10:07] VITALS: O2SAT 97
--- NOTE | 2022-02-18 12:46 | P.CNS ---
Date of Consult: 02/18/22 Reason for Consult: Pneumonia Chief Complaint: Shortness of breath History of Present Illness: Patient is 86 years of age with a history of terminal COPD admitted with onset of fever cough congestion mated with bilateral pneumonia she went to the emergency room currently she is doing a little better still coughing up some phlegm patient did not tolerate CPAP before Allergies clindamycin Allergy (Verified 04/28/20 19:09) unknown reaction codeine Allergy (Verified 04/28/20 19:09) unknown reaction Home Medications: Carvedilol [Coreg] 12.5 mg PO BIDWM 05/15/20 Acetaminophen [Tylenol] 2 cap PO Q4HP PRN 02/16/22 Albuterol Sulfate [Proair Hfa] 2 puff PO Q6HR 02/16/22 Cholecalciferol (Vitamin D3) [Vitamin D3] 1 tab PO EVERY 7TH DAY 02/16/22 Cyanocobalamin (Vitamin B-12) [Vitamin B-12] 1 tab PO DAILY 02/16/22 Docusate [Colace Cap*] 1 cap PO DAILY 02/16/22 Ferrous Sulfate 1 tab PO DAILY WITH BREAKFAST 02/16/22 Fluticasone/Umeclidin/Vilanter [Trelegy Ellipta 100-62.5-25] 1 puff PO DAILY 02/16/22 Folic Acid 1 tab PO DAILY 02/16/22 Gabapentin 1 cap PO TID 02/16/22 Hydrocodone Bit/Acetaminophen [Hydrocodon-Acetaminophn 10-325] 1 tab PO Q6HP PRN 02/16/22 Loratadine [Claritin*] 1 tab PO DAILY 02/16/22 Melatonin 1 tab PO BEDTIME 02/16/22 Omeprazole 1 tab PO DAILY 02/16/22 Pantoprazole [Protonix Tab*] 1 tab PO DAILY 02/16/22 Polyethylene Glycol 3350 [Miralax] 1 tomas PO DAILY 02/16/22 Potassium Chloride [Klor-Con 10] 1 tab PO DAILY 02/16/22 Theophylline Anhydrous [Nate-24] 1 cap PO DAILY 02/16/22 Albuterol Neb [Proventil 0.083% Neb Soln] 2.5 mg NEB [id number] #60 amp 02/18/22 Amlodipine [Norvasc*] 5 mg PO DAILY #30 tab 02/18/22 Furosemide [Lasix] 40 mg PO DAILY #30 tab 02/18/22 Ipratropium Neb [Atrovent*] 0.5 mg NEB [id number] #60 amp 02/18/22 Losartan Potassium [Cozaar*] 50 mg PO DAILY #30 tablet 02/18/22 levoFLOXacin [Levaquin*] 750 mg PO Q48H #4 tab 02/18/22 - Past Medical/Surgical History Diabetic: No -: Hypertension -: Chronic vertebral fractures -: Former smoker -: GERD with hiatal hernia -: Anemia of chronic disease -: Chronic pain -: Diastolic CHF with pulmonary hypertension -: Carpal tunnel disease -: COPD, end-stage -: Back surgery -: Appendectomy -: carpal tunnel sx -: tubal ligation Psychosocial/ Personal History: Patient is and lives with - Family History Father Medical History: Hypertension, Stroke Mother Medical History: Hypertension, Stroke Brother Medical History: Lung disease Sister Medical History: Heart disease - Social History Smoking Status: Unknown if ever smoked Alcohol use: No CD- Drugs: No Caffeine use: Yes Place of Residence: Home Review of Systems 10-point ROS is otherwise unremarkable General: Weakness Respiratory: Cough, Shortness of Breath Physical Examination Temp Pulse Resp BP Pulse Ox 98.0 F 68 14 190/82 H 98 02/18/22 08:00 02/18/22 10:36 02/18/22 09:55 02/18/22 10:36 02/18/22 09:55 General: Alert, Oriented x3 Respiratory: Clear to auscultation bilaterally, Diminished Cardiovascular: No edema, Regular rate/rhythm, Normal S1 S2 Gastrointestinal: Soft and benign, Non-distended - Problems (1) COPD exacerbation Current Visit: No Status: Acute Plan: Patient is 86 years of age admitted with COPD exacerbation most likely underlying pneumonia chemistries reviewed white count is normal patient was febrile on admission vital signs blood pressure is elevated patient is high risk for resistant organisms agree with levofloxacin also add doxycycline use dose of prednisone she has refused CPAP in the past before oxygenation satisfactory add spironolactone blood pressure elevated possible discharge tomorrow on levofloxacin and doxycycline for 10 days
[2022-02-18 12:49] VITALS: BP 148/75; TEMP 98.8
[2022-02-18] MEDS ORDERED: SPIRONOLACTONE 25 MG TABLET PO SCH (13:00)
[2022-02-18] MEDS ORDERED: DOXYCYCLINE 100 MG CAP PO SCH (13:00)
[2022-02-18] MEDS ORDERED: predniSONE 20 MG TAB PO SCH (13:00)
[2022-02-18] MEDS ORDERED: MELATONIN 3 MG TABLET PO SCH (21:00)
[2022-02-19] MEDS ORDERED: FUROSEMIDE 40 MG TABLET PO SCH (09:00)
== END 2022-02-18 13:50 | disposition home health service (06) | DRG 871 ==
LOC: ER 12:47 → ERHOLD 17:25 → 2ND 20:08
PROVIDERS: ADMIT Hospitalist; ATTEND Hospitalist
DX: A41.9 Sepsis, unspecified organism (principal); J18.9 Pneumonia, unspecified organism; G93.41 Metabolic encephalopathy; I50.33 Acute on chronic diastolic (congestive) heart failure; N17.9 Acute kidney failure, unspecified; J44.0 Chronic obstructive pulmonary disease with (acute) lower respiratory infection; J44.1 Chronic obstructive pulmonary disease with (acute) exacerbation; R65.20 Severe sepsis without septic shock; K21.9 Gastro-esophageal reflux disease without esophagitis; I11.0 Hypertensive heart disease with heart failure; K44.9 Diaphragmatic hernia without obstruction or gangrene; Z87.891 Personal history of nicotine dependence; Z20.822 Contact with and (suspected) exposure to COVID-19
CPT/HCPCS: 36415; 51702; 70450; 71045; 74177; 80048; 80053; 80061; 80076; 81003; 83605; 83735; 83880; 84145; 84484; 85025; 85610; 87040; 87077; 87186; 87205; 87804; 93005; 94640; 96361; 96365; 96366; 96374; 96375; 99284; 99285; J0456; J1650; J1940; J2405; J2930; J3010; J7030; J7040; J7050; Q9967; U0003

== ENCOUNTER 2022-02-27 06:17 | Emergency (ER) | payer OTHER ==
--- OUTSIDE RECORDS SUMMARY | 2022-02-27 06:20 | XMS REPORT | Continuity of Care Document ---
:1935 Author Organization [facility] t Address [address] [place] [address] [address] [place] [address] Care Team Providers Name Role Phone Delicia LOPEZ Primary Care Physician ERIN Attending Clinician Unavailable ERIN Attending Clinician Unavailable Erin GURROLA Attending Clinician Doctor Unassigned, Name Attending Clinician Unavailable Matt SINGH Attending Clinician Theodore Mendez DO Attending Clinician Darrius LOPEZ S Attending Clinician Gregoria LOPEZ Attending Clinician Cayden VERDUZCO Attending Clinician Rodney LOPEZ Attending Clinician Pob, Lab Main Attending Clinician Unavailable Gregoria LOPEZ Admitting Clinician Rodney LOPEZ Admitting Clinician Payers Payer Name Policy Type Policy Number Effective Date Expiration Date S alphonso MEDICARE PART A \T\ [id number] 2002 B 00:00:00 COMMERCIAL [id number] 2014 NON-CONTRACT 00:00:00 GENERIC Problems Condition Condition Condition Status Onset Resolution [...] severe 00:00: [place] protein-ca protein-ca 00 Me dical gema ribeiro Branch malnutriti malnutriti on on Anemia Anemia Disease Active 2019-10 Univers 1-03 ity of 00:00: [place] 00 Medical Branch Pneumonia Pneumonia Disease Active 2019-10 Uni vers due to due to 03 [place] [...] 2017-10 Unive rs troponin I troponin I 2-02 it y of level level 00:00: [place] [...] chronic 2-02 ity of diastolic diastolic 00:00: [place] s heart heart 00 Medical failure failure Branch DEAN DEAN Disease Active 2017-10 Univers (dyspnea (dyspnea 2-01 ity of on on 00:00: [place] exertion) exertion) [facility] Branch Bilateral Bilateral Disease Active 2017-10 Uni [...] Childhood U nivers ty to See comments 6-19 allergy ity of adverse 00:00: [place] reaction [...] Quantity Comments Source Exposure to Not sure University of SARS-CoV-2 (event) [facility] Alcohol intake 2021-12-17 2021-12-17 Current University of 00:00:00 00:00:00 non-drinker of [facility] alcohol Branch (finding) Cigarettes smoked 2019-01-05 2019-01-05 Univers ity of current (pack per 00:00:00 00:00:00 [place] ) - Reported Branch Cigarette 2019-01-05 2019-01-05 University of pack-years 00:00:00 00:00:00 [facility] Tobacco use and 2019-01-05 2019-01-05 Never used Universit y of exposure 00:00:00 00:00:00 [facility] History of tobacco 2018-09-02 Cigarette Smoker University of use 00:00:00 [facility] Sex Ass[birth year] At [birth year] Universit y of 00:00:00 00:00:00 [facility] Smoking Status Start Date Stop Date Source Former smoker 2019-01-05 00:00:00 2019-01-05 00:00:00 Universi ty of [facility] Current every day 2018-04-18 00:00:00 [facility] smoker Medications Ordered Filled Start Stop Current Ordering Indication Dosage Frequency Signature Comments Components Source Medication Medication Date Date Medication? Clinician (SIG) Name Name doxycycline Yes [id number] 100mg Take 1 Univers hyclate 100 4-18 capsule by it y of mg capsule 00:00: mouth [place] 00 every 12 Medical (twelve) Branch hours. doxycycline 2021-0 2021- Yes [id number] 100mg Take 1 Univers hyclate 100 4-18 04-26 capsule by i ty of mg capsule 00:00: 04:59 mouth [place] 00 :00 every 12 Medical (twelve) Branch hours for 7 days. fluticasone Yes [id number] 1{puff} Inhale 1 Univers -umeclidin- 3-17 Puff ity of vilanter 00:00: daily. [place] (TRELEGY 00 Medical ELLIPTA) Branch 100-62.5-25 mcg DsDv fluticasone Yes [id number] 1{puff} Inhale 1 Univers -umeclidin- 3-17 Puff ity of vilanter 00:00: daily. [place] (TRELEGY 00 Medical ELLIPTA) Branch 100-62.5-25 mcg DsDv fluticasone 0 Yes [id number] 1{puff} Inhale 1 Univers -umeclidin- 3-17 Puff ity of vilanter 00:00: daily. [place] (TRELEGY 00 Medical ELLIPTA) Branch 100-62.5-25 mcg DsDv fluticasone Yes [id number] 1{puff} Inhale 1 Univers -umeclidin- 3-17 Puff ity of vilanter 00:00: daily. [place] (TRELEGY 00 Medical ELLIPTA) Branch 100-62.5-25 mcg DsDv lidocaine 5 Yes [id number] 1{patch Apply 1 Univers % (700 8-25 } Patch to ity of mg/patch) 00:00: area(s) [place] patch 00 daily. Medical Branch lidocaine 5 Yes [id number] 1{patch Apply 1 Univers % (700 8-25 } Patch to ity of mg/patch) 00:00: area(s) [place] patch 00 daily. Medical Branch lidocaine 5 Yes [id number] 1{patch Apply 1 Univers % (700 8-25 } Patch to ity of mg/patch) 00:00: area(s) [place] patch 00 daily. Medical Branch lidocaine 5 Yes [id number] 1{patch Apply 1 Univers % (700 8-25 } Patch to ity of mg/patch) 00:00: area(s) [place] patch 00 daily. Medical Branch tiotropium 2021- No [id number] 18ug Inhale 1 Univers 18 mcg 8-25 03-17 capsule ity of inhalation 00:00: 00:[place]. [place] :00 [place] tiotropium 2021- No [id number] 18ug Inhale 1 Univers 18 mcg 8-25 [...] tablet 00 daily. Medical Branch ipratropium Yes [id number] 3mL Inhale 3 Univers -albuteroL 8-24 mL [...] by ity o f 00:00: mouth at [place] 00 bedtime. Medical Branch pantoprazol Yes [id number] 40mg Take 1 Univers e 40 mg EC 8-24 tablet by ity of tablet 00:00: mouth [place] 00 daily. Medical Branch theophyllin Yes 200mg Take 1 Uni vers e (MIKKI-24) 8-24 capsule by it y of 200 mg 24 00:00: mouth [place] hr capsule 00 daily. Medical Branch vitamin Yes [id number] 1000ug Take 1 Un rubio B-12 1,000 8-24 tablet by ity of mcg tablet 00:00: mouth [place] 00 daily. Medical Branch polyethylen Yes 17g Take 17 g U nivers e glycol 8-24 by mouth ity of 3350 00:00: daily. [place] (MIRALAX) 00 Medical 17 Branch gram/dose powder [...] tablet 00 daily. Medical Branch ipratropium Yes [id number] 3mL Inhale 3 Univers -albuteroL 8-24 mL [...] [place] 00 bedtime. Medical Branch pantoprazol Yes [id number] 40mg Take 1 Univers e 40 mg EC 8-24 tablet by ity of tablet 00:00: mouth [place] 00 daily. Medical Branch theophyllin Yes 200mg Take 1 Uni vers e (MIKKI-24) 8-24 capsule by it y of 200 mg 24 00:00: mouth [place] hr capsule 00 daily. Medical Branch vitamin Yes [id number] 1000ug Take 1 Un rubio B-12 1,000 8-24 tablet by ity of mcg tablet 00:00: mouth [place] 00 daily. Medical Branch polyethylen Yes 17g Take 17 g U nivers e glycol 8-24 by mouth ity of 3350 00:00: daily. [place] (MIRALAX) 00 Medical 17 Branch gram/dose powder [...] tablet 00 daily. Medical Branch ipratropium Yes [id number] 3mL Inhale 3 Univers -albuteroL 8-24 mL [...] [place] 00 bedtime. Medical Branch pantoprazol Yes [id number] 40mg Take 1 Univers e 40 mg EC 8-24 tablet by ity of tablet 00:00: mouth [place] 00 daily. Medical Branch theophyllin Yes 200mg Take 1 Uni vers e (MIKKI-24) 8-24 capsule by it y of 200 mg 24 00:00: mouth [place] hr capsule 00 daily. Medical Branch vitamin Yes [id number] 1000ug Take 1 Un rubio B-12 1,000 8-24 tablet by ity of mcg tablet 00:00: mouth [place] 00 daily. Medical Branch polyethylen Yes 17g Take 17 g U nivers e glycol 8-24 by mouth ity of 3350 00:00: daily. [place] (MIRALAX) 00 Medical 17 Branch gram/dose powder [...] tablet 00 daily. Medical Branch ipratropium Yes [id number] 3mL Inhale 3 Univers -albuteroL 8-24 mL [...] by ity o f 00:00: mouth at [place] 00 bedtime. Medical Branch pantoprazol Yes [id number] 40mg Take 1 Univers e 40 mg EC 8-24 tablet by ity of tablet 00:00: mouth [place] 00 daily. Medical Branch theophyllin Yes 200mg Take 1 Uni vers e (MIKKI-24) 8-24 capsule by it y of 200 mg 24 00:00: mouth [place] hr capsule 00 daily. Medical Branch vitamin Yes [id number] 1000ug Take 1 Un rubio B-12 1,000 8-24 tablet by ity of mcg tablet 00:00: mouth [place] 00 daily. Medical Branch polyethylen Yes 17g Take 17 g U nivers e glycol 8-24 by mouth ity of 3350 00:00: daily. [place] (MIRALAX) 00 Medical 17 Branch gram/dose powder [...] Puff ity of vilanter 00:00: 00:00 daily. [place] (TRELEGY 00 :00 Medical ELLIPTA) Branch 100-62.5-25 mcg DsDv fluticasone 2022- No [id number] 1{puff} Inhale 1 Univers propion-chuck 8-24 03-17 Puff every i ty of meteroL 00:00: 00:00 12 [place] 250-50 00 :00 (twelve) Medical mcg/dose hours. Branch inhalation disk fluticasone 2022- No 1{puff} Inhale 1 Univers -umeclidin- 8-24 03-17 Puff ity of vilanter 00:00: 00:00 daily. [place] (TRELEGY 00 :00 Medical ELLIPTA) Branch 100-62.5-25 mcg DsDv fluticasone 0 2021- No [id number] 1{puff} Inhale 1 Univers propion-chuck 8-24 03-17 Puff every i ty of meteroL 00:00: 00:00 12 [place] 250-50 00 :00 (twelve) Medical mcg/dose hours. [...] Immunizations Ordered Filled Immunization Date Status Comments Sour e Immunization Name Name Influenza Virus 2020-07-06 Completed Universit y of Vaccine 00:00:00 [facility] Influenza Virus 2020-07-06 Completed Universit y of Vaccine 00:00:00 [facility] Influenza Virus 2020-07-06 Completed Universit y of Vaccine 00:00:00 [facility] Influenza Virus 2020-07-06 Completed Universit y of Vaccine 00:00:00 [facility] Influenza High Dose 2019-09-22 Completed Unive rsity of 00:00:00 [facility] Influenza High Dose 2019-09-22 Completed Unive rsity of 00:00:00 [facility] Influenza High Dose 2019-09-22 Completed Unive rsity of 00:00:00 [facility] Influenza High Dose 2019-09-22 Completed Unive rsity of 00:00:00 [facility] PPD (TB) 2019-07-10 Completed University of 00:00:00 [facility] PPD (TB) 2019-07-10 Completed University of 00:00:00 [facility] PPD (TB) 2019-07-10 Completed University of 00:00:00 [facility] PPD (TB) 2019-07-10 Completed University of 00:00:00 [facility] Vital Signs Vital Name Observation Time Observation Value Comments Source Systolic blood 2021-12-17 177 mm[Hg] University of pressure 19:10:00 [facility] Diastolic blood 2021-12-17 77 mm[Hg] [place] o f pressure 19:10:00 [facility] Heart rate 2021-12-17 77 /min [facility] 19:10:00 [facility] Respiratory rate 2021-12-17 23 /min University 19:06:00 [facility] Body height 2021-12-17 152.4 cm [facility] 19:06:00 [facility] Body weight 2021-12-17 43.092 kg [facility] 19:06:00 [facility] BMI 2021-12-17 18.55 kg/m2 University 19:06:00 [facility] Oxygen saturation 2021-12-17 78 /min with deep [facility] Arterial blood 19:06:00 breaths 94% [facility] by Pulse oximetry [place] Procedures Procedure Date / Time Performed Performing Clinician [facility] HOME HEALTH - OTHER 2022-01-05 05:01:00 Doctor Unassigned, No Un iversity of [place] Name [facility] Plan of Care Planned Activity Planned Date Details Comments Source Future Scheduled Test 65+ PNEUMOCOCCAL Me [facility] VACCINE (1 of 2 - PPSV23) [code = 65+ PNEUMOCOCCAL VACCINE (1 of 2 - PPSV23)] Future Scheduled Test COVID-19 VACCINE (1) [facility] [code = COVID-19 VACCINE (1)] Future Scheduled Test SHINGLES VACCINES (#1) [facility] [code = SHINGLES VACCINES (#1)] Future Scheduled Test INFLUENZA VACCINE [code [facility] = INFLUENZA VACCINE] Encounters Start End Encounter Admission Attending Care Care Encounter Source Date/Time Date/Time Type Type Clinicians Facility Department ID 2022-04-26 2022-04-26 Outpatient R JUWAN KHAN [facility] [id number] Univers 11:00:00 11:00:00 JUWAN KHAN [id number] i ty of [facility] 2022-04-26 2022-04-26 Outpatient R JUWAN KHAN [facility] 10 [id number] Univers 11:00:00 11:00:00 JUWAN KHAN i ty of [facility] 2022-01-11 2022-01-11 Telephone Erin [facility] [id number] Univers 00:00:00 00:00:00 Juwan MARQUEZ [id number] i ty of [place] [id number] [place] PROF[place] [phone] T[place] dical NAL [address] [place] [address] 2022-01-05 2022-01-05 Orders Doctor YESSENIA [id number] Univers 00:00:00 00:00:00 Only Unassigned, GISELA [id number] ity of [place] [facility] [id number] N[place] as [phone] [address] 2021-12-17 2021-12-17 Office Erin [facility] [id number] Univers 14:00:00 14:30:00 Visit Juwan MARQUEZ [id number] i ty of [place] [id number] PROF[place] [phone] [place] dical NAL [address] [place] [address] 2021-12-17 2021-12-17 Outpatient R JUWAN KHAN [facility] 10 [id number] Univers 14:00:00 14:00:00 JUWAN KHAN i ty of [facility] 2020-08-11 2020-08-11 Transition Fred Gutierrez [id number] 00:00:00 00:00:00 of Care Lissa Willson [id number] [place] [id number] 2020-08-02 2020-08-09 Hospital Danae Mendez [facility] [id number] 18:18:00 17:46:00 Encounter Joshua Rizoclaudia Katherine Marquez [id number] 0 Lorene Kinney [place] [id number] [place] [id number] [id number] 2020-08-05 2020-08-05 Transition Fred Gutierrez [id number] 00:00:00 00:00:00 of Care Lissa Willson [id number] [place] [id number] [id number] 2020-08-01 2020-08-02 Emergency Cecilia Rodarte [facility] [id number]. [id number] 13:38:00 14:03:00 Kris Stevens [id number] [place] [id number] [place] [id number] [id number] 2020-07-21 2020-07-21 Orders Doctor YESSENIA [id number] 00:00:00 00:00:00 Only Unassigned, GISELA [id number] [place] [facility] [id number] 2019-12-20 2019-12-20 Healthcare Project Manager James Maki [facility] [id number] 14:10:01 14:34:05 Visit Lab Main [place] [id number] [place] [id number] [facility] [phone] [facility] Results Test Description Test Time Test Comments Results Result Comments Source SARS-COV2/RT-PCR ([facility]) 2020-04-28 19:12:00 Test Item Value Reference Range Interpretation Comme nts SARS-COV2/RT-PCR (test code = 3442476) Negative Not Detected, N egative, See external report for linked test SARS-COV-2 PERFORMING LAB (test code = [facility] [id number]) Negative results do not preclude SARS-CoV-2 infection [...] of the Act.Fact Sheet for Healthcare Pro viders:https://www.[employer]/Documents/Xpert%20Xpress%20SARS%20CoV-2/Fact%20Sh eets/3023802%95TOPZ-NAV-5%20HEALTHCARE%20PROVIDERS%20FACT%20SHEET.pdfFact Sheet for Healthcare Patients:https://www.[employer]/Documents/Xpert%20Xpress%20SARS%20CoV-2/Fact%20Sheets/302-3801%20SARS-COV -2%20PATIENT%20FACT%20SHEET.pdfPerforming Laboratory:[place] [address], [place] [address]OINB-GIW5/RT-PCR ([facility]) 2020-03-08 04:10:00 Test Item Value Reference Range Interpretation Comments SARS-COV2/RT-PCR (test Not Detected Not Detected, Negative code = [id number]) SARS-COV-2 PERFORMING LAB [facility] (test code = 3957882) Negative results do not preclude SARS-CoV-2 infection [...] of the Act.Fact Sheet for Healthcare Pro viders:https://www.[employer]/Documents/Xpert%20Xpress%20SARS%20CoV-2/Fact%20Sh eets/3023802%92ZUQZ-OLN-3%20HEALTHCARE%20PROVIDERS%20FACT%20SHEET.pdfFact Sheet for Healthcare Patients:https://www.[employer]/Documents/Xpert%20Xpress%20SARS%20CoV-2/Fact%20Sheets/3023801%20SARS-COV -2%20PATIENT%20FACT%20SHEET.pdfPerforming Laboratory:[facility] [address]
[2022-02-27 08:15] LABS: Absolute Lymphocytes (CBC) 1.4 K/uL (0.7-4.9); Hematocrit 29.4 % (36.0-45.0); Lymphocytes % 18.7 % (15.3-44.8); MPV 6.8 fL (7.6-11.3); RBC Red Blood Cell Count 3.34 M/uL (3.86-4.86)
--- NOTE | 2022-02-27 08:28 | RAD REPORT ---
EXAM DESCRIPTION: USExtremity Venous Uni Ltd02/27/2022 8:14 am CLINICAL HISTORY: Right leg pain and swelling. COMPARISON: None. FINDINGS: Right common femoral, superficial femoral, popliteal and right posterior tibial veins are compressible and demonstrate augmentation. Doppler demonstrates good flow. Grayscale, color and spectral analysis performed on all vessels IMPRESSION: No evidence of deep venous thrombosis involving the right lower extremity.
[2022-02-27 08:44] LABS: Potassium 3.7 mmol/L (3.5-5.1)
[2022-02-27 10:03] LABS: Blood Morphology Comment NOT SEEN (NOT SEEN); Platelet Estimate ADEQ; White Blood Cell Scan OK (OK)
[2022-02-27] MEDS ORDERED: NA CHLORIDE 0.9% 500 ML ONE (10:31)
--- NOTE | 2022-02-27 14:19 | ER ---
Nurse's Notes [facility] Name: Allison Vickers Age: 86 yrs Sex: Female : 1935 Arrival Date: 02/27/2022 Time: 06:22 Bed 13 Private MD: Diagnosis: Right calf pain and swelling - improved;Cellulitis of right lower limb-foot Presentation: 02/27 06:22 Chief complaint: EMS states: Patient got up to use restroom and noticed swollen legs ke1 and red spots on feet. Patient was recently d/c from [facility] for PNA. Coronavirus screen: Vaccine status: Patient reports receiving the 2nd dose of the covid vaccine. Ebola Screen: No symptoms or risks identified at this time. Initial Sepsis Screen: Does the patient meet any 2 criteria? No. Patient's initial sepsis screen is negative. Does the patient have a suspected source of infection? No. Patient's initial sepsis screen is negative. Risk Assessment: Do you want to hurt yourself or someone else? Patient reports no desire to harm self or others. Onset of symptoms was February 27, 2022. 06:22 Method Of Arrival: EMS ke1 06:22 Acuity: JESUS 3 ke1 Triage Assessment: 06:31 General: Appears in no apparent distress. Behavior is calm, appropriate for age. Pain: ke1 Denies pain. Cardiovascular: Edema BLE. Respiratory: Respiratory effort is even, unlabored. Derm: RED SPOTS ON FEET. Historical: - Allergies: 06:30 Clindamycin; ke1 06:30 Codeine; ke1 - PMHx: 06:30 ADD/ADHD; Arthritis; carpal tunnel syndrome; CHF; chronic bronchitis; Chronic pain; ke1 COPD; diverticulosis; hiatal hernia; Hypertension; IRON DEFICIENCY ANEMIA; - PSHx: 06:30 Appendectomy; Ligation of fallopian tube; back; ke1 - Immunization history:: Client reports receiving the 2nd dose of the Covid vaccine. - Social history:: Smoking status: Patient reports the use of cigarette tobacco products, Patient/guardian denies using tobacco, the patient reports quitting approximately 3 years ago. Screenin:34 Abuse screen: Denies threats or abuse. Nutritional screening: No deficits noted. ke1 Tuberculosis screening: No symptoms or risk factors identified. Fall Risk No fall in past 12 months (0 pts). No secondary diagnosis (0 pts). No IV (0 pts). Ambulatory Aid- None/Bed Rest/Nurse Assist (0 pts). Gait- Normal/Bed Rest/Wheelchair (0 pts) Mental Status- Oriented to own ability (0 pts). Total Francisco Fall Scale indicates No Risk (0-24 pts). Assessment: 06:40 Reassessment: SEE TRIAGE. ke1 09:42 Reassessment: Patient appears in no apparent distress at this time. Patient and/or jd3 family updated on plan of care and expected duration. Pain level reassessed. Patient is alert, oriented x 3, equal unlabored respirations, skin warm/dry/pink. provider notified of pt's wishes to go home Patient states feeling better. 10:33 Reassessment: Patient appears in no apparent distress at this time. Patient and/or jd3 family updated on plan of care and expected duration. Pain level reassessed. Patient is alert, oriented x 3, equal unlabored respirations, skin warm/dry/pink. pt reported understanding on plan of care. 11:07 Reassessment: Patient and/or family updated on plan of care and expected duration. Pain jd3 level reassessed. Patient is alert, oriented x 3, equal unlabored respirations, skin warm/dry/pink. assisted pt to bedside toilet. 12:09 Reassessment: Patient appears in no apparent distress at this time. No changes from jd3 previously documented assessment. Patient and/or family updated on plan of care and expected duration. Pain level reassessed. Patient is alert, oriented x 3, equal unlabored respirations, skin warm/dry/pink. awaiting blood results. 14:10 Reassessment: Patient appears in no apparent distress at this time. Patient and/or jd3 family updated on plan of care and expected duration. Pain level reassessed. Patient is alert, oriented x 3, equal unlabored respirations, skin warm/dry/pink. provider at bedside. 14:59 Reassessment: Patient appears in no apparent distress at this time. Patient and/or jd3 family updated on plan of care and expected duration. Pain level reassessed. Patient is alert, oriented x 3, equal unlabored respirations, skin warm/dry/pink. Patient states feeling better. Vital Signs: 06:22 BP 123 / 62; Pulse 64; Resp 18; Temp 97.8; Pulse Ox 99% on R/A; Weight 45.36 kg; Height ke1 5 ft. 4 in. (162.56 cm); Pain 0/10; 14:10 BP 112 / 76; Pulse 16; Resp 19 S; Pulse Ox 99% on 3 lpm NC; jd3 06:22 Body Mass Index 17.16 (45.36 kg, 162.56 cm) ke1 ED Course: 06:22 Patient arrived in ED. ke1 06:22 Kenrick Ramirez, RN is Primary Nurse. ke1 06:30 Triage completed. ke1 06:35 Bed in low position. Call light in reach. Side rails up X 1. Side rails up X2. ke1 06:41 Oxygen administration via nasal cannula \T\ 3L/min. ke1 07:31 Peter Guerrero MD is Attending Physician. kdr 08:03 Chem 7 Sent. mb7 08:03 CBC with Diff Sent. mb7 08:16 US Extremity Venous Unilateral Ltd In Process Unspecified. EDMS 08:19 Door closed. Noise minimized. Warm blanket given. mb7 08:26 Primary Nurse role handed off by Kenrikc Ramirez, SAMANTHA jd3 08:26 Shaheen Mayes, SAMANTHA is Primary Nurse. jd3 10:33 Arm band placed on. jd3 10:33 Inserted saline lock: 22 gauge in right antecubital area, using aseptic technique. jd3 11:52 Chem 7: Redraw after fluids complete Sent. jd3 14:10 No provider procedures requiring assistance completed. jd3 14:59 IV discontinued, intact, bleeding controlled, No redness/swelling at site. Pressure jd3 dressing applied. Administered Medications: 10:33 Drug: NS 0.9% 500 ml Route: IV; Rate: bolus; Site: right antecubital; jd3 11:52 Follow up: Response: No adverse reaction; IV Status: Completed infusion jd3 Medication: 10:33 VIS not applicable for this client. jd3 Outcome: 14:18 Discharge ordered by . kdr 14:59 Discharged to home via wheelchair, with family. jd3 14:59 Condition: stable 14:59 Discharge instructions given to patient, family, Instructed on discharge instructions, follow up and referral plans. medication usage, Demonstrated understanding of instructions, follow-up care, medications, Prescriptions given X 1. 14:59 Patient left the ED. jd3 Signatures: Dispatcher [employer] EDMS Peter Guerrero MD MD kdr Davies, Jonathon, RN RN jd3 Monique Jenkins Kenrick Bello RN RN ke1 Corrections: (The following items were deleted from the chart) 06:40 06:31 Respiratory: Respiratory effort is even, unlabored, ke1 ke1
--- NOTE | 2022-02-27 14:19 | EDPHYS ---
Physician Documentation [facility] Name: Allison Vickers Age: 86 yrs Sex: Female : 1935 Arrival Date: 02/27/2022 Time: 06:22 Bed 13 Private MD: ED Physician Peter Guerrero HPI: 02/27 15:39 This 86 yrs old Female presents to ER via EMS with complaints of right leg pain. kdr 15:39 Patient states that when she got up to go to the bathroom this morning she noticed some kdr red spots on her feet. She also noted a large swollen area on her medial calf. On her foot, she has had chronic erythema and possible fungal infection. Fungal infection has been going on for more than a month. She denies any injury or other illness. She was recently hospitalized for pneumonia. Onset: The symptoms/episode began/occurred suddenly, this morning. Severity of symptoms: At their worst the symptoms were mild in the emergency department the symptoms are unchanged. The patient has not recently seen a physician. Historical: - Allergies: 06:30 Clindamycin; ke1 06:30 Codeine; ke1 - PMHx: 06:30 ADD/ADHD; Arthritis; carpal tunnel syndrome; CHF; chronic bronchitis; Chronic pain; ke1 COPD; diverticulosis; hiatal hernia; Hypertension; IRON DEFICIENCY ANEMIA; - PSHx: 06:30 Appendectomy; Ligation of fallopian tube; back; ke1 - Immunization history:: Client reports receiving the 2nd dose of the Covid vaccine. - Social history:: Smoking status: Patient reports the use of cigarette tobacco products, Patient/guardian denies using tobacco, the patient reports quitting approximately 3 years ago. ROS: 15:39 Constitutional: Negative for fever, chills, and weight loss, Eyes: Negative for injury, kdr pain, redness, and discharge, ENT: Negative for injury, pain, and discharge, Neck: Negative for injury, pain, and swelling, Cardiovascular: Negative for chest pain, palpitations, and edema, Respiratory: Negative for shortness of breath, cough, wheezing, and pleuritic chest pain, Abdomen/GI: Negative for abdominal pain, nausea, vomiting, diarrhea, and constipation, Back: Negative for injury and pain, : Negative for injury, bleeding, discharge, and swelling, Neuro: Negative for headache, weakness, numbness, tingling, and seizure activity. Psych: Negative for depression, anxiety, suicide ideation, homicidal ideation, and hallucinations, Allergy/Immunology: Negative for hives, rash, and allergies, Endocrine: Negative for neck swelling, polydipsia, polyuria, polyphagia, and marked weight changes, Hematologic/Lymphatic: Negative for swollen nodes, abnormal bleeding, and unusual bruising. 15:39 MS/extremity: Positive for swelling, tenderness, of the medial aspect of right calf. 15:39 Skin: Positive for erythema, of the medial aspect of right heel and instep of right foot. Exam: 15:39 Constitutional: This is a well developed, well nourished patient who is awake, alert, kdr and in no acute distress. Head/Face: Normocephalic, atraumatic. Eyes: Pupils equal round and reactive to light, extra-ocular motions intact. Lids and lashes normal. Conjunctiva and sclera are non-icteric and not injected. Cornea within normal limits. Periorbital areas with no swelling, redness, or edema. Neck: Trachea midline, no thyromegaly or masses palpated, and no cervical lymphadenopathy. Supple, full range of motion without nuchal rigidity, or vertebral point tenderness. No Meningismus. Chest/axilla: Normal chest wall appearance and motion. Nontender with no deformity. No lesions are appreciated. Cardiovascular: Regular rate and rhythm with a normal S1 and S2. No gallops, murmurs, or rubs. Normal PMI, no JVD. No pulse deficits. Respiratory: Lungs have equal breath sounds bilaterally, clear to auscultation and percussion. No rales, rhonchi or wheezes noted. No increased work of breathing, no retractions or nasal flaring. Abdomen/GI: Soft, non-tender, with normal bowel sounds. No distension or tympany. No guarding or rebound. No evidence of tenderness throughout. Back: No spinal tenderness. No costovertebral tenderness. Full range of motion. Neuro: Awake and alert, GCS 15, oriented to person, place, time, and situation. Cranial nerves II-XII grossly intact. Motor strength 5/5 in all extremities. Sensory grossly intact. Cerebellar exam normal. Normal gait. Psych: Awake, alert, with orientation to person, place and time. Behavior, mood, and affect are within normal limits. 15:39 Skin: cellulitis, that is minimal, that is mild, confluent, on the medial aspect of right heel and instep of right foot. Vital Signs: 06:22 BP 123 / 62; Pulse 64; Resp 18; Temp 97.8; Pulse Ox 99% on R/A; Weight 45.36 kg; Height ke1 5 ft. 4 in. (162.56 cm); Pain 0/10; 14:10 BP 112 / 76; Pulse 16; Resp 19 S; Pulse Ox 99% on 3 lpm NC; jd3 06:22 Body Mass Index 17.16 (45.36 kg, 162.56 cm) ke1 MDM: 14:18 Patient medically screened. kdr 15:39 Data reviewed: vital signs, nurses notes, lab test result(s), radiologic studies. kdr Counseling: I had a detailed discussion with the patient and/or guardian regarding: the historical points, exam findings, and any diagnostic results supporting the discharge/admit diagnosis, lab results, radiology results, the need for outpatient follow up. 02/27 07:40 Order name: CBC with Diff; Complete Time: 10:11 kdr 02/27 07:40 Order name: Chem 7; Complete Time: 09:31 kdr 02/27 07:40 Order name: US Extremity Venous Unilateral Ltd; Complete Time: 09: kdr 02/27 10:04 Order name: CBC Smear Scan; Complete Time: 10:11 EDMS 02/27 10:23 Order name: Chem 7: Redraw after fluids complete; Complete Time: 13:37 kdr Administered Medications: 10:33 Drug: NS 0.9% 500 ml Route: IV; Rate: bolus; Site: right antecubital; jd3 11:52 Follow up: Response: No adverse reaction; IV Status: Completed infusion jd3 Disposition Summary: 02/27/22 14:18 Discharge Ordered Location: Home kdr Problem: new kdr Symptoms: have improved kdr Condition: Stable kdr Diagnosis - Right calf pain and swelling - improved kdr - Cellulitis of right lower limb - foot kdr Followup: kdr - With: Private Physician - When: 2 - 3 days - Reason: If symptoms return, Further diagnostic work-up, Recheck today's complaints, Continuance of care, Re-evaluation by your physician Discharge Instructions: - Discharge Summary Sheet kdr - Leg Cramps kdr - Musculoskeletal Pain kdr - Cellulitis, Adult, [id number]-[id number] kdr Forms: - Medication Reconciliation Form kdr - Thank You Letter kdr Prescriptions: - nystatin-triamcinolone 100,000-0.1 unit/g-% Topical cream - apply 1 application by TOPICAL route 2 times per day As needed; 30 gram; kdr Refills: 0, Product Selection Permitted Signatures: Dispatcher [employer] Peter Miller MD MD kdr Davies, Jonathon RN RN jd3 Kenrick Ramirez RN RN ke1
[2022-02-27 15:14] VITALS: TEMP 97.8; O2SAT 99
[2022-02-27 15:16] VITALS: BP 112/76
== END 2022-02-27 14:59 | disposition home or self-care (01) ==
LOC: ER 06:17
DX: L03.115 Cellulitis of right lower limb (principal); I10 Essential (primary) hypertension; Z88.3 Allergy status to other anti-infective agents; Z88.5 Allergy status to narcotic agent
CPT/HCPCS: 85025; 80048 ×2; 36415; 93971; 96360; 99284; J7040

== ENCOUNTER 2022-04-14 11:28 | Inpatient (IN) | payer OTHER ==
[2022-04-14] MEDS: carvediloL 12.5 MG TAB PO SCH ×2 (08:00→17:00)
[2022-04-14] MEDS: GABAPENTIN 300 MG CAP PO SCH ×3 (09:00→21:00)
[2022-04-14] MEDS ORDERED: NA CHLORIDE 0.9% 1,000 ML ONE (12:36)
--- NOTE | 2022-04-14 14:05 | EDPHYS ---
Physician Documentation [facility] Name: Allison Vicekrs Age: 87 yrs Sex: Female : 1935 Arrival Date: 04/14/2022 Time: 11:30 Bed 4 Private MD: ED Physician Terrance Howe HPI: 04/14 13:55 This 87 yrs old Female presents to ER via EMS with complaints of BLACK STOOLS.raven 13:55 The patient presents to the emergency department vomiting blood, a moderate amount, raven BLACK STOOLS. Onset: The symptoms/episode began/occurred this morning, yesterday. Abdominal pain: none is appreciated. Modifying factors: The symptoms are alleviated by nothing, the symptoms are aggravated by nothing. Associated signs and symptoms: Pertinent positives:. Severity of symptoms: At their worst the symptoms were mild moderate in the emergency department the symptoms are unchanged. The patient has experienced similar episodes in the past, a few times. Historical: - Allergies: 11:41 Clindamycin; em6 11:41 Codeine; em6 - PMHx: 11:41 ADD/ADHD; Arthritis; carpal tunnel syndrome; CHF; chronic bronchitis; Chronic pain; em6 COPD; diverticulosis; hiatal hernia; Hypertension; IRON DEFICIENCY ANEMIA; - PSHx: 11:41 Appendectomy; back; Ligation of fallopian tube; em6 - Immunization history:: Client reports receiving the 2nd dose of the Covid vaccine. - Social history:: Smoking status: unknown. - Family history:: not pertinent. ROS: 13:55 Constitutional: Negative for fever, chills, and weight loss, Eyes: Negative for injury, raven pain, redness, and discharge, ENT: Negative for injury, pain, and discharge, Neck: Negative for injury, pain, and swelling, Cardiovascular: Negative for chest pain, palpitations, and edema, Respiratory: Negative for shortness of breath, cough, wheezing, and pleuritic chest pain, Back: Negative for injury and pain, : Negative for injury, bleeding, discharge, and swelling, MS/Extremity: Negative for injury and deformity, Neuro: Negative for headache, weakness, numbness, tingling, and seizure, Psych: Negative for depression, anxiety, suicide ideation, homicidal ideation, and hallucinations, Allergy/Immunology: Negative for hives, rash, and allergies, Endocrine: Negative for neck swelling, polydipsia, polyuria, polyphagia, and marked weight changes, Hematologic/Lymphatic: Negative for swollen nodes, abnormal bleeding, and unusual bruising. 13:55 Abdomen/GI: Positive for abdominal pain, black/tarry stool. 13:55 Skin: Positive for pallor. Exam: 13:55 Constitutional: This is a well developed, well nourished patient who is awake, alert, raven and in no acute distress. Head/Face: Normocephalic, atraumatic. Eyes: Pupils equal round and reactive to light, extra-ocular motions intact. Lids and lashes normal. Conjunctiva and sclera are non-icteric and not injected. Cornea within normal limits. Periorbital areas with no swelling, redness, or edema. ENT: Nares patent. No nasal discharge, no septal abnormalities noted. Tympanic membranes are normal and external auditory canals are clear. Oropharynx with no redness, swelling, or masses, exudates, or evidence of obstruction, uvula midline. Mucous membranes moist. Neck: Trachea midline, no thyromegaly or masses palpated, and no cervical lymphadenopathy. Supple, full range of motion without nuchal rigidity, or vertebral point tenderness. No Meningismus. Chest/axilla: Normal chest wall appearance and motion. Nontender with no deformity. No lesions are appreciated. Cardiovascular: Regular rate and rhythm with a normal S1 and S2. No gallops, murmurs, or rubs. Normal PMI, no JVD. No pulse deficits. Respiratory: Lungs have equal breath sounds bilaterally, clear to auscultation and percussion. No rales, rhonchi or wheezes noted. No increased work of breathing, no retractions or nasal flaring. Back: No spinal tenderness. No costovertebral tenderness. Full range of motion. Female : Normal external genitalia. MS/ Extremity: Pulses equal, no cyanosis. Neurovascular intact. Full, normal range of motion. Neuro: Awake and alert, GCS 15, oriented to person, place, time, and situation. Cranial nerves II-XII grossly intact. Motor strength 5/5 in all extremities. Sensory grossly intact. Cerebellar exam normal. Normal gait. Psych: Awake, alert, with orientation to person, place and time. Behavior, mood, and affect are within normal limits. 13:55 Abdomen/GI: Inspection: abdomen appears normal, Bowel sounds: normal, Palpation: soft, nontender, Rectal exam: Stool: guaiac positive, black, hemorrhoid(s), are not appreciated, mass, is not appreciated, swelling, is not appreciated, tenderness, is not appreciated, Liver: no appreciated palpable abnormalities, Hernia: not appreciated. 14:05 ECG was reviewed by the Attending Physician. [facility] Vital Signs: 11:32 BP 140 / 51; Pulse 65; Resp 22; Temp 98.5(O); Pulse Ox 100% on 3 lpm NC; Weight 44.54 em6 kg; Height 5 ft. 4 in. (162.56 cm); Pain 2/10; 12:40 BP 115 / 63; Pulse 66; Resp 21; Pulse Ox 100% on 3 lpm NC; jd3 14:04 BP 123 / 56; Pulse 69; Resp 18; Pulse Ox 100% on 3 lpm NC; jd3 15:45 BP 107 / 61; Pulse 85; Resp 18; Pulse Ox 100% on 3 lpm NC; jd3 17:37 BP 118 / 57; Pulse 74; Resp 20; Pulse Ox 100% on 3 lpm NC; jd3 11:32 Body Mass Index 16.86 (44.54 kg, 162.56 cm) em6 Procedures: 14:01 Peripheral line: by aseptic technique a peripheral line was placed in the right [facility] external jugular vein. MDM: 11:35 Patient medically screened. [facility] 13:55 Differential diagnosis: gastritis, hemorrhagic shock, varices. Data reviewed: vital [facility] signs, nurses notes, EMS record, lab test result(s), EKG, radiologic studies, plain films. Data interpreted: manager monitoring: rate is 66 beats/min, rhythm is regular, Pulse oximetry: on room air is 100 %. Test interpretation: by ED physician or midlevel provider: ECG, plain radiologic studies. Counseling: I had a detailed discussion with the patient and/or guardian regarding: the historical points, exam findings, and any diagnostic results supporting the discharge/admit diagnosis, lab results, radiology results, the need for further work-up and treatment in the hospital. 04/14 11:43 Order name: SARS-COV-2 RT PCR (Document "Date of Onset" if Symptomatic); Complete Time: em1 14:25 04/14 11:43 Order name: TS em1 04/14 11:50 Order name: Basic Metabolic Panel; Complete Time: 14:25 1 04/14 11:50 Order name: CBC with Diff; Complete Time: 14:25 [facility] 04/14 11:50 Order name: PT-INR; Complete Time: 14:25 [facility] 04/14 11:50 Order name: Troponin HS; Complete Time: 14:25 [facility] 04/14 14:04 Order name: Bb Add On [facility] 04/14 15:02 Order name: Packed RBC Leukored EDMA 04/14 16:39 Order name: Urine Dipstick-Ancillary EDMA 04/14 18:16 Order name: Hematocrit EDMA 04/14 18:16 Order name: Hemoglobin EDMS 04/14 18:16 Order name: Basic Metabolic Panel [facility]MA 04/14 18:16 Order name: Basic Metabolic Panel [facility] 04/14 18:16 Order name: CBC with Automated Diff EDMA 04/14 18:16 Order name: CBC with Automated Diff EDMS 04/14 18:16 Order name: Protime (+INR) EDMA 04/14 18:16 Order name: Protime (+INR) EDMA 04/14 18:16 Order name: PTT, Activated Partial Thromb EDMA 04/14 11:37 Order name: EKG; Complete Time: 11:38 [facility] 04/14 11:37 Order name: Cardiac monitoring; Complete Time: 11:47 [facility] 04/14 11:37 Order name: EKG - Nurse/Tech; Complete Time: 12:27 [facility] 04/14 11:37 Order name: IV Saline Lock; Complete Time: 12:27 [facility] 04/14 11:37 Order name: Labs collected and sent; Complete Time: 17:27 [facility] 04/14 11:37 Order name: O2 Per Protocol; Complete Time: 11:46 [facility] 04/14 13:55 Order name: Chest Single View XRAY [facility] 04/14 18:16 Order name: CONS Physician Consult [facility] 04/14 18:16 Order name: NPO [facility] 04/14 18:16 Order name: EKG Electrocardiogram [facility] 04/14 18:16 Order name: EKG Electrocardiogram [facility] 04/14 18:16 Order name: EKG Electrocardiogram [facility] 04/14 18:16 Order name: EKG Electrocardiogram [facility] 04/14 18:16 Order name: EKG Electrocardiogram [facility] 04/14 18:16 Order name: EKG Electrocardiogram [facility] 04/14 18:16 Order name: EKG Electrocardiogram [facility] 04/14 18:16 Order name: EKG Electrocardiogram [facility] 04/14 18:16 Order name: EKG Electrocardiogram [facility] 04/14 18:16 Order name: EKG Electrocardiogram [facility] 04/14 18:16 Order name: EKG Electrocardiogram [facility] 04/14 18:16 Order name: PTT, Activated Partial Thromb EDMA 04/14 18:16 Order name: Folic Acid, (Folate) EDMA 04/14 18:16 Order name: Iron [facility]MA 04/14 18:16 Order name: Retic Count [facility]MA 04/14 18:16 Order name: Vitamin B12 Level [facility]MA 04/14 11:37 Order name: O2 Sat Monitoring; Complete Time: 11:46 raven 04/14 11:37 Order name: Urine Dipstick-Ancillary (obtain specimen); Complete Time: 17:27 [facility] EC:05 Rate is 75 beats/min. QRS [place] is Normal. IA interval is normal. QRS interval is raven normal. QT interval is normal. No Q waves. T waves are Normal. No ST changes noted. Clinical impression: NSR w/ Non-specific ST/T Changes and No evidence of ischemia. Interpreted by me. Reviewed by me. Administered Medications: 12:40 Drug: NS 0.9% 1000 ml Route: IV; Rate: 125 ml/hr; Site: left antecubital; jd3 18:56 Follow up: Response: No adverse reaction; IV Status: Infusion continued upon admission jd3 14:18 Drug: ProTONIX (pantoprazole) 80 mg Route: IVP; Site: right jugular; jd3 15:00 Follow up: Response: No adverse reaction jd3 15:00 Drug: ProTONIX (pantoprazole) 8 mg/hr Route: IV; Rate: 25 ml/hr; Site: right jugular; jd3 16:00 Follow up: Response: No adverse reaction; IV Status: Infusion continued upon admission jd3 15:20 Drug: Zofran (Ondansetron) 4 mg Route: IVP; Site: right jugular; em6 16:20 Follow up: Response: No adverse reaction jd3 15:20 Drug: morphine 2 mg Route: IVP; Infused Over: 4 mins; Site: right jugular; em6 18:59 Follow up: Response: No adverse reaction; RASS: Alert and Calm (0) jd3 Disposition Summary: 04/14/22 14:05 Hospitalization Ordered Hospitalization Status: Inpatient Admission raven Provider: Daniela Rivas cha Location: Telemetry/MedSurg (Inpatient) raven Condition: Stable raven Problem: new raven Symptoms: have improved raven Bed/Room Type: Standard raven Room Assignment: 229(04/14/22 18:51) dw Diagnosis - GI Bleed/ Gastrointestinal hemorrhage, unspecified - UPPER raven - Weakness raven - Anemia, unspecified raven Forms: - Medication Reconciliation Form raven - SBAR form raven Signatures: Dispatcher [employer] EDMS Nahomy Younger RN RN dw Anderson, Corey, MD MD cha Davies, Jonathon, RN RN jd3 Julia Ley RN RN em6 Corrections: (The following items were deleted from the chart) 11:40 11:38 ACETAMINOPHEN+C.LAB.BRZ ordered. EDMS EDMS 11:41 11:37 Suicide Screening ([place]) ordered. [facility] em1 11:42 11:38 BASIC METABOLIC PANEL+C.LAB.BRZ ordered. EDMS EDMS 11:42 11:38 HEPATIC FUNCTION+C.LAB.BRZ ordered. EDMS EDMS 11:42 11:38 MAGNESIUM+C.LAB.BRZ ordered. EDMS EDMS 11:42 11:38 PROBNP+C.LAB.BRZ ordered. EDMS EDMS 11:42 11:38 Troponin High Sensitivity+C.LAB.BRZ ordered. EDMS EDMS 11:42 11:38 ETHANOL+C.LAB.BRZ ordered. EDMS EDMS 11:43 11:37 Seizure Precautions ordered. [facility] em1 11:43 11:38 CBC+H.LAB.BRZ ordered. EDMS EDMS 11:43 11:38 PROTIME (+INR)+COAG.LAB.BRZ ordered. EDMS EDMS 11:43 11:38 PTT, ACTIVATED+COAG.LAB.BRZ ordered. EDMS EDMS 11:43 11:38 SALICYLATE+C.LAB.BRZ ordered. EDMS EDMS 11:43 11:38 URINE DRUG SCREEN+UC.LAB.BRZ ordered. EDMS EDMS 11:43 11:38 Chest Single View+RAD.RAD.BRZ ordered. EDMS EDMS 11:56 11:41 Head Brain Wo Cont+CT.RAD.BRZ ordered. EDMS EDMS 18:51 14:05 raven dw
--- NOTE | 2022-04-14 14:05 | ER ---
Nurse's Notes [facility] Name: Allison Vickers Age: 87 yrs Sex: Female : 1935 Arrival Date: 04/14/2022 Time: 11:30 Bed 4 Private MD: Diagnosis: GI Bleed/ Gastrointestinal hemorrhage, unspecified-UPPER;Weakness;Anemia, unspecified Presentation: 04/14 11:32 Chief complaint: EMS states: "patient states having blood in the stool and also reports em6 having a cold. also states patient was admitted to the hospital due to her COPD and was told by the nurse to come back to hospital if the patient notices any bleeding.". Coronavirus screen: At this time, the client does not indicate any symptoms associated with coronavirus-19. Ebola Screen: No symptoms or risks identified at this time. Initial Sepsis Screen: Does the patient meet any 2 criteria? No. Patient's initial sepsis screen is negative. Does the patient have a suspected source of infection? No. Patient's initial sepsis screen is negative. Risk Assessment: Do you want to hurt yourself or someone else? Patient reports no desire to harm self or others. Onset of symptoms was April 14, 2022. 11:32 Method Of Arrival: EMS: [facility] em6 11:32 Acuity: JESUS 3 em6 Historical: - Allergies: 11:41 Clindamycin; em6 11:41 Codeine; em6 - PMHx: 11:41 ADD/ADHD; Arthritis; carpal tunnel syndrome; CHF; chronic bronchitis; Chronic pain; em6 COPD; diverticulosis; hiatal hernia; Hypertension; IRON DEFICIENCY ANEMIA; - PSHx: 11:41 Appendectomy; back; Ligation of fallopian tube; em6 - Immunization history:: Client reports receiving the 2nd dose of the Covid vaccine. - Social history:: Smoking status: unknown. - Family history:: not pertinent. Screenin:42 Abuse screen: Denies threats or abuse. Nutritional screening: No deficits noted. jd3 Tuberculosis screening: No symptoms or risk factors identified. Fall Risk Ambulatory Aid- None/Bed Rest/Nurse Assist (0 pts). Gait- Normal/Bed Rest/Wheelchair (0 pts) Mental Status- Oriented to own ability (0 pts). Total Francisco Fall Scale indicates No Risk (0-24 pts). Assessment: 11:39 General: Appears in no apparent distress. comfortable, Behavior is calm, cooperative, jd3 appropriate for age. Pain: Denies pain. Neuro: Pruitt Agitation-Sedation Scale (RASS): 0 - Alert and Calm Level of Consciousness is awake, alert, obeys commands, Oriented to person, place, time, situation. Cardiovascular: Capillary refill < 3 seconds Patient's skin is warm and dry. Respiratory: Airway is patent Respiratory effort is even, unlabored, Respiratory pattern is regular, symmetrical, Denies cough, shortness of breath. GI: Abd is soft and non tender X 4 quads. Reports bloody stool, Patient currently denies abdominal pain. : No signs and/or symptoms were reported regarding the genitourinary system. EENT: No signs and/or symptoms were reported regarding the EENT system. Derm: Skin is intact, Skin is dry, Skin is pale, Skin temperature is warm. Musculoskeletal: No signs and/or symptoms reported regarding the musculoskeletal system. 12:40 Reassessment: Patient appears in no apparent distress at this time. No changes from jd3 previously documented assessment. Patient and/or family updated on plan of care and expected duration. Pain level reassessed. Patient is alert, oriented x 3, equal unlabored respirations, skin warm/dry/pink. 14:04 Reassessment: Patient appears in no apparent distress at this time. No changes from jd3 previously documented assessment. Patient and/or family updated on plan of care and expected duration. Pain level reassessed. Patient is alert, oriented x 3, equal unlabored respirations, skin warm/dry/pink. 15:45 Reassessment: Patient appears in no apparent distress at this time. Patient and/or jd3 family updated on plan of care and expected duration. Pain level reassessed. Patient is alert, oriented x 3, equal unlabored respirations, skin warm/dry/pink. 16:45 Reassessment: Patient appears in no apparent distress at this time. No changes from jd3 previously documented assessment. Patient and/or family updated on plan of care and expected duration. Pain level reassessed. Patient is alert, oriented x 3, equal unlabored respirations, skin warm/dry/pink. 17:36 Reassessment: Patient appears in no apparent distress at this time. Patient and/or jd3 family updated on plan of care and expected duration. Pain level reassessed. Patient is alert, oriented x 3, equal unlabored respirations, skin warm/dry/pink. awaiting admission. Vital Signs: 11:32 BP 140 / 51; Pulse 65; Resp 22; Temp 98.5(O); Pulse Ox 100% on 3 lpm NC; Weight 44.54 em6 kg; Height 5 ft. 4 in. (162.56 cm); Pain 2/10; 12:40 BP 115 / 63; Pulse 66; Resp 21; Pulse Ox 100% on 3 lpm NC; jd3 14:04 BP 123 / 56; Pulse 69; Resp 18; Pulse Ox 100% on 3 lpm NC; jd3 15:45 BP 107 / 61; Pulse 85; Resp 18; Pulse Ox 100% on 3 lpm NC; jd3 17:37 BP 118 / 57; Pulse 74; Resp 20; Pulse Ox 100% on 3 lpm NC; jd3 11:32 Body Mass Index 16.86 (44.54 kg, 162.56 cm) em6 ED Course: 11:30 Patient arrived in ED. em1 11:32 Shaheen Mayes, RN is Primary Nurse. jd3 11:35 Terrance Howe MD is Attending Physician. [facility] 11:40 Triage completed. em6 11:42 Arm band placed on. em6 11:43 Patient has correct armband on for positive identification. Bed in low position. Call jd3 light in reach. Side rails up X2. Adult w/ patient. Client placed on continuous cardiac and pulse oximetry monitoring. NIBP monitoring applied. environmental monitoring technician on. Pulse ox on. NIBP on. 12:27 Inserted saline lock: 22 gauge in left antecubital area, using aseptic technique. jd3 14:00 Inserted saline lock: 18 gauge in right EJ, using aseptic technique. Blood collected. jd3 placed by Dr. Howe. 14:01 Daniela Rivas MD is Hospitalizing Provider. [facility] 14:05 Served as a watch repairer during rectal exam. jd3 14:18 Chest Single View XRAY In Process Unspecified. EDMS 19:43 Patient admitted, IV remains in place. as6 Administered Medications: 12:40 Drug: NS 0.9% 1000 ml Route: IV; Rate: 125 ml/hr; Site: left antecubital; jd3 18:56 Follow up: Response: No adverse reaction; IV Status: Infusion continued upon admission jd3 14:18 Drug: ProTONIX (pantoprazole) 80 mg Route: IVP; Site: right jugular; jd3 15:00 Follow up: Response: No adverse reaction jd3 15:00 Drug: ProTONIX (pantoprazole) 8 mg/hr Route: IV; Rate: 25 ml/hr; Site: right jugular; jd3 16:00 Follow up: Response: No adverse reaction; IV Status: Infusion continued upon admission jd3 15:20 Drug: Zofran (Ondansetron) 4 mg Route: IVP; Site: right jugular; em6 16:20 Follow up: Response: No adverse reaction jd3 15:20 Drug: morphine 2 mg Route: IVP; Infused Over: 4 mins; Site: right jugular; em6 18:59 Follow up: Response: No adverse reaction; RASS: Alert and Calm (0) jd3 Medication: 11:42 VIS not applicable for this client. jd3 Outcome: 14:05 Decision to Hospitalize by Provider. raven 19:43 Admitted to Med/surg accompanied by tech, family with patient, via stretcher, room 229, as6 with oxygen, with chart. 19:43 Condition: stable 19:43 Instructed on the need for admit. 19:51 Patient left the ED. as6 Signatures: Dispatcher [employer] Terrance Lo MD MD cha Martinez, Eric em1 Shaheen Mayes RN RN jd3 Slawson, Ashby, RN RN as6 Julia Ley RN RN em6
[2022-04-14 14:14] LABS: Absolute Lymphocytes (CBC) 0.9 K/uL (0.7-4.9); Hematocrit 26.5 % (36.0-45.0); Lymphocytes % 10.7 % (15.3-44.8); MCV 90.6 fL (80-100); MPV 7.2 fL (7.6-11.3); RBC Red Blood Cell Count 2.92 M/uL (3.86-4.86)
[2022-04-14] MEDS ORDERED: PANTOPRAZOLE 40 MG INJ ONE (14:18)
[2022-04-14 14:21] LABS: Potassium 4.5 mmol/L (3.5-5.1)
[2022-04-14 14:22] LABS: Protime INR 0.99
--- NOTE | 2022-04-14 14:42 | RAD REPORT ---
EXAM DESCRIPTION: RAD - Chest Single View - 04/14/2022 2:16 pm CLINICAL HISTORY: COUGH, COPD, history of hypertension and CHF COMPARISON: CT chest 04/07/2022, portable chest 04/07/2022 TECHNIQUE: AP portable chest image was obtained 04/14/2022 2:16 pm . FINDINGS: Extensive interstitial fibrotic lung pattern is present not clearly different from prior i maging. Biapical scarring changes are present. Aeration of the left lung base is improved from prior imaging. Left base pneumonia is fully or mostly resolved. No progressive lung parenchymal process. Heart and vasculature are normal. No measurable pleural effusion and no pneumothorax. No acute bony abnormality seen. No acute aortic findings suspected. IMPRESSION: Prominent COPD pattern with no acute cardiopulmonary finding. Left base pneumonia findings seen April 07 are resolved or mostly resolved.
[2022-04-14] MEDS: PANTOPRAZOLE INJ 80 MG in NA CHLORIDE 0.9% 250 ML IV SCH ×2 (15:00→23:09)
[2022-04-14] MEDS ORDERED: MORPHINE 2 MG/ML SYR ONE (15:15)
[2022-04-14] MEDS ORDERED: ONDANSETRON 4 MG/2 ML VIAL ONE (15:15)
[2022-04-14 16:39] LABS: Urine Blood Negative (Negative); Urine Glucose Negative (Negative); Urine Protein Negative (Negative); Urine pH 8.5 (5.0-7.0)
[2022-04-14] MEDS ORDERED: ONDANSETRON 4 MG/2 ML VIAL IV PRN (18:12)
[2022-04-14] MEDS ORDERED: ACETAMINOPHEN 500 MG TAB PO PRN (18:12)
[2022-04-14 18:45] VITALS: BMI 16.8
[2022-04-14] MEDS ORDERED: NA CHLORIDE 0.9% 250 ML IV SCH (19:00)
[2022-04-14] MEDS ORDERED: NA CHLORIDE 0.9% 1,000 ML IV SCH (19:00)
[2022-04-14] MEDS: MORPHINE 2 MG/ML SYR IV PRN (22:09)
[2022-04-14] MEDS ORDERED: HYDRALAZINE HCL 20 MG/ML VIAL IV PRN (22:46)
--- NOTE | 2022-04-15 | P.HP ---
Certification for Inpatient Patient admitted to: Inpatient With expected LOS: >2 Midnights Patient will require the following post-hospital care: None Practitioner: I am a practitioner with admitting privileges, knowledge of patient current condition, hospital course, and medical plan of care. Services: Services provided to patient in accordance with Admission requirements found in Title 42 Section 412.3 of the Code of Federal Regulations Patient History Date of Service: 04/14/22 Reason for admission: upper GI bleeding/ melanotic stool, 48 hours History of Present Illness: patient is a an 87-year-old female who came to the hospital because she was feeling weak and having melanotic stools. She was recently in the hospital for COPD exacerbation and she was sent home on steroids and neb treatments. After getting home she noticed that her stools were dark. They continued to be dark and she had melanotic stools for 48 hours. Patient was admitted for further evaluation. Hemoglobin is 8.4. Patient has a history of microcytic anemia. A consult to Gastroenterology. Will repeat H&H as well. Patient will be admitted for inpatient hospitalization. Patient may need endoscopy. She does not want any procedures done unless she is absolutely necessary to have them at this time. Allergies clindamycin Allergy (Verified 04/28/20 19:09) unknown reaction codeine Allergy (Verified 04/28/20 19:09) unknown reaction Home Medications: Carvedilol [Coreg] 12.5 mg PO BIDWM 05/15/20 Acetaminophen [Tylenol] 2 cap PO Q4HP PRN 02/16/22 Albuterol Sulfate [Proair Hfa] 2 puff PO Q6HR 02/16/22 Cholecalciferol (Vitamin D3) [Vitamin D3] 1 tab PO EVERY 7TH DAY 02/16/22 Cyanocobalamin (Vitamin B-12) [Vitamin B-12] 1 tab PO DAILY 02/16/22 Fluticasone/Umeclidin/Vilanter [Trelegy Ellipta 100-62.5-25] 1 puff PO DAILY 02/16/22 Folic Acid 1 tab PO DAILY 02/16/22 Gabapentin 1 cap PO TID 02/16/22 Hydrocodone Bit/Acetaminophen [Hydrocodon-Acetaminophn 10-325] 1 tab PO Q6HP PRN 02/16/22 Loratadine [Claritin*] 1 tab PO DAILY 02/16/22 Melatonin 1 tab PO BEDTIME 02/16/22 Omeprazole 1 tab PO DAILY 02/16/22 Pantoprazole [Protonix Tab*] 1 tab PO DAILY 02/16/22 Potassium Chloride [Klor-Con 10] 1 tab PO DAILY 02/16/22 Theophylline Anhydrous [Nate-24] 1 cap PO DAILY 02/16/22 Albuterol Neb [Proventil 0.083% Neb Soln] 2.5 mg NEB [id number] #60 amp 02/18/22 Amlodipine [Norvasc*] 5 mg PO DAILY #30 tab 02/18/22 Ipratropium Neb [Atrovent*] 0.5 mg NEB [id number] #60 amp 02/18/22 Losartan Potassium [Cozaar*] 50 mg PO DAILY #30 tablet 02/18/22 acetaZOLAMIDE [Diamox] 125 mg PO DAILY #30 tab 04/09/22 levoFLOXacin [Levaquin] 500 mg PO DAILY #10 tab 04/09/22 - Past Medical/Surgical History Has patient received pneumonia vaccine in the past: Yes Diabetic: No -: Hypertension -: Chronic vertebral fractures -: Former smoker -: GERD with hiatal hernia -: Anemia of chronic disease -: Chronic pain -: Diastolic CHF with pulmonary hypertension -: Carpal tunnel disease -: COPD, end-stage -: Back surgery -: Appendectomy -: carpal tunnel sx -: tubal ligation Psychosocial/ Personal History: Patient is and lives with - Family History Father Medical History: Hypertension, Stroke Mother Medical History: Hypertension, Stroke Brother Medical History: Lung disease Sister Medical History: Heart disease - Social History Smoking Status: Unknown if ever smoked Alcohol use: No CD- Drugs: No Caffeine use: Yes Place of Residence: Home Review of Systems 10-point ROS is otherwise unremarkable Physical Examination - Vital Signs Temperature: 97.8 F Blood Pressure: 175/71 Pulse: 80 Respirations: 18 Pulse Ox (%): 100 - Physical Exam General: Alert, In no apparent distress, Oriented x3 HEENT: Atraumatic, PERRLA, Mucous membr. moist/pink, EOMI, Sclerae nonicteric Neck: Supple, 2+ carotid pulse no bruit, No LAD, Without JVD or thyroid abnormality Respiratory: Clear to auscultation bilaterally, Normal air movement Cardiovascular: Regular rate/rhythm, Normal S1 S2 Gastrointestinal: Normal bowel sounds, Soft and benign, Non-distended, No tenderness Musculoskeletal: No clubbing, No swelling, No tenderness Integumentary: No rashes Neurological: Normal speech, Normal strength at 5/5 x4 extr, Normal tone, Normal affect Lymphatics: No axilla or inguinal lymphadenopathy - Studies Laboratory Data (last 24 hrs) 04/14/22 13:48: PT 10.9, INR 0.99 04/14/22 13:48: WBC 8.6 D, Hgb 8.4 L, Hct 26.5 L, Plt Count 332 04/14/22 13:48: Sodium 140, Potassium 4.5, BUN 21 H, Creatinine 0.75, Glucose 130 H 04/14/22 11:37: PT Cancelled, INR Cancelled, APTT Cancelled 04/14/22 11:37: WBC Cancelled, Hgb Cancelled, Hct Cancelled, Plt Count Cancelled 04/14/22 11:37: Sodium Cancelled, Potassium Cancelled, BUN Cancelled, Creatinine Cancelled, Glucose Cancelled, Magnesium Cancelled, Total Bilirubin Cancelled, AST Cancelled, ALT Cancelled, Alkaline Phosphatase Cancelled Assessment & Plan - Problems (Diagnosis) (1) Anemia due to acute blood loss Current Visit: Yes Status: Acute (2) Microcytic anemia Current Visit: No Status: Acute (3) Congestive heart failure Current Visit: No Status: Chronic Qualifiers: (4) History of COPD Current Visit: No Status: Chronic (5) Hypertension Current Visit: No Status: Chronic Qualifiers: (6) UGIB (upper gastrointestinal bleed) Current Visit: Yes Status: Acute - Plan 1. Continue with IV hydration and PPI drip 2. Continue with IV antibiotics 3. Continue with pain control 4. NPO 5. GI consultation 6. Monitor LFTs and lipase along with electrolytes and serial H&H. 7. GI and DVT prophylaxis Discharge Plan: Home - Advance Directives Does patient have a Living Will: Yes Does patient have a Durable POA for Healthcare: Yes
[2022-04-15 01:15] LABS: Absolute Lymphocytes (CBC) 1.8 K/uL (0.7-4.9); Hematocrit 26.5 % (36.0-45.0); Lymphocytes % 21.6 % (15.3-44.8); MCV 89.4 fL (80-100); MPV 7.6 fL (7.6-11.3); RBC Red Blood Cell Count 2.96 M/uL (3.86-4.86)
[2022-04-15 02:21] LABS: Blood Morphology Comment NOT SEEN (NOT SEEN); Platelet Estimate ADEQ
[2022-04-15] MEDS: MORPHINE 2 MG/ML SYR IV PRN ×3 (05:17→16:05)
[2022-04-15 06:23] LABS: Absolute Lymphocytes (CBC) 1.8 K/uL (0.7-4.9); Hematocrit 23.2 % (36.0-45.0); Lymphocytes % 26.9 % (15.3-44.8); MCV 89.2 fL (80-100); MPV 6.8 fL (7.6-11.3)
[2022-04-15 06:25] LABS: RBC Red Blood Cell Count 2.63 M/uL (3.86-4.86)
[2022-04-15 06:27] LABS: Potassium 3.9 mmol/L (3.5-5.1)
[2022-04-15 06:46] LABS: Protime INR 1.03
[2022-04-15 06:53] LABS: Folic Acid, (Folate) > 20.0 ng/mL (3.1-17.5)
[2022-04-15] MEDS ORDERED: PANTOPRAZOLE 40MG TABLET PO SCH (07:30)
--- NOTE | 2022-04-15 08:06 | P.PN ---
Subjective Date of Service: 04/15/22 Subjective: No new changes, No C/O voiced, Improving Her biggest complaint is that she is just been feeling weak lately. She has iron deficiency anemia. Her hemoglobin was 7.6 this morning. We will repeat at later today and may give her 1 to 2 units of packed red blood cells. GI consultation pending. Review of Systems 10-point ROS is otherwise unremarkable Physical Examination - Vital Signs Temperature: 97.8 F Blood Pressure: 175/71 Pulse: 80 Respirations: 18 Pulse Ox (%): 100 - Physical Exam General: Alert, In no apparent distress, Cachectic HEENT: Atraumatic, PERRLA, EOMI Neck: Supple, JVD not distended Respiratory: Clear to auscultation bilaterally, Normal air movement Cardiovascular: Regular rate/rhythm, Normal S1 S2 Gastrointestinal: Normal bowel sounds, No tenderness Musculoskeletal: No tenderness Integumentary: No rashes Neurological: Normal speech, Normal tone, Normal affect Lymphatics: No axilla or inguinal lymphadenopathy - Studies Laboratory Data (last 24 hrs) 04/14/22 13:48: PT 10.9, INR 0.99 04/14/22 13:48: WBC 8.6 D, Hgb 8.4 L, Hct 26.5 L, Plt Count 332 04/14/22 13:48: Sodium 140, Potassium 4.5, BUN 21 H, Creatinine 0.75, Glucose 130 H 04/14/22 11:37: PT Cancelled, INR Cancelled, APTT Cancelled 04/14/22 11:37: WBC Cancelled, Hgb Cancelled, Hct Cancelled, Plt Count Cancelled 04/14/22 11:37: Sodium Cancelled, Potassium Cancelled, BUN Cancelled, Creatinine Cancelled, Glucose Cancelled, Magnesium Cancelled, Total Bilirubin Cancelled, AST Cancelled, ALT Cancelled, Alkaline Phosphatase Cancelled Medications List Reviewed: Yes Assessment & Plan - Problems (Diagnosis) (1) Anemia due to acute blood loss Current Visit: Yes Status: Acute (2) Microcytic anemia Current Visit: No Status: Acute (3) Congestive heart failure Current Visit: No Status: Chronic Qualifiers: (4) History of COPD Current Visit: No Status: Chronic (5) Hypertension Current Visit: No Status: Chronic Qualifiers: (6) UGIB (upper gastrointestinal bleed) Current Visit: Yes Status: Acute (7) Generalized weakness Current Visit: Yes Status: Acute - Plan 1. Continue with IV hydration and PPI drip 2. Continue with IV antibiotics 3. Continue with pain control 4. NPO 5. GI consultation 6. Monitor LFTs and lipase along with electrolytes and serial H&H. 7. Physical therapy evaluation 8. GI and DVT prophylaxis - Advance Directives Does patient have a Living Will: Yes Does patient have a Durable POA for Healthcare: Yes
[2022-04-15] MEDS: FOLIC ACID 1 MG TABLET PO SCH (09:28)
[2022-04-15] MEDS: NA CHLORIDE 0.9% 1,000 ML IV SCH (09:28)
[2022-04-15] MEDS: acetaZOLAMIDE 250 MG TAB PO SCH (09:29)
[2022-04-15] MEDS: POTASSIUM CL SA 10 MEQ TAB PO SCH (09:29)
[2022-04-15] MEDS: LOSARTAN POTASSIUM 50 MG TABLET PO SCH (09:29)
[2022-04-15] MEDS: LORATADINE 10 MG TAB PO SCH (09:30)
[2022-04-15] MEDS: GABAPENTIN 300 MG CAP PO SCH ×3 (09:30→21:32)
[2022-04-15] MEDS: AMLODIPINE 5 MG TAB PO SCH (09:30)
[2022-04-15] MEDS: carvediloL 12.5 MG TAB PO SCH ×2 (09:30→16:55)
[2022-04-15] MEDS: SOD FERRIC GLUC COMPLX/SUCROSE 125 MG in NA CHLORIDE 0.9% 100 ML IV SCH (09:36)
[2022-04-15 10:36] LABS: Absolute Lymphocytes (CBC) 1.6 K/uL (0.7-4.9); Hematocrit 23.4 % (36.0-45.0); Lymphocytes % 22.4 % (15.3-44.8); MCV 88.2 fL (80-100); MPV 6.5 fL (7.6-11.3); RBC Red Blood Cell Count 2.65 M/uL (3.86-4.86)
[2022-04-15 10:40] LABS: Anisocytosis 1+; Blood Morphology Comment NOTED (NOT SEEN); Ovalocytes 1+; Platelet Estimate ADEQ; Poikilocytosis SLIGHT
[2022-04-15] MEDS: PANTOPRAZOLE INJ 80 MG in NA CHLORIDE 0.9% 250 ML IV SCH ×2 (11:02→21:52)
[2022-04-15] MEDS ORDERED: ALBUTEROL 2.5 MG/3 ML NEB SOL NEB ONE (12:06)
[2022-04-15] MEDS ORDERED: IPRATROPIUM BROM 0.5MG/2.5ML NEB ONE (12:07)
[2022-04-15] MEDS ORDERED: ALBUTEROL 2.5 MG/3 ML NEB SOL NEB PRN ×2 (12:08→15:00)
[2022-04-15] MEDS ORDERED: IPRATROPIUM BROM 0.5MG/2.5ML NEB PRN (12:08)
--- NOTE | 2022-04-15 13:07 | EKG ---
Test Date: 2022-04-14 Test Time: 12:09:42 Karate Teacher: MAYRA MEASUREMENT RESULTS: Intervals: Rate: 75 ND: QRSD: 66 QT: 348 QTc: 388 [place]: P: ND: QRS: 57 T: 48 INTERPRETIVE STATEMENTS: Unable to interpret this EKG due to significant artifact. Electronically Signed On 04-15-22 13:05:37 CDT by Tavon Hill
[2022-04-15] MEDS ORDERED: METHYLPREDNISOLONE 40 MG INJ IV SCH (16:00)
--- NOTE | 2022-04-15 16:55 | RAD REPORT ---
EXAM DESCRIPTION: RAD - Chest Single View - 04/15/2022 4:44 pm CLINICAL HISTORY: sob HYPOXIA Chest pain. COMPARISON: Chest Single View dated 04/14/2022; Chest Single View dated 04/07/2022; Chest Single View d ated 02/17/2022; Chest Single View dated 02/15/2022 FINDINGS: Portable technique limits examination quality. COPD is seen with mild bilateral interstitial pulmonary edema. Bilateral pleural effusions are also s een, small. The heart is mildly enlarged. No displaced fractures. IMPRESSION: Mild to moderate CHF versus volume overload.
[2022-04-15 17:47] LABS: Arterial Blood Carboxyhemoglob 1.1 % (0-1.5); Blood Gas Oxyhemoglobin 74.2 % (94-97); Blood O2 Saturation 76.3 % (92-98.5)
[2022-04-15] MEDS ORDERED: FUROSEMIDE 20 MG/ 2ML VIAL IV ONE (19:00)
[2022-04-15] MEDS ORDERED: ALBUMIN HUMAN 25% 100 ML IV ONE (19:00)
[2022-04-15] MEDS: ARFORMOTEROL TARTRATE 15 MCG/2 ML VIAL.NEB NEB SCH (19:30)
[2022-04-15] MEDS ORDERED: ARFORMOTEROL TARTRATE 15 MCG/2 ML VIAL.NEB ONE (19:32)
[2022-04-15] MEDS: MELATONIN 3 MG TABLET PO SCH (21:32)
[2022-04-15] MEDS: METHYLPREDNISOLONE 40 MG INJ IV SCH (21:52)
[2022-04-16] MEDS: HYDROCODONE/APAP 10/325 TAB PO PRN
[2022-04-16] MEDS: METHYLPREDNISOLONE 40 MG INJ IV SCH ×3 (03:58→21:00)
[2022-04-16] MEDS: NA CHLORIDE 0.9% 1,000 ML IV SCH (03:58)
[2022-04-16 06:45] LABS: Absolute Lymphocytes (CBC) 0.9 K/uL (0.7-4.9); Hematocrit 26.2 % (36.0-45.0); Lymphocytes % 9.3 % (15.3-44.8); MCV 89.4 fL (80-100); MPV 7.8 fL (7.6-11.3); RBC Red Blood Cell Count 2.93 M/uL (3.86-4.86)
[2022-04-16 07:16] LABS: AST/SGOT 6 U/L (15-37); Albumin 3.2 g/dL (3.4-5.0); Alkaline Phosphatase 38 U/L (45-117); BUN Blood Urea Nitrogen 23 mg/dL (7-18); Bicarbonate 28 mmol/L (21-32); Bilirubin Total 0.4 mg/dL (0.2-1.0); Glomerular Filtration Rate 79 ml/min (=/>90); Glucose Level 112 mg/dL (74-106); Magnesium 2.1 mg/dL (1.8-2.4); NT PRO-BNP 1096 pg/mL (<450); Potassium 4.1 mmol/L (3.5-5.1); Protein, Total 6.3 g/dL (6.4-8.2); Sodium Level 139 mmol/L (136-145); Thyroid Stimulating Hormone 0.617 uIU/mL (0.360-3.740)
[2022-04-16 07:18] LABS: ALT/SGPT < 10 U/L (12-78)
[2022-04-16] MEDS: ARFORMOTEROL TARTRATE 15 MCG/2 ML VIAL.NEB NEB SCH ×2 (08:00→20:30)
[2022-04-16] MEDS: carvediloL 12.5 MG TAB PO SCH ×2 (08:00→17:11)
[2022-04-16 08:20] LABS: Blood Morphology Comment NOT SEEN (NOT SEEN); Platelet Estimate ADEQ
[2022-04-16 08:21] LABS: White Blood Cell Scan OK (OK)
--- NOTE | 2022-04-16 08:59 | P.PN ---
Date of Service: 04/15/22 Rapid response was called because the patient be satting. Chest x-ray with pulmonary edema. Give her some diuretics. Also gave her neb treatments. We will continue Brovana twice a day and will keep duo nebs going. IV Solu-Medrol given. Consulted pulmonary.
[2022-04-16] MEDS: acetaZOLAMIDE 250 MG TAB PO SCH (09:00)
[2022-04-16] MEDS: LOSARTAN POTASSIUM 50 MG TABLET PO SCH (09:00)
[2022-04-16] MEDS: GABAPENTIN 300 MG CAP PO SCH ×3 (09:00→21:00)
[2022-04-16] MEDS: LORATADINE 10 MG TAB PO SCH (09:00)
[2022-04-16] MEDS: FOLIC ACID 1 MG TABLET PO SCH (09:00)
[2022-04-16] MEDS: AMLODIPINE 5 MG TAB PO SCH (09:00)
[2022-04-16] MEDS: POTASSIUM CL SA 10 MEQ TAB PO SCH (09:00)
--- NOTE | 2022-04-16 09:00 | P.PN ---
Date of Service: 04/16/22 Subjective Patient feeling much better. Her strength has improved. Her respiratory status has improved. EGD pending for today. Hemoglobin up to 8.6. GI to assess for EGD today. Review of Systems 10-point ROS is otherwise unremarkable Physical Examination - Vital Signs Reviewed - Physical Exam General: Alert, In no apparent distress, Cachectic Respiratory: Clear to auscultation bilaterally, Normal air movement Cardiovascular: Regular rate/rhythm, Normal S1 S2 Gastrointestinal: Normal bowel sounds, No tenderness Neurological: Normal speech, Normal tone, Normal affect Assessment & Plan - Problems (Diagnosis) (1) Anemia due to acute blood loss Current Visit: Yes Status: Acute (2) Microcytic anemia Current Visit: No Status: Acute (3) Congestive heart failure Current Visit: No Status: Chronic Qualifiers: (4) History of COPD Current Visit: No Status: Chronic (5) Hypertension Current Visit: No Status: Chronic Qualifiers: (6) UGIB (upper gastrointestinal bleed) Current Visit: Yes Status: Acute (7) Generalized weakness Current Visit: Yes Status: Acute - Plan Continue with plan of care as mentioned below: 1. Continue with IV hydration and PPI drip 2. Continue with IV antibiotics 3. Continue with pain control 4. NPO 5. GI consultation appreciated 6. Consulted pulmonary; added Brovana twice a day. Continue with neb treatments and continue with diuretics 7. Physical therapy evaluation 8. GI and DVT prophylaxis - Advance Directives Does patient have a Living Will: Yes Does patient have a Durable POA for Healthcare: Yes
[2022-04-16] MEDS: PANTOPRAZOLE INJ 80 MG in NA CHLORIDE 0.9% 250 ML IV SCH (09:30)
[2022-04-16] MEDS: SOD FERRIC GLUC COMPLX/SUCROSE 125 MG in NA CHLORIDE 0.9% 100 ML IV SCH (09:31)
[2022-04-16] MEDS: MORPHINE 2 MG/ML SYR IV PRN ×2 (09:32→17:16)
--- NOTE | 2022-04-16 10:17 | P.PN ---
Subjective Date of Service: 04/16/22 Chief Complaint: upper GI bleeding/ melanotic stool, 48 hours Subjective: Improving (Patient's condition is improving admitted with GI bleeding still short of breath) Review of Systems General: Weakness Respiratory: Shortness of Breath Gastrointestinal: Melena Physical Examination - Vital Signs Temperature: 97.8 F Blood Pressure: 175/71 Pulse: 80 Respirations: 18 Pulse Ox (%): 100 - Physical Exam General: Alert, Oriented x3, Mild distress Respiratory: Clear to auscultation bilaterally, Diminished Cardiovascular: No edema, Normal S1 S2 - Studies Medications List Reviewed: Yes Assessment And Plan - Current Problems (Diagnosis) (1) Chronic respiratory failure with hypoxia and hypercapnia Current Visit: Yes Status: Acute Plan: Patient has chronic respiratory failure noninvasive ventilator will be delivered to the hospital for patient to try titrate sat to 88 to 90% patient can use her trilogy at home and reduce the dose of steroids gnosis very poor terminal COPD (2) GI bleed Current Visit: Yes Status: Acute Plan: Patient has black tarry stools awaiting endoscopy patient was transfused 1 unit of packed red blood cells Qualifiers: GI bleed type/associated pathology: unspecified gastrointestinal hemorrhage type Qualified Code(s): K92.2 - Gastrointestinal hemorrhage, unspecified
[2022-04-16] MEDS ORDERED: LIDOCAINE 1% MPF 5 ML VIAL ONE (14:42)
[2022-04-16] MEDS ORDERED: propofoL 200 MG/20 ML VIAL IV ONE (14:42)
--- NOTE | 2022-04-16 15:33 | ENDO RPT ---
[address], [address] EGD PROCEDURE REPORT EXAM DATE: 04/16/2022 PATIENT NAME: Allison Vickers MR#: [id number] BIRTHDATE: 1935 ATTENDING: [address]yn[address] STATUS: inpatient - [facility] TUNING ENGINEER: Amador Gallegos CST and Ricarda Reeder RN INDICATIONS: The patient is a 87 yr old Female here for an EGD due to melenic bleeding and anemia PROCEDURE PERFORMED: EGD, diagnostic MEDICATIONS: Per Anesthesia. TOPICAL ANESTHETIC: none CONSENT: The patient understands the risks and benefits of the procedure and understands that these risks include, but are not limited to: sedation, allergic reaction, infection, perforation and/or bleeding. Alternative means of evaluation and treatment include, among others: physical exam, x-rays, and/or surgical intervention. The patient elects to proceed with this endoscopic procedure. DESCRIPTION OF PROCEDURE: During intra-op preparation period all mechanical medical equipment was checked for proper function. Hand hygiene and appropriate measures for infection prevention was taken. Procedure, possible complications, and alternatives including but not limited to the possibility of bleeding, perforation, tear, infection, sepsis, need for surgery, need for blood transfusion, and anesthesia related complications were explained to the patient. After the risks, benefits and alternatives of the procedure were thoroughly explained, Informed consent was verified, confirmed and timeout was successfully executed by the treatment team. The patient was placed in the left lateral position. The patient was anesthetized with topical anesthesia. Through the anesthetized oropharyngeal area, the scope was passed without any difficulty. The [id number] ([id number]) endoscope was introduced through the mouth and advanced to the third portion of the duodenum. Retroflexed views revealed a large hiatal hernia. The gastroscope was then slowly withdrawn and removed. A large hiatal hernia was found ADVERSE EVENTS: There were no complications. IMPRESSIONS: A large hiatal hernia (7 cm HH, GEJ at 33 cm, DI at 40 cm) RECOMMENDATIONS: 1. acid suppression therapy 2. colonoscopy (high risk with severe COPD, last colonoscopy 2019) 3. small bowel evaluation REPEAT EXAM: Mynor Banks Dr eSigned: Mynor Banks Dr 04/16/2022 3:33 PM cc: CPT CODES: ICD9 CODES: PATIENT NAME: Allison Vickers MR#: [id number]
[2022-04-16] MEDS ORDERED: BACLOFEN 10 MG TAB PO ONE (19:48)
[2022-04-16] MEDS: IPRATROPIUM BROM 0.5MG/2.5ML NEB PRN (20:30)
[2022-04-16] MEDS: MELATONIN 3 MG TABLET PO SCH (21:00)
[2022-04-16] MEDS: ENSURE HIGH PROTEIN 237 ML CAN PO SCH (21:00)
[2022-04-17] MEDS: PANTOPRAZOLE INJ 80 MG in NA CHLORIDE 0.9% 250 ML IV SCH ×3 (00:12→22:42)
[2022-04-17] MEDS: MORPHINE 2 MG/ML SYR IV PRN ×3 (02:17→18:57)
[2022-04-17] MEDS: HYDROCODONE/APAP 10/325 TAB PO PRN ×4 (04:11→22:49)
[2022-04-17 07:04] LABS: Absolute Lymphocytes (CBC) 0.6 K/uL (0.7-4.9); Hematocrit 23.6 % (36.0-45.0); Lymphocytes % 6.4 % (15.3-44.8); MCV 87.9 fL (80-100); RBC Red Blood Cell Count 2.68 M/uL (3.86-4.86)
[2022-04-17 07:13] LABS: Phosphorus 3.1 mg/dL (2.5-4.9); Potassium 4.3 mmol/L (3.5-5.1)
[2022-04-17] MEDS: ARFORMOTEROL TARTRATE 15 MCG/2 ML VIAL.NEB NEB SCH ×2 (08:00→20:20)
[2022-04-17] MEDS: ENSURE HIGH PROTEIN 237 ML CAN PO SCH ×2 (09:00→21:24)
[2022-04-17] MEDS: Fluticasone/Umeclidin/Vilanter [Trelegy Ellipta 100-62.5-25] Blst.W.Dev PO SCH (09:00)
[2022-04-17] MEDS: SOD FERRIC GLUC COMPLX/SUCROSE 125 MG in NA CHLORIDE 0.9% 100 ML IV SCH (10:12)
[2022-04-17] MEDS: POTASSIUM CL SA 10 MEQ TAB PO SCH (10:13)
[2022-04-17] MEDS: METHYLPREDNISOLONE 40 MG INJ IV SCH ×2 (10:13→21:18)
[2022-04-17] MEDS: AMLODIPINE 5 MG TAB PO SCH (10:13)
[2022-04-17] MEDS: acetaZOLAMIDE 250 MG TAB PO SCH (10:14)
[2022-04-17] MEDS: FOLIC ACID 1 MG TABLET PO SCH (10:14)
[2022-04-17] MEDS: LOSARTAN POTASSIUM 50 MG TABLET PO SCH (10:15)
[2022-04-17] MEDS: carvediloL 12.5 MG TAB PO SCH ×2 (10:15→16:57)
[2022-04-17] MEDS: LORATADINE 10 MG TAB PO SCH (10:15)
[2022-04-17] MEDS: GABAPENTIN 300 MG CAP PO SCH ×3 (10:15→21:17)
[2022-04-17] MEDS: NA CHLORIDE 0.9% 1,000 ML IV SCH (17:04)
[2022-04-17] MEDS: IPRATROPIUM BROM 0.5MG/2.5ML NEB PRN (20:20)
--- NOTE | 2022-04-17 20:49 | P.PN ---
Date of Service: 04/17/22 Subjective Patient continues to do well. Respiratory status has improved. The hemoglobin is stable. 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 Patient requesting rehab placement. If unable to go to rehab she would want to go home with home health. Working with physical therapy at this time. Review of Systems 10-point ROS is otherwise unremarkable Physical Examination - Vital Signs Reviewed - Physical Exam General: Alert, In no apparent distress, Cachectic Respiratory: Clear to auscultation bilaterally, Normal air movement Cardiovascular: Regular rate/rhythm, Normal S1 S2 Gastrointestinal: Normal bowel sounds, No tenderness Neurological: Normal speech, Normal tone, Normal affect Assessment & Plan - Problems (Diagnosis) (1) Anemia due to acute blood loss Current Visit: Yes Status: Acute (2) Microcytic anemia Current Visit: No Status: Acute (3) Congestive heart failure Current Visit: No Status: Chronic Qualifiers: (4) History of COPD Current Visit: No Status: Chronic (5) Hypertension Current Visit: No Status: Chronic Qualifiers: (6) UGIB (upper gastrointestinal bleed) Current Visit: Yes Status: Acute (7) Generalized weakness Current Visit: Yes Status: Acute - Plan Continue with plan of care as mentioned below: 1. Continue with IV hydration and PPI change to twice daily 2. Continue with IV antibiotics 3. Continue with pain control 4. Start clear liquid diet and advance as tolerated 5. GI consultation appreciated 6. Consulted pulmonary; added Brovana twice a day. Continue with neb treatments and continue with diuretics 7. Physical therapy evaluation appreciated 8. GI and DVT prophylaxis - Advance Directives Does patient have a Living Will: Yes Does patient have a Durable POA for Healthcare: Yes
[2022-04-17] MEDS ORDERED: SODIUM CHLORIDE 0.9% 10ML INJ IV PRN (20:51)
[2022-04-17] MEDS: predniSONE 20 MG TAB PO SCH (21:00)
[2022-04-17] MEDS: MELATONIN 3 MG TABLET PO SCH (21:17)
[2022-04-18] MEDS: HYDROCODONE/APAP 10/325 TAB PO PRN ×2 (05:46→17:07)
[2022-04-18 06:23] LABS: Absolute Lymphocytes (CBC) 0.4 K/uL (0.7-4.9); Hematocrit 31.8 % (36.0-45.0); MCV 90.4 fL (80-100); MPV 7.7 fL (7.6-11.3); RBC Red Blood Cell Count 3.51 M/uL (3.86-4.86)
[2022-04-18 06:31] LABS: AST/SGOT 8 U/L (15-37); Albumin 2.8 g/dL (3.4-5.0); Alkaline Phosphatase 38 U/L (45-117); BUN Blood Urea Nitrogen 20 mg/dL (7-18); Bicarbonate 27 mmol/L (21-32); Bilirubin Total 0.1 mg/dL (0.2-1.0); Glomerular Filtration Rate 88 ml/min (=/>90); Glucose Level 149 mg/dL (74-106); Magnesium 2.1 mg/dL (1.8-2.4); Potassium 4.9 mmol/L (3.5-5.1); Protein, Total 5.8 g/dL (6.4-8.2); Sodium Level 141 mmol/L (136-145)
[2022-04-18 06:35] LABS: ALT/SGPT < 10 U/L (12-78)
[2022-04-18] MEDS: ARFORMOTEROL TARTRATE 15 MCG/2 ML VIAL.NEB NEB SCH ×2 (08:00→20:30)
[2022-04-18] MEDS: ENSURE HIGH PROTEIN 237 ML CAN PO SCH ×2 (09:00→21:00)
[2022-04-18] MEDS: Fluticasone/Umeclidin/Vilanter [Trelegy Ellipta 100-62.5-25] Blst.W.Dev PO SCH (09:00)
[2022-04-18] MEDS ORDERED: PANTOPRAZOLE 40 MG INJ IVP SCH (09:00)
[2022-04-18] MEDS: LORATADINE 10 MG TAB PO SCH (10:11)
[2022-04-18] MEDS: SOD FERRIC GLUC COMPLX/SUCROSE 125 MG in NA CHLORIDE 0.9% 100 ML IV SCH (10:11)
[2022-04-18] MEDS: FOLIC ACID 1 MG TABLET PO SCH (10:12)
[2022-04-18] MEDS: LOSARTAN POTASSIUM 50 MG TABLET PO SCH (10:12)
[2022-04-18] MEDS: acetaZOLAMIDE 250 MG TAB PO SCH (10:13)
[2022-04-18] MEDS: POTASSIUM CL SA 10 MEQ TAB PO SCH (10:13)
[2022-04-18] MEDS: GABAPENTIN 300 MG CAP PO SCH ×3 (10:13→21:02)
[2022-04-18] MEDS: AMLODIPINE 5 MG TAB PO SCH (10:14)
[2022-04-18] MEDS: carvediloL 12.5 MG TAB PO SCH ×2 (10:14→17:07)
[2022-04-18] MEDS: predniSONE 20 MG TAB PO SCH ×2 (10:14→21:02)
[2022-04-18] MEDS: MORPHINE 2 MG/ML SYR IV PRN ×2 (10:15→21:02)
[2022-04-18] MEDS ORDERED: ALBUMIN HUMAN 25% 100 ML IV ONE ×2 (14:22→15:00)
[2022-04-18 17:29] LABS: Absolute Lymphocytes (CBC) 0.5 K/uL (0.7-4.9); Hematocrit 27.7 % (36.0-45.0); Lymphocytes % 3.7 % (15.3-44.8); MCV 90.5 fL (80-100); MPV 7.3 fL (7.6-11.3); RBC Red Blood Cell Count 3.06 M/uL (3.86-4.86)
[2022-04-18 18:08] LABS: Blood Morphology Comment NOT SEEN (NOT SEEN); Platelet Estimate ADEQ
[2022-04-18] MEDS: IPRATROPIUM BROM 0.5MG/2.5ML NEB PRN (20:30)
[2022-04-18] MEDS: PANTOPRAZOLE 40MG TABLET PO SCH (21:01)
[2022-04-18] MEDS: MELATONIN 3 MG TABLET PO SCH (21:02)
[2022-04-19] MEDS: HYDROCODONE/APAP 10/325 TAB PO PRN ×4 (00:13→20:14)
[2022-04-19 07:50] LABS: Absolute Lymphocytes (CBC) 0.6 K/uL (0.7-4.9); Lymphocytes % 4.8 % (15.3-44.8); MPV 7.9 fL (7.6-11.3); RBC Red Blood Cell Count 3.03 M/uL (3.86-4.86)
[2022-04-19] MEDS: ARFORMOTEROL TARTRATE 15 MCG/2 ML VIAL.NEB NEB SCH ×2 (08:00→20:50)
[2022-04-19] MEDS: SOD FERRIC GLUC COMPLX/SUCROSE 125 MG in NA CHLORIDE 0.9% 100 ML IV SCH (08:14)
[2022-04-19] MEDS: LORATADINE 10 MG TAB PO SCH (08:15)
[2022-04-19] MEDS: carvediloL 12.5 MG TAB PO SCH ×2 (08:15→17:54)
[2022-04-19] MEDS: AMLODIPINE 5 MG TAB PO SCH (08:15)
[2022-04-19] MEDS: predniSONE 20 MG TAB PO SCH ×2 (08:15→20:15)
[2022-04-19] MEDS: LOSARTAN POTASSIUM 50 MG TABLET PO SCH (08:15)
[2022-04-19] MEDS: GABAPENTIN 300 MG CAP PO SCH ×3 (08:15→20:15)
[2022-04-19] MEDS: POTASSIUM CL SA 10 MEQ TAB PO SCH (08:16)
[2022-04-19] MEDS: FOLIC ACID 1 MG TABLET PO SCH (08:17)
[2022-04-19] MEDS: ENSURE HIGH PROTEIN 237 ML CAN PO SCH ×2 (08:17→20:16)
[2022-04-19] MEDS: acetaZOLAMIDE 250 MG TAB PO SCH (08:17)
[2022-04-19] MEDS: Fluticasone/Umeclidin/Vilanter [Trelegy Ellipta 100-62.5-25] Blst.W.Dev PO SCH (08:18)
[2022-04-19] MEDS: PANTOPRAZOLE 40MG TABLET PO SCH ×2 (08:20→20:15)
[2022-04-19 08:23] LABS: Blood Morphology Comment NOT SEEN (NOT SEEN); Platelet Estimate ADEQ
--- NOTE | 2022-04-19 09:08 | P.PN ---
Date of Service: 04/18/22 Subjective patient with no new changes. Patient's clinical symptoms are stabilized. Respiratory status is stable and hemoglobin is stable as well. Patient continues to do well. Review of Systems 10-point ROS is otherwise unremarkable Physical Examination - Vital Signs Reviewed - Physical Exam General: Alert, In no apparent distress, Cachectic Respiratory: Clear to auscultation bilaterally, Normal air movement Cardiovascular: Regular rate/rhythm, Normal S1 S2 Gastrointestinal: Normal bowel sounds, No tenderness Neurological: Normal speech, Normal tone, Normal affect Assessment & Plan - Problems (Diagnosis) (1) Anemia due to acute blood loss Current Visit: Yes Status: Acute (2) Microcytic anemia Current Visit: No Status: Acute (3) Congestive heart failure Current Visit: No Status: Chronic Qualifiers: (4) History of COPD Current Visit: No Status: Chronic (5) Hypertension Current Visit: No Status: Chronic Qualifiers: (6) UGIB (upper gastrointestinal bleed) Current Visit: Yes Status: Acute (7) Generalized weakness Current Visit: Yes Status: Acute - Plan Continue with plan of care as mentioned below: 1. Continue with IV hydration and PPI change to twice daily 2. Continue with IV antibiotics; Can most likely change to oral antibiotics 3. Continue with pain control 4. soft diet started 5. arrange for inpatient rehab if accepted 6. Consulted pulmonary; added Brovana twice a day. Continue with neb treatments and continue with diuretics 7. Physical therapy evaluation appreciated 8. GI and DVT prophylaxis - Advance Directives Does patient have a Living Will: Yes Does patient have a Durable POA for Healthcare: Yes
[2022-04-19] MEDS: MORPHINE 2 MG/ML SYR IV PRN ×2 (10:30→17:53)
--- NOTE | 2022-04-19 15:41 | P.DS ---
Admission Date: 04/14/22 Discharge Date: 04/19/22 Disposition: TRANSFER TO INPATIENT REHAB Discharge Condition: GOOD Reason for Admission: upper GI bleeding/ melanotic stool, 48 hours Hospital Course: DIAGNOSES: # Acute Blood Loss Anemia secondary to Acute Upper Gastrointestinal Bleed (Melena) # Chronic Hypoxemic Hypercapnic Respiratory Failure - secondary to Chronic Obstructive Pulmonary Disease # Chronic Congestive Heart Failure # Steroid-Induced Leukocytosis # Iron-Deficiency Anemia # Large Hiatal Hernia # Gastroesophageal Reflux Disease # Chronic Pain Syndrome # Hypertension HOSPITAL COURSE: Ms. Allison Vickers is a pleasant 87 year old female with a past medical history significant for chronic hypercapnic hypoxic respiratory failure secondary to advanced chronic obstructive pulmonary disease, chronic congestive heart failure, recurrent pneumonias, and hypertension who was admitted to the [facility] on 04/14/2022 for acute blood loss anemia. She presented with a chief complaint of melena. Upon presentation, her vital signs were stable. Her hemoglobin was 8.4 on presentation. Gastroenterology was consulted and performed an esophagoduodenoscopy on 04/16/2022, which was notable only for a large hiatal hernia. Throughout her hospitalization, she did not exhibit any further episodes of melena and her hemoglobin remained stable. She was evaluated by physical therapy and it was advised that she be discharged to inpatient rehabilitation. She was accepted to the [facility] acute rehab and transferred there for continuous therapy. Of note, it appears that she intermittently would become slightly hypoxic, but this resolved with the use of her home BiPAP. She reports that her breathing is significantly better compared to her last admission, and she endorses no respiratory complaints. On 04/19/2022, she was seen on rounds and deemed medically stable for discharge. She was discharged with instructions to schedule a follow-up appointment with her PCP and Pulmonary following discharge from acute rehab. She and her family members were given the opportunity to ask questions and reported no further questions. Furthermore, all questions were answered to the best of my ability. Today, I personally spent 20 minutes on her case, of which greater than 50% of the time was spent in patient education, counseling, and coordination of care as described above. Vital Signs/Physical Exam: Temp Pulse Resp BP Pulse Ox 97.7 F 60 18 132/60 94 04/19/22 12:00 04/19/22 12:00 04/19/22 13:59 04/19/22 12:00 04/19/22 13:59 General: Alert, In no apparent distress, Oriented x3 HEENT: Atraumatic, Mucous membr. moist/pink, EOMI, Sclerae nonicteric Neck: Supple, JVD not distended Respiratory: Clear to auscultation bilaterally, Normal air movement, Diminished, Other (SpO2 100 % on 2 L nasal cannula) Cardiovascular: Regular rate/rhythm, Normal S1 S2, No gallops, No rubs, No murmurs Gastrointestinal: Normal bowel sounds, Soft and benign, No tenderness, No rebound, No guarding Musculoskeletal: No tenderness Integumentary: No rashes Neurological: Normal speech, Normal affect Laboratory Data at Discharge: WBC 13.4 K/uL (4.3-10.9) H 04/19/22 07:14 Hgb 8.7 g/dL (12.0-15.0) L 04/19/22 07:14 Hct 27.0 % (36.0-45.0) L 04/19/22 07:14 Plt Count 273 K/uL (152-406) 04/19/22 07:14 PT 11.3 SECONDS (9.5-12.5) 04/15/22 05:43 INR 1.03 04/15/22 05:43 APTT 26.5 SECONDS (24.3-36.9) 04/15/22 05:43 Sodium 141 mmol/L (136-145) 04/18/22 05:31 Potassium 4.9 mmol/L (3.5-5.1) 04/18/22 05:31 BUN 20 mg/dL (7-18) H 04/18/22 05:31 Creatinine 0.60 mg/dL (0.55-1.3) 04/18/22 05:31 Glucose 149 mg/dL (74-106) H 04/18/22 05:31 Phosphorus 3.1 mg/dL (2.5-4.9) 04/17/22 06:34 Magnesium 2.1 mg/dL (1.8-2.4) 04/18/22 05:31 Total Bilirubin 0.1 mg/dL (0.2-1.0) L 04/18/22 05:31 AST 8 U/L (15-37) L 04/18/22 05:31 ALT < 10 U/L (12-78) L 04/18/22 05:31 Alkaline Phosphatase 38 U/L (45-117) L 04/18/22 05:31 Home Medications: Carvedilol [Coreg] 12.5 mg PO BIDWM 05/15/20 Acetaminophen [Tylenol] 2 cap PO Q4HP PRN 02/16/22 Albuterol Sulfate [Proair Hfa] 2 puff PO Q6HR 02/16/22 Cholecalciferol (Vitamin D3) [Vitamin D3] 1 tab PO EVERY 7TH DAY 02/16/22 Cyanocobalamin (Vitamin B-12) [Vitamin B-12] 1 tab PO DAILY 02/16/22 Fluticasone/Umeclidin/Vilanter [Trelegy Ellipta 100-62.5-25] 1 puff PO DAILY 02/16/22 Folic Acid 1 tab PO DAILY 02/16/22 Gabapentin 1 cap PO TID 02/16/22 Hydrocodone Bit/Acetaminophen [Hydrocodon-Acetaminophn 10-325] 1 tab PO Q6HP PRN 02/16/22 Loratadine [Claritin*] 1 tab PO DAILY 02/16/22 Melatonin 1 tab PO BEDTIME 02/16/22 Pantoprazole [Protonix Tab*] 1 tab PO DAILY 02/16/22 Potassium Chloride [Klor-Con 10] 1 tab PO DAILY 02/16/22 Theophylline Anhydrous [Nate-24] 1 cap PO DAILY 02/16/22 Albuterol Neb [Proventil 0.083% Neb Soln] 2.5 mg NEB [id number] #60 amp 02/18/22 Amlodipine [Norvasc*] 5 mg PO DAILY #30 tab 02/18/22 Ipratropium Neb [Atrovent*] 0.5 mg NEB [id number] #60 amp 02/18/22 Losartan Potassium [Cozaar*] 50 mg PO DAILY #30 tablet 02/18/22 acetaZOLAMIDE [Diamox*] 125 mg PO DAILY #30 tab 04/09/22 predniSONE [Prednisone*] 10 mg PO BID 5 Days #10 tab 04/19/22 New Medications: predniSONE [Prednisone*] 10 mg PO BID 5 Days #10 tab Followup: NONE,NONE [Primary Care Provider] -
[2022-04-19] MEDS: MELATONIN 3 MG TABLET PO SCH (20:14)
[2022-04-19 20:18] VITALS: BP 148/65; TEMP 98.2
[2022-04-19 21:44] VITALS: O2SAT 98
--- NOTE | 2022-04-21 16:47 | CON ---
Date of Consultation: 04/15/2022 Reason For Consultation: GI bleed with melena, hemoglobin down to 7.6. History Of Present Illness: The patient is an 87-year-old white female with history of severe COPD e nd-stage, hypertension, diastolic congestive heart failure, gastroesophageal reflux disease, and anem ia of chronic disease. The patient presented to the hospital with melena over the past 2 days. The patient was recently hospitalized with COPD exacerbation, was sent home on steroids, and neb treatmen t. After getting home, started having dark stools, became black and thus she came back for further e valuation. Initially, her hemoglobin was 8.4, has drifted down below 8 now. Home Medications: Include Coreg, Tylenol, ProAir, vitamin D3, vitamin B12, Trelegy, folic acid, reina pentin, [place], Claritin, melatonin, omeprazole, pantoprazole, , albuterol, Proventil nebuli zer, Norvasc, Atrovent, Cozaar, Diamox, Levaquin. Allergies: TO CLINDAMYCIN AND CODEINE. Past Medical History: Significant for severe end-stage COPD, hypertension, diastolic congestive hear t failure, gastroesophageal reflux disease, chronic vertebral back pain with fractures in the past, a nemia of chronic disease, chronic pain, back surgeries, appendectomy, carpal tunnel surgery, tubal li gation. Family History: Father of stroke and hypertension. Mother of stroke and hypertension as w ell. Social History: No tobacco or alcohol. Physical Examination: Vital Signs: The patient is 5 feet 4 inches, 98 pounds, BMI of 16 kg/m2. She had a temperature of 9 8.5 degrees Fahrenheit, pulse 88, respirations 18, blood pressure 127/59, O2 saturation 87% on 2.5 L up to 93% on 2.5 L high-flow. General: Alert, elderly female, lying in bed, in mild distress with shortness of breath, but too bad . HEENT: Normocephalic, atraumatic. Anicteric. Pupils equal, round, and reactive to light. Extraocu lar movements intact. Oropharynx clear. Neck: Supple. Respirations: Decreased breath sounds bilaterally with mild labored breathing. Cardiac: Regular rate and rhythm. Gastrointestinal: Positive bowel sounds. Soft, nontender, nondistended. No hepatosplenomegaly. Extremities: May be some mild clubbing. No cyanosis. No edema. Neuro: Alert and oriented x3. Grossly nonfocal. Able to move all extremities. Laboratory Data: The patient had a white count of 7.1, hemoglobin of 7.6, hemoglobin of 23.4, MCV of 88, platelet count 308, polys of 66%, lymphocytes 22%, monocytes 9%, eosinophils 2%. The patient campa s a PT of 11.3, INR of 1.03, PTT of 26.5. Blood gas; pH 7.34, pCO2 of 53.2, pO2 of 42.7, bicarb of 2 7.6, oxygen saturation 76.3 with . She has sodium of 143, potassium of 3.9, chloride of 10 8, bicarb 32, BUN 13, creatinine of 0.58, glucose 79, calcium 8.5. Vitamin B12 of 1089, folate great er than 20. Iron of 43. She had B-type natriuretic peptide of 1096 consistent with CHF. UA was neg ative. COVID testing was negative. Chest x-ray revealed [id number] CHF versus volume overload , heart is mildly enlarged, bilateral pleural effusions also seen, mild bilateral interstitial pulmon rubén edema. Impression: 1.Gastrointestinal bleed with melena. 2.Anemia, hemoglobin of 7.6. 3.End-stage severe chronic obstructive pulmonary disease. 4.Diastolic congestive heart failure. 5.Gastroesophageal reflux disease. 6.Hypertension. 7.Chronic vertebral back pain secondary fractures, back surgeries. 8.Anemia of chronic disease. 9.Appendectomy, carpal tunnel surgery, and tubal ligation. Recommendations: 1.We will attempt high-risk EGD. Discussed case with primary care physician. Optimize COPD. 2.Continue PPI therapy. 3.Serial H and H and transfuse p.r.n. GENIA/SUNDEEP Voice ID: [id number] Report ID: [id number]
--- OUTSIDE RECORDS SUMMARY | 2022-04-22 02:38 | XMS REPORT | Continuity of Care Document ---
:1935 Author Organization [facility] [place] [facility] t Address [address] [place] [address] [address]. [address] [place] [address] Care Team Providers Name Role Phone Delicia LOPEZ Primary Care Physician ERIN Attending Clinician Unavailable ERIN Attending Clinician Unavailable Erin GURROLA Attending Clinician Doctor Unassigned, Name Attending Clinician Unavailable Matt SINGH Attending Clinician Theodore Mendez DO Attending Clinician Darrius LOPEZ, S Attending Clinician Gregoria LOPEZ Attending Clinician Cayden VERDUZCO Attending Clinician Rodney LOPEZ Attending Clinician Pob, Lab Main Attending Clinician Unavailable Gregoria LOPEZ Admitting Clinician Rodney LOPEZ Admitting Clinician Payers Payer Name Policy Type Policy Number Effective Date Expiration Date S ourcarol MEDICARE PART A \T\ [id number] 2002 B 00:00:00 COMMERCIAL [id number] 2014 NON-CONTRACT 00:00:00 GENERIC Problems Condition Condition [...] 2019-10 Uni vers due to due to 10-05 [place] chronic 2-02 [place]y of diastolic diastolic 00:00[place] heart heart 00 Medical failure failure [...] ity of 00:00: [place] 00 Medical Branch Penicill Propensi Active Unknown - 2019-10 Uni vers ins ty to See comments 0-30 ity of adverse 00:00: [place] reaction 00 Medical s Branch Clindamy Propensi Active Unknown - Pt [...] Comments Source Exposure to Not sure University SARS-CoV-2 (event) [facility] Alcohol intake 2021-12-17 2021-12-17 Current University of 00:00:00 00:00:00 non-drinker of [facility] alcohol Branch (finding) Cigarettes smoked 2019-01-05 2019-01-05 Univers ity of current (pack per 00:00:00 00:00:00 [facility] ) - Reported Branch Cigarette 2019-01-05 2019-01-05 University of pack-years 00:00:00 00:00:00 [facility] Tobacco use and 2019-01-05 2019-01-05 Never used Universit y of exposure 00:00:00 00:00:00 [facility] History of tobacco 2018-09-02 Cigarette Smoker University of use 00:00:00 [facility] Sex Ass[birth year] At [birth year] Universit y of 00:00:00 00:00:00 [facility] Smoking Status Start Date Stop Date Source Former smoker 2019-01-05 00:00:00 2019-01-05 00:00:00 Universi ty of [facility] Current every day 2018-04-18 00:00:00 [facility] smoker Medications Ordered Filled Start Stop Current Ordering Indication Dosage Frequency Signature Comments Components Source Medication Medication Date Date Medication? Clinician (SIG) Name Name doxycycline Yes [id number] 100mg Take 1 Univers hyclate 100 4-18 capsule by it y of mg capsule 00:00: mouth [place] 00 every 12 Medical (twelve) Branch hours. doxycycline Yes [id number] 100mg Take 1 Univers hyclate 100 4-18 capsule by it y of mg capsule 00:00: mouth [place] 00 every 12 Medical (twelve) Branch hours. doxycycline 2021- No [id number] 100mg Take 1 Univers hyclate 100 4-18 04-26 capsule by i ty of mg capsule 00:00: 04:59 mouth [place] 00 :00 every 12 Medical (twelve) Branch hours for 7 days. fluticasone Yes [id number] 1{puff} Inhale 1 Univers -umeclidin- 3-17 Puff ity of vilanter 00:00: daily. [place] (TRELEGY 00 Medical ELLIPTA) Branch 100-62.5-25 mcg DsDv fluticasone Yes [id number] 1{puff} Inhale 1 Univers -umeclidin- 3-17 Puff ity of vilanter 00:00: daily. [place] (TRELEGY 00 Medical ELLIPTA) Branch 100-62.5-25 mcg DsDv fluticasone Yes [id number] 1{puff} Inhale 1 Univers -umeclidin- 3-17 Puff ity of vilanter 00:00: daily. [place] (TRELEGY 00 Medical ELLIPTA) Branch 100-62.5-25 mcg DsDv fluticasone Yes [id number] 1{puff} Inhale 1 Univers -umeclidin- 3-17 Puff ity of vilanter 00:00: daily. [place] (TRELEGY 00 Medical ELLIPTA) Branch 100-62.5-25 mcg DsDv fluticasone Yes [id number] 1{puff} Inhale 1 Univers -umeclidin- 3-17 Puff ity of vilanter 00:00: daily. [place] [facility] Branch 100-62.5-25 mcg DsDv lidocaine 5 Yes [id number] 1{patch Apply 1 Univers % (700 8-25 } Patch to ity of mg/patch) 00:00: area(s) [place] patch 00 daily. Medical Branch lidocaine 5 Yes [id number] 1{patch Apply 1 Univers % (700 8-25 } Patch to ity of mg/patch) 00:00: area(s) [place] patch 00 daily. Medical Branch lidocaine 5 Yes [id number] 1{patch Apply 1 Univers % (700 8-25 } Patch to ity of mg/patch) 00:00: area(s) [place] patch 00 daily. Medical Branch lidocaine 5 Yes [id number] 1{patch Apply 1 Univers % (700 8-25 } Patch to ity of mg/patch) 00:00: area(s) [place] patch 00 daily. Medical Branch lidocaine 5 Yes [id number] 1{patch Apply 1 Univers % (700 8-25 } Patch to ity of mg/patch) 00:00: area(s) [place] patch 00 daily. Medical Branch tiotropium 2021- No [id number] 18ug Inhale 1 Univers 18 mcg 8-25 03-17 capsule ity of inhalation 00:00: 00:00 [place]. [place] :[place] tiotropium 2022- No [id number] 18ug Inhale 1 Univers 18 mcg 8-25 03-17 capsule ity of inhalation 00:00: 00:00 [place]. [place] :00 [place] foLIC acid Yes 1mg Take 1 [...] by ity o f 00:00: mouth at [place] 00 bedtime. Medical Branch pantoprazol Yes [id number] 40mg Take 1 Univers e 40 mg EC 8-24 tablet by ity of tablet 00:00: mouth [place] 00 daily. Medical Branch theophyllin Yes 200mg Take 1 Uni vers e (MIKKI-24) 8-24 capsule by it y of 200 mg 24 00:00: mouth [place] hr capsule 00 daily. Medical Branch vitamin Yes [id number] 1000ug Take 1 Un rubio B-12 1,000 [...] tablet 00 daily. Medical Branch ipratropium Yes [id number] 3mL Inhale 3 Univers -albuteroL 8-24 mL [...] [place] 00 daily. Medical Branch melatonin 3 2021-0 Yes 3mg Take 1 Univ ers mg tablet 8-24 tablet by ity o f 00:00: mouth at [place] 00 bedtime. Medical Branch pantoprazol 0 Yes [id number] 40mg Take 1 Univers e 40 mg EC 8-24 tablet by ity of tablet 00:00: mouth [place] 00 daily. Medical Branch theophyllin 0 Yes 200mg Take 1 Uni vers e (MIKKI-24) 8-24 capsule by it y of 200 mg 24 00:00: mouth [place] hr capsule 00 daily. Medical Branch vitamin 0 Yes [id number] 1000ug Take 1 Un rubio B-12 1,000 8-24 tablet by ity of mcg tablet 00:00: mouth [place] 00 daily. Medical Branch polyethylen Yes 17g Take 17 g U nivers e glycol 8-24 by mouth ity of 3350 00:00: daily. [place] (MIRALAX) [address] [place] [address] Branch gram/dose powder prednisoLON Yes 10mg Take [...] Medical times Branch daily with meals. acetaminoph 2020-0 Yes 650mg Take 650 U nivers en 8-24 mg by ity of (TYLENOL) 00:00: mouth [place] 325 mg Cap 00 every 4 Medica l (four) Branch hours as needed for Pain (scale 4-6) or Fever. gabapentin 0 Yes 300mg Take 1 Univ ers 300 mg 8-24 capsule by ity of capsule 00:00: mouth 3 [place] 00 (three) Medical times Branch daily. loratadine 2020-0 Yes 10mg Take 1 Unive rs (CLARITIN) 8-24 tablet by ity of 10 mg 00:00: mouth [place] tablet 00 daily. Medical Branch ipratropium Yes [id number] 3mL Inhale 3 Univers -albuteroL 8-24 mL [...] [place] 00 bedtime. Medical Branch pantoprazol Yes [id number] 40mg Take 1 Univers e 40 mg EC 8-24 tablet by ity of tablet 00:00: mouth [place] 00 daily. Medical Branch theophyllin Yes 200mg Take 1 Uni vers e (MIKKI-24) 8-24 capsule by it y of 200 mg 24 00:00: mouth [place] hr capsule 00 daily. Medical Branch vitamin Yes [id number] 1000ug Take 1 Un rubio B-12 1,000 [...] tablet 00 daily. Medical Branch ipratropium Yes [id number] 3mL Inhale 3 Univers -albuteroL 8-24 mL [...] 8-24 tablet by ity of 00:00: mouth [place] 00 daily. Medical Branch melatonin 3 Yes 3mg Take 1 Univ ers mg tablet 8-24 tablet by ity o f 00:00: mouth at [place] 00 bedtime. Medical Branch pantoprazol Yes [id number] 40mg Take 1 Univers e 40 mg EC 8-24 tablet by ity of tablet 00:00: mouth [place] 00 daily. Medical Branch theophyllin Yes 200mg Take 1 Uni vers e (MIKKI-24) 8-24 capsule by it y of 200 mg 24 00:00: mouth [place] hr capsule 00 daily. Medical Branch vitamin Yes [id number] 1000ug Take 1 Un rubio B-12 1,000 8-24 tablet by ity of mcg tablet 00:00: mouth [place] 00 daily. Medical Branch polyethylen Yes 17g Take 17 g U nivers e glycol 8-24 by mouth ity of 3350 00:00: daily. [place] (MIRALAX) 00 Medical 17 Branch gram/dose powder [...] tablet 00 daily. Medical Branch ipratropium Yes [id number] 3mL Inhale 3 Univers -albuteroL 8-24 mL [...] [place] 00 bedtime. Medical Branch pantoprazol Yes [id number] 40mg Take 1 Univers e 40 mg EC 8-24 tablet by ity of tablet 00:00: mouth [place] 00 daily. Medical Branch theophyllin Yes 200mg Take 1 Uni vers e (MIKKI-24) 8-24 capsule by it y of 200 mg 24 00:00: mouth [place] hr capsule 00 daily. Medical Branch vitamin Yes [id number] 1000ug Take 1 Un rubio B-12 1,000 8-24 tablet by ity of mcg tablet 00:00: mouth [place] 00 daily. Medical Branch polyethylen Yes 17g Take 17 g U nivers e glycol 8-24 by mouth ity of 3350 00:00: daily. [place] (MIRALAX) 00 Medical 17 Branch gram/dose powder [...] tablet 00 daily. Medical Branch ipratropium Yes [id number] 3mL Inhale 3 Univers -albuteroL 8-24 mL [...] ity o f 100 mg 00:00: mouth [place] capsule 00 daily. Medical Branch ferrous Yes 325mg Take 1 Univers sulfate 325 8-24 tablet by ity of mg (65 mg 00:00: mouth [place] iron) EC 00 daily with Medic al tablet breakfast. Branch fluticasone 2021- No 1{puff} Inhale 1 Univers -umeclidin- 8-24 03-17 Puff ity of vilanter 00:00: 00:00 daily. [place] (TRELEGY 00 :00 Medical ELLIPTA) Branch 100-62.5-25 mcg DsDv fluticasone 2021- No [id number] 1{puff} Inhale 1 Univers propion-chuck 8-24 03-17 Puff every i ty of meteroL 00:00: 00:00 12 [place] 250-50 00 :00 (twelve) Medical mcg/dose hours. Branch inhalation disk fluticasone 2021- No 1{puff} Inhale 1 Univers -umeclidin- 05-26 03-17 Puff ity of vilanter 00:00: 00:00 daily. [place] (TRELEGY 00 :00 Medical ELLIPTA) Branch 100-62.5-25 mcg DsDv fluticasone 2021- No [id number] 1{puff} Inhale 1 Univers propion-chuck 05-26-17 Puff every i ty of meteroL 00:00: 00:00 12 [place] 250-50 00 :00 (twelve) Medical mcg/dose hours. [...] Immunizations Ordered Filled Immunization Date Status Comments [facility] e Immunization Name Name Influenza Virus 2020-07-06 Completed Universit y of Vaccine 00:00:00 [facility] Influenza Virus 2020-07-06 Completed Universit y of Vaccine 00:00:00 [facility] Influenza Virus 2020-07-06 Completed Universit y of Vaccine 00:00:00 [facility] Influenza Virus 2020-07-06 Completed Universit y of Vaccine 00:00:00 [facility] Influenza Virus 2020-07-06 Completed Universit y of Vaccine 00:00:00 [facility] Influenza High Dose 2019-09-22 Completed Unive rsity of 00:00:00 [facility] Influenza High Dose 2019-09-22 Completed Unive rsity of 00:00:00 [facility] Influenza High Dose 2019-09-22 Completed Unive rsity of 00:00:00 [facility] Influenza High Dose 2019-09-22 Completed Unive rsity of 00:00:00 [facility] Influenza High Dose 2019-09-22 Completed Unive rsity of 00:00:00 [facility] PPD (TB) 2019-07-10 Completed University of 00:00:00 [facility] PPD (TB) 2019-07-10 Completed University of 00:00:00 [facility] PPD (TB) 2019-07-10 Completed University of 00:00:00 [facility] PPD (TB) 2019-07-10 Completed University of 00:00:00 [facility] PPD (TB) 2019-07-10 Completed University of 00:00:00 [facility] Vital Signs Vital Name Observation Time Observation Value Comments Source Systolic blood 2021-12-17 177 mm[Hg] University of pressure 19:10:00 [facility] Diastolic blood 2021-12-17 77 mm[Hg] [place] o f pressure 19:10:00 [facility] Heart rate 2021-12-17 77 /min University of 19:10:00 [facility] Respiratory rate 2021-12-17 23 /min University of 19:06:00 [facility] Body height 2021-12-17 152.4 cm University of 19:06:00 [facility] Body weight 2021-12-17 43.092 kg University of 19:06:00 [facility] BMI 2021-12-17 18.55 kg/m2 University of 19:06:00 [facility] Oxygen saturation 2021-12-17 78 /min with deep [facility] in Arterial blood 19:06:00 breaths 94% [facility] by Pulse oximetry [place] Procedures Procedure Date / Time Performed Performing Clinician [facility] HEALTH - OTHER 2022-01-05 05:01:00 Doctor Unassigned, No Un iversity of [facility] Plan of Care Planned Activity Planned Date Details Comments Source Future Scheduled Test 65+ PNEUMOCOCCAL [facility] VACCINE (1 of 2 - PPSV23) [code = 65+ PNEUMOCOCCAL VACCINE (1 of 2 - PPSV23)] Future Scheduled Test COVID-19 VACCINE (1) [facility] [code = COVID-19 VACCINE (1)] Future Scheduled Test SHINGLES VACCINES (#1) [facility] [code = SHINGLES VACCINES (#1)] Future Scheduled Test INFLUENZA VACCINE [code [facility] = INFLUENZA VACCINE] Encounters Start End Encounter Admission Attending Care Care Encounter Source Date/Time Date/Time Type Type Clinicians Facility Department ID 2022-04-26 2022-04-26 Outpatient R JUWAN KHAN [facility] [id number] Univers 11:00:00 11:00:00 JUWAN KHAN [id number] i ty of [facility] 2022-04-26 2022-04-26 Outpatient R JUWAN KHAN [facility] [id number] Univers 11:00:00 11:00:00 JUWAN KHAN i ty of [facility] 2022-02-26 2022-02-26 Telephone Erin MSJOANNA [id number] Univers 00:00:00 00:00:00 Juwan MARQUEZ [id number] i ty [place]7.2.[place] PROF[place] [id number] Il dical NAL [address] [place] [address] 2022-01-11 2022-01-11 Telephone Erin MSJOANNA [id number] Univers 00:00:00 00:00:00 Juwan MARQUEZ [id number] i ty [place]2.[place] [id number] Il dical NAL [address] [place] [address] 2022-01-05 2022-01-05 Orders Doctor CASAS [id number] Univers 00:00:00 00:00:00 Only Unassigned, GISELA [id number] ity of [place] [facility] 4.2.7.2.686 [place] as [phone] [place] [address] Branch 2021-12-17 2021-12-17 Office Erin [facility] [id number] Univers 14:00:00 14:30:00 Visit Juwan MARQUEZ [id number] i ty of [place] 4.2.7.2.686 Tiffanie STONEIO [phone] Il dical NAL 0[address] [facility] 2021-12-17 2021-12-17 Outpatient R JUWAN KHAN [facility] [id number] Univers 14:00:00 14:00:00 JUWAN KHAN i ty of [facility] 2020-08-11 2020-08-11 Transition Fred Gutierrez [id number] 00:00:00 00:00:00 of Care Lissa Willson [id number] [place] [id number] [id number] 2020-08-02 2020-08-09 Hospital Danae Mendez [facility] [id number] 18:18:00 17:46:00 Encounter Zuly Rizo 350.1.13.1 0 Lorene Kinney 4.2.7.2.686 [place] [id number] 2020-08-05 2020-08-05 Transition Fred Gutierrez [id number] 00:00:00 00:00:00 of Care Lissa Willson [id number] [place] 4.2.7.2.686 [id number] 2020-08-01 2020-08-02 Emergency Cecilia Rodarte [facility] 1.2.840. [id number] 13:38:00 14:03:00 Kris Stevens [id number] [place] 4.2.7.2.686 [place] [id number] 2020-07-21 2020-07-21 Orders Doctor CASAS [id number] 00:00:00 00:00:00 Only Unassigned, GISELA [id number] [place] [facility] 4.2.7.2.686 [id number] 2019-12-20 2019-12-20 [place] [employer] James Maki MSJOANNA [id number] 14:10:01 14:34:05 Visit Lab Main [place] [id number] [place] 4.2.7.2.686 [place] [id number] nal [address] Building Results Test Description Test Time Test Comments Results Result Comments Source SARS-COV2/RT-PCR ([facility]) 2020-04-28 19:12:00 Test Item Value Reference Range Interpretation Comme nts SARS-COV2/RT-PCR (test code = 0623758) Negative Not Detected, N egative, See external report for linked test SARS-COV-2 PERFORMING LAB (test code = [facility] [id number]) Negative results do not preclude SARS-CoV-2 infection [...] of the Act.Fact Sheet for Healthcare Pro viders:https://www.[employer]/Documents/Xpert%20Xpress%20SARS%20CoV-2/Fact%20Sh eets/302-2649%02FNGP-TAX-8%20HEALTHCARE%20PROVIDERS%20FACT%20SHEET.pdfFact Sheet for Healthcare Patients:https://www.[employer]/Documents/Xpert%20Xpress%20SARS%20CoV-2/Fact%20Sheets/302-3801%20SARS-COV -2%20PATIENT%20FACT%20SHEET.pdfPerforming Laboratory:[facility], [place] [address]IESE-HVW1/RT-PCR ([facility]) 2020-03-08 04:10:00 Test Item Value Reference Range Interpretation Comments SARS-COV2/RT-PCR (test Not Detected Not Detected, Negative code = [id number]) SARS-COV-[address] [facility] (test code = [id number]) Negative results do not preclude SARS-CoV-2 infection [...] of the Act.Fact Sheet for Healthcare Pro viders:https://www.[employer]/Documents/Xpert%20Xpress%20SARS%20CoV-2/Fact%20Sh eets/302-3802%26SXTU-TTW-4%20HEALTHCARE%20PROVIDERS%20FACT%20SHEET.pdfFact Sheet for Healthcare Patients:https://www.[employer]/Documents/Xpert%20Xpress%20SARS%20CoV-2/Fact%20Sheets/3023801%20SARS-COV -2%20PATIENT%20FACT%20SHEET.pdfPerforming Laboratory:[facility] [place] [address]
== END 2022-04-19 22:00 | DRG 378 ==
LOC: ER 11:28 → ERHOLD 18:12 → 2ND 19:15
PROVIDERS: ADMIT Hospitalist; ATTEND Hospitalist
PROC: 0DJ08ZZ Inspection of Upper Intestinal Tract, Via Natural or Artificial Opening Endoscopic (ICD-10-PCS; principal; 2022-04-16 14:30)
DX: K92.1 Melena (principal); D62 Acute posthemorrhagic anemia; J96.12 Chronic respiratory failure with hypercapnia; E44.0 Moderate protein-calorie malnutrition; Z68.1 Body mass index [BMI] 19.9 or less, adult; I50.32 Chronic diastolic (congestive) heart failure; J96.11 Chronic respiratory failure with hypoxia; R64 Cachexia; J44.9 Chronic obstructive pulmonary disease, unspecified; I11.0 Hypertensive heart disease with heart failure; K21.9 Gastro-esophageal reflux disease without esophagitis; K44.9 Diaphragmatic hernia without obstruction or gangrene; D72.829 Elevated white blood cell count, unspecified; G89.4 Chronic pain syndrome; D50.9 Iron deficiency anemia, unspecified; Z20.822 Contact with and (suspected) exposure to COVID-19
CPT/HCPCS: 36415; 71045; 80048; 80053; 81003; 82607; 82746; 82805; 83540; 83605; 83735; 83880; 84100; 84145; 84443; 84484; 85025; 85044; 85610; 85730; 86850; 86900; 86901; 93005; 94002; 94003; 94660; 94760; 96361; 96365; 96375; 97110; 97161; 97530; 99285; C9113; J0360; J1940; J2270; J2405; J2704; J2916; J2920; J7030; J7050; J7512; J7605; P9047; U0003

== ENCOUNTER 2022-04-19 13:47 | Inpatient (IN) | payer OTHER ==
--- NOTE | 2022-04-19 17:40 | R.PREADM ---
PRE-ADMISSION SCREENING FORM SCREENING DATE AND TIME 04/19/2022 14:24 (CDT) ANTICIPATED REHAB ADMISSION DATE 04/19/2022 REFERRING FACILITY [facility] REFERRAL DATE AND TIME 04/19/2022 14:25 (CDT) REFERRAL ROOM# 229 ACUTE ADMIT DATE 04/14/2022 Previous Rehabilitation(s): No. ACUTE CERAMIC DESIGN ENGINEER/DC MOTOR POOL CLERK JUANCHO ATTENDING PHYSICIAN DESEAN SHARPE MD REFERRING PHYSICIAN DESEAN SHARPE MD REHAB FACILITY [facility] CLINICAL LIAISON Trace Nguyen PHYSICIAN REVIEWER Dr. Yunior Goss M.D. [facility]# [id number] [id number] NAME BENJY SOTO [address] [facility] [id number] DATE OF 1935 AGE 87 SSN# [id number] GENDER female MARITAL STATUS ADMIT FROM 02 - [facility] PRE-HOSPITAL LIVING SETTING 01 - Home (private home/apt. board/care, assisted living, half-way, transitional living) HOME TYPE AND DETAILS Type of home: single family house # of levels in the residence: 1 # of steps within the residence: 0 # of steps to enter the residence: 0 PRE-HOSPITAL LIVING WITH Family/Relatives FAMILY SUPPORT Yes PRIMARY FAMILY CONTACT NAME AMADA SOTO PRIMARY FAMILY CONTACT PHONE PRIMARY FAMILY CONTACT RELATIONSHIP Spouse PHONE PRIMARY FAMILY CONTACT ON ADM.? no IS PRIMARY FAMILY CONTACT AUTH. REP.? no 1ST EMERGENCY CONTACT AMADA SOTO 1ST CONTACT PHONE 1ST CONTACT RELATIONSHIP Spouse PHONE 1ST CONTACT ON ADM. no IS 1ST CONTACT AUTH. REP.? no PHONE 2ND CONTACT ON ADM.? no PATIENT EMPLOYMENT STATUS Retired (for age) PATIENT EMPLOYER No Employer PAYOR INFORMATION: 1ST PAYOR NAME MEDICARE 1ST PAYOR PHONE 1ST PAYOR INJURY/ILLNESS DUE TO ACCIDENT? No ANOTHER LIBERTARIAN RESPONSIBLE? No PRIMARY REHAB/ACUTE DIAGNOSIS: K92.2 Acute Upper GI Bleed ONSET DATE 04/14/2022 REHAB IMPAIRMENT CATEGORY (AFSHAN): 20 Miscellaneous (Misc) does NOT meet 60% rule PRIMARY DIAGNOSIS-RELATED SURGERIES: ESOPHAGOGASTRODUODENOSCOPY (04/16/22) COMORBID REHAB/ACUTE DIAGNOSES: - Non-Tiered Essential (primary) hypertension (I10) Chronic obstructive pulmonary disease, unspecified (J44.9) Diastolic (congestive) heart failure (I50.3) Primary pulmonary hypertension (I27.0) Chronic respiratory failure, unspecified whether with hypoxia or hypercapnia (J96.10) Weakness (R53.1) INTERVENTIONS: - CHF monitoring of patient symptoms and medication management by physician Daily weights will be obtained Regular assessment of patient vitals. - Hypertension Blood pressure will be regularly assessed and medications administered as per physician recommendatio ns. - COPD Educate pt on use of incentive spirometer and deep breathing exercises Regular assessment of O2 saturation Supplemental O2 as inidicated Nebulizers as warranted - GI Bleed Medication to reduce GI irritation and provocation of bleeding as indicated by physician - Weakness Daily therapy services to enhance patient's functional strength and abilities. RISK FOR COMPLICATIONS: - Falls Patient will be evaluated for Fall Precautions and will be placed on Fall Precautions as indicated pe r protocol. Educated pt on fall prevention strategies to reduce/eliminate fall risk - Skin Breakdown Nursing will assess skin daily using assessment tool and will place on Skin Breakdown Precautions as Indicated per protocol - Weakness Regular therapeutic activity and exercise Strengthening exercises to be performed - Anemia Monitor for signs and symptoms of worsening GI bleed Transfuse if hemoglobin becomes too low Iron supplementation as managed by the physician - Pain Clinical staff will assess patient's pain level every shift per protocol to monitor for pain manageme nt effectiveness Educate patient on pain management strategies - CVA pt's blood pressures have been inconsistent and require monitoring and medication management as inidi cated by physician. - DVT Mobility training and regular exercise Monitor for signs and symptoms of DVT or PE. SUMMARY OF ACUTE HOSPITALIZATION: Pt. is a 87 yo Right-handed female. On 04/14/2022 she was admitted to [facility] with diagnosis K92.2 Acute Upper GI Bleed. Her impairment category is Debility 16 - Debility (16). Pre-morbidly, Pt. was independent/mod-I in Locomotion, Safety Awareness, Social Cognition, and Balanc e; and she had good Transfers Control, Sphincter Control, Self-Care, Communication, and Endurance. Currently, she has deficits of Locomotion, Safety Awareness, Social Cognition, Balance, Transfers Con trol, Self-Care, Sphincter Control, Communication, and Endurance. Pt. is now referred to [facility] for acute in-patient rehabilitation in order to maximize patient's functional independence in activities of daily living, strength, ROM, and mobi lity. Patient has realistic goal of being discharged at assistance level 7-Ind to reside at Home with Fami ly/Relatives. PAST MEDICAL HISTORY Essential (primary) hypertension (I10) CHRONIC VERTEBRAL FXS FORMER SMOKER ANEMIA OF CHRONIC DSE Other chronic pain (G89.29) Chronic diastolic (congestive) heart failure (I50.32) Primary pulmonary hypertension (I27.0) Chronic obstructive pulmonary disease, unspecified (J44.9) Gastrointestinal hemorrhage, unspecified (K92.2) Attention-deficit hyperactivity disorder, unspecified type (F90.9) Gastro-esophageal reflux disease without esophagitis (K21.9) PAST SURGICAL HISTORY: APPENDECTOMY BACK SURGERY CARPEL TUNNEL SURGERY TUBAL LIGATION MEDICATION ALLERGIES: CLINDAMYCIN CODINE ENVIRONMENTAL ALLERGIES: - Substance Allergies None Known - Other Allergies None Known CODE STATUS: Full code WEIGHT/HEIGHT/BMI: WEIGHT 98 lbs HEIGHT 5' 4" BMI 16.8 DIET: - Diet Type Regular - Diet - Solid Texture Regular - Diet - Liquid Texture Regular - Tube Feed N/A SKIN DIAGRAM: on Other; extent - small; stage - NS(Not Stageable). Treatment - . REVIEW OF SYSTEMS: - Gen Alert and awake Lying in bed No apparent distress Oriented to: person, time, and place - Vital Signs Temperature: 97.7 F SBP/DBP: 166/69 Pulse: 60 Resp: 18 Vital signs stable, afebrile - CVS RRR VITAL SIGNS Temperature: 97.7 F SBP/DBP: 166/69 Pulse: 60 Resp: 18 Vital signs stable, afebrile MEDICATIONS/TREATMENT: Other- See attached MAR (Medication Administration Record). CURRENT SPHINCTER CONTROL: Pre-hospital bladder status: unspecified # of bladder accidents in the last 7 days prior to screenin Pre-hospital bowel status: unspecified # of bowel accidents in the last 7 days prior to screenin Last Bowel Movement Date: 04/19/2022 CURRENT LOCOMOTION STATUS: distance walked 5 small steps DETAILED CURRENT FUNCTIONAL STATUS: - Bladder accident frequency: 7-Ind - No accidents in the past 7 days - Bowel accident frequency: 7-Ind - No accidents in the past 7 days - Walking score based on distance walked: 0(N/A) score based on distance walked: 1(<=50ft) - Wheelchair score based on distance traveled: 0(N/A) QI SCORES: - Self-Care A. Eating 04-Supervision or touching assistance B. Oral hygiene 04-Supervision or touching assistance C. Toileting hygiene 04-Supervision or touching assistance E. Shower/bathe self 03-Partial/moderate assistance F. Upper body dressing 03-Partial/moderate assistance G. Lower body dressing 03-Partial/moderate assistance H. Putting on/taking off footwear 88-Not attempted due to medical condition or safety concerns - Mobility A. Roll left and right 04-Supervision or touching assistance B. Sit to lying 03-Partial/moderate assistance C. Lying to sitting on side of bed 04-Supervision or touching assistance D. Sit to stand 03-Partial/moderate assistance E. Chair/moq-gi-lafis transfer 03-Partial/moderate assistance F. Toilet transfer 03-Partial/moderate assistance G. Car transfer 88-Not attempted due to medical condition or safety concerns I. Walk 10 feet 88-Not attempted due to medical condition or safety concerns J. Walk 50 feet with two turns 88-Not attempted due to medical condition or safety concerns K. Walk 150 feet 88-Not attempted due to medical condition or safety concerns L. Walking 10 feet on uneven surfaces 88-Not attempted due to medical condition or safety concerns M. 1 step (curb) 88-Not attempted due to medical condition or safety concerns N. 4 steps 88-Not attempted due to medical condition or safety concerns O. 12 steps 88-Not attempted due to medical condition or safety concerns P. Picking up object 88-Not attempted due to medical condition or safety concerns R. Wheel 50 feet with two turns 88-Not attempted due to medical condition or safety concerns S. Wheel 150 feet 88-Not attempted due to medical condition or safety concerns - Bladder and Bowel Bladder continence Bowel continence - Endurance Fair - Balance Fair - Safety Awareness Fair CURRENT FUNC. DEFICITS: Self-Care, Mobility, Endurance, Balance, and Safety Awareness CURRENT / PREVIOUS ASSISTIVE DEVICES: Rolling Walker HISTORY OF FALLS. HAS THE PATIENT HAD TWO OR MORE FALLS IN THE PAST YEAR OR ANY FALL WITH INJURY IN T HE PAST YEAR?: No PRIOR SURGERY. DID THE PATIENT HAVE MAJOR SURGERY DURING THE 100 DAYS PRIOR TO ADMISSION?: No THERAPY NOTES FROM ACUTE CARE: Attached. SPECIAL NEEDS: - Safety Concerns Skin breakdown precautions needed due to skin breakdown risk PATIENT NEEDS ACTIVE AND ONGOING THERAPEUTIC INTERVENTION OF MULTIPLE THERAPY DISCIPLINES, INCLUDING: - Dietary and Nutrition Adequate Nutrition. Nutritional Education. Nutritional Supplements. Evaluate and Treat. - Occupational Therapy Cognitive Retraining. Patient needs Occupational Therapy for a daily minimum of 1.5 hours at least 5 out of 7 days, to improve Activities of Daily Living, including: Eating, Grooming, Bathing, Dressing, Toileting, Toilet Transfers, Community Reintegration, Higher functional activities, Adaptive Equipme nt, Splinting, Household Tasks, and Other activities as determined. Visual Perceptual Training. Patie nt/Family Education. ADL Training. Evaluate and Treat. Transfer Training. Household Tasks. - Speech Therapy Cognitive Training. Expressive Language Skills. Memory Strategies. Patient needs Speech Therapy for a daily minimum of 1.5 hours at least 5 out of 7 days, to improve: Swallowing, Cognition, Language Ski lls, and Compensatory Strategies. Receptive Language Skills. Speech Intelligibility Training. Evaluat e and Treat. - Physical Therapy Patient needs Physical Therapy for a daily minimum of 1.5 hours at least 5 out of 7 days, to improve: Mobility, Strengthening, Transfers, Stretching, ROM, Endurance, Ability to manage stairs, Gait, and Balance. Gait Training. Balance Training. Safety Awareness. Transfer Training. Evaluate and Treat. Pa tient/Family Education. LE Strengthening. PATIENT NEEDS CLOSE MEDICAL SUPERVISION BY A REHABILITATION PHYSICIAN FOR: Coordination of Treatment Team Medical and Co-Morbidity Management Wound Care Pain Management DVT Management Respiratory/Airway Management PATIENT REQUIRES 24X7 REHAB NURSING FOR MEDICAL AND FUNCTIONAL MGT. OF THE FOLLOWING DEFICITS: Disease Management Medication Management Patient requires 24x7 Rehabilitation Nursing for: Pain Issues, Identifying and preventing risk factor s, Monitoring and reporting current medical conditions, Assisting with ambulation and transfer, Vonnie ting with all ADL-s, Teaching patients about disease process and medications, Family teaching, Provid ing safe environment, Bowel and Bladder Issues, Skin Integrity, and Medication Management Patient/Family Education Providing Safe Environment Skin Integrity PATIENT REQUIRES INTENSIVE, COORDINATED INTERDISCIPLINARY APPROACH TO REHAB: Arranging Home Equipment/Services Discharge Planning Family Intervention/Training Patient needs Dietary and Nutrition Services for: Adequate Nutrition, Nutritional Supplements, and Nu tritional Education Patient needs Knifeman and/or Case Management for: Discharge Planning, Arranging Home Equipmen t or Services, and Family Interventions Knifeman/Case Management PATIENT REHAB POTENTIAL: Clarisse SOTO is able and expected to receive 3 hours of individualized therapy daily on at least 5 of alfredito ry 7 days Clarisse SOTO's prognosis for significant practical improvement within a reasonable period of time appears Good Expected level of measurable improvement will be of a practical value to Clarisse FRANKLINs functional capaci ty or adaptations to impairments Has a viable Discharge Plan Medically appropriate; condition is sufficiently stable to participate in intensive rehab program DISCHARGE PLAN: - Estimated Length of Stay (days) 13. - Consensus on plan Discharge plan has been discussed with primary caregiver. Patient/Family is in agreement with the divya n. Primary caregiver is in agreement with the plan. - Patient/Family Goals Return home independently. - Planned Living Setting Upon Discharge Home, to live with Family/Relatives. Transitional Living. RECOMMENDED CARE LEVEL: IRF RECOMMENDATION DETAILS: Recommended Admission to Comprehensive Rehabilitation Program to Increase Functional Wilbarger SCREENER'S COMPLETENESS CONFIRMATION: - Screening Confirmation The patient data collection on this preadmission screening form is finished PHYSICIANS REVIEW AND ADMISSION DETERMINATION Admit - Based on my review of the Pre-Admission Screening results, in my medical judgment and experie nce, I concur with the findings and recommend admission to [facility], as this patient requires an IRF level of care. SIGNATURE PANEL: Rotor Blade Installer - [electronically] signed by Trace Nguyen on 04/19/2022 at 15:27 (CDT) Rotor Blade Installer - [electronically] signed by Rashad Leary PT on 04/19/2022 at 17:12 (CDT) Physician Reviewer - [electronically] signed by Dr. Yunior Goss M.D. on 04/19/2022 at 17:39 (CDT )
[2022-04-19] MEDS ORDERED: DOCUSATE NA/SENNA CONC 1 TAB PO PRN (22:37)
[2022-04-19] MEDS ORDERED: cloNIDine HCL 0.1 MG TAB PO PRN (22:37)
[2022-04-19] MEDS ORDERED: ONDANSETRON 4 MG (ODT) TAB PO PRN (22:37)
[2022-04-19] MEDS ORDERED: MELATONIN 3 MG TABLET PO PRN (22:37)
[2022-04-19] MEDS ORDERED: ALBUTEROL 2.5 MG/3 ML NEB SOL NEB PRN (22:52)
[2022-04-19] MEDS ORDERED: IPRATROPIUM BROM 0.5MG/2.5ML NEB PRN (22:53)
[2022-04-19 23:37] LABS: Specific Gravity 1.015 (1.005-1.030); Urine Bilirubin Negative (Negative); Urine Blood Negative (Negative); Urine Clarity Clear (Clear); Urine Color Yellow (Yellow); Urine Glucose Negative (Negative); Urine Protein Negative (Negative); Urine Urobilinogen 0.2 mg/dL (0.2-1.0); Urine pH 7.5 (5.0-7.0)
[2022-04-19 23:54] LABS: Urine Bacteria <20 /HPF (<20); Urine RBC <5 /HPF (None Seen)
[2022-04-20 04:46] LABS: Absolute Lymphocytes (CBC) 0.5 K/uL (0.7-4.9); Hematocrit 27.7 % (36.0-45.0); Lymphocytes % 2.2 % (15.3-44.8); MCV 88.8 fL (80-100); MPV 7.7 fL (7.6-11.3); RBC Red Blood Cell Count 3.12 M/uL (3.86-4.86)
[2022-04-20 05:01] LABS: Albumin 2.7 g/dL (3.4-5.0); Magnesium 2.1 mg/dL (1.8-2.4); Potassium 4.3 mmol/L (3.5-5.1); Prealbumin 23.2 mg/dL (20-40)
[2022-04-20 05:55] LABS: Basophilic Stippling 1+; Blood Morphology Comment NOTED (NOT SEEN); Ovalocytes 1+; Platelet Estimate ADEQ
[2022-04-20] MEDS: PANTOPRAZOLE 40MG TABLET PO SCH ×2 (06:29→16:59)
[2022-04-20] MEDS: HYDROCODONE/APAP 10/325 TAB PO PRN ×2 (06:30→12:31)
[2022-04-20] MEDS ORDERED: NA CHLORIDE 0.9% 100 ML ONE (07:02)
[2022-04-20] MEDS ORDERED: PIPERACIL/TAZO 3.375 GM VIAL IV ONE (07:03)
[2022-04-20] MEDS: LOSARTAN POTASSIUM 50 MG TABLET PO SCH ×2 (08:00→09:00)
[2022-04-20] MEDS: LORATADINE 10 MG TAB PO SCH (08:00)
[2022-04-20] MEDS ORDERED: AMLODIPINE 5 MG TAB PO SCH (08:00)
[2022-04-20] MEDS ORDERED: TRELEGY ELLIPTA IH SCH (08:00)
[2022-04-20] MEDS: ARFORMOTEROL TARTRATE 15 MCG/2 ML VIAL.NEB NEB SCH ×2 (08:04→20:10)
[2022-04-20] MEDS: SOD FERRIC GLUC COMPLX/SUCROSE 125 MG in NA CHLORIDE 0.9% 100 ML IV SCH (08:17)
[2022-04-20] MEDS: PIPER TAZO 3.375 GM in NA CHLORIDE 0.9% 100 ML IV SCH ×2 (08:53→16:58)
[2022-04-20] MEDS: acetaZOLAMIDE 250 MG TAB PO SCH (08:54)
[2022-04-20] MEDS: predniSONE 10 MG TAB PO SCH ×2 (08:55→20:22)
[2022-04-20] MEDS: POTASSIUM CL SA 10 MEQ TAB PO SCH (08:56)
[2022-04-20] MEDS: GABAPENTIN 300 MG CAP PO SCH ×2 (08:56→20:22)
[2022-04-20] MEDS: FOLIC ACID 1 MG TABLET PO SCH (08:56)
[2022-04-20] MEDS ORDERED: IPRATROPIUM BROM 0.5MG/2.5ML NEB SCH (09:00)
[2022-04-20] MEDS ORDERED: ALBUTEROL 2.5 MG/3 ML NEB SOL NEB SCH (09:00)
[2022-04-20] MEDS: carvediloL 12.5 MG TAB PO SCH ×2 (09:00→16:59)
[2022-04-20] MEDS: ENSURE HIGH PROTEIN 237 ML CAN PO SCH ×2 (09:01→20:22)
[2022-04-20] MEDS ORDERED: LIDOCAINE 4% PATCH TOP SCH (10:00)
[2022-04-20] MEDS: AMLODIPINE 5 MG TAB PO SCH (12:19)
[2022-04-20] MEDS ORDERED: BACLOFEN 10 MG TAB PO ONE (13:16)
[2022-04-20] MEDS ORDERED: BISACODYL 10 MG RECTAL SUPP PR ONE (14:00)
[2022-04-20] MEDS ORDERED: ALBUTEROL 2.5 MG/3 ML NEB SOL ONE (14:29)
[2022-04-20] MEDS ORDERED: IPRATROPIUM BROM 0.5MG/2.5ML ONE (14:29)
--- NOTE | 2022-04-20 15:52 | RAD REPORT ---
EXAM DESCRIPTION: RAD - Abdomen 1 View (KUB) - 04/20/2022 3:27 pm CLINICAL HISTORY: constipation COMPARISON: No comparisons FINDINGS: Nonobstructive bowel gas pattern. No acute osseous abnormality.Visualized lungs are unrema rkable.No abnormal calcifications. Moderate stool in the ascending and sigmoid colon. Degenerative ch anges in the lower spine. IMPRESSION: Nonobstructive bowel gas pattern. Moderate stool could represent constipation.
--- NOTE | 2022-04-20 16:23 | RAD REPORT ---
EXAM DESCRIPTION: RAD - Chest Single View - 04/20/2022 6:07 am CLINICAL HISTORY: 87 years Female, critical wbc 22.7 COMPARISON: 07/11/2019. FINDINGS: Mild prominence of the cardiomediastinal silhouette. Dense left retrocardiac opacity with obscuration of the left hemidiaphragm and costophrenic angle. Mild right basilar opacity with obscuration of the costophrenic angle. No pneumothorax. IMPRESSION: 1. Left basilar opacity and/or pneumonia. 2. Small bilateral pleural effusions. Electronically signed by: Elton Ang MD 04/20/2022 7:02 AM CDT Due to temporary technical issues with the PACS/Fluency reporting system, reports are being signed by the in house radiologists without review as a courtesy to insure prompt reporting. The interpreting radiologist is fully responsible for the content of the report.
--- NOTE | 2022-04-20 17:05 | R.HP ---
HISTORY AND PHYSICAL FACILITY: [facility] ENCOUNTER DATE AND TIME: 04/20/2022 12:47 (CDT) MR#: [id number] NAME BENJY SOTO ADDRESS: [address] [place] [address] CITY: [place] [address]IP [id number] PHONE: DATE OF : 1935 AGE: 87 SSN# [id number] GENDER: Female MARITAL STATUS PRE-HOSPITAL LIVING SETTING 01 - Home (private home/apt. board/care, assisted living, chcf, transitional living) PRE-HOSPITAL LIVING WITH Family/Relatives ENCOUNTER PHYSICIAN: Dr. Yunior Goss M.D. REFERRING DOCTOR: DESEAN SHARPE MD DATE OF ADMISSION: 04/19/2022 17:40 (CDT) REFERRING FACILITY [facility] HOME TYPE AND DETAILS: Type of home: single family house # of levels in the residence: 1 # of steps within the residence: 0 # of steps to enter the residence: 0 ONSET DATE: 04/14/2022 PRIMARY DIAGNOSIS-RELATED SURGERIES: ESOPHAGOGASTRODUODENOSCOPY (04/16/22) SECONDARY/COMORBID DIAGNOSES (TIERED): - Non-Tiered Essential (primary) hypertension (I10) Chronic obstructive pulmonary disease, unspecified (J44.9) Diastolic (congestive) heart failure (I50.3) Primary pulmonary hypertension (I27.0) Chronic respiratory failure, unspecified whether with hypoxia or hypercapnia (J96.10) Weakness (R53.1) HISTORY OF PRESENT ILLNESS (HPI): Pt. is a 87 yo Right-handed female. On 04/14/2022 she was admitted to [facility] with diagnosis K92.2 Acute Upper GI Bleed. Her impairment category is Debility 16 - Debility (16). Pre-morbidly, Pt. was independent/mod-I in Locomotion, Safety Awareness, Social Cognition, and Balanc e; and she had good Transfers Control, Sphincter Control, Self-Care, Communication, and Endurance. Currently, she has deficits of Locomotion, Safety Awareness, Social Cognition, Balance, Transfers Con trol, Self-Care, Sphincter Control, Communication, and Endurance. Pt. is now referred to [facility] for acute in-patient rehabilitation in order to maximize patient's functional independence in activities of daily living, strength, ROM, and mobi lity. Patient has realistic goal of being discharged at assistance level 7-Ind to reside at Home with Fami ly/Relatives. 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 Other chronic pain (G89.29) Chronic diastolic (congestive) heart failure (I50.32) Primary pulmonary hypertension (I27.0) Chronic obstructive pulmonary disease, unspecified (J44.9) Gastrointestinal hemorrhage, unspecified (K92.2) Attention-deficit hyperactivity disorder, unspecified type (F90.9) Gastro-esophageal reflux disease without esophagitis (K21.9) PAST SURGICAL HISTORY: APPENDECTOMY BACK SURGERY CARPEL TUNNEL SURGERY TUBAL LIGATION SOCIAL HISTORY: - Home Living Family/Relatives REVIEW OF SYSTEMS: - Gen No Chills Fatigue No Fever - Eyes No Double Vision No itchiness - ENMT No Difficulty Swallowing - CVS No Chest Discomfort No Chest Pain Fatigue No Weight Gain - Resp No Cough No Shortness of Breath - GI Continent No Abdominal Pain No Constipation No Diarrhea - Continent No Kidney Pain No Painful Urination No Urinary Urgency - MSK No Joint Pain Muscle Cramps Stiffness - Skin No Itching No Rash No Suspicious Lesions - Neuro Coordination Difficulty No Difficulty with Concentration No Memory Loss No Seizures No Weakness - Psych No Anxiety No Depression No HIV Exposure No Persistent Infections No Seasonal Allergies - Endo No Cold/Heat Intolerance No Excessive Hunger No Excessive Thirst No Excessive Urination PHYSICAL EXAM - Gen Alert and awake Lying in bed No apparent distress Oriented to: person, time, and place - Skin No breakdown No abnormalities - Eyes No abnormalities - ENMT No abnormalities - Neck No abnormalities - CVS RRR - Chest No abnormalities - Resp Clear to auscultation - Abd + bowel sounds - GI Soft Deferred - No abnormalities - Ext No significant edema - MSK 4/5 weakness in both lower extremities. - Neuro No focal deficits - Psych No abnormalities VITAL SIGNS Temperature: 97.8 F SBP/DBP: 113/52 Pulse: 79 Resp: 18 NURSING: - Shower allowing shower ACTIVITIES OOB only with supervision QI SCORES: - Self-Care A. Eating 04-Supervision or touching assistance B. Oral hygiene 04-Supervision or touching assistance C. Toileting hygiene 04-Supervision or touching assistance E. Shower/bathe self 03-Partial/moderate assistance F. Upper body dressing 03-Partial/moderate assistance G. Lower body dressing 03-Partial/moderate assistance H. Putting on/taking off footwear 88-Not attempted due to medical condition or safety concerns - Mobility A. Roll left and right 04-Supervision or touching assistance B. Sit to lying 03-Partial/moderate assistance C. Lying to sitting on side of bed 04-Supervision or touching assistance D. Sit to stand 03-Partial/moderate assistance E. Chair/yns-ch-euaoi transfer 03-Partial/moderate assistance F. Toilet transfer 03-Partial/moderate assistance G. Car transfer 88-Not attempted due to medical condition or safety concerns I. Walk 10 feet 88-Not attempted due to medical condition or safety concerns J. Walk 50 feet with two turns 88-Not attempted due to medical condition or safety concerns K. Walk 150 feet 88-Not attempted due to medical condition or safety concerns L. Walking 10 feet on uneven surfaces 88-Not attempted due to medical condition or safety concerns M. 1 step (curb) 88-Not attempted due to medical condition or safety concerns N. 4 steps 88-Not attempted due to medical condition or safety concerns O. 12 steps 88-Not attempted due to medical condition or safety concerns P. Picking up object 88-Not attempted due to medical condition or safety concerns R. Wheel 50 feet with two turns 88-Not attempted due to medical condition or safety concerns S. Wheel 150 feet 88-Not attempted due to medical condition or safety concerns - Bladder and Bowel Bladder continence Bowel continence - Endurance Fair - Balance Fair - Safety Awareness Fair CURRENT FUNC. DEFICITS: Self-Care, Mobility, Endurance, Balance, and Safety Awareness MEDICATIONS: - Other See attached MAR (Medication Administration Record) ASSESSMENT: Pt. is a 87 yo Right-handed female.On 04/14/2022 she was admitted to [facility] with katherin gnosis K92.2 Acute Upper GI Bleed.Her impairment category is Debility 16 - Debility (16).Pre-morbidl y, Pt. was independent/mod-I in Locomotion, Safety Awareness, Social Cognition, and Balance; and she had good Transfers Control, Sphincter Control, Self-Care, Communication, and Endurance.Currently, she has deficits of Locomotion, Safety Awareness, Social Cognition, Balance, Transfers Control, Self-Car e, Sphincter Control, Communication, and Endurance.Pt. is now referred to [facility] for acute in-patient rehabilitation in order to maximize patient's functional independence in activities of daily living, strength, ROM, and mobility.- Rehab Goal Patient has realistic goal of being discharged at assistance level 7-Ind to reside at Home with Fami ly/Relatives. - Physical Therapy Gait dysfunction - to improve, our physical therapists will perform initial evaluation of pt's status upon admission and devise an individualized program for Gait Training, and Wheel Chair mobility Inability to transfer - to improve, our physical therapists will perform initial evaluation of pt's s tatus upon admission and devise an individualized program for Bed mobility Need for home safety evaluation - to improve, our physical therapists will perform initial evaluation of pt's status upon admission and devise an individualized program for Home Evaluation Need in caregiver upon discharge - to improve, our physical therapists will perform initial evaluatio n of pt's status upon admission and devise an individualized program for Caregiver Training New precaution - to improve, our physical therapists will perform initial evaluation of pt's status u andrés admission and devise an individualized program for Patient precaution education Edema - to improve, our physical therapists will perform initial evaluation of pt's status upon admi ssion and devise an individualized program for Elevation Training, and Lymphedema Therapy Poor balance - to improve, our physical therapists will perform initial evaluation of pt's status upo n admission and devise an individualized program for Balance Training Poor endurance - to improve, our physical therapists will perform initial evaluation of pt's status u andrés admission and devise an individualized program for Endurance Training Weakness - to improve, our physical therapists will perform initial evaluation of pt's status upon ad mission and devise an individualized program for Aquatic Therapy, Neuromuscular Reeducation, and Stre ngthening Achieving independence - to improve, our physical therapists will perform initial evaluation of pt's status upon admission and devise an individualized program for Community Reintegration Activities - Occupational Therapy ADL deficits - to improve, our occupation therapists will perform initial evaluation of pt's status u andrés admission and devise an individualized program for Bathing, Bed mobility, Community Reintegration , Cooking, Dressing, Eating, Fine Motor Skills, Grooming, Homemaking, Kitchen Mobility, Laundry, Claire ent Education, Safety Awareness, Splinting - Positioning, Transfers(Toilet, Tub, Shower), and Wheel C hair Management Cognitive deficits - to improve, our occupation therapists will perform initial evaluation of pt's st atus upon admission and devise an individualized program for Cognition - orientation Need for rn managed care - to improve, our occupation therapists will perform initial evaluation of pt's s tatus upon admission and devise an individualized program for Caregiver Training Weakness - to improve, our occupation therapists will perform initial evaluation of pt's status upon admission and devise an individualized program for Aquatic Therapy, Balance, Endurance, UE ROM, and U E strengthening MEDICAL PLAN: - Diet Type Start Regular - Diet - Liquid Texture Start Regular - Tube Feed Start N/A - Other See attached MAR (Medication Administration Record) - Diet - Solid Texture Regular - Shower shower DISCHARGE PLAN: - Estimated Length of Stay (days) 13. - Consensus on plan Discharge plan has been discussed with primary caregiver. Patient/Family is in agreement with the divya n. Primary caregiver is in agreement with the plan. - Patient/Family Goals Return home independently. - Planned Living Setting Upon Discharge Home, to live with Family/Relatives. Transitional Living. SIGNATURE PANEL: (CDT)
--- NOTE | 2022-04-20 17:08 | PAPE ---
POST ADMISSION PHYSICIAN EVALUATION PATIENT: [facility] MR# [id number] REFERRING DOCTOR DESEAN SHARPE MD EVALUATION DATE AND TIME 04/20/2022 17:05 (CDT) NAME BENJY SOTO DATE OF 1935 AGE 87 PHONE N# [id number] GENDER female EVALUATING PHYSICIAN Dr. Yunior Goss M.D. ADMISSION DIAGNOSIS: K92.2 Acute Upper GI Bleed ONSET DATE 04/14/2022 SECONDARY/COMORBID DIAGNOSES TIERED: - Non-Tiered Essential (primary) hypertension (I10) Chronic obstructive pulmonary disease, unspecified (J44.9) Diastolic (congestive) heart failure (I50.3) Primary pulmonary hypertension (I27.0) Chronic respiratory failure, unspecified whether with hypoxia or hypercapnia (J96.10) Weakness (R53.1) POST-ADMISSION FUNCTIONAL/MEDICAL STATUS: - Bladder Same accident frequency: 7-Ind - No accidents in the past 7 days - Bowel Same accident frequency: 7-Ind - No accidents in the past 7 days - Walking Same score based on distance walked: 0(N/A) Same score based on distance walked: 1(<=50ft) - Wheelchair Same score based on distance traveled: 0(N/A) STATUS CHANGE EVALUATION: No change in Functional or Medical Status is identified compared with Pre-Admission screening. PATIENT NEEDS CLOSE MEDICAL SUPERVISION BY A REHABILITATION PHYSICIAN FOR: Coordination of Treatment Team Medical and Co-Morbidity Management Wound Care Pain Management DVT Management Respiratory/Airway Management PATIENT REQUIRES 24X7 REHAB NURSING FOR MEDICAL AND FUNCTIONAL MGT. OF THE FOLLOWING DEFICITS: Disease Management Medication Management Patient requires 24x7 Rehabilitation Nursing for: Pain Issues, Identifying and preventing risk factor s, Monitoring and reporting current medical conditions, Assisting with ambulation and transfer, Vonnie ting with all ADL-s, Teaching patients about disease process and medications, Family teaching, Provid ing safe environment, Bowel and Bladder Issues, Skin Integrity, and Medication Management Patient/Family Education Providing Safe Environment Skin Integrity PATIENT REQUIRES INTENSIVE, COORDINATED INTERDISCIPLINARY APPROACH TO REHAB: Arranging Home Equipment/Services Discharge Planning Family Intervention/Training Patient needs Dietary and Nutrition Services for: Adequate Nutrition, Nutritional Supplements, and Nu tritional Education Patient needs Visual Merchandising Assistant and/or Case Management for: Discharge Planning, Arranging Home Equipmen t or Services, and Family Interventions Visual Merchandising Assistant/Case Management LIST OF IDENTIFIED AND POTENTIAL PROBLEMS: Alteration in leisure activities Bladder, Incontinence Blood Pressure, Hypertension/hypotension Issues Bowel, Incontinence Infection, Actual or Potential Mobility Impaired Pain, Alteration in Comfort Self Care Deficit Skin Integrity, Actual or Potential Urinary Tract Infection (UTI), Actual or Potential RISK FOR COMPLICATIONS - Falls Patient will be evaluated for Fall Precautions and will be placed on Fall Precautions as indicated pe r protocol. Educated pt on fall prevention strategies to reduce/eliminate fall risk. - Skin Breakdown Nursing will assess skin daily using assessment tool and will place on Skin Breakdown Precautions as Indicated per protocol. - Weakness Regular therapeutic activity and exercise. Strengthening exercises to be performed. - Anemia Monitor for signs and symptoms of worsening GI bleed. Transfuse if hemoglobin becomes too low. Iron s upplementation as managed by the physician. - Pain Clinical staff will assess patient's pain level every shift per protocol to monitor for pain manageme nt effectiveness. Educate patient on pain management strategies. - CVA pt's blood pressures have been inconsistent and require monitoring and medication management as inidi cated by physician. - DVT Mobility training and regular exercise. Monitor for signs and symptoms of DVT or PE. INTERVENTIONS - CHF monitoring of patient symptoms and medication management by physician. Daily weights will be obtained . Regular assessment of patient vitals. - Hypertension Blood pressure will be regularly assessed and medications administered as per physician recommendatio ns. - COPD Educate pt on use of incentive spirometer and deep breathing exercises. Regular assessment of O2 satu ration. Supplemental O2 as inidicated. Nebulizers as warranted. - GI Bleed - Weakness Daily therapy services to enhance patient's functional strength and abilities. PATIENT COULD BE AT RISK FOR COMPLICATIONS FROM ADVERSE MEDICAL CONDITIONS DUE TO HIS/HER COMORBIDITI ES AND THE RIGORS OF THE INTENSIVE REHABILLITATION PROGRAM. METHODS OR INTERVENTIONS TO AVOID COMPLIC ATIONS INCLUDE: - Deep Vein Thrombosis (DVT) Prophylaxis therapy for prevention . Sequential Compression Device (SCD). TE D Hose. - Bleeding Assess lab values and manage abnormalities. Nursing to teach precautions for anti-coagulation therapy . Wound to be assessed every shift. - Infection Clinical staff to assess and manage the signs and symptoms of infection including fever, redness, war mth, etc. - Urinary Tract Infection - Falls Patient will be evaluated for Fall Precautions and will be placed on Fall Precautions as indicated pe r protocol. - Skin Breakdown Nursing will assess skin daily using assessment tool and will place on Skin Breakdown Precautions as indicated per protocol. - Pain Clinical staff may employ non-medication methods such as massage, distraction, decrease stimulus, etc . as needed. Clinical staff will assess patient's pain level every shift per protocol to assess and e nsure pain management effectiveness. Medications will be given and the pain level re-assessed. PRELIMINARY PLAN OF CARE: - Physical Therapy Patient needs Physical Therapy for a daily minimum of 1.5 hours at least 5 out of 7 days, to improve: Mobility, Strengthening, Transfers, Stretching, ROM, Endurance, Ability to manage stairs, Gait, and Balance. - Speech Therapy Patient needs Speech Therapy for a daily minimum of 0.5 hours at least 5 out of 7 days, to improve: S wallowing, Cognition, Language Skills, and Compensatory Strategies. - Rehabilitation Nursing Patient requires 24x7 Rehabilitation Nursing for: Pain Issues, Identifying and preventing risk factor s, Monitoring and reporting current medical conditions, Assisting with ambulation and transfer, Vonnie ting with all ADL-s, Teaching patients about disease process and medications, Family teaching, Provid ing safe environment, Bowel and Bladder Issues, Skin Integrity, and Medication Management. Patient needs Visual Merchandising Assistant and/or Case Management for: Discharge Planning, Arranging Home Equipmen t or Services, and Family Interventions. - Dietary and Nutrition Services Patient needs Dietary and Nutrition Services for: Adequate Nutrition, Nutritional Supplements, and Nu tritional Education. - Occupational Therapy Patient needs Occupational Therapy for a daily minimum of 1.5 hours at least 5 out of 7 days, to impr ove Activities of Daily Living, including: Eating, Grooming, Bathing, Dressing, Toileting, Toilet Tra nsfers, Community Reintegration, Higher functional activities, Adaptive Equipment, Splinting, Househo ld Tasks, and Other activities as determined. QI SCORES: - Self-Care A. Eating 04-Supervision or touching assistance B. Oral hygiene 04-Supervision or touching assistance C. Toileting hygiene 04-Supervision or touching assistance E. Shower/bathe self 03-Partial/moderate assistance F. Upper body dressing 03-Partial/moderate assistance G. Lower body dressing 03-Partial/moderate assistance H. Putting on/taking off footwear 88-Not attempted due to medical condition or safety concerns - Mobility A. Roll left and right 04-Supervision or touching assistance B. Sit to lying 03-Partial/moderate assistance C. Lying to sitting on side of bed 04-Supervision or touching assistance D. Sit to stand 03-Partial/moderate assistance E. Chair/xsm-ov-nyggf transfer 03-Partial/moderate assistance F. Toilet transfer 03-Partial/moderate assistance G. Car transfer 88-Not attempted due to medical condition or safety concerns I. Walk 10 feet 88-Not attempted due to medical condition or safety concerns J. Walk 50 feet with two turns 88-Not attempted due to medical condition or safety concerns K. Walk 150 feet 88-Not attempted due to medical condition or safety concerns L. Walking 10 feet on uneven surfaces 88-Not attempted due to medical condition or safety concerns M. 1 step (curb) 88-Not attempted due to medical condition or safety concerns N. 4 steps 88-Not attempted due to medical condition or safety concerns O. 12 steps 88-Not attempted due to medical condition or safety concerns P. Picking up object 88-Not attempted due to medical condition or safety concerns R. Wheel 50 feet with two turns 88-Not attempted due to medical condition or safety concerns S. Wheel 150 feet 88-Not attempted due to medical condition or safety concerns - Bladder and Bowel Bladder continence Bowel continence - Endurance Fair - Balance Fair - Safety Awareness Fair POTENTIAL FUNCTIONAL GOALS FOR PATIENT TO ACHIEVE BY DISCHARGE: - Safety Precaution Patient will remain free from falls or injury at time of discharge. - Bed Mobility Patient will perform bed mobility at 4-Venancio level of assistance. - Transfers Patient will complete transfers from bed to chair at 4-Venancio level of assistance. - Mobility Patient will ambulate 150 ft with 4-Venancio level of assistance with RW. PATIENT REHAB POTENTIAL Clarisse SOTO is able and expected to receive 3 hours of individualized therapy daily on at least 5 of alfredito ry 7 days Clarisse SOTO's prognosis for significant practical improvement within a reasonable period of time appears Good Expected level of measurable improvement will be of a practical value to Clarisse SOTO's functional capaci ty or adaptations to impairments Has a viable Discharge Plan Medically appropriate; condition is sufficiently stable to participate in intensive rehab program DISCHARGE PLAN: - Estimated Length of Stay (days) 13. - Consensus on plan Discharge plan has been discussed with primary caregiver. Patient/Family is in agreement with the divya n. Primary caregiver is in agreement with the plan. - Patient/Family Goals Return home independently. - Planned Living Setting Upon Discharge Home, to live with Family/Relatives. Transitional Living. CONCLUSION ON REHABILITATION NECESSITY: I have evaluated patient's pre-admission functional status and, comparing it to the patient's post-ad mission functional status now, I conclude that the pre-admission assessment was accurate. Patient's c ondition on admission supports the medical necessity of admission to [facility]. It is safe to proceed with patient's therapy program. SIGNATURE PANEL: (CDT)
--- NOTE | 2022-04-20 17:41 | R.PN ---
PROGRESS NOTES ENCOUNTER DATE AND TIME: 04/20/2022 17:35 (CDT) NAME BENJY SOTO DATE OF : 1935 DATE OF ADMISSION: 04/19/2022 17:40 (CDT) K92.2 Acute Upper GI BleedCHIEF COMPLAINT: Upper GI bleed SUBJECTIVE: Pt denied any Shortness of Breath. Pt denied any depression. Her WBC was elevated to 22.7 with 94.6 % neutrophilis, yesterday was 13.4. 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 Procalcitonin is normal at <0.05. She is on Zosyn 3 .375 mg q 8 hours VITAL SIGNS Temperature: 97.8 F SBP/DBP: 113/52 Pulse: 79 Resp: 18 MEDICATION ALLERGIES: CLINDAMYCIN CODINE ENVIRONMENTAL ALLERGIES: - Substance Allergies None Known - Other Allergies None Known NURSING: - Shower allowing shower ACTIVITIES OOB only with supervision THERAPIES: - Dietary and Nutrition Adequate Nutrition. Nutritional Education. Nutritional Supplements. Evaluate and Treat. - Occupational Therapy Cognitive Retraining. Patient needs Occupational Therapy for a daily minimum of 1.5 hours at least 5 out of 7 days, to improve Activities of Daily Living, including: Eating, Grooming, Bathing, Dressing, Toileting, Toilet Transfers, Community Reintegration, Higher functional activities, Adaptive Equipme nt, Splinting, Household Tasks, and Other activities as determined. Visual Perceptual Training. Patie nt/Family Education. ADL Training. Evaluate and Treat. Transfer Training. Household Tasks. - Speech Therapy Cognitive Training. Expressive Language Skills. Memory Strategies. Patient needs Speech Therapy for a daily minimum of 1.5 hours at least 5 out of 7 days, to improve: Swallowing, Cognition, Language Ski lls, and Compensatory Strategies. Receptive Language Skills. Speech Intelligibility Training. Evaluat e and Treat. - Physical Therapy Patient needs Physical Therapy for a daily minimum of 1.5 hours at least 5 out of 7 days, to improve: Mobility, Strengthening, Transfers, Stretching, ROM, Endurance, Ability to manage stairs, Gait, and Balance. Gait Training. Balance Training. Safety Awareness. Transfer Training. Evaluate and Treat. Pa tient/Family Education. LE Strengthening. PHYSICAL EXAM - Gen Alert and awake Lying in bed No apparent distress Oriented to: person, time, and place - Skin No breakdown No abnormalities - Eyes No abnormalities - ENMT No abnormalities - Neck No abnormalities - CVS RRR - Chest No abnormalities - Resp Clear to auscultation - Abd + bowel sounds - GI Soft Deferred - No abnormalities - Ext No significant edema - MSK 4/5 weakness in both lower extremities. - Neuro No focal deficits - Psych No abnormalities ASSESSMENT: Pt. is a 87 yo Right-handed female.On 04/14/2022 she was admitted to [facility] with katherin gnosis K92.2 Acute Upper GI Bleed.Her impairment category is Debility 16 - Debility (16).Pre-morbidl y, Pt. was independent/mod-I in Locomotion, Safety Awareness, Social Cognition, and Balance; and she had good Transfers Control, Sphincter Control, Self-Care, Communication, and Endurance.Currently, she has deficits of Locomotion, Safety Awareness, Social Cognition, Balance, Transfers Control, Self-Car e, Sphincter Control, Communication, and Endurance.Pt. is now referred to [facility] for acute in-patient rehabilitation in order to maximize patient's functional independence in activities of daily living, strength, ROM, and mobility.- Rehab Goal Patient has realistic goal of being discharged at assistance level 7-Ind to reside at Home with Fami ly/Relatives. MDM/PLAN: - Physical Therapy Gait dysfunction - to improve, our physical therapists will perform initial evaluation of pt's statu s upon admission and devise an individualized program for Gait Training, and Wheel Chair mobility Inability to transfer - to improve, our physical therapists will perform initial evaluation of pt's status upon admission and devise an individualized program for Bed mobility Need for home safety evaluation - to improve, our physical therapists will perform initial evaluatio n of pt's status upon admission and devise an individualized program for Home Evaluation Need in caregiver upon discharge - to improve, our physical therapists will perform initial evaluati on of pt's status upon admission and devise an individualized program for Caregiver Training New precaution - to improve, our physical therapists will perform initial evaluation of pt's status upon admission and devise an individualized program for Patient precaution education Edema - to improve, our physical therapists will perform initial evaluation of pt's status upon admis zoe and devise an individualized program for Elevation Training, and Lymphedema Therapy Poor balance - to improve, our physical therapists will perform initial evaluation of pt's status up on admission and devise an individualized program for Balance Training Poor endurance - to improve, our physical therapists will perform initial evaluation of pt's status upon admission and devise an individualized program for Endurance Training Weakness - to improve, our physical therapists will perform initial evaluation of pt's status upon a dmission and devise an individualized program for Aquatic Therapy, Neuromuscular Reeducation, and Str engthening Achieving independence - to improve, our physical therapists will perform initial evaluation of pt's status upon admission and devise an individualized program for Community Reintegration Activities - Occupational Therapy ADL deficits - to improve, our occupation therapists will perform initial evaluation of pt's status upon admission and devise an individualized program for Bathing, Bed mobility, Community Reintegratio n, Cooking, Dressing, Eating, Fine Motor Skills, Grooming, Homemaking, Kitchen Mobility, Laundry, Pat ient Education, Safety Awareness, Splinting - Positioning, Transfers(Toilet, Tub, Shower), and Wheel Chair Management Cognitive deficits - to improve, our occupation therapists will perform initial evaluation of pt's s tatus upon admission and devise an individualized program for Cognition - orientation Need for specialist wound care - to improve, our occupation therapists will perform initial evaluation of pt's status upon admission and devise an individualized program for Caregiver Training Weakness - to improve, our occupation therapists will perform initial evaluation of pt's status upon admission and devise an individualized program for Aquatic Therapy, Balance, Endurance, UE ROM, and UE strengthening - Other See attached MAR (Medication Administration Record) - Diet Type Continue Regular - Diet - Liquid Texture Continue Regular - Tube Feed Continue N/A - Diet - Solid Texture Continue Regular - Shower allowing shower FUNCTIONAL STATUS: UPDATED AT WEEKLY TEAM CONFERENCE - Bladder Same accident frequency: 7-Ind - No accidents in the past 7 days - Bowel Same accident frequency: 7-Ind - No accidents in the past 7 days - Walking Same score based on distance walked: 0(N/A) Same score based on distance walked: 1(<=50ft) - Wheelchair Same score based on distance traveled: 0(N/A) FUNCTIONAL STATUS: - Self-Care A. Eating Ind B. Grooming Cyrus C. Bathing modA D. Dressing - Upper Venancio E. Dressing - Lower modA F. Toileting Venancio - Sphincter Control G. Bladder control sup H. Bowel control Cyrus - Transfers Control I. Bed/Chair/Wheelchair modA J. Toilet modA K. Tub/Shower modA - Locomotion L. Walk/Wheelchair (B) modA M. Stairs ADNO - Communication N. Comprehension (B) Cyrus O. Expression (B) Ind - Social Cognition P. Social Interaction Ind Q. Problem Solving Cyrus R. Memory Cyrus - Endurance Poor - Balance Fair - Safety Awareness Good QI SCORES: - Self-Care A. Eating 04-Supervision or touching assistance B. Oral hygiene 04-Supervision or touching assistance C. Toileting hygiene 04-Supervision or touching assistance E. Shower/bathe self 03-Partial/moderate assistance F. Upper body dressing 03-Partial/moderate assistance G. Lower body dressing 03-Partial/moderate assistance H. Putting on/taking off footwear 88-Not attempted due to medical condition or safety concerns - Mobility A. Roll left and right 04-Supervision or touching assistance B. Sit to lying 03-Partial/moderate assistance C. Lying to sitting on side of bed 04-Supervision or touching assistance D. Sit to stand 03-Partial/moderate assistance E. Chair/[id number] transfer 03-Partial/moderate assistance F. Toilet transfer 03-Partial/moderate assistance G. Car transfer 88-Not attempted due to medical condition or safety concerns I. Walk 10 feet 88-Not attempted due to medical condition or safety concerns J. Walk 50 feet with two turns 88-Not attempted due to medical condition or safety concerns K. Walk 150 feet 88-Not attempted due to medical condition or safety concerns L. Walking 10 feet on uneven surfaces 88-Not attempted due to medical condition or safety concerns M. 1 step (curb) 88-Not attempted due to medical condition or safety concerns N. 4 steps 88-Not attempted due to medical condition or safety concerns O. 12 steps 88-Not attempted due to medical condition or safety concerns P. Picking up object 88-Not attempted due to medical condition or safety concerns R. Wheel 50 feet with two turns 88-Not attempted due to medical condition or safety concerns S. Wheel 150 feet 88-Not attempted due to medical condition or safety concerns - Bladder and Bowel Bladder continence Bowel continence - Endurance Fair - Balance Fair - Safety Awareness Fair CURRENT FUNC. DEFICITS: Self-Care, Mobility, Endurance, Balance, and Safety Awareness SIGNATURE PANEL: (CDT)
[2022-04-20] MEDS ORDERED: BACLOFEN 10 MG TAB PO SCH (20:00)
[2022-04-20] MEDS: IPRATROPIUM BROM 0.5MG/2.5ML NEB PRN (20:10)
[2022-04-20] MEDS: MAGNESIUM OXIDE 400 MG TAB PO SCH (20:22)
[2022-04-20] MEDS: TRELEGY ELLIPTA IH SCH (20:23)
[2022-04-20] MEDS: DOCUSATE NA/SENNA CONC 1 TAB PO SCH (20:23)
[2022-04-21] MEDS: PIPER TAZO 3.375 GM in NA CHLORIDE 0.9% 100 ML IV SCH ×3 (00:12→16:43)
[2022-04-21] MEDS: HYDROCODONE/APAP 5/325 MG TAB PO PRN ×4 (01:30→19:55)
[2022-04-21 05:15] LABS: Absolute Lymphocytes (CBC) 0.6 K/uL (0.7-4.9); Hematocrit 25.6 % (36.0-45.0); Lymphocytes % 2.9 % (15.3-44.8); MCV 90.9 fL (80-100); MPV 8.1 fL (7.6-11.3); RBC Red Blood Cell Count 2.82 M/uL (3.86-4.86)
[2022-04-21] MEDS: TRELEGY ELLIPTA IH SCH ×2 (06:17→19:55)
[2022-04-21] MEDS: ALBUTEROL 2.5 MG/3 ML NEB SOL NEB PRN (06:30)
[2022-04-21] MEDS: LIDOCAINE 4% PATCH TOP SCH (06:33)
[2022-04-21] MEDS: PANTOPRAZOLE 40MG TABLET PO SCH ×2 (06:34→16:43)
[2022-04-21] MEDS ORDERED: NA CHLORIDE 0.9% 100 ML ONE (06:39)
[2022-04-21] MEDS: MAGNESIUM OXIDE 400 MG TAB PO SCH ×2 (07:59→19:51)
[2022-04-21] MEDS: LOSARTAN POTASSIUM 50 MG TABLET PO SCH (08:00)
[2022-04-21] MEDS: GABAPENTIN 300 MG CAP PO SCH ×2 (08:00→19:51)
[2022-04-21] MEDS: carvediloL 12.5 MG TAB PO SCH ×2 (08:00→17:08)
[2022-04-21] MEDS: ARFORMOTEROL TARTRATE 15 MCG/2 ML VIAL.NEB NEB SCH ×2 (08:00→20:10)
[2022-04-21] MEDS: acetaZOLAMIDE 250 MG TAB PO SCH (08:00)
[2022-04-21] MEDS: FOLIC ACID 1 MG TABLET PO SCH (08:01)
[2022-04-21] MEDS: LORATADINE 10 MG TAB PO SCH (08:01)
[2022-04-21] MEDS: POTASSIUM CL SA 10 MEQ TAB PO SCH (08:01)
[2022-04-21] MEDS: ENSURE HIGH PROTEIN 237 ML CAN PO SCH ×2 (08:02→19:51)
[2022-04-21] MEDS: predniSONE 10 MG TAB PO SCH ×2 (08:03→19:51)
[2022-04-21] MEDS: SOD FERRIC GLUC COMPLX/SUCROSE 125 MG in NA CHLORIDE 0.9% 100 ML IV SCH (08:10)
[2022-04-21] MEDS: AMLODIPINE 5 MG TAB PO SCH (12:00)
[2022-04-21] MEDS ORDERED: SODIUM CHL 0.9% 1000 ML BAG IV ONE (16:21)
[2022-04-21] MEDS ORDERED: NA CHLORIDE 0.9% 1,000 ML IV SCH (17:00)
[2022-04-21] MEDS: DOCUSATE NA/SENNA CONC 1 TAB PO SCH (19:52)
[2022-04-21] MEDS: IPRATROPIUM BROM 0.5MG/2.5ML NEB PRN (20:10)
[2022-04-22] MEDS: PIPER TAZO 3.375 GM in NA CHLORIDE 0.9% 100 ML IV SCH ×3 (00:56→17:21)
[2022-04-22] MEDS: HYDROCODONE/APAP 5/325 MG TAB PO PRN ×4 (06:08→21:54)
[2022-04-22 06:49] LABS: Absolute Lymphocytes (CBC) 0.9 K/uL (0.7-4.9); Hematocrit 26.7 % (36.0-45.0); Lymphocytes % 6.3 % (15.3-44.8); MCV 90.4 fL (80-100); MPV 8.5 fL (7.6-11.3); RBC Red Blood Cell Count 2.95 M/uL (3.86-4.86)
[2022-04-22 07:07] LABS: Albumin 2.4 g/dL (3.4-5.0); Magnesium 2.4 mg/dL (1.8-2.4); Potassium 4.6 mmol/L (3.5-5.1); Prealbumin 15.1 mg/dL (20-40)
[2022-04-22] MEDS: ARFORMOTEROL TARTRATE 15 MCG/2 ML VIAL.NEB NEB SCH ×2 (08:00→21:00)
[2022-04-22] MEDS: PANTOPRAZOLE 40MG TABLET PO SCH ×2 (08:02→16:34)
[2022-04-22] MEDS: SOD FERRIC GLUC COMPLX/SUCROSE 125 MG in NA CHLORIDE 0.9% 100 ML IV SCH (08:03)
[2022-04-22 08:28] LABS: Blood Morphology Comment NOT SEEN (NOT SEEN); Platelet Estimate ADEQ
[2022-04-22] MEDS: FOLIC ACID 1 MG TABLET PO SCH (08:40)
[2022-04-22] MEDS: acetaZOLAMIDE 250 MG TAB PO SCH (08:40)
[2022-04-22] MEDS: LORATADINE 10 MG TAB PO SCH (08:41)
[2022-04-22] MEDS: carvediloL 12.5 MG TAB PO SCH ×2 (08:41→17:22)
[2022-04-22] MEDS: GABAPENTIN 300 MG CAP PO SCH ×2 (08:42→20:32)
[2022-04-22] MEDS: BACLOFEN 10 MG TAB PO PRN ×2 (08:43→18:38)
[2022-04-22] MEDS: ENSURE HIGH PROTEIN 237 ML CAN PO SCH ×2 (08:45→20:32)
[2022-04-22] MEDS: predniSONE 10 MG TAB PO SCH ×2 (08:49→20:31)
[2022-04-22] MEDS: MAGNESIUM OXIDE 400 MG TAB PO SCH ×2 (08:49→20:32)
[2022-04-22] MEDS: POTASSIUM CL SA 10 MEQ TAB PO SCH (08:49)
[2022-04-22] MEDS: LIDOCAINE 4% PATCH TOP SCH (09:05)
[2022-04-22] MEDS: LOSARTAN POTASSIUM 50 MG TABLET PO SCH (09:51)
[2022-04-22] MEDS: TRELEGY ELLIPTA IH SCH ×2 (09:51→20:32)
--- NOTE | 2022-04-22 10:09 | P.RH.PN ---
Estimated Length of Stay: 13 Expected Discharge Date: 05/02/22 Discharge Disposition Plan: Home Family Support: Yes Senior Living Goal: Mobility, Transfers, Self Care Vital Signs: Last Vital Signs Temp 96.6 F L 04/22/22 07:30 Pulse 60 04/22/22 08:41 Resp 16 04/22/22 07:30 BP 154/67 H 04/22/22 08:41 Pulse Ox 92 04/22/22 07:30 Laboratory: Laboratory Last Values WBC 13.8 K/uL (4.3-10.9) H D 04/22/22 06:27 RBC 2.95 M/uL (3.86-4.86) L 04/22/22 06:27 Hgb 8.6 g/dL (12.0-15.0) L 04/22/22 06:27 Hct 26.7 % (36.0-45.0) L 04/22/22 06:27 MCV 90.4 fL (80-100) 04/22/22 06:27 MCH 29.3 pg (27.0-35.0) 04/22/22 06:27 MCHC 32.4 g/dL (32.0-36.0) 04/22/22 06:27 RDW 15.6 % (12.1-15.2) H 04/22/22 06:27 Plt Count 262 K/uL (152-406) 04/22/22 06:27 MPV 8.5 fL (7.6-11.3) 04/22/22 06:27 Neutrophils % 89.4 % (41.7-73.7) H 04/22/22 06:27 Lymphocytes % 6.3 % (15.3-44.8) L 04/22/22 06:27 Monocytes % 3.8 % (3.3-12.3) 04/22/22 06:27 Eosinophils % 0.2 % (0-4.4) 04/22/22 06:27 Basophils % 0.3 % (0-1.3) 04/22/22 06:27 Absolute Neutrophils 12.4 K/uL (1.8-8.0) H 04/22/22 06:27 Segmented Neutrophils 86 % (40-80) H 04/22/22 06:27 Band Neutrophils 1 % (0-1) 04/22/22 06:27 Absolute Lymphocytes 0.9 K/uL (0.7-4.9) 04/22/22 06:27 Lymphocytes 8 % (15-42) L 04/22/22 06:27 Monocytes 3 % (0-10) 04/22/22 06:27 Absolute Monocytes 0.5 K/uL (0.1-1.3) 04/22/22 06:27 Absolute Eosinophils 0.0 K/uL (0-0.5) 04/22/22 06:27 Absolute Basophils 0.0 K/uL (0-0.5) 04/22/22 06:27 Metamyelocytes 2 % (0-0) H 04/22/22 06:27 Nucleated RBCs 1 /100WBC 04/22/22 06:27 Reactive Lymphocytes 2 % 04/20/22 04:08 Platelet Estimate Adeq 04/22/22 06:27 Clumped Platelets Few 04/22/22 06:27 Basophilic Stippling 1+ 04/20/22 04:08 Ovalocytes 1+ 04/20/22 04:08 Morphology Comment Not seen (NOT SEEN) 04/22/22 06:27 Sodium 144 mmol/L (136-145) 04/22/22 06:27 Potassium 4.6 mmol/L (3.5-5.1) 04/22/22 06:27 Chloride 112 mmol/L (98-107) H 04/22/22 06:27 Carbon Dioxide 28 mmol/L (21-32) 04/22/22 06:27 Anion Gap 8.6 mEq/L (5.0-15.0) 04/22/22 06:27 BUN 24 mg/dL (7-18) H 04/22/22 06:27 Creatinine 0.68 mg/dL (0.55-1.3) 04/22/22 06:27 Est GFR (CKD-EPI) 85 ml/min (=/>90) L 04/22/22 06:27 Glucose 116 mg/dL (74-106) H 04/22/22 06:27 Lactic Acid Cancelled 04/20/22 05:42 Calcium 9.0 mg/dL (8.5-10.1) 04/22/22 06:27 Magnesium 2.4 mg/dL (1.8-2.4) 04/22/22 06:27 Albumin 2.4 g/dL (3.4-5.0) L 04/22/22 06:27 Prealbumin 15.1 mg/dL (20-40) L 04/22/22 06:27 Procalcitonin < 0.05 ng/mL (<0.050) 04/20/22 07:45 Urine Color Yellow (Yellow) 04/19/22 23:35 Urine Clarity Clear (Clear) 04/19/22 23:35 Urine pH 7.5 (5.0-7.0) H 04/19/22 23:35 Ur Specific [place] 1.015 (1.005-1.030) 04/19/22 23:35 Glucose (UA)(Auto) Negative (Negative) 04/19/22 23:35 Urine Ketones Negative (Negative) 04/19/22 23:35 Urine Blood Negative (Negative) 04/19/22 23:35 Urine Nitrite Negative (Negative) 04/19/22 23:35 Urine Bilirubin Negative (Negative) 04/19/22 23:35 Urine Urobilinogen 0.2 mg/dL (0.2-1.0) 04/19/22 23:35 Ur Leukocyte Esterase Negative (Negative) 04/19/22 23:35 Urine RBC <5 /HPF (None Seen) 04/19/22 23:35 Urine Red Cell Clumps Cancelled 04/19/22 22:25 Urine WBC None seen /HPF (<5) 04/19/22 23:35 Urine WBC Clumps Cancelled 04/19/22 22:25 Ur Squamous Epith Cells <5 /HPF (None Seen) 04/19/22 23:35 U Non-Squamous Epi Cells <5 /HPF (None Seen) 04/19/22 23:35 Ur Transition Epith Cell Cancelled 04/19/22 22:25 Ur Renal Epithelial Cell Cancelled 04/19/22 22:25 Calcium Carbonate Cryst Cancelled 04/19/22 22:25 Calcium Oxalate Crystal Cancelled 04/19/22 22:25 Leucine Crystals Cancelled 04/19/22 22:25 Cystine Crystals Cancelled 04/19/22 22:25 Uric Acid Crystals Cancelled 04/19/22 22:25 Triple Phos Crystals Cancelled 04/19/22 22:25 Tyrosine Crystals Cancelled 04/19/22 22:25 Unidentified Crystals Cancelled 04/19/22 22:25 Amorphous Crystals Cancelled 04/19/22 22:25 Urine Bacteria <20 /HPF (<20) 04/19/22 23:35 Hyaline Casts Cancelled 04/19/22 22:25 Granular Casts Cancelled 04/19/22 22:25 Waxy Casts Cancelled 04/19/22 22:25 RBC Casts Cancelled 04/19/22 22:25 WBC Casts Cancelled 04/19/22 22:25 Urine Mucus Cancelled 04/19/22 22:25 Urine Trichomonas Cancelled 04/19/22 22:25 Ur Yeast w Hyphae Cancelled 04/19/22 22:25 Urine Yeast (Budding) Cancelled 04/19/22 22:25 Urine Sperm Cancelled 04/19/22 22:25 Ur Oval Fat Bodies Cancelled 04/19/22 22:25 Urine Total Protein Negative (Negative) 04/19/22 23:35 Urine Ascorbic Acid Cancelled 04/19/22 22:25 Urine Fat Cancelled 04/19/22 22:25 SARS-CoV-2 Rap RNA(RT-PCR) Negative (NEGATIVE) 04/20/22 09:30 Weight: 98 lb Wound Present: Yes Closed Surgical Incision Present: No Negative Pressure Wound Therapy Present: No Physician Update: Labs reviewed. Bed mobility mod to min assistance. Sit to stand, transfers min assist. Walked 12' with RW and min assistance. Summary: Patient's care plan and long term care pharmacist goals have been reviewed and revised as necessary. Please see the Rehabilitation Signature page for all necessary signatures.
--- OUTSIDE RECORDS SUMMARY | 2022-04-22 13:23 | XMS REPORT | Continuity of Care Document ---
:1935 Author Organization [facility] t Address [address] [place] [address] Dr. Bansal [address] [place] [address] Care Team Providers Name Role Phone Delicia [...] Date S ourcarol MEDICARE PART A \T\ [id number] 2002 B 00:00:00 COMMERCIAL [id number] 2014 NON-CONTRACT 00:00:00 GENERIC Problems Condition Condition [...] Exposure to Not sure University SARS-CoV-2 (event) [facility] Alcohol intake 2021-12-17 2021-12-17 Current University of 00:00:00 00:00:00 non-drinker of [facility] alcohol Branch (finding) Cigarettes smoked 2019-01-05 2019-01-05 Univers ity of current (pack per 00:00:00 00:00:00 [facility] ) - Reported Branch Cigarette 2019-01-05 2019-01-05 University of pack-years 00:00:00 00:00:00 [facility] Tobacco use and 2019-01-05 2019-01-05 Never used Universit y of exposure 00:00:00 00:00:00 [facility] History of tobacco 2018-09-02 Cigarette Smoker University of use 00:00:00 [facility] Sex Ass[birth year] At [birth year] Universit y of 00:00:00 00:00:00 [facility] Smoking Status Start Date Stop Date Source Former smoker 2019-01-05 00:00:00 2019-01-05 00:00:00 Universi ty of [facility] Current every day 2018-04-18 00:00:00 [facility] smoker Medications Ordered Filled Start Stop Current Ordering Indication Dosage Frequency Signature Comments Components Source Medication Medication Date Date Medication? Clinician (SIG) Name Name doxycycline Yes [id number] 100mg Take 1 Univers hyclate 100 4-18 capsule by it y of mg capsule 00:00: mouth [place] 00 every 12 Medical (twelve) Branch hours. doxycycline Yes [id number] 100mg Take 1 Univers hyclate 100 4-18 capsule by it y of mg capsule 00:00: mouth [place] 00 every 12 Medical (twelve) Branch hours. doxycycline 2021- No [id number] 100mg Take 1 Univers hyclate 100 4-18 04-26 capsule by i ty of mg capsule 00:00: 04:59 mouth [place] 00 :00 every 12 Medical (twelve) Branch hours for 7 days. fluticasone Yes [id number] 1{puff} Inhale 1 Univers -umeclidin- 3-17 Puff ity of vilanter 00:00: daily. [place] (TRELEGY 00 Medical ELLIPTA) Branch 100-62.5-25 mcg DsDv fluticasone Yes [id number] 1{puff} Inhale 1 Univers -umeclidin- 3-17 Puff ity of vilanter 00:00: daily. [place] (TRELEGY 00 Medical ELLIPTA) Branch 100-62.5-25 mcg DsDv fluticasone Yes [id number] 1{puff} Inhale 1 Univers -umeclidin- 3-17 Puff ity of vilanter 00:00: daily. [place] (TRELEGY 00 Medical ELLIPTA) Branch 100-62.5-25 mcg DsDv fluticasone Yes [id number] 1{puff} Inhale 1 Univers -umeclidin- 3-17 Puff ity of vilanter 00:00: daily. [place] (TRELEGY 00 Medical ELLIPTA) Branch 100-62.5-25 mcg DsDv fluticasone Yes [id number] 1{puff} Inhale 1 Univers -umeclidin- 3-17 Puff ity of vilanter 00:00: daily. [place] [facility] Branch 100-62.5-25 mcg DsDv lidocaine 5 Yes [id number] 1{patch Apply 1 Univers % (700 8-25 } Patch to ity of mg/patch) 00:00: area(s) [place] patch 00 daily. Medical Branch lidocaine 5 Yes [id number] 1{patch Apply 1 Univers % (700 8-25 } Patch to ity of mg/patch) 00:00: area(s) [place] patch 00 daily. Medical Branch lidocaine 5 Yes [id number] 1{patch Apply 1 Univers % (700 8-25 } Patch to ity of mg/patch) 00:00: area(s) [place] patch 00 daily. Medical Branch lidocaine 5 Yes [id number] 1{patch Apply 1 Univers % (700 8-25 } Patch to ity of mg/patch) 00:00: area(s) [place] patch 00 daily. Medical Branch lidocaine 5 Yes [id number] 1{patch Apply 1 Univers % (700 8-25 } Patch to ity of mg/patch) 00:00: area(s) [place] patch 00 daily. Medical Branch tiotropium 2021- No [id number] 18ug Inhale 1 Univers 18 mcg 8-25 03-17 capsule ity of inhalation 00:00: 00:00 [place]. [place] tiotropium 2022- No [id number] 18ug Inhale 1 Univers 18 mcg 8-25 [...] by ity o f 00:00: mouth at [place] 00 bedtime. Medical Branch pantoprazol Yes [id number] 40mg Take 1 Univers e 40 mg EC 8-24 tablet by ity of tablet 00:00: mouth [place] 00 daily. Medical Branch theophyllin Yes 200mg Take 1 Uni vers e (MIKKI-24) 8-24 capsule by it y of 200 mg 24 00:00: mouth [place] hr capsule 00 daily. Medical Branch vitamin Yes [id number] 1000ug Take 1 Un rubio B-12 1,000 [...] tablet 00 daily. Medical Branch ipratropium Yes [id number] 3mL Inhale 3 Univers -albuteroL 8-24 mL [...] by ity o f 00:00: mouth at [place] 00 bedtime. Medical Branch pantoprazol 0 Yes [id number] 40mg Take 1 Univers e 40 mg EC 8-24 tablet by ity of tablet 00:00: mouth [place] 00 daily. Medical Branch theophyllin 0 Yes 200mg Take 1 Uni vers e (MIKKI-24) 8-24 capsule by it y of 200 mg 24 00:00: mouth [place] hr capsule 00 daily. Medical Branch vitamin 0 Yes [id number] 1000ug Take 1 Un rubio B-12 1,000 8-24 tablet by ity of mcg tablet 00:00: mouth [place] 00 daily. Medical Branch polyethylen Yes 17g Take 17 g U nivers e glycol 8-24 by mouth ity of 3350 00:00: daily. [place] (MIRALAX) [address] [place] [address] Branch gram/dose powder prednisoLON Yes 10mg Take [...] tablet 00 daily. Medical Branch ipratropium Yes [id number] 3mL Inhale 3 Univers -albuteroL 8-24 mL [...] [place] 00 bedtime. Medical Branch pantoprazol Yes [id number] 40mg Take 1 Univers e 40 mg EC 8-24 tablet by ity of tablet 00:00: mouth [place] 00 daily. Medical Branch theophyllin Yes 200mg Take 1 Uni vers e (MIKKI-24) 8-24 capsule by it y of 200 mg 24 00:00: mouth [place] hr capsule 00 daily. Medical Branch vitamin Yes [id number] 1000ug Take 1 Un rubio B-12 1,000 [...] tablet 00 daily. Medical Branch ipratropium Yes [id number] 3mL Inhale 3 Univers -albuteroL 8-24 mL [...] 8-24 tablet by ity of 00:00: mouth [place] 00 daily. Medical Branch melatonin 3 Yes 3mg Take 1 Univ ers mg tablet 8-24 tablet by ity o f 00:00: mouth at [place] 00 bedtime. Medical Branch pantoprazol Yes [id number] 40mg Take 1 Univers e 40 mg EC 8-24 tablet by ity of tablet 00:00: mouth [place] 00 daily. Medical Branch theophyllin Yes 200mg Take 1 Uni vers e (MIKKI-24) 8-24 capsule by it y of 200 mg 24 00:00: mouth [place] hr capsule 00 daily. Medical Branch vitamin Yes [id number] 1000ug Take 1 Un rubio B-12 1,000 8-24 tablet by ity of mcg tablet 00:00: mouth [place] 00 daily. Medical Branch polyethylen Yes 17g Take 17 g U nivers e glycol 8-24 by mouth ity of 3350 00:00: daily. [place] (MIRALAX) 00 Medical 17 Branch gram/dose powder [...] tablet 00 daily. Medical Branch ipratropium Yes [id number] 3mL Inhale 3 Univers -albuteroL 8-24 mL [...] [place] 00 bedtime. Medical Branch pantoprazol Yes [id number] 40mg Take 1 Univers e 40 mg EC 8-24 tablet by ity of tablet 00:00: mouth [place] 00 daily. Medical Branch theophyllin Yes 200mg Take 1 Uni vers e (MIKKI-24) 8-24 capsule by it y of 200 mg 24 00:00: mouth [place] hr capsule 00 daily. Medical Branch vitamin Yes [id number] 1000ug Take 1 Un rubio B-12 1,000 8-24 tablet by ity of mcg tablet 00:00: mouth [place] 00 daily. Medical Branch polyethylen Yes 17g Take 17 g U nivers e glycol 8-24 by mouth ity of 3350 00:00: daily. [place] (MIRALAX) 00 Medical 17 Branch gram/dose powder [...] tablet 00 daily. Medical Branch ipratropium Yes [id number] 3mL Inhale 3 Univers -albuteroL 8-24 mL [...] ity o f 100 mg 00:00: mouth [place] capsule 00 daily. Medical Branch ferrous Yes 325mg Take 1 Univers sulfate 325 8-24 tablet by ity of mg (65 mg 00:00: mouth [place] iron) EC 00 daily with Medic al tablet breakfast. Branch fluticasone 2021- No 1{puff} Inhale 1 Univers -umeclidin- 8-24 03-17 Puff ity of vilanter 00:00: 00:00 daily. [place] (TRELEGY 00 :00 Medical ELLIPTA) Branch 100-62.5-25 mcg DsDv fluticasone 2021- No [id number] 1{puff} Inhale 1 Univers propion-chuck 8-24 03-17 Puff every i ty of meteroL 00:00: 00:00 12 [place] 250-50 00 :00 (twelve) Medical mcg/dose hours. Branch inhalation disk fluticasone 2021- No 1{puff} Inhale 1 Univers -umeclidin- 05-26 03-17 Puff ity of vilanter 00:00: 00:00 daily. [place] (TRELEGY 00 :00 Medical ELLIPTA) Branch 100-62.5-25 mcg DsDv fluticasone 2021- No [id number] 1{puff} Inhale 1 Univers propion-chuck 05-26-17 Puff every i ty of meteroL 00:00: 00:00 12 [place] 250-50 00 :00 (twelve) Medical mcg/dose hours. [...] Immunizations Ordered Filled Immunization Date Status Comments [facility] e Immunization Name Name Influenza Virus 2020-07-06 Completed Universit y of Vaccine 00:00:00 [facility] Influenza Virus 2020-07-06 Completed Universit y of Vaccine 00:00:00 [facility] Influenza Virus 2020-07-06 Completed Universit y of Vaccine 00:00:00 [facility] Influenza Virus 2020-07-06 Completed Universit y of Vaccine 00:00:00 [facility] Influenza Virus 2020-07-06 Completed Universit y of Vaccine 00:00:00 [facility] Influenza High Dose 2019-09-22 Completed Unive rsity of 00:00:00 [facility] Influenza High Dose 2019-09-22 Completed Unive rsity of 00:00:00 [facility] Influenza High Dose 2019-09-22 Completed Unive rsity of 00:00:00 [facility] Influenza High Dose 2019-09-22 Completed Unive rsity of 00:00:00 [facility] Influenza High Dose 2019-09-22 Completed Unive rsity of 00:00:00 [facility] PPD (TB) 2019-07-10 Completed University of 00:00:00 [facility] PPD (TB) 2019-07-10 Completed University of 00:00:00 [facility] PPD (TB) 2019-07-10 Completed University of 00:00:00 [facility] PPD (TB) 2019-07-10 Completed University of 00:00:00 [facility] PPD (TB) 2019-07-10 Completed University of 00:00:00 [facility] Vital Signs Vital Name Observation Time Observation Value Comments Source Systolic blood 2021-12-17 177 mm[Hg] University of pressure 19:10:00 [facility] Diastolic blood 2021-12-17 77 mm[Hg] [place] o f pressure 19:10:00 [facility] Heart rate 2021-12-17 77 /min University of 19:10:00 [facility] Respiratory rate 2021-12-17 23 /min University of 19:06:00 [facility] Body height 2021-12-17 152.4 cm University of 19:06:00 [facility] Body weight 2021-12-17 43.092 kg University of 19:06:00 [facility] BMI 2021-12-17 18.55 kg/m2 University of 19:06:00 [facility] Oxygen saturation 2021-12-17 78 /min with deep [facility] in Arterial blood 19:06:00 breaths 94% [facility] by Pulse oximetry [place] Procedures Procedure Date / Time Performed Performing Clinician [facility] HEALTH - OTHER 2022-01-05 05:01:00 Doctor Unassigned, No Un iversity of [facility] Plan of Care Planned Activity Planned Date Details Comments Source Future Scheduled Test 65+ PNEUMOCOCCAL [facility] VACCINE (1 of 2 - PPSV23) [code = 65+ PNEUMOCOCCAL VACCINE (1 of 2 - PPSV23)] Future Scheduled Test COVID-19 VACCINE (1) [facility] [code = COVID-19 VACCINE (1)] Future Scheduled Test SHINGLES VACCINES (#1) [facility] [code = SHINGLES VACCINES (#1)] Future Scheduled Test INFLUENZA VACCINE [code [facility] = INFLUENZA VACCINE] Encounters Start End Encounter Admission Attending Care Care Encounter Source Date/Time Date/Time Type Type Clinicians Facility Department ID 2022-04-26 2022-04-26 Outpatient R JUWAN KHAN [facility] [id number] Univers 11:00:00 11:00:00 JUWAN KHAN [id number] i ty of [facility] 2022-04-26 2022-04-26 Outpatient R JUWAN KHAN [facility] [id number] Univers 11:00:00 11:00:00 JUWAN KHAN i ty of [facility] 2022-02-26 2022-02-26 Telephone Erin IAJOANNA [id number] Univers 00:00:00 00:00:00 Juwan MARQUEZ [id number] i ty of [id number] PROF[place] [phone] Wa dical NAL [address] [place] [address] 2022-01-11 2022-01-11 Telephone Erin IAJOANNA [id number] Univers 00:00:00 00:00:00 Juwan MARQUEZ [id number] i ty [id number] [phone] Wa dical NAL [address] [place] [address] 2022-01-05 2022-01-05 Orders Doctor CASAS [id number] Univers 00:00:00 00:00:00 Only Unassigned, GISELA [id number] ity of [place] [facility] [id number] [place] [phone] [place] [id number] Branch 2021-12-17 2021-12-17 Office Erin [facility] [id number] Univers 14:00:00 14:30:00 Visit Juwan MARQUEZ [id number] i ty of [place] 4.2.7.2.686 Tiffanie STONEIO [phone] Wa dical NAL 085 [facility] 2021-12-17 2021-12-17 Outpatient R JUWAN KHAN [facility] [id number] Univers 14:00:00 14:00:00 JUWAN KHAN i ty of [facility] 2020-08-11 2020-08-11 Transition Fred Gutierrez [id number] 00:00:00 00:00:00 of Care Lissa Willson [id number] [place] [id number] [id number] 2020-08-02 2020-08-09 Hospital Danae Mendez [facility] [id number] 18:18:00 17:46:00 Encounter Zuly Rizo 350.1.13.1 0 Lorene Kinney 4.2.7.2.686 [place] [id number] 2020-08-05 2020-08-05 Transition Fred Gutierrez [id number] 00:00:00 00:00:00 of Care Lissa Willson [id number] [place] 4.2.7.2.686 [id number] 2020-08-01 2020-08-02 Emergency Cecilia Rodarte [facility] 1.2.840. [id number] 13:38:00 14:03:00 Kris Stevens [id number] [place] 4.2.7.2.686 [place] [id number] 2020-07-21 2020-07-21 Orders Doctor CASAS [id number] 00:00:00 00:00:00 Only Unassigned, GISELA [id number] [place] [facility] 4.2.7.2.686 [id number] 2019-12-20 2019-12-20 State'S Attorney James Maki IAJOANNA [id number] 14:10:01 14:34:05 Visit Lab Main [place] [id number] [place] 4.2.7.2.686 [place] [id number] nal [address] Building Results Test Description Test Time Test Comments Results Result Comments Source SARS-COV2/RT-PCR ([facility]) 2020-04-28 19:12:00 Test Item Value Reference Range Interpretation Comme nts SARS-COV2/RT-PCR (test code = 1617822) Negative Not Detected, N egative, See external report for linked test SARS-COV-2 PERFORMING LAB (test code = [facility] 3771788) Negative results do not preclude SARS-CoV-2 infection [...] of the Act.Fact Sheet for Healthcare Pro viders:https://www.GoPlanit.[employer]/Documents/Xpert%20Xpress%20SARS%20CoV-2/Fact%20Sh eets/302-3811%09UVFE-RWL-5%20HEALTHCARE%20PROVIDERS%20FACT%20SHEET.pdfFact Sheet for Healthcare Patients:https://www.[employer]/Documents/Xpert%20Xpress%20SARS%20CoV-2/Fact%20Sheets/302-3801%20SARS-COV -2%20PATIENT%20FACT%20SHEET.pdfPerforming Laboratory:[facility], [place] [address]OYFO-KGI8/RT-PCR ([facility] REF [facility]) 2020-03-08 04:10:00 Test Item Value Reference Range Interpretation Comments SARS-COV2/RT-PCR (test Not Detected Not Detected, Negative code = 1252365) SARS-COV-2 PERFORMING LAB [facility] (test code = 6828264) Negative results do not preclude SARS-CoV-2 infection [...] of the Act.Fact Sheet for Healthcare Pro viders:https://www.[employer]/Documents/Xpert%20Xpress%20SARS%20CoV-2/Fact%20Sh eets/302-3802%16ZEIR-KZU-4%20HEALTHCARE%20PROVIDERS%20FACT%20SHEET.pdfFact Sheet for Healthcare Patients:https://www.[employer]/Documents/Xpert%20Xpress%20SARS%20CoV-2/Fact%20Sheets/3023801%20SARS-COV -2%20PATIENT%20FACT%20SHEET.pdfPerforming Laboratory:[facility] [place] [address]
[2022-04-22] MEDS: AMLODIPINE 5 MG TAB PO SCH (14:39)
[2022-04-22] MEDS: DOCUSATE NA/SENNA CONC 1 TAB PO SCH (20:32)
[2022-04-22] MEDS: IPRATROPIUM BROM 0.5MG/2.5ML NEB PRN (21:00)
[2022-04-23] MEDS: PIPER TAZO 3.375 GM in NA CHLORIDE 0.9% 100 ML IV SCH ×3 (00:38→17:08)
[2022-04-23] MEDS: ALBUTEROL 2.5 MG/3 ML NEB SOL NEB PRN ×2 (03:45→13:50)
[2022-04-23] MEDS: IPRATROPIUM BROM 0.5MG/2.5ML NEB PRN ×2 (03:45→13:50)
[2022-04-23] MEDS: HYDROCODONE/APAP 5/325 MG TAB PO PRN ×2 (04:36→08:02)
[2022-04-23] MEDS: ACETAMINOPHEN 500 MG TAB PO PRN (06:09)
[2022-04-23] MEDS: PANTOPRAZOLE 40MG TABLET PO SCH ×2 (07:04→16:30)
[2022-04-23] MEDS: TRELEGY ELLIPTA IH SCH ×2 (07:05→19:49)
[2022-04-23] MEDS: carvediloL 12.5 MG TAB PO SCH ×2 (07:57→16:59)
[2022-04-23] MEDS: FOLIC ACID 1 MG TABLET PO SCH (07:57)
[2022-04-23] MEDS: MAGNESIUM OXIDE 400 MG TAB PO SCH ×2 (07:57→19:47)
[2022-04-23] MEDS: LOSARTAN POTASSIUM 50 MG TABLET PO SCH (07:57)
[2022-04-23] MEDS: POTASSIUM CL SA 10 MEQ TAB PO SCH (07:58)
[2022-04-23] MEDS: FE SULF/FA/VIT B COMP & C TAB PO SCH (07:58)
[2022-04-23] MEDS: GABAPENTIN 300 MG CAP PO SCH ×2 (07:58→19:47)
[2022-04-23] MEDS: predniSONE 10 MG TAB PO SCH ×2 (07:58→19:47)
[2022-04-23] MEDS: acetaZOLAMIDE 250 MG TAB PO SCH (07:58)
[2022-04-23] MEDS: ENSURE HIGH PROTEIN 237 ML CAN PO SCH ×2 (07:59→19:47)
[2022-04-23] MEDS: LORATADINE 10 MG TAB PO SCH (07:59)
[2022-04-23] MEDS: ARFORMOTEROL TARTRATE 15 MCG/2 ML VIAL.NEB NEB SCH ×2 (08:00→20:32)
[2022-04-23] MEDS: BACLOFEN 10 MG TAB PO PRN (09:22)
[2022-04-23] MEDS: LIDOCAINE 4% PATCH TOP SCH (10:05)
--- NOTE | 2022-04-23 11:42 | RAD REPORT ---
EXAM DESCRIPTION: RAD - Barium Swallow Modified - 04/23/2022 11:36 am CLINICAL HISTORY: Pneumonia FINDINGS: LARYNGEAL PENETRATION: NOT CLEARED WITH THIN -PHARYNGEAL RESIDUE: VALLECULAR -MILD TRACE WITH THIN, PUREE -MUSCULAR POSTERIOR PHARYNGEAL WALL PROTRUSION AT INFERIOR CERVICAL VERTEBRAE, DECREASED HYOID EXCURS ION, ABSENT EPIGLOTTIC DEFLECTION, DECREASED LARYNGEAL ELEVATION, MODERATE ESOPHAGEAL DYSMOTILITY AT SUPERIOR AND INFERIOR REGIONS, FLUORO TIME- 2:52 26 fluoroscopic spot series obtained
[2022-04-23] MEDS: AMLODIPINE 5 MG TAB PO SCH (12:18)
[2022-04-23 17:16] LABS: Arterial Blood Carboxyhemoglob 1.1 % (0-1.5); Blood Gas Oxyhemoglobin 96.4 % (94-97); Blood O2 Saturation 98.7 % (92-98.5)
--- NOTE | 2022-04-23 17:17 | RAD REPORT ---
EXAM DESCRIPTION: RAD - Chest Single View - 04/23/2022 5:04 pm CLINICAL HISTORY: R/O pnuemonia Chest pain. COMPARISON: Abdomen 1 View (KUB) dated 04/20/2022; Chest Single View dated 04/20/2022; Chest Single Vi ew dated 04/15/2022; Chest Single View dated 04/14/2022 FINDINGS: Portable technique limits examination quality. Asymmetric interstitial lung opacities are present, greater on the right, likely representing asymmet cecil pulmonary edema or pneumonia. The heart is mildly enlarged size. Small right pleural effusion.
[2022-04-23] MEDS: DOCUSATE NA/SENNA CONC 1 TAB PO SCH (19:48)
[2022-04-24] MEDS: PIPER TAZO 3.375 GM in NA CHLORIDE 0.9% 100 ML IV SCH ×3 (00:28→16:51)
[2022-04-24] MEDS: HYDROCODONE/APAP 5/325 MG TAB PO PRN ×4 (03:30→18:51)
[2022-04-24] MEDS: ARFORMOTEROL TARTRATE 15 MCG/2 ML VIAL.NEB NEB SCH ×2 (07:44→20:25)
[2022-04-24] MEDS: IPRATROPIUM BROM 0.5MG/2.5ML NEB PRN (07:44)
[2022-04-24] MEDS: ALBUTEROL 2.5 MG/3 ML NEB SOL NEB PRN (07:44)
[2022-04-24] MEDS: FE SULF/FA/VIT B COMP & C TAB PO SCH (07:54)
[2022-04-24] MEDS: GABAPENTIN 300 MG CAP PO SCH ×2 (07:55→20:30)
[2022-04-24] MEDS: acetaZOLAMIDE 250 MG TAB PO SCH (07:55)
[2022-04-24] MEDS: LIDOCAINE 4% PATCH TOP SCH (07:55)
[2022-04-24] MEDS: PANTOPRAZOLE 40MG TABLET PO SCH ×2 (07:55→16:28)
[2022-04-24] MEDS: FOLIC ACID 1 MG TABLET PO SCH (07:56)
[2022-04-24] MEDS: carvediloL 12.5 MG TAB PO SCH ×2 (07:56→20:31)
[2022-04-24] MEDS: predniSONE 10 MG TAB PO SCH ×2 (07:57→20:30)
[2022-04-24] MEDS: LORATADINE 10 MG TAB PO SCH (07:57)
[2022-04-24] MEDS: POTASSIUM CL SA 10 MEQ TAB PO SCH (07:57)
[2022-04-24] MEDS: MAGNESIUM OXIDE 400 MG TAB PO SCH ×2 (07:58→20:30)
[2022-04-24] MEDS: LOSARTAN POTASSIUM 50 MG TABLET PO SCH (09:48)
[2022-04-24] MEDS: ENSURE HIGH PROTEIN 237 ML CAN PO SCH ×2 (09:49→20:30)
[2022-04-24] MEDS: TRELEGY ELLIPTA IH SCH ×2 (09:55→20:30)
[2022-04-24] MEDS ORDERED: dexAMETHasone 4 MG/ML VIAL IV ONE (10:00)
[2022-04-24] MEDS: AMLODIPINE 5 MG TAB PO SCH (13:33)
[2022-04-24] MEDS: DOCUSATE NA/SENNA CONC 1 TAB PO SCH (20:30)
--- NOTE | 2022-04-24 23:10 | R.PN ---
PROGRESS NOTES ENCOUNTER DATE AND TIME: 04/24/2022 08:08 (CDT) NAME BENJY SOTO DATE OF : 1935 DATE OF ADMISSION: 04/19/2022 17:40 (CDT) K92.2 Acute Upper GI BleedCHIEF COMPLAINT: Upper GI bleed SUBJECTIVE: Pt denied any Shortness of Breath. Pt denied any depression. WBC slightly decreased to 20.7 from 22.. with 93.3 % neutrophilis. Chest x-ray show possible left ba silar pheumonia, KUB shows no obstruction. Procalcitonin is normal at <0.05. She is on Zosyn 3.375 mg q 8 hours. Sputum cultures show 4+ gram negative rods, sensitivity is pending. VITAL SIGNS Temperature: 97.8 F SBP/DBP: 114/56 Pulse: 63 Resp: 16 MEDICATION ALLERGIES: CLINDAMYCIN CODINE ENVIRONMENTAL ALLERGIES: - Substance Allergies None Known - Other Allergies None Known NURSING: - Shower allowing shower ACTIVITIES OOB only with supervision THERAPIES: - Dietary and Nutrition Adequate Nutrition. Nutritional Education. Nutritional Supplements. Evaluate and Treat. - Occupational Therapy Cognitive Retraining. Patient needs Occupational Therapy for a daily minimum of 1.5 hours at least 5 out of 7 days, to improve Activities of Daily Living, including: Eating, Grooming, Bathing, Dressing, Toileting, Toilet Transfers, Community Reintegration, Higher functional activities, Adaptive Equipme nt, Splinting, Household Tasks, and Other activities as determined. Visual Perceptual Training. Patie nt/Family Education. ADL Training. Evaluate and Treat. Transfer Training. Household Tasks. - Speech Therapy Cognitive Training. Expressive Language Skills. Memory Strategies. Patient needs Speech Therapy for a daily minimum of 1.5 hours at least 5 out of 7 days, to improve: Swallowing, Cognition, Language Ski lls, and Compensatory Strategies. Receptive Language Skills. Speech Intelligibility Training. Evaluat e and Treat. - Physical Therapy Patient needs Physical Therapy for a daily minimum of 1.5 hours at least 5 out of 7 days, to improve: Mobility, Strengthening, Transfers, Stretching, ROM, Endurance, Ability to manage stairs, Gait, and Balance. Gait Training. Balance Training. Safety Awareness. Transfer Training. Evaluate and Treat. Pa tient/Family Education. LE Strengthening. PHYSICAL EXAM - Gen Alert and awake Lying in bed No apparent distress Oriented to: person, time, and place - Skin No breakdown No abnormalities - Eyes No abnormalities - ENMT No abnormalities - Neck No abnormalities - CVS RRR - Chest No abnormalities - Resp Clear to auscultation - Abd + bowel sounds - GI Soft Deferred - No abnormalities - Ext No significant edema - MSK 4/5 weakness in both lower extremities. - Neuro No focal deficits - Psych No abnormalities ASSESSMENT: Pt. is a 87 yo Right-handed female.On 04/14/2022 she was admitted to [facility] with katherin gnosis K92.2 Acute Upper GI Bleed.Her impairment category is Debility 16 - Debility (16).Pre-morbidl y, Pt. was independent/mod-I in Locomotion, Safety Awareness, Social Cognition, and Balance; and she had good Transfers Control, Sphincter Control, Self-Care, Communication, and Endurance.Currently, she has deficits of Locomotion, Safety Awareness, Social Cognition, Balance, Transfers Control, Self-Car e, Sphincter Control, Communication, and Endurance.Pt. is now referred to [facility] for acute in-patient rehabilitation in order to maximize patient's functional independence in activities of daily living, strength, ROM, and mobility.- Rehab Goal Patient has realistic goal of being discharged at assistance level 7-Ind to reside at Home with Fami ly/Relatives. MDM/PLAN: - Physical Therapy Gait dysfunction - to improve, our physical therapists will perform initial evaluation of pt's statu s upon admission and devise an individualized program for Gait Training, and Wheel Chair mobility Inability to transfer - to improve, our physical therapists will perform initial evaluation of pt's status upon admission and devise an individualized program for Bed mobility Need for home safety evaluation - to improve, our physical therapists will perform initial evaluatio n of pt's status upon admission and devise an individualized program for Home Evaluation Need in caregiver upon discharge - to improve, our physical therapists will perform initial evaluati on of pt's status upon admission and devise an individualized program for Caregiver Training New precaution - to improve, our physical therapists will perform initial evaluation of pt's status upon admission and devise an individualized program for Patient precaution education Edema - to improve, our physical therapists will perform initial evaluation of pt's status upon admi ssion and devise an individualized program for Elevation Training, and Lymphedema Therapy Poor balance - to improve, our physical therapists will perform initial evaluation of pt's status up on admission and devise an individualized program for Balance Training Poor endurance - to improve, our physical therapists will perform initial evaluation of pt's status upon admission and devise an individualized program for Endurance Training Weakness - to improve, our physical therapists will perform initial evaluation of pt's status upon a dmission and devise an individualized program for Aquatic Therapy, Neuromuscular Reeducation, and Str engthening Achieving independence - to improve, our physical therapists will perform initial evaluation of pt's status upon admission and devise an individualized program for Community Reintegration Activities - Occupational Therapy ADL deficits - to improve, our occupation therapists will perform initial evaluation of pt's status upon admission and devise an individualized program for Bathing, Bed mobility, Community Reintegratio n, Cooking, Dressing, Eating, Fine Motor Skills, Grooming, Homemaking, Kitchen Mobility, Laundry, Pat ient Education, Safety Awareness, Splinting - Positioning, Transfers(Toilet, Tub, Shower), and Wheel Chair Management Cognitive deficits - to improve, our occupation therapists will perform initial evaluation of pt's s tatus upon admission and devise an individualized program for Cognition - orientation Need for career development manager - to improve, our occupation therapists will perform initial evaluation of pt's status upon admission and devise an individualized program for Caregiver Training Weakness - to improve, our occupation therapists will perform initial evaluation of pt's status upon admission and devise an individualized program for Aquatic Therapy, Balance, Endurance, UE ROM, and UE strengthening - Other See attached MAR (Medication Administration Record) - Diet Type Continue Regular - Diet - Liquid Texture Continue Regular - Tube Feed Continue N/A - Diet - Solid Texture Continue Regular - Shower allowing shower FUNCTIONAL STATUS: UPDATED AT WEEKLY TEAM CONFERENCE - Bladder Same accident frequency: 7-Ind - No accidents in the past 7 days - Bowel Same accident frequency: 7-Ind - No accidents in the past 7 days - Walking Same score based on distance walked: 0(N/A) Same score based on distance walked: 1(<=50ft) - Wheelchair Same score based on distance traveled: 0(N/A) FUNCTIONAL STATUS: - Self-Care A. Eating Ind B. Grooming Cyrus C. Bathing modA D. Dressing - Upper Venancio E. Dressing - Lower modA F. Toileting Venancio - Sphincter Control G. Bladder control sup H. Bowel control Cyrus - Transfers Control I. Bed/Chair/Wheelchair modA J. Toilet modA K. Tub/Shower modA - Locomotion L. Walk/Wheelchair (B) modA M. Stairs ADNO - Communication N. Comprehension (B) Cyrus O. Expression (B) Ind - Social Cognition P. Social Interaction Ind Q. Problem Solving Cyrus R. Memory Cyrus - Endurance Poor - Balance Fair - Safety Awareness Good QI SCORES: - Self-Care A. Eating 04-Supervision or touching assistance B. Oral hygiene 04-Supervision or touching assistance C. Toileting hygiene 04-Supervision or touching assistance E. Shower/bathe self 03-Partial/moderate assistance F. Upper body dressing 03-Partial/moderate assistance G. Lower body dressing 03-Partial/moderate assistance H. Putting on/taking off footwear 88-Not attempted due to medical condition or safety concerns - Mobility A. Roll left and right 04-Supervision or touching assistance B. Sit to lying 03-Partial/moderate assistance C. Lying to sitting on side of bed 04-Supervision or touching assistance D. Sit to stand 03-Partial/moderate assistance E. Chair/[id number] transfer 03-Partial/moderate assistance F. Toilet transfer 03-Partial/moderate assistance G. Car transfer 88-Not attempted due to medical condition or safety concerns I. Walk 10 feet 88-Not attempted due to medical condition or safety concerns J. Walk 50 feet with two turns 88-Not attempted due to medical condition or safety concerns K. Walk 150 feet 88-Not attempted due to medical condition or safety concerns L. Walking 10 feet on uneven surfaces 88-Not attempted due to medical condition or safety concerns M. 1 step (curb) 88-Not attempted due to medical condition or safety concerns N. 4 steps 88-Not attempted due to medical condition or safety concerns O. 12 steps 88-Not attempted due to medical condition or safety concerns P. Picking up object 88-Not attempted due to medical condition or safety concerns R. Wheel 50 feet with two turns 88-Not attempted due to medical condition or safety concerns S. Wheel 150 feet 88-Not attempted due to medical condition or safety concerns - Bladder and Bowel Bladder continence Bowel continence - Endurance Fair - Balance Fair - Safety Awareness Fair CURRENT FUNC. DEFICITS: Self-Care, Mobility, Endurance, Balance, and Safety Awareness SIGNATURE PANEL: (CDT)
[2022-04-25] MEDS: PIPER TAZO 3.375 GM in NA CHLORIDE 0.9% 100 ML IV SCH ×3 (00:34→17:09)
[2022-04-25] MEDS: HYDROCODONE/APAP 5/325 MG TAB PO PRN ×3 (05:03→17:13)
[2022-04-25 06:50] LABS: Absolute Lymphocytes (CBC) 0.9 K/uL (0.7-4.9); Hematocrit 26.4 % (36.0-45.0); Lymphocytes % 13.6 % (15.3-44.8); MCV 93.8 fL (80-100); MPV 7.4 fL (7.6-11.3); RBC Red Blood Cell Count 2.81 M/uL (3.86-4.86)
[2022-04-25 07:10] LABS: Magnesium 2.2 mg/dL (1.8-2.4)
[2022-04-25] MEDS: IPRATROPIUM BROM 0.5MG/2.5ML NEB PRN ×2 (07:54→20:40)
[2022-04-25] MEDS: ALBUTEROL 2.5 MG/3 ML NEB SOL NEB PRN (07:54)
[2022-04-25] MEDS: ARFORMOTEROL TARTRATE 15 MCG/2 ML VIAL.NEB NEB SCH ×2 (07:54→20:40)
[2022-04-25] MEDS: PANTOPRAZOLE 40MG TABLET PO SCH ×2 (08:42→17:08)
[2022-04-25] MEDS: FOLIC ACID 1 MG TABLET PO SCH (08:56)
[2022-04-25] MEDS: predniSONE 10 MG TAB PO SCH ×2 (08:56→19:18)
[2022-04-25] MEDS: acetaZOLAMIDE 250 MG TAB PO SCH (08:56)
[2022-04-25] MEDS: LORATADINE 10 MG TAB PO SCH (08:56)
[2022-04-25] MEDS: LOSARTAN POTASSIUM 50 MG TABLET PO SCH (08:57)
[2022-04-25] MEDS: MAGNESIUM OXIDE 400 MG TAB PO SCH ×2 (08:57→19:19)
[2022-04-25] MEDS: FE SULF/FA/VIT B COMP & C TAB PO SCH (08:57)
[2022-04-25] MEDS: carvediloL 12.5 MG TAB PO SCH ×2 (08:57→19:18)
[2022-04-25] MEDS: POTASSIUM CL SA 10 MEQ TAB PO SCH (08:57)
[2022-04-25] MEDS: GABAPENTIN 300 MG CAP PO SCH ×2 (08:57→19:19)
[2022-04-25] MEDS: TRELEGY ELLIPTA IH SCH ×2 (08:59→19:17)
[2022-04-25] MEDS: LIDOCAINE 4% PATCH TOP SCH (08:59)
[2022-04-25] MEDS: ENSURE HIGH PROTEIN 237 ML CAN PO SCH ×2 (10:20→19:19)
[2022-04-25] MEDS: AMLODIPINE 5 MG TAB PO SCH (13:18)
[2022-04-25] MEDS: DOCUSATE NA/SENNA CONC 1 TAB PO SCH (19:17)
[2022-04-25] MEDS: ACETAMINOPHEN 500 MG TAB PO PRN (20:16)
[2022-04-25] MEDS: BACLOFEN 10 MG TAB PO PRN (20:16)
[2022-04-26] MEDS: PIPER TAZO 3.375 GM in NA CHLORIDE 0.9% 100 ML IV SCH ×3 (00:38→16:15)
[2022-04-26] MEDS: HYDROCODONE/APAP 5/325 MG TAB PO PRN ×4 (04:58→20:13)
[2022-04-26] MEDS: PANTOPRAZOLE 40MG TABLET PO SCH ×2 (07:10→16:15)
[2022-04-26] MEDS: TRELEGY ELLIPTA IH SCH ×3 (07:10→20:00)
[2022-04-26] MEDS: POTASSIUM CL SA 10 MEQ TAB PO SCH (07:44)
[2022-04-26] MEDS: acetaZOLAMIDE 250 MG TAB PO SCH (07:44)
[2022-04-26] MEDS: LORATADINE 10 MG TAB PO SCH (07:45)
[2022-04-26] MEDS: LOSARTAN POTASSIUM 50 MG TABLET PO SCH (07:45)
[2022-04-26] MEDS: FOLIC ACID 1 MG TABLET PO SCH (07:45)
[2022-04-26] MEDS: FE SULF/FA/VIT B COMP & C TAB PO SCH (07:45)
[2022-04-26] MEDS: carvediloL 12.5 MG TAB PO SCH ×2 (07:45→19:36)
[2022-04-26] MEDS: ENSURE HIGH PROTEIN 237 ML CAN PO SCH ×2 (07:46→19:37)
[2022-04-26] MEDS: GABAPENTIN 300 MG CAP PO SCH ×2 (07:46→19:36)
[2022-04-26] MEDS: MAGNESIUM OXIDE 400 MG TAB PO SCH ×2 (07:46→19:36)
[2022-04-26] MEDS: predniSONE 10 MG TAB PO SCH ×2 (07:52→19:36)
[2022-04-26] MEDS: ARFORMOTEROL TARTRATE 15 MCG/2 ML VIAL.NEB NEB SCH ×2 (08:00→19:40)
[2022-04-26] MEDS: BACLOFEN 10 MG TAB PO PRN ×2 (08:23→18:26)
[2022-04-26] MEDS: LIDOCAINE 4% PATCH TOP SCH (09:21)
[2022-04-26] MEDS: AMLODIPINE 5 MG TAB PO SCH (11:30)
[2022-04-26] MEDS: NYSTATIN 500,000 UNIT/5 ML UDC PO SCH (19:35)
[2022-04-26] MEDS: DOCUSATE NA/SENNA CONC 1 TAB PO SCH (19:37)
[2022-04-27] MEDS: PIPER TAZO 3.375 GM in NA CHLORIDE 0.9% 100 ML IV SCH ×2 (00:35→06:47)
[2022-04-27] MEDS ORDERED: NA CHLORIDE 0.9% 250 ML ONE (00:43)
[2022-04-27] MEDS: PANTOPRAZOLE 40MG TABLET PO SCH ×2 (06:15→16:22)
[2022-04-27] MEDS: HYDROCODONE/APAP 5/325 MG TAB PO PRN ×4 (06:15→20:15)
[2022-04-27] MEDS: TRELEGY ELLIPTA IH SCH ×2 (06:47→20:00)
[2022-04-27] MEDS: BACLOFEN 10 MG TAB PO PRN ×2 (06:53→18:21)
[2022-04-27] MEDS: LIDOCAINE 4% PATCH TOP SCH (06:54)
[2022-04-27] MEDS: GABAPENTIN 300 MG CAP PO SCH ×2 (07:47→20:15)
[2022-04-27] MEDS: LOSARTAN POTASSIUM 50 MG TABLET PO SCH (07:47)
[2022-04-27] MEDS: carvediloL 12.5 MG TAB PO SCH ×2 (07:47→20:15)
[2022-04-27] MEDS: NYSTATIN 500,000 UNIT/5 ML UDC PO SCH ×3 (07:47→20:15)
[2022-04-27] MEDS: LORATADINE 10 MG TAB PO SCH (07:47)
[2022-04-27] MEDS: acetaZOLAMIDE 250 MG TAB PO SCH (07:48)
[2022-04-27] MEDS: FE SULF/FA/VIT B COMP & C TAB PO SCH (07:48)
[2022-04-27] MEDS: ENSURE HIGH PROTEIN 237 ML CAN PO SCH ×2 (07:48→20:23)
[2022-04-27] MEDS: predniSONE 10 MG TAB PO SCH ×2 (07:48→20:15)
[2022-04-27] MEDS: POTASSIUM CL SA 10 MEQ TAB PO SCH (07:48)
[2022-04-27] MEDS: FOLIC ACID 1 MG TABLET PO SCH (07:48)
[2022-04-27] MEDS: MAGNESIUM OXIDE 400 MG TAB PO SCH ×2 (07:49→20:15)
[2022-04-27] MEDS: ARFORMOTEROL TARTRATE 15 MCG/2 ML VIAL.NEB NEB SCH ×2 (08:00→19:50)
[2022-04-27] MEDS: AMLODIPINE 5 MG TAB PO SCH (11:28)
[2022-04-27] MEDS ORDERED: NITROGLYCERIN 0.4 MG/TAB SL PRN (17:27)
[2022-04-27] MEDS: IPRATROPIUM BROM 0.5MG/2.5ML NEB PRN (19:50)
[2022-04-27] MEDS ORDERED: APIXABAN 2.5 MG TABLET PO SCH (20:00)
--- NOTE | 2022-04-27 20:06 | R.PN ---
PROGRESS NOTES ENCOUNTER DATE AND TIME: 04/27/2022 20:01 (CDT) NAME BENJY SOTO DATE OF : 1935 DATE OF ADMISSION: 04/19/2022 17:40 (CDT) K92.2 Acute Upper GI BleedCHIEF COMPLAINT: Upper GI bleed SUBJECTIVE: Pt denied any Shortness of Breath. Pt denied any depression. WBC slightly decreased to 6.7 from 2.. with 93.3 % neutrophils. Chest x-ray show possible left basil ar pneumonia, KUB shows no obstruction. Procalcitonin is normal at <0.05. She completed on Zosyn 3.37 5 mg q 8 hours. Sputum cultures show 4+ gram negative rods, sensitive to Zosyn. Ambulated 170' with CGA using a walker. VITAL SIGNS Temperature: 97.6 F SBP/DBP: 121/42 Pulse: 53 Resp: 15 MEDICATION ALLERGIES: CLINDAMYCIN CODINE ENVIRONMENTAL ALLERGIES: - Substance Allergies None Known - Other Allergies None Known NURSING: - Shower allowing shower ACTIVITIES OOB only with supervision THERAPIES: - Dietary and Nutrition Adequate Nutrition. Nutritional Education. Nutritional Supplements. Evaluate and Treat. - Occupational Therapy Cognitive Retraining. Patient needs Occupational Therapy for a daily minimum of 1.5 hours at least 5 out of 7 days, to improve Activities of Daily Living, including: Eating, Grooming, Bathing, Dressing, Toileting, Toilet Transfers, Community Reintegration, Higher functional activities, Adaptive Equipme nt, Splinting, Household Tasks, and Other activities as determined. Visual Perceptual Training. Patie nt/Family Education. ADL Training. Evaluate and Treat. Transfer Training. Household Tasks. - Speech Therapy Cognitive Training. Expressive Language Skills. Memory Strategies. Patient needs Speech Therapy for a daily minimum of 1.5 hours at least 5 out of 7 days, to improve: Swallowing, Cognition, Language Ski lls, and Compensatory Strategies. Receptive Language Skills. Speech Intelligibility Training. Evaluat e and Treat. - Physical Therapy Patient needs Physical Therapy for a daily minimum of 1.5 hours at least 5 out of 7 days, to improve: Mobility, Strengthening, Transfers, Stretching, ROM, Endurance, Ability to manage stairs, Gait, and Balance. Gait Training. Balance Training. Safety Awareness. Transfer Training. Evaluate and Treat. Pa tient/Family Education. LE Strengthening. PHYSICAL EXAM - Gen Alert and awake Lying in bed No apparent distress Oriented to: person, time, and place - Skin No breakdown No abnormalities - Eyes No abnormalities - ENMT No abnormalities - Neck No abnormalities - CVS RRR - Chest No abnormalities - Resp Clear to auscultation - Abd + bowel sounds - GI Soft Deferred - No abnormalities - Ext No significant edema - MSK 4/5 weakness in both lower extremities. - Neuro No focal deficits - Psych No abnormalities ASSESSMENT: Pt. is a 87 yo Right-handed female.On 04/14/2022 she was admitted to [facility] with katherin gnosis K92.2 Acute Upper GI Bleed.Her impairment category is Debility 16 - Debility (16).Pre-morbidl y, Pt. was independent/mod-I in Locomotion, Safety Awareness, Social Cognition, and Balance; and she had good Transfers Control, Sphincter Control, Self-Care, Communication, and Endurance.Currently, she has deficits of Locomotion, Safety Awareness, Social Cognition, Balance, Transfers Control, Self-Car e, Sphincter Control, Communication, and Endurance.Pt. is now referred to [facility] for acute in-patient rehabilitation in order to maximize patient's functional independence in activities of daily living, strength, ROM, and mobility.- Rehab Goal Patient has realistic goal of being discharged at assistance level 7-Ind to reside at Home with Fami ly/Relatives. MDM/PLAN: - Physical Therapy Gait dysfunction - to improve, our physical therapists will perform initial evaluation of pt's statu s upon admission and devise an individualized program for Gait Training, and Wheel Chair mobility Inability to transfer - to improve, our physical therapists will perform initial evaluation of pt's status upon admission and devise an individualized program for Bed mobility Need for home safety evaluation - to improve, our physical therapists will perform initial evaluatio n of pt's status upon admission and devise an individualized program for Home Evaluation Need in caregiver upon discharge - to improve, our physical therapists will perform initial evaluati on of pt's status upon admission and devise an individualized program for Caregiver Training New precaution - to improve, our physical therapists will perform initial evaluation of pt's status upon admission and devise an individualized program for Patient precaution education Edema - to improve, our physical therapists will perform initial evaluation of pt's status upon admi ssion and devise an individualized program for Elevation Training, and Lymphedema Therapy Poor balance - to improve, our physical therapists will perform initial evaluation of pt's status up on admission and devise an individualized program for Balance Training Poor endurance - to improve, our physical therapists will perform initial evaluation of pt's status upon admission and devise an individualized program for Endurance Training Weakness - to improve, our physical therapists will perform initial evaluation of pt's status upon a dmission and devise an individualized program for Aquatic Therapy, Neuromuscular Reeducation, and Str engthening Achieving independence - to improve, our physical therapists will perform initial evaluation of pt's status upon admission and devise an individualized program for Community Reintegration Activities - Occupational Therapy ADL deficits - to improve, our occupation therapists will perform initial evaluation of pt's status upon admission and devise an individualized program for Bathing, Bed mobility, Community Reintegratio n, Cooking, Dressing, Eating, Fine Motor Skills, Grooming, Homemaking, Kitchen Mobility, Laundry, Pat ient Education, Safety Awareness, Splinting - Positioning, Transfers(Toilet, Tub, Shower), and Wheel Chair Management Cognitive deficits - to improve, our occupation therapists will perform initial evaluation of pt's s tatus upon admission and devise an individualized program for Cognition - orientation Need for field care manager - to improve, our occupation therapists will perform initial evaluation of pt's status upon admission and devise an individualized program for Caregiver Training Weakness - to improve, our occupation therapists will perform initial evaluation of pt's status upon admission and devise an individualized program for Aquatic Therapy, Balance, Endurance, UE ROM, and UE strengthening - Other See attached MAR (Medication Administration Record) - Diet Type Continue Regular - Diet - Liquid Texture Continue Regular - Tube Feed Continue N/A - Diet - Solid Texture Continue Regular - Shower allowing shower FUNCTIONAL STATUS: UPDATED AT WEEKLY TEAM CONFERENCE - Bladder Same accident frequency: 7-Ind - No accidents in the past 7 days - Bowel Same accident frequency: 7-Ind - No accidents in the past 7 days - Walking Same score based on distance walked: 0(N/A) Same score based on distance walked: 1(<=50ft) - Wheelchair Same score based on distance traveled: 0(N/A) FUNCTIONAL STATUS: - Self-Care A. Eating Ind B. Grooming Cyrus C. Bathing modA D. Dressing - Upper Venancio E. Dressing - Lower modA F. Toileting Venancio - Sphincter Control G. Bladder control sup H. Bowel control Cyrus - Transfers Control I. Bed/Chair/Wheelchair modA J. Toilet modA K. Tub/Shower modA - Locomotion L. Walk/Wheelchair (B) modA M. Stairs ADNO - Communication N. Comprehension (B) Cyrus O. Expression (B) Ind - Social Cognition P. Social Interaction Ind Q. Problem Solving Cyrus R. Memory Cyrus - Endurance Poor - Balance Fair - Safety Awareness Good QI SCORES: - Self-Care A. Eating 04-Supervision or touching assistance B. Oral hygiene 04-Supervision or touching assistance C. Toileting hygiene 04-Supervision or touching assistance E. Shower/bathe self 03-Partial/moderate assistance F. Upper body dressing 03-Partial/moderate assistance G. Lower body dressing 03-Partial/moderate assistance H. Putting on/taking off footwear 88-Not attempted due to medical condition or safety concerns - Mobility A. Roll left and right 04-Supervision or touching assistance B. Sit to lying 03-Partial/moderate assistance C. Lying to sitting on side of bed 04-Supervision or touching assistance D. Sit to stand 03-Partial/moderate assistance E. Chair/[id number] transfer 03-Partial/moderate assistance F. Toilet transfer 03-Partial/moderate assistance G. Car transfer 88-Not attempted due to medical condition or safety concerns I. Walk 10 feet 88-Not attempted due to medical condition or safety concerns J. Walk 50 feet with two turns 88-Not attempted due to medical condition or safety concerns K. Walk 150 feet 88-Not attempted due to medical condition or safety concerns L. Walking 10 feet on uneven surfaces 88-Not attempted due to medical condition or safety concerns M. 1 step (curb) 88-Not attempted due to medical condition or safety concerns N. 4 steps 88-Not attempted due to medical condition or safety concerns O. 12 steps 88-Not attempted due to medical condition or safety concerns P. Picking up object 88-Not attempted due to medical condition or safety concerns R. Wheel 50 feet with two turns 88-Not attempted due to medical condition or safety concerns S. Wheel 150 feet 88-Not attempted due to medical condition or safety concerns - Bladder and Bowel Bladder continence Bowel continence - Endurance Fair - Balance Fair - Safety Awareness Fair CURRENT [facility]. DEFICITS: Self-Care, Mobility, Endurance, Balance, and Safety Awareness SIGNATURE PANEL: (CDT)
[2022-04-27] MEDS: DOCUSATE NA/SENNA CONC 1 TAB PO SCH (20:22)
[2022-04-28] MEDS: HYDROCODONE/APAP 5/325 MG TAB PO PRN ×4 (02:30→19:14)
[2022-04-28] MEDS ORDERED: LEVOTHYROXINE SOD 0.025 MG TAB PO SCH (06:30)
[2022-04-28] MEDS: IPRATROPIUM BROM 0.5MG/2.5ML NEB PRN ×2 (06:30→21:40)
[2022-04-28] MEDS: ARFORMOTEROL TARTRATE 15 MCG/2 ML VIAL.NEB NEB SCH ×3 (06:30→21:40)
[2022-04-28] MEDS: FE SULF/FA/VIT B COMP & C TAB PO SCH (07:43)
[2022-04-28] MEDS: POTASSIUM CL SA 10 MEQ TAB PO SCH (07:43)
[2022-04-28] MEDS: FOLIC ACID 1 MG TABLET PO SCH (07:44)
[2022-04-28] MEDS: LORATADINE 10 MG TAB PO SCH (07:44)
[2022-04-28] MEDS: MAGNESIUM OXIDE 400 MG TAB PO SCH ×2 (07:44→19:15)
[2022-04-28] MEDS: acetaZOLAMIDE 250 MG TAB PO SCH (07:44)
[2022-04-28] MEDS: PANTOPRAZOLE 40MG TABLET PO SCH ×2 (07:45→16:44)
[2022-04-28] MEDS: carvediloL 12.5 MG TAB PO SCH ×2 (07:45→19:52)
[2022-04-28] MEDS: predniSONE 10 MG TAB PO SCH (07:47)
[2022-04-28] MEDS: GABAPENTIN 300 MG CAP PO SCH ×2 (07:47→19:15)
[2022-04-28] MEDS: NYSTATIN 500,000 UNIT/5 ML UDC PO SCH ×3 (07:47→19:15)
[2022-04-28] MEDS: LIDOCAINE 4% PATCH TOP SCH (07:48)
[2022-04-28] MEDS: TRELEGY ELLIPTA IH SCH ×2 (07:56→19:15)
[2022-04-28] MEDS ORDERED: ATORVASTATIN 40 MG TAB PO SCH (08:00)
[2022-04-28] MEDS ORDERED: TAMSULOSIN 0.4 MG SR CAP PO SCH (08:00)
[2022-04-28] MEDS ORDERED: AMLODIPINE 10 MG TAB PO SCH (08:00)
[2022-04-28] MEDS ORDERED: FAMOTIDINE 20 MG TAB PO SCH (08:00)
[2022-04-28] MEDS ORDERED: ISOSORBIDE MONO SR 30 MG TAB PO SCH (08:00)
[2022-04-28] MEDS: LOSARTAN POTASSIUM 50 MG TABLET PO SCH (09:54)
[2022-04-28] MEDS: ENSURE HIGH PROTEIN 237 ML CAN PO SCH ×2 (09:55→19:15)
[2022-04-28] MEDS: BACLOFEN 10 MG TAB PO PRN (10:26)
[2022-04-28] MEDS: ACETAMINOPHEN 500 MG TAB PO PRN (16:44)
[2022-04-28] MEDS: DOCUSATE NA/SENNA CONC 1 TAB PO SCH ×2 (19:15→21:00)
--- NOTE | 2022-04-28 20:13 | R.PN ---
PROGRESS NOTES ENCOUNTER DATE AND TIME: 04/28/2022 20:09 (CDT) NAME BENJY SOTO DATE OF : 1935 DATE OF ADMISSION: 04/19/2022 17:40 (CDT) K92.2 Acute Upper GI BleedCHIEF COMPLAINT: Upper GI bleed SUBJECTIVE: Pt denied any Shortness of Breath. Pt denied any depression. WBC slightly decreased to 6.7 from 2.. with 93.3 % neutrophils. Chest x-ray show possible left basil ar pneumonia, KUB shows no obstruction. Procalcitonin is normal at <0.05. She completed on Zosyn 3.37 5 mg q 8 hours. Sputum cultures show 4+ gram negative rods, sensitive to Zosyn. Ambulated 92' with CGA using a walker. VITAL SIGNS Temperature: 97.6 F SBP/DBP: 119 to 180/44 to 79 Pulse: 61 Resp: 16 MEDICATION ALLERGIES: CLINDAMYCIN CODINE ENVIRONMENTAL ALLERGIES: - Substance Allergies None Known - Other Allergies None Known NURSING: - Shower allowing shower ACTIVITIES OOB only with supervision THERAPIES: - Dietary and Nutrition Adequate Nutrition. Nutritional Education. Nutritional Supplements. Evaluate and Treat. - Occupational Therapy Cognitive Retraining. Patient needs Occupational Therapy for a daily minimum of 1.5 hours at least 5 out of 7 days, to improve Activities of Daily Living, including: Eating, Grooming, Bathing, Dressing, Toileting, Toilet Transfers, Community Reintegration, Higher functional activities, Adaptive Equipme nt, Splinting, Household Tasks, and Other activities as determined. Visual Perceptual Training. Patie nt/Family Education. ADL Training. Evaluate and Treat. Transfer Training. Household Tasks. - Speech Therapy Cognitive Training. Expressive Language Skills. Memory Strategies. Patient needs Speech Therapy for a daily minimum of 1.5 hours at least 5 out of 7 days, to improve: Swallowing, Cognition, Language Ski lls, and Compensatory Strategies. Receptive Language Skills. Speech Intelligibility Training. Evaluat e and Treat. - Physical Therapy Patient needs Physical Therapy for a daily minimum of 1.5 hours at least 5 out of 7 days, to improve: Mobility, Strengthening, Transfers, Stretching, ROM, Endurance, Ability to manage stairs, Gait, and Balance. Gait Training. Balance Training. Safety Awareness. Transfer Training. Evaluate and Treat. Pa tient/Family Education. LE Strengthening. PHYSICAL EXAM - Gen Alert and awake Lying in bed No apparent distress Oriented to: person, time, and place - Skin No breakdown No abnormalities - Eyes No abnormalities - ENMT No abnormalities - Neck No abnormalities - CVS RRR - Chest No abnormalities - Resp Clear to auscultation - Abd + bowel sounds - GI Soft Deferred - No abnormalities - Ext No significant edema - MSK 4/5 weakness in both lower extremities. - Neuro No focal deficits - Psych No abnormalities ASSESSMENT: Pt. is a 87 yo Right-handed female.On 04/14/[address] [facility] with katherin gnosis K92.2 Acute Upper GI Bleed.Her impairment category is Debility 16 - Debility (16).Pre-morbidl y, Pt. was independent/mod-I in Locomotion, Safety Awareness, Social Cognition, and Balance; and she had good Transfers Control, Sphincter Control, Self-Care, Communication, and Endurance.Currently, she has deficits of Locomotion, Safety Awareness, Social Cognition, Balance, Transfers Control, Self-Car e, Sphincter Control, Communication, and Endurance.Pt. is now referred to [facility] for acute in-patient rehabilitation in order to maximize patient's functional independence in activities of daily living, strength, ROM, and mobility.- Rehab Goal Patient has realistic goal of being discharged at assistance level 7-Ind to reside at Home with Fami ly/Relatives. MDM/PLAN: - Physical Therapy Gait dysfunction - to improve, our physical therapists will perform initial evaluation of pt's statu s upon admission and devise an individualized program for Gait Training, and Wheel Chair mobility Inability to transfer - to improve, our physical therapists will perform initial evaluation of pt's status upon admission and devise an individualized program for Bed mobility Need for home safety evaluation - to improve, our physical therapists will perform initial evaluatio n of pt's status upon admission and devise an individualized program for Home Evaluation Need in caregiver upon discharge - to improve, our physical therapists will perform initial evaluati on of pt's status upon admission and devise an individualized program for Caregiver Training New precaution - to improve, our physical therapists will perform initial evaluation of pt's status upon admission and devise an individualized program for Patient precaution education Edema - to improve, our physical therapists will perform initial evaluation of pt's status upon admi ssion and devise an individualized program for Elevation Training, and Lymphedema Therapy Poor balance - to improve, our physical therapists will perform initial evaluation of pt's status up on admission and devise an individualized program for Balance Training Poor endurance - to improve, our physical therapists will perform initial evaluation of pt's status upon admission and devise an individualized program for Endurance Training Weakness - to improve, our physical therapists will perform initial evaluation of pt's status upon a dmission and devise an individualized program for Aquatic Therapy, Neuromuscular Reeducation, and Str engthening Achieving independence - to improve, our physical therapists will perform initial evaluation of pt's status upon admission and devise an individualized program for Community Reintegration Activities - Occupational Therapy ADL deficits - to improve, our occupation therapists will perform initial evaluation of pt's status upon admission and devise an individualized program for Bathing, Bed mobility, Community Reintegratio n, Cooking, Dressing, Eating, Fine Motor Skills, Grooming, Homemaking, Kitchen Mobility, Laundry, Pat ient Education, Safety Awareness, Splinting - Positioning, Transfers(Toilet, Tub, Shower), and Wheel Chair Management Cognitive deficits - to improve, our occupation therapists will perform initial evaluation of pt's s tatus upon admission and devise an individualized program for Cognition - orientation Need for lawn care technician - to improve, our occupation therapists will perform initial evaluation of pt's status upon admission and devise an individualized program for Caregiver Training Weakness - to improve, our occupation therapists will perform initial evaluation of pt's status upon admission and devise an individualized program for Aquatic Therapy, Balance, Endurance, UE ROM, and UE strengthening - Other See attached MAR (Medication Administration Record) - Diet Type Continue Regular - Diet - Liquid Texture Continue Regular - Tube Feed Continue N/A - Diet - Solid Texture Continue Regular - Shower allowing shower FUNCTIONAL STATUS: UPDATED AT WEEKLY TEAM CONFERENCE - Bladder Same accident frequency: 7-Ind - No accidents in the past 7 days - Bowel Same accident frequency: 7-Ind - No accidents in the past 7 days - Walking Same score based on distance walked: 0(N/A) Same score based on distance walked: 1(<=50ft) - Wheelchair Same score based on distance traveled: 0(N/A) FUNCTIONAL STATUS: - Self-Care A. Eating Ind B. Grooming Cyrus C. Bathing modA D. Dressing - Upper Venancio E. Dressing - Lower modA F. Toileting Venancio - Sphincter Control G. Bladder control sup H. Bowel control Cyrus - Transfers Control I. Bed/Chair/Wheelchair modA J. Toilet modA K. Tub/Shower modA - Locomotion L. Walk/Wheelchair (B) modA M. Stairs ADNO - Communication N. Comprehension (B) Cyrus O. Expression (B) Ind - Social Cognition P. Social Interaction Ind Q. Problem Solving Cyrus R. Memory Cyrus - Endurance Poor - Balance Fair - Safety Awareness Good QI SCORES: - Self-Care A. Eating 04-Supervision or touching assistance B. Oral hygiene 04-Supervision or touching assistance C. Toileting hygiene 04-Supervision or touching assistance E. Shower/bathe self 03-Partial/moderate assistance F. Upper body dressing 03-Partial/moderate assistance G. Lower body dressing 03-Partial/moderate assistance H. Putting on/taking off footwear 88-Not attempted due to medical condition or safety concerns - Mobility A. Roll left and right 04-Supervision or touching assistance B. Sit to lying 03-Partial/moderate assistance C. Lying to sitting on side of bed 04-Supervision or touching assistance D. Sit to stand 03-Partial/moderate assistance E. Chair/djv-ef-ujswl transfer 03-Partial/moderate assistance F. Toilet transfer 03-Partial/moderate assistance G. Car transfer 88-Not attempted due to medical condition or safety concerns I. Walk 10 feet 88-Not attempted due to medical condition or safety concerns J. Walk 50 feet with two turns 88-Not attempted due to medical condition or safety concerns K. Walk 150 feet 88-Not attempted due to medical condition or safety concerns L. Walking 10 feet on uneven surfaces 88-Not attempted due to medical condition or safety concerns M. 1 step (curb) 88-Not attempted due to medical condition or safety concerns N. 4 steps 88-Not attempted due to medical condition or safety concerns O. 12 steps 88-Not attempted due to medical condition or safety concerns P. Picking up object 88-Not attempted due to medical condition or safety concerns R. Wheel 50 feet with two turns 88-Not attempted due to medical condition or safety concerns S. Wheel 150 feet 88-Not attempted due to medical condition or safety concerns - Bladder and Bowel Bladder continence Bowel continence - Endurance Fair - Balance Fair - Safety Awareness Fair CURRENT [facility]. DEFICITS: Self-Care, Mobility, Endurance, Balance, and Safety Awareness SIGNATURE PANEL: (CDT)
[2022-04-29] MEDS: HYDROCODONE/APAP 5/325 MG TAB PO PRN ×5 (03:10→20:45)
[2022-04-29] MEDS: BACLOFEN 10 MG TAB PO PRN ×2 (04:58→19:52)
[2022-04-29 06:09] LABS: Absolute Lymphocytes (CBC) 1.8 K/uL (0.7-4.9); Hematocrit 27.9 % (36.0-45.0); Lymphocytes % 26.2 % (15.3-44.8); MCV 94.1 fL (80-100); MPV 7.4 fL (7.6-11.3); RBC Red Blood Cell Count 2.97 M/uL (3.86-4.86)
[2022-04-29 06:31] LABS: Albumin 2.4 g/dL (3.4-5.0); Magnesium 2.2 mg/dL (1.8-2.4); Potassium 4.5 mmol/L (3.5-5.1); Prealbumin 21.5 mg/dL (20-40)
[2022-04-29] MEDS: ARFORMOTEROL TARTRATE 15 MCG/2 ML VIAL.NEB NEB SCH ×2 (07:11→20:03)
[2022-04-29] MEDS: IPRATROPIUM BROM 0.5MG/2.5ML NEB PRN (07:11)
[2022-04-29] MEDS: PANTOPRAZOLE 40MG TABLET PO SCH ×2 (07:26→16:28)
[2022-04-29] MEDS: TRELEGY ELLIPTA IH SCH ×2 (07:26→19:51)
[2022-04-29 07:39] LABS: Anisocytosis 1+; Blood Morphology Comment NOTED (NOT SEEN); Platelet Estimate ADEQ; White Blood Cell Scan OK (OK)
[2022-04-29] MEDS: NYSTATIN 500,000 UNIT/5 ML UDC PO SCH ×3 (08:17→19:50)
[2022-04-29] MEDS: FOLIC ACID 1 MG TABLET PO SCH (08:17)
[2022-04-29] MEDS: LORATADINE 10 MG TAB PO SCH (08:17)
[2022-04-29] MEDS: GABAPENTIN 300 MG CAP PO SCH ×2 (08:18→19:51)
[2022-04-29] MEDS: predniSONE 10 MG TAB PO SCH (08:18)
[2022-04-29] MEDS: FE SULF/FA/VIT B COMP & C TAB PO SCH (08:18)
[2022-04-29] MEDS: LOSARTAN POTASSIUM 50 MG TABLET PO SCH (08:18)
[2022-04-29] MEDS: acetaZOLAMIDE 250 MG TAB PO SCH (08:18)
[2022-04-29] MEDS: MAGNESIUM OXIDE 400 MG TAB PO SCH ×2 (08:19→19:50)
[2022-04-29] MEDS: POTASSIUM CL SA 10 MEQ TAB PO SCH (08:19)
[2022-04-29] MEDS: ENSURE HIGH PROTEIN 237 ML CAN PO SCH ×2 (08:19→19:50)
[2022-04-29] MEDS: carvediloL 12.5 MG TAB PO SCH ×2 (08:19→19:51)
[2022-04-29] MEDS: LIDOCAINE 4% PATCH TOP SCH (09:21)
--- NOTE | 2022-04-29 17:58 | R.PN ---
PROGRESS NOTES ENCOUNTER DATE AND TIME: 04/29/2022 17:53 (CDT) NAME BEJNY SOTO DATE OF : 1935 DATE OF ADMISSION: 04/19/2022 17:40 (CDT) K92.2 Acute Upper GI BleedCHIEF COMPLAINT: Upper GI bleed SUBJECTIVE: Pt denied any Shortness of Breath. Pt denied any depression. WBC decreased to 6.8 from 22.7, with 63.4 % neutrophils. Chest x-ray show possible left basilar pneu monia, KUB shows no obstruction. Procalcitonin is normal at <0.05. She completed on Zosyn 3.375 mg q 8 hours. Sputum cultures show 4+ gram negative rods, sensitive to Zosyn. Ambulated 50' with Standby assistance using a walker. VITAL SIGNS Temperature: 97.6 F SBP/DBP: 149/63 Pulse: 54 Resp: 16 MEDICATION ALLERGIES: CLINDAMYCIN CODINE ENVIRONMENTAL ALLERGIES: - Substance Allergies None Known - Other Allergies None Known NURSING: - Shower allowing shower ACTIVITIES OOB only with supervision THERAPIES: - Dietary and Nutrition Adequate Nutrition. Nutritional Education. Nutritional Supplements. Evaluate and Treat. - Occupational Therapy Cognitive Retraining. Patient needs Occupational Therapy for a daily minimum of 1.5 hours at least 5 out of 7 days, to improve Activities of Daily Living, including: Eating, Grooming, Bathing, Dressing, Toileting, Toilet Transfers, Community Reintegration, Higher functional activities, Adaptive Equipme nt, Splinting, Household Tasks, and Other activities as determined. Visual Perceptual Training. Patie nt/Family Education. ADL Training. Evaluate and Treat. Transfer Training. Household Tasks. - Speech Therapy Cognitive Training. Expressive Language Skills. Memory Strategies. Patient needs Speech Therapy for a daily minimum of 1.5 hours at least 5 out of 7 days, to improve: Swallowing, Cognition, Language Ski lls, and Compensatory Strategies. Receptive Language Skills. Speech Intelligibility Training. Evaluat e and Treat. - Physical Therapy Patient needs Physical Therapy for a daily minimum of 1.5 hours at least 5 out of 7 days, to improve: Mobility, Strengthening, Transfers, Stretching, ROM, Endurance, Ability to manage stairs, Gait, and Balance. Gait Training. Balance Training. Safety Awareness. Transfer Training. Evaluate and Treat. Pa tient/Family Education. LE Strengthening. PHYSICAL EXAM - Gen Alert and awake Lying in bed No apparent distress Oriented to: person, time, and place - Skin No breakdown No abnormalities - Eyes No abnormalities - ENMT No abnormalities - Neck No abnormalities - CVS RRR - Chest No abnormalities - Resp Clear to auscultation - Abd + bowel sounds - GI Soft Deferred - No abnormalities - Ext No significant edema - MSK 4/5 weakness in both lower extremities. - Neuro No focal deficits - Psych No abnormalities ASSESSMENT: Pt. is a 87 yo Right-handed female.On 04/14/2022 she was admitted to [facility] with katherin gnosis K92.2 Acute Upper GI Bleed.Her impairment category is Debility 16 - Debility (16).Pre-morbidl y, Pt. was independent/mod-I in Locomotion, Safety Awareness, Social Cognition, and Balance; and she had good Transfers Control, Sphincter Control, Self-Care, Communication, and Endurance.Currently, she has deficits of Locomotion, Safety Awareness, Social Cognition, Balance, Transfers Control, Self-Car e, Sphincter Control, Communication, and Endurance.Pt. is now referred to [facility] for acute in-patient rehabilitation in order to maximize patient's functional independence in activities of daily living, strength, ROM, and mobility.- Rehab Goal Patient has realistic goal of being discharged at assistance level 7-Ind to reside at Home with Fami ly/Relatives. MDM/PLAN: - Physical Therapy Gait dysfunction - to improve, our physical therapists will perform initial evaluation of pt's statu s upon admission and devise an individualized program for Gait Training, and Wheel Chair mobility Inability to transfer - to improve, our physical therapists will perform initial evaluation of pt's status upon admission and devise an individualized program for Bed mobility Need for home safety evaluation - to improve, our physical therapists will perform initial evaluatio n of pt's status upon admission and devise an individualized program for Home Evaluation Need in caregiver upon discharge - to improve, our physical therapists will perform initial evaluati on of pt's status upon admission and devise an individualized program for Caregiver Training New precaution - to improve, our physical therapists will perform initial evaluation of pt's status upon admission and devise an individualized program for Patient precaution education Edema - to improve, our physical therapists will perform initial evaluation of pt's status upon admi ssion and devise an individualized program for Elevation Training, and Lymphedema Therapy Poor balance - to improve, our physical therapists will perform initial evaluation of pt's status up on admission and devise an individualized program for Balance Training Poor endurance - to improve, our physical therapists will perform initial evaluation of pt's status upon admission and devise an individualized program for Endurance Training Weakness - to improve, our physical therapists will perform initial evaluation of pt's status upon a dmission and devise an individualized program for Aquatic Therapy, Neuromuscular Reeducation, and Str engthening Achieving independence - to improve, our physical therapists will perform initial evaluation of pt's status upon admission and devise an individualized program for Community Reintegration Activities - Occupational Therapy ADL deficits - to improve, our occupation therapists will perform initial evaluation of pt's status upon admission and devise an individualized program for Bathing, Bed mobility, Community Reintegratio n, Cooking, Dressing, Eating, Fine Motor Skills, Grooming, Homemaking, Kitchen Mobility, Laundry, Pat ient Education, Safety Awareness, Splinting - Positioning, Transfers(Toilet, Tub, Shower), and Wheel Chair Management Cognitive deficits - to improve, our occupation therapists will perform initial evaluation of pt's s tatus upon admission and devise an individualized program for Cognition - orientation Need for nanny caregiver - to improve, our occupation therapists will perform initial evaluation of pt's status upon admission and devise an individualized program for Caregiver Training Weakness - to improve, our occupation therapists will perform initial evaluation of pt's status upon admission and devise an individualized program for Aquatic Therapy, Balance, Endurance, UE ROM, and UE strengthening - Other See attached MAR (Medication Administration Record) - Diet Type Continue Regular - Diet - Liquid Texture Continue Regular - Tube Feed Continue N/A - Diet - Solid Texture Continue Regular - Shower allowing shower FUNCTIONAL STATUS: UPDATED AT WEEKLY TEAM CONFERENCE - Bladder Same accident frequency: 7-Ind - No accidents in the past 7 days - Bowel Same accident frequency: 7-Ind - No accidents in the past 7 days - Walking Same score based on distance walked: 0(N/A) Same score based on distance walked: 1(<=50ft) - Wheelchair Same score based on distance traveled: 0(N/A) FUNCTIONAL STATUS: - Self-Care A. Eating Ind B. Grooming Cyrus C. Bathing modA D. Dressing - Upper Venancio E. Dressing - Lower modA F. Toileting Venancio - Sphincter Control G. Bladder control sup H. Bowel control Cyrus - Transfers Control I. Bed/Chair/Wheelchair modA J. Toilet modA K. Tub/Shower modA - Locomotion L. Walk/Wheelchair (B) modA M. Stairs ADNO - Communication N. Comprehension (B) Cyrus O. Expression (B) Ind - Social Cognition P. Social Interaction Ind Q. Problem Solving Cyrus R. Memory Cyrus - Endurance Poor - Balance Fair - Safety Awareness Good QI SCORES: - Self-Care A. Eating 04-Supervision or touching assistance B. Oral hygiene 04-Supervision or touching assistance C. Toileting hygiene 04-Supervision or touching assistance E. Shower/bathe self 03-Partial/moderate assistance F. Upper body dressing 03-Partial/moderate assistance G. Lower body dressing 03-Partial/moderate assistance H. Putting on/taking off footwear 88-Not attempted due to medical condition or safety concerns - Mobility A. Roll left and right 04-Supervision or touching assistance B. Sit to lying 03-Partial/moderate assistance C. Lying to sitting on side of bed 04-Supervision or touching assistance D. Sit to stand 03-Partial/moderate assistance E. Chair/[id number]-[id number] transfer 03-Partial/moderate assistance F. Toilet transfer 03-Partial/moderate assistance G. Car transfer 88-Not attempted due to medical condition or safety concerns I. Walk 10 feet 88-Not attempted due to medical condition or safety concerns J. Walk 50 feet with two turns 88-Not attempted due to medical condition or safety concerns K. Walk 150 feet 88-Not attempted due to medical condition or safety concerns L. Walking 10 feet on uneven surfaces 88-Not attempted due to medical condition or safety concerns M. 1 step (curb) 88-Not attempted due to medical condition or safety concerns N. 4 steps 88-Not attempted due to medical condition or safety concerns O. 12 steps 88-Not attempted due to medical condition or safety concerns P. Picking up object 88-Not attempted due to medical condition or safety concerns R. Wheel 50 feet with two turns 88-Not attempted due to medical condition or safety concerns S. Wheel 150 feet 88-Not attempted due to medical condition or safety concerns - Bladder and Bowel Bladder continence Bowel continence - Endurance Fair - Balance Fair - Safety Awareness Fair CURRENT [facility]. DEFICITS: Self-Care, Mobility, Endurance, Balance, and Safety Awareness SIGNATURE PANEL: (CDT)
[2022-04-29] MEDS: DOCUSATE NA/SENNA CONC 1 TAB PO SCH (19:51)
[2022-04-30] MEDS: HYDROCODONE/APAP 5/325 MG TAB PO PRN ×5 (01:54→19:57)
[2022-04-30] MEDS: BACLOFEN 10 MG TAB PO PRN ×2 (05:36→18:25)
[2022-04-30] MEDS: ARFORMOTEROL TARTRATE 15 MCG/2 ML VIAL.NEB NEB SCH ×2 (07:54→20:10)
[2022-04-30] MEDS: IPRATROPIUM BROM 0.5MG/2.5ML NEB PRN ×2 (07:54→20:10)
[2022-04-30] MEDS: ALBUTEROL 2.5 MG/3 ML NEB SOL NEB PRN (07:54)
[2022-04-30] MEDS: NYSTATIN 500,000 UNIT/5 ML UDC PO SCH ×2 (08:26→15:42)
[2022-04-30] MEDS: FOLIC ACID 1 MG TABLET PO SCH (08:26)
[2022-04-30] MEDS: FE SULF/FA/VIT B COMP & C TAB PO SCH (08:26)
[2022-04-30] MEDS: acetaZOLAMIDE 250 MG TAB PO SCH (08:28)
[2022-04-30] MEDS: GABAPENTIN 300 MG CAP PO SCH ×2 (08:28→19:56)
[2022-04-30] MEDS: LOSARTAN POTASSIUM 50 MG TABLET PO SCH (08:29)
[2022-04-30] MEDS: predniSONE 10 MG TAB PO SCH (08:29)
[2022-04-30] MEDS: LORATADINE 10 MG TAB PO SCH (08:29)
[2022-04-30] MEDS: PANTOPRAZOLE 40MG TABLET PO SCH ×2 (08:29→16:45)
[2022-04-30] MEDS: MAGNESIUM OXIDE 400 MG TAB PO SCH ×2 (08:29→19:57)
[2022-04-30] MEDS: POTASSIUM CL SA 10 MEQ TAB PO SCH (08:29)
[2022-04-30] MEDS: LIDOCAINE 4% PATCH TOP SCH (08:30)
[2022-04-30] MEDS: ENSURE HIGH PROTEIN 237 ML CAN PO SCH ×2 (08:31→19:57)
[2022-04-30] MEDS: TRELEGY ELLIPTA IH SCH ×2 (08:31→19:57)
--- NOTE | 2022-04-30 09:59 | P.RH.PN ---
Estimated Length of Stay: 13 Expected Discharge Date: 05/02/22 Discharge Disposition Plan: Home Family Support: Yes [facility] Goal: Mobility, Transfers, Self Care Vital Signs: Last Vital Signs Temp 97.3 F 04/30/22 07:55 Pulse 55 04/30/22 07:55 Resp 17 04/30/22 08:28 BP 135/61 04/30/22 07:55 Pulse Ox 96 04/30/22 08:28 Laboratory: Laboratory Last Values WBC 6.8 K/uL (4.3-10.9) 04/29/22 05:27 RBC 2.97 M/uL (3.86-4.86) L 04/29/22 05:27 Hgb 8.9 g/dL (12.0-15.0) L 04/29/22 05:27 Hct 27.9 % (36.0-45.0) L 04/29/22 05:27 MCV 94.1 fL (80-100) 04/29/22 05:27 MCH 30.1 pg (27.0-35.0) 04/29/22 05:27 MCHC 32.0 g/dL (32.0-36.0) 04/29/22 05:27 RDW 20.4 % (12.1-15.2) H D 04/29/22 05:27 Plt Count 260 K/uL (152-406) D 04/29/22 05:27 MPV 7.4 fL (7.6-11.3) L 04/29/22 05:27 Neutrophils % 63.4 % (41.7-73.7) 04/29/22 05:27 Lymphocytes % 26.2 % (15.3-44.8) 04/29/22 05:27 Monocytes % 8.0 % (3.3-12.3) 04/29/22 05:27 Eosinophils % 2.0 % (0-4.4) 04/29/22 05:27 Basophils % 0.4 % (0-1.3) 04/29/22 05:27 Absolute Neutrophils 4.3 K/uL (1.8-8.0) 04/29/22 05:27 Segmented Neutrophils 86 % (40-80) H 04/22/22 06:27 Band Neutrophils 1 % (0-1) 04/22/22 06:27 Absolute Lymphocytes 1.8 K/uL (0.7-4.9) 04/29/22 05:27 Lymphocytes 8 % (15-42) L 04/22/22 06:27 Monocytes 3 % (0-10) 04/22/22 06:27 Absolute Monocytes 0.5 K/uL (0.1-1.3) 04/29/22 05:27 Absolute Eosinophils 0.1 K/uL (0-0.5) 04/29/22 05:27 Absolute Basophils 0.0 K/uL (0-0.5) 04/29/22 05:27 Metamyelocytes 2 % (0-0) H 04/22/22 06:27 Nucleated RBCs 1 /100WBC 04/22/22 06:27 Reactive Lymphocytes 2 % 04/20/22 04:08 Platelet Estimate Adeq 04/29/22 05:27 Clumped Platelets Few 04/22/22 06:27 Basophilic Stippling 1+ 04/20/22 04:08 Anisocytosis 1+ 04/29/22 05:27 Ovalocytes 1+ 04/20/22 04:08 Morphology Comment Noted (NOT SEEN) 04/29/22 05:27 pH 7.25 (7.35-7.45) L 04/23/22 16:40 pCO2 65.4 mmHG (35-45) H 04/23/22 16:40 pO2 144.0 mmHG (75-100) H 04/23/22 16:40 HCO3 27.8 mmol/L (22-28) 04/23/22 16:40 Base Excess 1.3 mmol/L 04/23/22 16:40 Oxyhemoglobin 96.4 % (94-97) 04/23/22 16:40 ABG O2 Sat (Measured) 98.7 % (92-98.5) H 04/23/22 16:40 ABG Carboxyhemoglobin 1.1 % (0-1.5) 04/23/22 16:40 ABG Methemoglobin 1.2 % (0-1.5) 04/23/22 16:40 Other Total Hgb 7.6 g/dl (12-18) L 04/23/22 16:40 Inspired O2 28.0 % 04/23/22 16:40 Sodium 143 mmol/L (136-145) 04/29/22 05:27 Potassium 4.5 mmol/L (3.5-5.1) 04/29/22 05:27 Chloride 113 mmol/L (98-107) H 04/29/22 05:27 Carbon Dioxide 30 mmol/L (21-32) 04/29/22 05:27 Anion Gap 4.5 mEq/L (5.0-15.0) L 04/29/22 05:27 BUN 28 mg/dL (7-18) H 04/29/22 05:27 Creatinine 0.53 mg/dL (0.55-1.3) L 04/29/22 05:27 Est GFR (CKD-EPI) 91 ml/min (=/>90) 04/29/22 05:27 Glucose 89 mg/dL (74-106) 04/29/22 05:27 Lactic Acid Cancelled 04/20/22 05:42 Calcium 8.7 mg/dL (8.5-10.1) 04/29/22 05:27 Magnesium 2.2 mg/dL (1.8-2.4) 04/29/22 05:27 NT-Pro-B Natriuret Pep 2174 pg/mL (<450) H 04/25/22 06:26 Albumin 2.4 g/dL (3.4-5.0) L 04/29/22 05:27 Prealbumin 21.5 mg/dL (20-40) 04/29/22 05:27 Procalcitonin < 0.05 ng/mL (<0.050) 04/20/22 07:45 Urine Color Yellow (Yellow) 04/19/22 23:35 Urine Clarity Clear (Clear) 04/19/22 23:35 Urine pH 7.5 (5.0-7.0) H 04/19/22 23:35 Ur Specific [place] 1.015 (1.005-1.030) 04/19/22 23:35 Glucose (UA)(Auto) Negative (Negative) 04/19/22 23:35 Urine Ketones Negative (Negative) 04/19/22 23:35 Urine Blood Negative (Negative) 04/19/22 23:35 Urine Nitrite Negative (Negative) 04/19/22 23:35 Urine Bilirubin Negative (Negative) 04/19/22 23:35 Urine Urobilinogen 0.2 mg/dL (0.2-1.0) 04/19/22 23:35 Ur Leukocyte Esterase Negative (Negative) 04/19/22 23:35 Urine RBC <5 /HPF (None Seen) 04/19/22 23:35 Urine Red Cell Clumps Cancelled 04/19/22 22:25 Urine WBC None seen /HPF (<5) 04/19/22 23:35 Urine WBC Clumps Cancelled 04/19/22 22:25 Ur Squamous Epith Cells <5 /HPF (None Seen) 04/19/22 23:35 U Non-Squamous Epi Cells <5 /HPF (None Seen) 04/19/22 23:35 Ur Transition Epith Cell Cancelled 04/19/22 22:25 Ur Renal Epithelial Cell Cancelled 04/19/22 22:25 Calcium Carbonate Cryst Cancelled 04/19/22 22:25 Calcium Oxalate Crystal Cancelled 04/19/22 22:25 Leucine Crystals Cancelled 04/19/22 22:25 Cystine Crystals Cancelled 04/19/22 22:25 Uric Acid Crystals Cancelled 04/19/22 22:25 Triple Phos Crystals Cancelled 04/19/22 22:25 Tyrosine Crystals Cancelled 04/19/22 22:25 Unidentified Crystals Cancelled 04/19/22 22:25 Amorphous Crystals Cancelled 04/19/22 22:25 Urine Bacteria <20 /HPF (<20) 04/19/22 23:35 Hyaline Casts Cancelled 04/19/22 22:25 Granular Casts Cancelled 04/19/22 22:25 Waxy Casts Cancelled 04/19/22 22:25 RBC Casts Cancelled 04/19/22 22:25 WBC Casts Cancelled 04/19/22 22:25 Urine Mucus Cancelled 04/19/22 22:25 Urine Trichomonas Cancelled 04/19/22 22:25 Ur Yeast w Hyphae Cancelled 04/19/22 22:25 Urine Yeast (Budding) Cancelled 04/19/22 22:25 Urine Sperm Cancelled 04/19/22 22:25 Ur Oval Fat Bodies Cancelled 04/19/22 22:25 Urine Total Protein Negative (Negative) 04/19/22 23:35 Urine Ascorbic Acid Cancelled 04/19/22 22:25 Urine Fat Cancelled 04/19/22 22:25 SARS-CoV-2 Rap RNA(RT-PCR) Negative (NEGATIVE) 04/27/22 08:45 Smear Scan Ok (OK) 04/29/22 05:27 Weight: 103 lb 8 oz Wound Present: Yes Closed Surgical Incision Present: No Negative Pressure Wound Therapy Present: No Physician Update: Labs reviewed and are stable. Independent with bed mobility, sit to stand, 40' with rolling walker, wheelchair min assistance at 75 feet. Will increase gabapentin. Functional Improvement: Patient has progressed well w/ therapy, and is currently SBA w/ transfers and gait, however is limited by pain in back. Summary: Patient's care plan and helpdesk analyst goals have been reviewed and revised as necessary. Please see the Rehabilitation Signature page for all necessary signatures.
[2022-04-30] MEDS: carvediloL 12.5 MG TAB PO SCH ×2 (10:36→19:56)
[2022-04-30] MEDS ORDERED: NYSTATIN 500,000 UNIT/5 ML UDC PO PRN (16:05)
[2022-04-30] MEDS: DOCUSATE NA/SENNA CONC 1 TAB PO SCH (19:57)
[2022-05-01] MEDS: HYDROCODONE/APAP 5/325 MG TAB PO PRN ×5 (03:53→21:51)
[2022-05-01] MEDS: ARFORMOTEROL TARTRATE 15 MCG/2 ML VIAL.NEB NEB SCH ×2 (08:05→20:05)
[2022-05-01] MEDS: IPRATROPIUM BROM 0.5MG/2.5ML NEB PRN ×2 (08:05→20:05)
[2022-05-01] MEDS: ALBUTEROL 2.5 MG/3 ML NEB SOL NEB PRN (08:05)
[2022-05-01] MEDS: FE SULF/FA/VIT B COMP & C TAB PO SCH (08:36)
[2022-05-01] MEDS: predniSONE 10 MG TAB PO SCH (08:37)
[2022-05-01] MEDS: MAGNESIUM OXIDE 400 MG TAB PO SCH ×2 (08:37→19:42)
[2022-05-01] MEDS: PANTOPRAZOLE 40MG TABLET PO SCH ×2 (08:37→16:38)
[2022-05-01] MEDS: acetaZOLAMIDE 250 MG TAB PO SCH (08:38)
[2022-05-01] MEDS: LORATADINE 10 MG TAB PO SCH (08:40)
[2022-05-01] MEDS: POTASSIUM CL SA 10 MEQ TAB PO SCH (08:40)
[2022-05-01] MEDS: FOLIC ACID 1 MG TABLET PO SCH (08:40)
[2022-05-01] MEDS: LIDOCAINE 4% PATCH TOP SCH (08:41)
[2022-05-01] MEDS: carvediloL 12.5 MG TAB PO SCH ×2 (08:41→19:42)
[2022-05-01] MEDS: ENSURE HIGH PROTEIN 237 ML CAN PO SCH ×2 (08:43→19:43)
[2022-05-01] MEDS: LOSARTAN POTASSIUM 50 MG TABLET PO SCH (10:01)
[2022-05-01] MEDS: GABAPENTIN 300 MG CAP PO SCH ×2 (10:01→19:42)
[2022-05-01] MEDS: TRELEGY ELLIPTA IH SCH ×2 (10:01→19:43)
[2022-05-01 18:07] VITALS: BMI 19.0
[2022-05-01] MEDS: BACLOFEN 10 MG TAB PO PRN (19:42)
[2022-05-01] MEDS: DOCUSATE NA/SENNA CONC 1 TAB PO SCH (19:43)
[2022-05-02] MEDS: HYDROCODONE/APAP 5/325 MG TAB PO PRN ×2 (05:55→10:19)
[2022-05-02] MEDS: TRELEGY ELLIPTA IH SCH (07:16)
[2022-05-02] MEDS: PANTOPRAZOLE 40MG TABLET PO SCH (07:16)
[2022-05-02] MEDS: LIDOCAINE 4% PATCH TOP SCH (07:17)
[2022-05-02] MEDS: ARFORMOTEROL TARTRATE 15 MCG/2 ML VIAL.NEB NEB SCH (07:50)
[2022-05-02 07:55] VITALS: BP 156/71; TEMP 97.8
[2022-05-02] MEDS: carvediloL 12.5 MG TAB PO SCH (08:45)
[2022-05-02] MEDS: acetaZOLAMIDE 250 MG TAB PO SCH (08:46)
[2022-05-02] MEDS: FE SULF/FA/VIT B COMP & C TAB PO SCH (08:46)
[2022-05-02] MEDS: LORATADINE 10 MG TAB PO SCH (08:46)
[2022-05-02] MEDS: GABAPENTIN 300 MG CAP PO SCH (08:46)
[2022-05-02] MEDS: MAGNESIUM OXIDE 400 MG TAB PO SCH (08:47)
[2022-05-02] MEDS: POTASSIUM CL SA 10 MEQ TAB PO SCH (08:47)
[2022-05-02] MEDS: LOSARTAN POTASSIUM 50 MG TABLET PO SCH (08:47)
[2022-05-02] MEDS: predniSONE 10 MG TAB PO SCH (08:47)
[2022-05-02] MEDS: FOLIC ACID 1 MG TABLET PO SCH (08:48)
[2022-05-02] MEDS: ENSURE HIGH PROTEIN 237 ML CAN PO SCH (08:48)
[2022-05-02 09:17] VITALS: O2SAT 96
[2022-05-02] MEDS: BACLOFEN 10 MG TAB PO PRN (12:39)
== END 2022-05-02 13:25 | disposition home health service (06) | DRG 947 ==
LOC: 5TH 21:25
PROVIDERS: ADMIT Psychiatry & Neurology Neurology with Special Qualifications in Child Neurology; ATTEND Psychiatry & Neurology Neurology with Special Qualifications in Child Neurology
DX: R53.81 Other malaise (principal); J18.9 Pneumonia, unspecified organism; I50.32 Chronic diastolic (congestive) heart failure; J44.0 Chronic obstructive pulmonary disease with (acute) lower respiratory infection; D63.8 Anemia in other chronic diseases classified elsewhere; I11.0 Hypertensive heart disease with heart failure; I27.20 Pulmonary hypertension, unspecified; K21.9 Gastro-esophageal reflux disease without esophagitis; Z87.891 Personal history of nicotine dependence; M54.9 Dorsalgia, unspecified; Z20.822 Contact with and (suspected) exposure to COVID-19
CPT/HCPCS: 36415; 71045; 74018; 74230; 80048; 81001; 82040; 82805; 83735; 83880; 84134; 84145; 85025; 87070; 87077; 87086; 87088; 87186; 87205; 92526; 92611; 97110; 97112; 97116; 97161; 97165; 97530; J1100; J2001; J2543; J2916; J7030; J7050; J7512; J7605; U0003